=== PATIENT | female | born 1955 | race Caucasian/White ===

== ENCOUNTER 2020-07-01 11:22 | Outpatient (REF) | payer MEDICARE, SELFPAY ==
[2020-07-01 14:15] LABS: MANUAL DIFF FLAG NO
[2020-07-01 14:22] LABS: Basophils Percent Auto 0.4 % (0-2); Eosinophils Absolute Auto 0.1 X10*3/uL (0.0-0.4); Eosinophils Percent Auto 1.5 % (0-4); Hematocrit 35.3 % (37-47); Hemoglobin 11.3 g/dl (12.0-16.0); Lymphocytes Absolute Auto 1.4 X10*3/uL (1.2-4.9); Lymphocytes Percent Auto 30.7 % (20-40); Mean Corpuscular Hemoglobin 32.1 pg (27.0-33.0); Mean Corpuscular Volume 100.3 fL (80-98); Mean Platelet Volume 11.6 fL (9.4-12.3); Monocytes Absolute Auto 0.3 X10*3/uL (0.1-1.2); Monocytes Percent Auto 6.2 % (2-11); Neutrophils Absolute Auto 2.9 X10*3/uL (2.0-8.3); Neutrophils Percent Auto 61.2 % (45-73); Platelet Count 134 X10*3/uL (160-400); Red Blood Count 3.52 X10*6/uL (4.20-5.50); White Blood Count 4.7 X10*3/uL (4.8-10.8)
[2020-07-01 14:41] LABS: Alanine Aminotransferase 36 U/L (0-31); Albumin Level 4.5 g/dL (3.5-5.0); Alkaline Phosphatase 74 U/L (39-117); Anion Gap 14 (12-20); Aspartate Amino Transferase 38 U/L (5-31); Bilirubin Total 0.3 mg/dL (0.0-1.0); Blood Urea Nitrogen 64 mg/dL (9-16); Calcium 8.9 mg/dL (8.4-10.2); Carbon Dioxide 24 mmol/L (22-29); Chloride 107 mmol/L (96-108); Cholesterol 270 mg/dL; Estimated Glomerular Filt Rate 23; Glucose Fasting 86 mg/dL (60-99); HDL Cholesterol 86 mg/dL; LDL Cholesterol Calculated 167 mg/dl; Potassium 4.5 mmol/l (3.3-5.1); Sodium 140 mmol/L (135-145); Total Protein 6.7 g/dL (6.5-8.0); Triglycerides 85 mg/dL
== END 2020-07-01 11:23 | disposition home or self-care (01) ==
LOC: HO.10HDL 11:22
PROVIDERS: Visit Provider Internal Medicine Medical Oncology
DX: D69.6 Thrombocytopenia, unspecified (principal); E78.00 Pure hypercholesterolemia, unspecified; R63.6 Underweight
CPT/HCPCS: 36415; 80053; 80061; 85025

== ENCOUNTER 2020-07-08 11:24 | Outpatient (REF) | payer MEDICARE, SELFPAY ==
[2020-07-08 14:42] LABS: Erythrocyte Sedimentation Rate 11 MM/HR (0-20)
[2020-07-08 14:48] LABS: Free T4 (Free Thyroxine) 0.91 ng/dL (0.71-1.85); Thyroid Stimulating Hormone 2.02 uIU/mL (0.32-4.0)
== END 2020-07-08 11:25 | disposition home or self-care (01) ==
LOC: HO.10HDL 11:24
PROVIDERS: Visit Provider Internal Medicine Medical Oncology
DX: D69.6 Thrombocytopenia, unspecified (principal); R63.6 Underweight; E06.9 Thyroiditis, unspecified
CPT/HCPCS: 36415; 84439; 84443; 85652

== ENCOUNTER 2020-07-22 10:47 | Outpatient (REF) | payer MEDICARE, SELFPAY ==
[2020-07-22 14:35] LABS: Anion Gap 14 (12-20); Blood Urea Nitrogen 71 mg/dL (9-16); Calcium 8.8 mg/dL (8.4-10.2); Carbon Dioxide 25 mmol/L (22-29); Chloride 107 mmol/L (96-108); Estimated Glomerular Filt Rate 26; Phosphorus 5.4 mg/dL (2.7-4.5); Potassium 4.8 mmol/l (3.3-5.1); Sodium 141 mmol/L (135-145)
[2020-07-22 14:56] LABS: Renal w Reflex Lab Use Only Order verified
== END 2020-07-22 10:48 | disposition home or self-care (01) ==
LOC: HO.10HDL 10:47
PROVIDERS: Visit Provider Internal Medicine Nephrology
DX: R94.4 Abnormal results of kidney function studies (principal); N26.1 Atrophy of kidney (terminal); N18.9 Chronic kidney disease, unspecified
CPT/HCPCS: 36415; 80051; 82310; 82565; 84100; 84520

== ENCOUNTER 2020-08-04 13:44 | Outpatient (REF) | payer MEDICARE, SELFPAY ==
--- NOTE | ~2020-08-04 | MM_ITS ---
EXAMINATION: MM SCREENING DIGITAL BREAST TOMOSYNTHESIS, BILATERAL CLINICAL INFORMATION: Screening. Asymptomatic. The lifetime risk of breast cancer based on the Tyrer-Cuzick Model is 4%. COMPARISON: Mammography: 04/05/2019, 03/17/2018, 03/09/2017 TECHNIQUE: Digital breast tomosynthesis is performed in both the craniocaudal and mediolateral oblique views along with computer-aided detection (CAD). Synthesized 2D images are generated from the tomosynthesis. FINDINGS: The breasts are heterogeneously dense, which may obscure small masses (ACR BI-RADS breast composition Category c). Parenchymal pattern is similar to prior exams. There is no interval mass or architectural abnormality or abnormal calcifications. Some vascular calcifications are seen posterior 11:30 o'clock position left breast. There is mild retroareolar duct ectasia. The axilla and skin contours are unremarkable. MM/MM tomosynthesis screening BI IMPRESSION: No mammographic evidence of malignancy. ASSESSMENT: BI-RADS 2: Benign RECOMMENDATION: Routine annual mammography screening. This patient's information was entered into a reminder system with a target due date for their next mammogram.
--- NOTE | ~2020-08-04 | MM_ITS ---
EXAMINATION: BONE DENSITOMETRY CLINICAL INDICATION: Osteoporosis. COMPARISON: Previous BD dated 05/22/2019 and baseline BD dated 04/01/2016. TECHNIQUE: Using a [employer] DXA System (software version: 13.1) manufactured by [employer], dual-energy x-ray absorptiometry was performed of the lumbar spine and left hip. The images are of good technical quality. Summary results are attached. FINDINGS: AP SPINE L1-L2 (excluding L3 and L4): The data of L1-L4 has been changed to exclude the L3 and L4 vertebral bodies, because degenerative changes at these levels may cause overestimation of lumbar spine density. Current: BMD 1.223 g/cm2, Z-score 2.9, T-score 0.5, normal, 0.3% increase from previous, 1.7% decrease from baseline (<5% change is not significant). Prior: BMD 1.219 g/cm2. Baseline: BMD 1.244 g/cm2. LEFT FEMUR, NECK: Current: BMD 0.839 g/cm2, Z-score 0.6, T-score -1.4, osteopenia. Prior: BMD 0.872 g/cm2. Baseline: BMD 0.989 g/cm2. LEFT FEMUR, TOTAL: Current: BMD 0.985 g/cm2, Z-score 1.7, T-score -0.2, normal, 2.1% decrease from previous, 6.9% decrease from baseline (<5% change is not significant). Prior: BMD 1.006 g/cm2. Baseline: BMD 1.058 g/cm2. IDENTIFIED RISK FACTORS: Menopause, glucocorticoids (chronic), low calcium intake, renal, low body weight. HISTORY OF FRACTURE: None listed. MEDICATIONS: Vitamin D. MM/XR DEXA axial skeleton IMPRESSION: 1. DIAGNOSIS: Osteopenia based on the lowest T-score value of -1.4 in the femoral neck applying World Health Organization criteria. 2. 10-YEAR FRACTURE RISK PREDICTION, FRAX: Major osteoporotic fracture (clinical spine, forearm, hip or shoulder) 11.3%. Hip fracture 1.7%. 3. Treatment Recommendations: NOF guidelines recommend consideration for treatment in postmenopausal women and men age 50 and older presenting with the following: -A hip or vertebral (clinical or morphometric) fracture. -T-score less than or equal to -2.5 at the femoral neck or spine after appropriate evaluation to exclude secondary causes. -Low bone mass at the hip or spine and a 10-year fracture probability by FRAX of greater than or equal to 3% for hip fracture or greater than or equal to 20% for major osteoporotic fracture based on the [place] adapted WHO algorithm. 4. Other Recommendations: All treatment decisions require clinical judgment and consideration of individual patient factors, including patient preferences, comorbidities, previous drug use, risk factors not captured in the FRAX model (e.g. frailty, falls, vitamin D deficiency, increased bone turnover, interval significant decline in bone density) and possible under or overestimation of fracture risk by FRAX. Additional medical evaluation for secondary cause of low bone mineral density may be appropriate. FUTURE SCAN RECOMMENDATION: People with diagnosed cases of osteoporosis or at high risk for fracture should have regular bone mineral density tests. For patients eligible for Medicare, routine testing is allowed once every 2 years. The testing frequency can be increased to one year for patients who have rapidly progressing disease, those who are receiving or discontinuing medical therapy to restore bone mass, or have additional risk factors.
== END 2020-08-04 13:45 | disposition home or self-care (01) ==
LOC: HO.MAMMO 13:44
PROVIDERS: PCP Internal Medicine Medical Oncology; Visit Provider Internal Medicine Medical Oncology
DX: Z12.31 Encounter for screening mammogram for malignant neoplasm of breast (principal); Z13.820 Encounter for screening for osteoporosis; M85.88 Other specified disorders of bone density and structure, other site
CPT/HCPCS: 77063; 77067; 77080

== ENCOUNTER 2020-08-08 09:59 | Day surgery (SDC) | payer MEDICARE, SELFPAY ==
[2020-08-05 14:47] VITALS: BMI 16.5
--- NOTE | 2020-08-07 09:35 | P.CONAN_ITS ---
Documented by User: Alexia Sol 08/07/20 10:59 HPI - Anesthesia Eval Consult details Narrative: 65yo F for Colonoscopy [facility] Past Medical History Medical History (Updated 08/07/20 @ 10:59 by Alexia Sol) Anemia Asthma Chronic kidney disease DDD (degenerative disc disease) Degenerative arthritis of cervical spine Environmental allergies Hypothyroidism Low back pain Neck pain Osteoarthritis Rotator cuff arthropathy of right shoulder Single kidney Thrombocytopenia Surgical History Surgical History (Updated 08/05/20 @ 14:45 by Erin Gallagher) History of tonsillectomy and adenoidectomy Hx of bilateral cataract extraction Hx of colonoscopy Hx of nasal septoplasty Social History Social History (Updated 08/05/20 @ 14:46 by Erin Gallagher) Alcohol intake: current Alcohol intake frequency: holidays/special occasions only Smoking Status: Never smoker Use of substances other than those prescribed or required for medical reasons: No Advance Directives: No Advance Directives Information Provided: No Advance Directives on File: No Meds Allergies Allergy/AdvReac Type Severity Reaction Status Date / Time No Known Allergies Allergy Verified 08/05/20 14:46 Home Medications Medication Instructions Recorded Confirmed Last Taken Type Fish Oil-Vit D3 08/07/20 08/07/20 Unknown History budesonide [Pulmicort Flexhaler] 2 puff PO BID 08/07/20 08/07/20 Unknown History Exam Exam Date and Time: August 07, 2020 0935 Height,Weight and Vital Signs: Height 5 ft 4 in Weight 43.545 kg Pertinent Lab Results Pertinent Lab Results: Laboratory Tests 07/01/20 07/22/20 11:30 10:58 WBC 4.7 L Hgb 11.3 L Hct 35.3 L Plt Count 134 L Sodium 141 Potassium 4.8 Chloride 107 Carbon Dioxide 25 BUN 71 H Creatinine 1.93 H Assessment and Plan Assessment Anesthesia Assessment: Chart Reviewed Documented by User: Elda Singleton 08/08/20 11:38 [facility] Past Medical History Medical History (Updated 08/07/20 @ 10:59 by Alexia Sol) Anemia Asthma Chronic kidney disease DDD (degenerative disc disease) Degenerative arthritis of cervical spine Environmental allergies Hypothyroidism Low back pain Neck pain Osteoarthritis Rotator cuff arthropathy of right shoulder Single kidney Thrombocytopenia Family History Family history of problems with anesthesia: No Surgical History Surgical History (Updated 08/05/20 @ 14:45 by Erin Gallagher) History of tonsillectomy and adenoidectomy Hx of bilateral cataract extraction Hx of colonoscopy Hx of nasal septoplasty History of Problems with Anesthesia: No Social History Social History (Updated 08/05/20 @ 14:46 by Erin Gallagher) Alcohol intake: current Alcohol intake frequency: holidays/special occasions only Smoking Status: Never smoker Use of substances other than those prescribed or required for medical reasons: No Advance Directives: No Advance Directives Information Provided: No Advance Directives on File: No Meds Allergies Allergy/AdvReac Type Severity Reaction Status Date / Time No Known Allergies Allergy Verified 08/05/20 14:46 Home Medications Medication Instructions Recorded Confirmed Last Taken Type Fish Oil-Vit D3 08/07/20 08/07/20 Unknown History budesonide [Pulmicort Flexhaler] 2 puff PO BID 08/07/20 08/07/20 Unknown History Exam Height,Weight and Vital Signs: Vital Signs Temp Pulse Resp BP Pulse Ox 08/08/20 10:46 98.4 F 49 L 18 163/46 H 100 Airway Mallampati Class: III (Small mouth) TM Dist: >3cm Neck ROM: Full Heart: RRR Lungs: CTAB Assessment and Plan Assessment Anesthesia Assessment: Anesthesia Plan Discussed and Chart Reviewed Final Anesthetic Review NPO: Yes ASA Class: III Final Preanesthetic Review: No Changes in Pt Med Stat, Meds/Allgs Chart Reviewed, Consent Obtained/Reviewed and Anes Risks/Benef Reviewed Patient Risk: Intermediate Procedure Risk: Low Assessment/Block/Sedation in SS: Assess/Block/Sedation-SS Anesthetic Plan Anesthetic Plan: MAC: Disposition: Standard PACU
[2020-08-08 10:46] VITALS: BP 163/46; PULSE 49; RESP 18; TEMP 36.9; O2SAT 100
[2020-08-08] MEDS: 0.9 % Sodium Chloride 1,000 ML 50 ML IVCONT (10:53)
--- NOTE | 2020-08-08 11:05 | MHC.SHP ---
Pre-Procedural Eval Section A The patient is an INPATIENT: No Changes since office visit: No Cold of Flu in the past 2 weeks, No New Medical Problems, No Changes in Medication and No Patient answered all questions The History & Physical has been completed within 30 days and I have reviewed it.: Yes Section B Chief Complaint: screening Allergies: Allergies Allergy/AdvReac Type Severity Reaction Status Date / Time No Known Allergies Allergy Verified 08/05/20 14:46 Plan I have reviewed the history and physical and performed a pertinent physical examination on my patient. No changes have occurred unless specified.
[2020-08-08 11:32] VITALS: BP 108/34; PULSE 55; RESP 16; TEMP 36.1; O2SAT 99
--- NOTE | 2020-08-08 11:41 | PM.OP ---
Brief Operative Note Date of Service: 08/08/20 Pre-op diagnosis: screening Post-op diagnosis: same Surgeon: Fady Del Cid Estimated blood loss (mL): 0 Pathology: none sent Condition: stable Disposition: PACU
[2020-08-08 11:47] VITALS: BP 132/51; PULSE 53; RESP 16; TEMP 36.1; O2SAT 100
--- NOTE | 2020-08-08 12:06 | OP_ITS ---
SURGEON: Fady Del Cid MD INDICATIONS: Colon cancer screening and personal history of colon polyps. PREOPERATIVE DIAGNOSIS: POSTOPERATIVE DIAGNOSIS: PROCEDURE PERFORMED: Colonoscopy to the terminal ileum. ESTIMATED BLOOD LOSS: COMPLICATIONS: ANESTHESIA: ASSISTANTS: SPECIMENS: MEDICATIONS: Monitored anesthesia care. DESCRIPTION OF PROCEDURE: History and physical performed. The risks and benefits of the procedure were explained to the patient. Informed consent was obtained. The patient was placed in the left lateral decubitus position. A digital rectal exam was performed and was found to be normal. The Olympus pediatric video colonoscope was introduced into the rectum and advanced to the cecum without difficulty. The cecum was identified by transillumination, palpation, and identification of ileocecal valve. Examination was performed and the scope was removed. She tolerated the procedure well and was taken to recovery area in stable condition. FINDINGS: The terminal ileum was normal. The visualized colonic mucosa was normal. The quality of prep was good. No polyps were identified. Retroflexed examination showed small internal hemorrhoids. IMPRESSION: Normal colonoscopy. RECOMMENDATION: 5-year followup colonoscopy because of personal history of colon polyps should be considered. MD QUINTON Shields/FANNIE / [id number]
== END 2020-08-08 12:05 | disposition home or self-care (01) ==
PROVIDERS: PCP Internal Medicine Medical Oncology; Visit Provider Internal Medicine Gastroenterology
PROC: 0DJD8ZZ Inspection of Lower Intestinal Tract, Via Natural or Artificial Opening Endoscopic (ICD-10-PCS; CPT 45378; principal; 2020-08-08 11:20)
DX: Z12.11 Encounter for screening for malignant neoplasm of colon (principal); K64.8 Other hemorrhoids; Z86.010 Personal history of colon polyps
CPT/HCPCS: G0105

== ENCOUNTER 2020-09-24 11:46 | Outpatient (REF) | payer MEDICARE, SELFPAY ==
[2020-09-24 14:08] LABS: MANUAL DIFF FLAG NO
[2020-09-24 14:16] LABS: Basophils Percent Auto 0.5 % (0-2); Eosinophils Absolute Auto 0.1 X10*3/uL (0.0-0.4); Eosinophils Percent Auto 2.7 % (0-4); Hematocrit 31.2 % (37-47); Hemoglobin 9.6 g/dl (12.0-16.0); Lymphocytes Absolute Auto 1.1 X10*3/uL (1.2-4.9); Mean Corpuscular HGB Conc 30.8 g/dl (31.0-35.0); Mean Corpuscular Hemoglobin 32.1 pg (27.0-33.0); Mean Corpuscular Volume 104.3 fL (80-98); Mean Platelet Volume 11.9 fL (9.4-12.3); Monocytes Absolute Auto 0.4 X10*3/uL (0.1-1.2); Monocytes Percent Auto 8.9 % (2-11); Neutrophils Absolute Auto 2.5 X10*3/uL (2.0-8.3); Neutrophils Percent Auto 61.9 % (45-73); Red Blood Count 2.99 X10*6/uL (4.20-5.50); Red Cell Distribution Width 12.5 % (11.0-16.0)
[2020-09-24 14:19] LABS: Platelet Count 95 X10*3/uL (160-400)
[2020-09-24 14:45] LABS: Alanine Aminotransferase 55 U/L (0-31); Albumin Level 4.4 g/dL (3.5-5.0); Alkaline Phosphatase 101 U/L (39-117); Anion Gap 15 (12-20); Aspartate Amino Transferase 47 U/L (5-31); Bilirubin Total 0.3 mg/dL (0.0-1.0); Blood Urea Nitrogen 58 mg/dL (9-16); Calcium 8.9 mg/dL (8.4-10.2); Carbon Dioxide 25 mmol/L (22-29); Chloride 108 mmol/L (96-108); Cholesterol 172 mg/dL; Estimated Glomerular Filt Rate 27; Glucose Fasting 92 mg/dL (60-99); HDL Cholesterol 91 mg/dL; LDL Cholesterol Calculated 76 mg/dl; Lactate Dehydrogenase 301 U/L (122-220); Potassium 4.7 mmol/L (3.3-5.1); Sodium 143 mmol/L (135-145); Total Protein 6.5 g/dL (6.5-8.0); Triglycerides 29 mg/dL
== END 2020-09-24 11:47 | disposition home or self-care (01) ==
LOC: HO.10HDL 11:46
PROVIDERS: Visit Provider Internal Medicine Medical Oncology
DX: E06.9 Thyroiditis, unspecified (principal); R63.6 Underweight; D69.6 Thrombocytopenia, unspecified; E78.00 Pure hypercholesterolemia, unspecified
CPT/HCPCS: 36415; 80053; 80061; 82550; 83615; 85025

== ENCOUNTER 2020-10-09 09:26 | Outpatient (REF) | payer MEDICARE, SELFPAY ==
--- NOTE | ~2020-10-09 | US_ITS ---
EXAMINATION: US ABDOMEN COMPLETE CLINICAL INFORMATION: Enlarged spleen. COMPARISON: Renal ultrasound 11/05/2016. TECHNIQUE: Real-time imaging of the abdominal viscera. Technically limited study secondary to thin body habitus. FINDINGS: PANCREAS: Normal. ABDOMINAL AORTA: The proximal, mid, and distal segments are normal in caliber. INFERIOR VENA CAVA: Visualized portions are normal. LIVER: Normal. The liver is normal in size. The liver contour is normal. Parenchymal echogenicity is normal. No focal hepatic lesion. There is no intrahepatic biliary duct dilatation seen. GALLBLADDER: Normal. The gallbladder is physiologically distended without evidence of stones, sludge, polyps, wall thickening or pericholecystic fluid. COMMON BILE DUCT: Normal in caliber measuring 0.3 cm in diameter. RIGHT KIDNEY: There is a 9 x 10 x 7 mm cyst in the upper pole. No hydronephrosis or renal calculi. The kidney measures 9.0 cm in maximum dimension. LEFT KIDNEY: Normal. No hydronephrosis. No renal calculi or focal parenchymal lesions. The kidney measures 7.9 cm in maximum dimension. SPLEEN: Normal. The spleen measures 11.9 cm in maximum dimension. FREE FLUID: None. US/US abdomen complete IMPRESSION: Normal-size spleen. Small right renal cyst.
== END 2020-10-09 09:27 | disposition home or self-care (01) ==
LOC: HO.US 09:26
PROVIDERS: Visit Provider Internal Medicine Medical Oncology
DX: R16.1 Splenomegaly, not elsewhere classified (principal)
CPT/HCPCS: 76700

== ENCOUNTER 2020-10-14 10:21 | Outpatient (REF) | payer MEDICARE, SELFPAY ==
[2020-10-14 13:50] LABS: MANUAL DIFF FLAG NO
[2020-10-14 13:59] LABS: Basophils Percent Auto 0.4 % (0-2); Eosinophils Absolute Auto 0.1 X10*3/uL (0.0-0.4); Eosinophils Percent Auto 1.1 % (0-4); Hematocrit 33.2 % (37-47); Hemoglobin 10.5 g/dl (12.0-16.0); Imm Gran Abs Auto 0.01 X10*3/uL (0.00-0.03); Imm Gran Pct Auto 0.2 % (0.0-0.4); Lymphocytes Absolute Auto 1.1 X10*3/uL (1.2-4.9); Lymphocytes Percent Auto 24.5 % (20-40); Mean Corpuscular HGB Conc 31.6 g/dl (31.0-35.0); Mean Corpuscular Hemoglobin 32.5 pg (27.0-33.0); Mean Corpuscular Volume 102.8 fL (80-98); Mean Platelet Volume 12.4 fL (9.4-12.3); Monocytes Absolute Auto 0.3 X10*3/uL (0.1-1.2); Monocytes Percent Auto 6.9 % (2-11); Neutrophils Absolute Auto 3.1 X10*3/uL (2.0-8.3); Neutrophils Percent Auto 66.9 % (45-73); Platelet Count 104 X10*3/uL (160-400); Red Blood Count 3.23 X10*6/uL (4.20-5.50); Red Cell Distribution Width 11.9 % (11.0-16.0); White Blood Count 4.7 X10*3/uL (4.8-10.8)
[2020-10-14 14:22] LABS: Alanine Aminotransferase 48 U/L (0-31); Albumin Level 4.4 g/dL (3.5-5.0); Alkaline Phosphatase 100 U/L (39-117); Anion Gap 14 (12-20); Aspartate Amino Transferase 44 U/L (5-31); Bilirubin Total 0.5 mg/dL (0.0-1.0); Blood Urea Nitrogen 57 mg/dL (9-16); Carbon Dioxide 26 mmol/L (22-29); Chloride 107 mmol/L (96-108); Estimated Glomerular Filt Rate 24; Gamma Glutamyl Transpeptidase 83 U/L (7-33); Glucose Fasting 93 mg/dL (60-99); Potassium 4.9 mmol/L (3.3-5.1); Sodium 142 mmol/L (135-145); Total Protein 6.4 g/dL (6.5-8.0)
[2020-10-14 14:57] LABS: Folate 15.9 ng/mL (> or = 4.0); Vitamin B12 471 pg/mL (200-900)
== END 2020-10-14 10:22 | disposition home or self-care (01) ==
LOC: HO.10HDL 10:21
PROVIDERS: Visit Provider Internal Medicine Medical Oncology
DX: E06.9 Thyroiditis, unspecified (principal); R94.5 Abnormal results of liver function studies; R63.6 Underweight; D69.6 Thrombocytopenia, unspecified; E78.00 Pure hypercholesterolemia, unspecified
CPT/HCPCS: 36415; 80053; 82607; 82746; 82977; 85025

== ENCOUNTER 2021-01-06 10:57 | Outpatient (REF) | payer MEDICARE, SELFPAY ==
[2021-01-06 12:03] LABS: MANUAL DIFF FLAG NO
[2021-01-06 12:11] LABS: Basophils Percent Auto 0.5 % (0-2); Eosinophils Absolute Auto 0.1 X10*3/uL (0.0-0.4); Eosinophils Percent Auto 1.8 % (0-4); Hematocrit 32.9 % (37-47); Hemoglobin 10.4 g/dl (12.0-16.0); Imm Gran Abs Auto 0.01 X10*3/uL (0.00-0.03); Imm Gran Pct Auto 0.3 % (0.0-0.4); Lymphocytes Absolute Auto 0.9 X10*3/uL (1.2-4.9); Lymphocytes Percent Auto 23.7 % (20-40); Mean Corpuscular HGB Conc 31.6 g/dl (31.0-35.0); Mean Corpuscular Volume 101.2 fL (80-98); Mean Platelet Volume 11.4 fL (9.4-12.3); Monocytes Absolute Auto 0.3 X10*3/uL (0.1-1.2); Monocytes Percent Auto 6.6 % (2-11); Neutrophils Absolute Auto 2.6 X10*3/uL (2.0-8.3); Neutrophils Percent Auto 67.1 % (45-73); Red Blood Count 3.25 X10*6/uL (4.20-5.50); White Blood Count 3.8 X10*3/uL (4.8-10.8)
[2021-01-06 12:14] LABS: Platelet Count 96 X10*3/uL (160-400)
[2021-01-06 12:28] LABS: Alanine Aminotransferase 46 U/L (0-31); Albumin Level 4.1 g/dL (3.5-5.0); Alkaline Phosphatase 90 U/L (39-117); Anion Gap 12 (12-20); Aspartate Amino Transferase 47 U/L (5-31); Bilirubin Total 0.4 mg/dL (0.0-1.0); Blood Urea Nitrogen 52 mg/dL (9-16); Calcium 9.3 mg/dL (8.4-10.2); Carbon Dioxide 25 mmol/L (22-29); Chloride 112 mmol/L (96-108); Cholesterol 231 mg/dL; Estimated Glomerular Filt Rate 26; Gamma Glutamyl Transpeptidase 85 U/L (7-33); Glucose Fasting 91 mg/dL (60-99); Potassium 4.6 mmol/L (3.3-5.1); Sodium 144 mmol/L (135-145); Total Protein 6.3 g/dL (6.5-8.0); Triglycerides 46 mg/dL
[2021-01-06 12:43] LABS: HDL Cholesterol 101 mg/dL; LDL Cholesterol Calculated 121 mg/dl
== END 2021-01-06 10:58 | disposition home or self-care (01) ==
LOC: HO.LAB 10:57
PROVIDERS: PCP Internal Medicine Medical Oncology; Visit Provider Internal Medicine Medical Oncology
DX: E06.9 Thyroiditis, unspecified (principal); E78.00 Pure hypercholesterolemia, unspecified
CPT/HCPCS: 36415; 80053; 80061; 82977; 85025

== ENCOUNTER 2021-03-03 15:32 | Outpatient (REF) | payer MEDICARE, SELFPAY ==
[2021-03-03 17:18] LABS: Anion Gap 14 (12-20); Blood Urea Nitrogen 47 mg/dL (9-16); Calcium 8.9 mg/dL (8.4-10.2); Carbon Dioxide 20 mmol/L (22-29); Chloride 111 mmol/L (96-108); Estimated Glomerular Filt Rate 26; Phosphorus 4.6 mg/dL (2.7-4.5); Potassium 5.1 mmol/L (3.3-5.1); Sodium 140 mmol/L (135-145)
[2021-03-03 18:18] LABS: Renal w Reflex Lab Use Only Order verified
== END 2021-03-03 15:33 | disposition home or self-care (01) ==
LOC: HO.LAB 15:32
PROVIDERS: PCP Internal Medicine Medical Oncology; Visit Provider Internal Medicine Nephrology
DX: R94.4 Abnormal results of kidney function studies (principal); N18.30 Chronic kidney disease, stage 3 unspecified; N26.1 Atrophy of kidney (terminal)
CPT/HCPCS: 36415; 80051; 82310; 82565; 84100; 84520

== ENCOUNTER 2021-04-07 11:50 | Outpatient (REF) | payer MEDICARE, SELFPAY ==
[2021-04-07 13:56] LABS: MANUAL DIFF FLAG NO
[2021-04-07 13:59] LABS: Basophils Percent Auto 0.2 % (0-2); Eosinophils Absolute Auto 0.1 X10*3/uL (0.0-0.4); Eosinophils Percent Auto 1.9 % (0-4); Hematocrit 34.1 % (37-47); Hemoglobin 10.9 g/dl (12.0-16.0); Imm Gran Abs Auto 0.01 X10*3/uL (0.00-0.03); Imm Gran Pct Auto 0.2 % (0.0-0.4); Lymphocytes Absolute Auto 1.2 X10*3/uL (1.2-4.9); Lymphocytes Percent Auto 28.1 % (20-40); Mean Corpuscular Hemoglobin 31.8 pg (27.0-33.0); Mean Corpuscular Volume 99.4 fL (80-98); Mean Platelet Volume 11.2 fL (9.4-12.3); Monocytes Absolute Auto 0.4 X10*3/uL (0.1-1.2); Monocytes Percent Auto 8.4 % (2-11); Neutrophils Absolute Auto 2.6 X10*3/uL (2.0-8.3); Neutrophils Percent Auto 61.2 % (45-73); Platelet Count 136 X10*3/uL (160-400); Red Blood Count 3.43 X10*6/uL (4.20-5.50); White Blood Count 4.3 X10*3/uL (4.8-10.8)
[2021-04-07 14:35] LABS: Alanine Aminotransferase 29 U/L (0-31); Albumin Level 4.2 g/dL (3.5-5.0); Alkaline Phosphatase 90 U/L (39-117); Anion Gap 11 (12-20); Aspartate Amino Transferase 34 U/L (5-31); Bilirubin Total 0.2 mg/dL (0.0-1.0); Blood Urea Nitrogen 42 mg/dL (9-16); Calcium 9.1 mg/dL (8.4-10.2); Carbon Dioxide 26 mmol/L (22-29); Chloride 110 mmol/L (96-108); Cholesterol 273 mg/dL; Estimated Glomerular Filt Rate 26; Glucose Fasting 91 mg/dL (60-99); HDL Cholesterol 84 mg/dL; LDL Cholesterol Calculated 172 mg/dl; Potassium 4.7 mmol/L (3.3-5.1); Sodium 142 mmol/L (135-145); Total Protein 6.4 g/dL (6.5-8.0); Triglycerides 89 mg/dL
== END 2021-04-07 11:51 | disposition home or self-care (01) ==
LOC: HO.10HDL 11:50
PROVIDERS: Visit Provider Internal Medicine Medical Oncology
DX: E78.00 Pure hypercholesterolemia, unspecified (principal); E06.9 Thyroiditis, unspecified; D69.6 Thrombocytopenia, unspecified
CPT/HCPCS: 36415; 80053; 80061; 85025

== ENCOUNTER 2021-08-07 09:50 | Outpatient (REF) | payer MEDICARE, SELFPAY ==
[2021-08-07 10:29] LABS: MANUAL DIFF FLAG NO
[2021-08-07 11:18] LABS: Basophils Percent Auto 0.5 % (0-2); Eosinophils Absolute Auto 0.1 X10*3/uL (0.0-0.4); Eosinophils Percent Auto 2.6 % (0-4); Hematocrit 34.2 % (37.0-47.0); Hemoglobin 10.8 g/dl (12.0-16.0); Imm Gran Abs Auto 0.01 X10*3/uL (0.00-0.03); Imm Gran Pct Auto 0.3 % (0.0-0.4); Lymphocytes Absolute Auto 1.1 X10*3/uL (1.2-4.9); Lymphocytes Percent Auto 28.6 % (20-40); Mean Corpuscular HGB Conc 31.6 g/dl (31.0-35.0); Mean Corpuscular Hemoglobin 31.2 pg (27.0-33.0); Mean Corpuscular Volume 98.8 fL (80.0-98.0); Mean Platelet Volume 11.6 fL (9.4-12.3); Monocytes Absolute Auto 0.3 X10*3/uL (0.1-1.2); Monocytes Percent Auto 8.2 % (2-11); Neutrophils Absolute Auto 2.3 x10*3/uL (2.0-8.3); Neutrophils Percent Auto 59.8 % (45-73); Platelet Count 121 X10*3/uL (160-400); Red Blood Count 3.46 X10*6/uL (4.20-5.50); Red Cell Distribution Width 11.9 % (11.0-16.0); White Blood Count 3.8 X10*3/uL (4.8-10.8)
[2021-08-07 11:36] LABS: Alanine Aminotransferase 29 U/L (0-31); Albumin Level 4.1 g/dL (3.5-5.0); Alkaline Phosphatase 102 U/L (39-117); Anion Gap 11 (12-20); Aspartate Amino Transferase 34 U/L (5-31); Bilirubin Total 0.3 mg/dL (0.0-1.0); Blood Urea Nitrogen 60 mg/dL (9-16); Calcium 9.5 mg/dL (8.4-10.2); Carbon Dioxide 28 mmol/L (22-29); Chloride 109 mmol/L (96-108); Cholesterol 297 mg/dL; Estimated Glomerular Filt Rate 22; Glucose Fasting 92 mg/dL (60-99); HDL Cholesterol 86 mg/dL; LDL Cholesterol Calculated 194 mg/dl; Potassium 4.8 mmol/L (3.3-5.1); Sodium 143 mmol/L (135-145); Total Protein 6.4 g/dL (6.5-8.0); Triglycerides 86 mg/dL
== END 2021-08-07 09:51 | disposition home or self-care (01) ==
LOC: HO.10HDL 09:50
PROVIDERS: Visit Provider Internal Medicine Medical Oncology
DX: D61.818 Other pancytopenia (principal); D69.6 Thrombocytopenia, unspecified
CPT/HCPCS: 36415; 80053; 80061; 85025

== ENCOUNTER 2021-08-18 11:03 | Outpatient (REF) | payer MEDICARE, SELFPAY ==
--- NOTE | ~2021-08-18 | MM_ITS ---
EXAMINATION: MM SCREENING DIGITAL BREAST TOMOSYNTHESIS, BILATERAL CLINICAL INFORMATION: Screening. Asymptomatic. The lifetime risk of breast cancer based on the Tyrer-Cuzick Model is 4%. COMPARISON: Mammography: 08/04/2020, 04/05/2019, 03/17/2018 TECHNIQUE: Digital breast tomosynthesis is performed in both the craniocaudal and mediolateral oblique views along with computer-aided detection (CAD). Synthesized 2D images are generated from the tomosynthesis. FINDINGS: The breasts are heterogeneously dense, which may obscure small masses (ACR BI-RADS breast composition Category c). There are no significant masses, abnormal calcifications, or other abnormalities. Parenchymal pattern is similar to prior studies. There is no developing density or architectural abnormality. There is dermal lesion again seen overlying the right axillary tail on MLO view similar to prior studies. The axilla are otherwise unremarkable. No significant changes. MM/MM tomosynthesis screening BI IMPRESSION: No mammographic evidence of malignancy. ASSESSMENT: BI-RADS 2: Benign RECOMMENDATION: Routine annual mammography screening. This patient's information was entered into a reminder system with a target due date for their next mammogram.
== END 2021-08-18 11:04 | disposition home or self-care (01) ==
LOC: HO.MAMMO 11:03
PROVIDERS: PCP Internal Medicine Medical Oncology; Visit Provider Internal Medicine Medical Oncology
DX: Z12.31 Encounter for screening mammogram for malignant neoplasm of breast (principal)
CPT/HCPCS: 77063; 77067

== ENCOUNTER 2021-09-08 10:59 | Outpatient (REF) | payer MEDICARE, SELFPAY ==
[2021-09-08 12:59] LABS: Anion Gap 14 (12-20); Blood Urea Nitrogen 62 mg/dL (9-16); Calcium 9.6 mg/dL (8.4-10.2); Carbon Dioxide 25 mmol/L (22-29); Chloride 107 mmol/L (96-108); Estimated Glomerular Filt Rate 21; Potassium 4.7 mmol/L (3.3-5.1); Sodium 141 mmol/L (135-145)
== END 2021-09-08 11:00 | disposition home or self-care (01) ==
LOC: HO.LAB 10:59
PROVIDERS: PCP Internal Medicine Medical Oncology; Visit Provider Internal Medicine Nephrology
DX: N26.1 Atrophy of kidney (terminal) (principal); N18.32 Chronic kidney disease, stage 3b
CPT/HCPCS: 36415; 80051; 82310; 82565; 84520

== ENCOUNTER 2021-11-07 08:56 | Outpatient (REF) | payer MEDICARE, SELFPAY ==
[2021-11-07 09:12] LABS: MANUAL DIFF FLAG NO
[2021-11-07 09:25] LABS: Basophils Percent Auto 0.4 % (0-2); Eosinophils Absolute Auto 0.1 X10*3/uL (0.0-0.4); Eosinophils Percent Auto 2.9 % (0-4); Hematocrit 31.6 % (37.0-47.0); Imm Gran Abs Auto 0.01 X10*3/uL (0.00-0.03); Imm Gran Pct Auto 0.2 % (0.0-0.4); Lymphocytes Absolute Auto 0.9 X10*3/uL (1.2-4.9); Lymphocytes Percent Auto 20.1 % (20-40); Mean Corpuscular HGB Conc 31.6 g/dl (31.0-35.0); Mean Corpuscular Hemoglobin 31.8 pg (27.0-33.0); Mean Corpuscular Volume 100.6 fL (80.0-98.0); Mean Platelet Volume 10.9 fL (9.4-12.3); Monocytes Absolute Auto 0.4 X10*3/uL (0.1-1.2); Monocytes Percent Auto 7.7 % (2-11); Neutrophils Absolute Auto 3.1 x10*3/uL (2.0-8.3); Neutrophils Percent Auto 68.7 % (45-73); Red Blood Count 3.14 X10*6/uL (4.20-5.50); Red Cell Distribution Width 12.2 % (11.0-16.0); White Blood Count 4.5 X10*3/uL (4.8-10.8)
[2021-11-07 09:26] LABS: Platelet Count 98 X10*3/uL (160-400)
[2021-11-07 09:54] LABS: Alanine Aminotransferase 31 U/L (0-31); Alkaline Phosphatase 78 U/L (39-117); Anion Gap 11 (12-20); Aspartate Amino Transferase 35 U/L (5-31); Bilirubin Total 0.3 mg/dL (0.0-1.0); Blood Urea Nitrogen 55 mg/dL (9-16); Calcium 9.1 mg/dL (8.4-10.2); Carbon Dioxide 26 mmol/L (22-29); Chloride 115 mmol/L (96-108); Cholesterol 185 mg/dL; Estimated Glomerular Filt Rate 20; Glucose Fasting 95 mg/dL (60-99); HDL Cholesterol 92 mg/dL; LDL Cholesterol Calculated 90 mg/dl; Potassium 4.8 mmol/L (3.3-5.1); Sodium 147 mmol/L (135-145); Total Protein 6.2 g/dL (6.5-8.0); Triglycerides 15 mg/dL
== END 2021-11-07 08:57 | disposition home or self-care (01) ==
LOC: HO.LAB 08:56
PROVIDERS: PCP Internal Medicine Medical Oncology; Visit Provider Internal Medicine Medical Oncology
DX: D61.818 Other pancytopenia (principal); R63.6 Underweight; E78.00 Pure hypercholesterolemia, unspecified
CPT/HCPCS: 36415; 80053; 80061; 85025

== ENCOUNTER 2022-01-05 15:27 | Outpatient (REF) | payer MEDICARE, SELFPAY ==
--- NOTE | ~2022-01-05 | XR_ITS ---
EXAMINATION: XR FOOT, LEFT CLINICAL INFORMATION: Foot pain COMPARISON: None TECHNIQUE: AP, lateral, and oblique views of the left foot. FINDINGS: Nondisplaced fracture involving the fifth proximal phalangeal proximal metadiaphysis. No acute visible dislocation. Tiny plantar calcaneal heel spur. Joint spaces and alignment are maintained. Soft tissues are unremarkable. XR/XR foot LT 2V IMPRESSION: Nondisplaced fracture involving the fifth proximal phalangeal proximal metadiaphysis.
== END 2022-01-05 15:28 | disposition home or self-care (01) ==
LOC: HO.XRAY 15:27
PROVIDERS: PCP Internal Medicine Medical Oncology; Visit Provider Internal Medicine Medical Oncology
DX: M79.672 Pain in left foot (principal); M77.42 Metatarsalgia, left foot
CPT/HCPCS: 73620

== ENCOUNTER 2022-03-24 08:02 | Outpatient (REF) | payer MEDICARE, SELFPAY ==
[2022-03-24 10:21] LABS: MANUAL DIFF FLAG NO
[2022-03-24 10:32] LABS: Basophils Percent Auto 0.4 % (0-2); Eosinophils Absolute Auto 0.1 X10*3/uL (0.0-0.4); Eosinophils Percent Auto 1.9 % (0-4); Hemoglobin 10.3 g/dl (12.0-16.0); Imm Gran Abs Auto 0.01 X10*3/uL (0.00-0.03); Imm Gran Pct Auto 0.2 % (0.0-0.4); Lymphocytes Absolute Auto 0.8 X10*3/uL (1.2-4.9); Lymphocytes Percent Auto 15.5 % (20-40); Mean Corpuscular HGB Conc 31.2 g/dl (31.0-35.0); Mean Corpuscular Hemoglobin 31.1 pg (27.0-33.0); Mean Corpuscular Volume 99.7 fL (80.0-98.0); Mean Platelet Volume 11.6 fL (9.4-12.3); Monocytes Absolute Auto 0.4 X10*3/uL (0.1-1.2); Monocytes Percent Auto 8.3 % (2-11); Neutrophils Absolute Auto 3.9 x10*3/uL (2.0-8.3); Neutrophils Percent Auto 73.7 % (45-73); Platelet Count 111 X10*3/uL (160-400); Red Blood Count 3.31 X10*6/uL (4.20-5.50); Red Cell Distribution Width 12.3 % (11.0-16.0); White Blood Count 5.3 X10*3/uL (4.8-10.8)
[2022-03-24 11:07] LABS: Alanine Aminotransferase 34 U/L (0-31); Albumin Level 4.2 g/dL (3.5-5.0); Alkaline Phosphatase 83 U/L (39-117); Anion Gap 16 (12-20); Aspartate Amino Transferase 33 U/L (5-31); Bilirubin Total 0.4 mg/dL (0.0-1.0); Blood Urea Nitrogen 43 mg/dL (9-16); Calcium 9.1 mg/dL (8.4-10.2); Carbon Dioxide 23 mmol/L (22-29); Chloride 110 mmol/L (96-108); Cholesterol 207 mg/dL; Estimated Glomerular Filt Rate 24; Glucose Fasting 89 mg/dL (60-99); HDL Cholesterol 97 mg/dL; LDL Cholesterol Calculated 96 mg/dl; Potassium 4.7 mmol/L (3.3-5.1); Sodium 144 mmol/L (135-145); Total Protein 6.4 g/dL (6.5-8.0); Triglycerides 73 mg/dL
[2022-03-24 11:11] LABS: Erythrocyte Sedimentation Rate 14 MM/HR (0-20)
== END 2022-03-24 08:03 | disposition home or self-care (01) ==
LOC: HO.10HDL 08:02
PROVIDERS: Visit Provider Internal Medicine Medical Oncology
DX: D61.818 Other pancytopenia (principal); E03.9 Hypothyroidism, unspecified
CPT/HCPCS: 36415; 80053; 80061; 85025; 85652

== ENCOUNTER 2022-04-20 09:23 | Outpatient (REF) | payer MEDICARE, SELFPAY ==
[2022-04-20 10:47] LABS: Hematocrit 33.9 % (37.0-47.0); Hemoglobin 10.8 g/dl (12.0-16.0); Mean Corpuscular HGB Conc 31.9 g/dl (31.0-35.0); Mean Corpuscular Hemoglobin 31.8 pg (27.0-33.0); Mean Corpuscular Volume 99.7 fL (80.0-98.0); Mean Platelet Volume 11.1 fL (9.4-12.3); Platelet Count 131 X10*3/uL (160-400); Red Cell Distribution Width 12.3 % (11.0-16.0); White Blood Count 4.6 X10*3/uL (4.8-10.8)
[2022-04-20 10:51] LABS: Anion Gap 15 (12-20); Blood Urea Nitrogen 63 mg/dL (9-16); Calcium 9.2 mg/dL (8.4-10.2); Carbon Dioxide 23 mmol/L (22-29); Chloride 110 mmol/L (96-108); Estimated Glomerular Filt Rate 19; Phosphorus 4.9 mg/dL (2.7-4.5); Sodium 143 mmol/L (135-145); Uric Acid 8.7 mg/dL (2.4-5.7)
[2022-04-22 14:27] LABS: Calcium (PTHI) 9.2 mg/dL (8.6-10.4); PTHI 80 pg/mL (16-77)
== END 2022-04-20 09:24 | disposition home or self-care (01) ==
LOC: HO.10HDL 09:23
PROVIDERS: Visit Provider Internal Medicine Nephrology
DX: N18.32 Chronic kidney disease, stage 3b (principal); N26.1 Atrophy of kidney (terminal)
CPT/HCPCS: 36415; 80051; 82310; 82565; 83970; 84100; 84520; 84550; 85027

== ENCOUNTER 2022-07-19 12:49 | Outpatient (REF) | payer MEDICARE, SELFPAY ==
[2022-07-19 12:58] LABS: MANUAL DIFF FLAG NO
[2022-07-19 13:48] LABS: Basophils Percent Auto 0.5 % (0-2); Eosinophils Absolute Auto 0.2 X10*3/uL (0.0-0.4); Eosinophils Percent Auto 3.5 % (0-4); Hematocrit 35.1 % (37.0-47.0); Hemoglobin 10.8 g/dl (12.0-16.0); Imm Gran Abs Auto 0.01 X10*3/uL (0.00-0.03); Imm Gran Pct Auto 0.2 % (0.0-0.4); Lymphocytes Absolute Auto 1.3 X10*3/uL (1.2-4.9); Lymphocytes Percent Auto 23.1 % (20-40); Mean Corpuscular HGB Conc 30.8 g/dl (31.0-35.0); Mean Corpuscular Hemoglobin 30.9 pg (27.0-33.0); Mean Corpuscular Volume 100.3 fL (80.0-98.0); Mean Platelet Volume 11.3 fL (9.4-12.3); Monocytes Absolute Auto 0.5 X10*3/uL (0.1-1.2); Monocytes Percent Auto 8.5 % (2-11); Neutrophils Absolute Auto 3.5 x10*3/uL (2.0-8.3); Neutrophils Percent Auto 64.2 % (45-73); Platelet Count 124 X10*3/uL (160-400); Red Cell Distribution Width 12.7 % (11.0-16.0); White Blood Count 5.5 X10*3/uL (4.8-10.8)
[2022-07-19 14:13] LABS: Alanine Aminotransferase 45 U/L (0-31); Albumin Level 4.3 g/dL (3.5-5.0); Alkaline Phosphatase 109 U/L (39-117); Anion Gap 14 (12-20); Aspartate Amino Transferase 40 U/L (5-31); Bilirubin Total 0.3 mg/dL (0.0-1.0); Blood Urea Nitrogen 72 mg/dL (9-16); Calcium 9.2 mg/dL (8.4-10.2); Carbon Dioxide 24 mmol/L (22-29); Chloride 111 mmol/L (96-108); Cholesterol 242 mg/dL; Estimated Glomerular Filt Rate 21; Glucose Fasting 101 mg/dL (60-99); HDL Cholesterol 95 mg/dL; LDL Cholesterol Calculated 138 mg/dl; Potassium 5.7 mmol/L (3.3-5.1); Sodium 143 mmol/L (135-145); Total Protein 6.5 g/dL (6.5-8.0); Triglycerides 47 mg/dL
[2022-07-19 14:29] LABS: Vitamin D 25-OH Total 30.5 ng/mL (>30)
== END 2022-07-19 12:50 | disposition home or self-care (01) ==
LOC: HO.LAB 12:49
PROVIDERS: PCP Internal Medicine Medical Oncology; Visit Provider Internal Medicine Medical Oncology
DX: D61.818 Other pancytopenia (principal); R63.6 Underweight; D70.9 Neutropenia, unspecified; E78.00 Pure hypercholesterolemia, unspecified; M81.0 Age-related osteoporosis without current pathological fracture; D69.6 Thrombocytopenia, unspecified
CPT/HCPCS: 36415; 80053; 80061; 82306; 85025

== ENCOUNTER 2022-07-22 11:05 | Outpatient (REF) | payer MEDICARE, SELFPAY ==
[2022-07-22 14:08] LABS: Anion Gap 15 (12-20); Carbon Dioxide 21 mmol/L (22-29); Chloride 112 mmol/L (96-108); Potassium 4.9 mmol/L (3.3-5.1); Sodium 143 mmol/L (135-145)
== END 2022-07-22 11:06 | disposition home or self-care (01) ==
LOC: HO.10HDL 11:05
PROVIDERS: Visit Provider Internal Medicine Medical Oncology
DX: D61.818 Other pancytopenia (principal); N18.30 Chronic kidney disease, stage 3 unspecified
CPT/HCPCS: 36415; 80051

== ENCOUNTER 2022-08-25 07:24 | Outpatient (REF) | payer MEDICARE, SELFPAY ==
--- NOTE | ~2022-08-25 | MM_ITS ---
EXAMINATION: BONE DENSITOMETRY CLINICAL INDICATION: Screening. COMPARISON: Previous BD dated 08/04/2020 and baseline BD dated 04/01/2016. TECHNIQUE: Using a [employer] DXA System (software version: 13.1) manufactured by [employer], dual-energy x-ray absorptiometry was performed of the lumbar spine and left hip. The images are of good technical quality. Summary results are attached. FINDINGS: AP SPINE L1-L2 (excluding L3 and L4): The data of L1-L4 has been changed to exclude the L3 and L4 vertebral bodies, because degenerative changes at these levels may cause overestimation of lumbar spine density. Current: BMD 1.206 g/cm2, Z-score 2.6, T-score 0.3, normal, 1.4% decrease from previous, 3.1% decrease from baseline (<5% change is not significant). Prior: BMD 1.223 g/cm2. Baseline: BMD 1.244 g/cm2. LEFT FEMUR, NECK: Current: BMD 0.848 g/cm2, Z-score 0.7, T-score -1.4, osteopenia. Prior: BMD 0.839 g/cm2. Baseline: BMD 0.989 g/cm2. LEFT FEMUR, TOTAL: Current: BMD 0.970 g/cm2, Z-score 1.6, T-score -0.3, normal, 1.5% decrease from previous, 8.3% decrease from baseline (<5% change is not significant). Prior: BMD 0.985 g/cm2. Baseline: BMD 1.058 g/cm2. IDENTIFIED RISK FACTORS: Menopause, low body weight, low calcium intake, renal, glucocorticoids (chronic). HISTORY OF FRACTURE: Toe. MEDICATIONS: None listed. MM/XR DEXA axial skeleton IMPRESSION: 1. DIAGNOSIS: Osteopenia based on the lowest T-score value of -1.4 in the femoral neck applying World Health Organization criteria. 2. 10-YEAR FRACTURE RISK PREDICTION, FRAX: Major osteoporotic fracture (clinical spine, forearm, hip or shoulder) 12.0%. Hip fracture 2.0%. 3. Treatment Recommendations: NOF guidelines recommend consideration for treatment in postmenopausal women and men age 50 and older presenting with the following: -A hip or vertebral (clinical or morphometric) fracture. -T-score less than or equal to -2.5 at the femoral neck or spine after appropriate evaluation to exclude secondary causes. -Low bone mass at the hip or spine and a 10-year fracture probability by FRAX of greater than or equal to 3% for hip fracture or greater than or equal to 20% for major osteoporotic fracture based on the [place] adapted WHO algorithm. 4. Other Recommendations: All treatment decisions require clinical judgment and consideration of individual patient factors, including patient preferences, comorbidities, previous drug use, risk factors not captured in the FRAX model (e.g. frailty, falls, vitamin D deficiency, increased bone turnover, interval significant decline in bone density) and possible under or overestimation of fracture risk by FRAX. Additional medical evaluation for secondary cause of low bone mineral density may be appropriate. FUTURE SCAN RECOMMENDATION: People with diagnosed cases of osteoporosis or at high risk for fracture should have regular bone mineral density tests. For patients eligible for Medicare, routine testing is allowed once every 2 years. The testing frequency can be increased to one year for patients who have rapidly progressing disease, those who are receiving or discontinuing medical therapy to restore bone mass, or have additional risk factors.
--- NOTE | ~2022-08-25 | MM_ITS ---
EXAMINATION: MM SCREENING DIGITAL BREAST TOMOSYNTHESIS, BILATERAL CLINICAL INFORMATION: Screening. Asymptomatic. The lifetime risk of breast cancer based on the Tyrer-Cuzick Model is 4%. COMPARISON: Mammography: 08/18/2021, 08/04/2020, 04/05/2019 TECHNIQUE: Digital breast tomosynthesis is performed in both the craniocaudal and mediolateral oblique views along with computer-aided detection (CAD). Synthesized 2D images are generated from the tomosynthesis. FINDINGS: The breasts are heterogeneously dense, which may obscure small masses (ACR BI-RADS breast composition Category c). There are no significant masses, abnormal calcifications, or other abnormalities. No architectural abnormality or developing density or significant change from prior studies. Dermal lesion again overlying right axilla. MM/MM tomosynthesis screening BI IMPRESSION: No mammographic evidence of malignancy. ASSESSMENT: BI-RADS 1: Negative RECOMMENDATION: Routine annual mammography screening. This patient's information was entered into a reminder system with a target due date for their next mammogram.
== END 2022-08-25 07:25 | disposition home or self-care (01) ==
LOC: HO.MAMMO 07:24
PROVIDERS: PCP Internal Medicine Medical Oncology; Visit Provider Internal Medicine Medical Oncology
DX: Z12.31 Encounter for screening mammogram for malignant neoplasm of breast (principal); Z13.820 Encounter for screening for osteoporosis; Z78.0 Asymptomatic menopausal state; M81.0 Age-related osteoporosis without current pathological fracture
CPT/HCPCS: 77063; 77067; 77080

== ENCOUNTER 2022-10-04 10:08 | Outpatient (REF) | payer MEDICARE, SELFPAY ==
[2022-10-04 13:42] LABS: MANUAL DIFF FLAG NO
[2022-10-04 13:48] LABS: Basophils Percent Auto 0.6 % (0-2); Eosinophils Absolute Auto 0.2 X10*3/uL (0.0-0.4); Eosinophils Percent Auto 3.1 % (0-4); Hematocrit 33.5 % (37.0-47.0); Hemoglobin 10.7 g/dl (12.0-16.0); Imm Gran Abs Auto 0.01 X10*3/uL (0.00-0.03); Imm Gran Pct Auto 0.2 % (0.0-0.4); Lymphocytes Absolute Auto 1.3 X10*3/uL (1.2-4.9); Lymphocytes Percent Auto 26.7 % (20-40); Mean Corpuscular HGB Conc 31.9 g/dl (31.0-35.0); Mean Corpuscular Hemoglobin 31.5 pg (27.0-33.0); Mean Corpuscular Volume 98.5 fL (80.0-98.0); Mean Platelet Volume 11.5 fL (9.4-12.3); Monocytes Absolute Auto 0.4 X10*3/uL (0.1-1.2); Monocytes Percent Auto 7.5 % (2-11); Neutrophils Percent Auto 61.9 % (45-73); Platelet Count 132 X10*3/uL (160-400); Red Cell Distribution Width 12.7 % (11.0-16.0); White Blood Count 4.8 X10*3/uL (4.8-10.8)
[2022-10-04 14:04] LABS: Alanine Aminotransferase 41 U/L (0-31); Alkaline Phosphatase 93 U/L (39-117); Anion Gap 15 (12-20); Aspartate Amino Transferase 42 U/L (5-31); Bilirubin Total 0.4 mg/dL (0.0-1.0); Blood Urea Nitrogen 56 mg/dL (9-16); Calcium 9.1 mg/dL (8.4-10.2); Carbon Dioxide 23 mmol/L (22-29); Chloride 110 mmol/L (96-108); Cholesterol 204 mg/dL; Estimated Glomerular Filt Rate 17; Glucose Random 87 mg/dL (60-115); HDL Cholesterol 87 mg/dL; LDL Cholesterol Calculated 110 mg/dl; Potassium 4.7 mmol/L (3.3-5.1); Sodium 143 mmol/L (135-145); Total Protein 5.9 g/dL (6.5-8.0); Triglycerides 39 mg/dL
== END 2022-10-04 10:09 | disposition home or self-care (01) ==
LOC: HO.10HDL 10:08
PROVIDERS: Visit Provider Internal Medicine Medical Oncology
DX: D61.818 Other pancytopenia (principal); N18.30 Chronic kidney disease, stage 3 unspecified; D70.9 Neutropenia, unspecified; E78.00 Pure hypercholesterolemia, unspecified
CPT/HCPCS: 36415; 80053; 80061; 85025

== ENCOUNTER 2023-01-10 08:11 | Outpatient (REF) | payer MEDICARE, SELFPAY ==
[2023-01-10 08:35] LABS: MANUAL DIFF FLAG NO
[2023-01-10 09:08] LABS: Basophils Percent Auto 0.5 % (0-2); Eosinophils Absolute Auto 0.1 X10*3/uL (0.0-0.4); Eosinophils Percent Auto 2.8 % (0-4); Hematocrit 31.7 % (37.0-47.0); Hemoglobin 9.9 g/dl (12.0-16.0); Imm Gran Abs Auto 0.01 X10*3/uL (0.00-0.03); Imm Gran Pct Auto 0.2 % (0.0-0.4); Lymphocytes Absolute Auto 1.1 X10*3/uL (1.2-4.9); Lymphocytes Percent Auto 24.3 % (20-40); Mean Corpuscular HGB Conc 31.2 g/dl (31.0-35.0); Mean Corpuscular Hemoglobin 31.3 pg (27.0-33.0); Mean Corpuscular Volume 100.3 fL (80.0-98.0); Mean Platelet Volume 11.3 fL (9.4-12.3); Monocytes Absolute Auto 0.4 X10*3/uL (0.1-1.2); Monocytes Percent Auto 9.3 % (2-11); Neutrophils Absolute Auto 2.7 x10*3/uL (2.0-8.3); Neutrophils Percent Auto 62.9 % (45-73); Platelet Count 106 X10*3/uL (160-400); Red Blood Count 3.16 X10*6/uL (4.20-5.50); Red Cell Distribution Width 11.9 % (11.0-16.0); White Blood Count 4.3 X10*3/uL (4.8-10.8)
[2023-01-10 09:45] LABS: Alanine Aminotransferase 35 U/L (0-31); Albumin Level 4.1 g/dL (3.5-5.0); Alkaline Phosphatase 76 U/L (39-117); Anion Gap 13 (12-20); Aspartate Amino Transferase 35 U/L (5-31); Bilirubin Total 0.3 mg/dL (0.0-1.0); Blood Urea Nitrogen 53 mg/dL (9-16); Calcium 9.7 mg/dL (8.4-10.2); Carbon Dioxide 23 mmol/L (22-29); Chloride 114 mmol/L (96-108); Cholesterol 193 mg/dL; Estimated Glomerular Filt Rate 18; Glucose Random 98 mg/dL (60-115); HDL Cholesterol 87 mg/dL; LDL Cholesterol Calculated 101 mg/dl; Potassium 4.7 mmol/L (3.3-5.1); Sodium 145 mmol/L (135-145); Total Protein 6.3 g/dL (6.5-8.0); Triglycerides 29 mg/dL
== END 2023-01-10 08:12 | disposition home or self-care (01) ==
LOC: HO.LAB 08:11
PROVIDERS: PCP Internal Medicine Medical Oncology; Visit Provider Internal Medicine Medical Oncology
DX: R63.6 Underweight (principal); D61.818 Other pancytopenia; D69.6 Thrombocytopenia, unspecified; E06.9 Thyroiditis, unspecified; E78.00 Pure hypercholesterolemia, unspecified
CPT/HCPCS: 36415; 80053; 80061; 85025

== ENCOUNTER 2023-03-03 08:40 | Outpatient (REF) | payer MEDICARE, SELFPAY ==
[2023-03-03 12:23] LABS: Anion Gap 13 (12-20); Blood Urea Nitrogen 64 mg/dL (9-16); Carbon Dioxide 24 mmol/L (22-29); Chloride 110 mmol/L (96-108); Estimated Glomerular Filt Rate 18; Potassium 5.1 mmol/L (3.3-5.1); Sodium 142 mmol/L (135-145)
== END 2023-03-03 08:41 | disposition home or self-care (01) ==
LOC: HO.10HDL 08:40
PROVIDERS: Visit Provider Internal Medicine Nephrology
DX: N18.32 Chronic kidney disease, stage 3b (principal); N26.1 Atrophy of kidney (terminal)
CPT/HCPCS: 36415; 80051; 82310; 82565; 84520

== ENCOUNTER 2023-03-30 07:54 | Outpatient (REF) | payer MEDICARE, SELFPAY ==
[2023-03-30 10:21] LABS: MANUAL DIFF FLAG NO
[2023-03-30 10:25] LABS: Basophils Percent Auto 0.2 % (0-2); Eosinophils Absolute Auto 0.1 X10*3/uL (0.0-0.4); Eosinophils Percent Auto 2.3 % (0-4); Hematocrit 32.6 % (37.0-47.0); Hemoglobin 10.4 g/dl (12.0-16.0); Imm Gran Abs Auto 0.01 X10*3/uL (0.00-0.03); Imm Gran Pct Auto 0.2 % (0.0-0.4); Lymphocytes Absolute Auto 0.6 X10*3/uL (1.2-4.9); Lymphocytes Percent Auto 12.3 % (20-40); Mean Corpuscular HGB Conc 31.9 g/dl (31.0-35.0); Mean Corpuscular Hemoglobin 31.6 pg (27.0-33.0); Mean Corpuscular Volume 99.1 fL (80.0-98.0); Mean Platelet Volume 11.3 fL (9.4-12.3); Monocytes Absolute Auto 0.5 X10*3/uL (0.1-1.2); Monocytes Percent Auto 8.8 % (2-11); Neutrophils Absolute Auto 3.9 x10*3/uL (2.0-8.3); Neutrophils Percent Auto 76.2 % (45-73); Platelet Count 108 X10*3/uL (160-400); Red Blood Count 3.29 X10*6/uL (4.20-5.50); Red Cell Distribution Width 12.1 % (11.0-16.0); White Blood Count 5.1 X10*3/uL (4.8-10.8)
[2023-03-30 10:43] LABS: Cholesterol 203 mg/dL (<200); HDL Cholesterol 85 mg/dL (>40); LDL Cholesterol Calculated 101 mg/dL (<100); Triglycerides 85 mg/dL (<150)
== END 2023-03-30 07:55 | disposition home or self-care (01) ==
LOC: HO.10HDL 07:54
PROVIDERS: Visit Provider Internal Medicine Medical Oncology
DX: E78.00 Pure hypercholesterolemia, unspecified (principal)
CPT/HCPCS: 36415; 80061; 85025

== ENCOUNTER 2023-07-26 09:19 | Outpatient (REF) | payer MEDICARE, SELFPAY ==
[2023-07-26 09:34] LABS: MANUAL DIFF FLAG NO
[2023-07-26 10:12] LABS: Basophils Percent Auto 0.4 % (0-2); Eosinophils Absolute Auto 0.1 X10*3/uL (0.0-0.4); Eosinophils Percent Auto 2.1 % (0-4); Hematocrit 33.5 % (37.0-47.0); Hemoglobin 10.5 g/dl (12.0-16.0); Imm Gran Abs Auto 0.01 X10*3/uL (0.00-0.03); Imm Gran Pct Auto 0.2 % (0.0-0.4); Lymphocytes Absolute Auto 1.1 X10*3/uL (1.2-4.9); Lymphocytes Percent Auto 22.5 % (20-40); Mean Corpuscular HGB Conc 31.3 g/dl (31.0-35.0); Mean Corpuscular Hemoglobin 31.6 pg (27.0-33.0); Mean Corpuscular Volume 100.9 fL (80.0-98.0); Mean Platelet Volume 11.1 fL (9.4-12.3); Monocytes Absolute Auto 0.4 X10*3/uL (0.1-1.2); Monocytes Percent Auto 8.4 % (2-11); Neutrophils Absolute Auto 3.2 x10*3/uL (2.0-8.3); Neutrophils Percent Auto 66.4 % (45-73); Platelet Count 113 X10*3/uL (160-400); Red Blood Count 3.32 X10*6/uL (4.20-5.50); Red Cell Distribution Width 12.2 % (11.0-16.0); White Blood Count 4.8 X10*3/uL (4.8-10.8)
[2023-07-26 10:54] LABS: Alanine Aminotransferase 55 U/L (0-31); Albumin Level 4.3 g/dL (3.5-5.0); Alkaline Phosphatase 82 U/L (39-117); Anion Gap 15 (12-20); Aspartate Amino Transferase 57 U/L (5-31); Bilirubin Total 0.3 mg/dL (0.0-1.0); Blood Urea Nitrogen 70 mg/dL (9-16); Calcium 9.3 mg/dL (8.4-10.2); Carbon Dioxide 26 mmol/L (22-29); Chloride 107 mmol/L (96-108); Cholesterol 231 mg/dL (<200); Estimated Glomerular Filt Rate 16; Glucose Fasting 91 mg/dL (60-99); HDL Cholesterol 93 mg/dL (>40); LDL Cholesterol Calculated 122 mg/dL (<100); Potassium 5.3 mmol/L (3.3-5.1); Sodium 143 mmol/L (135-145); Triglycerides 84 mg/dL (<150)
[2023-07-26 11:12] LABS: Vitamin D 25-OH Total 44.9 ng/mL (>30)
== END 2023-07-26 09:20 | disposition home or self-care (01) ==
LOC: HO.LAB 09:19
PROVIDERS: PCP Internal Medicine Medical Oncology; Visit Provider Internal Medicine Medical Oncology
DX: Z00.00 Encounter for general adult medical examination without abnormal findings (principal); D61.818 Other pancytopenia; D69.6 Thrombocytopenia, unspecified; D70.9 Neutropenia, unspecified; E78.00 Pure hypercholesterolemia, unspecified; M81.0 Age-related osteoporosis without current pathological fracture
CPT/HCPCS: 36415; 80053; 80061; 82306; 85025

== ENCOUNTER 2023-09-07 16:08 | Outpatient (REF) | payer MEDICARE, SELFPAY ==
--- NOTE | ~2023-09-07 | XR_ITS ---
EXAMINATION: XR FOOT, LEFT CLINICAL INFORMATION: Pain COMPARISON: Previous x-ray December 2021 TECHNIQUE: AP, lateral, and oblique views of the left foot. FINDINGS: The bones and soft tissues are normal. No fracture. Alignment is anatomic. Joint spaces are maintained. XR/XR foot LT min 3V IMPRESSION: Normal left foot.
== END 2023-09-07 16:09 | disposition home or self-care (01) ==
LOC: HO.XRAY 16:08
PROVIDERS: PCP Internal Medicine Medical Oncology; Visit Provider Internal Medicine Medical Oncology
DX: M79.672 Pain in left foot (principal)
CPT/HCPCS: 73630

== ENCOUNTER 2023-09-09 11:54 | Outpatient (REF) | payer MEDICARE, SELFPAY ==
[2023-09-09 12:22] LABS: MANUAL DIFF FLAG NO
[2023-09-09 13:34] LABS: Basophils Percent Auto 0.1 % (0-2); Eosinophils Absolute Auto 0.1 X10*3/uL (0.0-0.4); Eosinophils Percent Auto 1.2 % (0-4); Hematocrit 35.5 % (37.0-47.0); Hemoglobin 11.3 g/dl (12.0-16.0); Imm Gran Abs Auto 0.03 X10*3/uL (0.00-0.03); Imm Gran Pct Auto 0.4 % (0.0-0.4); Lymphocytes Percent Auto 13.7 % (20-40); Mean Corpuscular HGB Conc 31.8 g/dl (31.0-35.0); Mean Corpuscular Hemoglobin 31.5 pg (27.0-33.0); Mean Corpuscular Volume 98.9 fL (80.0-98.0); Mean Platelet Volume 11.3 fL (9.4-12.3); Monocytes Absolute Auto 0.4 X10*3/uL (0.1-1.2); Monocytes Percent Auto 5.8 % (2-11); Neutrophils Absolute Auto 5.7 x10*3/uL (2.0-8.3); Neutrophils Percent Auto 78.8 % (45-73); Platelet Count 161 X10*3/uL (160-400); Red Blood Count 3.59 X10*6/uL (4.20-5.50); Red Cell Distribution Width 12.2 % (11.0-16.0); White Blood Count 7.3 X10*3/uL (4.8-10.8)
[2023-09-09 14:08] LABS: Anion Gap 15 (12-20); Blood Urea Nitrogen 76 mg/dL (9-16); Calcium 9.7 mg/dL (8.4-10.2); Carbon Dioxide 24 mmol/L (22-29); Chloride 111 mmol/L (96-108); Estimated Glomerular Filt Rate 14; Iron 75 mcg/dL (30-160); Percent Iron Saturation 22 % (15-50); Phosphorus 4.3 mg/dL (2.7-4.5); Potassium 4.8 mmol/L (3.3-5.1); Sodium 145 mmol/L (135-145); Total Iron Binding Capacity 337 mcg/dL (228-428); Unsaturated Iron Binding 262 ug/dL
[2023-09-09 14:11] LABS: Parathyroid Hormone Intact 102.8 pg/mL (8.7-77.1)
[2023-09-09 14:12] LABS: Erythrocyte Sedimentation Rate 40 MM/HR (0-20)
[2023-09-09 14:26] LABS: Ferritin 66 ng/mL (10-250); Vitamin D 25-OH Total 43.8 ng/mL (>30)
== END 2023-09-09 11:55 | disposition home or self-care (01) ==
LOC: HO.LAB 11:54
PROVIDERS: Absent Provider Internal Medicine Nephrology; PCP Internal Medicine Medical Oncology; Visit Provider Podiatrist
DX: N18.4 Chronic kidney disease, stage 4 (severe) (principal); M10.172 Lead-induced gout, left ankle and foot
CPT/HCPCS: 36415; 80051; 82306; 82310; 82565; 82728; 83540; 83970; 84100; 84520; 84550; 85025; 85652

== ENCOUNTER 2023-09-16 09:27 | Outpatient (AMB) | payer MEDICARE, SELFPAY ==
--- NOTE | 2023-09-16 09:32 | HO.NEPHOV_ITS ---
HPI HPI Comments History of Present Illness Details I had the privilege of seeing Jacy in follow-up of her hypertension and chronic kidney disease. She has been having acute gout on her left foot. It was diagnosed in an urgent care center in [place] and was subsequently seen by legal director as well as her PCP. She was given couple of days of colchicine and also had taken 5 days of prednisone. She continues to have symptoms. Her serum uric acid is high. She denies any uremic symptoms. She has not taken any nonsteroidal anti-inflammatories. Her blood pressure control is suboptimal. She maintains good hydration. She denies chest pain, shortness of breath, paroxysmal nocturnal dyspnea, orthopnea or urinary symptoms. [facility] Medical History (Updated 09/16/23 @ 13:21 by Marquise Ashford MD) Degenerative arthritis of cervical spine Osteoarthritis Hypothyroidism Anemia Thrombocytopenia Chronic kidney disease DDD (degenerative disc disease) Rotator cuff arthropathy of right shoulder Neck pain Low back pain Single kidney Environmental allergies Asthma Surgical History Hx of nasal septoplasty History of tonsillectomy and adenoidectomy Hx of colonoscopy Hx of bilateral cataract extraction Social History Alcohol intake: current Alcohol intake frequency: holidays/special occasions only Vital Signs 09/16/23 09:34 Height 5 ft 4 in Weight 104 lb 2 oz BMI 17.9 BP 130/68 Blood Pressure Location Lt brachial Position Sitting Pulse 74 Pulse Source Pulse Oximeter Pulse Oximetry (%) 98 Oxygen Delivery Method Room Air Physical Exam Vital Signs: Last Vital Signs Pulse 74 09/16/23 09:34 BP 130/68 09/16/23 09:34 Pulse Ox 98 09/16/23 09:34 Oxygen Delivery Method Room Air 09/16/23 09:34 BMI result Body Mass Index 17.9 Const General: comfortable and no acute distress Orientation/consciousness: patient oriented x3 HEENT Head: Yes normocephalic Mouth: Normal oral and palatal mucosa present Eyes EOM: EOMs intact bilaterally Neck Neck: Yes supple Resp Auscultation: clear to auscultation bilaterally Cardio Jugular venous distension: no JVD Rate: regular rate GI Palpation (GI): Soft to palpation Auscultation: normal bowel sounds General: Yes no CVA tenderness Back/Spine/Pelvis Back: no CVA tenderness Skin General skin exam: no rashes or lesions noted Neuro General: patient oriented x3 and moves all extremities Extrem Other: Dorsum of left foot swollen and erythematous with tenderness at MTP joints Assessment & Plan Assessment & Plan (1) CKD (chronic kidney disease) stage 4, GFR 15-29 ml/min: Code(s): N18.4 - Chronic kidney disease, stage 4 (severe) (2) Gout: Code(s): M10.9 - Gout, unspecified Qualifiers: Gout site: foot Gout etiology: due to renal impairment Chronicity: acute Laterality: left Qualified Code(s): M10.372 - Gout due to renal impairment, left ankle and foot (3) Hypertension: Code(s): I10 - Essential (primary) hypertension Qualifiers: Hypertension type: secondary to other renal disorders Qualified Code(s): I15.1 - Hypertension secondary to other renal disorders Plan Jacy has left atrophic kidney. She has progressive renal dysfunction or many years. Her serum creatinine is fairly stable. She does not have any uremic symptoms. Her blood pressure is not at goal. I increased her amlodipine to 7.5 mg daily. I started her on prednisone 20 mg for 5 days followed by 10 mg for 5 days. Once her acute exacerbation of gout his settled I have ordered her to take allopurinol 100 mg daily. She maintains good hydration. She avoids nonsteroidal anti-inflammatories. I plan to do a 24 hour urine collection for creatinine clearance. I plan to discuss with her regarding options of renal replacement therapy as well as transplantation if her serum creatinine continues to rise. All her questions during this visit were answered. Follow-up appointment given. Orders: Orders Electrolytes Today M10.9 - Gout, unspecified, N18.4 - Chronic kidney disease, stage 4 (severe) Creatinine Today M10.9 - Gout, unspecified, N18.4 - Chronic kidney disease, stage 4 (severe) Blood Urea Nitrogen Today M10.9 - Gout, unspecified, N18.4 - Chronic kidney disease, stage 4 (severe) Medications: New amlodipine 7.5 mg (1.5 x 5 mg) PO DAILY 30 days 45 tabs 3RF allopurinol 100 mg PO DAILY 90 tabs 3RF prednisone 20 mg daily for 5 days followed by 10 mg daily for 5 days 10 mg PO DIRECTED 15 tabs 0RF Coding Level of Care Code Est Pt Level 4 (26420) Diagnoses CKD (chronic kidney disease) stage 4, GFR 15-29 ml/min N18.4 Acute gout due to renal impairment involving left foot M10.372 Gout site: foot Gout etiology: due to renal impairment Chronicity: acute Laterality: left Hypertension secondary to other renal disorders I15.1 Hypertension type: secondary to other renal disorders Results Reviewed Nephrology Results: Hgb 11.3 g/dl (12.0-16.0) L 09/09/23 WBC 7.3 X10*3/uL (4.8-10.8) 09/09/23 Plt Count 161 X10*3/uL (160-400) 09/09/23 Sodium 145 mmol/L (135-145) 09/09/23 Potassium 4.8 mmol/L (3.3-5.1) 09/09/23 Chloride 111 mmol/L (96-108) H 09/09/23 Carbon Dioxide 24 mmol/L (22-29) 09/09/23 BUN 76 mg/dL (9-16) H 09/09/23 Creatinine 3.26 mg/dL (0.5-1.4) H 09/09/23 Calcium 9.7 mg/dL (8.4-10.2) 09/09/23 Phosphorus 4.3 mg/dL (2.7-4.5) 09/09/23 PTH Intact 102.8 pg/mL (8.7-77.1) H 09/09/23
[2023-09-16 09:34] VITALS: BP 130/68; PULSE 74; O2SAT 98; BMI 17.9
== END 2023-09-16 10:03 | disposition home or self-care (01) ==
PROVIDERS: PCP Internal Medicine Medical Oncology; Visit Provider Internal Medicine Nephrology
DX: N18.4 Chronic kidney disease, stage 4 (severe) (principal); M10.372 Gout due to renal impairment, left ankle and foot; I15.1 Hypertension secondary to other renal disorders
CPT/HCPCS: 99214

== ENCOUNTER → 2023-09-16 09:27 | Outpatient (BNVA) | payer MEDICARE, SELFPAY | PROVIDERS: PCP Internal Medicine Medical Oncology; Visit Provider Internal Medicine Nephrology | DX: N18.4 Chronic kidney disease, stage 4 (severe) (principal); I15.1 Hypertension secondary to other renal disorders; M10.372 Gout due to renal impairment, left ankle and foot | CPT/HCPCS: 99212 ==

== ENCOUNTER 2023-09-19 08:28 | Outpatient (REF) | payer MEDICARE, SELFPAY | END 2023-09-19 08:29 | disposition home or self-care (01) | LOC: HO.MAMMO 08:28 | PROVIDERS: PCP Internal Medicine Medical Oncology; Visit Provider Internal Medicine Medical Oncology | DX: Z12.31 Encounter for screening mammogram for malignant neoplasm of breast (principal) | CPT/HCPCS: 77063; 77067 ==

== ENCOUNTER → 2023-09-19 08:30 | Outpatient (BNV) | payer MEDICARE, SELFPAY | PROVIDERS: PCP Internal Medicine Medical Oncology; Visit Provider Radiology Diagnostic Radiology | DX: Z12.31 Encounter for screening mammogram for malignant neoplasm of breast (principal) | CPT/HCPCS: 77063; 77067 ==

== ENCOUNTER 2023-11-10 09:09 | Outpatient (REF) | payer MEDICARE, SELFPAY ==
[2023-11-10 10:52] LABS: MANUAL DIFF FLAG NO
[2023-11-10 11:13] LABS: Basophils Percent Auto 0.7 % (0-2); Eosinophils Absolute Auto 0.1 X10*3/uL (0.0-0.4); Eosinophils Percent Auto 1.5 % (0-4); Hematocrit 28.5 % (37.0-47.0); Hemoglobin 9.3 g/dl (12.0-16.0); Imm Gran Abs Auto 0.01 X10*3/uL (0.00-0.03); Imm Gran Pct Auto 0.2 % (0.0-0.4); Lymphocytes Absolute Auto 0.7 X10*3/uL (1.2-4.9); Lymphocytes Percent Auto 16.4 % (20-40); Mean Corpuscular HGB Conc 32.6 g/dl (31.0-35.0); Mean Corpuscular Hemoglobin 32.2 pg (27.0-33.0); Mean Corpuscular Volume 98.6 fL (80.0-98.0); Mean Platelet Volume 10.4 fL (9.4-12.3); Monocytes Absolute Auto 0.4 X10*3/uL (0.1-1.2); Monocytes Percent Auto 9.1 % (2-11); Neutrophils Absolute Auto 3.3 x10*3/uL (2.0-8.3); Neutrophils Percent Auto 72.1 % (45-73); Platelet Count 138 X10*3/uL (160-400); Red Blood Count 2.89 X10*6/uL (4.20-5.50); Red Cell Distribution Width 12.9 % (11.0-16.0); White Blood Count 4.5 X10*3/uL (4.8-10.8)
[2023-11-10 11:27] LABS: Anion Gap 13 (12-20); Blood Urea Nitrogen 53 mg/dL (9-16); Carbon Dioxide 24 mmol/L (22-29); Chloride 104 mmol/L (96-108); Estimated Glomerular Filt Rate 17; Iron 60 mcg/dL (30-160); Percent Iron Saturation 18 % (15-50); Phosphorus 4.6 mg/dL (2.7-4.5); Potassium 5.3 mmol/L (3.3-5.1); Sodium 136 mmol/L (135-145); Total Iron Binding Capacity 335 mcg/dL (228-428); Unsaturated Iron Binding 275 ug/dL; Vitamin D 25-OH Total 45.8 ng/mL (>30)
== END 2023-11-10 09:10 | disposition home or self-care (01) ==
LOC: HO.10HDL 09:09
PROVIDERS: Visit Provider Internal Medicine Nephrology
DX: N18.4 Chronic kidney disease, stage 4 (severe) (principal)
CPT/HCPCS: 36415; 80051; 82306; 82565; 83540; 84100; 84520; 85025

== ENCOUNTER 2023-11-16 12:12 | Outpatient (AMB) | payer MEDICARE, SELFPAY ==
--- NOTE | 2023-11-16 12:13 | HO.NEPHOV ---
Vital Signs 11/16/23 12:14 Height 5 ft 4 in Weight 105 lb 2 oz BMI 18.0 BP 144/50 H Blood Pressure Location Rt brachial Position Sitting Pulse 93 Pulse Source Pulse Oximeter Pulse Oximetry (%) 98 Oxygen Delivery Method Room Air Intake Visit Reasons: 2mon follow up/ Confirmed Infusion Nurse Required: No Accompanied by: Self / Same As Patient Allergies No Known Allergies Allergy (Verified 11/16/23 12:16) HPI Comments Details: I had the privilege of seeing Jacy in follow-up of her hypertension and chronic kidney disease. She has been having flare up of gout on her left foot. She continues to have symptoms. Her serum uric acid is high and is on Allopurinol . She denies any uremic symptoms. She has not taken any nonsteroidal anti-inflammatories. Her blood pressure control is suboptimal. She maintains good hydration. She denies chest pain, shortness of breath, paroxysmal nocturnal dyspnea, orthopnea or urinary symptoms. [facility] Medical History (Updated 11/16/23 @ 12:30 by Marquise Ashford MD) Degenerative arthritis of cervical spine Osteoarthritis Hypothyroidism Anemia Thrombocytopenia Chronic kidney disease DDD (degenerative disc disease) Rotator cuff arthropathy of right shoulder Neck pain Low back pain Single kidney Environmental allergies Asthma Surgical History Hx of nasal septoplasty History of tonsillectomy and adenoidectomy Hx of colonoscopy Hx of bilateral cataract extraction Social History Alcohol intake: current Alcohol intake frequency: holidays/special occasions only Physical Exam Vital Signs: Last Vital Signs Pulse 93 11/16/23 12:14 BP 144/50 H 11/16/23 12:14 Pulse Ox 98 11/16/23 12:14 Oxygen Delivery Method Room Air 11/16/23 12:14 BMI result Body Mass Index 18.0 Const General: comfortable and no acute distress Orientation/consciousness: patient oriented x3 HEENT Head: Yes normocephalic Mouth: Normal oral and palatal mucosa present Eyes EOM: EOMs intact bilaterally Neck Neck: Yes supple Resp Auscultation: clear to auscultation bilaterally Cardio Jugular venous distension: no JVD Rate: regular rate GI Palpation (GI): Soft to palpation Auscultation: normal bowel sounds General: Yes no CVA tenderness Back/Spine/Pelvis Back: no CVA tenderness Skin General skin exam: no rashes or lesions noted Neuro General: patient oriented x3 and moves all extremities Extrem General: Yes no pedal edema Results Reviewed Nephrology Results: Hgb 9.3 g/dl (12.0-16.0) L 11/10/23 WBC 4.5 X10*3/uL (4.8-10.8) L 11/10/23 Plt Count 138 X10*3/uL (160-400) L 11/10/23 Sodium 136 mmol/L (135-145) 11/10/23 Potassium 5.3 mmol/L (3.3-5.1) H 11/10/23 Chloride 104 mmol/L (96-108) 11/10/23 Carbon Dioxide 24 mmol/L (22-29) 11/10/23 BUN 53 mg/dL (9-16) H 11/10/23 Creatinine 2.77 mg/dL (0.5-1.4) H 11/10/23 Calcium 9.7 mg/dL (8.4-10.2) 09/09/23 Phosphorus 4.6 mg/dL (2.7-4.5) H 11/10/23 PTH Intact 102.8 pg/mL (8.7-77.1) H 09/09/23 Assessment & Plan Assessment & Plan (1) CKD (chronic kidney disease) stage 4, GFR 15-29 ml/min: Code(s): N18.4 - Chronic kidney disease, stage 4 (severe) Category: Medical (2) Gout: Code(s): M10.9 - Gout, unspecified Category: Medical Qualifiers: Gout site: foot Gout etiology: due to renal impairment Chronicity: acute Laterality: left Qualified Code(s): M10.372 - Gout due to renal impairment, left ankle and foot (3) Hypertension: Code(s): I10 - Essential (primary) hypertension Category: Medical Qualifiers: Hypertension type: secondary to other renal disorders Qualified Code(s): I15.1 - Hypertension secondary to other renal disorders (4) Secondary hyperparathyroidism (of renal origin): Code(s): N25.81 - Secondary hyperparathyroidism of renal origin Category: Medical Plan Jacy has left atrophic kidney. She has progressive renal dysfunction or many years. Her serum creatinine is fairly stable. She does not have any uremic symptoms. Her blood pressure is not at goal. I increased her amlodipine to 10 mg daily. I have increased her allopurinol to 200 mg daily. She maintains good hydration. She avoids nonsteroidal anti-inflammatories. I plan to do a 24 hour urine collection for creatinine clearance with time. I plan to discuss with her regarding options of renal replacement therapy as well as transplantation if her serum creatinine continues to rise. All her questions during this visit were answered. Follow-up appointment given. Orders: Orders Creatinine Today I15.1 - Hypertension secondary to other renal disorders, M10.372 - Gout due to renal impairment, left ankle and foot, N18.4 - Chronic kidney disease, stage 4 (severe), N25.81 - Secondary hyperparathyroidism of renal origin Blood Urea Nitrogen Today I15.1 - Hypertension secondary to other renal disorders, M10.372 - Gout due to renal impairment, left ankle and foot, N18.4 - Chronic kidney disease, stage 4 (severe), N25.81 - Secondary hyperparathyroidism of renal origin Electrolytes Today I15.1 - Hypertension secondary to other renal disorders, M10.372 - Gout due to renal impairment, left ankle and foot, N18.4 - Chronic kidney disease, stage 4 (severe), N25.81 - Secondary hyperparathyroidism of renal origin Uric Acid Today I15.1 - Hypertension secondary to other renal disorders, M10.372 - Gout due to renal impairment, left ankle and foot, N18.4 - Chronic kidney disease, stage 4 (severe), N25.81 - Secondary hyperparathyroidism of renal origin Coding Level of Care Code Est Pt Level 4 (51612) Diagnoses CKD (chronic kidney disease) stage 4, GFR 15-29 ml/min N18.4 Acute gout due to renal impairment involving left foot M10.372 Gout site: foot Gout etiology: due to renal impairment Chronicity: acute Laterality: left Hypertension secondary to other renal disorders I15.1 Hypertension type: secondary to other renal disorders Secondary hyperparathyroidism (of renal origin) N25.81
[2023-11-16 12:14] VITALS: BP 144/50; PULSE 93; O2SAT 98; BMI 18.0
== END 2023-11-16 12:34 | disposition home or self-care (01) ==
PROVIDERS: PCP Internal Medicine Medical Oncology; Visit Provider Internal Medicine Nephrology
DX: N18.4 Chronic kidney disease, stage 4 (severe) (principal); M10.372 Gout due to renal impairment, left ankle and foot; I15.1 Hypertension secondary to other renal disorders; N25.81 Secondary hyperparathyroidism of renal origin
CPT/HCPCS: 99214

== ENCOUNTER → 2023-11-16 12:12 | Outpatient (BNVA) | payer MEDICARE, SELFPAY | PROVIDERS: PCP Internal Medicine Medical Oncology; Visit Provider Internal Medicine Nephrology | DX: I15.1 Hypertension secondary to other renal disorders (principal); N18.4 Chronic kidney disease, stage 4 (severe); N25.81 Secondary hyperparathyroidism of renal origin; M10.372 Gout due to renal impairment, left ankle and foot | CPT/HCPCS: 99212 ==

== ENCOUNTER 2024-01-31 10:42 | Outpatient (REF) | payer MEDICARE, SELFPAY ==
[2024-01-31 11:07] LABS: MANUAL DIFF FLAG NO
[2024-01-31 11:08] LABS: Basophils Percent Auto 0.4 % (0-2); Eosinophils Absolute Auto 0.1 X10*3/uL (0.0-0.4); Eosinophils Percent Auto 1.1 % (0-4); Hematocrit 30.6 % (37.0-47.0); Hemoglobin 9.6 g/dl (12.0-16.0); Imm Gran Abs Auto 0.02 X10*3/uL (0.00-0.03); Imm Gran Pct Auto 0.4 % (0.0-0.4); Lymphocytes Absolute Auto 0.9 X10*3/uL (1.2-4.9); Lymphocytes Percent Auto 20.1 % (20-40); Mean Corpuscular HGB Conc 31.4 g/dl (31.0-35.0); Mean Corpuscular Hemoglobin 31.8 pg (27.0-33.0); Mean Corpuscular Volume 101.3 fL (80.0-98.0); Monocytes Absolute Auto 0.4 X10*3/uL (0.1-1.2); Monocytes Percent Auto 8.6 % (2-11); Neutrophils Absolute Auto 3.2 x10*3/uL (2.0-8.3); Neutrophils Percent Auto 69.4 % (45-73); Platelet Count 114 X10*3/uL (160-400); Red Blood Count 3.02 X10*6/uL (4.20-5.50); Red Cell Distribution Width 13.2 % (11.0-16.0); White Blood Count 4.7 X10*3/uL (4.8-10.8)
[2024-01-31 12:03] LABS: Alanine Aminotransferase 28 U/L (0-31); Albumin Level 4.4 g/dL (3.5-5.0); Alkaline Phosphatase 85 U/L (39-117); Anion Gap 16 (12-20); Aspartate Amino Transferase 33 U/L (5-31); Bilirubin Total 0.2 mg/dL (0.0-1.0); Blood Urea Nitrogen 66 mg/dL (9-16); Calcium 9.3 mg/dL (8.4-10.2); Carbon Dioxide 23 mmol/L (22-29); Chloride 108 mmol/L (96-108); Estimated Glomerular Filt Rate 14; Glucose Random 88 mg/dL (60-115); Potassium 4.8 mmol/L (3.3-5.1); Sodium 142 mmol/L (135-145); Total Protein 6.9 g/dL (6.5-8.0)
== END 2024-01-31 10:43 | disposition home or self-care (01) ==
LOC: HO.10HDL 10:42
PROVIDERS: Visit Provider Internal Medicine Medical Oncology
DX: E78.5 Hyperlipidemia, unspecified (principal); R63.6 Underweight
CPT/HCPCS: 36415; 80053; 85025

== ENCOUNTER 2024-02-22 10:03 | Outpatient (REF) | payer MEDICARE, SELFPAY ==
[2024-02-22 11:27] LABS: Anion Gap 13 (12-20); Blood Urea Nitrogen 74 mg/dL (9-16); Carbon Dioxide 23 mmol/L (22-29); Chloride 110 mmol/L (96-108); Estimated Glomerular Filt Rate 13; Potassium 4.8 mmol/L (3.3-5.1); Sodium 141 mmol/L (135-145); Uric Acid 3.9 mg/dL (2.4-5.7)
== END 2024-02-22 10:04 | disposition home or self-care (01) ==
LOC: HO.10HDL 10:03
PROVIDERS: Visit Provider Internal Medicine Nephrology
DX: N18.4 Chronic kidney disease, stage 4 (severe) (principal); M10.372 Gout due to renal impairment, left ankle and foot; N25.81 Secondary hyperparathyroidism of renal origin; I15.1 Hypertension secondary to other renal disorders
CPT/HCPCS: 36415; 80051; 82565; 84520; 84550

== ENCOUNTER 2024-02-29 15:25 | Outpatient (AMB) | payer MEDICARE, SELFPAY ==
[2024-02-29 16:06] VITALS: BP 130/60; PULSE 51; O2SAT 100; BMI 18.4
--- NOTE | 2024-02-29 16:06 | HO.NEPHOV_ITS ---
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 She has not had any flare up of gout on her left foot. She is tolerating Allopurinol . She denies any uremic symptoms. She has not taken any nonsteroidal anti-inflammatories. Her blood pressure control is optimal. Her Amlodipine has been cut back due to edema. She maintains good hydration. She denies chest pain, shortness of breath, paroxysmal nocturnal dyspnea, orthopnea or urinary symptoms. She is contemplating moving to [place] next year. [facility] Medical History (Updated 11/16/23 @ 12:30 by Marquise Ashford MD) Degenerative arthritis of cervical spine Osteoarthritis Hypothyroidism Anemia Thrombocytopenia Chronic kidney disease DDD (degenerative disc disease) Rotator cuff arthropathy of right shoulder Neck pain Low back pain Single kidney Environmental allergies Asthma Surgical History Hx of nasal septoplasty History of tonsillectomy and adenoidectomy Hx of colonoscopy Hx of bilateral cataract extraction Social History Alcohol intake: current Alcohol intake frequency: holidays/special occasions only Review of Systems Const All systems reviewed & are unremarkable except as noted in HPI and below Physical Exam Vital Signs: Last Vital Signs Pulse 51 02/29/24 16:06 BP 194/50 H 02/29/24 16:06 Pulse Ox 100 02/29/24 16:06 Oxygen Delivery Method Room Air 02/29/24 16:06 BMI result Body Mass Index 18.4 Const General: comfortable and no acute distress Orientation/consciousness: patient oriented x3 HEENT Head: Yes normocephalic Mouth: Normal oral and palatal mucosa present Eyes EOM: EOMs intact bilaterally Neck Neck: Yes supple Resp Auscultation: clear to auscultation bilaterally Cardio Jugular venous distension: no JVD Rate: regular rate GI Palpation (GI): Soft to palpation Auscultation: normal bowel sounds General: Yes no CVA tenderness Back/Spine/Pelvis Back: no CVA tenderness Skin General skin exam: no rashes or lesions noted Neuro General: patient oriented x3 and moves all extremities Extrem General: Yes no pedal edema Results Reviewed Nephrology Results: Hgb 9.6 g/dl (12.0-16.0) L 01/31/24 WBC 4.7 X10*3/uL (4.8-10.8) L 01/31/24 Plt Count 114 X10*3/uL (160-400) L 01/31/24 Sodium 141 mmol/L (135-145) 02/22/24 Potassium 4.8 mmol/L (3.3-5.1) 02/22/24 Chloride 110 mmol/L (96-108) H 02/22/24 Carbon Dioxide 23 mmol/L (22-29) 02/22/24 BUN 74 mg/dL (9-16) H 02/22/24 Creatinine 3.59 mg/dL (0.5-1.4) H 02/22/24 Calcium 9.3 mg/dL (8.4-10.2) 01/31/24 Phosphorus 4.6 mg/dL (2.7-4.5) H 11/10/23 PTH Intact 102.8 pg/mL (8.7-77.1) H 09/09/23 Assessment & Plan Assessment & Plan (1) CKD (chronic kidney disease) stage 4, GFR 15-29 ml/min: Code(s): N18.4 - Chronic kidney disease, stage 4 (severe) Category: Medical (2) Gout: Code(s): M10.9 - Gout, unspecified Category: Medical Qualifiers: Chronicity: acute Gout etiology: due to renal impairment Gout site: foot Laterality: left Qualified Code(s): M10.372 - Gout due to renal impairment, left ankle and foot (3) Hypertension: Code(s): I10 - Essential (primary) hypertension Category: Medical Qualifiers: Hypertension type: secondary to other renal disorders Qualified Code(s): I15.1 - Hypertension secondary to other renal disorders (4) Secondary hyperparathyroidism (of renal origin): Code(s): N25.81 - Secondary hyperparathyroidism of renal origin Category: Medical Plan Jacy has left atrophic kidney. She has progressive renal dysfunction or many years. Her serum creatinine is fairly stable. She does not have any uremic symptoms. Her blood pressure is at goal. She can continue current dose of amlodipine & allopurinol daily. She maintains good hydration. She avoids nonsteroidal anti-inflammatories. I ordered creatinine clearance. I discussed with her regarding options of renal replacement therapy as well as transplantation if her serum creatinine continues to rise. All her questions during this visit were answered. Follow-up appointment given Orders: Orders Creatinine Clearance Urine 24U Today I15.1 - Hypertension secondary to other renal disorders, M10.372 - Gout due to renal impairment, left ankle and foot, N18.4 - Chronic kidney disease, stage 4 (severe), N25.81 - Secondary hyperparathyroidism of renal origin Creatinine Today I15.1 - Hypertension secondary to other renal disorders, M10.372 - Gout due to renal impairment, left ankle and foot, N18.4 - Chronic kidney disease, stage 4 (severe), N25.81 - Secondary hyperparathyroidism of renal origin Blood Urea Nitrogen Today I15.1 - Hypertension secondary to other renal disorders, M10.372 - Gout due to renal impairment, left ankle and foot, N18.4 - Chronic kidney disease, stage 4 (severe), N25.81 - Secondary hyperparathyroidism of renal origin Electrolytes Today I15.1 - Hypertension secondary to other renal disorders, M10.372 - Gout due to renal impairment, left ankle and foot, N18.4 - Chronic kidney disease, stage 4 (severe), N25.81 - Secondary hyperparathyroidism of renal origin Coding Level of Care Code Est Pt Level 4 (80837) Diagnoses CKD (chronic kidney disease) stage 4, GFR 15-29 ml/min N18.4 Acute gout due to renal impairment involving left foot M10.372 Chronicity: acute Gout etiology: due to renal impairment Gout site: foot Laterality: left Hypertension secondary to other renal disorders I15.1 Hypertension type: secondary to other renal disorders Secondary hyperparathyroidism (of renal origin) N25.81
== END 2024-02-29 16:49 | disposition home or self-care (01) ==
PROVIDERS: PCP Internal Medicine Medical Oncology; Visit Provider Internal Medicine Nephrology
DX: N18.4 Chronic kidney disease, stage 4 (severe) (principal); M10.372 Gout due to renal impairment, left ankle and foot; I15.1 Hypertension secondary to other renal disorders; N25.81 Secondary hyperparathyroidism of renal origin
CPT/HCPCS: 99214

== ENCOUNTER → 2024-02-29 15:25 | Outpatient (BNVA) | payer MEDICARE, SELFPAY | PROVIDERS: PCP Internal Medicine Medical Oncology; Visit Provider Internal Medicine Nephrology | DX: N18.4 Chronic kidney disease, stage 4 (severe) (principal); M10.372 Gout due to renal impairment, left ankle and foot; I15.1 Hypertension secondary to other renal disorders; N25.81 Secondary hyperparathyroidism of renal origin | CPT/HCPCS: 99212 ==

== ENCOUNTER 2024-03-02 12:45 | Outpatient (REF) | payer MEDICARE, SELFPAY ==
[2024-03-02 14:37] LABS: Anion Gap 15 (12-20); Blood Urea Nitrogen 63 mg/dL (9-16); Carbon Dioxide 21 mmol/L (22-29); Chloride 110 mmol/L (96-108); Estimated Glomerular Filt Rate 15; Potassium 5.5 mmol/L (3.3-5.1); Sodium 140 mmol/L (135-145)
[2024-03-02 14:55] LABS: Creatinine, mg/dL 40.82
[2024-03-02 16:30] LABS: Creatinine, 24Hr Urine 0.8 G/Day (1.0-2.0); Total Volume 24 Hour Urine 1975 mL
[2024-03-02 16:31] LABS: Creatinine (CrCl) 3.04 mg/dL (0.5-1.4); Creatinine Clearance 18.4 mL/min (85-125)
== END 2024-03-02 12:46 | disposition home or self-care (01) ==
LOC: HO.LAB 12:45
PROVIDERS: PCP Internal Medicine Medical Oncology; Visit Provider Internal Medicine Nephrology
DX: N18.4 Chronic kidney disease, stage 4 (severe) (principal); M10.372 Gout due to renal impairment, left ankle and foot; I15.1 Hypertension secondary to other renal disorders; N25.81 Secondary hyperparathyroidism of renal origin
CPT/HCPCS: 36415; 80051; 82565; 82575; 84520

== ENCOUNTER 2024-04-13 07:23 | Outpatient (REF) | payer MEDICARE, SELFPAY ==
[2024-04-13 11:08] LABS: MANUAL DIFF FLAG NO
[2024-04-13 11:14] LABS: Basophils Percent Auto 0.5 % (0-2); Eosinophils Absolute Auto 0.2 X10*3/uL (0.0-0.4); Eosinophils Percent Auto 3.5 % (0-4); Hemoglobin 9.6 g/dl (12.0-16.0); Imm Gran Abs Auto 0.01 X10*3/uL (0.00-0.03); Imm Gran Pct Auto 0.2 % (0.0-0.4); Lymphocytes Percent Auto 24.5 % (20-40); Mean Corpuscular Hemoglobin 32.1 pg (27.0-33.0); Mean Corpuscular Volume 100.3 fL (80.0-98.0); Mean Platelet Volume 11.1 fL (9.4-12.3); Monocytes Absolute Auto 0.4 X10*3/uL (0.1-1.2); Neutrophils Absolute Auto 2.6 x10*3/uL (2.0-8.3); Neutrophils Percent Auto 62.3 % (45-73); Platelet Count 139 X10*3/uL (160-400); Red Blood Count 2.99 X10*6/uL (4.20-5.50); Red Cell Distribution Width 13.6 % (11.0-16.0); White Blood Count 4.2 X10*3/uL (4.8-10.8)
[2024-04-13 12:01] LABS: Alanine Aminotransferase 37 U/L (0-31); Albumin Level 4.3 g/dL (3.5-5.0); Alkaline Phosphatase 111 U/L (39-117); Anion Gap 13 (12-20); Aspartate Amino Transferase 44 U/L (5-31); Bilirubin Total 0.3 mg/dL (0.0-1.0); Blood Urea Nitrogen 84 mg/dL (9-16); Calcium 9.8 mg/dL (8.4-10.2); Carbon Dioxide 26 mmol/L (22-29); Chloride 109 mmol/L (96-108); Cholesterol 212 mg/dL (<200); Estimated Glomerular Filt Rate 15; Glucose Fasting 98 mg/dL (60-99); HDL Cholesterol 95 mg/dL (>40); LDL Cholesterol Calculated 98 mg/dL (<100); Potassium 4.8 mmol/L (3.3-5.1); Sodium 143 mmol/L (135-145); Total Protein 6.9 g/dL (6.5-8.0); Triglycerides 95 mg/dL (<150)
== END 2024-04-13 07:24 | disposition home or self-care (01) ==
LOC: HO.10HDL 07:23
PROVIDERS: Visit Provider Internal Medicine Medical Oncology
DX: E78.5 Hyperlipidemia, unspecified (principal); R63.6 Underweight
CPT/HCPCS: 36415; 80053; 80061; 85025

== ENCOUNTER 2024-05-28 08:37 | Outpatient (REF) | payer MEDICARE, SELFPAY ==
[2024-05-28 10:01] LABS: Anion Gap 11 (12-20); Blood Urea Nitrogen 80 mg/dL (9-16); Carbon Dioxide 29 mmol/L (22-29); Chloride 107 mmol/L (96-108); Estimated Glomerular Filt Rate 13; Potassium 5.1 mmol/L (3.3-5.1); Sodium 142 mmol/L (135-145)
== END 2024-05-28 08:38 | disposition home or self-care (01) ==
LOC: HO.LAB 08:37
PROVIDERS: PCP Internal Medicine Medical Oncology; Visit Provider Internal Medicine Nephrology
DX: N18.4 Chronic kidney disease, stage 4 (severe) (principal); M10.9 Gout, unspecified
CPT/HCPCS: 36415; 80051; 82565; 84520

== ENCOUNTER 2024-06-01 10:07 | Outpatient (AMB) | payer MEDICARE, SELFPAY ==
--- NOTE | 2024-06-01 10:26 | HO.NEPHOV_ITS ---
Vital Signs 06/01/24 10:28 Height 5 ft 4 in Weight 109 lb 4 oz BMI 18.8 BP 140/50 H Blood Pressure Location Rt brachial Position Sitting Pulse 75 Pulse Source Pulse Oximeter Pulse Oximetry (%) 100 Oxygen Delivery Method Room Air Intake Visit Reasons: 3 mon follow up-[facility] Objects Conservator Required: No Accompanied by: Self / Same As Patient Allergies No Known Allergies Allergy (Verified 06/01/24 10:29) HPI Comments Details: Jacy was seen in follow-up of her hypertension and advanced chronic kidney disease. She has not had any flare up of gout on her left foot. She is tolerating Allopurinol . She denies any uremic symptoms. She has not taken any nonsteroidal anti-inflammatories. Her blood pressure control is optimal. Her Amlodipine has been cut back due to edema. She maintains good hydration. She denies chest pain, shortness of breath, paroxysmal nocturnal dyspnea, orthopnea or urinary symptoms. Her last 24 hour urine collection showed a GFR close to 18 mls/minute [facility] Medical History (Updated 06/02/24 @ 15:41 by Marquise Ashford MD) Degenerative arthritis of cervical spine Osteoarthritis Hypothyroidism Anemia Thrombocytopenia Chronic kidney disease DDD (degenerative disc disease) Rotator cuff arthropathy of right shoulder Neck pain Low back pain Single kidney Environmental allergies Asthma Surgical History Hx of nasal septoplasty History of tonsillectomy and adenoidectomy Hx of colonoscopy Hx of bilateral cataract extraction Social History Alcohol intake: current Alcohol intake frequency: holidays/special occasions only Review of Systems Const All systems reviewed & are unremarkable except as noted in HPI and below Physical Exam Vital Signs: Last Vital Signs Pulse 75 06/01/24 10:28 BP 172/50 H 06/01/24 10:28 Pulse Ox 100 06/01/24 10:28 Oxygen Delivery Method Room Air 06/01/24 10:28 BMI result Body Mass Index 18.8 Const General: comfortable and no acute distress Orientation/consciousness: patient oriented x3 HEENT Head: Yes normocephalic Mouth: Normal oral and palatal mucosa present Eyes EOM: EOMs intact bilaterally Neck Neck: Yes supple Resp Auscultation: clear to auscultation bilaterally Cardio Jugular venous distension: no JVD Rate: regular rate GI Palpation (GI): Soft to palpation Auscultation: normal bowel sounds General: Yes no CVA tenderness Back/Spine/Pelvis Back: no CVA tenderness Skin General skin exam: no rashes or lesions noted Neuro General: patient oriented x3 and moves all extremities Extrem General: Yes no pedal edema Results Reviewed Nephrology Results: Hgb 9.6 g/dl (12.0-16.0) L 04/13/24 WBC 4.2 X10*3/uL (4.8-10.8) L 04/13/24 Plt Count 139 X10*3/uL (160-400) L 04/13/24 Sodium 142 mmol/L (135-145) 05/28/24 Potassium 5.1 mmol/L (3.3-5.1) 05/28/24 Chloride 107 mmol/L (96-108) 05/28/24 Carbon Dioxide 29 mmol/L (22-29) 05/28/24 BUN 80 mg/dL (9-16) H 05/28/24 Creatinine 3.57 mg/dL (0.5-1.4) H 05/28/24 Calcium 9.8 mg/dL (8.4-10.2) 04/13/24 Phosphorus 4.6 mg/dL (2.7-4.5) H 11/10/23 Assessment & Plan Assessment & Plan (1) CKD (chronic kidney disease) stage 4, GFR 15-29 ml/min: Code(s): N18.4 - Chronic kidney disease, stage 4 (severe) Category: Medical (2) Gout: Code(s): M10.9 - Gout, unspecified Category: Medical Qualifiers: Gout site: foot Gout etiology: due to renal impairment Chronicity: acute Laterality: left Qualified Code(s): M10.372 - Gout due to renal impairment, left ankle and foot (3) Hypertension: Code(s): I10 - Essential (primary) hypertension Category: Medical Qualifiers: Hypertension type: secondary to other renal disorders Qualified Code(s): I15.1 - Hypertension secondary to other renal disorders (4) Secondary hyperparathyroidism (of renal origin): Code(s): N25.81 - Secondary hyperparathyroidism of renal origin Category: Medical (5) Anemia in chronic kidney disease: Code(s): N18.9 - Chronic kidney disease, unspecified; D63.1 - Anemia in chronic kidney disease Category: Medical Qualifiers: Chronic kidney disease stage: stage 4 (GFR 15-29) Qualified Code(s): N18.4 - Chronic kidney disease, stage 4 (severe); D63.1 - Anemia in chronic kidney disease Plan Jacy has left atrophic kidney. She has progressive renal dysfunction or many years. Her serum creatinine is fairly stable. Her last cr cl is close to 18 mls/mt. She does not have any uremic symptoms. Her blood pressure is not at goal. I started her on Carvedilol. She can continue current dose of amlodipine & allopurinol daily. She maintains good hydration. She avoids nonsteroidal anti-inflammatories. I ordered creatinine clearance. I discussed with her regarding options of renal replacement therapy as well as transplantation( referred to [facility] [place]). All her questions during this visit were answered. Follow-up appointment given Orders: Orders Creatinine 3 Months N18.4 - Chronic kidney disease, stage 4 (severe) Blood Urea Nitrogen 3 Months N18.4 - Chronic kidney disease, stage 4 (severe) Vitamin D 25-OH Total 3 Months N18.4 - Chronic kidney disease, stage 4 (severe) Parathyroid Hormone Intact 3 Months N18.4 - Chronic kidney disease, stage 4 (severe) Ferritin 3 Months N18.4 - Chronic kidney disease, stage 4 (severe) Electrolytes 3 Months N18.4 - Chronic kidney disease, stage 4 (severe) Calcium 3 Months N18.4 - Chronic kidney disease, stage 4 (severe) Complete Blood Count Auto Diff 3 Months N18.4 - Chronic kidney disease, stage 4 (severe) IRON PROFILE 3 Months N18.4 - Chronic kidney disease, stage 4 (severe) Referrals Transplant Surgery Referral N18.4 - Chronic kidney disease, stage 4 (severe) Medications: New carvedilol must administer with a meal/food 6.25 mg PO BID 60 tabs 4RF Coding Level of Care Code Est Pt Level 4 (80779) Diagnoses CKD (chronic kidney disease) stage 4, GFR 15-29 ml/min N18.4 Acute gout due to renal impairment involving left foot M10.372 Gout site: foot Gout etiology: due to renal impairment Chronicity: acute Laterality: left Hypertension secondary to other renal disorders I15.1 Hypertension type: secondary to other renal disorders Secondary hyperparathyroidism (of renal origin) N25.81 Anemia in stage 4 chronic kidney disease N18.4; D63.1 Chronic kidney disease stage: stage 4 (GFR 15-29)
[2024-06-01 10:28] VITALS: BP 140/50; PULSE 75; O2SAT 100; BMI 18.8
--- OUTSIDE RECORDS SUMMARY | 2024-06-06 07:16 | XMS_ITS ---
Author Organization Meño Edwards III, MD Address [address] [place] [address] Care Team Providers Care Knife Changer Name Role Phone Meño Edwards Primary Care Provider Allergies Allergen (clinical drug [...] Date Provider Diagnosis Meño Edwards III, MD [address] [place] [address] [place] [address] 02/10/2024 Meño Edwards Hyperlipidemia, unspecified E78.5 ; Pedal edema R60.0 [...] Up: SCHEDULED, Danielle son: OV Provider Name:Meño Edwards, 08/23/2024 09:30:00 AM, [address] [place] [address] [address], [place], [address], Provider Name:Meño Edwards, 04/22/2025 09:30:00 AM, [address] [place] [address] [address], [place], [address], Progress Notes * Jacy DOMINIQUE SDOB: [birth year] (69 yo F)Acc No.[id number]:02/10/2024 Patient:?Jacy Dominique S Provider:?Meño Edwards MD :1955???Age:69 Y???Sex:Female D ate:02/10/2024 Address:[address] [place], [place] [id number] Subjective: * Chief Complaints: * ???Pedal edemaChronic renal failureUnderweightOsteoporosis * HPI: ???:? This telehealth visit took place over 15 [...] but is able to ambulate without difficulty. ?Telehealth?Location of provider rendering services:?{...} [address] [place] [address] [address] [place] [address] ?Location of patient:?address listed in demographics for today's visit ?Patient identification confirmed using:?Name, ?Telehealth method:?Telephone only. Patient not visible to care provider. ?Consent:?Patient verbally consented to treatment, Patient verbally consented to billing insurance company, Patient informed of any privacy concerns related to method of visit ?Total time spent with patient (mins)?15 * ROS:?General/Constitutional:?pain?only normal aches and pains.?Chills?denies.?Fatigue?admits.?Fever?denies.?ENT:?Decreased hearing?denies.?Respiratory:?Cough?denies.?Cardiovascular:?Chest pain with exertion?denies.?Dyspnea on exertion?denies.?Shortness of breath?denies.?Gastrointestinal:?Constipation?occasional.?Decreased appetite?denies.?Diarrhea?denies.?Heartburn?denies.?Nausea?denies.?Rectal bleeding?denies.?Vomiting?denies.?Hematology:?bruising?denies.?petechiae?denies.?Swollen glands?none have been noted.?Genitourinary:?Frequent urination?at night.?Musculoskeletal:?Muscle aches?denies.?Painful joints?denies.?Sciatica?denies.?Weakness?denies.?Skin:?Itching?denies.?Rash?denies.?Skin lesion(s)?Pedal edema is significantly diminished.?Neurologic:?Difficulty speaking?denies.?Dizziness?denies.?Headache?denies.?Low back pain?denies.?Psychiatric:?Depressed mood?denies.? * Medical History:? * Surgical History:?wisdom leif th extraction tonsillectomy septum repair [id number] right cataract surgery 2012colonoscopy, adenomatous polyp 2004colonoscopy, wnl 2009biopsy on left index finger 09/2018Basal Cell removed, Left arm 01/10/2023 * Hospitalization/Major Diagno stic Procedure:?Denies Past Hospitalization * Family History:?Father: dece ased 95 yrs, hyperlipidemia, hypertension, diagnosed with Hyperlipidemia, HTN, Cancer.?Mother: 75 yrs, liver cancer, adult onset diabetes mellitus, diagnosed with Cancer, DM.?Spouse: alive.?1 brother(s) . .? She has no children. A brother at one year old. She is not aware of any family history of mental illness or addiction or substance use disorder. * Social History:?Tobacco Use:?Tobacco Use/Smoking?Patient is a?nonsmoker ?Additional Findings: Tobacco Non-User?Aggressive non-smoker ???She is single and comes fom [facility]. She has no children. * Medications:?TakingPulmicort Flexhaler 180 MCG/ACT Aerosol Powder Breath Activated [...] reviewed and reconciled with the patient * Allergies:?Seasonaleno[Aller gies Verified] Objective: * Vitals:?Ht: 65, Wt:104, BMI: 17.3, Ht-cm: 165.1, Wt-k.17. Assessment: * Assessment: 1.?Pedal edema - R60.0, She will finish and then stop the diuretic. She will continue to use compression hose. Follow-up visit was arranged.?2.?Hyperlipidemia, unspecified - E78.5, her lipids have been stable. No blood work is available today. A fasting lipid profile has been ordered. No change was made in her regimen.?3.?Mild intermittent asthma without complication - J45.20, She has had no difficulty with asthma lately. She has an inhaler which she has not been using.?4.?Underweight - R63.6, Her weight has been stable lately with a body mass index of 17. 5.?Acute idiopathic gout involving toe of left foot - M10.072, The gout has now resolved and she is on allopurinol.?6.?Osteoporosis - M81.0, She has been compliant with his therapy. It was reviewed with her today.?7.?Chronic kidney disease, stage 3a - N18.31, Her BUN is 70.The creatinine is 2.96. She is up-to-date with nephrology and continues on therapy without fail.? Plan: * Treatment: 2.?Others? Continue Pulmicort Flexhaler Aerosol Powder Breath Activated, 180 MCG/ACT, 2 puffs, Inhalation, Twice a day, Notes: October-March;?Continue ProAir HFA Aerosol Solution, 108 (90 Base) MCG/ACT, 2 puffs as needed, Inhalation, every 4 hrs, Notes: PRN;?Continue Vitamin E;?Continue Calcium + D;?Continue Allopurinol Tablet, 100 MG, TAKE 1 TABLET BY MOUTH DAILY, Oral;?Continue amLODIPine Besylate Tablet, 5 MG, 1 1/2 tablet, Orally, Once a day.?? * Procedure Codes:?76410 PHONE E/M BY PHYS 11-20 MIN * Preventive Medicine:? ??Counseling:?Care goal follow-up plan:?Counseling for abnormal BMI given?Yes ?Below Normal BMI Follow-up?Dietary education for weight gain * Follow Up:? SCHEDULED ([place] son: OV) * Images: * Sign off status: Completed true * Provider:?Meño Edwards MD Date:?01/25 Generated for Timothy kennedy/Ngoc/Yogesh on:?06/06/2024 07:16 AM EST History and Physical Notes * HPI (History of Present Illness) Category Sub-Category Detail Notes Telehealth Location of [facility] rendering services:: {...} [address] [place] [address] Location of patient:: address listed in demographics [...]
--- OUTSIDE RECORDS SUMMARY | 2024-06-06 07:16 | XMS_ITS ---
Author Organization Meño Edwards III, MD Address [address] [place] [address] Care Team Providers Care Top Former Name Role Phone Meño Edwards Primary Care [...] Problem Status W/U Status Risk Notes Problem [id number] Macular degeneration of both eyes, unspecified type (H35.30) Active confirmed Problem [id number] CKD (chronic kidney disease) stage 3, GFR 30-59 ml/min (N18.3) Active confirmed Her GFR is 24 and her creatinine is 3.22. She has an appointment upcoming with nephrology. She was encouraged to stay hydrated and to be compliant with her medications. Vital Signs Temperature 97.0 degrees Fahrenheit 04/19/20 Blood pressure systolic 138 mm Hg 04/19/20 Blood pressure diastolic 40 mm Hg 024 Heart Rate 65 /min 04/19/2024 Height 65 in 04/19/2024 Weight 109 lbs 04/19/2024 BMI 18.14 kg/m2 04/19/2024 Encounters Encounter Location Date Provider Diagnosis Meño Edwards III, MD [address] [place] [address] [place] [address] 04/19/2024 Meño Edwards Hyperlipidemia, unsp ecified E78.5 [...] She is under the care of an family service counselor. 04/19/2024 Hypercholesterolemia (ICD-10 - E78.00) Comprehensive blood [...] the patient's number of problems Provider Name:Meño Edwards, 08/23/2024 09:30:00 AM, [address] [place] [address] [address], [place], [address], Provider Name:Meño Edwards, 04/22/2025 09:30:00 AM, [address] [place] [address] [address], [place], [id number], Progress Notes * Jacy DOMINIQUE SDOB: [birth year] (69 yo F)Acc No.[id number]:04/19/2024 Progress Notes Patient:?Jacy DOMINIQUE S Provider:?Meño Edwards MD :1955???Age:69 Y???Sex:Female D ate:04/19/2024 Address:[address] [place] [id number] Subjective: * Chief Complaints: * ???Annual Examreview labs at * HPI: ???Depression Screening:?PHQ-9?Little interest or pleasure in doing things?Not at all ?Feeling down, depressed, or hopeless?Not at all ?Trouble falling or staying asleep, or sleeping too much?Nearly every day ?Feeling tired or having little energy?Nearly every day ?Poor appetite or overeating?Nearly every day ?Feeling bad about yourself or that you are a failure, or have let yourself or your family down?Not at all ?Trouble concentrating on things, such as reading the newspaper or watching television?Not at all ?Moving or speaking so slowly that other people could have noticed; or the opposite, being so fidgety or restless that you have been moving around a lot more than usual?Not at all ?Thoughts that you would be better off or of hurting yourself in some way?Not at all ?Total Score?9 ?Interpretation?Mild Depression ???COVID-19 Screening:?Questions?Have you experienced fever, chills, cough, sore throat, shortness of breath, difficulty breathing, muscle aches, loss of taste or smell??No ?Have you been exposed to the virus within the last 10 days??No ?Have you travelled internationally in the last 10 days??No ?Have you been exposed to COVID-19 in the past??No ???SDOH Questions:?SDOH Questions?In the past year have you been worried about losing your housing??No ?In the past year have you or any family members you live with been unable to get any of the following when it was really needed? Check all that apply:?None ???Fall Risk Screening:?Fall History?Have you had any falls with injury in the past year??No ?Have you had two or more falls in the past year??No ?Fall Risk Assessment:?No falls in the past year ???:?The patient, a 69-year-old female, reported a persistent [...] as this sounds mostly I nocturnal esophageal reflux.? Her renal functions were discussed.? She is up-to-date with nephrology.? She is otherwise asymptomatic.Her frozen food selector saw her recently and told her she has early macular degeneration.? Vitamins were recommended.? Follow-up was arranged. * ROS:?General/Constitutional:?pain?only normal aches and pains.?Chills?denies.?Fatigue?admits.?Fever?denies.?Allergy/Immunology:?Admits?Congestion.?ENT:?Decreased hearing?denies.?Denies?Sore throat.?Respiratory:?Cough?denies.?Cardiovascular:?Chest pain with exertion?denies.?Dyspnea on exertion?denies.?Shortness of breath?denies.?Gastrointestinal:?Constipation?occasional.?Decreased appetite?denies.?Diarrhea?denies.?Heartburn?occasional.?Nausea?denies.?Rectal bleeding?denies.?Vomiting?denies.?Hematology:?bruising?denies.?petechiae?denies.?Swollen glands?none have been noted.?Genitourinary:?Frequent urination?a small amount.?Musculoskeletal:?Muscle aches?denies.?Painful joints?denies.?Sciatica?denies.?Weakness?denies.?Skin:?Itching?denies.?Rash?denies.?Skin lesion(s)?denies.?Neurologic:?Difficulty speaking?denies.?Dizziness?denies.?Headache?denies.?Low back pain?denies.?Psychiatric:?Depressed mood?denies.? * Medical History:? * Surgical History:?wisdom leif th extraction tonsillectomy septum repair [id number] right cataract surgery 2012colonoscopy, adenomatous polyp 2004colonoscopy, wnl 2009biopsy on left index finger 09/2018Basal Cell removed, Left arm 01/10/2023No history * Hospitalization/Major Diagno stic Procedure:?No history * Family History:?Father: dece ased 95 yrs, hyperlipidemia, hypertension, diagnosed with HTN, Hyperlipidemia, Cancer.?Mother: 75 yrs, liver cancer, adult onset diabetes mellitus, diagnosed with Cancer, DM.?Spouse: alive.?1 brother(s) . .? She has no children. A brother at one year old. She is not aware of any family history of mental illness or addiction or substance use disorder. * Social History:?Tobacco Use:?Tobacco Use/Smoking?Patient is a?nonsmoker ?Additional Findings: Tobacco Non-User?Aggressive non-smoker ???She is single and comes fom [facility]. She has no children. * Medications:?TakingSodium Po lystyrene Sulfonate - Powder as directed Orally 30 [...] Allergies:?Seasonaleno[Aller gies Verified] Objective: * Vitals:?Ht: 65, Wt:109, BMI: 18.14, BP:138/40, HR:65, Temp:97.0, Ht-cm: 165.1, Wt-k.44. * ???Past Orders: Lab:Comprehensive Met. Panel * Collection Date 01/31/2024 01/10/2023 10/04/2022 Collection Time 10:50 AM 08:32 AM 10:14 AM Order Date 01/31/2024 01/10/2023 10/04/2022 Sodium 142 (Ref Range: 135-145 mmol/L) 145 (Ref Range: 135-145 mmol/L) 143 (Ref Range: 135-145 mmol/L) Bilirubin Total 0.2 (Ref Range: 0.0-1.0 mg/dL) 0.3 (Ref Range: 0.0-1.0 mg/dL) 0.4 (Ref Range: 0.0-1.0 mg/dL) Aspartate Amino Transferase 33?H (Ref Range: 5-31 U/L) 35?H (Ref Range: 5-31 U/L) 42?H (Ref Range: 5-31 U/L) Alanine Aminotransferase 28 (Ref Range: 0-31 U/L) 35?H (Ref Range: 0-31 U/L) 41?H (Ref Range: 0-31 U/L) Total Protein 6.9 (Ref Range: 6.5-8.0 g/dL) 6.3?L (Ref Range: 6.5-8.0 g/dL) 5.9?L (Ref Range: 6.5-8.0 g/dL) Albumin Level 4.4 (Ref Range: 3.5-5.0 g/dL) 4.1 (Ref Range: 3.5-5.0 g/dL) 4.0 (Ref Range: 3.5-5.0 g/dL) Alkaline Phosphatase 85 (Ref Range: 39-117 U/L) 76 (Ref Range: 39-117 U/L) 93 (Ref Range: 39-117 U/L) Potassium 4.8 (Ref Range: 3.3-5.1 mmol/L) 4.7 (Ref Range: 3.3-5.1 mmol/L) 4.7 (Ref Range: 3.3-5.1 mmol/L) Chloride 108 (Ref Range: 96-108 mmol/L) 114?H (Ref Range: 96-108 mmol/L) 110?H (Ref Range: 96-108 mmol/L) Carbon Dioxide 23 (Ref Range: 22-29 mmol/L) 23 (Ref Range: 22-29 mmol/L) 23 (Ref Range: 22-29 mmol/L) Anion Gap 16 (Ref Range: 12-20) 13 (Ref Range: 12-20) 15 (Ref Range: 12-20) Blood Urea Nitrogen 66?H (Ref Range: 9-16 mg/dL) 53?H (Ref Range: 9-16 mg/dL) 56?H (Ref Range: 9-16 mg/dL) Creatinine 3.22?H (Ref Range: 0.5-1.4 mg/dL) 2.59?H (Ref Range: 0.5-1.4 mg/dL) 2.71?H (Ref Range: 0.5-1.4 mg/dL) Estimated Glomerular Filt Rate 14 18 17 Glucose Random 88 (Ref Range: 60-115 mg/dL) 98 (Ref Range: 60-115 mg/dL) 87 (Ref Range: 60-115 mg/dL) Calcium 9.3 (Ref Range: 8.4-10.2 mg/dL) 9.7 (Ref Range: 8.4-10.2 mg/dL) 9.1 (Ref Range: 8.4-10.2 mg/dL) * Lab:Complete Blood Count Aut o Diff * Collection Date 04/13/2024 01/31/202409/09/2023 Collection Time 07:26 AM 10:50 AM 12:19 PM Order Date 04/13/2024 01/31/2024 09/09/2023 White Blood Count 4.2?L (Ref Range: 4.8-10.8 X10*3/uL) 4.7?L (Ref Range: 4.8-10.8 X10*3/uL) 7.3 (Ref Range: 4.8-10.8 X10*3/uL) Red Blood Count 2.99?L (Ref Range: 4.20-5.50 X10*6/uL) 3.02?L (Ref Range: 4.20-5.50 X10*6/uL) 3.59?L (Ref Range: 4.20-5.50 X10*6/uL) Hemoglobin 9.6?L (Ref Range: 12.0-16.0 g/dl) 9.6?L (Ref Range: 12.0-16.0 g/dl) 11.3?L (Ref Range: 12.0-16.0 g/dl) Hematocrit 30.0?L (Ref Range: 37.0-47.0 %) 30.6?L (Ref Range: 37.0-47.0 %) 35.5?L (Ref Range: 37.0-47.0 %) Mean Corpuscular Volume 100.3?H (Ref Range: 80.0-98.0 fL) 101.3?H (Ref Range: 80.0-98.0 fL) 98.9?H (Ref Range: 80.0-98.0 fL) Mean Corpuscular Hemoglobin 32.1 (Ref Range: 27.0-33.0 pg) 31.8 (Ref Range: 27.0-33.0 pg) 31.5 (Ref Range: 27.0-33.0 pg) Mean Corpuscular HGB Conc 32.0 (Ref Range: 31.0-35.0 g/dl) 31.4 (Ref Range: 31.0-35.0 g/dl) 31.8 (Ref Range: 31.0-35.0 g/dl) Red Cell Distribution Width 13.6 (Ref Range: 11.0-16.0 %) 13.2 (Ref Range: 11.0-16.0 %) 12.2 (Ref Range: 11.0-16.0 %) Platelet Count 139?L (Ref Range: 160-400 X10*3/uL) 114?L (Ref Range: 160-400 X10*3/uL) 161 (Ref Range: 160-400 X10*3/uL) Mean Platelet Volume 11.1 (Ref Range: 9.4-12.3 fL) 11.0 (Ref Range: 9.4-12.3 fL) 11.3 (Ref Range: 9.4-12.3 fL) Neutrophils Percent Auto 62.3 (Ref Range: 45-73 %) 69.4 (Ref Range: 45-73 %) 78.8?H (Ref Range: 45-73 %) Imm Gran Pct Auto 0.2 (Ref Range: 0.0-0.4 %) 0.4 (Ref Range: 0.0-0.4 %) 0.4 (Ref Range: 0.0-0.4 %) Lymphocytes Percent Auto 24.5 (Ref Range: 20-40 %) 20.1 (Ref Range: 20-40 %) 13.7?L (Ref Range: 20-40 %) Monocytes Percent Auto [...] (Ref Range: 0.00-0.03 X10*3/uL) Lymphocytes Absolute Auto 1.0?L (Ref Range: 1.2-4.9 X10*3/uL) 0.9?L (Ref Range: 1.2-4.9 X10*3/uL) 1.0?L (Ref Range: 1.2-4.9 X10*3/uL) Monocytes Absolute Auto [...] Date 03/02/2024 09/09/2023 09/08/2021 Blood Urea Nitrogen 63?H (Ref Range: 9-16 mg/dL) 76?H (Ref Range: 9-16 mg/dL) 62?H (Ref Range: 9-16 mg/dL) * Lab:Electrolytes * Collection Date 03/02/2024 09/09/2023 07/22/2022 Collection Time 12:58 PM 12:19 PM 11:05 AM Order Date 03/02/2024 09/09/2023 07/22/2022 Sodium 140 (Ref Range: 135-145 mmol/L) 145 (Ref Range: 135-145 mmol/L) 143 (Ref Range: 135-145 mmol/L) Potassium 5.5?H (Ref Range: 3.3-5.1 mmol/L) 4.8 (Ref Range: 3.3-5.1 mmol/L) 4.9 (Ref Range: 3.3-5.1 mmol/L) Chloride 110?H (Ref Range: 96-108 mmol/L) 111?H (Ref Range: 96-108 mmol/L) 112?H (Ref Range: 96-108 mmol/L) Carbon Dioxide 21?L (Ref Range: 22-29 mmol/L) 24 (Ref Range: 22-29 mmol/L) 21?L (Ref Range: 22-29 mmol/L) Anion Gap 15 (Ref Range: 12-20) 15 (Ref Range: 12-20) 15 (Ref Range: 12-20) ???Lab:Creatinine Clearance Urine (Order Date - 03/02/2024) (Collection Date & Time - 03/02/2024 08:00 AM)?ValueReference Range?Creatinine (CrCl) 3.04H0.5-1.4 - mg/dL?Creatinine Jelgxqykj46.4F49-126 - mL/min ?Creatinine, 24Hr Urine0.8L1.0-2.0 - G/Day?Total Volume 24 Hour Nyqzd0263- mL?Creatinine, mg/dL40.82- * Lab:Creatinine * Collection Date 03/02/2024 09/09/2023 09/08/2021 Collection Time 12:58 PM 12:19 PM 11:19 AM Order Date 03/02/2024 09/09/2023 09/08/2021 Creatinine 3.04?H (Ref Range: 0.5-1.4 mg/dL) 3.26?H (Ref Range: 0.5-1.4 mg/dL) 2.29?H (Ref Range: 0.5-1.4 mg/dL) Estimated Glomerular Filt Rate 15 * Examination: ???General Examination: ?GENERAL APPEARANCE:?pleasant, well nourished, well developed, in no acute distress, calm and relaxed, underweight, woman.?HEAD:?atraumatic, normocephalic.?EYES:?eomi, perrla, anicteric, conjugate.?EARS:?normal.?NOSE:?septum intact.?ORAL CAVITY:?normal, unremarkable.?NECK/THYROID:?no jugular venous distention, no carotid bruit, thyroid normal.?LYMPH NODES:?no enlarged lymph nodes,spleen normal.?SKIN:?no suspicious lesions, anicteric.?HEART:?no clicks, gallops, murmurs, or rubs, regular rhythm, S1, S2 normal, no s3, or vascular bruits.?LUNGS:?clear to auscultation .?BREASTS:?Not examined.?ABDOMEN:?bowel sounds normal, no ascites, no organomegaly, no mass.?RECTAL EXAM:?not examined.?MUSCULOSKELETAL:?extremities unremarkable, no clubbing, cyanosis or edema.?PERIPHERAL PULSES:?normal.?NEUROLOGIC:?alert and oriented, cranial nerves 2-12 grossly intact, deep tendon reflexes 2+ symmetrical, motor strength normal upper and lower extremities, sensory exam intact.?PSYCH:?alert, oriented.? Assessment: * Assessment: 1.?CKD (chronic kidney disea se) stage 3, GFR 30-59 ml/min - N18.3 (Primary)???Notes :Her GFR is 24 and her creatinine is 3.22. She has an appointment upcoming with nephrology. She was encouraged to stay hydrated and to be compliant with her medications.???2.?Hyperlipidemia, unspecified - E78.5???Notes :her lipids have been stable. No blood work is available today. A fasting lipid profile has been ordered. No change was made in her regimen.???3.?Pancytopenia - D61.818???Notes :All 3 cell lines have been diminished.? This is likely due to her chronic renal failure.? The mean cell volume remains slightly elevated.? It is being observed carefully.???4.?H/O hyperthyroidism - Z86.39???Notes :She reports a good appetite.? She is consuming adequate calories.? She remains underweight.? Her thyroid function tests will be checked once again.? She has a history of thyroiditis.? She is under the care of an family service counselor.???5.?Hypercholesterolemia - E78.00???Notes :Comprehensive blood work with a fasting lipid profile is being done periodically.? No change in her medication was made today.? Her lipids have been controlled.???6.?Neutropenia - D70.9???Notes :Her white blood cell count is 4000.? The neutrophil population is normal and the lymphocyte count is 1000 which is slightly low.???7.?Underweight - R63.6???Notes :Her weight has been stable lately with a body mass index of 17.???8.?Mild intermittent asthma without complication - J45.20???Notes :She has had no difficulty with asthma lately. She has an inhaler which she has not been using.???9.?Acute idiopathic gout involving toe of left foot - M10.072???Notes :The gout has now resolved and she is on allopurinol.??? Plan: * Treatment: 2.?Pancytopenia?LAB: PROFILE, FASTING (COMPREHENSIVE METABOLIC) ?LAB: TSH (THYROID STIMULATING HORMONE) ?LAB: CBC w DIFF ?LAB: Lipid Panel ?LAB: Free T4 (Free Thyroxine) 3.?H/O hyperthyroidism?LAB: PROFILE, FASTING (COMPREHENSIVE METABOLIC) ?LAB: TSH (THYROID STIMULATING HORMONE) ?LAB: CBC w DIFF ?LAB: Lipid Panel ?LAB: Free T4 (Free Thyroxine) 4.?Hypercholesterolemia?LAB: PROFILE, FASTING (COMPREHENSIVE METABOLIC) ?LAB: TSH (THYROID STIMULATING HORMONE) ?LAB: CBC w DIFF ?LAB: Lipid Panel ?LAB: Free T4 (Free Thyroxine) 5.?Neutropenia?LAB: PROFILE, FASTING (COMPREHENSIVE METABOLIC) ?LAB: TSH (THYROID STIMULATING HORMONE) ?LAB: CBC w DIFF ?LAB: Lipid Panel ?LAB: Free T4 (Free Thyroxine) 6.?Others? Continue Pulmicort Flexhaler Aerosol Powder Breath Activated, 180 MCG/ACT, 2 puffs, Inhalation, Twice a day, Notes to Pharmacist: October-March;?Continue ProAir HFA Aerosol Solution, 108 (90 Base) MCG/ACT, 2 puffs as needed, Inhalation, every 4 hrs, Notes to Pharmacist: PRN;?Continue Vitamin E;?Continue Calcium + D;?Continue Allopurinol Tablet, 100 MG, TAKE 1 TABLET BY MOUTH DAILY, Oral;?Continue amLODIPine Besylate Tablet, 5 MG, 1 1/2 tablet, Orally, Once a day.?? * Labs:? * ?Lab: URINE DIP STICK (C ollection Date & Time - 04/19/2024 09:15 AM)?Normal ? Value Reference Range ?SG 1.000 1.005 - 1.025 * ?pH 5.0 5.0 - 9.0 * ?DIMITRIS neg Negative - * ?NIT neg Negative - * ?PRO 300 Negative - Trac e * ?GLU neg Negative - * ?KET neg Negative - * ?UBG 0.2 0.1 - 1.8 * ?SKYLA neg 0.2 - 1.3 * ?BLD trace Negative - * ?Menstrating no * Procedure Codes:?09970 URINE -NO MICRO * Preventive Medicine:? ??Counseling:?Care goal follow-up plan:?Counseling for abnormal BMI given?Yes ?Below Normal BMI Follow-up?Dietary education for weight gain * Follow Up:?In about four mon ths (Reason: To monitor the patient's number of problems) * Images: * Sign off status: Completed true * Provider:?Meño Edwards MD Date:?03/28 Generated for Timothy kennedy/Ngoc/eTransmitting on:?06/06/2024 07:16 AM EST History and Physical [...] Fall Risk Assessment:: No falls in the year COVID-19 Screening Questions Have you expe rienced fever, chills, cough, sore throat, shortness of breath, difficulty breathing, muscle aches, loss of taste or smell?: No Have you been exposed to the virus withi n the last 10 days?: No Have [...]
--- OUTSIDE RECORDS SUMMARY | 2024-06-06 07:17 | XMS_ITS ---
Author Organization [facility] Address [address] [place] [address] Care Team Providers Care Traffic Division Commanding Officer Name Role Phone Grace BAKER, Meño Primary Care Provider Unavailab [place] Unavailable [phone] Vin Quevedo Unavailable [phone] REASON FOR VISIT Seen Sooner Encounters Encounter Location Date Provider Diagnosis [facility] [address] [address] 10/06/2023 Vin Quevedo Plan Of Treatment No Information Progress Notes * Jacy DOMINIQUE SDOB: [birth year] (69 yo F)Acc No.[id number]:10/06/2023 Progress Note Patient:?Jacy DOMINIQUE Provider:?Vin Quevedo DPM :1955???Age:68 Y???Sex:Female D ate:10/06/2023 Address[address] [id number] Pcp:Meño Edwards MD Subjective: * Chief Complaints: * ???1. Seen Sooner. * Medical History:? Objective: * Vitals:? Assessment: Plan: * Treatment: * Images: * The named appointment provid er may or may not be the originator of this progress note, and it is not deemed complete until electronically signed by the appointment provider. Sign off status: Pending * Provider:?Vin Quevedo DPM Date:?2023 Generated for Timotyh kennedy/Ngoc/Yogesh on:?06/06/2024 07:17 AM EST
--- OUTSIDE RECORDS SUMMARY | 2024-06-06 07:17 | XMS_ITS ---
Author Organization [facility] Address [address] [place] [address] Care Team Providers Care Em Physician Name Role Phone Meño Edwards MD Primary Care Provider London Quijano Unavailable [phone] Allergies Allergen (clinical drug ingredient) Drug/Non Drug Allergy documented on EMR Reaction Allergy Type Onset Date Status Grass Mix Pollens Allergen Ext Unknown Drug Allergy Active Mold Unknown Allergy Active REASON FOR VISIT Last PCP Visit: 09/06/23, Foot pain Medications Medication SIG (Take, Route, Frequency, Duration) Notes Start Date End Date Status Atorvastatin Calcium 10 MG 1 tablet Orally Once a day for 30 day(s) Active Pulmicort Flexhaler 180 MCG/ACT 1 puff Inhalation Once a day Active amLODIPine Besylate 1 MG/ML 5 mL Orally Once a day for 30 day(s) Not-Taking Albuterol PRN Active amLODIPine Besylate 5 MG 1 tablet Orally Once a day for 30 day(s) once a day Active Colcrys 0.6 MG 1 tablet Orally once a day for 10 days 09/09/2023 Active Social History Tobacco Use: Social History Observation Description Date Details (start date - stop date) Never Smoker NA - NA Tobacco Use/Smoking Question Answer Notes Are you a: nonsmoker Additional Findings: Tobacco Non-User Current no n-smoker Alcohol Screen Question Answer Notes Did you have a drink containing alcohol in the p ast year? Yes Points 0 Interpretation Negative Tobacco use other than smoking: Question Answer Notes Are you an other tobacco user? 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 Vital Signs Height 5 ft 4 in in 09/09/2023 Weight 103 lbs 09/09/2023 BMI 17.68 kg/m2 09/09/2023 Encounters Encounter Location Date Provider Diagnosis [facility] [place] [address] [address] 09/09/2023 London Daquan Pain in left foot M79.672 ; Toxic effect of lead and its compounds, accidental (unintentional), initial encounter T56.0X1A and Lead-induced gout, left ankle and foot M10.172 Assessments Encounter Date Diagnosis (ICD Code) Assessment Notes Treatment Notes Treatment Clinical Notes Section Notes 09/09/2023 Pain in left foot (ICD-10 - M79.672) 09/09/2023 Toxic effect of lead and its compounds, accidental (unintentional) , initial encounter (ICD-10 - T56.0X1A) 09/09/2023 Lead-induced gout, left ankle and foot (ICD-10 - M10.172) Plan Of Treatment Medication Medication Name Sig Start Date Stop Date Notes Colcrys 0.6 MG 1 tablet Orally once a day for 10 days 08/25 Pending Test Test Name Order Date *Uric Acid, Serum 09/09/2023 *Sedimentation Rate-Westergren Next Appt Details Follow Up: prn, Reason: Progress Notes * Jacy DOMINIQUE SDOB: [birth year] (68 yo F)Acc No.[id number]:09/09/2023 Progress Note Patient:?Jacy Dominique Provider:?London Butt DPM :1955???Age:68 Y???Sex:Female D ate:09/09/2023 Address: [address] [facility], [facility] Pcp:Meño Edwards MD Subjective: * Chief Complaints: * ??? Last PCP Visit: 09/06/23F oot pain * HPI: ???Foot Pain:?Nature:?swelling, tenderness, sharp, aching, throbbing.?Location?Great toe joint, Left .?Duration:?several days--11.?Onset/Cause:?yard work.?Course:?improved.?Aggrevated:?any pressure, standing, walking.?Treatments:?rest, elevation, tyl and 5 day course of prednisone from urgent care and then f/uwith PCP.?Quality/Severity?10, scale 1-10 at worst and currently, 7, scale 1-10.? * ROS:?General/Constitutional:?Nausea?denies, denies.?Vomiting?denies, denies.?Hunger Thirst?denies, denies.?Loss appetite?denies, denies.?Chills?denies, denies.?Fatigue?denies, denies.?Fever?denies, denies.?Night Sweats denies, denies.?Unexplained weight loss?admits, denies.?Unexplained weight gain?denies.?Ophthalmologic:?Blurred vision?denies.?Red eye?denies.?HEENTM:?Dentures?denies, denies.?Dizziness?denies, denies.?Glasses/contacts?admits, denies.?Retinopathy?denies, denies.?Blurred/double vision?denies, denies.?TMJ?admits, denies.?Discharge/drainage?denies, denies.?Implants?denies, denies.?Sore throat?denies.?Dental implants?denies.?Hard of hearing ?denies, denies.?Difficulty chewing/swallowing/speaking?denies, denies.?Nose bleeds?denies, denies.?Sore mouth?denies, denies.?Swollen glands?denies.?Respiratory:?On Oxygen?denies, denies.?Pneumonia/pleurisy?denies, denies.?Bronchitis?admits, denies.?Emphysema?denies, denies.?Coughing?denies, denies.?Cough blood?denies, denies.?Shortness of breath?denies, denies.?Wheezing?admits, denies.?Cardiovascular:?Pacemaker?denies, denies.?MVP?denies, denies.?WPW?denies, denies.?CHF?denies, denies.?Heart attack?denies, denies.?Septal defect?denies, denies.?Rapid beat?denies, denies.?Chest pain ?denies, denies.?Atrial Fib.?denies, denies.?Murmur/Palpitations?denies, denies.?Gastrointestinal:?Hemorrhoids?denies, denies.?Stomach/Abdominal pain?denies, denies.?Dark blood stool?denies, denies.?Irritable bowel ?denies, denies.?Constipation?denies, denies.?Diarrhea?denies, denies.?Vomiting?denies.?Hematology:?Swelling?admits, denies.?Clots?denies.?Varicose Veins?denies.?Bruising?denies, denies.?Bleeding problem?denies, denies.?Genitourinary:?Blood urine?denies, denies.?Frequent/Painfu/urination/bladder control?admits, denies.?Kidney stones?denies, denies.?Infection (UTI)?denies, denies.?Nephropathy?denies, denies.?sex trans dis (STD)?denies.?Prostate?denies.?Musculoskeletal:?Hammertoes?denies, denies.?Bunions?denies, denies.?Scoliosis/kyphosis?denies.?Back Pain?admits.?Muscle Cramps/ Resting?admits.?Muscle cramps / walking?denies, denies.?Generalized aches and pains?denies, denies.?Weakness?denies, denies.?Integ.:?Ruby?denies, denies.?Scars?denies, denies.?Corns/calluses?admits, denies.?Ingrown nails?admits, denies.?Painful nails?denies, denies.?Open Sores?denies.?Rashes?denies, denies.?Neurologic:?Difficulty sleeping?admits, denies.?Bipolar?denies.?Brain disorder?denies, denies.?Numbness?denies.?Balance trouble?denies, denies.?Confusion?denies, denies.?Fainting/blackouts?denies, denies.?Headache?denies.?Tingling?denies.?Tremors?denies, denies.? * Medical History:? * Surgical History:?tonsillect zak and adenoidectomy wisdom teeth extraction 1972cataract surgery 10/28/2015deviated septum repair 1976 * Hospitalization/Major Diagno stic Procedure:?Denies Past Hospitalization * Family History:?Mother: dece ased, cancer, diagnosed with Diabetic - NIDDM.?Father: alive, high blood pressure.?Siblings: defects, kidney/liver disease.?Maternal Grand Mother: diagnosed with Family history of arthritis.? * Social History:?Tobacco Use:?Tobacco Use/Smoking?Are you a:?nonsmoker ?Additional Findings: Tobacco Non-User?Current non-smoker ?Tobacco use other than smoking?Are you an other tobacco user??No ???Drugs/Alcohol:?Drugs?Have you used drugs other than those for medical reasons in the past 12 months??No ?Alcohol Screen?Did you have a drink containing alcohol in the past year??Yes ?Points?0 ?Interpretation?Negative ???Miscellaneous:?Caffeine: yes, 2 cups. ?Exercise: exercises learned in PT , mid day walks. ?Marital status: . 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 * Medications:?TakingamLODIPin e Besylate 5 MG Tablet 1 tablet Orally Once a day, Notes: once a dayAlbuterol , Notes: PRNAtorvastatin Calcium 10 MG Tablet 1 tablet Orally Once a dayPulmicort Flexhaler 180 MCG/ACT Aerosol Powder Breath Activated 1 puff Inhalation Once a dayTaking amLODIPine Besylate 5 MG Tablet 1 tablet Orally Once a day, Notes: once a dayTaking Albuterol , Notes: PRNTaking Atorvastatin Calcium 10 MG Tablet 1 tablet Orally Once a dayTaking Pulmicort Flexhaler 180 MCG/ACT Aerosol Powder Breath Activated 1 puff Inhalation Once a dayNot-Taking/PRNamLODIPine Besylate 1 MG/ML Solution 5 mL Orally Once a dayMedication List reviewed and reconciled with the patientNot-Taking/PRN amLODIPine Besylate 1 MG/ML Solution 5 mL Orally Once a dayMedication List reviewed and reconciled with the patient * Allergies:?Grass Mix Pollens Allergen ExtMoldyes[Allergies Verified] Objective: * Vitals:?Ht: 5 ft 4 in, Wt:10 3, BMI:17.68, Shoe size:7. * Examination: ???General Examination: ?GENERAL APPEARANCE:?pleasant, alert, well nourished, well developed, well hydrated, with good attention to hygene/body habitus, and in no acute distress.?ORIENTED:?person,place, and time.?Neurological: ?SENSORY:? Neurological exam demonstrates pop left first mtpj and attempted rom left first .?TINEL'S COMPRESSION:?Negative tarsal tunnel, anette pedis, and medial calcaneal nerves B/L.?BABINSKI REFLEX:?absent.?Neuroma Pain: ?PALPATION:?No interspace pain noted on palpation.?Vascular: ?DP PULSES:?2/4, B/L.?PT PULSES:? 1/4, B/L.?CAPILLARY FILL TIME:?3 secs. per digit, B/L.?SKIN TEMPERTURE GRADIENT OF THE LOWER EXTERMITIES:?warm to cool, proximal to distal, B/L.?HAIR GROWTH/TEXTURE/ELASTICITY/TURGOR:?normal, B/L.?PIGMENTATION:?normal, B/L.?EDEMA:? 3/4, Left forefoot.?TELANGECTASIA:?absent.?VARICOSITIES:?absent.?Dermatologic: ?SKIN FINDINGS:?Skin exam reveals normal texture, elasticity, and tugor. There are no masses. The interspaces are clear, B/L .?Orthopedic: ?MUSCLE STRENGTH:?5/5 all groups in a symmetrical fashion , B/L.?GAIT ABNORMALITY:?pronated, abducted, B/L.?X-Rays - IMAGING REPORT: ?Clinical Indication(s):? Evaluate for Fracture.?Views:? 3 views of Foot, LEFT from urgent care and from PCP.?Fracture:? Negative fractures identified.? 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 Plan: * Treatment: * Procedure Codes:?K0567 1 pc drainable ost pouch * Preventive Medicine:? ??Counseling:?Discussion:?-14: Office or other outpatient visit for the evaluation and management of an established patient, which required a medically appropriate history and/or examination and MODERATE level of DECISION MAKING for: 1 OR MORE CHRONIC PROBLEM(S) THATS WORSENING, 2 STABLE CHRONIC PROBLEMS, A NEWLY DIAGNOSED PROBLEM WITH UNCERTAIN PROGNOSIS, AN ACUTE COMPLICATED INJURY WITH MULTIPLE TREATMENT OPTIONS, OR AN ACUTE PROBLEM WITH ACCOMPANYING SYSTEMIC SYMPTOMS, THAT POSE(S) A MODERATE RISK OF MORBIDITY. THIS CONDITION MAY ALSO INCLUDE RX DRUG MANAGEMENT, OR A DECISON FOR MINOR SURGERY. The visit on the day of the encounter encompassed interpreting the data and educating the patient as to the nature of their condition, treatment options available according to their individual PMH, meds, allergies, and overall health/living conditions, as well as any potential risks or complications that may occur from a failure to adhere to, and participate in, the recommended course of therapy. The discussion included a complete verbal, and/or written explanation of the examination results, any x-rays taken, the proposed diagnosis, and outline of the treatment plan. A schedule for future care needs was also explained. The patient verbalized an understanding of the instructions at this time and agreed to be an active participant in their treatment. If the patient should think of any questions or concerns after the visit, I have encouraged the patient to call the office.?Consult:?The Pt. was counseled on the diagnosis, treatment options, and the need for a, Nephrology--we called her specialist and they were unavailable today to comment on rx colchicine; pt to call PCp to discuss use of low dose colchicine for approval prior to starting.?Gout:?I explained to the patient the possible etiologies for Gout, including genetic, excess dietary protein, excess dietary sugar, alcohol, diuretic medications, dehydration, and/or previous surgery. An information sheet re: the foods to enjoy as well as avoid was dispensed and detailed at the time of visit. We discussed the risks/benefits of all the different treatment options for Gout including: No treatment at all, Rest, Ice, NSAIDs(only if well tolerated after meals), Oral steroids, Colchicine, New/supportive Shoegear, Foot/Ankle AFO Bracing, Arch support/shoe inserts, Custom orthoses, Topical analgesics including Aspercream/Voltaren gel/Custom compounded combination therapy, and Dietary modification. Advantages and disadvantages of each option were discussed and the patients questions re: shoegear, custom vs prefabricated inserts, activity level, PO vs Topical medications (and their respective potential complications/drug interactions/side effects including the possible interaction with statin medications ), diet, and consistency in home treatment regimens for optimal success were answered to their verbally confirmed satisfaction, Diet modification, Handout given and reviewed, A serum Uric acid level was ordered, ESR lab ordered.?Steriod Injection:?I explained that a steroid and local anesthetic injections are administered to relieve pain and inflammation and thereby meant to improve function. I explained the possible complications including but not limited to signs/symptoms of steroid flare, infection, bruising, atrophy, discoloration of skin, change/deviation in toe position, and that additional injections may be necessary, cortisone post-injection informative educational handout was dispensed to and reviewed with the patient, Pt defers injection today.? * Follow Up:?prn * Images: * Sign off status: Completed true * Provider:?London Butt DPM Date:? 024 Generated for Timothy kennedy/Ngoc/Angelaitting on:?06/06/2024 07:17 AM EST History and Physical Notes * HPI (History of Present Illness) Category Sub-Category Detail Notes Category Not es Foot Pain Aggrevated: any pressure, standing, walk ing Onset/Cause: yard work Course: improved Duration: several days--11 Nature: swelling, tenderness , sharp, aching, throbbing Treatments: rest, elevation, tyl and 5 day course of prednisone from urgent care and then f/uwith PCP Quality/Severity 10, scale 1-10 at wo rst and currently, 7, scale 1-10 Location Great toe joint, Lef t Examination Category Sub-Category Detail Notes Category Not es Neuroma Pain PALPATION: No interspace pain noted on palpation Neurological SENSORY: Neurological exa m demonstrates pop left first mtpj and attempted rom left first BABINSKI REFLEX: absent TINEL'S COMPRESSION: Negative tarsal candelaria le, anette pedis, and medial calcaneal nerves B/L Dermatologic SKIN FINDINGS: Skin exam reveal s normal texture, elasticity, and tugor. There are no masses. The interspaces are clear, B/L Orthopedic GAIT ABNORMALITY: pronated, abducted, B/L MUSCLE STRENGTH: 5/5 all groups in a symmetrical fashion , B/L General Examination GENERAL APPEARANCE: pleasant , alert, well nourished, well developed, well hydrated, with good attention to hygene/body habitus, and in no acute distress ORIENTED: person,place, and ti me Vascular DP PULSES(B): 2/4, B/L PT PULSES(B): 1/4, B/L CAPILLARY FILL TIME: 3 secs. per digit, B/L TEMPERTURE GRADIENT(C): warm to cool, pr oximal to distal, B/L TROPHIC CONDITION-TEXTURE/ELASTICITY/TURGOR/HAIR GROWTH(B): normal, B/L EDEMA(C): 3/4, Left forefoot TELANGECTASIA: absent VARICOSITIES: absent PIGMENTATION: normal, B/L X-Rays - IMAGING REPORT Fracture: Negative fracture s identified Views: 3 views of Foot, LEF T from urgent care and from PCP Clinical Indication(s): Evaluate for Fra cture
--- OUTSIDE RECORDS SUMMARY | 2024-06-06 07:17 | XMS_ITS ---
Author Organization Meño Edwards III, MD Address [address] [place] [address] Care Team Providers Care Preassembler And Inspector Name Role Phone Meño Edwards Primary Care Provider [phone] Allergies Allergen (clinical drug ingredient) Drug/Non Drug [...] Date Provider Diagnosis Meño Edwards III, MD [address] [place] [address] [place] [address] 02/03/2024 Meño Edwards Hyperlipidemia, unspecified E78.5 ; [...] 6 Weeks, Reason: Office visit Provider Name:Meño Edwards, 08/23/2024 09:30:00 AM, [address] [place] [address] [place] [place], [place], [phone], Provider Name:Meño Edwards, 04/22/2025 09:30:00 AM, [address] [place] [address] [place], [address], Progress Notes * Jacy DOMINIQUE SDOB: [birth year] (69 yo F)Acc No.[id number]:02/03/2024 Patient:?Jacy Dominique Provider:?Meño Edwards MD :1955???Age:69 Y???Sex:Female D ate:02/03/2024 Address: [id number] Subjective: * Chief Complaints: * ???Pedal edemaChronic renal failureUnderweightAsthmaOsteoporosis * HPI: ???:? This telehealth visit took place over 15 minutes with the patient at home and me in my office. She gave consent for billing. She says she is feeling better. Her legs have improved somewhat. She is wearing stockings every day. The soles of her feet have a burning feeling. She has no fever. Current therapy was continued. ?Telehealth?Location of provider rendering services:?{...} [address] [place] [address] Drive [address] [facility] [address] ?Location of patient:?address listed in demographics for [...] breath?denies.?Gastrointestinal:?Constipation?occasional.?Decreased appetite?denies.?Diarrhea?denies.?Heartburn?denies.?Nausea?denies.?Rectal bleeding?denies.?Vomiting?denies.?Hematology:?bruising?denies.?petechiae?denies.?Swollen glands?none have been noted.?Genitourinary:?Frequent urination?denies.?Musculoskeletal:?Muscle aches?denies.?Painful joints?Feet.?Sciatica?denies.?Weakness?denies.?Skin:?Itching?denies.?Rash?denies.?Skin lesion(s)?Swollen feet.?Neurologic:?Difficulty speaking?denies.?Dizziness?denies.?Headache?denies.?Low back pain?denies.?Psychiatric:?Depressed mood?denies.? * Medical History:? * Surgical History:?wisdom leif th extraction tonsillectomy septum repair [id number] right cataract surgery 2012colonoscopy, adenomatous polyp 2004colonoscopy, [...] non-smoker ???She is single and comes fom [facility]. She has no children. * Medications:?TakingPulmicort Flexhaler [...] 2 puffs Inhalation Twice a day, Notes: October-king ProAir HFA 108 (90 Base) MCG/ACT Aerosol [...] 17.3, Ht-cm: 165.1, Wt-k.17. Assessment: * Assessment: 1.?Hyperlipidemia, unspecifi ed - E78.5, No change in her regimen was made today. She will have periodic evaluation of a fasting lipid profile.?2.?Underweight - R63.6, Her weight has been stable lately with a body mass index of 17.?3.?Mild intermittent asthma without complication - J45.20, She has had no difficulty with asthma lately. She has an inhaler which she has not been using.?4.?Chronic kidney disease, stage 3a - N18.31, Her BUN is 70.The creatinine is 2.96. She is up-to-date with nephrology and continues on therapy without fail.?5.?Peripheral edema - R60.0, She will continue to hold her amlodipine and use the compression hose and leg elevation. Comprehensive blood work was ordered prior to her decision about diuretics.? Plan: * Treatment: 2.?Others? Continue Pulmicort Flexhaler [...] tablet, Orally, Once a day.?? * Procedure Codes:?27235 PHONE E/M BY APOLONIA 11-20 MIN * Preventive Medicine:? ??Counseling:?Care goal follow-up plan:?Counseling for abnormal BMI given?Yes ?Below Normal BMI Follow-up?Dietary education for weight gain, Dietary management education, guidance, and counseling * Follow Up:?6 Weeks (Reason: Office visit) * Images: * Sign off status: Completed true * Provider:?Meño Edwards MD Date:?02/2024 Generated for Timothy kennedy/Ngoc/Angelaitting on:?06/06/2024 07:16 AM EST History and Physical Notes * HPI (History of Present Illness) Category Sub-Category Detail Notes Telehealth Location of [facility] rendering services:: {...} [address] [facility] [address] Location of patient:: address listed in demographics [...]
--- OUTSIDE RECORDS SUMMARY | 2024-06-06 07:17 | XMS_ITS | Patient Health Record ---
Author Organization Meño Edwards III, MD Address [address] [place] [address] Care Team Providers Care Dam Worker Name Role Phone Meño Edwards Primary Care Provider Allergies Allergen (clinical drug ingredient) Drug/Non Drug Allergy documented on EMR Reaction Allergy Type Onset Date Status Seasonale Unknown Drug Allergy Active Results Component Value Reference Range Notes XR foot LT min 3V Reviewed date:09/09/2023 07:59:44 PM Interpretation: Performing Lab: Notes/Report: [address] [address] XRay Report Signed Patient: Jacy Goldberg MR#: [id number] [birth year] : 1955 Acct:[id number] Age/Sex: 68 / F ADM Date: 09/07/23 Loc: HO.XRAY Attending Dr: Meño Edwards MD Ordering Physician: Meño Edwards MD Date of Service: 09/07/23 Procedure(s): XR foot LT min 3V Accession Number(s): [id number] cc: Meño Edwards MD EXAMINATION: XR FOOT, LEFT CLINICAL INFORMATION: Pain COMPARISON: Previous x-ray December 2021 TECHNIQUE: AP, lateral, and oblique views of the left foot. FINDINGS: The bones and soft tissues are normal. No fracture. Alignment is anatomic. Joint spaces are maintained. XR/XR foot LT min 3V IMPRESSION: Normal left foot. Dictated By: Tressa Lucero MD Signed By: <Electronically signed by Tressa Lucero MD in OV> 09/07/23 5965 DD/ 162 TD/TT: Workers Compensation Manager: EMILY [address] [address] XRay Report Signed Patient: Shubham Goldberg MR#: [id number] [birth year] : 1955 Acct:[id number] Age/Sex: 68 / F ADM Date: 09/07/23 Loc: HO.XRAY Attending Dr: Meño Edwards MD Ordering Physician: Meño Edwards MD Date of Service: 09/07/23 Procedure(s): XR geovanny t LT min 3V Accession Number(s): [id number] cc: Meño Edwards MD EXAMINATION: XR FOOT, LEFT CLINICAL INFORMATION: Pain COMPARISON: Previous x-ray December 2021 TECHNIQUE: AP, lateral, and oblique views of the left foot. FINDINGS: The bones and soft tissues are normal. No fracture. Alignment is anatomic. Joint spac es are maintained. XR/XR foot LT min 3V IMPRESSION: Normal left foot. Dictated By: Tressa Lucero MD Signed By: <Electronically signed by Tressa Lucero MD in OV> 09/07/23 174 DD/ 25 TD/TT: Workers Compensation Manager: EMILY URINE DIP STICK Reviewed date:04/22/2024 06:31:04 AM Interpretation:Normal Performing Lab: Notes/Report: Normal SG 1.000 1.005 - 1.025 pH 5.0 5.0 - 9.0 DIMITRIS neg Negative - NIT neg Negative - PRO 300 Negative - Trace GLU neg Negative - KET neg Negative - UBG 0.2 0.1 - 1.8 SKYLA neg 0.2 - 1.3 BLD trace Negative - Menstrating no Complete Blood Count Auto Di ff Reviewed date:08/01/2023 05:06:06 AM Interpretation: Performing Lab:[facility], [address] [place] [phone] Notes/Report: White Blood Count 4.8 4.8-10.8 X10*3/uL Red Blood Count 3.32 4.20-5.50 X10*6/uL Hemoglobin 10.5 12.0-16.0 g/dl Hematocrit 33.5 37.0-47.0 % Mean Corpuscular Volume 100.9 80.0-98.0 fL Mean Corpuscular Hemoglobin 31.6 27.0-33.0 pg Mean Corpuscular HGB Conc 31.3 31.0-35.0 g/dl Red Cell Distribution Width 12.2 11.0-16.0 % Platelet Count 113 160-400 X10*3/uL Mean Platelet Volume 11.1 9.4-12.3 fL Neutrophils Percent Auto 66.4 45-73 % Imm Gran Pct Auto 0.2 0.0-0.4 % Lymphocytes Percent Auto 22.5 20-40 % Monocytes Percent Auto 8.4 2-11 % Eosinophils Percent Auto 2.1 0-4 % Basophils Percent Auto 0.4 0-2 % NRBC Pct Auto 0.0 0.0-0.2 /100WBC Neutrophils Absolute Auto 3.2 2.0-8.3 x10*3/uL Imm Gran Abs Auto 0.01 0.00-0.03 X10*3/uL Lymphocytes Absolute Auto 1.1 1.2-4.9 X10*3/uL Monocytes Absolute Auto 0.4 0.1-1.2 X10*3/uL Eosinophils Absolute Auto 0.1 0.0-0.4 X10*3/uL Basophils Absolute Auto 0.0 0.0-0.2 X10*3/uL NRBC Abs Auto 0.000 0.0-0.012 X10*3/uL Comprehensive [place]. Panel Fa st Reviewed date:08/01/2023 05:06:06 AM Interpretation: Performing Lab:[facility], [address] [place] [phone] Notes/Report: Sodium 143 135-145 mmol/L Potassium 5.3 3.3-5.1 mmol/L Chloride 107 96-108 mmol/L Carbon Dioxide 26 22-29 mmol/L Anion Gap 15 12-20 Blood Urea Nitrogen 70 9-16 mg/dL Creatinine 2.96 0.5-1.4 mg/dL Estimated Glomerular Filt Rate 16 NOTE: For -Spanish individuals, multiply the result by 1.210. Chronic Kidney Disease: Estimated GFR < 60 mL/min/1.73m2 Severe Kidney Disease: Estimated GFR < 15 mL/min/1.73m2 Glucose Fasting 91 60-99 mg/dL Calcium 9.3 8.4-10.2 mg/dL Bilirubin Total 0.3 0.0-1.0 mg/dL Aspartate Amino Transferase 57 5-31 U/L Alanine Aminotransferase 55 0-31 U/L Total Protein 7.0 6.5-8.0 g/dL Albumin Level 4.3 3.5-5.0 g/dL Alkaline Phosphatase 82 39-117 U/L Lipid Panel Reviewed date:08/01/2023 05:06:06 AM Interpretation: Performing Lab:[address] [phone] Notes/Report: Triglycerides 84 <150 mg/dL Desirable Triglyceride: less than 150 mg/dL Borderline High Triglyceride 150-199 mg/dL High Triglyceride: 200-499 mg/dL Very High Triglyceride: greater than or equal to 5OO mg/dL Cholesterol 231 <200 mg/dL Desirable Cholesterol: less than 200 mg/dL Borderline High Cholesterol: 200-239 mg/dL High Cholesterol: greater than 239 mg/dL LDL Cholesterol Calculated 122 <100 mg/dL Desirable LDL: less than 100 mg/dL Near Optimal/Above Optimal LDL: 110-129 mg/dL Borderline High LDL: 130-159 mg/dL High LDL: 160-189 mg/dL Very High LDL: greater than or equal to 190 mg/dL HDL Cholesterol 93 >40 mg/dL Desirable HDL: greater than 40 mg/dL Note: This HDL assay may give artificially low results in patients with liver disease. Vitamin D 25-OH Total Reviewed date:08/01/2023 05:06:06 AM Interpretation: Performing Lab:[address] [phone] Notes/Report: Vitamin D 25-OH Total 44.9 >30 ng/mL Health Based Reference Values* < 20 ng/mL Deficient 20-30 ng/mL Insufficient > 30 ng/mL Sufficient *Mariama HARE. N Engl J Med. 2007;357:266-280 Care must be taken in interpreting Vitamin D results from different laboratories and methodologies. Published data demonstrated that results from patients undergoing hemodialysis may show a negative bias when tested with various automated 25-OH vitamin D assays when compared to LC-MS/MS. When testing samples from patients whose predominant form of Vitamin D is Vitamin D2, such as patients receiving Vitamin D2 supplementation, results that are subtherapeutic should be confirmed with another method such as LC-MS/MS. Complete Blood Count Auto Di ff Reviewed date:09/09/2023 07:59:44 PM Interpretation: Performing Lab:[facility], [address] [place] [phone] Notes/Report: White Blood Count 7.3 4.8-10.8 X10*3/uL Red Blood Count 3.59 4.20-5.50 X10*6/uL Hemoglobin 11.3 12.0-16.0 g/dl Hematocrit 35.5 37.0-47.0 % Mean Corpuscular Volume 98.9 80.0-98.0 fL Mean Corpuscular Hemoglobin 31.5 27.0-33.0 pg Mean Corpuscular HGB Conc 31.8 31.0-35.0 g/dl Red Cell Distribution Width 12.2 11.0-16.0 % Platelet Count 161 160-400 X10*3/uL Mean Platelet Volume 11.3 9.4-12.3 fL Neutrophils Percent Auto 78.8 45-73 % Imm Gran Pct Auto 0.4 0.0-0.4 % Lymphocytes Percent Auto 13.7 20-40 % Monocytes Percent Auto 5.8 2-11 % Eosinophils Percent Auto 1.2 0-4 % Basophils Percent Auto 0.1 0-2 % NRBC Pct Auto 0.0 0.0-0.2 /100WBC Neutrophils Absolute Auto 5.7 2.0-8.3 x10*3/uL Imm Gran Abs Auto 0.03 0.00-0.03 X10*3/uL Lymphocytes Absolute Auto 1.0 1.2-4.9 X10*3/uL Monocytes Absolute Auto 0.4 0.1-1.2 X10*3/uL Eosinophils Absolute Auto 0.1 0.0-0.4 X10*3/uL Basophils Absolute Auto 0.0 0.0-0.2 X10*3/uL NRBC Abs Auto 0.000 0.0-0.012 X10*3/uL Electrolytes Reviewed date:09/09/2023 07:59:44 PM Interpretation: Performing Lab:[facility], [address] [place] [phone] Notes/Report: Sodium 145 135-145 mmol/L Potassium 4.8 3.3-5.1 mmol/L Chloride 111 96-108 mmol/L Carbon Dioxide 24 22-29 mmol/L Anion Gap 15 12-20 Blood Urea Nitrogen Reviewed date:09/09/2023 07:59:44 PM Interpretation: Performing Lab:[facility], [address] [place] [phone] Notes/Report: Blood Urea Nitrogen 76 9-16 mg/dL Creatinine Reviewed date:09/09/2023 07:59:44 PM Interpretation: Performing Lab:[facility], [address] [place] [phone] Notes/Report: Creatinine 3.26 0.5-1.4 mg/dL Estimated Glomerular Filt Rate 14 NOTE: For -Spanish individuals, multiply the result by 1.210. Chronic Kidney Disease: Estimated GFR < 60 mL/min/1.73m2 Severe Kidney Disease: Estimated GFR < 15 mL/min/1.73m2 Calcium Reviewed date:09/09/2023 07:59:44 PM Interpretation: Performing Lab:[facility], [address] [place] [phone] Notes/Report: Calcium 9.7 8.4-10.2 mg/dL Phosphorus Reviewed date:09/09/2023 07:59:44 PM Interpretation: Performing Lab:[facility], [address] [place] [phone] Notes/Report: Phosphorus 4.3 2.7-4.5 mg/dL IRON PROFILE Reviewed date:09/09/2023 07:59:44 PM Interpretation: Performing Lab:[facility], [address] [place] [phone] Notes/Report: Iron 75 30-160 mcg/dL Total Iron Binding Capacity 337 228-428 mcg/dL Percent Iron Saturation 22 15-50 % Unsaturated Iron Binding 262 Ferritin Reviewed date:09/09/2023 07:59:44 PM Interpretation: Performing Lab:[facility], [address] [place] [phone] Notes/Report: Ferritin 66 10-250 ng/mL Vitamin D 25-OH Total Reviewed date:09/09/2023 07:59:44 PM Interpretation: Performing Lab:[facility], [address] [place] [phone] Notes/Report: Vitamin D 25-OH Total 43.8 >30 ng/mL Health Based Reference Values* < 20 ng/mL Deficient 20-30 ng/mL Insufficient > 30 ng/mL Sufficient *Mariama HARE. N Engl J Med. 2007;357:266-280 Care must be taken in interpreting Vitamin D results from different laboratories and methodologies. Published data demonstrated that results from patients undergoing hemodialysis may show a negative bias when tested with various automated 25-OH vitamin D assays when compared to LC-MS/MS. When testing samples from patients whose predominant form of Vitamin D is Vitamin D2, such as patients receiving Vitamin D2 supplementation, results that are subtherapeutic should be confirmed with another method such as LC-MS/MS. Parathyroid Hormone Intact Reviewed date:09/09/2023 07:59:44 PM Interpretation: Performing Lab:[facility], [address] [place] [phone] Notes/Report: Parathyroid Hormone Intact 102.8 8.7-77.1 pg/mL MM tomosynthesis screening B I Reviewed date:10/01/2023 07:36:00 PM Interpretation: Performing Lab: Notes/Report: [facility]'[address] [place] [address] Mammography Report Signed Patient: Jacy Goldberg MR#: [id number] 21 : 1955 Acct:[id number] Age/Sex: 68 / F ADM Date: 09/19/23 Loc: HO.MAMMO Attending Dr: Meño Edwards MD Ordering Physician: Meño Edwards MD Results: 1Negativ e Date of Service: 09/19/23 Follow Up: 1 Year From Orig [facility] Mammogram Procedure(s): MM tomosynthesis screening BI Accession Number(s): [id number] cc: Meño Edwards MD EXAMINATION: MM SCREENING DIGITAL BREAST TOMOSYNTHESIS, BILATERAL CLINICAL INFORMATION: Screening. Asymptomatic. COMPARISON: Mammography: This study is compared with prior exams dating back to 2018. TECHNIQUE: Digital breast tomosynthesis is performed in both the craniocaudal and mediolateral oblique views along with computer-aided detection (CAD). Synthesized 2D images are generated from the tomosynthesis. FINDINGS: The breasts are heterogeneously dense, which may obscure small masses (ACR BI-RADS breast composition Category c). There are no significant masses, abnormal calcifications, or other abnormalities. MM/MM tomosynthesis screening BI IMPRESSION: No mammographic evidence of malignancy. ASSESSMENT: BI-RADS BI-RADS 1 - Negative RECOMMENDATION: Routine annual mammography screening. 1 year F/U This examination should not preclude the clinical evaluation of a suspicious palpable abnormality. This patient's information was entered into a reminder system with a target due date for their next mammogram. Dictated By: Yari Byrne MD Signed By: <Electronically signed by Yari Byrne MD in OV> 09/26/23 1638 DD/ 0850 TD/TT: Workers Compensation Manager: [place] [facility] [address] [place] [address] Mammography Report Signed Patient: Shubham Goldberg MR#: [id number] 21 : 1955 Acct:[id number] Age/Sex: 68 / F ADM Date: 09/19/23 Loc: HO.MAMMO Attending Dr: Meño Edwards MD Ordering Physician: Meño Edwards MD Results: 1Negativ e Date of Service: 09/19/23 Follow Up: 1 Year From Orig ina Mammogram Procedure(s): MM tomosynthesis screening BI Accession Number(s): [id number] cc: Meño Edwards MD EXAMINATION: MM SCREENING DIGITAL BREAST TOMOSYNTHESIS, BILATERAL CLINICAL INFORMATION: Screening. Asymptomatic. COMPARISON: Mammography: [facility] is compared with prior exams dating back to 2018. TECHNIQUE: Digital breast tomosynthesis is performed in both the craniocaudal and mediolateral oblique views along with computer-aided detection (CAD). Synthesized 2D image s are generated from the tomosynthesis. FINDINGS: The breasts are heterogeneously dense, which may obscure small masses (ACR BI-RADS breast composition Category c). There are no significant masses, abnormal calcifications, or other abnormalities. MM/MM tomosynthesis screening BI IMPRESSION: No mammographic evidence of malignancy. ASSESSMENT: BI-RADS BI-RADS 1 - Negative RECOMMENDATION: Routine annual mammography screening. 1 year F/U This examination julia uld not preclude the clinical evaluation of a suspicious palpable abnormality. This patient's information was entered into a reminder system with a target due date for their next mammogram. Dictated By: Yari Byrne MD Signed By: <Electronically signed by Yari Byrne MD in OV> 09/26/23 1638 DD/ 0850 TD/TT: Workers Compensation Manager: Complete Blood Count Auto Di ff Reviewed date:02/26/2024 07:28:35 AM Interpretation: Performing Lab:[facility], [address] [place] [phone] Notes/Report: White Blood Count 4.7 4.8-10.8 X10*3/uL Red Blood Count 3.02 4.20-5.50 X10*6/uL Hemoglobin 9.6 12.0-16.0 g/dl Hematocrit 30.6 37.0-47.0 % Mean Corpuscular Volume 101.3 80.0-98.0 fL Mean Corpuscular Hemoglobin 31.8 27.0-33.0 pg Mean Corpuscular HGB Conc 31.4 31.0-35.0 g/dl Red Cell Distribution Width 13.2 11.0-16.0 % Platelet Count 114 160-400 X10*3/uL Mean Platelet Volume 11.0 9.4-12.3 fL Neutrophils Percent Auto 69.4 45-73 % Imm Gran Pct Auto 0.4 0.0-0.4 % Lymphocytes Percent Auto 20.1 20-40 % Monocytes Percent Auto 8.6 2-11 % Eosinophils Percent Auto 1.1 0-4 % Basophils Percent Auto 0.4 0-2 % NRBC Pct Auto 0.0 0.0-0.2 /100WBC Neutrophils Absolute Auto 3.2 2.0-8.3 x10*3/uL Imm Gran Abs Auto 0.02 0.00-0.03 X10*3/uL Lymphocytes Absolute Auto 0.9 1.2-4.9 X10*3/uL Monocytes Absolute Auto 0.4 0.1-1.2 X10*3/uL Eosinophils Absolute Auto 0.1 0.0-0.4 X10*3/uL Basophils Absolute Auto 0.0 0.0-0.2 X10*3/uL NRBC Abs Auto 0.000 0.0-0.012 X10*3/uL Comprehensive Met. Panel Reviewed date:02/26/2024 07:28:35 AM Interpretation: Performing Lab:[facility], [address] [place] [phone] Notes/Report: Sodium 142 135-145 mmol/L Potassium 4.8 3.3-5.1 mmol/L Chloride 108 96-108 mmol/L Carbon Dioxide 23 22-29 mmol/L Anion Gap 16 12-20 Blood Urea Nitrogen 66 9-16 mg/dL Creatinine 3.22 0.5-1.4 mg/dL Estimated Glomerular Filt Rate 14 NOTE: For -Spanish individuals, multiply the result by 1.210. Chronic Kidney Disease: Estimated GFR < 60 mL/min/1.73m2 Severe Kidney Disease: Estimated GFR < 15 mL/min/1.73m2 Glucose Random 88 60-115 mg/dL Calcium 9.3 8.4-10.2 mg/dL Bilirubin Total 0.2 0.0-1.0 mg/dL Aspartate Amino Transferase 33 5-31 U/L Alanine Aminotransferase 28 0-31 U/L Total Protein 6.9 6.5-8.0 g/dL Albumin Level 4.4 3.5-5.0 g/dL Alkaline Phosphatase 85 39-117 U/L Electrolytes Reviewed date:03/26/2024 06:07:59 AM Interpretation: Performing Lab:[facility], [address] [place] [phone] Notes/Report: Sodium 140 135-145 mmol/L Potassium 5.5 3.3-5.1 mmol/L Chloride 110 96-108 mmol/L Carbon Dioxide 21 22-29 mmol/L Anion Gap 15 12-20 Blood Urea Nitrogen Reviewed date:03/26/2024 06:07:59 AM Interpretation: Performing Lab:[facility], [address] [place] [phone] Notes/Report: Blood Urea Nitrogen 63 9-16 mg/dL Creatinine Reviewed date:03/26/2024 06:07:59 AM Interpretation: Performing Lab:[facility], [address] [place] [phone] Notes/Report: Creatinine 3.04 0.5-1.4 mg/dL Estimated Glomerular Filt Rate 15 NOTE: For -Spanish individuals, multiply the result by 1.210. Chronic Kidney Disease: Estimated GFR < 60 mL/min/1.73m2 Severe Kidney Disease: Estimated GFR < 15 mL/min/1.73m2 Creatinine Clearance Urine Reviewed date:03/26/2024 06:07:59 AM Interpretation: Performing Lab:[facility], [address] [place] [phone] Notes/Report: [id number] Creatinine (CrCl) 3.04 0.5-1.4 mg/dL Creatinine Clearance 18.4 85-125 mL/min Creatinine, 24Hr Urine 0.8 1.0-2.0 G/Day Creatinine, mg/dL 40.82 Total Volume 24 Hour Urine 1974 Complete Blood Count Auto Di ff Reviewed date:04/15/2024 07:27:15 AM Interpretation: Performing Lab:[facility], [address] [place] [phone] Notes/Report: White Blood Count 4.2 4.8-10.8 X10*3/uL Red Blood Count 2.99 4.20-5.50 X10*6/uL Hemoglobin 9.6 12.0-16.0 g/dl Hematocrit 30.0 37.0-47.0 % Mean Corpuscular Volume 100.3 80.0-98.0 fL Mean Corpuscular Hemoglobin 32.1 27.0-33.0 pg Mean Corpuscular HGB Conc 32.0 31.0-35.0 g/dl Red Cell Distribution Width 13.6 11.0-16.0 % Platelet Count 139 160-400 X10*3/uL Mean Platelet Volume 11.1 9.4-12.3 fL Neutrophils Percent Auto 62.3 45-73 % Imm Gran Pct Auto 0.2 0.0-0.4 % Lymphocytes Percent Auto 24.5 20-40 % Monocytes Percent Auto 9.0 2-11 % Eosinophils Percent Auto 3.5 0-4 % Basophils Percent Auto 0.5 0-2 % NRBC Pct Auto 0.0 0.0-0.2 /100WBC Neutrophils Absolute Auto 2.6 2.0-8.3 x10*3/uL Imm Gran Abs Auto 0.01 0.00-0.03 X10*3/uL Lymphocytes Absolute Auto 1.0 1.2-4.9 X10*3/uL Monocytes Absolute Auto 0.4 0.1-1.2 X10*3/uL Eosinophils Absolute Auto 0.2 0.0-0.4 X10*3/uL Basophils Absolute Auto 0.0 0.0-0.2 X10*3/uL NRBC Abs Auto 0.000 0.0-0.012 X10*3/uL Comprehensive [place]. Panel Fa st Reviewed date:04/15/2024 07:27:15 AM Interpretation: Performing Lab:[facility], [address] [place] [phone] Notes/Report: Sodium 143 135-145 mmol/L Potassium 4.8 3.3-5.1 mmol/L Chloride 109 96-108 mmol/L Carbon Dioxide 26 22-29 mmol/L Anion Gap 13 12-20 Blood Urea Nitrogen 84 9-16 mg/dL Creatinine 3.13 0.5-1.4 mg/dL Estimated Glomerular Filt Rate 15 NOTE: For -Spanish individuals, multiply the result by 1.210. Chronic Kidney Disease: Estimated GFR < 60 mL/min/1.73m2 Severe Kidney Disease: Estimated GFR < 15 mL/min/1.73m2 Glucose Fasting 98 60-99 mg/dL Calcium 9.8 8.4-10.2 mg/dL Bilirubin Total 0.3 0.0-1.0 mg/dL Aspartate Amino Transferase 44 5-31 U/L Alanine Aminotransferase 37 0-31 U/L Total Protein 6.9 6.5-8.0 g/dL Albumin Level 4.3 3.5-5.0 g/dL Alkaline Phosphatase 111 39-117 U/L Lipid Panel Reviewed date:04/15/2024 07:27:15 AM Interpretation: Performing Lab:[facility], [address] [place] [phone] Notes/Report: Triglycerides 95 <150 mg/dL Desirable Triglyceride: less than 150 mg/dL Borderline High Triglyceride 150-199 mg/dL High Triglyceride: 200-499 mg/dL Very High Triglyceride: greater than or equal to 5OO mg/dL Cholesterol 212 <200 mg/dL Desirable Cholesterol: less than 200 mg/dL Borderline High Cholesterol: 200-239 mg/dL High Cholesterol: greater than 239 mg/dL LDL Cholesterol Calculated 98 <100 mg/dL Desirable LDL: less than 100 mg/dL Near Optimal/Above Optimal LDL: 110-129 mg/dL Borderline High LDL: 130-159 mg/dL High LDL: 160-189 mg/dL Very High LDL: greater than or equal to 190 mg/dL HDL Cholesterol 95 >40 mg/dL Desirable HDL: greater than 40 mg/dL Note: This HDL assay may give artificially low results in patients with liver disease. Electrolytes Reviewed date:06/04/2024 05:33:48 AM Interpretation: Performing Lab:[facility], [address] [place] [phone] Notes/Report: Sodium 142 135-145 mmol/L Potassium 5.1 3.3-5.1 mmol/L Chloride 107 96-108 mmol/L Carbon Dioxide 29 22-29 mmol/L Anion Gap 11 12-20 Blood Urea Nitrogen Reviewed date:06/04/2024 05:33:48 AM Interpretation: Performing Lab:[facility], [address] [place] [phone] Notes/Report: Blood Urea Nitrogen 80 9-16 mg/dL Creatinine Reviewed date:06/04/2024 05:33:48 AM Interpretation: Performing Lab:[facility], [address] [place] [phone] Notes/Report: Creatinine 3.57 0.5-1.4 mg/dL Estimated Glomerular Filt Rate 13 Chronic Kidney Disease: Estimated GFR < 60 mL/min/1.73m2 Severe Kidney Disease: Estimated GFR < 15 mL/min/1.73m2 Reason For Referral Reason left foot pain eval and treat Diagnosis 1 Left foot pain (M79. 672) Referral Organization Meño Edwards III, MD Referring Provider First Name Meño Referring Provider Last Name Grace Referring Provider Speciality Internal M edicine Referred Provider [facility] Kurt Phillip Referred Provider Specialty Podiatry General Notes Michelle Estrella CMA 08/25 04:03:34 PM EDT > I called to make patient appt and was told that patient has to call herself for appt . Pt given contact information and she will call for appt and call our office back with information , StG,Michelle FRANKY 09/08/2023 10:16:57 AM EDT > Pt called she is going to Dr Butt tomorrow 09/09/2023 x ray report faxed to the office Referral Priority Routine Referral Appointment Date 09/09/2023 Medications Medication SIG (Take, Route, Frequency, Duration) Notes Start Date End Date Status Triamcinolone Acetonide 0.1 % External Active Vitamin E Active Calcium + D Active Pulmicort Flexhaler 180 MCG/ACT 2 puffs Inhalation Twice a day October-March Active ProAir HFA 108 (90 Base) MCG/ACT 2 puffs as needed Inhalation every 4 hrs PRN Active Allopurinol 100 MG TAKE 1 TABLET BY MOUTH DAILY Oral Active Sodium Polystyrene Sulfonate - as directed Orally 30 grams per week 03/08/2024 Active amLODIPine Besylate 5 MG 1 1/2 tablet Or ally Once a day 08/04/2023 Active Atorvastatin Calcium 10 MG 1 tablet Orally Once a day 08/04/2023 Active Immunizations Vaccine Route Administration Date Status Comme nts Td (adult) IM Intramuscular 07/10/2012 Administered Influenza Unknown 03/26/2015 Administered COVID PFIZER Unknown 10/01/2021 Administered MMR Unknown 03/27/2015 Administered COVID PFIZER Unknown 05/06/2021 Administered PPV 23 Unknown 03/30/2021 Administered Influenza no Preserv 3 and > Unknown 03/27/2015 Administered SHINGRIX Unknown 02/05/2022 Administered COVID PFIZER Unknown 09/26/2020 Administered COVID PFIZER Unknown 10/19/2020 Administered MMR Unknown 04/30/2015 Administered SHINGRIX Unknown 11/18/2021 Administered Influenza no Preserv 3 and > Unknown 02/18/2016 Administered Influenza no Preserv 3 and > Unknown 03/30/2021 Administered FLuzone HD PF Unknown 04/07/2022 Administered Tetanus and Diphtheria Toxoids Adsorbed IM Intramuscular 07/22/2022 Administered Social History Tobacco Use: Social History Observation Description Date Details (start date - stop date) Never Smoker NA - NA Sex Assigned At : Social History Observation Description Sex Assigned At Female Tobacco Use/Smoking Question Answer Notes Patient is a nonsmoker Additional Findings: Tobacco Non-User Aggressive non-smoker Alcohol Screen Question Answer Notes Did you have a drink containing alcohol in the p ast year? No Points 0 Interpretation Negative Problems Problem Type SNOMED Code ICD Code Onset Dates Problem Status W/U Status Risk Notes Problem 631699111 Underweight (R63.6) Active confirmed Her weight has been stable lately with a body mass index of 17. Problem 815837686 Pancytopenia (D61.818) Active confirmed All 3 cell line s have been diminished. This is likely due to her chronic renal failure. The mean cell volume remains slightly elevated. It is being observed carefully. Problem 582411236 Skin cancer (C44.90) Active confirmed he recently had a basal cell carcinoma removed from the right side of her face and her left arm. There was no sign of residual disease today. Problem 286216920 Thrombocytopeni a (D69.6) Active confirmed She has had no bleeding and is avoiding aspirin. Problem Hyperlipidemia (30098975) Hyperlipidemia, unspecified (E78.5) Active confirmed her lipids have been stable. No blood work is available today. A fasting lipid profile has been ordered. No change was made in her regimen. Problem Uncomplicated asthma (disorder) (147101499) Unspecified asthma, uncomplicated (J45.909) Active confirmed She has had no episodes of asthma recently. Problem 976838621 Neutropenia (D70.9) Active confirmed Her white blood cell count is 4000. The neutrophil population is normal and the lymphocyte count is 1000 which is slightly low. Problem 217446459 Mild intermittent asthma without complication (J45.20) Active confirmed She has had no difficulty with asthma lately. She has an inhaler which she has not been using. Problem 32571221 Cataracts, bilateral (H26.9) Active confirmed She will continue to see the glue clamp operator to resolved these problems. Problem Osteoporosis (57809052) Osteoporosis (M81.0) Active confirmed She has been compliant with his therapy. It was reviewed with her today. Problem 504440389 Osteoarthritis (M19.90) Active confirmed She will continue on current therapy at this time. She will avoid NSAIDs. Problem 909639083 H/O hyperthyroidism (Z86.39) Active confirmed She reports a good appetite. She is consuming adequate calories. She remains underweight. Her thyroid function tests will be checked once again. She has a history of thyroiditis. She is under the care of an proofer prepress. Problem 13380539 Thyroiditis (E06.9) Active confirmed This is not an active problem. She remains under the care of her proofer prepress. She is asymptomatic at this time. Problem Hypercholesterole brian (71515023) Hypercholestero lemia (E78.00) Active confirmed Comprehensive blood work with a fasting lipid profile is being done periodically. No change in her medication was made today. Her lipids have been controlled. Problem 971257357 CKD (chronic kidney disease) stage 3, GFR 30-59 ml/min (N18.3) Active confirmed Her GFR is 24 and her creatinine is 3.22. She has an appointment upcoming with nephrology. She was encouraged to stay hydrated and to be compliant with her medications. Problem 076984227 Macular degeneration of both eyes, unspecified type (H35.30) Active confirmed Problem 704763646 Chronic gout without tophus, unspecified cause, unspecified site (M1A.9XX0) Active confirmed She will continue the colchicine 1 tablet daily until the pain has resolved. Problem Chronic kidney disease stage 3 (disorder) (730055353) Chronic kidney disease, stage 3 unspecified (N18.30) Active confirmed Problem Chronic kidney disease stage 3A (disorder) (669405966) Chronic kidney disease, stage 3a (N18.31) Active confirmed Her BUN is 70.The creatinine is 2.96. She is up-to-date with nephrology and continues on therapy without fail. Problem 17054475 Acute idiopathic gout of left foot (M10.072) Active confirmed She was given a course of colchicine. This was adjusted for renal failure to 1 tablet daily Problem 59898775 Acute idiopathic gout involving toe of left foot (M10.072) Active confirmed The gout has no w resolved and she is on allopurinol. Problem 028915829 Peripheral edema (R60.0) Active confirmed She will continue to hold her amlodipine and use the compression hose and leg elevation. Comprehensive blood work was ordered prior to her decision about diuretics. Vital Signs Heart Rate 65 /min 04/19/2024 Temperature 97.0 degrees Fahrenheit 04/19/2024 Blood pressure diastolic 40 mm Hg 04/19/2024 Height 65 in 04/19/2024 Blood pressure systolic 138 mm Hg 04/19/2024 Weight 109 lbs 04/19/2024 BMI 18.14 kg/m2 04/19/2024 Encounters Encounter Location Date Provider Diagnosis Meño Edwards III, MD [address] [place] [address] [place] [address] 08/04/2023 Meño Edwards Underweight R63.6 ; Pancytopenia D61.818 ; Mild intermittent asthma without complication J45.20 ; Thyroiditis E06.9 ; Chronic kidney disease, stage 3a N18.31 and Osteoporosis M81.0 Meño Edwards III, MD [address] [place] [address] [place] [address] 08/10/2023 Meño Edwards Impacted cerumen, unspecified ear H61.20 Meño Edwards III, MD [address] [place] [address] [place] [address] 09/06/2023 Meño Edwards Acute idiopathic gou t involving toe of left foot M10.072 ; Underweight R63.6 ; Osteoporosis M81.0 ; Osteoarthritis M19.90 and Chronic kidney disease, stage 3a N18.31 Meño Edwards III, MD [address] [place] [address] [place] [address] 09/07/2023 Meño Edwards Left foot pain M79.6 72 ; Underweight R63.6 ; Mild intermittent asthma without complication J45.20 and Chronic kidney disease, stage 3a N18.31 Meño Edwards III, MD [address] [place] [address] [place] [address] 09/13/2023 Meño Edwards Acute idiopathic gou t of left foot M10.072 ; Underweight R63.6 ; Mild intermittent asthma without complication J45.20 and Chronic kidney disease, stage 3a N18.31 Meño Edwards III, MD [address] [place] [address] [place] [address] 09/15/2023 Meño Edwards Chronic gout without tophus, unspecified cause, unspecified site M1A.9XX0 ; Underweight R63.6 ; Osteoporosis M81.0 ; Mild intermittent asthma without complication J45.20 and Chronic kidney disease, stage 3a N18.31 Meño Edwards III, MD [address] [place] [address] [place] [address] 10/20/2023 Meño Edwards Hyperlipidemia, unsp ecified E78.5 ; Underweight R63.6 ; Pancytopenia D61.818 ; Mild intermittent asthma without complication J45.20 ; Thyroiditis E06.9 ; Hypercholesterolemia E78.00 ; Osteoporosis M81.0 ; Chronic kidney disease, stage 3a N18.31 and Acute idiopathic gout involving toe of left foot M10.072 Meño Edwards III, MD [address] [place] [address] [place] [address] 12/15/2023 Meño Edwards Hyperlipidemia, unsp ecified E78.5 ; Underweight R63.6 ; Mild intermittent asthma without complication J45.20 ; CKD (chronic kidney disease) stage 3, GFR 30-59 ml/min N18.3 ; Pancytopenia D61.818 ; Unspecified asthma, uncomplicated J45.909 and Skin cancer C44.90 Meño Edwards III, MD [address] [place] [address] [place] [address] 01/23/2024 Meño Edwards Hyperlipidemia, unsp ecified E78.5 ; Pruritic rash L28.2 ; Underweight R63.6 ; Mild intermittent asthma without complication J45.20 ; Pancytopenia D61.818 ; Thyroiditis E06.9 and Hypercholesterolemia E78.00 Meño Edwards III, MD [address] [place] [address] [place] [address] 01/31/2024 Meño Edwards Hyperlipidemia, unsp ecified E78.5 ; Underweight R63.6 ; Pancytopenia D61.818 ; Mild intermittent asthma without complication J45.20 ; Acute idiopathic gout involving toe of left foot M10.072 ; Chronic kidney disease, stage 3a N18.31 ; Osteoporosis M81.0 ; Hypercholesterolemia E78.00 and Peripheral edema R60.0 Meño Edwards III, MD [address] [place] [address] [place] [address] 02/03/2024 Meño Edwards Hyperlipidemia, unsp ecified E78.5 ; Underweight R63.6 ; Mild intermittent asthma without complication J45.20 ; Chronic kidney disease, stage 3a N18.31 and Peripheral edema R60.0 Meño Edwards III, MD [address] [place] [address] [place] [address] 02/10/2024 Meño Edwards Hyperlipidemia, unsp ecified E78.5 ; Pedal edema R60.0 ; Mild intermittent asthma without complication J45.20 ; Underweight R63.6 ; Acute idiopathic gout involving toe of left foot M10.072 ; Osteoporosis M81.0 and Chronic kidney disease, stage 3a N18.31 Meño Edwards III, MD [address] [place] [address] [place] [address] 04/19/2024 Meño Edwards Hyperlipidemia, unsp ecified E78.5 ; CKD (chronic kidney disease) stage 3, GFR 30-59 ml/min N18.3 ; Pancytopenia D61.818 ; H/O hyperthyroidism Z86.39 ; Hypercholesterolemia E78.00 ; Neutropenia D70.9 ; Underweight R63.6 ; Mild intermittent asthma without complication J45.20 and Acute idiopathic gout involving toe of left foot M10.072 Meño Edwards III, MD [address] [place] [address] [place] [address] 09/09/2023 Meño Edwards III, MD [address] [place] [address] [place] [address] 09/19/2023 Meño Edwards III, MD [address] [place] [address] [place] [address] 12/22/2023 Meño Edwards Assessments Encounter Date Diagnosis (ICD Code) Assessment Notes T reatment Notes Treatment Clinical Notes 08/04/2023 Underweight (ICD-10 - R63.6) Her weight has been stable at 106 pounds with a body mass index is 17.5. We discussed nutrition and diet today. 08/04/2023 Pancytopenia (ICD-10 - D61.818) Her blood work is stable at this time. She has had no bleeding or infections. The values will be observed. 09/06/2023 Underweight (ICD-10 - R63.6) Her weight has been stable at 106 pounds with a body mass index is 17.5. We discussed nutrition and diet today. 09/06/2023 Acute idiopathic gou t involving toe of left foot (ICD-10 - M10.072) She will be seen in the office tomorrow. It is unusual that gout would not respond to prednisone in a week. Appropriate evaluation will be done after she is seen. 09/07/2023 Underweight (ICD-10 - R63.6) Her weight has been stable at 106 pounds with a body mass index is 17.5. We discussed nutrition and diet today. 09/07/2023 Left foot pain (ICD- 10 - M79.672) Clinically the appearance is that of Dr. she had no response to prednisone and has been a week now. She will see a slab grinder. 09/13/2023 Underweight (ICD-10 - R63.6) Her weight has been stable at 106 pounds with a body mass index is 17.5. We discussed nutrition and diet today. 09/13/2023 Acute idiopathic gou t of left foot (ICD-10 - M10.072) She was given a course of colchicine. This was adjusted for renal failure to 1 tablet daily 09/15/2023 Underweight (ICD-10 - R63.6) Her weight has been stable at 106 pounds with a body mass index is 17.5. We discussed nutrition and diet today. 09/15/2023 Chronic gout without tophus, unspecified cause, unspecified site (ICD-10 - M1A.9XX0) She will continue the colchicine 1 tablet daily until the pain has resolved. 10/20/2023 Underweight (ICD-10 - R63.6) 10/20/2023 Hyperlipidemia, unspecified (ICD-10 - E78.5) Total cholesterol is elevated at 231 but the HDL is 93. He was encouraged to consume a high-protein high-calorie low animal fat diet. She will continue to see nephrology 12/15/2023 Underweight (ICD-10 - R63.6) Her weight has been stable at 106 pounds with a body mass index is 17.5. We discussed nutrition and diet today. 12/15/2023 Hyperlipidemia, unspecified (ICD-10 - E78.5) her lipids have been stable. No blood work is available today. A fasting lipid profile has been ordered. No change was made in her regimen. 01/23/2024 Hyperlipidemia, unspecified (ICD-10 - E78.5) her lipids have been stable. No blood work is available today. A fasting lipid profile has been ordered. No change was made in her regimen. 01/23/2024 Pruritic rash (ICD-1 0 - L28.2) The cause is unclear. Current therapy was continued. If it does not resolve she will see dermatology. 01/31/2024 Underweight (ICD-10 - R63.6) Her weight has been stable lately with a body mass index of 17. 01/31/2024 Hyperlipidemia, unspecified (ICD-10 - E78.5) her lipids have been stable. No blood work is available today. A fasting lipid profile has been ordered. No change was made in her regimen. 02/03/2024 Underweight (ICD-10 - R63.6) Her weight has been stable lately with a body mass index of 17. 02/03/2024 Hyperlipidemia, unspecified (ICD-10 - E78.5) No change in her regimen was made today. She will have periodic evaluation of a fasting lipid profile. 02/10/2024 Hyperlipidemia, unspecified (ICD-10 - E78.5) her lipids have been stable. No blood work is available today. A fasting lipid profile has been ordered. No change was made in her regimen. 02/10/2024 Pedal edema (ICD-10 - R60.0) She will finish and then stop the diuretic. She will continue to use compression hose. Follow-up visit was arranged. 04/19/2024 Hyperlipidemia, unspecified (ICD-10 - E78.5) her [...] and to be compliant with her medications. 08/04/2023 Mild intermittent as thma without complication (ICD-10 - J45.20) She has had no difficulty with asthma lately. She has an inhaler which she has not been using. 08/10/2023 Impacted cerumen, unspecified ear (ICD-10 - H61.20) 09/06/2023 Osteoporosis (ICD-10 - M81.0) She has been compliant with his therapy. It was reviewed with her today. 09/07/2023 Mild intermittent as thma without complication (ICD-10 - J45.20) She has had no difficulty with asthma lately. She has an inhaler which she has not been using. 09/13/2023 Mild intermittent as thma without complication (ICD-10 - J45.20) She has had no difficulty with asthma lately. She has an inhaler which she has not been using. 09/15/2023 Osteoporosis (ICD-10 - M81.0) She has been compliant with his therapy. It was reviewed with her today. 10/20/2023 Pancytopenia (ICD-10 - D61.818) She continues to have the mild anemia of renal failure but her white blood cell count and platelet count are now normal. 12/15/2023 Mild intermittent as thma without complication (ICD-10 - J45.20) She has had no difficulty with asthma lately. She has an inhaler which she has not been using. 01/23/2024 Underweight (ICD-10 - R63.6) Her weight has been stable at 106 pounds with a body mass index is 17.5. We discussed nutrition and diet today. 01/31/2024 Pancytopenia (ICD-10 - D61.818) She continues to have the mild anemia of renal failure but her white blood cell count and platelet count are now normal. 02/03/2024 Mild intermittent as thma without complication (ICD-10 - J45.20) She has had no difficulty with asthma lately. She has an inhaler which she has not been using. 02/10/2024 Mild intermittent as thma without complication (ICD-10 - J45.20) She has had no difficulty with asthma lately. She has an inhaler which she has not been using. 04/19/2024 Pancytopenia (ICD-10 - D61.818) All 3 cell lines have been diminished. This is likely due to her chronic renal failure. The mean cell volume remains slightly elevated. It is being observed carefully. 08/04/2023 Thyroiditis (ICD-10 - E06.9) This is not an active problem. She remains under the care of her proofer prepress. She is asymptomatic at this time. 09/06/2023 Osteoarthritis (ICD- 10 - M19.90) She will continue on current therapy at this time. She will avoid NSAIDs. 09/07/2023 Chronic kidney disea se, stage 3a (ICD-10 - N18.31) Her BUN is 53, which is an improvement. The creatinine is 2.59 which is an improvement from 2.7. She is up-to-date with nephrology and continues on therapy without fail. 09/13/2023 Chronic kidney disea se, stage 3a (ICD-10 - N18.31) Her BUN is 53, which is an improvement. The creatinine is 2.59 which is an improvement from 2.7. She is up-to-date with nephrology and continues on therapy without fail. 09/15/2023 Mild intermittent as thma without complication (ICD-10 - J45.20) She has had no difficulty with asthma lately. She has an inhaler which she has not been using. 10/20/2023 Mild intermittent as thma without complication (ICD-10 - J45.20) She has had no difficulty with asthma lately. She has an inhaler which she has not been using. 12/15/2023 CKD (chronic kidney disease) stage 3, GFR 30-59 ml/min (ICD-10 - N18.3) Her BUN is higher at 72 and her creatinine is 2.35. She has an appointment upcoming with nephrology. She was encouraged to stay hydrated and to be compliant with her medications. 01/23/2024 Mild intermittent as thma without complication (ICD-10 - J45.20) She has had no difficulty with asthma lately. She has an inhaler which she has not been using. 01/31/2024 Mild intermittent as thma without complication (ICD-10 - J45.20) She has had no difficulty with asthma lately. She has an inhaler which she has not been using. 02/03/2024 Chronic kidney disea se, stage 3a (ICD-10 - N18.31) Her BUN is 70.The creatinine is 2.96. She is up-to-date with nephrology and continues on therapy without fail. 02/10/2024 Underweight (ICD-10 - R63.6) Her weight has been stable lately with a body mass index of 17. 04/19/2024 H/O hyperthyroidism (ICD-10 - Z86.39) She reports a good appetite. She is consuming adequate calories. She remains underweight. Her thyroid function tests will be checked once again. She has a history of thyroiditis. She is under the care of an proofer prepress. 08/04/2023 Chronic kidney disea se, stage 3a (ICD-10 - N18.31) Her BUN is 53, which is an improvement. The creatinine is 2.59 which is an improvement from 2.7. She is up-to-date with nephrology and continues on therapy without fail. 09/06/2023 Chronic kidney disea se, stage 3a (ICD-10 - N18.31) Her BUN is 53, which is an improvement. The creatinine is 2.59 which is an improvement from 2.7. She is up-to-date with nephrology and continues on therapy without fail. 09/15/2023 Chronic kidney disea se, stage 3a (ICD-10 - N18.31) Her BUN is 53, which is an improvement. The creatinine is 2.59 which is an improvement from 2.7. She is up-to-date with nephrology and continues on therapy without fail. 10/20/2023 Thyroiditis (ICD-10 - E06.9) This is not an active problem. She remains under the care of her proofer prepress. She is asymptomatic at this time. 12/15/2023 Pancytopenia (ICD-10 - D61.818) She continues to have the mild anemia of renal failure but her white blood cell count and platelet count are now normal. 01/23/2024 Pancytopenia (ICD-10 - D61.818) She continues to have the mild anemia of renal failure but her white blood cell count and platelet count are now normal. 01/31/2024 Acute idiopathic gou t involving toe of left foot (ICD-10 - M10.072) The gout has now resolved and she is on allopurinol. 02/03/2024 Peripheral edema (IC D-10 - R60.0) She will continue to hold her amlodipine and use the compression hose and leg elevation. Comprehensive blood work was ordered prior to her decision about diuretics. 02/10/2024 Acute idiopathic gou t involving toe of left foot (ICD-10 - M10.072) The gout has now resolved and she is on allopurinol. 04/19/2024 Hypercholesterolemia (ICD-10 - E78.00) Comprehensive blood work with a fasting lipid profile is being done periodically. No change in her medication was made today. Her lipids have been controlled. 08/04/2023 Osteoporosis (ICD-10 - M81.0) She has been compliant with his therapy. It was reviewed with her today. 10/20/2023 Hypercholesterolemia (ICD-10 - E78.00) Her lipids will be followed carefully. They're barely out of range. 12/15/2023 Unspecified asthma, uncomplicated (ICD-10 - J45.909) She has had no episodes of asthma recently. 01/23/2024 Thyroiditis (ICD-10 - E06.9) This is not an active problem. She remains under the care of her proofer prepress. She is asymptomatic at this time. 01/31/2024 Chronic kidney disea se, stage 3a (ICD-10 - N18.31) Her BUN is 70.The creatinine is 2.96. She is up-to-date with nephrology and continues on therapy without fail. 02/10/2024 Osteoporosis (ICD-10 - M81.0) She has been compliant with his therapy. It was reviewed with her today. 04/19/2024 Neutropenia (ICD-10 - D70.9) Her white blood cell count is 4000. The neutrophil population is normal and the lymphocyte count is 1000 which is slightly low. 10/20/2023 Osteoporosis (ICD-10 - M81.0) She has been compliant with his therapy. It was reviewed with her today. 12/15/2023 Skin cancer (ICD-10 - C44.90) he recently had a basal cell carcinoma removed from the right side of her face and her left arm. There was no sign of residual disease today. 01/23/2024 Hypercholesterolemia (ICD-10 - E78.00) Her lipids will be followed carefully. They're barely out of range. 01/31/2024 Osteoporosis (ICD-10 - M81.0) She has been compliant with his therapy. It was reviewed with her today. 02/10/2024 Chronic kidney disea se, stage 3a (ICD-10 - N18.31) Her BUN is 70.The creatinine is 2.96. She is up-to-date with nephrology and continues on therapy without fail. 04/19/2024 Underweight (ICD-10 - R63.6) Her weight has been stable lately with a body mass index of 17. 10/20/2023 Chronic kidney disea se, stage 3a (ICD-10 - N18.31) Her BUN is 70.The creatinine is 2.96. She is up-to-date with nephrology and continues on therapy without fail. 01/31/2024 Hypercholesterolemia (ICD-10 - E78.00) Her lipids will be followed carefully. They're barely out of range. 04/19/2024 Mild intermittent as thma without complication (ICD-10 - J45.20) She has had no difficulty with asthma lately. She has an inhaler which she has not been using. 10/20/2023 Acute idiopathic gou t involving toe of left foot (ICD-10 - M10.072) The gout has now resolved and she is on allopurinol. 01/31/2024 Peripheral edema (IC D-10 - R60.0) She will continue to hold her amlodipine and use the compression hose and leg elevation. Comprehensive blood work was ordered prior to her decision about diuretics. 04/19/2024 Acute idiopathic gou t involving toe of left foot (ICD-10 - M10.072) The gout has now resolved and she is on allopurinol. Plan Of Treatment Pending Test Test Name Order Date PROFILE, FASTING (COMPREHENSIVE METABOLI C) 04/19/2024 PROFILE, FASTING (COMPREHENSIVE METABOLI C) 01/12/2021 PROFILE, FASTING (COMPREHENSIVE METABOLI C) 10/20/2023 PROFILE, FASTING (COMPREHENSIVE METABOLI C) 08/14/2021 PROFILE, FASTING (COMPREHENSIVE METABOLI C) 10/07/2022 PROFILE, FASTING (COMPREHENSIVE METABOLI C) 04/07/2023 PROFILE, FASTING (COMPREHENSIVE METABOLI C) 10/20/2020 PROFILE, FASTING (COMPREHENSIVE METABOLI C) 04/01/2022 PROFILE, FASTING (COMPREHENSIVE METABOLI C) 12/13/2017 PROFILE, FASTING (COMPREHENSIVE METABOLI C) 04/13/2021 PROFILE, FASTING (COMPREHENSIVE METABOLI C) 11/11/2021 PROFILE, FASTING (COMPREHENSIVE METABOLI C) 01/14/2023 PROFILE, RANDOM (COMPREHENSIVE METABOLIC ) 01/31/2024 LIPID PANEL 01/14/2023 LIPID PANEL 01/12/2021 LIPID PANEL 10/07/2022 LIPID PANEL 10/20/2020 LIPID PANEL 04/01/2022 LIPID PANEL 12/13/2017 LIPID PANEL 11/11/2021 GGT 10/20/2020 FREE T4 (FT4) 10/11/2017 TSH (THYROID STIMULATING HORMONE) 2023 TSH (THYROID STIMULATING HORMONE) 2017 CBC w DIFF 11/11/2021 CBC w DIFF 01/14/2023 CBC w DIFF 08/14/2021 CBC w DIFF 04/19/2024 CBC w DIFF 01/12/2021 CBC w DIFF 04/07/2023 CBC w DIFF 10/07/2022 CBC w DIFF 04/13/2021 CBC w DIFF 04/01/2022 CBC w DIFF 12/13/2017 CBC w DIFF 10/20/2020 SED RATE (ESR) 11/11/2021 BONE DENSITY DEXA 05/19/2020 BONE DENSITY DEXA 06/05/2020 BONE DENSITY DEXA 12/07/2021 US CAROTID BILATERAL DOPPLER 07/19/2018 VITAMIN D 25-OH TOTAL 04/01/2022 CBC WITH AUTO DIFF 10/20/2023 CBC WITH AUTO DIFF 01/31/2024 Lipid Panel 04/13/2021 Lipid Panel 10/20/2023 Lipid Panel 08/14/2021 Lipid Panel 04/19/2024 Lipid Panel 04/07/2023 Vitamin D 25-OH Total 04/07/2023 Free T4 (Free Thyroxine) 04/19/2024 Next Appt Details Provider Name:Meño Edwards, 08/23/2024 09:30:00 AM, [address] [place] [address] [address], [place], [address], Provider Name:Meño Edwards, 04/22/2025 09:30:00 AM, [address] [place] [address] [address] [place], [place], [address], Insurance Providers Payer Name Payer Address Payer Phone Subscriber Number Group Number Insured Name Patient Relationship to Insured Coverage Start Date Coverage End Date MEDICARE NGS [address] [place] [phone] [id number] Jacy Goldberg Self - patient is the insured [facility] [address] [place], [place] [id number] Jacy Goldberg Self - patient is the insured Medical (General) History Medical History History ICD Code degenerative arthritis of the cervical s pine spine asthma osteoarthritis hemorhoids thrombocytopenia cataracts last bilateral mammogram 12/18/2012 @ [facility] R&I anemia hyperthyroid abnormal renal function Surgical History Surgery Date(Month/Year) wisdom teeth extraction tonsillectomy septum repair [id number] right cataract surgery 2011 colonoscopy, adenomatous polyp 2004 colonoscopy, wnl 2008 biopsy on left index finger 09/2018 Basal Cell removed, Left arm 01/10/2023 No history Hospitalization History Reason Date(Month/Year) No history
--- OUTSIDE RECORDS SUMMARY | 2024-06-06 07:17 | XMS_ITS ---
Author Organization [facility] Address [address] [facility] [place] [address] Care Team Providers Care Teller Head Name Role Phone Meño Edwards MD Primary Care Provider Unavailab London Braswell Unavailable [phone] Vin Quevedo Unavailable [phone] REASON FOR VISIT Swollen ft/ pain Encounters Encounter [facility] Date [facility] [address] [address] 09/08/2023 Vin Quevedo Plan Of Treatment No Information Progress Notes * Jacy DOMINIQUE SDOB: [birth year] (68 yo F)Acc No.[id number]:09/08/2023 Patient:?Jacy Dominique :1955???Age:68 Y???Sex:Female Address:[address] [place], [address] * true * Date:? Generated for Deepikai brent/Ngoc/eTransmitting on:?06/06/2024 07:17 AM EST
--- OUTSIDE RECORDS SUMMARY | 2024-06-06 07:18 | XMS_ITS | Data Portability ---
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 Plan of Treatment Reminders Order Date Submit Date Provider Last Modified By Organization Details Last Modified Time Details Appointments None recorded. Lab rapid SARS CoV 2 Ag, QL IA, respiratory specimen 2019 020 In-Office Order, Internal Use Only DO Not Attach Compendium DO Not Attach Compendium, Do Not Delete/merge, [id number] 15:44:46 rapid SARS CoV 2 Ag, QL IA, respiratory specimen 2019 020 [email or web address] In-Office Order, Internal Use Only DO Not Attach Compendium DO Not Attach Compendium, Do Not Delete/merge, [id number] 11:45:25 SARS coronavirus RNA, qual, PCR, unspecified specimen 2020 021 [email or web address] 5 In-Office Order, Internal Use Only DO Not Attach Compendium DO Not Attach Compendium, Do Not Delete/merge, [id number] 08:40:48 rapid SARS CoV 2 Ag, QL IA, respiratory specimen 2023 024 In-Office Order, Internal Use Only DO Not Attach Compendium DO Not Attach Compendium, Do Not Delete/merge, [id number] 08:11:31 rapid flu (A+B) 2023 024 In-Office Order, Internal Use Only DO Not Attach Compendium DO Not Attach Compendium, Do Not Delete/merge, [id number] 08:11:32 Referral None recorded. Procedures pulse oximetry (PROC) 2019 020 In-Office Order, Internal Use Only DO Not Attach Compendium DO Not Attach Compendium, Do Not Delete/merge, [id number] 0 16:31:34 pulse oximetry (PROC) 2019 020 [email or web address] 5 In-Office Order, Internal Use Only DO Not Attach Compendium DO Not Attach Compendium, Do Not Delete/merge, [id number] 0 11:45:25 pulse oximetry (PROC) 2020 021 [email or web address] 5 In-Office Order, Internal Use Only DO Not Attach Compendium DO Not Attach Compendium, Do Not Delete/merge, [id number] 1 08:40:48 cerumen removal (PROC) 2023 024 [email or web address] In-Office Order, Internal Use Only DO Not Attach Compendium DO Not Attach Compendium, Do Not Delete/merge, [id number] 07:23:24 Surgeries None recorded. Imaging None recorded. Medication Orders azelastine 137 mcg (0.1 %) nasal spray 2023 024 BISMARK Not available 4 08:11:36 prednisone 10 mg tablet 2023 024 BISMARK Not available 4 08:11:36 Augmentin 875 mg-125 mg tablet 2023 024 BISMARK Not available 4 08:11:35 Debrox 6.5 % ear drops 2023 024 BISMARK Not available 4 08:11:34 Patient TargetsNo targets recorded. Patient Instructions Encounter Date Encounter Id Patient Instructions Last Modified By Organization Details Last Modified Time 09/22/2020 [id number] learning about healthy weight [email or web address] Not available 09/22/2020 08:40:48 body mass index: care instructions [email or web address] Not available 09/22/2020 08:40:48 eating healthy foods: care instructions [email or web address] Not available 09/22/2020 08:40:48 9 things to do i f you've been exposed to covid-19 [email or web address] Not available 09/22/2020 08:40:48 12/23/2023 [id number] Acute Sinusitis: Care Instructions Not available 12/23/2023 08:11:27 earwax blockage: care instructions Not available 12/23/2023 08:11:27 After performing a Medical Screening Examination, I estimate there is LOW risk for ACUTE CORONARY SYNDROME, RESPIRATORY FAILURE, SEPSIS OR MENINGITIS, thus I consider the discharge disposition reasonable. The patient and I have discussed the diagnosis and risks, and we agree with discharging home with close follow-up. We also discussed returning to the Office immediately if new or worsening symptoms occur. We have discussed the symptoms which are most concerning (e.g., changing or worsening pain, trouble swallowing or breathing, neck stiffness, fever) that necessitate immediate return. After performing a Medical Screening Examination, I estimate there is LOW risk for ACUTE GLAUCOMA, TEMPORAL ARTERITIS, MENINGITIS, INTRACRANIAL HEMORRHAGE, or ISCHEMIC STROKE thus I consider the discharge disposition reasonable. The patient and I have discussed the diagnosis and risks, and we agree with discharging home with close follow-up with the understanding that symptoms and presentations can change. We also discussed returning to the Office immediately if new or worsening symptoms occur. We have discussed the symptoms which are most concerning (e.g., changing or worsening symptoms, new numbness or weakness, vomiting, fever) that necessitate immediate return. After performing a Medical Screening Examination, I estimate there is LOW risk for ACUTE GLAUCOMA, TEMPORAL ARTERITIS, DEEP SPACE INFECTION (e.g., MACEY'S ANGINA OR RETROPHARYNGEAL ABSCESS), MENINGITIS, INTRACRANIAL HEMORRHAGE, AIRWAY COMPROMISE, MASTO? IDITIS, or ISCHEMIC STROKE thus I consider the discharge disposition reasonable. The patient and I have discussed the diagnosis and risks, and we agree with discharging home with close follow-up with the understanding that symptoms and presentations can change. We also discussed returning to the Office immediately or going directly to the ED if new or acutely ? worsening symptoms occur. We have discussed the symptoms which are most concerning (e.g., changing or worsening symptoms, new numbness or weakness, vomiting, fever) that necessitate immediate presentation to the ED. Not available 12/23/2023 08:11:53 Reason for Referral None Reported. Results Created Date Observation Date Name Description Value Unit Range Abnormal Flag Note LastModifiedBy Organization Detail LastModifiedTime 09/22/2020 pulse oxime try (PROC ) pulse oximetry 99% room air Not Available In-Office Order Internal Use Only DO Not Attach Compendium DO Not Attach Compendium, Do Not Delete/merge, [id number] 09/22/2020 08:20:07 05/27/2020 pulse oxime try (PROC ) pulse oximetry 99% room air Not Available In-Office Order Internal Use Only DO Not Attach Compendium DO Not Attach Compendium, Do Not Delete/merge, [id number] 05/27/2020 15:12:33 05/27/2020 rapid SARS CoV 2 Ag, QL IA, respi rator y speci men RAPID Nasal Covid negati ve Not Available In-Office Order Internal Use Only DO Not Attach Compendium DO Not Attach Compendium, Do Not Delete/merge, [id number] 05/27/2020 15:12:31 06/13/20 20 06/13/2020 rapid SARS CoV 2 Ag, QL IA, respi rator y speci men RAPID Nasal Covid negati ve Not Available In-Office Order Internal Use Only DO Not Attach Compendium DO Not Attach Compendium, Do Not Delete/merge, [id number] 06/13/2020 10:52:21 06/13/20 20 06/13/2020 pulse oxime try (PROC ) pulse oximetry 98% room air Not Available In-Office Order Internal Use Only DO Not Attach Compendium DO Not Attach Compendium, Do Not Delete/merge, [id number] 06/13/2020 10:52:23 09/23/19 21 09/22/2020 SARS coron aviru s RNA, qual, PCR, unspe cifie d speci men RAPID Bowles PCR COVID/Nasal negati ve Not Available In-Office Order Internal Use Only DO Not Attach Compendium DO Not Attach Compendium, Do Not Delete/merge, [id number] 09/22/2020 08:20:30 12/23/19 24 12/23/2023 rapid flu (A+B) Flu A negati ve Not Available In-Office Order Internal Use Only DO Not Attach Compendium DO Not Attach Compendium, Do Not Delete/merge, [id number] 12/23/2023 07:26:42 12/23/1912/23/2023 rapid flu (A+B) Flu B negati ve Not Available In-Office Order Internal Use Only DO Not Attach Compendium DO Not Attach Compendium, Do Not Delete/merge, [id number] 12/23/2023 07:26:42 12/23/19 24 12/23/2023 rapid SARS CoV 2 Ag, QL IA, respi rator y speci men RAPID Nasal Covid negati ve Not Available In-Office Order Internal Use Only DO Not Attach Compendium DO Not Attach Compendium, Do Not Delete/merge, [id number] 12/23/2023 07:26:23 Result Notes None recorded. Problems No Known Problems Procedures Surgical History Date Name Laterality Status Provider Name and Address Organization Details Recorded Time 02/28/20 19 Date of [facility]amm[facility] [place] [facility] 12/23/2023 07:23:34 03/09/20 18 Date of Last Pap Smear [facility] [place] [facility] 12/23/2023 07:23:34 Cataract Surgery [facility] [place] [facility] 12/23/2023 07:23:46 Colonoscopy [facility] [place] [facility] 12/23/2023 07:23:46 LEEP [facility] [place] [facility] 12/23/2023 07:23:46 Septoplasty completed [facility] [place] [facility] 12/23/2023 07:23:46 Tonsillectomy completed [facility] [place] [facility] 12/23/2023 07:23:46 Adenoid Surgery completed [facility] - [facility] 12/23/2023 07:23:46 Imaging Results None recorded. Procedure Notes None recorded. Medical Equipment None Reported. Allergies No known drug allergies Medications Name Sig Start Date Stop Date Status Note LastModified by Organization Details LastModified Time methocarbamol 500 mg tablet TAKE 2 TABLETS BY MOUTH FOUR TIMES DAILY FOR 3 DAYS active Not Available Not Available No t Available prednisone 10 mg tablet TAKE 2 TABLETS BY MOUTH EVERY DAY WITH MEALS FOR 5 DAYS active Not Available Not Available No t Available atorvastatin 10 mg tablet TAKE 1 TABLET BY MOUTH EVERY DAY active Not Available Not Available No t Available prednisone 20 mg tablet TAKE 1 TABLET BY MOUTH ONCE DAILY active Not Available Not Available No t Available prednisone 5 mg tablet TAKE 1 TABLET BY MOUTH ONCE DAILY active Not Available Not Available No t Available Debrox 6.5 % ear drops INSTILL 5 DROPS INTO AFFECTED EAR(S) BY OTIC ROUTE 2 TIMES PER DAY 2023 active Not Available Not Available Not Avai lable amlodipine 2.5 mg tablet active Not Available Not Available No t Available amlodipine 5 mg tablet TAKE 1 AND 1/2 TABLETS BY MOUTH EVERY DAY active Not Available Not Available No t Available allopurinol 100 mg tablet TAKE 2 TABLETS BY MOUTH DAILY active Not Available Not Available No t Available triamcinolone acetonide 0.1 % topical cream APPLY TWICE DAILY TO ITCHY RASH OF LEGS UP TO 2 WEEKS ON THEN 1 WEEK OFF. REPEAT NEEDED. AVOID FACE OR BODY FOLDS. active Not Available Not Available No t Available diclofenac sodium 75 mg tablet,delayed release TAKE 1 TABLET BY MOUTH TWICE DAILY active Not Available Not Available No t Available azelastine 137 mcg (0.1 %) nasal spray USE 2 SPRAYS IN EACH NOSTRIL TWICE DAILY NEEDED active Not Available Not Available No t Available albuterol sulfate HFA 90 mcg/actuation aerosol inhaler INHALE 2 PUFFS BY MOUTH EVERY 4 HOURS NEEDED active Not Available Not Available No t Available colchicine 0.6 mg tablet TAKE 1 TABLET BY MOUTH ONCE DAILY FOR 10 DAYS active Not Available Not Available No t Available amoxicillin 875 mg-potassium clavulanate 125 mg tablet TAKE 1 TABLET BY MOUTH EVERY 12 HOURS WITH MEALS FOR 7 DAYS active Not Available Not Available No t Available Pulmicort Flexhaler 180 mcg/actuation breath activated INHALE 2 PUFFS BY MOUTH TWICE DAILY active Not Available Not Available No t Available Vitals Date Recorded Body height Body mass index (BMI) Body weight Heart rate Body temperature Oxygen saturation Oxygen saturation in Arterial blood by Pulse oximetry Systolic blood pressure Diastolic blood pressure Provider Name and Address Organization Details Last Updated DateTime 0 162.56 cm 15.8 kg/m2 77206.5 g 62 /min 97.2 [degF] 99 % 99 % 152 mm[Hg] 49 mm[Hg] Lorrie Lara [facility] 0 16:30:34 Date Recorded Body height Body mass index (BMI) Body weight Heart rate Body temperature Oxygen saturation Oxygen saturation in Arterial blood by Pulse oximetry Provider Name and Address Organization Details Last Updated DateTime 0 162.56 cm 16 kg/m2 34362.0 9 g 64 /min 97.9 [degF] 98 % 98 % Nani HutchisonYunior [place] - [facility] 0 10:51:05 Date Recorded Body height Body mass index (BMI) Body weight Heart rate Oxygen saturation Oxygen saturation in Arterial blood by Pulse oximetry Body temperature Provider Name and Address Organization Details Last Updated DateTime 1 162.56 cm 17.2 kg/m2 40555.2 4 g 71 /min 99 % 99 % 97.9 [degF] Nani NolbertotommieMil [place] - [facility] 1 08:18:56 Date Recorded Body height Body mass index (BMI) Body weight Heart rate Body temperature Oxygen saturation Oxygen saturation in Arterial blood by Pulse oximetry Systolic blood pressure Diastolic blood pressure Provider Name and Address Organization Details Last Updated DateTime 4 162.56 cm 17.7 kg/m2 02797.7 3 g 85 /min 97.5 [degF] 99 % 99 % 117 mm[Hg] 76 mm[Hg] Gregorio Manngladys [place] - [facility] 4 07:23:08 Social History Question Answer Notes LastModified by Organizat ion Details LastModified Time Tobacco Smoking Status Never Smoker Gregorio [facility] [place] - [facility] 12/23/2023 07:23:42 Do You Have An Advance Directive? No Information not available 12/23/2023 What Is Your Level Of Alcohol Consumption? Occasional Information not available 12/23/2023 What Is Your Level Of Caffeine Consumption? None Information not available 12/23/2023 How Much Tobacco Do You Chew? None Information not available 12/23/2023 In The 14 Days Before Symptom Onset, Have You Had Close Contact With A [facility] COVID-19 While That Case Was Ill? No Information not available 05/27/2020 If Patient Spent Time In [facility] - Does The Patient Live In [facility]? No Information not available 05/27/2020 In The 14 Days Before Symptom Onset, Have You Had Close Contact With A Person Who Is Under Investigation For COVID-19 While That Person Was Ill? No Information not available 05/27/2020 In The 14 Days Before Symptom Onset, Did The Patient Spend Time In [facility]? No Information not available 05/27/2020 Have You Been To An Area Known To Be High Risk For COVID-19? No Information not available 05/27/2020 What Type Of Diet Are You Following? REGULAR Information not available 12/23/2023 Which Illicit Or Recreational Drugs Have You Used? None Information not available 12/23/2023 Education Post Graduate Information not available 12/23/2023 What Is Your Occupation? Retired Information not available 12/23/2023 Marital Status Informatio n not available 12/23/2023 What Was The Date Of Your Most Recent Tobacco Screening? 09/22/2020 [email or web address] Information not available 09/22/2020 How Much Tobacco Do You Smoke? No Information not available 12/23/2023 General Stress Level Medium Information not available 12/23/2023 Sex: Unknown Functional Status Question Answer Note LastModified by Organization D etails LastModified Time What is your exercise level? Moderate Information not available 12/23/2023 Mental Status None recorded. Family History Relationship Description Onset Age of this Age Resolved Age Notes LastModified by Organization Details LastModified Time Mother Diabetes mellitus pt. added direct ly (06/09) [email or web address] Not available 06/09/2020 06:33:50 Father Heart disease pt. added direct ly (06/09) [email or web address] Not available 06/09/2020 06:33:57 Medical History Condition Response Coronary Artery Disease N Gout N Kidney Stones N Hyperthyroidism N Erectile Dysfunction N Colonoscopy N COPD N Depression N Hypothyroidism N Developmental or Behavioral Disorders N Has Pacemaker N Diabetes - Non-insulin N Eczema, Hives or other skin conditions N Anxiety Disorder N Muscle, Joint, or Bone Problems N Vision or Eye Problems N Arthritis N Congenital Anomalies N Cancer N Stroke N Bladder or Kidney Problems N High Cholesterol Y Liver Disease N Dialysis N Fibromyalgia N Kidney Disease Y Ear or Hearing Problems N Leg/Foot Ulcer N Hypogonadism N ADD or ADHD N Thyroid Problems N Skin Problems N Anemia N Constipation N Blood Clots or DVT N Diabetes N Bleeding Disorder N Seizures/Epilepsy N Tuberculosis N Diabetes - Insulin N Diverticulitis N Heart Attack N Asthma Y Allergies N GERD/Reflux N Heart Disease N Pulmonary Embolism N Hypertension N Osteoporosis N Gynecological History Statement/Question Response Abnormal Pap N Number of pregnancies 0 Painful intercourse Y Breast lump or nipple discharge N Date of Last Mammogram 02/27/2019 Extreme menstrual pain N Wake in the night to go to the bathroom Y Age at Menarche 13 Do you use condoms? N Vaginal itching burning or discharge N Heavy periods N If Post Menopausal, Age at Menopause 48 Sexually Active? Y Hot flashes N Bleeding between periods N Other control method used None Date of Last Pap Smear 03/09/2018 Interested in being screened for STD's N Obstetrics History GPAL:G 0 P 0 0 0 0 Immunizations Vaccine Type Date Status Note Provider Nam e and Address Organization Details Recorded Time influenza, unspecified formulation 03/26/2020 completed Gregorio win [facility] 12/23/2023 07:23:50 Past Encounters Encounter ID Performer Location Encounter Start Date Encounter Closed Date Diagnosis/Indication Diagnosis SNOMED-CT Code Diagnosis ICD10 Code [id number] Omaira Valenzuela PA-C [facility] [address] 05/27/2020 13:31:56 06/06/2020 14:49:42 Exposure to SARS-CoV-2 069746917 Z20.724 [id number] Omaira Valenzuela PA-C [facility] [address] 06/13/2020 10:15:38 06/13/2020 18:06:15 Suspected COVID-19 384271187 Z03.540 [id number] Omaira Valenzuela PA-C [facility] [address] 09/22/2020 08:09:28 09/22/2020 10:47:30 Exposure to SARS-CoV-2 508452045 Z20.739 [id number] Apryl Rea PA-C [facility] [place] [address] [address] 12/23/2023 06:58:27 12/23/2023 13:22:50 Acute bacterial sinusitis 02118745 J01.90 Impacted c erumen of bilateral ears [id number] 790142 H61.23 Health Concerns Section Related Observation LastModified by Organization Detai ls LastModified Time None Recorded Concern Status LastModified by Organization Details LastModified Time None Recorded Advance Directives Directive N: Payers Encounter Date Sequence Insurance Name Policy Number Policy Almanza Covered Member ID Almanza Member ID Guarantor Name 05/27/2020 1 [place] Jacy Mixonrick [id number] Jacy Mc Butrick 05/27/2020 2 [place] [id number] Jacy Mc Butrick [id number] Jacy Mc Butrick 06/13/2020 1 [place] Jacy Mc Butrick [id number] Jacy Mc Butrick 06/13/2020 2 [place] [id number] Jacy Mc Butrick [id number] Jacy Mc Butrick 09/22/2020 1 [place] Jacy Mc Butrick [id number] Jacy Mc Butrick 09/22/2020 2 [place] [id number] Jacy Mc Butrick [id number] Jacy Mc Butrick 12/23/2023 1 [place] Jacy Mc Butrick [id number] Jacy Mc Butrick 12/23/2023 2 [place] [id number] Jacy S Butrick [id number] Jacy S Butrick Notes Date Note Type Note Provider Name and Address Organization Details Recorded Time 05/27/2020 text/html Needs covid test to move father into senior living Omaira Valenzuela PA-C [address] [facility], [place], [address], [place] - [facility] 05/28/2020 08:19:04 06/13/2020 text/html COVID-19 Symptom s October 2019Reported [email or web address].[email or web address] Signs and Symptomscough resolved; fever resolved; shortness of breath resolved; chills resolved; repeated shaking with chills resolved; muscle pain resolved; headache resolved; sore throat resolved; loss of taste or smell resolved; vomiting or diarrhea resolved; fatigue resolved; anorexia resolved Associated Symptoms:no sputum production; no wheezing; no runny nose; no vomiting; no diarrhea; no body aches; no nausea; no change in mental status; no hypotension; no tachycardia Patient presents today for COVID testing. Patient is asymptomatic. Omaira Valenzuela PA-C [address] [place], [address], [facility] 06/13/2020 11:45:32 09/22/2020 text/html Patient presents today for COVID testing. Patient is asymptomatic. Omaira Valenzuela PA-C [address] [place], [address], [facility] 09/22/2020 08:40:54 12/23/2023 text/html 68yo female presents with headache, sinus pressure/congestion , dizziness, and fatigue x1 week. Apryl Rea PA-C [address] [place], [address], [facility] 12/23/2023 08:21:05 OBGyn Episode No OBEpisode recorded.
--- OUTSIDE RECORDS SUMMARY | 2024-06-06 07:18 | XMS_ITS | Continuity of Care Document ---
Author Organization [facility] [address] [place] [address] Phone [phone] Social History Type Date Description Comments Sex Unknown Medical Devices Description No Information Available Encounters Description No Information Available Assessments Description No Information Available Plan of Treatment No Information Available Functional Status Description No Information Available Mental Status Description No Information Available Referrals Description No Information Available
--- OUTSIDE RECORDS SUMMARY | 2024-06-06 07:18 | XMS_ITS | Patient Health Record ---
Author Organization [facility] Address [address] [place] [address] Care Team Providers Care Publishing Editor Name Role Phone Meño Edwards MD Primary Care Provider UnavailFady Monk Jr Unavailable [phone] ALLERGIES Allergen (clinical drug ingredient) Drug/Non Drug Allergy documented on EMR Reaction Allergy Type Onset Date Status dust,pollen,mold,pet dander (uncoded) Unknown Allergy Active REASON FOR REFERRAL No Information MEDICATIONS Medication SIG (Take, Route, Frequency, Duration) Notes Start Date End Date Status MiraLax (colon prep) 8.3 ounce ((238) grams mixed with Gatorade or Crystal Light orally begin at 5:00 p.m. the day before the procedure for 1 day 07/28/2020 Active Pulmicort seasonal Active Proventil HFA PRN Active Fish Oil + D3 Active Tylenol PRN Active IMMUNIZATIONS Vaccine Route Administration Date Status Comme nts Influenza Unknown 02/13/2020 Administered SOCIAL HISTORY Sex Assigned At : Social History Observation Description Sex Assigned At Unknown Alcohol Screen Question Answer Notes Did you have a drink contain ing alcohol in the past year? Yes How often did you have a dri nk containing alcohol in the past year? Monthly or less (1 point) How often did you have 6 or more drinks on one occasion in the past year? Never (0 point) Points 1 Interpretation Negative PROBLEMS Problem Type ICD Code Onset Dates Problem Status W/U Status Risk SNOMED Code Notes Problem Colon cancer screening (V76.51) Active confirmed 594334735 Problem Personal history of colonic polyps (Z86.010) Active confirmed 759599361 Problem Colon cancer screening (Z12.11) Active confirmed 396941899 Problem Long-term current use of high risk medication other than anticoagulant (Z79.899) Active confirmed 980278810 PLAN OF TREATMENT Future Test Test Name Order Date COLONOSCOPY 04/01/2014 COLONOSCOPY 07/28/2020 Insurance Providers Payer Name Payer Address Payer Phone Subscriber Number Group Number Insured Name Patient Relationship to Insured Coverage Start Date Coverage End Date MEDICARE OF [place] [address] [place] [address] [id number] MENA DOMINIQUE Self - patient is the insured MEDEX ATTN CLAIMS [address] [place] [address] [phone] [id number] MENA DOMINIQUE Self - patient is the insured MEDICAL (GENERAL) HISTORY Medical History History ICD Code disc disease asthma abnormal liver function tests right rotator cuff problems personal history of colon po lyps. Last colonoscopy 07/19/14, normal, five-year followup do 07/16 thyroiditis Chronic Renal Disease - left Surgical History Surgery Date(Month/Year) tonsillectomy septum repair wisdom teeth extraction cyst removal-face cataract-lens implants- bi lateral
--- OUTSIDE RECORDS SUMMARY | 2024-06-06 07:18 | XMS_ITS | Patient Health Record ---
Author Organization [facility] Address [address] [facility] [address] [facility] [place] [address] Care Team Providers Care Vulcanizer Rubber Plate Name Role Phone Meño Edwards MD Primary Care Provider UnavailLondon Olivier Unavailable [phone] Vin Quevedo Unavailable [phone] Allergies Allergen (clinical drug ingredient) Drug/Non Drug Allergy documented on EMR Reaction Allergy Type Onset Date Status Grass Mix Pollens Allergen Ext Unknown Drug Allergy Active Mold Unknown Allergy Active Reason For Referral No Information Medications Medication SIG (Take, Route, Frequency, Duration) [...] Problem Status W/U Status Risk Notes Problem Gouty arthropathy (695848136) Lead-induced gout, 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 Problem 5540675973 Toxic effect of lead and its compounds, accidental (unintentional) , initial encounter (T56.0X1A) Active confirmed Problem 094472642 Lead-induced gout, 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 Vital Signs Height 5 ft 4 in in 09/09/2023 Weight 103 lbs 09/09/2023 BMI 17.68 kg/m2 09/09/2023 Encounters Encounter Location Date Provider Diagnosis [facility] [address] 09/09/2023 London Butt Pain in left foot M79.672 ; Toxic effect of lead and its compounds, accidental (unintentional), initial encounter T56.0X1A and Lead-induced gout, left ankle and foot M10.[address] [address] 09/08/2023 Vin Quevedo Assessments Encounter Date Diagnosis (ICD Code) Assessment Notes Treatment Notes Treatment Clinical Notes Section Notes 09/09/2023 Pain in left foot (ICD-10 - M79.672) 09/09/2023 Toxic effect of lead and its compounds, accidental (unintentional) , initial encounter (ICD-10 - T56.0X1A) 09/09/2023 Lead-induced gout, left ankle and foot (ICD-10 - M10.172) Plan Of Treatment Pending Test Test Name Order Date *Uric Acid, Serum 09/09/2023 *Sedimentation Rate-Westergren X ray : Foot, left 3V 01/27/2022 Insurance Providers Payer Name Payer Address Payer Phone Subscriber Number Group Number Insured Name Patient Relationship to Insured Coverage Start Date Coverage End Date Medicare National Govt SvPSC Info Group [facility] [address] [facility] [place] [address] [id number] Jacy Goldberg Self - patient is the insured Medex Blue Shield [address] [place] [address] [id number] Jacy Goldberg Self - patient is the insured Medical (General) History Medical History History ICD Code asthma Back pain CAD (Cholesterol) Cataracts Measles Mumps Kidney disease chronic sinusitis Warts Surgical History Surgery Date(Month/Year) tonsillectomy and adenoidectomy wisdom teeth extraction 1971 cataract surgery 10/28/2015 deviated septum repair 1976
== END 2024-06-01 10:54 | disposition home or self-care (01) ==
PROVIDERS: PCP Internal Medicine Medical Oncology; Visit Provider Internal Medicine Nephrology
DX: N18.4 Chronic kidney disease, stage 4 (severe) (principal); M10.372 Gout due to renal impairment, left ankle and foot; I15.1 Hypertension secondary to other renal disorders; N25.81 Secondary hyperparathyroidism of renal origin; D63.1 Anemia in chronic kidney disease
CPT/HCPCS: 99214

== ENCOUNTER → 2024-06-01 10:07 | Outpatient (BNVA) | payer MEDICARE, SELFPAY | PROVIDERS: PCP Internal Medicine Medical Oncology; Visit Provider Internal Medicine Nephrology | DX: I15.1 Hypertension secondary to other renal disorders (principal); N18.4 Chronic kidney disease, stage 4 (severe); M10.372 Gout due to renal impairment, left ankle and foot; N25.81 Secondary hyperparathyroidism of renal origin; D63.1 Anemia in chronic kidney disease | CPT/HCPCS: 99212 ==

== ENCOUNTER 2024-08-21 08:53 | Outpatient (REF) | payer MEDICARE, SELFPAY ==
[2024-08-21 09:03] LABS: MANUAL DIFF FLAG NO
[2024-08-21 09:35] LABS: Basophils Percent Auto 0.4 % (0-2); Eosinophils Absolute Auto 0.1 X10*3/uL (0.0-0.4); Eosinophils Percent Auto 2.9 % (0-4); Hemoglobin 8.6 g/dl (12.0-16.0); Imm Gran Abs Auto 0.02 X10*3/uL (0.00-0.03); Imm Gran Pct Auto 0.4 % (0.0-0.4); Lymphocytes Absolute Auto 0.8 X10*3/uL (1.2-4.9); Lymphocytes Percent Auto 17.7 % (20-40); Mean Corpuscular HGB Conc 30.7 g/dl (31.0-35.0); Mean Corpuscular Hemoglobin 30.8 pg (27.0-33.0); Mean Corpuscular Volume 100.4 fL (80.0-98.0); Monocytes Absolute Auto 0.4 X10*3/uL (0.1-1.2); Neutrophils Absolute Auto 3.1 x10*3/uL (2.0-8.3); Neutrophils Percent Auto 69.6 % (45-73); Platelet Count 112 X10*3/uL (160-400); Red Blood Count 2.79 X10*6/uL (4.20-5.50); Red Cell Distribution Width 13.9 % (11.0-16.0); White Blood Count 4.5 X10*3/uL (4.8-10.8)
--- OUTSIDE RECORDS SUMMARY | 2024-08-21 09:36 | XMS_ITS | Patient Health Record ---
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 Problem 8543806275 Toxic effect of lead and its compounds, accidental (unintentional) , initial encounter (T56.0X1A) Active confirmed Problem 982621614 Lead-induced gout, 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 Vital Signs Height 5 ft 4 in in 09/09/2023 Weight 103 lbs 09/09/2023 BMI 17.68 kg/m2 09/09/2023 Encounters Encounter Location Date Provider Diagnosis [facility] [address] 09/09/2023 London Butt Pain in left foot M79.672 ; Toxic effect of lead and its compounds, accidental (unintentional), initial encounter T56.0X1A and Lead-induced gout, left ankle and foot M10.[address] [address] 09/08/2023 Vin Quevedo Assessments Encounter Date Diagnosis [...] Date Coverage End Date Medicare National Govt Sv[address] [facility] [address] [place] [address] [id number] Jacy Goldberg Self - patient is the insured Med[employer] Blue Shield [address] [place] [address] [id number] Jacy Goldberg Self - patient is the insured Medical (General) History Medical History History ICD Code asthma Back pain CAD (Cholesterol) Cataracts Measles Mumps Kidney disease chronic sinusitis Warts Surgical History Surgery Date(Month/Year) tonsillectomy and adenoidectomy wisdom teeth extraction 1971 cataract surgery 10/28/2015 deviated septum repair 1976
--- OUTSIDE RECORDS SUMMARY | 2024-08-21 09:36 | XMS_ITS ---
Author Organization [facility] Address [address] [place] [address] Care Team Providers Care Accounts Payable Bookkeeper Name Role Phone Meño Edwards MD Primary Care Provider Unavailab [place] Unavailable [phone] Vin Quevedo Unavailable [phone] REASON FOR VISIT Swollen ft/ pain Encounters Encounter Location Date [facility] [address] [address] 09/08/2023 Vin Quevedo Plan Of Treatment No Information Progress Notes * Jacy DOMINIQUE SDOB: [birth year] (68 yo F)Acc No.[id number]:09/08/2023 Patient:?Jacy Dominique :1955???Age:68 Y???Sex:Female Address:[address] [place], [address] * true * Date:? Generated for Deepikai brent/Ngoc/eTransmitting on:?08/21/2024 03:53 AM EST
--- OUTSIDE RECORDS SUMMARY | 2024-08-21 09:36 | XMS_ITS | Clinical Summary ---
Author Organization [facility] Address [address] [place] [address] Phone Care Team Providers Care Merchandise Processor Name Role Phone Meño Edwards MD Primary Care Provider [phone] Allergies Active Allergy Reactions Criticality Noted Date Comments Mite (D. 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 Stage 3b chronic kidney disease 03/09/2021 Renal function tests outside reference range Resolved Problems Problem Noted Date Diagnosed Date Resolved Date Cataract 09/15/2021 09/15/2021 Hypercholesterolemia 09/15/2021 022 Inflammatory spondylopathy of cervical region 09/16/19 22 09/15/2021 Mild intermittent asthma 09/15/2021 Neutropenia 09/15/2021 09/15/2021 Osteoarthritis 09/15/2021 09/15/2021 Pancytopenia 09/15/2021 09/15/2021 Thrombocytopenia 09/15/2021 09/15/2021 Thyroiditis 09/15/2021 09/15/2021 Underweight 09/15/2021 09/15/2021 Immunizations Name Administration Dates Next Due TD Preservative Free 07/10/2012 Family History Medical History Relation Comments Heart disease Father Hypertension Father Diabetes Mother Relation Status Comments Father Alive Mother Social History Tobacco Use Types Packs/Day Years Used Date Smoking Tobacco: Never Smokeless Tobacco: Never Tobacco Cessation:Counseling Given: Not Answered Alcohol Use Standard Drinks/Week Comments Yes 0 (1 standard drink = 0.6 oz pur e alcohol) Wine occasionally; beer rarely Comments Unknown Sex and Gender Information Value Date Recorded Sex Assigned at Not on file Legal Sex Female 4:49 PM EST Gender Identity Not on file Sexual Orientation Not on file Last Filed Vital Signs Vital Sign Reading Time Taken Comments Blood Pressure 120/70 03/21/2023 1:56 PM EDT Pulse 72 03/21/2023 1:56 PM EDT Temperature - - Respiratory Rate - - Oxygen Saturation 99% 03/21/2023 1:56 PM EDT Inhaled Oxygen Concentration - - Weight 47.1 kg (103 lb 12.8 oz) 03/21/2023 1:56 PM EDT Height 163.8 cm (5' 4.5 ) 07/29/2020 12 :00 PM EST Body Mass Index 17.54 07/29/2020 12:00 PM EST Plan of Treatment Health Maintenance Due Date Last Done Comments Breast Cancer Screening 1955 Pneumococcal Vaccine: 65+ Ye ars (1 of 2 - PCV) 1959 Colorectal Cancer Screening: Annual FOBT 2002 Colorectal Cancer Screening: Colonoscopy 2002 Colorectal Cancer Screening: Sigmoidoscopy 2002 Influenza Vaccine (#1) 2024 Hepatitis B Vaccine Aged Out No longe r eligible based on patient's age to complete this topic Insurance [facility] MEDICARE [facility] MEDICARE Care Teams Merchandise Processor Relationship Specialty Start Date End Date Meño Edwards MD [address] [place], [place] [id number] [place], [place] PCP - General 07/07/20
--- OUTSIDE RECORDS SUMMARY | 2024-08-21 09:36 | XMS_ITS ---
Author Organization Meño Edwards III, MD Address [address] [place] [address] Care Team Providers Care Learning And Development Coordinator Name Role Phone Meño Edwards Primary Care Provider REASON FOR VISIT Message Social History Sex Assigned At : Social History Observation Description Sex Assigned At Female Encounters Encounter Location Date Provider Diagnosis Meño Edwards III, MD [address] [place] [address] [place] [address] 06/14/2024 Meño Edwards Plan Of Treatment Next Appt Details Provider Name:Meño Edwards, 08/23/2024 09:30:00 AM, [address] [place] [address] [place], [address], Provider Name:Meño Edwards, 04/22/2025 09:30:00 AM, [address] [place] [address] [place], [address], Progress Notes * Jacy DOMINIQUE SDOB: [birth year] (69 yo F)Acc No.[id number]:06/14/2024 Patient:?Jacy DOMINIQUE :1955???Age:69 Y???Sex:Female Address:[place] [address] * true * Date:? Generated for Printi ng/Faxing/eTransmitting on:?08/21/2024 09:35 AM EST
--- OUTSIDE RECORDS SUMMARY | 2024-08-21 09:36 | XMS_ITS ---
Author Organization Meño Edwards III, MD Address [address] [place] [address] Care Team Providers Care Inspector And Unloader Name Role Phone Meño Edwards Primary Care Provider [phone] Allergies Allergen (clinical drug ingredient) Drug/Non Drug [...] Problem Status W/U Status Risk Notes Problem 496832575 Macular degeneration of both eyes, unspecified type (H35.30) Active confirmed Problem 045767442 CKD (chronic kidney disease) stage 3, GFR [...] Date Provider Diagnosis Meño Edwards III, MD [address] [place] [address] [place] [address] 04/19/2024 Meño Edwards Hyperlipidemia, unsp ecified E78.5 [...] She is under the care of an chicken handler. 04/19/2024 Hypercholesterolemia (ICD-10 - E78.00) Comprehensive blood [...] problems Provider Name:Meño Edwards, 08/23/2024 09:30:00 AM, [address] [place] [address] [address] [place], [address], Provider Name:Meño Edwards, 04/22/2025 09:30:00 AM, [address] [place] [address] [address], [place], [address], Progress Notes * Jacy DOMINIQUE SDOB: [birth year] (69 yo F)Acc No.[id number]:04/19/2024 Progress Notes Patient:?Jacy DOMINIQUE S Provider:?Meño Edwards MD :1955???Age:69 Y???Sex:Female D ate:04/19/2024 Address:[address] [place] [id number] Subjective: * Chief Complaints: * ???Annual Examreview [...] up-to-date with nephrology.? She is otherwise asymptomatic.Her head esthetician saw her recently and told her she has early macular degeneration.? Vitamins were recommended.? Follow-up was arranged. * ROS:?General/Constitutional:?pain?only normal aches and pains.?Chills?denies.?Fatigue?admits.?Fever?denies.?Allergy/Immunology:?Admits?Congestion.?ENT:?Decreased hearing?denies.?Denies?Sore throat.?Respiratory:?Cough?denies.?Cardiovascular:?Chest pain with exertion?denies.?Dyspnea on exertion?denies.?Shortness of breath?denies.?Gastrointestinal:?Constipation?occasional.?Decreased appetite?denies.?Diarrhea?denies.?Heartburn?occasional.?Nausea?denies.?Rectal bleeding?denies.?Vomiting?denies.?Hematology:?bruising?denies.?petechiae?denies.?Swollen glands?none have been noted.?Genitourinary:?Frequent urination?a small amount.?Musculoskeletal:?Muscle aches?denies.?Painful joints?denies.?Sciatica?denies.?Weakness?denies.?Skin:?Itching?denies.?Rash?denies.?Skin lesion(s)?denies.?Neurologic:?Difficulty speaking?denies.?Dizziness?denies.?Headache?denies.?Low back pain?denies.?Psychiatric:?Depressed mood?denies.? * Medical History:? * Surgical History:?wisdom leif th extraction tonsillectomy septum repair [id number] right cataract surgery 2012colonoscopy, adenomatous polyp 2004colonoscopy, [...] non-smoker ???She is single and comes fom [facility]. She has no children. * [...] 08:00 AM)?ValueReference Range?Creatinine (CrCl) 3.04H0.5-1.4 - mg/dL?Creatinine Hdgvleujy09.8A19-429 - mL/min ?Creatinine, 24Hr Urine0.8L1.0-2.0 - G/Day?Total Volume 24 Hour Wzpde9254- mL?Creatinine, mg/dL40.82- * Lab:Creatinine * Collection Date [...] She is under the care of an chicken handler.???5.?Hypercholesterolemia - E78.00???Notes :Comprehensive blood work with a [...] Negative - * ?Menstrating no * Procedure Codes:?40790 URINE -NO MICRO * Preventive Medicine:? ??Counseling:?Care goal follow-up plan:?Counseling for abnormal BMI given?Yes ?Below Normal BMI Follow-up?Dietary education for weight gain * Follow Up:?In about four mon ths (Reason: To monitor the patient's number of problems) * Images: * Sign off status: Completed true * Provider:?Meño Edwards MD Date:?03/28 Generated for Timothy kennedy/Ngoc/eTransmitting on:?08/21/2024 09:36 AM EST History and Physical Notes * [...] the year COVID-19 Screening Questions Have you had any [...]
--- OUTSIDE RECORDS SUMMARY | 2024-08-21 09:36 | XMS_ITS ---
Author Organization [facility] Address [address] 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 Vital Signs Height 5 ft 4 in in 09/09/2023 Weight 103 lbs 09/09/2023 BMI 17.68 kg/m2 09/09/2023 Encounters Encounter Location Date Provider Diagnosis [facility] [address] [address] 09/09/2023 London Daquan Pain in left foot [...] Jacy DOMINIQUE SDOB: [birth year] (68 yo F)Acc No.[id number]:09/09/2023 Progress Note Patient:?Jacy Dominique Provider:?London Butt DPM :1955???Age:68 Y???Sex:Female D ate:09/09/2023 Address: [address] [facility], [facility] Pcp:Meño Edwards MD Subjective: * Chief Complaints: [...] DPM Date:? 024 Generated for Timothy kennedy/Ngoc/Angelaitting on:?08/21/2024 03:53 AM EST History and Physical Notes * [...] ORIENTED: person,place, and ti me Vascular DP PULSES (B): 2/4, B/L PT PULSES (B): 1/4, B/L CAPILLARY FILL TIME: 3 secs. per digit, B/L TEMPERTURE GRADIENT (C): warm to cool, p roximal to distal, B/L TROPHIC CONDITION-TEXTURE/ELASTICITY/TURGOR/HAIR GROWTH (B): normal, B/L EDEMA (C): 3/4, Left forefoot TELANGECTASIA: absent VARICOSITIES: absent PIGMENTATION: normal, B/L X-Rays - IMAGING REPORT Fracture: Negative fracture s identified Views: 3 views of Foot, LEF T from urgent care and from PCP Clinical Indication(s): Evaluate for Fra cture
--- OUTSIDE RECORDS SUMMARY | 2024-08-21 09:36 | XMS_ITS | Clinical Summary ---
Author Organization [facility] Address [address] [place] [address] Care Team Providers Care Educational Fundraising Director Name Role Phone Unavailable Primary Care Provider Unavailabl e Social History Tobacco Use Types Packs/Day Years Used Date Smoking Tobacco: Never Assessed Comments Unknown Sex and Gender Information Value Date Recorded Sex Assigned at Not on file Legal Sex Female 11:31 AM EST Gender Identity Not on file Sexual Orientation Not on file Plan of Treatment Not on file
--- OUTSIDE RECORDS SUMMARY | 2024-08-21 09:36 | XMS_ITS | Continuity of Care Document ---
Author Organization [facility] Address [address] [place] [address] Phone [phone] Social History Type Date Description Comments Sex Unknown Medical Devices Description No Information Available Encounters Description No Information Available Assessments Description No Information Available Plan of Treatment No Information Available Functional Status Description No Information Available Mental Status Description No Information Available Referrals Description No Information Available
--- OUTSIDE RECORDS SUMMARY | 2024-08-21 09:36 | XMS_ITS ---
Author Organization [facility] Address [address] [facility] [place] [address] Care Team Providers Care Transcriber Name Role Phone Grace BAKER, Meño Primary Care Provider Unavailab [place] Unavailable [phone] Vin Quevedo Unavailable [phone] REASON FOR VISIT Seen Sooner Encounters Encounter Location Date Provider Diagnosis [facility] [address] [address] 10/06/2023 Vin Quevedo Plan Of Treatment No Information Progress Notes * Jacy DOMINIQUE SDOB: [birth year] (69 yo F)Acc No.[id number]:10/06/2023 Progress Note Patient:?BEVERLEYPillo PEREIRAe Alexandro Provider:?Vin Quevedo DPM :1955???Age:68 Y???Sex:Female D ate:10/06/2023 Address:[address] [id number] Pcp:Meño Edwards MD Subjective: * Chief Complaints: [...] * Provider:?Vin Quevedo DPM Date:?2023 Generated for Timothy kennedy/Ngoc/Yogesh on:?08/21/2024 03:53 AM EST
--- OUTSIDE RECORDS SUMMARY | 2024-08-21 09:36 | XMS_ITS | Patient Health Record ---
Author Organization [facility] Address [address] [place] [address] Care Team Providers Care Content Strategist Name Role Phone Meño Edwards MD Primary Care Provider UnavailFady Monk Jr Unavailable ALLERGIES Allergen (clinical drug ingredient) Drug/Non Drug [...] Problem Colon cancer screening (V76.51) Active confirmed 229141940 Problem Colon cancer screening (Z12.11) Active confirmed 119044810 Problem Personal history of colonic polyps (Z86.010) Active confirmed 093163758 Problem Long-term current use of high risk medication other than anticoagulant (Z79.899) Active confirmed 803039850 PLAN OF TREATMENT Future Test Test Name Order Date COLONOSCOPY 04/01/2014 COLONOSCOPY 07/28/2020 Insurance Providers Payer Name Payer Address Payer Phone Subscriber Number Group Number Insured Name Patient Relationship to Insured Coverage Start Date Coverage End Date MEDICARE OF [place] [address] [facility] [place] [address] [id number] MENA DOMINIQUE Self - patient is the insured [employer] CLAIMS [address] [place] [phone] [id number] MENA DOMINIQUE Self - patient is the [...]
--- OUTSIDE RECORDS SUMMARY | 2024-08-21 09:36 | XMS_ITS | Data Portability ---
Author Organization [facility] Esthela ROYAL_Sarah_ Address [address] [place] [address] Care Team Providers Care Md Pediatric Allergist Name Role Phone KAR COVARRUBIAS Primary Care Provider [phone] Assessment No assessment recorded. Plan of Treatment Reminders Order Date Submit Date Provider Last Modified By Organization Details Last Modified Time Details Appointments None recorded. Lab rapid SARS CoV 2 Ag, QL IA, respiratory specimen 2023 024 In-Office Order, Internal Use Only DO Not Attach Compendium DO Not Attach Compendium, Do Not Delete/merge, [id number] 08:11:31 rapid flu (A+B) 2023 024 In-Office Order, Internal Use Only DO Not Attach Compendium DO Not Attach Compendium, Do Not Delete/merge, [id number] 4 08:11:32 SARS coronavirus RNA, qual, PCR, unspecified specimen 2020 021 [email or web address] In-Office Order, Internal Use Only DO Not Attach Compendium DO Not Attach Compendium, Do Not Delete/merge, [id number] 1 08:40:48 rapid SARS CoV 2 Ag, QL IA, respiratory specimen 2019 020 [email or web address] 5 In-Office Order, Internal Use Only DO Not Attach Compendium DO Not Attach Compendium, Do Not Delete/merge, [id number] 0 11:45:25 rapid SARS CoV 2 Ag, QL IA, respiratory specimen 2019 020 In-Office Order, Internal Use Only DO Not Attach Compendium DO Not Attach Compendium, Do Not Delete/merge, [id number] 0 15:44:46 Referral None recorded. Procedures cerumen removal (PROC) 2023 BISMARK In-Office Order, Internal Use Only DO Not Attach Compendium DO Not Attach Compendium, Do Not Delete/merge, [id number] 4 07:23:24 pulse oximetry (PROC) 2020 021 [email or web address] 5 In-Office Order, Internal Use Only DO Not Attach Compendium DO Not Attach Compendium, Do Not Delete/merge, [id number] 1 08:40:48 pulse oximetry (PROC) 2019 020 [email or web address] 5 In-Office Order, Internal Use Only DO Not Attach Compendium DO Not Attach Compendium, Do Not Delete/merge, [id number] 0 11:45:25 pulse oximetry (PROC) 2019 020 In-Office Order, Internal Use Only DO Not Attach Compendium DO Not Attach Compendium, Do Not Delete/merge, [id number] 0 16:31:34 Surgeries None recorded. Imaging None recorded. Medication [...] By Organization Details Last Modified Time 09/22/2020 [id number] learning about healthy weight [email or web address] Not available 09/22/2020 08:40:48 body mass index: care instructions Not available 09/22/2020 08:40:48 eating healthy foods: care instructions [email or web address] Not available 09/22/2020 08:40:48 9 things to do i f you've been exposed to covid-19 Not available 09/22/2020 08:40:48 12/23/2023 [id number] Acute Sinusitis: Care Instructions Not available 12/23/2023 [...] ABSCESS), MENINGITIS, INTRACRANIAL HEMORRHAGE, AIRWAY COMPROMISE, MASTO? I DITIS, or ISCHEMIC STROKE thus I consider the discharge disposition reasonable. The patient and I have discussed the diagnosis and risks, and we agree with discharging home with close follow-up with the understanding that symptoms and presentations can change. We also discussed returning to the Office immediately or going directly to the ED if new or acutely ? w orsening symptoms occur. We have discussed the symptoms which are most concerning (e.g., changing or worsening symptoms, new numbness or weakness, vomiting, fever) that necessitate immediate presentation to the ED. Not available 12/23/2023 08:11:53 Reason for Referral None Reported. Results Created Date Observation Date Name Description Value Unit Range Abnormal Flag Note LastModifiedBy Organization Detail LastModifiedTime 09/23/19 21 09/22/2020 pulse oxime try (PROC ) pulse oximetry 99% room air Not Available In-Office Order Internal Use Only DO Not Attach Compendium DO Not Attach Compendium, Do Not Delete/merge, [id number] 09/22/2020 08:20:07 05/27/20 20 05/27/2020 pulse oxime try (PROC ) pulse oximetry 99% room air Not Available In-Office Order Internal Use Only DO Not Attach Compendium DO Not Attach Compendium, Do Not Delete/merge, [id number] 05/27/2020 15:12:33 05/27/20 20 05/27/2020 rapid SARS CoV 2 Ag, QL IA, respi rator y speci men RAPID Nasal Covid negati ve Not Available In-Office Order Internal Use Only DO Not Attach Compendium DO Not Attach Compendium, Do Not Delete/merge, [id number] 05/27/2020 15:12:31 06/13/20 20 06/13/2020 rapid SARS CoV 2 Ag, QL IA, respi rator y speci men RAPID Nasal Covid negati ve Not Available In-Office Order Internal Use Only DO Not Attach Compendium DO Not Attach Compendium, Do Not Delete/merge, [id number] 06/13/2020 10:52:21 06/13/20 20 06/13/2020 pulse oxime try (PROC ) pulse oximetry 98% room air Not Available In-Office Order Internal Use Only DO Not Attach Compendium DO Not Attach Compendium, Do Not Delete/merge, [id number] 06/13/2020 10:52:23 09/23/19 21 09/22/2020 SARS coron aviru s RNA, qual, PCR, unspe cifie d speci men RAPID Bowles PCR COVID/Nasal negati ve Not Available In-Office Order Internal Use Only DO Not Attach Compendium DO Not Attach Compendium, Do Not Delete/merge, [id number] 09/22/2020 08:20:30 12/23/19 24 12/23/2023 rapid flu (A+B) Flu A negati ve Not Available In-Office Order Internal Use Only DO Not Attach Compendium DO Not Attach Compendium, Do Not Delete/merge, [id number] 12/23/2023 07:26:42 12/23/19 24 12/23/2023 rapid flu (A+B) Flu B negati ve Not Available In-Office Order Internal Use Only DO Not Attach Compendium DO Not Attach Compendium, Do Not Delete/merge, [id number] 12/23/2023 07:26:42 12/23/19 24 12/23/2023 rapid SARS CoV 2 Ag, QL IA, respi rator y speci men RAPID Nasal Covid negati ve Not Available In-Office Order Internal Use Only DO Not Attach Compendium DO Not Attach Compendium, Do Not Delete/merge, [id number] 12/23/2023 07:26:23 Result Notes None recorded. Problems No Known Problems Procedures Surgical History Date Name Laterality Status Provider Name and Address Organization Details Recorded Time 02/28/20 19 Date of Last Mammogram completed Gregorio Wooden [place] - [facility] 12/23/2023 07:23:34 03/09/20 18 Date of Last Pap Smear completed Gregorio Wooden [place] - [facility] 12/23/2023 07:23:34 Cataract Surgery completed Gregorio Wooden [place] - [facility] 12/23/2023 07:23:46 Colonoscopy completed Gregorio Wooden [place] - [facility] 12/23/2023 07:23:46 LEEP completed Gregorio Wooden [place] - [facility] 12/23/2023 07:23:46 Septoplasty completed Gregorio Wooden [place] - [facility] 12/23/2023 07:23:46 Tonsillectomy completed Gregorio Wooden [place] - [facility] 12/23/2023 07:23:46 Adenoid Surgery completed Gregorio Wooden [place] - [facility] 12/23/2023 07:23:46 Imaging Results [...] Updated DateTime 0 162.56 cm 15.8 kg/m2 47875.5 g 62 /min 97.2 [degF] 99 % 99 % 152 mm[Hg] 49 mm[Hg] Lorrie Lara [place] - [facility] 0 16:30:34 Date Recorded Body height Body mass index (BMI) Body weight Heart rate Body temperature Oxygen saturation Oxygen saturation in Arterial blood by Pulse oximetry Provider Name and Address Organization Details Last Updated DateTime 0 162.56 cm 16 kg/m2 47357.0 9 g 64 /min 97.9 [degF] 98 % 98 % Nani HutchisonYunior [facility] 0 10:51:05 Date Recorded Body height Body mass index (BMI) Body weight Heart rate Oxygen saturation Oxygen saturation in Arterial blood by Pulse oximetry Body temperature Provider Name and Address Organization Details Last Updated DateTime 1 162.56 cm 17.2 kg/m2 81969.2 4 g 71 /min 99 % 99 % 97.9 [degF] Nani NolbertotommieMil [facility] 1 08:18:56 Date Recorded Body height Body mass index (BMI) Body weight Heart rate Body temperature Oxygen saturation Oxygen saturation in Arterial blood by Pulse oximetry Systolic blood pressure Diastolic blood pressure Provider Name and Address Organization Details Last Updated DateTime 4 162.56 cm 17.7 kg/m2 83319.7 3 g 85 /min 97.5 [degF] 99 % 99 % 117 mm[Hg] 76 mm[Hg] Gregorio Stuart [place] - [facility] 4 07:23:08 Social History Question Answer Notes LastModified by Organizat ion Details LastModified Time Tobacco Smoking Status Never Smoker Gregorio Stuart [place], [place] - [facility] 12/23/2023 07:23:42 Do You Have An Advance Directive? No Information not available 12/23/2023 What Is Your Level Of Alcohol Consumption? Occasional Information not available 12/23/2023 What Is Your Level Of Caffeine Consumption? None Information not available 12/23/2023 How Much Tobacco Do You Chew? None Information not available 12/23/2023 In The 14 Days Before Symptom Onset, Have You Had Close Contact With A Laboratory-confir med COVID-19 While That Case Was Ill? No Information not available 05/27/2020 If Patient Spent Time In [facility] - Does The Patient Live In [facility]? No Information not available 05/27/2020 In The 14 Days Before Symptom Onset, Have You Had Close Contact With A Person Who Is Under Investigation For COVID-19 While That Person Was Ill? No Information not available 05/27/2020 In The 14 Days Before Symptom Onset, Did The Patient Spend Time In [facility]? No Information not available 05/27/2020 Have You [...] Hyperthyroidism N Erectile Dysfunction N Colonoscopy N Hypothyroidism N COPD N Depression N Developmental or Behavioral Disorders N Has [...] Recorded Time influenza, unspecified formulation 03/26/2020 completed KEN Garcia [facility] 12/23/2023 07:23:50 Past Encounters Encounter ID Performer Location Encounter Start Date Encounter Closed Date Diagnosis/Indication Diagnosis SNOMED-CT Code Diagnosis ICD10 Code Diagnosis Note [id number] Omaira Valenzuela PA-C [address] [address] 05/27/2020 13:31:56 06/06/2020 14:49:42 Exposure to SARS-CoV-2 509557981 Z20.828 NEG RAPID [id number] Omaira Valenzuela PA-C [address] [address] 06/13/2020 10:15:38 06/13/2020 18:06:15 Suspected COVID-19 066382268 Z03.818 neg rapid covid [id number] Omaira Valenzuela PA-C [address] [address] 09/22/2020 08:09:28 09/22/2020 10:47:30 Exposure to SARS-CoV-2 302124651 Z20.828 You were swabbed for Covid-19 today You are asymptomat ic. Your rapid swab was negative. It is possible to have a false negative swab if you are swabbed within 72 hours of exposure. If you have had exposure in the last 72 hours we do recommend that you continue to self isolate, social distance, and wear mask and gloves for any face to face contact. Return for repeat testing if you develop symptoms after exposure. Go to ED for developmen t of acute symptoms including any respirator y distress, chest pain, or altered mental status. It is very important that if you need to seen additional treatment that you call ahead so that the facility can prepare for your arrival [id number] Apryl Rea PA-C [facility] [place] [address] [facility] [address] [place] [address] 12/23/2023 06:58:27 12/23/2023 13:22:50 Acute bacterial sinusitis 98054612 J01.90 - Rapid flu and COVIDWill initiate empiric antibiotic therapy as detailed below as this has been ongoing over a week now. Supportive and symptomati c management discussed. Impacted c erumen of bilateral ears 0526891015 106601 H61.23 She did undergo successful bilateral lavage, TMs were cleared of infection status post lavage Health Concerns Section Related Observation LastModified by Organization Detai ls LastModified Time None Recorded Concern Status LastModified by Organization Details LastModified Time None Recorded Advance Directives Directive N: Payers Encounter Date Sequence Insurance Name Policy Number Policy Almanza Covered Member ID Almanza Member ID Guarantor Name 05/27/2020 1 [place] Jacy Mixonhelga [id number] Jacy Mixonhelga 05/27/2020 2 [facility] [id number] Jacy Mixonhelga [id number] Jacy Mixonhelga 06/13/2020 1 [place] Jacy Mixonhelga [id number] Jacy Mixonhelga 06/13/2020 2 [facility] [id number] Jacy Mixonhelga [id number] Jacy Mc Yusuf 09/22/2020 1 [place] Jacy Goldberg [id number] Jacy Goldberg 09/22/2020 2 [facility] [id number] Jacy Goldberg [id number] Jacy Goldberg 12/23/2023 1 [place] Jacy Goldberg [id number] Jacy Goldberg 12/23/2023 2 [facility] [id number] Jacy Goldberg [id number] Jacy Goldberg Notes Date Note Type Note Provider Name and Address Organization Details Recorded Time 05/27/2020 text/html Needs covid test to move father into group home Omaira Valenzuela PA-C [address] [place], [address], [facility] 05/28/2020 08:19:04 06/13/2020 text/html [...] today for COVID testing. Patient is asymptomatic. [facility] [place] [place], [address], [facility] 06/13/2020 11:45:32 09/22/2020 text/html Patient presents today for COVID testing. Patient is asymptomatic. [facility] [place], [address], [facility] 09/22/2020 08:40:54 12/23/2023 text/html 68yo female presents with headache, sinus pressure/congestion , dizziness, and fatigue x1 week. Apryl Rea PA-C [address] [place], [address], [facility] 12/23/2023 08:21:05 OBGyn Episode No OBEpisode recorded.
--- OUTSIDE RECORDS SUMMARY | 2024-08-21 09:36 | XMS_ITS | Continuity of Care Document ---
Author Organization [facility] Address [address] [place] [address]- [facility] Name Relationship Address Phone RIDGE DOMINIQUE Personal Relationship Unknown Irina vailable RIDGE DOMINIQEU Personal Relationship Unknown Unavailable RIDGE DOMINIQUE spouse Unknown Unavailable Care Team Providers Care Rescue Instructor Name Role Phone Meño Edwards MD Primary Care Physician [phone] [id number] Date(s): 07/17/24 - 08/16/24 [facility] [address] [place] [address]- Attending Physician: Chad Flores Admitting Physician: Chad Flores Referring Physician: Chad Flores Encounter Type: Triage Patient Care team information Care Team Personnel Name: Meño Edwards MD Position: [facility] Physician - Oncology Member Role: PCP Address: [address] [place] [address] [address] Meño Edwards III, [place] [address] Telecom: Care Team Related Persons Name: RIDGE DOMINIQUE Insurance Providers Guarantor name: MENA DOMINIQUE Health Plan Information #: 1 Payer: [employer] Member Number: NA Policy Number: NA Group Number: NA
--- OUTSIDE RECORDS SUMMARY | 2024-08-21 09:37 | XMS_ITS ---
Author Organization Meño Edwards III, MD Address [address] [place] [address] Care Team Providers Care Passenger Representative Name Role Phone Meño Edwards Primary Care [...] Date Provider Diagnosis Meño Edwards III, MD [address] [place] [address] [place] [address] 02/10/2024 Meño Edwards Hyperlipidemia, unspecified E78.5 ; [...] OV Provider Name:Meño Edwards, 08/23/2024 09:30:00 AM, [address] [place] [address] [address], [place], [address], Provider Name:Meño Edwards, 04/22/2025 09:30:00 AM, [address] [place] [address] [address], [place], [address], Progress Notes * Jacy DOMINIQUE SDOB: [birth year] (69 yo F)Acc No.[id number]:02/10/2024 Patient:?Jacy Dominique S Provider:?Meño Edwards MD :1955???Age:69 Y???Sex:Female D ate:02/10/2024 Address:[address] [place], [place] [address] Subjective: * Chief Complaints: * ???Pedal edemaChronic [...] without difficulty. ?Telehealth?Location of provider rendering services:?{...} [address] [place] [address] Drive [address] [place] [address] ?Location of patient:?address listed in demographics for [...] History:?wisdom leif th extraction tonsillectomy septum repair [id number] right cataract surgery 2012colonoscopy, adenomatous polyp 2004colonoscopy, [...] non-smoker ???She is single and comes fom [facility]. She has no children. * Medications:?TakingPulmicort Flexhaler [...] tablet, Orally, Once a day.?? * Procedure Codes:?85398 PHONE E/M BY PHYS 11-20 MIN * Preventive Medicine:? ??Counseling:?Care goal follow-up plan:?Counseling for abnormal BMI given?Yes ?Below Normal BMI Follow-up?Dietary education for weight gain * Follow Up:? SCHEDULED (Rodney son: OV) * Images: * Sign off status: Completed true * Provider:?Meño Edwards MD Date:?01/25 Generated for Timothy kennedy/Ngoc/Yogesh on:?08/21/2024 09:36 AM EST History and Physical Notes * HPI (History of Present Illness) Category Sub-Category Detail Notes Telehealth Location of [facility] rendering services:: {...} [address] [place] [address] Drive [address] [place] [id number] Location of patient:: address listed in demographics [...]
[2024-08-21 10:22] LABS: Alanine Aminotransferase 49 U/L (0-31); Albumin Level 4.1 g/dL (3.5-5.0); Alkaline Phosphatase 127 U/L (39-117); Anion Gap 12 (12-20); Aspartate Amino Transferase 51 U/L (5-31); Bilirubin Total 0.2 mg/dL (0.0-1.0); Blood Urea Nitrogen 107 mg/dL (9-16); Calcium 9.3 mg/dL (8.4-10.2); Carbon Dioxide 22 mmol/L (22-29); Chloride 114 mmol/L (96-108); Cholesterol 218 mg/dL (<200); Estimated Glomerular Filt Rate 11; Glucose Fasting 93 mg/dL (60-99); HDL Cholesterol 76 mg/dL (>40); LDL Cholesterol Calculated 117 mg/dL (<100); Potassium 5.4 mmol/L (3.3-5.1); Sodium 143 mmol/L (135-145); Total Protein 6.9 g/dL (6.5-8.0); Triglycerides 125 mg/dL (<150)
[2024-08-21 10:31] LABS: Free T4 (Free Thyroxine) 0.93 ng/dL (0.71-1.85); Thyroid Stimulating Hormone 4.83 uIU/mL (0.32-4.0)
== END 2024-08-21 08:54 | disposition home or self-care (01) ==
LOC: HO.LAB 08:53
PROVIDERS: PCP Internal Medicine Medical Oncology; Visit Provider Internal Medicine Medical Oncology
DX: E78.5 Hyperlipidemia, unspecified (principal); D61.818 Other pancytopenia; Z86.39 Personal history of other endocrine, nutritional and metabolic disease; E78.00 Pure hypercholesterolemia, unspecified; D70.9 Neutropenia, unspecified
CPT/HCPCS: 36415; 80053; 80061; 84439; 84443; 85025

== ENCOUNTER 2024-08-28 07:24 | Outpatient (REF) | payer MEDICARE, SELFPAY ==
--- OUTSIDE RECORDS SUMMARY | 2024-08-28 07:28 | XMS_ITS ---
Author Organization Meño Edwards III, MD Address [address] [place] [address] Care Team Providers Care Communications Engineer Name Role Phone Meño Edwards Primary Care Provider [phone] REASON FOR VISIT Message Social History Sex Assigned At : Social History Observation Description Sex Assigned At Female Encounters Encounter Location Date Provider Diagnosis Meño Edwards III, MD [address] [place] [address] [place] [address] 06/14/2024 Meño Edwards Plan Of Treatment Next Appt Details Provider Name:Meño Edwards, 11/21/2024 09:30:00 AM, [address] [place] [address] [place], [address], Provider Name:Meño Edwards, 04/22/2025 09:30:00 AM, [address] [place] [address] [place], [address], Progress Notes * Jacy DOMINIQUE SDOB: [birth year] (69 yo F)Acc No.[id number]:06/14/2024 Patient:?Jacy DOMINIQUE :1955???Age:69 Y???Sex:Female Address:[place] [address] * true * Date:? Generated for Printi ng/Faxing/eTransmitting on:?08/28/2024 07:28 AM EST
--- OUTSIDE RECORDS SUMMARY | 2024-08-28 07:28 | XMS_ITS ---
Author Organization [facility] Address [address] [facility] [place] [address] Care Team Providers Care Plater Supervisor Name Role Phone Meño Edwards MD Primary Care Provider Unavailab London Braswell Unavailable [phone] Vin Quevedo Unavailable [phone] REASON FOR VISIT Swollen ft/ pain Encounters Encounter [facility] Date [facility] [address] [address] 09/08/2023 Vin Quevedo Plan Of Treatment No Information Progress Notes * Jacy DOMINIQUE SDOB: [birth year] (68 yo F)Acc No.[id number]:09/08/2023 Patient:?Jacy Dominique :1955???Age:68 Y???Sex:Female Address:[address] [place], [address] * true * Date:? Generated for Deepikai brent/Ngoc/eTransmitting on:?08/28/2024 07:28 AM EST
--- OUTSIDE RECORDS SUMMARY | 2024-08-28 07:28 | XMS_ITS | Patient Health Record ---
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, accidental (unintentional) , initial encounter (T56.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) Active confirmed Problem 567152835 Lead-induced gout, 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 Vital Signs Height 5 ft 4 in in 09/09/2023 Weight 103 lbs 09/09/2023 BMI 17.68 kg/m2 09/09/2023 Encounters Encounter Location Date Provider Diagnosis [facility] [address] 09/09/2023 London Butt Pain in left foot M79.672 ; Toxic effect of lead and its compounds, accidental (unintentional), initial encounter T56.0X1A and Lead-induced gout, left ankle and foot M10.[address] [address] 09/08/2023 Vin Quevedo Assessments Encounter Date Diagnosis [...] Date Coverage End Date Medicare National Govt [facility] [address] [place] [place] [address] [id number] Jacy Goldberg Self - patient is the insured [employer] [address] [place] [address] [phone] [id number] Jacy Goldberg Self - patient is the insured Medical (General) History Medical History History ICD Code asthma Back pain CAD (Cholesterol) Cataracts Measles Mumps Kidney disease chronic sinusitis Warts Surgical History Surgery Date(Month/Year) tonsillectomy and adenoidectomy wisdom teeth extraction 1971 cataract surgery 10/28/2015 deviated septum repair 1976
--- OUTSIDE RECORDS SUMMARY | 2024-08-28 07:28 | XMS_ITS | Clinical Summary ---
Author Organization [facility] Address [address] [place] [address] Care Team Providers Care Preschool Principal Name Role Phone Unavailable Primary Care Provider [...]
--- OUTSIDE RECORDS SUMMARY | 2024-08-28 07:28 | XMS_ITS ---
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 Problem Gouty arthropathy (920496322) Lead-induced gout, 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 024 Generated for Timothy kennedy/Ngoc/Angelaitting on:?08/28/2024 07:28 AM EST History and Physical Notes * [...]
--- OUTSIDE RECORDS SUMMARY | 2024-08-28 07:29 | XMS_ITS ---
Author Organization Meño Edwards III, MD Address [address] [place] [address] Care Team Providers Care Ammonia Distiller Name Role Phone Meño Edwards Primary Care [...] Date Provider Diagnosis Meño Edwards III, MD [address] [place] [address] [address] [place], [place] [address] 08/23/2024 Meño Edwards Underweight R63.6 ; CKD [...] list for a kidney transplant by her finance accounting internship. 08/23/2024 Mild intermittent asthma without complication (ICD-10 - J45.20) She has had no difficulty with asthma lately. She has an inhaler which she has not been using. 08/23/2024 Thrombocytopenia (ICD-10 - D69.6) She has had no bleeding and is avoiding aspirin. 08/23/2024 Thyroiditis (ICD-10 - E06.9) This is not an active problem. She remains under the care of her strategies analyst. She is asymptomatic at this time. [...] Reason: OV, Routine follow-up Provider Name:Meño Edwards, 11/21/2024 09:30:00 AM, [address] [place] [address] [address], [place], [address], Provider Name:Meño Edwards, 04/22/2025 09:30:00 AM, [address] [place] [address] [address], [place], [address], Progress Notes * Jacy DOMINIQUE SDOB: [birth year] (69 yo F)Acc No.[id number]:08/23/2024 Progress Notes Patient:?Jacy DOMINIQUE S Provider:?Meño Edwards MD :1955???Age:69 Y???Sex:Female D ate:08/23/2024 Address:[address] [place] [address] Subjective: * Chief Complaints: * ???UnderweightPancytopeniaAs thmaCKDGoutMacular degenerationOn kidney transplant list * HPI: ???COVID-19 Screening:? moving to [place] dont know when. ?Questions?Have you had any new onset fever, chills, cough, congestion, sore throat, shortness of breath, muscle aches??No ???:? The patient, a 69-year-old female, presented with [...] her new glasses. She has seen an story reader twice this year for this issue. The patient also has a history of kidney issues and has been referred for a transplant. She is currently on a waiting list for the transplant. She also reported occasional swelling in her legs. * ROS:?General/Constitutional:?Admits?pain,?only normal aches and pains.?Chills?denies.?Fatigue?admits.?Fever?denies.?ENT:?Decreased hearing?denies.?Respiratory:?Cough?denies.?Cardiovascular:?Chest pain with exertion?denies.?Dyspnea on exertion?denies.?Admits?Shortness of breath,?denies.?Gastrointestinal:?Constipation?denies.?Decreased appetite?denies.?Diarrhea?denies.?Heartburn?1 recent episode.?Nausea?denies.?Rectal bleeding?denies.?Vomiting?denies.?Hematology:?bruising?denies.?petechiae?denies.?Swollen glands?none have been noted.?Genitourinary:?Frequent urination?denies.?Musculoskeletal:?Muscle aches?denies.?Painful joints?denies.?Sciatica?denies.?Weakness?denies.?Skin:?Itching?denies.?Rash?denies.?Skin lesion(s)?denies.?Neurologic:?Difficulty speaking?denies.?Dizziness?denies.?Headache?denies.?Low back pain?denies.?Psychiatric:?Depressed mood?denies.? * Medical History:? * Surgical History:?wisdom leif th extraction tonsillectomy septum repair [id number] right cataract surgery 2012colonoscopy, adenomatous polyp 2004colonoscopy, wnl 2009biopsy on left index finger 09/2018Basal Cell removed, Left arm 01/10/2023No history * Hospitalization/Major Diagno stic Procedure:?No history * Family History:?Father: dece ased 95 yrs, hyperlipidemia, hypertension, diagnosed with Hyperlipidemia, Cancer, HTN.?Mother: 75 yrs, liver cancer, adult onset diabetes mellitus, diagnosed with DM, Cancer.?Spouse: alive.?1 brother(s) . .? She has no children. A brother at one year old. She is not aware of any family history of mental illness or addiction or substance use disorder. * Social History:?Tobacco Use:?Tobacco Use/Smoking?Patient is a?nonsmoker ?Additional Findings: Tobacco Non-User?Aggressive non-smoker ???She is single and comes fom [facility]. She has no children. * Medications:?TakingPulmicort Flexhaler [...] Twice a day , Notes to Pharmacist: October-king ProAir HFA 108 (90 Base) MCG/ACT [...] Allergies:?Seasonaleno[Aller gies Verified] Objective: * Vitals:?Ht: 65, Wt:113, BMI: 18.8, BP:140/56, HR:62, Temp:98.0, Ht-cm: 165.1, Wt- k.26. * ???Past Orders: Lab:Electrolytes * Collection Date 05/28/2024 03/02/2024 09/09/2023 Collection Time 08:53 AM 12:58 PM 12:19 PM Order Date 05/28/2024 03/02/2024 09/09/2023 Sodium 142 (Ref Range: 135-145 mmol/L) 140 (Ref Range: 135-145 mmol/L) 145 (Ref Range: 135-145 mmol/L) Potassium 5.1 (Ref Range: 3.3-5.1 mmol/L) 5.5?H (Ref Range: 3.3-5.1 mmol/L) 4.8 (Ref Range: 3.3-5.1 mmol/L) Chloride 107 (Ref Range: 96-108 mmol/L) 110?H (Ref Range: 96-108 mmol/L) 111?H (Ref Range: 96-108 mmol/L) Carbon Dioxide 29 (Ref Range: 22-29 mmol/L) 21?L (Ref Range: 22-29 mmol/L) 24 (Ref Range: 22-29 mmol/L) Anion Gap 11?L (Ref Range: 12-20) 15 (Ref Range: 12-20) 15 (Ref Range: 12-20) * Lab:Blood Urea Nitrogen * Collection Date 05/28/2024 03/02/2024 09/09/2023 Collection Time 08:53 AM 12:58 PM 12:19 PM Order Date 05/28/2024 03/02/2024 09/09/2023 Blood Urea Nitrogen 80?H (Ref Range: 9-16 mg/dL) 63?H (Ref Range: 9-16 mg/dL) 76?H (Ref Range: 9-16 mg/dL) * Lab:Creatinine * Collection Date 05/28/2024 03/02/2024 09/09/2023 Collection Time 08:53 AM 12:58 PM 12:19 PM Order Date 05/28/2024 03/02/2024 09/09/2023 Creatinine 3.57?H (Ref Range: 0.5-1.4 mg/dL) 3.04?H (Ref Range: 0.5-1.4 mg/dL) 3.26?H (Ref Range: 0.5-1.4 mg/dL) Estimated Glomerular Filt Rate 13 15 14 * Lab:Comprehensive [place]. Pane l Fast * Collection Date 08/21/2024 04/13/2024 07/26/2023 Collection Time 09:02 AM 07:26 AM 09:30 AM Order Date 08/21/2024 04/13/2024 07/26/2023 Sodium 143 (Ref Range: 135-145 mmol/L) 143 (Ref Range: 135-145 mmol/L) 143 (Ref Range: 135-145 mmol/L) Bilirubin Total 0.2 (Ref Range: 0.0-1.0 mg/dL) 0.3 (Ref Range: 0.0-1.0 mg/dL) 0.3 (Ref Range: 0.0-1.0 mg/dL) Aspartate Amino Transferase 51?H (Ref Range: 5-31 U/L) 44?H (Ref Range: 5-31 U/L) 57?H (Ref Range: 5-31 U/L) Alanine Aminotransferase 49?H (Ref Range: 0-31 U/L) 37?H (Ref Range: 0-31 U/L) 55?H (Ref Range: 0-31 U/L) Total Protein 6.9 (Ref Range: 6.5-8.0 g/dL) 6.9 (Ref Range: 6.5-8.0 g/dL) 7.0 (Ref Range: 6.5-8.0 g/dL) Albumin Level 4.1 (Ref Range: 3.5-5.0 g/dL) 4.3 (Ref Range: 3.5-5.0 g/dL) 4.3 (Ref Range: 3.5-5.0 g/dL) Alkaline Phosphatase 127?H (Ref Range: 39-117 U/L) 111 (Ref Range: 39-117 U/L) 82 (Ref Range: 39-117 U/L) Potassium 5.4?H (Ref Range: 3.3-5.1 mmol/L) 4.8 (Ref Range: 3.3-5.1 mmol/L) 5.3?H (Ref Range: 3.3-5.1 mmol/L) Chloride 114?H (Ref Range: 96-108 mmol/L) 109?H (Ref Range: 96-108 mmol/L) 107 (Ref Range: 96-108 mmol/L) Carbon Dioxide 22 (Ref Range: 22-29 mmol/L) 26 (Ref Range: 22-29 mmol/L) 26 (Ref Range: 22-29 mmol/L) Anion Gap 12 (Ref Range: 12-20) 13 (Ref Range: 12-20) 15 (Ref Range: 12-20) Blood Urea Nitrogen 107?H (Ref Range: 9-16 mg/dL) 84?H (Ref Range: 9-16 mg/dL) 70?H (Ref Range: 9-16 mg/dL) Creatinine 3.94?H (Ref Range: 0.5-1.4 mg/dL) 3.13?H (Ref Range: 0.5-1.4 mg/dL) 2.96?H (Ref Range: 0.5-1.4 mg/dL) Estimated Glomerular Filt [...] mg/dL) 84 (Ref Range: <150 mg/dL) Cholesterol 218?H (Ref Range: <200 mg/dL) 212?H (Ref Range: <200 mg/dL) 231?H (Ref Range: <200 mg/dL) LDL Cholesterol Calculated 117?H (Ref Range: <100 mg/dL) 98 (Ref Range: <100 mg/dL) 122?H (Ref Range: <100 mg/dL) HDL Cholesterol 76 [...] Date 08/21/2024 04/13/2024 01/31/2024 White Blood Count 4.5?L (Ref Range: 4.8-10.8 X10*3/uL) 4.2?L (Ref Range: 4.8-10.8 X10*3/uL) 4.7?L (Ref Range: 4.8-10.8 X10*3/uL) Red Blood Count 2.79?L (Ref Range: 4.20-5.50 X10*6/uL) 2.99?L (Ref Range: 4.20-5.50 X10*6/uL) 3.02?L (Ref Range: 4.20-5.50 X10*6/uL) Hemoglobin 8.6?L (Ref Range: 12.0-16.0 g/dl) 9.6?L (Ref Range: 12.0-16.0 g/dl) 9.6?L (Ref Range: 12.0-16.0 g/dl) Hematocrit 28.0?L (Ref Range: 37.0-47.0 %) 30.0?L (Ref Range: 37.0-47.0 %) 30.6?L (Ref Range: 37.0-47.0 %) Mean Corpuscular Volume 100.4?H (Ref Range: 80.0-98.0 fL) 100.3?H (Ref Range: 80.0-98.0 fL) 101.3?H (Ref Range: 80.0-98.0 fL) Mean Corpuscular Hemoglobin 30.8 (Ref Range: 27.0-33.0 pg) 32.1 (Ref Range: 27.0-33.0 pg) 31.8 (Ref Range: 27.0-33.0 pg) Mean Corpuscular HGB Conc 30.7?L (Ref Range: 31.0-35.0 g/dl) 32.0 (Ref Range: 31.0-35.0 g/dl) 31.4 (Ref Range: 31.0-35.0 g/dl) Red Cell Distribution Width 13.9 (Ref Range: 11.0-16.0 %) 13.6 (Ref Range: 11.0-16.0 %) 13.2 (Ref Range: 11.0-16.0 %) Platelet Count 112?L (Ref Range: 160-400 X10*3/uL) 139?L (Ref Range: 160-400 X10*3/uL) 114?L (Ref Range: 160-400 X10*3/uL) Mean Platelet Volume 11.0 (Ref Range: 9.4-12.3 fL) 11.1 (Ref Range: 9.4-12.3 fL) 11.0 (Ref Range: 9.4-12.3 fL) Neutrophils Percent Auto 69.6 (Ref Range: 45-73 %) 62.3 (Ref Range: 45-73 %) 69.4 (Ref Range: 45-73 %) Imm Gran Pct Auto 0.4 (Ref Range: 0.0-0.4 %) 0.2 (Ref Range: 0.0-0.4 %) 0.4 (Ref Range: 0.0-0.4 %) Lymphocytes Percent Auto 17.7?L (Ref Range: 20-40 %) 24.5 (Ref Range: [...] (Ref Range: 0.00-0.03 X10*3/uL) Lymphocytes Absolute Auto 0.8?L (Ref Range: 1.2-4.9 X10*3/uL) 1.0?L (Ref Range: 1.2-4.9 X10*3/uL) 0.9?L (Ref Range: 1.2-4.9 X10*3/uL) Monocytes Absolute Auto [...] Order Date 08/21/2024 07/08/2020 Thyroid Stimulating Hormone 4.83?H (Ref Range: 0.32-4.0 uIU/mL) 2.02 (Ref Range: 0.32-4.0 uIU/mL) * Examination: ???General Examination: ?GENERAL APPEARANCE:?pleasant, well [...] GFR 30-59 ml/min - N18.3 (Primary)???Notes :Her renal function continues to decline.? She is followed closely by nephrology.? Her recent BUN is 107, Creatinine 3.94, GFR 11..? She has been placed on a list for a kidney transplant by her finance accounting internship.???2.?Underweight - R63.6???Notes :Her weight has been stable lately with a body mass index of 18.???3.?Mild intermittent asthma without complication - J45.20???Notes :She has had no difficulty with asthma lately. She has an inhaler which she has not been using.???4.?Thrombocytopenia - D69.6???Notes :She has had no bleeding and is avoiding aspirin.???5.?Thyroiditis - E06.9???Notes :This is not an active problem. She remains under the care of her strategies analyst. She is asymptomatic at this time.???6.?Osteoporosis - M81.0???Notes :She has been compliant with his therapy. It was reviewed with her today.??? Plan: * Treatment: * Labs:? * ?Lab: PROFILE, FASTING ( COMPREHENSIVE METABOLIC) ?Lab: CBC WITH AUTO DIFF ?Lab: Lipid Panel * Procedure Codes:? * Preventive Medicine:? ??Counseling:?Care goal follow-up plan:?Counseling for abnormal BMI given?Yes ?Below Normal BMI Follow-up?Dietary education for weight gain, Dietary management education, guidance, and counseling * Follow Up:?3 Months, In thre e months (Reason: OV, Routine follow-up) * Images: * Sign off status: Completed true * Provider:?Meño Edwards MD Date:?07/29 Generated for Timothy kennedy/Ngoc/eTalexsmitting on:?08/28/2024 07:29 AM EST History and Physical Notes * [...]
--- OUTSIDE RECORDS SUMMARY | 2024-08-28 07:29 | XMS_ITS ---
Author Organization Meño Edwards III, MD Address [address] [place] [address] Care Team Providers Care Head Of Science Name Role Phone Meño Edwards Primary Care Provider [phone] Allergies Allergen (clinical drug ingredient) Drug/Non Drug [...] Problem Status W/U Status Risk Notes Problem 546931991 Macular degeneration of both eyes, unspecified type (H35.30) Active confirmed Problem 801031331 CKD (chronic kidney disease) stage 3, GFR 30-59 ml/min (N18.3) Active confirmed Her renal function continues to decline. She is followed closely by nephrology. Her recent BUN is 107, Creatinine 3.94, GFR 11.. She has been placed on a list for a kidney transplant by her dragline operator helper. Vital Signs Temperature 97.0 degrees Fahrenheit 04/19/20 Blood pressure systolic 138 mm Hg 04/19/20 Blood pressure diastolic 40 mm Hg 024 Heart Rate 65 /min 04/19/2024 Height 65 in 04/19/2024 Weight 109 lbs 04/19/2024 BMI 18.14 kg/m2 04/19/2024 Encounters Encounter Location Date Provider Diagnosis Meño Edwards III, MD [address] [place] [address] [place] [address] 04/19/2024 Meño Edwards Hyperlipidemia, unsp ecified E78.5 [...] She is under the care of an edi manager. 04/19/2024 Hypercholesterolemia (ICD-10 - E78.00) Comprehensive blood [...] patient's number of problems Provider Name:Meño Edwards, 11/21/2024 09:30:00 AM, [address] [place] [address] [address], [place], [address], Provider Name:Meño Edwards, 04/22/2025 09:30:00 AM, [address] [place] [address] [address], [place], [address], Progress Notes * Jacy DOMINIQUE SDOB: [birth year] (69 yo F)Acc No.[id number]:04/19/2024 Progress Notes Patient:?Jacy DOMINIQUE S Provider:?Meño Edwards MD :1955???Age:69 Y???Sex:Female D ate:04/19/2024 Address:[address] [place] [address] [place], [id number] Subjective: * Chief Complaints: * ???Annual Examreview [...] up-to-date with nephrology.? She is otherwise asymptomatic.Her acrylic fabricator saw her recently and told her she has early macular degeneration.? Vitamins were recommended.? Follow-up was arranged. * ROS:?General/Constitutional:?pain?only normal aches and pains.?Chills?denies.?Fatigue?admits.?Fever?denies.?Allergy/Immunology:?Admits?Congestion.?ENT:?Decreased hearing?denies.?Denies?Sore throat.?Respiratory:?Cough?denies.?Cardiovascular:?Chest pain with exertion?denies.?Dyspnea on exertion?denies.?Shortness of breath?denies.?Gastrointestinal:?Constipation?occasional.?Decreased appetite?denies.?Diarrhea?denies.?Heartburn?occasional.?Nausea?denies.?Rectal bleeding?denies.?Vomiting?denies.?Hematology:?bruising?denies.?petechiae?denies.?Swollen glands?none have been noted.?Genitourinary:?Frequent urination?a small amount.?Musculoskeletal:?Muscle aches?denies.?Painful joints?denies.?Sciatica?denies.?Weakness?denies.?Skin:?Itching?denies.?Rash?denies.?Skin lesion(s)?denies.?Neurologic:?Difficulty speaking?denies.?Dizziness?denies.?Headache?denies.?Low back pain?denies.?Psychiatric:?Depressed mood?denies.? * Medical History:? * Surgical History:?wisdom leif th extraction tonsillectomy septum repair [id number] right cataract surgery 2012colonoscopy, adenomatous polyp 2004colonoscopy, [...] non-smoker ???She is single and comes fom [facility]. She has no children. * Medications:?TakingSodium Po [...] 08:00 AM)?ValueReference Range?Creatinine (CrCl) 3.04H0.5-1.4 - mg/dL?Creatinine Qvzcrdqnq56.2E54-978 - mL/min ?Creatinine, 24Hr Urine0.8L1.0-2.0 - G/Day?Total Volume 24 Hour Wgwwr7401- mL?Creatinine, mg/dL40.82- * Lab:Creatinine * Collection Date 03/02/2024 09/09/2023 09/08/2021 Collection Time 12:58 PM 12:19 PM 11:19 AM Order Date 03/02/2024 09/09/2023 09/08/2021 Creatinine 3.04?H (Ref Range: 0.5-1.4 mg/dL) 3.26?H (Ref Range: 0.5-1.4 mg/dL) 2.29?H (Ref Range: 0.5-1.4 mg/dL) Estimated Glomerular Filt Rate * Examination: ???General Examination: ?GENERAL APPEARANCE:?pleasant, well [...] She is under the care of an edi manager.???5.?Hypercholesterolemia - E78.00???Notes :Comprehensive blood work with a [...] Negative - * ?Menstrating no * Procedure Codes:?01033 URINE -NO MICRO * Preventive Medicine:? ??Counseling:?Care goal follow-up plan:?Counseling for abnormal BMI given?Yes ?Below Normal BMI Follow-up?Dietary education for weight gain * Follow Up:?In about four mon ths (Reason: To monitor the patient's number of problems) * Images: * Sign off status: Completed true * Provider:?Meño Edwards MD Date:?03/28 Generated for Timothy kennedy/Ngoc/eTransmitting on:?08/28/2024 07:29 AM EST History and Physical [...]
--- OUTSIDE RECORDS SUMMARY | 2024-08-28 07:29 | XMS_ITS | Clinical Summary ---
Author Organization [facility] Address [address] [place] [address] Phone Care Team Providers Care Master Craftsman Name Role Phone Meño Edwards MD Primary Care Provider [phone] Allergies Active Allergy Reactions Criticality Noted Date [...] patient's age to complete this topic Insurance [facility] MEDICARE [facility] MEDICARE Care Teams Master Craftsman Relationship Specialty Start Date End Date Meño Edwards MD [address] [place], [place] [id number] [place], [place] PCP - General 07/07/20
--- OUTSIDE RECORDS SUMMARY | 2024-08-28 07:29 | XMS_ITS ---
Author Organization [facility] Address [address] [place] [address] Care Team Providers Care Plant Operations Engineer Name Role Phone Grace BAKER, Meño Primary Care Provider Unavailab London Bras[place] Unavailable [phone] Vin Quevedo Unavailable [phone] REASON FOR VISIT Seen Sooner Encounters Encounter Location Date Provider Diagnosis [facility] [address] [address] 10/06/2023 Vin Quevedo Plan Of Treatment No Information Progress Notes * Jacy DOMINIQUE SDOB: [birth year] (69 yo F)Acc No.[id number]:10/06/2023 Progress Note Patient:?BEVERLEYPillo PEREIRAe Alexandro Provider:?Vin Quevedo DPM :1955???Age:68 Y???Sex:Female D ate:10/06/2023 Address:[address] [phone] Pcp:Meño Edwards MD Subjective: * Chief Complaints: [...] Quevedo DPM Date:?2023 Generated for Timothy kennedy/Ngoc/Yogesh on:?08/28/2024 07:28 AM EST
--- OUTSIDE RECORDS SUMMARY | 2024-08-28 07:29 | XMS_ITS | Patient Health Record ---
Author Organization [facility] Address [address] [place] [address] Care Team Providers Care Real Estate Financial Analyst Name Role Phone Meño Edwards MD Primary Care Provider UnavailFady Monk Jr Unavailable [phone] ALLERGIES Allergen (clinical drug ingredient) Drug/Non Drug [...] Problem Colon cancer screening (V76.51) Active confirmed [id number] Problem Colon cancer screening (Z12.11) Active confirmed 626734525 Problem Personal history of colonic polyps (Z86.010) Active confirmed 814705501 Problem Long-term current use of high risk medication other than anticoagulant (Z79.899) Active confirmed 603316289 PLAN OF TREATMENT Future Test Test Name Order Date COLONOSCOPY 04/01/2014 COLONOSCOPY 07/28/2020 Insurance Providers Payer Name Payer Address Payer Phone Subscriber Number Group Number Insured Name Patient Relationship to Insured Coverage Start Date Coverage End Date MEDICARE OF [place] [address] [facility] [address] [id number] MENA DOMINIQUE Self - patient is the insured [employer] ATT[employer] CLAIMS [address] [place] [address] [phone] [id number] MENA DOMINIQUE Self - patient is the [...]
[2024-08-28 07:35] LABS: MANUAL DIFF FLAG NO
[2024-08-28 08:27] LABS: Basophils Percent Auto 0.5 % (0-2); Eosinophils Absolute Auto 0.2 X10*3/uL (0.0-0.4); Eosinophils Percent Auto 3.7 % (0-4); Hematocrit 28.7 % (37.0-47.0); Imm Gran Abs Auto 0.01 X10*3/uL (0.00-0.03); Imm Gran Pct Auto 0.2 % (0.0-0.4); Lymphocytes Absolute Auto 0.7 X10*3/uL (1.2-4.9); Lymphocytes Percent Auto 16.7 % (20-40); Mean Corpuscular HGB Conc 31.4 g/dl (31.0-35.0); Mean Corpuscular Hemoglobin 31.5 pg (27.0-33.0); Mean Corpuscular Volume 100.3 fL (80.0-98.0); Mean Platelet Volume 11.5 fL (9.4-12.3); Monocytes Absolute Auto 0.4 X10*3/uL (0.1-1.2); Neutrophils Percent Auto 69.9 % (45-73); Platelet Count 123 X10*3/uL (160-400); Red Blood Count 2.86 X10*6/uL (4.20-5.50); Red Cell Distribution Width 13.8 % (11.0-16.0); White Blood Count 4.3 X10*3/uL (4.8-10.8)
[2024-08-28 09:00] LABS: Anion Gap 14 (12-20); Blood Urea Nitrogen 99 mg/dL (9-16); Carbon Dioxide 20 mmol/L (22-29); Chloride 112 mmol/L (96-108); Estimated Glomerular Filt Rate 13; Iron 85 mcg/dL (30-160); Percent Iron Saturation 25 % (15-50); Potassium 5.4 mmol/L (3.3-5.1); Sodium 141 mmol/L (135-145); Total Iron Binding Capacity 344 mcg/dL (228-428); Unsaturated Iron Binding 259 ug/dL
[2024-08-28 09:19] LABS: Ferritin 50 ng/mL (10-250); Vitamin D 25-OH Total 37.3 ng/mL (>30)
[2024-08-28 10:25] LABS: Parathyroid Hormone Intact 289.2 pg/mL (8.7-77.1)
== END 2024-08-28 07:25 | disposition home or self-care (01) ==
LOC: HO.LAB 07:24
PROVIDERS: PCP Internal Medicine Medical Oncology; Visit Provider Internal Medicine Nephrology
DX: N18.4 Chronic kidney disease, stage 4 (severe) (principal)
CPT/HCPCS: 36415; 80051; 82306; 82310; 82565; 82728; 83540; 83970; 84520; 85025

== ENCOUNTER 2024-08-31 10:59 | Outpatient (AMB) | payer MEDICARE, SELFPAY ==
--- NOTE | 2024-08-31 11:30 | HO.NEPHOV_ITS ---
Vital Signs 08/31/24 11:32 Height 5 ft 4 in Weight 112 lb 2 oz BMI 19.2 BP 150/62 H Blood Pressure Location Rt brachial Position Sitting Pulse 57 Pulse Source Pulse Oximeter Pulse Oximetry (%) 98 Oxygen Delivery Method Room Air Intake Visit Reasons: CKD-LVM Scientific Affairs Manager Required: No Accompanied by: Self / Same As Patient Allergies No Known Allergies Allergy (Verified 08/31/24 11:32) HPI Comments Details: Jacy was seen in follow-up of her hypertension and advanced chronic kidney disease. She has not had any flare up of gout on her left foot. She is tolerating Allopurinol . She denies any uremic symptoms. She has not taken any nonsteroidal anti-inflammatories. Her blood pressure control is optimal. Her Amlodipine has been cut back due to edema. She maintains good hydration. She denies chest pain, shortness of breath, paroxysmal nocturnal dyspnea, ortho pnea or urinary symptoms. Her last 24 hour urine collection showed a GFR close to 18 mls/minute [facility] Medical History (Updated 06/02/24 @ 15:41 by Marquise Ashford MD) Degenerative arthritis of cervical spine Osteoarthritis Hypothyroidism Anemia Thrombocytopenia Chronic kidney disease DDD (degenerative disc disease) Rotator cuff arthropathy of right shoulder Neck pain Low back pain Single kidney Environmental allergies Asthma Surgical History Hx of nasal septoplasty History of tonsillectomy and adenoidectomy Hx of colonoscopy Hx of bilateral cataract extraction Social History Alcohol intake: current Alcohol intake frequency: holidays/special occasions only Review of Systems Const All systems reviewed & are unremarkable except as noted in HPI and below Physical Exam Vital Signs: Last Vital Signs Pulse 57 08/31/24 11:32 BP 150/62 H 08/31/24 11:32 Pulse Ox 98 08/31/24 11:32 Oxygen Delivery Method Room Air 08/31/24 11:32 BMI result Body Mass Index 19.2 Const General: comfortable and no acute distress Orientation/consciousness: patient oriented x3 HEENT Head: Yes normocephalic Mouth: Normal oral and palatal mucosa present Eyes EOM: EOMs intact bilaterally Neck Neck: Yes supple Resp Auscultation: clear to auscultation bilaterally Cardio Jugular venous distension: no JVD Rate: regular rate GI Palpation (GI): Soft to palpation Auscultation: normal bowel sounds Skin General skin exam: no rashes or lesions noted Neuro General: patient oriented x3 and moves all extremities Extrem General: Yes no pedal edema Office Meds epoetin darryl-epbx 10,000 unit/mL injection solution Performing Provider: Marquise Ashford MD Performing Location: [facility] [place] [place] [facility] Administered by: Marquise Ashford MD on 08/31/24 11:55 Dose Route Admin Location Dispensed Lot Number Expiration Date [facility] Heating Element Repairer 20,000 unit subcut LUE 2 mL [id number] 10/25/25 6994-9465-17 [employer] Results Reviewed Nephrology Results: Hgb 9.0 g/dl (12.0-16.0) L 08/28/24 WBC 4.3 X10*3/uL (4.8-10.8) L 08/28/24 Plt Count 123 X10*3/uL (160-400) L 08/28/24 Sodium 141 mmol/L (135-145) 08/28/24 Potassium 5.4 mmol/L (3.3-5.1) H 08/28/24 Chloride 112 mmol/L (96-108) H 08/28/24 Carbon Dioxide 20 mmol/L (22-29) L 08/28/24 BUN 99 mg/dL (9-16) H 08/28/24 Creatinine 3.45 mg/dL (0.5-1.4) H 08/28/24 Calcium 9.0 mg/dL (8.4-10.2) 08/28/24 PTH Intact 289.2 pg/mL (8.7-77.1) H 08/28/24 Assessment & Plan Assessment & Plan (1) Secondary hyperparathyroidism (of renal origin): Code(s): N25.81 - Secondary hyperparathyroidism of renal origin Category: Medical (2) Anemia in chronic kidney disease: Code(s): N18.9 - Chronic kidney disease, unspecified; D63.1 - Anemia in chronic kidney disease Category: Medical Qualifiers: Chronic kidney disease stage: stage 4 (GFR 15-29) Qualified Code(s): N18.4 - Chronic kidney disease, stage 4 (severe); D63.1 - Anemia in chronic kidney disease (3) Hypertension: Code(s): I10 - Essential (primary) hypertension Category: Medical Qualifiers: Hypertension type: secondary to other renal disorders Qualified Code(s): I15.1 - Hypertension secondary to other renal disorders (4) CKD (chronic kidney disease) stage 4, GFR 15-29 ml/min: Code(s): N18.4 - Chronic kidney disease, stage 4 (severe) Category: Medical (5) Gout: Code(s): M10.9 - Gout, unspecified Category: Medical Qualifiers: Gout site: foot Gout etiology: due to renal impairment Chronicity: acute Laterality: left Qualified Code(s): M10.372 - Gout due to renal impairment, left ankle and foot Plan Jacy has left atrophic kidney. She has progressive renal dysfunction or many years. Her serum creatinine is fairly stable. Her last cr cl is close to 18 mls/mt. She does not have any uremic symptoms. Her blood pressure is at goal at home . She can continue current dose of amlodipine & allopurinol daily. She maintains good hydration. She avoids nonsteroidal anti-inflammatories. I discussed with her regarding options of renal replacement therapy as well as transplantation( referred to [facility]). All her questions during this visit were answered. Follow-up appointment given Orders: Orders AMB Epoetin Injection Practice Supplied Today D63.1 - Anemia in chronic kidney disease, N18.4 - Chronic kidney disease, stage 4 (severe) Creatinine Today D63.1 - Anemia in chronic kidney disease, I15.1 - Hypertension secondary to other renal disorders, N18.4 - Chronic kidney disease, stage 4 (severe), N25.81 - Secondary hyperparathyroidism of renal origin Electrolytes Today D63.1 - Anemia in chronic kidney disease, I15.1 - Hypertension secondary to other renal disorders, N18.4 - Chronic kidney disease, stage 4 (severe), N25.81 - Secondary hyperparathyroidism of renal origin Complete Blood Count Auto Diff 1 Month D63.1 - Anemia in chronic kidney disease, I15.1 - Hypertension secondary to other renal disorders, N18.4 - Chronic kidney disease, stage 4 (severe), N25.81 - Secondary hyperparathyroidism of renal origin Blood Urea Nitrogen Today D63.1 - Anemia in chronic kidney disease, I15.1 - Hypertension secondary to other renal disorders, N18.4 - Chronic kidney disease, stage 4 (severe), N25.81 - Secondary hyperparathyroidism of renal origin Phosphorus Today D63.1 - Anemia in chronic kidney disease, I15.1 - Hypertension secondary to other renal disorders, N18.4 - Chronic kidney disease, stage 4 (severe), N25.81 - Secondary hyperparathyroidism of renal origin Coding Level of Care Code Est Pt Level 4 (28955) Diagnoses Secondary hyperparathyroidism (of renal origin) N25.81 Anemia in stage 4 chronic kidney disease N18.4; D63.1 Chronic kidney disease stage: stage 4 (GFR 15-29) Hypertension secondary to other renal disorders I15.1 Hypertension type: secondary to other renal disorders CKD (chronic kidney disease) stage 4, GFR 15-29 ml/min N18.4 Acute gout due to renal impairment involving left foot M10.372 Gout site: foot Gout etiology: due to renal impairment Chronicity: acute Laterality: left
[2024-08-31 11:32] VITALS: BP 150/62; PULSE 57; O2SAT 98; BMI 19.2
--- OUTSIDE RECORDS SUMMARY | 2024-08-31 12:38 | XMS_ITS | Continuity of Care Document ---
Author Organization [facility] Address [address] [place] [address] Phone [phone] Social History Type Date Description Comments Sex Unknown Medical Devices Description No Information Available Encounters Description No Information Available Assessments Description No Information Available Plan of Treatment No Information Available Functional Status Description No Information Available Mental Status Description No Information Available Referrals Description No Information Available
--- OUTSIDE RECORDS SUMMARY | 2024-08-31 12:38 | XMS_ITS ---
Author Organization Meño Edwards III, MD Address [address] [place] [address] Care Team Providers Care Senior Electronics Engineer Name Role Phone Meño Edwards Primary [...] Provider Diagnosis Meño Edwards III, MD [address] [place] [address] [place] [address] 08/31/2024 Meño Edwards Plan Of Treatment Medication Medication Name Sig Start Date Stop Date Notes amLODIPine Besylate 5 MG 1 tablet Orally Once a day for 30 days Next Appt Details Provider Name:Meño Edwards, 11/21/2024 09:30:00 AM, [address] [place] [address] [place], [address], Provider Name:Meño Edwards, 04/22/2025 09:30:00 AM, [address] [place] [address] [place], [address], Progress Notes * Jacy DOMINIQUE SDOB: [birth year] (69 yo F)Acc No.[id number]:08/31/2024 Patient:?Jacy DOMINIQUE :1955???Age:69 Y???Sex:Female Address: [address], [place] [address] * Refills? Refill amLODIPine Besylate Tablet, 5 MG, Orally, 30 Tablet, 1 tablet, Once a day, 30 days, Refills=11 * true * Date:? Generated for Timothy kennedy/Ngoc/Yogesh on:?08/31/2024 12:38 PM EST
--- OUTSIDE RECORDS SUMMARY | 2024-08-31 12:39 | XMS_ITS ---
Author Organization Meño Edwards III, MD Address [address] [address] Care Team Providers Care Wood Heel Flap Trimmer Name Role Phone Meño Edwards Primary Care Provider [phone] REASON FOR VISIT Message Social History Sex Assigned At : Social History Observation Description Sex Assigned At Female Encounters Encounter Location Date Provider Diagnosis Meño Edwards III, MD [address] [place] [address] [place] [address] 06/14/2024 Meño Edwards Plan Of Treatment Next Appt Details Provider Name:Meño Edwards, 11/21/2024 09:30:00 AM, [address] [place] [address] [place], [address], Provider Name:Meño Edwards, 04/22/2025 09:30:00 AM, [address] [place] [address] [place], [address], Progress Notes * Jacy DOMINIQUE SDOB: [birth year] (69 yo F)Acc No.[id number]:06/14/2024 Patient:?Jacy DOMINIQUE :1955???Age:69 Y???Sex:Female Address:[address] [place] [address] * true * Date:? Generated for Printi ng/Faxing/eTransmitting on:?08/31/2024 12:39 PM EST
--- OUTSIDE RECORDS SUMMARY | 2024-08-31 12:39 | XMS_ITS ---
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 Problem Gouty arthropathy (379749706) Lead-induced gout, 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 024 Generated for Timothy kennedy/Ngoc/Angelaitting on:?08/31/2024 12:39 PM EST History and Physical Notes * [...]
--- OUTSIDE RECORDS SUMMARY | 2024-08-31 12:39 | XMS_ITS | Data Portability ---
Author Organization [facility] Esthela ROYAL_Sarah_ Address [address] [place] [address] Care Team Providers Care Registered Nurse Hh Case Manager Name Role Phone KAR COVARRUBIAS Primary Care Provider [phone] Assessment No assessment recorded. Plan of Treatment Reminders Order Date Submit Date Provider Last Modified By Organization Details Last Modified Time Details Appointments None recorded. Lab rapid SARS CoV 2 Ag, QL IA, respiratory specimen 2023 024 In-Office Order, Internal Use Only DO Not Attach Compendium DO Not Attach Compendium, Do Not Delete/merge, [id number] 08:11:31 rapid flu (A+B) 2023 024 In-Office Order, Internal Use Only DO Not Attach Compendium DO Not Attach Compendium, Do Not Delete/merge, [id number] 4 08:11:32 SARS coronavirus RNA, qual, PCR, unspecified specimen 2020 021 [email or web address] In-Office Order, Internal Use Only DO Not Attach Compendium DO Not Attach Compendium, Do Not Delete/merge, [id number] 1 08:40:48 rapid SARS CoV 2 Ag, QL IA, respiratory specimen 2019 020 [email or web address] 5 In-Office Order, Internal Use Only DO Not Attach Compendium DO Not Attach Compendium, Do Not Delete/merge, [id number] 0 11:45:25 rapid SARS CoV 2 Ag, QL IA, respiratory specimen 2019 020 In-Office Order, Internal Use Only DO Not Attach Compendium DO Not Attach Compendium, Do Not Delete/merge, [id number] 0 15:44:46 Referral None recorded. Procedures cerumen removal (PROC) 2023 BISMARK In-Office Order, Internal Use Only DO Not Attach Compendium DO Not Attach Compendium, Do Not Delete/merge, [id number] 07:23:24 pulse oximetry (PROC) 2020 021 [email or web address] 5 In-Office Order, Internal Use Only DO Not Attach Compendium DO Not Attach Compendium, Do Not Delete/merge, [id number] 1 08:40:48 pulse oximetry (PROC) 2019 020 [email or web address] 5 In-Office Order, Internal Use Only DO Not Attach Compendium DO Not Attach Compendium, Do Not Delete/merge, [id number] 0 11:45:25 pulse oximetry (PROC) 2019 020 In-Office Order, Internal Use Only DO Not Attach Compendium DO Not Attach Compendium, Do Not Delete/merge, [id number] 0 16:31:34 Surgeries None recorded. Imaging None [...] By Organization Details Last Modified Time 09/22/2020 [id number] learning about healthy weight [email or web address] Not available 09/22/2020 08:40:48 body mass index: care instructions [email or web address] Not available 09/22/2020 08:40:48 eating healthy foods: care instructions [email or web address] Not available 09/22/2020 08:40:48 9 things to do i f you've been exposed to covid-19 [email or web address] Not available 09/22/2020 08:40:48 12/23/2023 [id number] Acute Sinusitis: Care Instructions Not available 12/23/2023 [...] DO Not Attach Compendium, Do Not Delete/merge, [id number] 09/22/2020 08:20:07 05/27/20 20 05/27/2020 pulse oxime try (PROC ) pulse oximetry 99% room air Not Available In-Office Order Internal Use Only DO Not Attach Compendium DO Not Attach Compendium, Do Not Delete/merge, [id number] 05/27/2020 15:12:33 05/27/20 20 05/27/2020 rapid SARS CoV 2 Ag, QL IA, respi rator y speci men RAPID Nasal Covid negati ve Not Available In-Office Order Internal Use Only DO Not Attach Compendium DO Not Attach Compendium, Do Not Delete/merge, [id number] 05/27/2020 15:12:31 06/13/20 20 06/13/2020 rapid SARS CoV 2 Ag, QL IA, respi rator y speci men RAPID Nasal Covid negati ve Not Available In-Office Order Internal Use Only DO Not Attach Compendium DO Not Attach Compendium, Do Not Delete/merge, [id number] 06/13/2020 10:52:21 06/13/20 20 06/13/2020 pulse oxime try (PROC ) pulse oximetry 98% room air Not Available In-Office Order Internal Use Only DO Not Attach Compendium DO Not Attach Compendium, Do Not Delete/merge, [id number] 06/13/2020 10:52:23 09/23/19 21 09/22/2020 SARS coron aviru s RNA, qual, PCR, unspe cifie d speci men RAPID Bowles PCR COVID/Nasal negati ve Not Available In-Office Order Internal Use Only DO Not Attach Compendium DO Not Attach Compendium, Do Not Delete/merge, [id number] 09/22/2020 08:20:30 12/23/19 24 12/23/2023 rapid flu (A+B) Flu A negati ve Not Available In-Office Order Internal Use Only DO Not Attach Compendium DO Not Attach Compendium, Do Not Delete/merge, [id number] 12/23/2023 07:26:42 12/23/19 24 12/23/2023 rapid flu (A+B) Flu B negati ve Not Available In-Office Order Internal Use Only DO Not Attach Compendium DO Not Attach Compendium, Do Not Delete/merge, [id number] 12/23/2023 07:26:42 12/23/19 24 12/23/2023 rapid SARS CoV 2 Ag, QL IA, respi rator y speci men RAPID Nasal Covid negati ve Not Available In-Office Order Internal Use Only DO Not Attach Compendium DO Not Attach Compendium, Do Not Delete/merge, [id number] 12/23/2023 07:26:23 Result Notes None recorded. Problems [...] Updated DateTime 0 162.56 cm 15.8 kg/m2 10378.5 g 62 /min 97.2 [degF] 99 % 99 % 152 mm[Hg] 49 mm[Hg] Lorrie Lara [place] - [facility] 0 16:30:34 Date Recorded Body height Body mass index (BMI) Body weight Heart rate Body temperature Oxygen saturation Oxygen saturation in Arterial blood by Pulse oximetry Provider Name and Address Organization Details Last Updated DateTime 0 162.56 cm 16 kg/m2 63125.0 9 g 64 /min 97.9 [degF] 98 % 98 % Nani Hutchison[facility] 0 10:51:05 Date Recorded Body height Body mass index (BMI) Body weight Heart rate Oxygen saturation Oxygen saturation in Arterial blood by Pulse oximetry Body temperature Provider Name and Address Organization Details Last Updated DateTime 1 162.56 cm 17.2 kg/m2 69725.2 4 g 71 /min 99 % 99 % 97.9 [degF] Nani NolbertotommieMil [facility] 1 08:18:56 Date Recorded Body height Body mass index (BMI) Body weight Heart rate Body temperature Oxygen saturation Oxygen saturation in Arterial blood by Pulse oximetry Systolic blood pressure Diastolic blood pressure Provider Name and Address Organization Details Last Updated DateTime 4 162.56 cm 17.7 kg/m2 86447.7 3 g 85 /min 97.5 [degF] 99 % 99 % 117 mm[Hg] 76 mm[Hg] Gregorio Stuart [place] - [facility] 4 07:23:08 Social History Question Answer Notes LastModified by Organizat ion Details LastModified Time Tobacco Smoking Status Never Smoker Gregorio Stuart [place] - [facility] 12/23/2023 07:23:42 Do You Have An [...] available 05/27/2020 If Patient Spent Time In [facility] - Does The Patient Live In [facility]? No Information not available 05/27/2020 In The 14 Days Before Symptom Onset, Have You Had Close Contact With A Person Who Is Under Investigation For COVID-19 While That Person Was Ill? No Information not available 05/27/2020 In The 14 Days Before Symptom Onset, Did The Patient Spend Time In [facility]? No Information not available 05/27/2020 Have You [...] influenza, unspecified formulation 03/26/2020 completed KEN Garcia [facility] 12/23/2023 07:23:50 Past Encounters Encounter ID Performer Location Encounter Start Date Encounter Closed Date Diagnosis/Indication Diagnosis SNOMED-CT Code Diagnosis ICD10 Code Diagnosis Note [id number] Omaira Valenzuela PA-C [address] [address] 05/27/2020 13:31:56 06/06/2020 14:49:42 Exposure to SARS-CoV-2 202109416 Z20.828 NEG RAPID [id number] Omaira Valenzuela PA-C [address] [address] 06/13/2020 10:15:38 06/13/2020 18:06:15 Suspected COVID-19 924749317 Z03.818 neg rapid covid [id number] Omaira Valenzuela PA-C [address] [address] 09/22/2020 08:09:28 09/22/2020 10:47:30 Exposure to SARS-CoV-2 663521970 Z20.828 You were swabbed for Covid-19 today [...] the facility can prepare for your arrival [id number] Apryl Rea PA-C [facility] [place] [address] [facility] [address] [place] [address] 12/23/2023 06:58:27 12/23/2023 13:22:50 Acute bacterial sinusitis 99091586 J01.90 - Rapid flu and COVIDWill initiate empiric antibiotic therapy as detailed below as this has been ongoing over a week now. Supportive and symptomati c management discussed. Impacted c erumen of bilateral ears 8008683891 027440 H61.23 She did undergo successful bilateral lavage, [...] Name 05/27/2020 1 [place] Jacy Mixonhelga [id number] Jacy Mixonhelga 05/27/2020 2 [facility] [id number] Jacy Mixonhelga [id number] Jacy Mixonhelga 06/13/2020 1 [place] Jacy Mixonhelga [id number] Jacy iMxonhelga 06/13/2020 2 [facility] [id number] Jacy Mixonhelga [id number] Jacy Mc Yusuf 09/22/2020 1 [place] Jacy Goldberg [id number] Jacy Goldberg 09/22/2020 2 [facility] [id number] Jacy Goldberg [id number] Jacy Goldberg 12/23/2023 1 [place] Jacy Goldberg [id number] Jacy Goldberg 12/23/2023 2 [facility] [id number] Jacy Goldberg [id number] Jacy Goldberg Notes Date Note Type Note Provider Name and Address Organization Details Recorded Time 05/27/2020 text/html Needs covid test to move father into long term Omaiar Valenzuela PA-C [address] [place], [address], [facility] 05/28/2020 08:19:04 06/13/2020 text/html [...] for COVID testing. Patient is asymptomatic. [facility], [address], [facility] 06/13/2020 11:45:32 09/22/2020 text/html Patient presents today for COVID testing. Patient is asymptomatic. [facility] [place], [address], [facility] 09/22/2020 08:40:54 12/23/2023 text/html 68yo female presents with headache, sinus pressure/congestion , dizziness, and fatigue x1 week. Apryl Rea PA-C [address] [place], [address], [facility] 12/23/2023 08:21:05 OBGyn Episode No OBEpisode recorded.
--- OUTSIDE RECORDS SUMMARY | 2024-08-31 12:39 | XMS_ITS | Patient Health Record ---
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 Problem 6243351624 Toxic effect of lead and its compounds, accidental (unintentional) , initial encounter (T56.0X1A) Active confirmed Problem 610455379 Lead-induced gout, 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 Vital Signs Height 5 ft 4 in in 09/09/2023 Weight 103 lbs 09/09/2023 BMI 17.68 kg/m2 09/09/2023 Encounters Encounter Location Date Provider Diagnosis [facility] [address] 09/09/2023 London Butt Pain in left foot M79.672 ; Toxic effect of lead and its compounds, accidental (unintentional), initial encounter T56.0X1A and Lead-induced gout, left ankle and foot M10.[address] [address] 09/08/2023 Vin Quevedo Assessments Encounter Date Diagnosis [...] Date Coverage End Date Medicare National Govt [employer] [facility] [address] [facility] [address] [id number] Jacy Goldberg Self - patient is the insured [employer] [address] [place] [address] [id number] Jacy Goldberg Self - patient is the insured Medical (General) History Medical History History ICD Code asthma Back pain CAD (Cholesterol) Cataracts Measles Mumps Kidney disease chronic sinusitis Warts Surgical History Surgery Date(Month/Year) tonsillectomy and adenoidectomy wisdom teeth extraction 1971 cataract surgery 10/28/2015 deviated septum repair 1976
--- OUTSIDE RECORDS SUMMARY | 2024-08-31 12:39 | XMS_ITS | Clinical Summary ---
Author Organization [facility] Address [address] [place] [address] Care Team Providers Care Tassel Clipper Name Role Phone Unavailable Primary Care Provider [...]
--- OUTSIDE RECORDS SUMMARY | 2024-08-31 12:39 | XMS_ITS ---
Author Organization [facility] Address [address] [facility] [place] [address] Care Team Providers Care Warehouse Forklift Operator Name Role Phone Meño Edwards MD Primary Care Provider Unavailab London Braswell Unavailable [phone] Vin Quevedo Unavailable [phone] REASON FOR VISIT Swollen ft/ pain Encounters Encounter Location Date [facility] [address] [address] 09/08/2023 Vin Quevedo Plan Of Treatment No Information Progress Notes * Jacy DOMINIQUE SDOB: [birth year] (68 yo F)Acc No.[id number]:09/08/2023 Patient:?Jacy Dominique :1955???Age:68 Y???Sex:Female Address:[address] [place], [address] * true * Date:? Generated for Deepikai brent/Ngoc/eTransmitting on:?08/31/2024 12:39 PM EST
--- OUTSIDE RECORDS SUMMARY | 2024-08-31 12:40 | XMS_ITS ---
Author Organization Meño Edwards III, MD Address [address] [place] [address] Care Team Providers Care Vessel Liner Name Role Phone Meño Edwards Primary Care Provider [phone] Allergies Allergen (clinical drug ingredient) Drug/Non Drug [...] Date Provider Diagnosis Meño Edwards III, MD [address] [place] [address] [address], [place] [address] 08/23/2024 Meño Edwards Underweight R63.6 ; CKD [...] list for a kidney transplant by her sterile processing manager. 08/23/2024 Mild intermittent asthma without complication (ICD-10 - J45.20) She has had no difficulty with asthma lately. She has an inhaler which she has not been using. 08/23/2024 Thrombocytopenia (ICD-10 - D69.6) She has had no bleeding and is avoiding aspirin. 08/23/2024 Thyroiditis (ICD-10 - E06.9) This is not an active problem. She remains under the care of her spreader box operator. She is asymptomatic at this time. 08/23/2024 [...] follow-up Provider Name:Meño Edwards, 11/21/2024 09:30:00 AM, [address] [place] [address] [address], [place], [address], Provider Name:Meño Edwards, 04/22/2025 09:30:00 AM, [address] [place] [address] [address], [place], [address], Progress Notes * Jacy DOMINIQUE SDOB: [birth year] (69 yo F)Acc No.[id number]:08/23/2024 Progress Notes Patient:?Jacy DOMINIQUE S Provider:?Meño Edwards MD :1955???Age:69 Y???Sex:Female D ate:08/23/2024 Address:[address] [place] [address] Subjective: * Chief Complaints: * ???UnderweightPancytopeniaAs thmaCKDGoutMacular degenerationOn kidney transplant list * HPI: ???COVID-19 Screening:? moving to [place] dont know when. ?Questions?Have you had any [...] her new glasses. She has seen an sorting livestock worker twice this year for this issue. The [...] History:?wisdom leif th extraction tonsillectomy septum repair [id number] right cataract surgery 2012colonoscopy, adenomatous polyp 2004colonoscopy, [...] Filt Rate 13 15 14 * Lab:[facility] P[facility] * Collection Date 08/21/2024 [...] list for a kidney transplant by her sterile processing manager.???2.?Underweight - R63.6???Notes :Her weight has been stable [...] She remains under the care of her spreader box operator. She is asymptomatic at this time.???6.?Osteoporosis - [...] Edwards MD Date:?07/29 Generated for Timothy kennedy/Ngoc/eTalexsmitting on:?08/31/2024 12:40 PM EST History and Physical Notes * [...]
--- OUTSIDE RECORDS SUMMARY | 2024-08-31 12:40 | XMS_ITS | Patient Health Record ---
Author Organization [facility] Address [address] [place] [address] Care Team Providers Care Airplane Patroller Name Role Phone Meño Edwards MD Primary Care Provider UnavailFady Monk Jr Unavailable Allergies Allergen (clinical drug ingredient) Drug/Non Drug Allergy documented on EMR Reaction Allergy Type Onset Date Status dust,pollen,mold,pet dander (uncoded) Unknown Allergy Active Reason For Referral No [...] Oil + D3 Active Tylenol PRN Active Immunizations Vaccine Route Administration Date Status Comme nts Influenza Unknown 02/13/2020 Administered Social History Alcohol Screen Question Answer Notes Did you have a drink contain ing alcohol in the past year? Yes How often did you have a dri nk containing alcohol in the past year? Monthly or less (1 point) How often did you have 6 or more drinks on one occasion in the past year? Never (0 point) Points 1 Interpretation Negative Problems Problem Type SNOMED Code ICD Code Onset Dates Problem Status W/U Status Risk Notes Problem 106887437 Colon cancer screening (V76.51) Active confirmed Problem 076080984 Colon cancer screening (Z12.11) Active confirmed Problem 648543340 Personal history of colonic polyps (Z86.010) Active confirmed Problem 569093558 Long-term curren t use of high risk medication other than anticoagulant (Z79.899) Active confirmed Plan Of Treatment Future Test Test Name Order Date COLONOSCOPY 04/01/2014 COLONOSCOPY 07/28/2020 Insurance Providers Payer Name Payer Address Payer Phone Subscriber Number Group Number Insured Name Patient Relationship to Insured Coverage Start Date Coverage End Date MEDICARE OF [place] [address] [place] [address] [id number] MENA DOMINIQUE Self - patient is the insured MEDEX ATT[employer] CLAIMS [address] [place] [address] [phone] [id number] MENA DOMINIQUE Self - patient is the insured Medical (General) History Medical History History ICD Code disc disease asthma abnormal liver function tests right rotator cuff problems personal history of colon po lyps. Last colonoscopy 07/19/14, normal, five-year followup do 07/16 thyroiditis Chronic Renal Disease - left Surgical History Surgery Date(Month/Year) tonsillectomy septum repair wisdom teeth extraction cyst removal-face cataract-lens implants- bi lateral
--- OUTSIDE RECORDS SUMMARY | 2024-08-31 12:40 | XMS_ITS ---
Author Organization [facility] Address [address] [facility] [place] [address] Care Team Providers Care Building Rental Manager Name Role Phone Grace BAKER, Meño Primary Care Provider Unavailab London Braswell Unavailable [phone] Vin Quevedo Unavailable [phone] REASON FOR VISIT Seen Sooner Encounters Encounter Location Date Provider Diagnosis [facility] [address] [address] 10/06/2023 Vin Quevedo Plan Of Treatment No Information Progress Notes * Jacy DOMINIQUE SDOB: [birth year] (69 yo F)Acc No.[id number]:10/06/2023 Progress Note Patient:?BEVERLEYPillo PEREIRAe Alexandro Provider:?Vin Quevedo DPM :1955???Age:68 Y???Sex:Female D ate:10/06/2023 Address:[address] [place] [id number] Pcp:Meño Edwards MD Subjective: * Chief Complaints: [...] Quevedo DPM Date:?2023 Generated for Timothy kennedy/Ngoc/Yogesh on:?08/31/2024 12:39 PM EST
--- OUTSIDE RECORDS SUMMARY | 2024-08-31 12:40 | XMS_ITS | Clinical Summary ---
Author Organization [facility] Address [address] [place] [address] Phone Care Team Providers Care Roller Skater Name Role Phone Meño Edwards MD Primary Care Provider [phone] Allergies Active Allergy Reactions Criticality Noted Date [...] patient's age to complete this topic Insurance [facility] MEDICARE [facility] MEDICARE Care Teams Roller Skater Relationship Specialty Start Date End Date Meño Edwards MD [address] [place], [place] [phone] [place] PCP - General 07/07/20
== END 2024-08-31 12:02 | disposition home or self-care (01) ==
PROVIDERS: PCP Internal Medicine Medical Oncology; Visit Provider Internal Medicine Nephrology
DX: N25.81 Secondary hyperparathyroidism of renal origin (principal); N18.4 Chronic kidney disease, stage 4 (severe); D63.1 Anemia in chronic kidney disease; I15.1 Hypertension secondary to other renal disorders; M10.372 Gout due to renal impairment, left ankle and foot
CPT/HCPCS: 99214

== ENCOUNTER → 2024-08-31 10:59 | Outpatient (BNVA) | payer MEDICARE, SELFPAY | PROVIDERS: PCP Internal Medicine Medical Oncology; Visit Provider Internal Medicine Nephrology | DX: I15.1 Hypertension secondary to other renal disorders (principal); N25.81 Secondary hyperparathyroidism of renal origin; D63.1 Anemia in chronic kidney disease; N18.4 Chronic kidney disease, stage 4 (severe); M10.372 Gout due to renal impairment, left ankle and foot | CPT/HCPCS: 36415; 80051; 82565; 84100; 84520; 85025; 96372; 99212; Q5106 ==

== ENCOUNTER 2024-08-31 12:14 | Outpatient (REF) | payer MEDICARE, SELFPAY ==
[2024-08-31 12:59] LABS: MANUAL DIFF FLAG NO
[2024-08-31 13:02] LABS: Basophils Percent Auto 0.2 % (0-2); Eosinophils Absolute Auto 0.2 X10*3/uL (0.0-0.4); Eosinophils Percent Auto 3.2 % (0-4); Hematocrit 29.3 % (37.0-47.0); Hemoglobin 9.1 g/dl (12.0-16.0); Imm Gran Abs Auto 0.01 X10*3/uL (0.00-0.03); Imm Gran Pct Auto 0.2 % (0.0-0.4); Lymphocytes Absolute Auto 0.7 X10*3/uL (1.2-4.9); Lymphocytes Percent Auto 15.6 % (20-40); Mean Corpuscular HGB Conc 31.1 g/dl (31.0-35.0); Mean Corpuscular Hemoglobin 31.2 pg (27.0-33.0); Mean Corpuscular Volume 100.3 fL (80.0-98.0); Mean Platelet Volume 11.5 fL (9.4-12.3); Monocytes Absolute Auto 0.4 X10*3/uL (0.1-1.2); Monocytes Percent Auto 7.8 % (2-11); Neutrophils Absolute Auto 3.4 x10*3/uL (2.0-8.3); Platelet Count 123 X10*3/uL (160-400); Red Blood Count 2.92 X10*6/uL (4.20-5.50); Red Cell Distribution Width 13.8 % (11.0-16.0); White Blood Count 4.6 X10*3/uL (4.8-10.8)
[2024-08-31 13:08] LABS: Anion Gap 13 (12-20); Blood Urea Nitrogen 98 mg/dL (9-16); Carbon Dioxide 22 mmol/L (22-29); Chloride 112 mmol/L (96-108); Estimated Glomerular Filt Rate 13; Phosphorus 4.6 mg/dL (2.7-4.5); Potassium 5.9 mmol/L (3.3-5.1); Sodium 141 mmol/L (135-145)
--- OUTSIDE RECORDS SUMMARY | 2024-08-31 13:57 | XMS_ITS | Clinical Summary ---
Author Organization [facility] Address [address] [place] [address] Care Team Providers Care Chief Cruiser Name Role Phone Unavailable Primary Care Provider [...]
--- OUTSIDE RECORDS SUMMARY | 2024-08-31 13:57 | XMS_ITS | Clinical Summary ---
Author Organization [facility] Address [address] [place] [address] Phone Care Team Providers Care It Applications Developer Name Role Phone Meño Edwards MD Primary Care Provider [phone] Allergies Active Allergy Reactions Criticality Noted Date [...] patient's age to complete this topic Insurance [facility] MEDICARE [facility] MEDICARE Care Teams It Applications Developer Relationship Specialty Start Date End Date Meño Edwards MD [address] [place], [place] [id number] [place], [place] PCP - General 07/07/20
--- OUTSIDE RECORDS SUMMARY | 2024-08-31 13:57 | XMS_ITS | Continuity of Care Document ---
Author Organization [facility] Address [address] [place] [address] Phone [phone] Social History Type Date Description Comments Sex Unknown Medical Devices Description No Information Available Encounters Description No Information Available Assessments Description No Information Available Plan of Treatment No Information Available Functional Status Description No Information Available Mental Status Description No Information Available Referrals Description No Information Available
--- OUTSIDE RECORDS SUMMARY | 2024-08-31 13:58 | XMS_ITS | Patient Health Record ---
Author Organization Meño Edwards III, MD Address [address] [place] [address] Care Team Providers Care Stepdown Nurse Name Role Phone Meño Edwards Primary Care Provider Allergies Allergen (clinical drug ingredient) Drug/Non Drug Allergy documented on EMR Reaction Allergy Type Onset Date Status Seasonale Unknown Drug Allergy Active Results Component Value Reference Range Notes XR foot LT min 3V Reviewed date:09/09/2023 07:59:44 PM Interpretation: Performing Lab: Notes/Report: [address] [address] XRay Report Signed Patient: Jacy Goldberg MR#: [id number] [birth year] : 1955 Acct:[id number] Age/Sex: 68 / F ADM Date: 09/07/23 Loc: HO.XRAY Attending Dr: Meño Edwards MD Ordering Physician: Meño Edwards MD Date of Service: 09/07/23 Procedure(s): XR foot LT min 3V Accession Number(s): [id number] cc: Meño Edwards MD EXAMINATION: XR FOOT, [...] by Tressa Lucero MD in OV> 09/07/23 0254 DD/ 162 TD/TT: Cnc Manager: EMILY [address] [address] XRay Report Signed Patient: Shubham Goldberg MR#: [id number] [birth year] : 1955 Acct:[id number] Age/Sex: 68 / F ADM Date: 09/07/23 Loc: HO.XRAY Attending Dr: Meño Edwards MD Ordering Physician: Meño Edwards MD Date of Service: 09/07/23 Procedure(s): XR geovanny t LT min 3V Accession Number(s): [id number] cc: Meño Edwards MD EXAMINATION: XR FOOT, [...] in OV> 09/07/23 174 DD/ 25 TD/TT: Cnc Manager: EMILY URINE DIP STICK Reviewed date:04/22/2024 [...] ff Reviewed date:09/09/2023 07:59:44 PM Interpretation: Performing Lab:[facility], [address] [place] [address] Notes/Report: White Blood Count 7.3 4.8-10.8 X10*3/uL [...] Electrolytes Reviewed date:09/09/2023 07:59:44 PM Interpretation: Performing Lab:[address] [address] Notes/Report: Sodium 145 135-145 mmol/L Potassium 4.8 3.3-5.1 mmol/L Chloride 111 96-108 mmol/L Carbon Dioxide 24 22-29 mmol/L Anion Gap 15 12-20 Blood Urea Nitrogen Reviewed date:09/09/2023 07:59:44 PM Interpretation: Performing Lab:[address] [address] Notes/Report: Blood Urea Nitrogen 76 9-16 mg/dL Creatinine Reviewed date:09/09/2023 07:59:44 PM Interpretation: Performing Lab:[address], [place] [address] Notes/Report: Creatinine 3.26 0.5-1.4 mg/dL Estimated Glomerular Filt Rate 14 NOTE: For -[place] Citizen individuals, multiply the result by 1.210. Chronic Kidney Disease: Estimated GFR < 60 mL/min/1.73m2 Severe Kidney Disease: Estimated GFR < 15 mL/min/1.73m2 Calcium Reviewed date:09/09/2023 07:59:44 PM Interpretation: Performing Lab:[facility], [address] [place] [phone] Notes/Report: Calcium 9.7 8.4-10.2 mg/dL Phosphorus Reviewed date:09/09/2023 07:59:44 PM Interpretation: Performing Lab:[facility], [address] [place] [phone] Notes/Report: Phosphorus 4.3 2.7-4.5 mg/dL IRON PROFILE Reviewed date:09/09/2023 07:59:44 PM Interpretation: Performing Lab:[facility], [address] [place] [phone] Notes/Report: Iron 75 30-160 mcg/dL Total Iron Binding Capacity 337 228-428 mcg/dL Percent Iron Saturation 22 15-50 % Unsaturated Iron Binding 262 Ferritin Reviewed date:09/09/2023 07:59:44 PM Interpretation: Performing Lab:[facility], [address] [place] [phone] Notes/Report: Ferritin 66 10-250 ng/mL Vitamin D 25-OH Total Reviewed date:09/09/2023 07:59:44 PM Interpretation: Performing Lab:[facility], [address] [place] [phone] Notes/Report: Vitamin D 25-OH Total 43.8 >30 [...] Intact Reviewed date:09/09/2023 07:59:44 PM Interpretation: Performing Lab:[facility], [address] [facility], [place] [address] Notes/Report: Parathyroid Hormone Intact 102.8 8.7-77.1 pg/mL MM tomosynthesis screening B I Reviewed date:10/01/2023 07:36:00 PM Interpretation: Performing Lab: Notes/Report: [address] [place] [address] Mammography Report Signed Patient: Jacy Goldberg MR#: [id number] [birth year] : 1955 Acct:[id number] Age/Sex: 68 / F ADM Date: 09/19/23 Loc: HO.MAMMO Attending Dr: Meño Edwards MD Ordering Physician: Meño Edwards MD Results: 1Negativ e Date of Service: 09/19/23 Follow Up: 1 Year From [facility] Mammogram Procedure(s): MM tomosynthesis screening BI Accession Number(s): [id number] cc: Meño Edwards MD EXAMINATION: MM SCREENING [...] by Yari Byrne MD in OV> 09/26/23 163 DD/ 0850 TD/TT: Cnc Manager: [facility] [address] [place] [address] Mammography Report Signed Patient: Shubham Goldberg MR#: [id number] [birth year] : 1955 Acct:[id number] Age/Sex: 68 / F ADM Date: 09/19/23 Loc: MAMMJelly Attending Dr: Meño Edwards MD Ordering Physician: Meño Edwards MD Results: 1Negativ e Date of Service: 09/19/23 Follow Up: 1 Year From Orig inal Mammogram Procedure(s): MM tomosynthesis screening BI Accession Number(s): [id number] cc: Meño Edwards MD EXAMINATION: MM SCREENING DIGITAL BREAST TOMOSYNTHESIS, BILATERAL CLINICAL INFORMATION: Screening. Asymptomatic. COMPARISON: Mammography: This st udy is compared with prior exams dating back [...] in OV> 09/26/23 1638 DD/ 0850 TD/TT: Cnc Manager: MAMMOGRAM DIGITAL BILATERAL SCREEN Reviewed date:07/25/2024 11:01:55 AM Interpretation:undefined Performing Lab: Notes/Report: undefined Complete Blood Count Auto Di ff Reviewed date:02/26/2024 07:28:35 AM Interpretation: Performing Lab:[facility], [address] [place] [phone] Notes/Report: White Blood Count 4.7 4.8-10.8 X10*3/uL [...] Panel Reviewed date:02/26/2024 07:28:35 AM Interpretation: Performing Lab:[facility], [address] [place] [phone] Notes/Report: Sodium 142 135-145 mmol/L Potassium 4.8 3.3-5.1 mmol/L Chloride 108 96-108 mmol/L Carbon Dioxide 23 22-29 mmol/L Anion Gap 16 12-20 Blood Urea Nitrogen 66 9-16 mg/dL Creatinine 3.22 0.5-1.4 mg/dL Estimated Glomerular Filt Rate 14 NOTE: For -[place] Citizen individuals, multiply the result by 1.210. Chronic [...] Electrolytes Reviewed date:03/26/2024 06:07:59 AM Interpretation: Performing Lab:[address] [address] Notes/Report: Sodium 140 135-145 mmol/L Potassium 5.5 3.3-5.1 mmol/L Chloride 110 96-108 mmol/L Carbon Dioxide 21 22-29 mmol/L Anion Gap 15 12-20 Blood Urea Nitrogen Reviewed date:03/26/2024 06:07:59 AM Interpretation: Performing Lab:[facility], [address] [place] [address] Notes/Report: Blood Urea Nitrogen 63 9-16 mg/dL Creatinine Reviewed date:03/26/2024 06:07:59 AM Interpretation: Performing Lab:[facility], [address] [place] [phone] Notes/Report: Creatinine 3.04 0.5-1.4 mg/dL Estimated Glomerular Filt Rate 15 NOTE: For -[place] Citizen individuals, multiply the result by 1.210. Chronic Kidney Disease: Estimated GFR < 60 mL/min/1.73m2 Severe Kidney Disease: Estimated GFR < 15 mL/min/1.73m2 Creatinine Clearance Urine Reviewed date:03/26/2024 06:07:59 AM Interpretation: Performing Lab:[facility], [address] [place] [phone] Notes/Report: [id number] 0800 0800 Creatinine (CrCl) 3.04 0.5-1.4 mg/dL Creatinine Clearance 18.4 85-125 mL/min Creatinine, 24Hr Urine 0.8 1.0-2.0 G/Day Creatinine, mg/dL 40.82 Total Volume 24 Hour Urine 1974 Complete Blood Count Auto Di ff Reviewed date:04/15/2024 07:27:15 AM Interpretation: Performing Lab:[facility], [address] [place] [address] Notes/Report: White Blood Count 4.2 4.8-10.8 X10*3/uL [...] NRBC Abs Auto 0.000 0.0-0.012 X10*3/uL Comprehensive [place]. Panel Fa st Reviewed date:04/15/2024 07:27:15 AM Interpretation: Performing Lab:[facility], [address] [place] [phone] Notes/Report: Sodium 143 135-145 mmol/L Potassium 4.8 3.3-5.1 mmol/L Chloride 109 96-108 mmol/L Carbon Dioxide 26 22-29 mmol/L Anion Gap 13 12-20 Blood Urea Nitrogen 84 9-16 mg/dL Creatinine 3.13 0.5-1.4 mg/dL Estimated Glomerular Filt Rate 15 NOTE: For -[place] Citizen individuals, multiply the result by 1.210. Chronic [...] Panel Reviewed date:04/15/2024 07:27:15 AM Interpretation: Performing Lab:[facility], [address] [place] [phone] Notes/Report: Triglycerides 95 <150 mg/dL Desirable Triglyceride: [...] Electrolytes Reviewed date:06/04/2024 05:33:48 AM Interpretation: Performing Lab:[facility], [address] [place] [address] Notes/Report: Sodium 142 135-145 mmol/L Potassium 5.1 3.3-5.1 mmol/L Chloride 107 96-108 mmol/L Carbon Dioxide 29 22-29 mmol/L Anion Gap 11 12-20 Blood Urea Nitrogen Reviewed date:06/04/2024 05:33:48 AM Interpretation: Performing Lab:[facility], [address] [place] [phone] Notes/Report: Blood Urea Nitrogen 80 9-16 mg/dL Creatinine Reviewed date:06/04/2024 05:33:48 AM Interpretation: Performing Lab:[facility], [address] [place] [phone] Notes/Report: Creatinine 3.57 0.5-1.4 mg/dL Estimated Glomerular Filt Rate 13 Chronic Kidney Disease: Estimated GFR < 60 mL/min/1.73m2 Severe Kidney Disease: Estimated GFR < 15 mL/min/1.73m2 Complete Blood Count Auto Di ff Reviewed date:08/25/2024 06:24:46 PM Interpretation: Performing Lab:[facility], [address] [place] [phone] Notes/Report: White Blood Count 4.5 4.8-10.8 X10*3/uL Red Blood Count 2.79 4.20-5.50 X10*6/uL Hemoglobin 8.6 12.0-16.0 g/dl Hematocrit 28.0 37.0-47.0 % Mean Corpuscular Volume 100.4 80.0-98.0 fL Mean Corpuscular Hemoglobin 30.8 27.0-33.0 pg Mean Corpuscular HGB Conc 30.7 31.0-35.0 g/dl Red Cell Distribution Width 13.9 11.0-16.0 % Platelet Count 112 160-400 X10*3/uL Mean Platelet Volume 11.0 9.4-12.3 fL Neutrophils Percent Auto 69.6 45-73 % Imm Gran Pct Auto 0.4 0.0-0.4 % Lymphocytes Percent Auto 17.7 20-40 % Monocytes Percent Auto 9.0 2-11 % Eosinophils Percent Auto 2.9 0-4 % Basophils Percent Auto 0.4 0-2 % NRBC Pct Auto 0.0 0.0-0.2 /100WBC Neutrophils Absolute Auto 3.1 2.0-8.3 x10*3/uL Imm Gran Abs Auto 0.02 0.00-0.03 X10*3/uL Lymphocytes Absolute Auto 0.8 1.2-4.9 X10*3/uL Monocytes Absolute Auto 0.4 0.1-1.2 X10*3/uL Eosinophils Absolute Auto 0.1 0.0-0.4 X10*3/uL Basophils Absolute Auto 0.0 0.0-0.2 X10*3/uL NRBC Abs Auto 0.000 0.0-0.012 X10*3/uL Comprehensive [place]. Panel Fa st Reviewed date:08/25/2024 06:24:46 PM Interpretation: Performing Lab:[address] [address] Notes/Report: Sodium 143 135-145 mmol/L Potassium 5.4 3.3-5.1 mmol/L Chloride 114 96-108 mmol/L Carbon Dioxide 22 22-29 mmol/L Anion Gap 12 12-20 Blood Urea Nitrogen 107 9-16 mg/dL Creatinine 3.94 0.5-1.4 mg/dL Estimated Glomerular Filt Rate 11 Chronic Kidney Disease: Estimated GFR < 60 mL/min/1.73m2 Severe Kidney Disease: Estimated GFR < 15 mL/min/1.73m2 Glucose Fasting 93 60-99 mg/dL Calcium 9.3 8.4-10.2 mg/dL Bilirubin Total 0.2 0.0-1.0 mg/dL Aspartate Amino Transferase 51 5-31 U/L Alanine Aminotransferase 49 0-31 U/L Total Protein 6.9 6.5-8.0 g/dL Albumin Level 4.1 3.5-5.0 g/dL Alkaline Phosphatase 127 39-117 U/L Lipid Panel Reviewed date:08/25/2024 06:24:46 PM Interpretation: Performing Lab:[address] [address] Notes/Report: Triglycerides 125 <150 mg/dL Desirable Triglyceride: less than 150 mg/dL Borderline High Triglyceride 150-199 mg/dL High Triglyceride: 200-499 mg/dL Very High Triglyceride: greater than or equal to 5OO mg/dL Cholesterol 218 <200 mg/dL Desirable Cholesterol: less than 200 mg/dL Borderline High Cholesterol: 200-239 mg/dL High Cholesterol: greater than 239 mg/dL LDL Cholesterol Calculated 117 <100 mg/dL Desirable LDL: less than 100 mg/dL Near Optimal/Above Optimal LDL: 110-129 mg/dL Borderline High LDL: 130-159 mg/dL High LDL: 160-189 mg/dL Very High LDL: greater than or equal to 190 mg/dL HDL Cholesterol 76 >40 mg/dL Desirable HDL: greater than 40 mg/dL Note: This HDL assay may give artificially low results in patients with liver disease. Free T4 (Free Thyroxine) Reviewed date:08/25/2024 06:24:46 PM Interpretation: Performing Lab:[address] [address] Notes/Report: Free T4 (Free Thyroxine) 0.93 0.71-1.85 ng/dL Thyroid Stimulating Hormone Reviewed date:08/25/2024 06:24:47 PM Interpretation: Performing Lab:[address] [address] Notes/Report: Thyroid Stimulating Hormone 4.83 0.32-4.0 uIU/mL Note: A sustained TSH level above 2.5 uIU/mL may warrant further investigation. TSH 3rd Generation ([facility]) Complete Blood Count Auto Di ff (Not yet reviewed by provider) Interpretation: Performing Lab:[facility], [address] [place] [phone] Notes/Report: White Blood Count 4.3 4.8-10.8 X10*3/uL Red Blood Count 2.86 4.20-5.50 X10*6/uL Hemoglobin 9.0 12.0-16.0 g/dl Hematocrit 28.7 37.0-47.0 % Mean Corpuscular Volume 100.3 80.0-98.0 fL Mean Corpuscular Hemoglobin 31.5 27.0-33.0 pg Mean Corpuscular HGB Conc 31.4 31.0-35.0 g/dl Red Cell Distribution Width 13.8 11.0-16.0 % Platelet Count 123 160-400 X10*3/uL Mean Platelet Volume 11.5 9.4-12.3 fL Neutrophils Percent Auto 69.9 45-73 % Imm Gran Pct Auto 0.2 0.0-0.4 % Lymphocytes Percent Auto 16.7 20-40 % Monocytes Percent Auto 9.0 2-11 % Eosinophils Percent Auto 3.7 0-4 % Basophils Percent Auto 0.5 0-2 % NRBC Pct Auto 0.0 0.0-0.2 /100WBC Neutrophils Absolute Auto 3.0 2.0-8.3 x10*3/uL Imm Gran Abs Auto 0.01 0.00-0.03 X10*3/uL Lymphocytes Absolute Auto 0.7 1.2-4.9 X10*3/uL Monocytes Absolute Auto 0.4 0.1-1.2 X10*3/uL Eosinophils Absolute Auto 0.2 0.0-0.4 X10*3/uL Basophils Absolute Auto 0.0 0.0-0.2 X10*3/uL NRBC Abs Auto 0.000 0.0-0.012 X10*3/uL Electrolytes (Not yet review ed by provider) Interpretation: Performing Lab:[address] [address] Notes/Report: Sodium 141 135-145 mmol/L Potassium 5.4 3.3-5.1 mmol/L Chloride 112 96-108 mmol/L Carbon Dioxide 20 22-29 mmol/L Anion Gap 14 12-20 Blood Urea Nitrogen (Not yet reviewed by provider) Interpretation: Performing Lab:[address] [address] Notes/Report: Blood Urea Nitrogen 99 9-16 mg/dL Creatinine (Not yet reviewed by provider) Interpretation: Performing Lab:[address] [address] Notes/Report: Creatinine 3.45 0.5-1.4 mg/dL Estimated Glomerular Filt Rate 13 Chronic Kidney Disease: Estimated GFR < 60 mL/min/1.73m2 Severe Kidney Disease: Estimated GFR < 15 mL/min/1.73m2 Calcium (Not yet reviewed by provider) Interpretation: Performing Lab:[facility], [address] [place] [phone] Notes/Report: Calcium 9.0 8.4-10.2 mg/dL IRON PROFILE (Not yet revie wed by provider) Interpretation: Performing Lab:[facility], [address] [place] [address] Notes/Report: Iron 85 30-160 mcg/dL Total Iron Binding Capacity 344 228-428 mcg/dL Percent Iron Saturation 25 15-50 % Unsaturated Iron Binding 259 Ferritin (Not yet reviewed b y provider) Interpretation: Performing Lab:[facility], [address] [place] [address] Notes/Report: Ferritin 50 10-250 ng/mL Vitamin D 25-OH Total (Not y et reviewed by provider) Interpretation: Performing Lab:[facility], [address] [place] [phone] Notes/Report: Vitamin D 25-OH Total 37.3 >30 ng/mL Health Based Reference Values* < [...] method such as LC-MS/MS. Parathyroid Hormone Intact ( Not yet reviewed by provider) Interpretation: Performing Lab:[facility], [address] [place] [address] Notes/Report: Parathyroid Hormone Intact 289.2 8.7-77.1 pg/mL Reason For Referral Reason left foot pain [...] call our office back with information , DeloresMichelle FRANKY 09/08/2023 10:16:57 AM EDT > Pt [...] DAILY Oral Active Calcium + D Active Atorvastatin Calcium 10 MG TAKE 1 TABLET BY MOUTH EVERY DAY Active amLODIPine Besylate 5 MG TAKE 1 TABLET B Y MOUTH EVERY DAY for 90 Active Pulmicort Flexhaler 180 MCG/ACT 2 puffs Inhalation Twice a day October-March Active ProAir HFA 108 (90 Base) MCG/ACT 2 puffs as needed Inhalation every 4 hrs PRN Active Vitamin E Active Immunizations Vaccine Route Administration Date Status [...] Problem Status W/U Status Risk Notes Problem 607299990 Underweight (R63.6) Active confirmed Her weight has been stable lately with a body mass index of 18. Problem 607448480 Pancytopenia (D61.818) Active confirmed All 3 cell line s have been diminished. This is likely due to her chronic renal failure. The mean cell volume remains slightly elevated. It is being observed carefully. Problem 094186965 Skin cancer (C44.90) Active confirmed he recently had a basal cell carcinoma removed from the right side of her face and her left arm. There was no sign of residual disease today. Problem 831931089 Thrombocytopeni a (D69.6) Active confirmed She has had no bleeding and is avoiding aspirin. Problem Hyperlipidemia (12793373) Hyperlipidemia, unspecified (E78.5) Active confirmed her lipids have been stable. No blood work is available today. A fasting lipid profile has been ordered. No change was made in her regimen. Problem Uncomplicated asthma (disorder) (582454485) Unspecified asthma, uncomplicated (J45.909) Active confirmed She has had no episodes of asthma recently. Problem 448701914 Neutropenia (D70.9) Active confirmed Her white blood cell count is 4000. The neutrophil population is normal and the lymphocyte count is 1000 which is slightly low. Problem 668704709 Mild intermittent asthma without complication (J45.20) Active confirmed She has had no difficulty with asthma lately. She has an inhaler which she has not been using. Problem 08332379 Cataracts, bilateral (H26.9) Active confirmed She will continue to see the put in beat adjuster to resolved these problems. Problem Osteoporosis (37657319) Osteoporosis (M81.0) Active confirmed She has been compliant with his therapy. It was reviewed with her today. Problem 638829309 Osteoarthritis (M19.90) Active confirmed She will continue on current therapy at this time. She will avoid NSAIDs. Problem 945081502 H/O hyperthyroidism (Z86.39) Active confirmed She reports a good appetite. She is consuming adequate calories. She remains underweight. Her thyroid function tests will be checked once again. She has a history of thyroiditis. She is under the care of an digital account director. Problem 79789966 Thyroiditis (E06.9) Active confirmed This is not an active problem. She remains under the care of her digital account director. She is asymptomatic at this time. Problem Hypercholesterole brian (55213598) Hypercholestero lemia (E78.00) Active confirmed Comprehensive blood work with a fasting lipid profile is being done periodically. No change in her medication was made today. Her lipids have been controlled. Problem 570546660 CKD (chronic kidney disease) stage 3, GFR 30-59 ml/min (N18.3) Active confirmed Her renal function continues to decline. She is followed closely by nephrology. Her recent BUN is 107, Creatinine 3.94, GFR 11.. She has been placed on a list for a kidney transplant by her automatic machines supervisor. Problem 395652914 Macular degeneration of both eyes, unspecified type (H35.30) Active confirmed Problem 547603593 Chronic gout without tophus, unspecified cause, unspecified site (M1A.9XX0) Active confirmed She will continue the colchicine 1 tablet daily until the pain has resolved. Problem Chronic kidney disease stage 3 (disorder) (795857989) Chronic kidney disease, stage 3 unspecified (N18.30) Active confirmed Problem Chronic kidney disease stage 3A (disorder) (020937711) Chronic kidney disease, stage 3a (N18.31) Active confirmed Her BUN is 70.The creatinine is 2.96. She is up-to-date with nephrology and continues on therapy without fail. Problem 64238210 Acute idiopathic gout of left foot (M10.072) Active confirmed She was given a course of colchicine. This was adjusted for renal failure to 1 tablet daily Problem 54737683 Acute idiopathic gout involving toe of left foot (M10.072) Active confirmed The gout has no w resolved and she is on allopurinol. Problem 039985707 Peripheral edema (R60.0) Active confirmed She will continue to hold her amlodipine and use the compression hose and leg elevation. Comprehensive blood work was ordered prior to her decision about diuretics. Vital Signs Heart Rate 62 /min 08/23/2024 Temperature 98.0 degrees Fahrenheit 08/23/2024 Blood pressure diastolic 56 mm Hg 08/23/2024 Height 65 in 08/23/2024 Blood pressure systolic 140 mm Hg 08/23/2024 Weight 113 lbs 08/23/2024 BMI 18.8 kg/m2 08/23/2024 Encounters Encounter Location Date Provider Diagnosis Meño Edwards III, MD [address] [place] [address] [place] [id number] 09/06/2023 Meño Edwards Acute idiopathic gou t involving toe of left foot M10.072 ; Underweight R63.6 ; Osteoporosis M81.0 ; Osteoarthritis M19.90 and Chronic kidney disease, stage 3a N18.31 Meño Edwards III, MD [address] [place] [address] [place] [id number] 09/07/2023 Meño Edwards Left foot pain M79.6 72 ; Underweight R63.6 ; Mild intermittent asthma without complication J45.20 and Chronic kidney disease, stage 3a N18.31 Meño Edwards III, MD [address] [place] [address] [place] [id number] 09/13/2023 Meño Edwards Acute idiopathic gou t of left foot M10.072 ; Underweight R63.6 ; Mild intermittent asthma without complication J45.20 and Chronic kidney disease, stage 3a N18.31 Meño Edwards III, MD [address] [place] [address] [place] [id number] 09/15/2023 Meño Edwards Chronic gout without tophus, unspecified cause, unspecified site M1A.9XX0 ; Underweight R63.6 ; Osteoporosis M81.0 ; Mild intermittent asthma without complication J45.20 and Chronic kidney disease, stage 3a N18.31 Meño Edwards III, MD [address] [place] [address] [place] [id number] 10/20/2023 Meño Edwards Hyperlipidemia, unsp ecified E78.5 ; Underweight R63.6 ; Pancytopenia D61.818 ; Mild intermittent asthma without complication J45.20 ; Thyroiditis E06.9 ; Hypercholesterolemia E78.00 ; Osteoporosis M81.0 ; Chronic kidney disease, stage 3a N18.31 and Acute idiopathic gout involving toe of left foot M10.072 Meño dEwards III, MD [address] [place] [address] [place] [id number] 12/15/2023 Meño Edwards Hyperlipidemia, unsp ecified E78.5 ; Underweight R63.6 ; Mild intermittent asthma without complication J45.20 ; CKD (chronic kidney disease) stage 3, GFR 30-59 ml/min N18.3 ; Pancytopenia D61.818 ; Unspecified asthma, uncomplicated J45.909 and Skin cancer C44.90 Meño Edwards III, MD [address] [place] [address] [place] [id number] 01/23/2024 Meño Edwards Hyperlipidemia, unsp ecified E78.5 ; Pruritic rash L28.2 ; Underweight R63.6 ; Mild intermittent asthma without complication J45.20 ; Pancytopenia D61.818 ; Thyroiditis E06.9 and Hypercholesterolemia E78.00 Meño Edwards III, MD [address] [place] [address] [place] [id number] 01/31/2024 Meño Edwards Hyperlipidemia, unsp ecified E78.5 ; Underweight R63.6 ; Pancytopenia D61.818 ; Mild intermittent asthma without complication J45.20 ; Acute idiopathic gout involving toe of left foot M10.072 ; Chronic kidney disease, stage 3a N18.31 ; Osteoporosis M81.0 ; Hypercholesterolemia E78.00 and Peripheral edema R60.0 Meño Edwards III, MD [address] [place] [address] [place] [id number] 02/03/2024 Meño Ewdards Hyperlipidemia, unsp ecified E78.5 ; Underweight R63.6 ; Mild intermittent asthma without complication J45.20 ; Chronic kidney disease, stage 3a N18.31 and Peripheral edema R60.0 Meño Edwards III, MD [address] [place] [address] [place] [id number] 02/10/2024 Meño Edwards Hyperlipidemia, unsp ecified E78.5 ; Pedal edema R60.0 ; Mild intermittent asthma without complication J45.20 ; Underweight R63.6 ; Acute idiopathic gout involving toe of left foot M10.072 ; Osteoporosis M81.0 and Chronic kidney disease, stage 3a N18.31 Meño Edwards III, MD [address] [place] [address] [place] [id number] 04/19/2024 Meño Edwards Hyperlipidemia, unsp ecified E78.5 ; CKD (chronic kidney disease) stage 3, GFR 30-59 ml/min N18.3 ; Pancytopenia D61.818 ; H/O hyperthyroidism Z86.39 ; Hypercholesterolemia E78.00 ; Neutropenia D70.9 ; Underweight R63.6 ; Mild intermittent asthma without complication J45.20 and Acute idiopathic gout involving toe of left foot M10.072 Meño Edwards III, MD [address] [place] [address] [place] [id number] 08/23/2024 Meño Edwards Underweight R63.6 ; CKD (chronic kidney disease) stage 3, GFR 30-59 ml/min N18.3 ; Mild intermittent asthma without complication J45.20 ; Thrombocytopenia D69.6 ; Thyroiditis E06.9 and Osteoporosis M81.0 Meño Edwards III, MD [address] [place] [address] [place] [id number] 09/09/2023 Meño Edwards III, MD [address] [place] [address] [place] [id number] 09/19/2023 Meño Edwards III, MD [address] [place] [address] [place] [id number] 12/22/2023 Meño Edwards III, MD [address] [place] [address] [place] [id number] 06/14/2024 Meño Edwards III, MD [address] [place] [address] [place] [id number] 08/31/2024 Meño Edwards Assessments Encounter Date Diagnosis (ICD Code) Assessment Notes T reatment Notes Treatment Clinical Notes 09/06/2023 Underweight (ICD-10 - R63.6) Her weight [...] a week now. She will see a oven tender bagels. 09/13/2023 Underweight (ICD-10 - R63.6) Her weight [...] and to be compliant with her medications. 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 09/06/2023 Osteoporosis (ICD-10 - M81.0) She has [...] slightly elevated. It is being observed carefully. 08/23/2024 Mild intermittent as thma without complication (ICD-10 - J45.20) She has had no difficulty with asthma lately. She has an inhaler which she has not been using. 09/06/2023 Osteoarthritis (ICD- 10 - M19.90) She [...] She is under the care of an digital account director. 08/23/2024 Thrombocytopenia (IC D-10 - D69.6) She has had no bleeding and is avoiding aspirin. 09/06/2023 Chronic kidney disea se, stage 3a [...] She remains under the care of her digital account director. She is asymptomatic at this time. 12/15/2023 [...] made today. Her lipids have been controlled. 08/23/2024 Thyroiditis (ICD-10 - E06.9) This is not an active problem. She remains under the care of her digital account director. She is asymptomatic at this time. 10/20/2023 Hypercholesterolemia (ICD-10 - E78.00) Her lipids will be followed carefully. They're barely out of range. 12/15/2023 Unspecified asthma, uncomplicated (ICD-10 - J45.909) She has had no episodes of asthma recently. 01/23/2024 Thyroiditis (ICD-10 - E06.9) This is not an active problem. She remains under the care of her digital account director. She is asymptomatic at this time. 01/31/2024 [...] count is 1000 which is slightly low. 08/23/2024 Osteoporosis (ICD-10 - M81.0) She has been compliant with his therapy. It was reviewed with her today. 10/20/2023 Osteoporosis (ICD-10 - M81.0) She has [...] Order Date PROFILE, FASTING (COMPREHENSIVE METABOLI C) 04/13/2021 PROFILE, FASTING (COMPREHENSIVE METABOLI C) 11/11/2021 PROFILE, FASTING (COMPREHENSIVE METABOLI C) 01/14/2023 PROFILE, FASTING (COMPREHENSIVE METABOLI C) 08/23/2024 PROFILE, FASTING (COMPREHENSIVE METABOLI C) 01/12/2021 PROFILE, FASTING (COMPREHENSIVE METABOLI C) 04/19/2024 PROFILE, FASTING (COMPREHENSIVE METABOLI C) 10/20/2023 PROFILE, FASTING (COMPREHENSIVE METABOLI C) 08/14/2021 PROFILE, FASTING (COMPREHENSIVE METABOLI C) 10/07/2022 PROFILE, FASTING (COMPREHENSIVE METABOLI C) 10/20/2020 PROFILE, FASTING (COMPREHENSIVE METABOLI C) 04/07/2023 PROFILE, FASTING (COMPREHENSIVE METABOLI C) 12/13/2017 PROFILE, FASTING (COMPREHENSIVE METABOLI C) 04/01/2022 PROFILE, RANDOM (COMPREHENSIVE METABOLIC ) 01/31/2024 LIPID PANEL 12/13/2017 LIPID PANEL 04/01/2022 LIPID PANEL 11/11/2021 LIPID PANEL 01/14/2023 LIPID PANEL 01/12/2021 LIPID PANEL 10/07/2022 LIPID PANEL 10/20/2020 GGT 10/20/2020 FREE T4 (FT4) 10/11/2017 TSH (THYROID STIMULATING HORMONE) 2023 TSH (THYROID STIMULATING HORMONE) 2017 CBC w DIFF 10/07/2022 CBC w DIFF 04/13/2021 CBC w DIFF 12/13/2017 CBC w DIFF 04/01/2022 CBC w DIFF 10/20/2020 CBC w DIFF 11/11/2021 CBC w DIFF 01/14/2023 CBC w DIFF 08/14/2021 CBC w DIFF 01/12/2021 CBC w DIFF 04/19/2024 CBC w DIFF 04/07/2023 SED RATE (ESR) 11/11/2021 BONE DENSITY DEXA 05/19/2020 BONE DENSITY DEXA 06/05/2020 BONE DENSITY DEXA 12/07/2021 US CAROTID BILATERAL DOPPLER 07/19/2018 VITAMIN D 25-OH TOTAL 04/01/2022 CBC WITH AUTO DIFF 01/31/2024 CBC WITH AUTO DIFF 08/23/2024 CBC WITH AUTO DIFF 10/20/2023 Complete Blood Count Auto Diff Electrolytes 08/28/2024 Blood Urea Nitrogen 08/28/2024 Creatinine 08/28/2024 Calcium 08/28/2024 IRON PROFILE 08/28/2024 Ferritin 08/28/2024 Lipid Panel 04/19/2024 Lipid Panel 04/07/2023 Lipid Panel 04/13/2021 Lipid Panel 08/23/2024 Lipid Panel 10/20/2023 Lipid Panel 08/14/2021 Vitamin D 25-OH Total 08/28/2024 Vitamin D 25-OH Total 04/07/2023 Free T4 (Free Thyroxine) 04/19/2024 Parathyroid Hormone Intact 08/28/2024 Next Appt Details Provider Name:Meño Edwards, 11/21/2024 09:30:00 AM, [address] [place] [address] [place], [phone], Provider Name:Meño Edwards, 04/22/2025 09:30:00 AM, [address] [place] [address] [place], [address], Insurance Providers Payer Name Payer Address Payer Phone Subscriber Number Group Number Insured Name Patient Relationship to Insured Coverage Start Date Coverage End Date MEDICARE NGS [address] [place] [phone] [phone] [id number] Jacy Goldberg Self - patient is the insured [facility] [address] [place], [place] [id number] [phone] [id number] Apurvahelga Jacy Self - patient is the insured Medical (General) History Medical History History ICD Code degenerative arthritis of the cervical s pine spine asthma osteoarthritis hemorhoids thrombocytopenia cataracts last bilateral mammogram 12/18/2012 @ [facility] R&I anemia hyperthyroid abnormal renal function Surgical History Surgery Date(Month/Year) wisdom teeth extraction tonsillectomy septum repair [id number] right cataract surgery 2011 colonoscopy, adenomatous polyp 2004 colonoscopy, wnl 2008 biopsy on left index finger 09/2018 Basal Cell removed, Left arm 01/10/2023 No history Hospitalization History Reason Date(Month/Year) No history
== END 2024-08-31 12:15 | disposition home or self-care (01) ==
LOC: HO.10HDL 12:14
PROVIDERS: Visit Provider Internal Medicine Nephrology
DX: Z13.89 Encounter for screening for other disorder (principal)
CPT/HCPCS: 36415; 80051; 82565; 84100; 84520; 85025

== ENCOUNTER 2024-09-24 08:07 | Outpatient (REF) | payer MEDICARE, SELFPAY ==
[2024-09-24 12:05] LABS: Parathyroid Hormone Intact 321.1 pg/mL (8.7-77.1)
== END 2024-09-24 08:08 | disposition home or self-care (01) ==
LOC: HO.10HDL 08:07
PROVIDERS: Visit Provider Internal Medicine Nephrology
DX: Z13.89 Encounter for screening for other disorder (principal)
CPT/HCPCS: 36415; 83970

== ENCOUNTER 2024-09-24 08:16 | Outpatient (REF) | payer MEDICARE, SELFPAY ==
--- NOTE | ~2024-09-24 | MM_ITS ---
EXAMINATION: MM SCREENING DIGITAL BREAST TOMOSYNTHESIS, BILATERAL CLINICAL INFORMATION: Screening. Asymptomatic. COMPARISON: Mammography: Comparison is made with available priors TECHNIQUE: Digital breast mammography with tomosynthesis is performed in both the craniocaudal and mediolateral oblique views along with computer-aided detection (CAD). FINDINGS: The breasts are heterogeneously dense, which may obscure small masses (ACR BI-RADS breast composition Category c). Right marker clip. There are no significant masses, abnormal calcifications, or other abnormalities. MM/MM tomosynthesis screening BI IMPRESSION: No mammographic evidence of malignancy. ASSESSMENT: BI-RADS BI-RADS 2 - Benign Findings RECOMMENDATION: Routine annual mammography screening. 1 year F/U This examination should not preclude the clinical evaluation of a suspicious palpable abnormality. This patient's information was entered into a reminder system with a target due date for their next mammogram. Electronically signed by: Trisha Triana DO 09/29/2024 05:33 PM EDT
== END 2024-09-24 08:17 | disposition home or self-care (01) ==
LOC: HO.MAMMO 08:16
PROVIDERS: PCP Internal Medicine Medical Oncology; Visit Provider Internal Medicine Medical Oncology
DX: Z12.31 Encounter for screening mammogram for malignant neoplasm of breast (principal)
CPT/HCPCS: 36415; 77063; 77067; 83970

== ENCOUNTER → 2024-09-24 08:45 | Outpatient (BNV) | payer MEDICARE, SELFPAY | PROVIDERS: PCP Internal Medicine Medical Oncology; Visit Provider Internal Medicine | DX: Z12.31 Encounter for screening mammogram for malignant neoplasm of breast (principal) | CPT/HCPCS: 77063; 77067 ==

== ENCOUNTER 2024-10-03 11:09 | Outpatient (AMB) | payer MEDICARE, SELFPAY ==
--- NOTE | 2024-10-03 11:28 | HO.NEPHOV_ITS ---
Vital Signs 10/03/24 11:29 Height 5 ft 4 in Weight 115 lb BMI 19.7 BP 130/70 Blood Pressure Location Lt brachial Position Sitting Pulse 55 Pulse Source Pulse Oximeter Pulse Oximetry (%) 98 Oxygen Delivery Method Room Air Intake Visit Reasons: 1mon follow-up w/labs-LVM University Tutor Required: No Accompanied by: Self / Same As Patient Allergies No Known Allergies Allergy (Verified 10/03/24 11:29) HPI Comments Details: Jacy was seen in follow-up of her hypertension and advanced chronic kidney disease. She has not had any flare up of gout on her left foot. She is tolerating Allopurinol . She denies any uremic symptoms. She has not taken any nonsteroidal anti-inflammatories. Her blood pressure control is optimal. Her Amlodipine has been cut back due to edema. She maintains good hydration. She denies chest pain, shortness of breath, paroxysmal nocturnal dyspnea, orthopnea or urinary symptoms. Her last 24 hour urine collection showed a GFR close to 18 mls/minute. He has hyperkalemia and is getting treatment for it. She has stress test and ECHO booked as part of transplant W/U. [place] [facility] [place] [facility] Medical History (Updated 06/02/24 @ 15:41 by Marquise Ashford MD) Degenerative arthritis of cervical spine Osteoarthritis Hypothyroidism Anemia Thrombocytopenia Chronic kidney disease DDD (degenerative disc disease) Rotator cuff arthropathy of right shoulder Neck pain Low back pain Single kidney Environmental allergies Asthma Surgical History Hx of nasal septoplasty History of tonsillectomy and adenoidectomy Hx of colonoscopy Hx of bilateral cataract extraction Social History Alcohol intake: current Alcohol intake frequency: holidays/special occasions only Review of Systems Const All systems reviewed & are unremarkable except as noted in HPI and below Physical Exam Vital Signs: Last Vital Signs Pulse 55 10/03/24 11:29 BP 164/54 H 10/03/24 11:29 Pulse Ox 98 10/03/24 11:29 Oxygen Delivery Method Room Air 10/03/24 11:29 BMI result Body Mass Index 19.7 Const General: comfortable and no acute distress Orientation/consciousness: patient oriented x3 HEENT Head: Yes normocephalic Mouth: Normal oral and palatal mucosa present Eyes EOM: EOMs intact bilaterally Neck Neck: Yes supple Resp Auscultation: clear to auscultation bilaterally Cardio Jugular venous distension: no JVD Rate: regular rate GI Palpation (GI): Soft to palpation Auscultation: normal bowel sounds General: Yes no CVA tenderness Back/Spine/Pelvis Back: no CVA tenderness Skin General skin exam: no rashes or lesions noted Neuro General: patient oriented x3 and moves all extremities Extrem General: Yes no pedal edema Office Meds epoetin darryl-epbx 10,000 unit/mL injection solution Performing Provider: Marquise Ashford MD Performing Location: [facility] [place] [facility] Administered by: Marquise Ashford MD on 10/03/24 11:42 Dose Route Admin Location Dispensed Lot Number Expiration Date [facility] Passenger Service Manager 20,000 unit subcut LUE 2 mL [id number] 10/25/25 7528-8076-29 [employer] Results Reviewed Nephrology Results: Hgb 9.1 g/dl (12.0-16.0) L 08/31/24 WBC 4.6 X10*3/uL (4.8-10.8) L 08/31/24 Plt Count 123 X10*3/uL (160-400) L 08/31/24 Sodium 141 mmol/L (135-145) 08/31/24 Potassium 5.9 mmol/L (3.3-5.1) H 08/31/24 Chloride 112 mmol/L (96-108) H 08/31/24 Carbon Dioxide 22 mmol/L (22-29) 08/31/24 BUN 98 mg/dL (9-16) H 08/31/24 Creatinine 3.45 mg/dL (0.5-1.4) H 08/31/24 Calcium 9.0 mg/dL (8.4-10.2) 08/28/24 Phosphorus 4.6 mg/dL (2.7-4.5) H 08/31/24 PTH Intact 321.1 pg/mL (8.7-77.1) H 09/24/24 Assessment & Plan Assessment & Plan (1) Anemia in chronic kidney disease: Code(s): N18.9 - Chronic kidney disease, unspecified; D63.1 - Anemia in chronic kidney disease Category: Medical Qualifiers: Chronic kidney disease stage: stage 4 (GFR 15-29) Qualified Code(s): N18.4 - Chronic kidney disease, stage 4 (severe); D63.1 - Anemia in chronic kidney disease (2) Secondary hyperparathyroidism (of renal origin): Code(s): N25.81 - Secondary hyperparathyroidism of renal origin Category: Medical (3) Hypertension: Code(s): I10 - Essential (primary) hypertension Category: Medical Qualifiers: Hypertension type: secondary to other renal disorders Qualified Code(s): I15.1 - Hypertension secondary to other renal disorders (4) CKD (chronic kidney disease) stage 4, GFR 15-29 ml/min: Code(s): N18.4 - Chronic kidney disease, stage 4 (severe) Category: Medical (5) Gout: Code(s): M10.9 - Gout, unspecified Category: Medical Qualifiers: Chronicity: acute Gout etiology: due to renal impairment Gout site: foot Laterality: left Qualified Code(s): M10.372 - Gout due to renal impairment, left ankle and foot Tiffany Louie has left atrophic kidney. She has progressive renal dysfunction or many years. Her serum creatinine had been fairly stable. Her last cr cl was close to 18 mls/mt. She does not have any uremic symptoms. Her blood pressure is at goal at home . She can continue current dose of amlodipine & allopurinol daily. She maintains good hydration. She avoids nonsteroidal anti-inflammatories. I discussed with her regarding options of renal replacement therapy. She was referred for transplantation( referred to [facility] T[facility]- W/U in progresss). I have given her [id number] U of Procrit in the office today. All her questions during this visit were answered. Follow-up appointment given Orders: Orders AMB Epoetin Injection Practice Supplied Today D63.1 - Anemia in chronic kidney disease, N18.4 - Chronic kidney disease, stage 4 (severe) Electrolytes Today D63.1 - Anemia in chronic kidney disease, I15.1 - Hypertension secondary to other renal disorders, M10.372 - Gout due to renal impairment, left ankle and foot, N18.4 - Chronic kidney disease, stage 4 (severe), N25.81 - Secondary hyperparathyroidism of renal origin Complete Blood Count Auto Diff Today D63.1 - Anemia in chronic kidney disease, I15.1 - Hypertension secondary to other renal disorders, M10.372 - Gout due to renal impairment, left ankle and foot, N18.4 - Chronic kidney disease, stage 4 (severe), N25.81 - Secondary hyperparathyroidism of renal origin Creatinine Today D63.1 - Anemia in chronic kidney disease, I15.1 - Hypertension secondary to other renal disorders, M10.372 - Gout due to renal impairment, left ankle and foot, N18.4 - Chronic kidney disease, stage 4 (severe), N25.81 - Secondary hyperparathyroidism of renal origin Blood Urea Nitrogen Today D63.1 - Anemia in chronic kidney disease, I15.1 - Hypertension secondary to other renal disorders, M10.372 - Gout due to renal impairment, left ankle and foot, N18.4 - Chronic kidney disease, stage 4 (severe), N25.81 - Secondary hyperparathyroidism of renal origin Calcium Today D63.1 - Anemia in chronic kidney disease, I15.1 - Hypertension secondary to other renal disorders, M10.372 - Gout due to renal impairment, left ankle and foot, N18.4 - Chronic kidney disease, stage 4 (severe), N25.81 - Secondary hyperparathyroidism of renal origin Medications: Changed From sodium polystyrene sulfonate 30 grams PO .twice a week 453.6 grams 3RF To sodium polystyrene sulfonate 30 grams orally once a week 453.6 grams 3RF Coding Level of Care Code Est Pt Level 4 (43910) Diagnoses Anemia in stage 4 chronic kidney disease N18.4; D63.1 Chronic kidney disease stage: stage 4 (GFR 15-29) Secondary hyperparathyroidism (of renal origin) N25.81 Hypertension secondary to other renal disorders I15.1 Hypertension type: secondary to other renal disorders CKD (chronic kidney disease) stage 4, GFR 15-29 ml/min N18.4 Acute gout due to renal impairment involving left foot M10.372 Chronicity: acute Gout etiology: due to renal impairment Gout site: foot Laterality: left
[2024-10-03 11:29] VITALS: BP 130/70; PULSE 55; O2SAT 98; BMI 19.7
--- OUTSIDE RECORDS SUMMARY | 2024-10-03 13:12 | XMS_ITS | Data Portability ---
Author Organization [facility] Esthela ROYAL_Sarah_ Address [address] [place] [address] Care Team Providers Care Transfer Table Operator Helper Name Role Phone KAR COVARRUBIAS Primary Care Provider Assessment No assessment recorded. Plan of Treatment Reminders Order Date Submit Date Provider Last Modified By Organization Details Last Modified Time Details Appointments None recorded. Lab rapid SARS CoV 2 Ag, QL IA, respiratory specimen 2023 024 In-Office Order, Internal Use Only DO Not Attach Compendium DO Not Attach Compendium, Do Not Delete/merge, [id number] 08:11:31 rapid flu (A+B) 2023 024 In-Office Order, Internal Use Only DO Not Attach Compendium DO Not Attach Compendium, Do Not Delete/merge, [id number] 4 08:11:32 SARS coronavirus RNA, qual, PCR, unspecified specimen 2020 021 [email or web address] In-Office Order, Internal Use Only DO Not Attach Compendium DO Not Attach Compendium, Do Not Delete/merge, [id number] 08:40:48 rapid SARS CoV 2 Ag, QL IA, respiratory specimen 2019 020 [email or web address] 5 In-Office Order, Internal Use Only DO Not Attach Compendium DO Not Attach Compendium, Do Not Delete/merge, [id number] 0 11:45:25 rapid SARS CoV 2 Ag, QL IA, respiratory specimen 2019 020 In-Office Order, Internal Use Only DO Not Attach Compendium DO Not Attach Compendium, Do Not Delete/merge, [id number] 0 15:44:46 Referral None recorded. Procedures cerumen removal (PROC) 2023 BISMARK In-Office Order, Internal Use Only DO Not Attach Compendium DO Not Attach Compendium, Do Not Delete/merge, [id number] 07:23:24 pulse oximetry (PROC) 2020 021 [email or web address] 5 In-Office Order, Internal Use Only DO Not Attach Compendium DO Not Attach Compendium, Do Not Delete/merge, [id number] 1 08:40:48 pulse oximetry (PROC) 2019 020 [email or web address] 5 In-Office Order, Internal Use Only DO Not Attach Compendium DO Not Attach Compendium, Do Not Delete/merge, [id number] 0 11:45:25 pulse oximetry (PROC) 2019 020 In-Office Order, Internal Use Only DO Not Attach Compendium DO Not Attach Compendium, Do Not Delete/merge, [id number] 0 16:31:34 Surgeries None recorded. Imaging None [...] By Organization Details Last Modified Time 09/22/2020 [id number] learning about healthy weight [email or web address] Not available 09/22/2020 08:40:48 body mass index: care instructions [email or web address] Not available 09/22/2020 08:40:48 eating healthy foods: care instructions [email or web address] Not available 09/22/2020 08:40:48 9 things to do i f you've been exposed to covid-19 [email or web address] Not available 09/22/2020 08:40:48 12/23/2023 [id number] Acute Sinusitis: Care Instructions Not available 12/23/2023 [...] DO Not Attach Compendium, Do Not Delete/merge, [id number] 09/22/2020 08:20:07 05/27/20 20 05/27/2020 pulse oxime try (PROC ) pulse oximetry 99% room air Not Available In-Office Order Internal Use Only DO Not Attach Compendium DO Not Attach Compendium, Do Not Delete/merge, [id number] 05/27/2020 15:12:33 05/27/20 20 05/27/2020 rapid SARS CoV 2 Ag, QL IA, respi rator y speci men RAPID Nasal Covid negati ve Not Available In-Office Order Internal Use Only DO Not Attach Compendium DO Not Attach Compendium, Do Not Delete/merge, [id number] 05/27/2020 15:12:31 06/13/20 20 06/13/2020 rapid SARS CoV 2 Ag, QL IA, respi rator y speci men RAPID Nasal Covid negati ve Not Available In-Office Order Internal Use Only DO Not Attach Compendium DO Not Attach Compendium, Do Not Delete/merge, [id number] 06/13/2020 10:52:21 06/13/20 20 06/13/2020 pulse oxime try (PROC ) pulse oximetry 98% room air Not Available In-Office Order Internal Use Only DO Not Attach Compendium DO Not Attach Compendium, Do Not Delete/merge, [id number] 06/13/2020 10:52:23 09/23/19 21 09/22/2020 SARS coron aviru s RNA, qual, PCR, unspe cifie d speci men RAPID Bowles PCR COVID/Nasal negati ve Not Available In-Office Order Internal Use Only DO Not Attach Compendium DO Not Attach Compendium, Do Not Delete/merge, [id number] 09/22/2020 08:20:30 12/23/19 24 12/23/2023 rapid flu (A+B) Flu A negati ve Not Available In-Office Order Internal Use Only DO Not Attach Compendium DO Not Attach Compendium, Do Not Delete/merge, [id number] 12/23/2023 07:26:42 12/23/19 24 12/23/2023 rapid flu (A+B) Flu B negati ve Not Available In-Office Order Internal Use Only DO Not Attach Compendium DO Not Attach Compendium, Do Not Delete/merge, [id number] 12/23/2023 07:26:42 12/23/19 24 12/23/2023 rapid SARS CoV 2 Ag, QL IA, respi rator y speci men RAPID Nasal Covid negati ve Not Available In-Office Order Internal Use Only DO Not Attach Compendium DO Not Attach Compendium, Do Not Delete/merge, [id number] 12/23/2023 07:26:23 Result Notes None recorded. Problems [...] Updated DateTime 0 162.56 cm 15.8 kg/m2 49810.5 g 62 /min 97.2 [degF] 99 % 99 % 152 mm[Hg] 49 mm[Hg] Lorrie Lara [place] - [facility] 0 16:30:34 Date Recorded Body height Body mass index (BMI) Body weight Heart rate Body temperature Oxygen saturation Oxygen saturation in Arterial blood by Pulse oximetry Provider Name and Address Organization Details Last Updated DateTime 0 162.56 cm 16 kg/m2 17093.0 9 g 64 /min 97.9 [degF] 98 % 98 % Nani HutchisonYunior [facility] 0 10:51:05 Date Recorded Body height Body mass index (BMI) Body weight Heart rate Oxygen saturation Oxygen saturation in Arterial blood by Pulse oximetry Body temperature Provider Name and Address Organization Details Last Updated DateTime 1 162.56 cm 17.2 kg/m2 17741.2 4 g 71 /min 99 % 99 % 97.9 [degF] Nani NolbertotommieMil [facility] 1 08:18:56 Date Recorded Body height Body mass index (BMI) Body weight Heart rate Body temperature Oxygen saturation Oxygen saturation in Arterial blood by Pulse oximetry Systolic blood pressure Diastolic blood pressure Provider Name and Address Organization Details Last Updated DateTime 4 162.56 cm 17.7 kg/m2 86982.7 3 g 85 /min 97.5 [degF] 99 % 99 % 117 mm[Hg] 76 mm[Hg] Gregorio Stuart [place] - [facility] 4 07:23:08 Social History Question Answer Notes LastModified by Organizat ion Details LastModified Time Tobacco Smoking Status Never Smoker Gregorio Stuart [place], [place] - [facility] 12/23/2023 07:23:42 Do You Have [...] If Patient Spent Time In [facility] - Does The Patient Live In [facility]? No Information not available 05/27/2020 In The 14 Days Before Symptom Onset, Have You Had Close Contact With A Person Who Is Under Investigation For COVID-19 While That Person Was Ill? No Information not available 05/27/2020 In The 14 Days Before Symptom Onset, Did The Patient Spend Time In [facility]? No Information not available 05/27/2020 Have [...] influenza, unspecified formulation 03/26/2020 completed KEN Garcia [facility] 12/23/2023 07:23:50 Past Encounters Encounter ID Performer Location Encounter Start Date Encounter Closed Date Diagnosis/Indication Diagnosis SNOMED-CT Code Diagnosis ICD10 Code Diagnosis Note [id number] Omaira Valenzuela PA-C [address] [address] 05/27/2020 13:31:56 06/06/2020 14:49:42 Exposure to SARS-CoV-2 200756602 Z20.828 NEG RAPID [id number] Omaira Valenzuela PA-C [address] [address] 06/13/2020 10:15:38 06/13/2020 18:06:15 Suspected COVID-19 578889043 Z03.818 neg rapid covid [id number] Omaira Valenzuela PA-C [address] [address] 09/22/2020 08:09:28 09/22/2020 10:47:30 Exposure to SARS-CoV-2 792208603 Z20.828 You were swabbed for Covid-19 today [...] the facility can prepare for your arrival [id number] Apryl Rea PA-C [facility] [place] [address] [facility] [address] [place] [address] 12/23/2023 06:58:27 12/23/2023 13:22:50 Acute bacterial sinusitis 72292857 J01.90 - Rapid flu and COVIDWill initiate empiric antibiotic therapy as detailed below as this has been ongoing over a week now. Supportive and symptomati c management discussed. Impacted c erumen of bilateral ears 6895920212 177124 H61.23 She did undergo successful bilateral lavage, [...] Name 05/27/2020 1 [place] Jacy Mixonhelga [id number] Jacy Mixonhelga 05/27/2020 [address] [facility] [id number] Jacy Mixonhelga [id number] Jacy Mixonhelga 06/13/2020 1 [place] Jacy Mixonhelga [id number] aJcy Mixonhelga 06/13/2020 [address] [facility] [id number] Jacy Mixonhelga [id number] Jacy Mc Yusuf 09/22/2020 1 [place] Jacy Goldberg [id number] Jacy Goldberg 09/22/2020 2 [facility] [id number] Jacy Goldberg [id number] Jacy Goldberg 12/23/2023 1 [place] Jacy Goldberg [id number] Jacy Goldberg 12/23/2023 2 [facility] [id number] Jacy Goldberg [id number] Jacy Goldberg Notes Date Note Type Note Provider Name and Address Organization Details Recorded Time 05/27/2020 text/html Needs covid test to move father into group home Omaira Valenzuela PA-C [address] [place], [address], [facility] [place] [facility] [...] for COVID testing. Patient is asymptomatic. [facility] [place], [address], [facility] [place] [facility] 06/13/2020 11:45:32 09/22/2020 text/html Patient presents today for COVID testing. Patient is asymptomatic. [facility] [place], [address], [facility] [place] [facility] 09/22/2020 08:40:54 12/23/2023 text/html 68yo female presents with headache, sinus pressure/congestion , dizziness, and fatigue x1 week. Apryl Rea PA-C [address] [place], [address], [facility] [place] [facility] 12/23/2023 08:21:05 OBGyn Episode No OBEpisode recorded.
--- OUTSIDE RECORDS SUMMARY | 2024-10-03 13:12 | XMS_ITS ---
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 Problem Gouty arthropathy (560251374) Lead-induced gout, 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 Vital Signs Height 5 ft 4 in in 09/09/2023 Weight 103 lbs 09/09/2023 BMI 17.68 kg/m2 09/09/2023 Encounters Encounter Location Date Provider Diagnosis [facility] [address] [address] 09/09/2023 London Daquan Pain in left foot [...] Jacy DOMINIQUE SDOB: [birth year] (68 yo F)Acc No.[id number]:09/09/2023 Progress Note Patient:?Jacy Dominique Provider:?London Butt DPM :1955???Age:68 Y???Sex:Female D ate:09/09/2023 Address: [address] [facility], [facility] Pcp:Meño Edwards MD Subjective: * Chief Complaints: [...] DPM Date:? 024 Generated for Timothy kennedy/Ngoc/Angelaitting on:?10/03/2024 01:12 PM EDT History and Physical Notes * [...]
--- OUTSIDE RECORDS SUMMARY | 2024-10-03 13:12 | XMS_ITS | Patient Health Record ---
Author Organization [facility] Address [address] [place] [address] Care Team Providers Care Tetryl Blender Operator Name Role Phone Meño Edwards MD [...] Problem Status W/U Status Risk Notes Problem 186765832 Colon cancer screening (V76.51) Active confirmed Problem 270842128 Colon cancer screening (Z12.11) Active confirmed Problem 283836970 Personal history of colonic polyps (Z86.010) Active confirmed Problem 660543453 Long-term curren t use of high risk medication other than anticoagulant (Z79.899) Active confirmed Plan Of Treatment Future Test Test Name Order Date COLONOSCOPY 04/01/2014 COLONOSCOPY 07/28/2020 Insurance Providers Payer Name Payer Address Payer Phone Subscriber Number Group Number Insured Name Patient Relationship to Insured Coverage Start Date Coverage End Date MEDICARE OF [place] [address] [place] [address] [phone] [id number] MENA DOMINIQUE Self - patient is the insured [employer] ATT[employer] CLAIMS [address] [place] [address] [id number] MENA DOMINIQUE Self - patient is the [...]
--- OUTSIDE RECORDS SUMMARY | 2024-10-03 13:12 | XMS_ITS | Continuity of Care Document ---
Author Organization [facility] Address [address] [facility] [address] [address] Phone [phone] Social History Type Date Description Comments Sex Unknown Medical Devices Description No Information Available Encounters Description No Information Available Assessments Description No Information Available Plan of Treatment No Information Available Functional Status Description No Information Available Mental Status Description No Information Available Referrals Description No Information Available
--- OUTSIDE RECORDS SUMMARY | 2024-10-03 13:12 | XMS_ITS ---
Author Organization [facility] Address [address] [facility] [place] [address] Care Team Providers Care Sales Promotion Coordinator Name Role Phone Meño Edwards MD Primary Care Provider Unavailab London Braswell Unavailable [phone] Vin Quevedo Unavailable [phone] REASON FOR VISIT Swollen ft/ pain Encounters Encounter Location Date [facility] [address] [address] 09/08/2023 Vin Quevedo Plan Of Treatment No Information Progress Notes * Jacy DOMINIQUE SDOB: [birth year] (68 yo F)Acc No.[id number]:09/08/2023 Patient:?Jacy Dominique :1955???Age:68 Y???Sex:Female Address:[address] [place], [address] * true * Date:? Generated for Printi brent/Ngoc/eTransmitting on:?10/03/2024 01:12 PM EDT
--- OUTSIDE RECORDS SUMMARY | 2024-10-03 13:12 | XMS_ITS | Patient Health Record ---
Author Organization 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, accidental (unintentional) , initial encounter (T56.0X1A) Active confirmed Problem 668261767 Lead-induced gout, 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 Plan Of Treatment Pending Test Test Name Order Date *Uric Acid, Serum 09/09/2023 *Sedimentation Rate-Westergren 4 X ray : Foot, left 3V 01/27/2022 Insurance Providers Payer Name Payer Address Payer Phone Subscriber Number Group Number Insured Name Patient Relationship to Insured Coverage Start Date Coverage End Date Medicare National Govt Svcs Inc [address] [place] [address] [id number] Jacy Goldberg Self - patient is the insured [employer] Blue [employer] [address] [place] [address] [id number] Jacy Goldberg Self - patient is the insured Medical (General) History Medical History History ICD Code asthma Back pain CAD (Cholesterol) Cataracts Measles Mumps Kidney disease chronic sinusitis Warts Surgical History Surgery Date(Month/Year) tonsillectomy and adenoidectomy wisdom teeth extraction 1971 cataract surgery 10/28/2015 deviated septum repair 1976
--- OUTSIDE RECORDS SUMMARY | 2024-10-03 13:12 | XMS_ITS | Clinical Summary ---
Author Organization [facility] Address [address] [place] [address] Care Team Providers Care Front Desk Clerk Name Role Phone Unavailable Primary Care Provider [...]
--- OUTSIDE RECORDS SUMMARY | 2024-10-03 13:12 | XMS_ITS ---
Author Organization Meño Edwards III, MD Address [address] [place] [address] Care Team Providers Care Transmission Inspector Name Role Phone Meño Edwards Primary Care Provider [phone] REASON FOR VISIT Message Social History Sex Assigned At : Social History Observation Description Sex Assigned At Female Encounters Encounter Location Date Provider Diagnosis Meño Edwards III, MD [address] [place] [address] [place] [address] 06/14/2024 Meño Edwards Plan Of Treatment Next Appt Details Provider Name:Meño Edwards, 11/21/2024 09:30:00 AM, [address] [place] [address] [place], [address], Provider Name:Meño Edwards, 04/22/2025 09:30:00 AM, [address] [place] [address] [place], [address], Progress Notes * Jacy DOMINIQUE SDOB: [birth year] (69 yo F)Acc No.[id number]:06/14/2024 Patient:?Jacy DOMINIQUE :1955???Age:69 Y???Sex:Female Address:[place] [address] * true * Date:? Generated for Printi ng/Faxing/eTransmitting on:?10/03/2024 01:12 PM EDT
--- OUTSIDE RECORDS SUMMARY | 2024-10-03 13:12 | XMS_ITS ---
Author Organization Meño Edwards III, MD Address [address] [place] [address] Care Team Providers Care Landscaper Helper Name Role Phone Meño Edwards Primary Care Provider [phone] REASON FOR VISIT Rx Refill Medications Medication SIG (Take, Route, Frequency, Duration) Notes Start Date End Date Status amLODIPine Besylate 5 MG 1 tablet Orally Once a day for 30 days Active Social History Sex Assigned At : Social History Observation Description Sex Assigned At Female Encounters Encounter Location Date Provider Diagnosis Meño Edwards III, MD [address] [place] [address] [place] [address] 08/31/2024 Meño Edwards Plan Of Treatment Medication Medication Name Sig Start Date Stop Date Notes amLODIPine Besylate 5 MG 1 tablet Orally Once a day for 30 days Next Appt Details Provider Name:Meño Edwards, 11/21/2024 09:30:00 AM, [address] [place] [address] [place], [address], Provider Name:Meño Edwards, 04/22/2025 09:30:00 AM, [address] [place] [address] [place], [address], Progress Notes * Jacy DOMINIQUE SDOB: [birth year] (69 yo F)Acc No.[id number]:08/31/2024 Patient:?Jacy DOMINIQUE :1955???Age:69 Y???Sex:Female [facility] [place] [address] * Refills? Refill amLODIPine Besylate Tablet, 5 MG, Orally, 30 Tablet, 1 tablet, Once a day, 30 days, Refills=11 * true * Date:? Generated for Timothy kennedy/Ngoc/Yogesh on:?10/03/2024 01:11 PM EDT
--- OUTSIDE RECORDS SUMMARY | 2024-10-03 13:13 | XMS_ITS ---
Author Organization [facility] Address [address] [facility] [place] [address] Care Team Providers Care Electronic Communications Technician Name Role Phone Grace BAKER, Meño Primary Care Provider Unavailab London Braswell Unavailable [phone] Vin Quevedo Unavailable [phone] REASON FOR VISIT Seen Sooner Encounters Encounter Location Date Provider Diagnosis [facility] [address] [address] 10/06/2023 Vin Quevedo Plan Of Treatment No Information Progress Notes * Jacy DOMINIQUE SDOB: [birth year] (69 yo F)Acc No.[id number]:10/06/2023 Progress Note Patient:?BEVERLEYPillo PEREIRAe Alexandro Provider:?Vin Quevedo DPM :1955???Age:68 Y???Sex:Female D ate:10/06/2023 Address:[address] [place] Pcp:Meño Edwards MD Subjective: * Chief Complaints: [...] Quevedo DPM Date:?2023 Generated for Timothy kennedy/Ngoc/Yogesh on:?10/03/2024 01:12 PM EDT
--- OUTSIDE RECORDS SUMMARY | 2024-10-03 13:13 | XMS_ITS | Clinical Summary ---
Author Organization [facility] Address [address] [place] [address] Phone Care Team Providers Care Bit Sander Name Role Phone Meño Edwards MD Primary Care Provider [phone] Allergies Active Allergy Reactions Criticality Noted Date [...] Colorectal Cancer Screening: Sigmoidoscopy 2002 Influenza Vaccine (Season Ended) 2025 Hepatitis B Vaccine Aged Out No longe r eligible based on patient's age to complete this topic Insurance [facility] MEDICARE [facility] MEDICARE Care Teams Bit Sander Relationship Specialty Start Date End Date Meño Edwards MD [address] [place], [place] [id number] [place], [place] PCP - General 07/07/20
--- OUTSIDE RECORDS SUMMARY | 2024-10-03 13:13 | XMS_ITS ---
Author Organization Meño Edwards III, MD Address [address] [facility] [place] [address] Care Team Providers Care Esthetics Instructor Name Role Phone Meño Edwards Primary Care Provider [phone] Allergies Allergen (clinical drug ingredient) Drug/Non Drug [...] Date Provider Diagnosis Meño Edwards III, MD [address] [place] [address] [address], [place] [address] 08/23/2024 Meño Edwards Underweight R63.6 ; CKD [...] list for a kidney transplant by her house cleaner. 08/23/2024 Mild intermittent asthma without complication (ICD-10 - J45.20) She has had no difficulty with asthma lately. She has an inhaler which she has not been using. 08/23/2024 Thrombocytopenia (ICD-10 - D69.6) She has had no bleeding and is avoiding aspirin. 08/23/2024 Thyroiditis (ICD-10 - E06.9) This is not an active problem. She remains under the care of her pv installer tech. She is asymptomatic at this time. 08/23/2024 [...] follow-up Provider Name:Meño Edwards, 11/21/2024 09:30:00 AM, [address] [place] [address] [address], [place], [address], Provider Name:Meño Edwards, 04/22/2025 09:30:00 AM, [address] [place] [address] [address], [place], [address], Progress Notes * Jacy DOMINIQUE SDOB: [birth year] (69 yo F)Acc No.[id number]:08/23/2024 Progress Notes Patient:?Jacy DOMINIQUE S Provider:?Meño Edwards MD :1955???Age:69 Y???Sex:Female D ate:08/23/2024 Address:[address] [place] [address] Subjective: * Chief Complaints: * ???UnderweightPancytopeniaAs thmaCKDGoutMacular degenerationOn kidney transplant list * HPI: ???COVID-19 Screening:? [place] when. ?Questions?Have you had any [...] her new glasses. She has seen an legal billing clerk twice this year for this issue. The [...] History:?wisdom leif th extraction tonsillectomy septum repair Q4C0Be9 right cataract surgery 2012colonoscopy, adenomatous polyp 2004colonoscopy, [...] non-smoker ???She is single and comes fom [facility]. She has no children. * Medications:?TakingPulmicort [...] Filt Rate 13 15 14 * Lab:[facility] [place]. Pane l Fast * Collection Date 08/21/2024 [...] list for a kidney transplant by her house cleaner.???2.?Underweight - R63.6???Notes :Her weight has been stable [...] She remains under the care of her pv installer tech. She is asymptomatic at this time.???6.?Osteoporosis - [...] Provider:?Meño Edwards MD Date:?07/29 Generated for Timothy kennedy/Ngoc/eTransmitting on:?10/03/2024 01:13 PM EDT History and Physical Notes * [...]
== END 2024-10-03 11:51 | disposition home or self-care (01) ==
LOC: HO.HKA 11:10
PROVIDERS: PCP Internal Medicine Medical Oncology; Visit Provider Internal Medicine Nephrology
DX: N18.4 Chronic kidney disease, stage 4 (severe) (principal); D63.1 Anemia in chronic kidney disease; N25.81 Secondary hyperparathyroidism of renal origin; I15.1 Hypertension secondary to other renal disorders; M10.372 Gout due to renal impairment, left ankle and foot
CPT/HCPCS: 99214

== ENCOUNTER → 2024-10-03 11:09 | Outpatient (BNVA) | payer MEDICARE, SELFPAY | PROVIDERS: PCP Internal Medicine Medical Oncology; Visit Provider Internal Medicine Nephrology | DX: I15.1 Hypertension secondary to other renal disorders (principal); N18.4 Chronic kidney disease, stage 4 (severe); D63.1 Anemia in chronic kidney disease; N25.81 Secondary hyperparathyroidism of renal origin; M10.372 Gout due to renal impairment, left ankle and foot | CPT/HCPCS: 36415; 80051; 82310; 82565; 84520; 85025; 96372; 99212; Q5106 ==

== ENCOUNTER 2024-10-03 12:21 | Outpatient (REF) | payer MEDICARE, SELFPAY ==
[2024-10-03 13:34] LABS: MANUAL DIFF FLAG NO
[2024-10-03 14:00] LABS: Anion Gap 14 (12-20); Blood Urea Nitrogen 80 mg/dL (9-16); Calcium 9.4 mg/dL (8.4-10.2); Carbon Dioxide 27 mmol/L (22-29); Chloride 106 mmol/L (96-108); Estimated Glomerular Filt Rate 14; Potassium 4.5 mmol/L (3.3-5.1); Sodium 142 mmol/L (135-145)
--- OUTSIDE RECORDS SUMMARY | 2024-10-03 14:19 | XMS_ITS | Continuity of Care Document ---
Author Organization [facility] Address [address] [facility] [address] [place] [address] Phone [phone] Social History Type Date Description Comments Sex Unknown Medical Devices Description No Information Available Encounters Description No Information Available Assessments Description No Information Available Plan of Treatment No Information Available Functional Status Description No Information Available Mental Status Description No Information Available Referrals Description No Information Available
--- OUTSIDE RECORDS SUMMARY | 2024-10-03 14:19 | XMS_ITS | Clinical Summary ---
Author Organization [facility] Address [address] [place] [address] Care Team Providers Care Pecan Huller Name Role Phone Unavailable Primary Care Provider [...]
--- OUTSIDE RECORDS SUMMARY | 2024-10-03 14:19 | XMS_ITS | Clinical Summary ---
Author Organization [facility] Address [address] [place] [address] Phone Care Team Providers Care Jr. Java Developer Name Role Phone Meño Edwards MD Primary Care Provider Allergies Active Allergy Reactions Criticality Noted Date [...] age to complete this topic Insurance [facility] MEDICARE [facility] MEDICARE Care Teams Jr. Java Developer Relationship Specialty Start Date End Date Meño Edwards MD [address] [place], [place] [id number] [place], [place] PCP - General 07/07/20
--- OUTSIDE RECORDS SUMMARY | 2024-10-03 14:20 | XMS_ITS | Patient Health Record ---
Author Organization Meño Edwards III, MD Address [address] [place] [address] Care Team Providers Care Emergency Man Name Role Phone Meño Edwards Primary Care [...] ff Reviewed date:02/26/2024 07:28:35 AM Interpretation: Performing Lab:[facility], [address] [place] [phone] Notes/Report: White Blood Count 4.7 4.8-10.8 X10*3/uL [...] Panel Reviewed date:02/26/2024 07:28:35 AM Interpretation: Performing Lab:[facility], [address] [place] [phone] Notes/Report: Sodium 142 135-145 mmol/L Potassium 4.8 3.3-5.1 mmol/L Chloride 108 96-108 mmol/L Carbon Dioxide 23 22-29 mmol/L Anion Gap 16 12-20 Blood Urea Nitrogen 66 9-16 mg/dL Creatinine 3.22 0.5-1.4 mg/dL Estimated Glomerular Filt Rate 14 NOTE: For -Japanese individuals, multiply the result by 1.210. Chronic [...] Electrolytes Reviewed date:03/26/2024 06:07:59 AM Interpretation: Performing Lab:[facility], [address] [place] [phone] Notes/Report: Sodium 140 135-145 mmol/L Potassium 5.5 3.3-5.1 mmol/L Chloride 110 96-108 mmol/L Carbon Dioxide 21 22-29 mmol/L Anion Gap 15 12-20 Blood Urea Nitrogen Reviewed date:03/26/2024 06:07:59 AM Interpretation: Performing Lab:[facility], [address] [place] [phone] Notes/Report: Blood Urea Nitrogen 63 9-16 mg/dL Creatinine Reviewed date:03/26/2024 06:07:59 AM Interpretation: Performing Lab:[address] [phone] Notes/Report: Creatinine 3.04 0.5-1.4 mg/dL Estimated Glomerular Filt Rate 15 NOTE: For -Japanese individuals, multiply the result by 1.210. Chronic Kidney Disease: Estimated GFR < 60 mL/min/1.73m2 Severe Kidney Disease: Estimated GFR < 15 mL/min/1.73m2 Creatinine Clearance Urine Reviewed date:03/26/2024 06:07:59 AM Interpretation: Performing Lab:[facility], [address] [place] [phone] Notes/Report: [id number] Creatinine (CrCl) 3.04 0.5-1.4 mg/dL Creatinine Clearance 18.4 85-125 mL/min Creatinine, 24Hr Urine 0.8 1.0-2.0 G/Day Creatinine, mg/dL 40.82 Total Volume 24 Hour Urine 1974 Complete Blood Count Auto Di ff Reviewed date:04/15/2024 07:27:15 AM Interpretation: Performing Lab:[address] [phone] Notes/Report: White Blood Count 4.2 4.8-10.8 X10*3/uL [...] NRBC Abs Auto 0.000 0.0-0.012 X10*3/uL Comprehensive [place]. Panel Fa st Reviewed date:04/15/2024 07:27:15 AM Interpretation: Performing Lab:[facility], [address] [place] [phone] Notes/Report: Sodium 143 135-145 mmol/L Potassium 4.8 3.3-5.1 mmol/L Chloride 109 96-108 mmol/L Carbon Dioxide 26 22-29 mmol/L Anion Gap 13 12-20 Blood Urea Nitrogen 84 9-16 mg/dL Creatinine 3.13 0.5-1.4 mg/dL Estimated Glomerular Filt Rate 15 NOTE: For -Japanese individuals, multiply the result by 1.210. Chronic [...] Panel Reviewed date:04/15/2024 07:27:15 AM Interpretation: Performing Lab:[address] [phone] Notes/Report: Triglycerides 95 <150 mg/dL Desirable Triglyceride: [...] Electrolytes Reviewed date:06/04/2024 05:33:48 AM Interpretation: Performing Lab:[facility], [address] [place] [phone] Notes/Report: Sodium 142 135-145 mmol/L Potassium 5.1 3.3-5.1 mmol/L Chloride 107 96-108 mmol/L Carbon Dioxide 29 22-29 mmol/L Anion Gap 11 12-20 Blood Urea Nitrogen Reviewed date:06/04/2024 05:33:48 AM Interpretation: Performing Lab:[address] [phone] Notes/Report: Blood Urea Nitrogen 80 9-16 mg/dL Creatinine Reviewed date:06/04/2024 05:33:48 AM Interpretation: Performing Lab:[facility], [address] [place] [phone] Notes/Report: Creatinine 3.57 0.5-1.4 mg/dL Estimated Glomerular Filt Rate 13 Chronic Kidney Disease: Estimated GFR < 60 mL/min/1.73m2 Severe Kidney Disease: Estimated GFR < 15 mL/min/1.73m2 Complete Blood Count Auto Di ff Reviewed date:08/25/2024 06:24:46 PM Interpretation: Performing Lab:[facility], [address] [place] [phone] Notes/Report: White Blood Count 4.5 4.8-10.8 X10*3/uL [...] NRBC Abs Auto 0.000 0.0-0.012 X10*3/uL Comprehensive [place]. Panel Fa st Reviewed date:08/25/2024 06:24:46 PM Interpretation: Performing Lab:[facility], [address] [place] [phone] Notes/Report: Sodium 143 135-145 mmol/L Potassium 5.4 [...] Panel Reviewed date:08/25/2024 06:24:46 PM Interpretation: Performing Lab:[facility], [address] [place] [phone] Notes/Report: Triglycerides 125 <150 mg/dL Desirable Triglyceride: [...] Thyroxine) Reviewed date:08/25/2024 06:24:46 PM Interpretation: Performing Lab:[facility], [address] [place] [phone] Notes/Report: Free T4 (Free Thyroxine) 0.93 0.71-1.85 ng/dL Thyroid Stimulating Hormone Reviewed date:08/25/2024 06:24:47 PM Interpretation: Performing Lab:[address] [phone] Notes/Report: Thyroid Stimulating Hormone 4.83 0.32-4.0 uIU/mL Note: A sustained TSH level above 2.5 uIU/mL may warrant further investigation. TSH 3rd Generation ([facility]) Complete Blood Count Auto Di ff Reviewed date:09/09/2024 10:16:33 AM Interpretation: Performing Lab:[address] [phone] Notes/Report: White Blood Count 4.3 4.8-10.8 X10*3/uL [...] Abs Auto 0.000 0.0-0.012 X10*3/uL Electrolytes Reviewed date:09/09/2024 10:16:33 AM Interpretation: Performing Lab:[facility], [address] [place] [phone] Notes/Report: Sodium 141 135-145 mmol/L Potassium 5.4 3.3-5.1 mmol/L Chloride 112 96-108 mmol/L Carbon Dioxide 20 22-29 mmol/L Anion Gap 14 12-20 Blood Urea Nitrogen Reviewed date:09/09/2024 10:16:33 AM Interpretation: Performing Lab:[facility], [address] [place] [phone] Notes/Report: Blood Urea Nitrogen 99 9-16 mg/dL Creatinine Reviewed date:09/09/2024 10:16:33 AM Interpretation: Performing Lab:[facility], [address] [place] [phone] Notes/Report: Creatinine 3.45 0.5-1.4 mg/dL Estimated Glomerular Filt Rate 13 Chronic Kidney Disease: Estimated GFR < 60 mL/min/1.73m2 Severe Kidney Disease: Estimated GFR < 15 mL/min/1.73m2 Calcium Reviewed date:09/09/2024 10:16:33 AM Interpretation: Performing Lab:[facility], [address] [place] [phone] Notes/Report: Calcium 9.0 8.4-10.2 mg/dL IRON PROFILE Reviewed date:09/09/2024 10:16:33 AM Interpretation: Performing Lab:[facility], [address] [place] [phone] Notes/Report: Iron 85 30-160 mcg/dL Total Iron Binding Capacity 344 228-428 mcg/dL Percent Iron Saturation 25 15-50 % Unsaturated Iron Binding 259 Ferritin Reviewed date:09/09/2024 10:16:33 AM Interpretation: Performing Lab:[facility], [address] [place] [phone] Notes/Report: Ferritin 50 10-250 ng/mL Vitamin D 25-OH Total Reviewed date:09/09/2024 10:16:33 AM Interpretation: Performing Lab:[facility], [address] [place] [phone] Notes/Report: Vitamin D 25-OH Total 37.3 >30 [...] such as LC-MS/MS. Parathyroid Hormone Intact Reviewed date:09/09/2024 10:16:33 AM Interpretation: Performing Lab:[facility], [address] [place] [phone] Notes/Report: Parathyroid Hormone Intact 289.2 8.7-77.1 pg/mL MM tomosynthesis screening B I (Not yet reviewed by provider) Interpretation: Performing Lab: Notes/Report: [facility]'s [address] [place] [address] Mammography Report Signed Patient: Jacy Goldberg MR#: [id number] : 1955 Acct:[id number] Age/Sex: 69 / F ADM Date: 09/24/24 Loc: [facility].MAMMO Attending Dr: Meño Edwards MD Ordering Physician: Meño Edwards MD Results: 2Benign Findings Date of Service: 09/24/24 Follow Up: 1 Year From Orig inal Mammogram Procedure(s): MM tomosynthesis screening BI Accession Number(s): [id number] cc: Meño Edwards MD EXAMINATION: MM SCREENING DIGITAL BREAST TOMOSYNTHESIS, BILATERAL CLINICAL INFORMATION: Screening. Asymptomatic. COMPARISON: Mammography: Comparison is made with available priors TECHNIQUE: Digital breast mammography with tomosynthesis is performed in both the craniocaudal and mediolateral oblique views along with computer-aided detection (CAD). FINDINGS: The breasts are heterogeneously dense, which may obscure small masses (ACR BI-RADS breast composition Category c). Right marker clip. There are no significant masses, abnormal calcifications, or other abnormalities. MM/MM tomosynthesis screening BI IMPRESSION: No mammographic evidence of malignancy. ASSESSMENT: BI-RADS BI-RADS 2 - Benign Findings RECOMMENDATION: Routine annual mammography screening. 1 year F/U This examination should not preclude the clinical evaluation of a suspicious palpable abnormality. This patient's information was entered into a reminder system with a target due date for their next mammogram. Electronically signed by: Trisha Triana DO 09/29/2024 05:33 PM EDT RP Dictated By: Trisha Triana DO Signed By: <Electronically signed by Trisha Triana DO in OV> 09/29/24 1733 DD/ 0830 TD/TT: 09/24/24 0852 Paraprofessional Education Assistant: [place] [facility]'s [address] [place] [address] Mammography Report Signed Patient: Shubham Goldberg MR#: [id number] : 1955 Acct:[id number] Age/Sex: 69 / F ADM Date: 09/24/24 Loc: HO.MAMMO Attending Dr: Meño Edwards MD Ordering Physician: Meño Edwards MD Results: 2Benign Findings Date of Service: 09/24/24 Follow Up: 1 Year From Orig inal Mammogram Procedure(s): MM tomosynthesis screening BI Accession Number(s): [id number] cc: Meño Edwards MD EXAMINATION: MM SCREENING DIGITAL BREAST TOMOSYNTHESIS, BILATERAL CLINICAL INFORMATION: Screening. Asymptomatic. COMPARISON: Mammography: Compari son is made with available priors TECHNIQUE: Digital breast mammography with tomosynthesis is performed in both the craniocaudal and mediolateral oblique views along with computer-aided detection (CAD). FINDINGS: The breasts are heterogeneously dense, which may obscure small masses (ACR BI-RADS breast composition Category c). Right marker clip. There are no significant masses, abnormal calcifications, or other abnormalities. MM/MM tomosynthesis screening BI IMPRESSION: No mammographic evidence of malignancy. ASSESSMENT: BI-RADS BI-RADS 2 - Benign Findings RECOMMENDATION: Routine annual mammography screening. 1 year F/U This examination julia uld not preclude the clinical evaluation of a suspicious palpable abnormality. This patient's information was entered into a reminder system with a target due date for their next mammogram. Electronically yue d by: Trisha Triana DO 09/29/2024 05:33 PM EDT Dictated By: Trisha Triana DO Signed By: <Electronically signed by Trisha Triana DO in OV> 09/29/24 1733 DD/ 9 TD/TT: 09/24/24 0852 Paraprofessional Education Assistant: Reason For Referral No Information Medications Medication [...] Problem Status W/U Status Risk Notes Problem 706045197 Underweight (R63.6) Active confirmed Her weight has been stable lately with a body mass index of 18. Problem 636808565 Pancytopenia (D61.818) Active confirmed All 3 cell line s have been diminished. This is likely due to her chronic renal failure. The mean cell volume remains slightly elevated. It is being observed carefully. Problem 763198821 Skin cancer (C44.90) Active confirmed he recently had a basal cell carcinoma removed from the right side of her face and her left arm. There was no sign of residual disease today. Problem 934431272 Thrombocytopeni a (D69.6) Active confirmed She has had no bleeding and is avoiding aspirin. Problem Hyperlipidemia (84522492) Hyperlipidemia, unspecified (E78.5) Active confirmed her lipids have been stable. No blood work is available today. A fasting lipid profile has been ordered. No change was made in her regimen. Problem Uncomplicated asthma (disorder) (448463424) Unspecified asthma, uncomplicated (J45.909) Active confirmed She has had no episodes of asthma recently. Problem 019360002 Neutropenia (D70.9) Active confirmed Her white blood cell count is 4000. The neutrophil population is normal and the lymphocyte count is 1000 which is slightly low. Problem 769873592 Mild intermittent asthma without complication (J45.20) Active confirmed She has had no difficulty with asthma lately. She has an inhaler which she has not been using. Problem 42059981 Cataracts, bilateral (H26.9) Active confirmed She will continue to see the liquor merchant to resolved these problems. Problem Osteoporosis (24244071) Osteoporosis (M81.0) Active confirmed She has been compliant with his therapy. It was reviewed with her today. Problem 268642474 Osteoarthritis (M19.90) Active confirmed She will continue on current therapy at this time. She will avoid NSAIDs. Problem 704751482 H/O hyperthyroidism (Z86.39) Active confirmed She reports a good appetite. She is consuming adequate calories. She remains underweight. Her thyroid function tests will be checked once again. She has a history of thyroiditis. She is under the care of an diet therapist. Problem 50673630 Thyroiditis (E06.9) Active confirmed This is not an active problem. She remains under the care of her diet therapist. She is asymptomatic at this time. Problem Hypercholesterole brian (84668535) Hypercholestero lemia (E78.00) Active confirmed Comprehensive blood work with a fasting lipid profile is being done periodically. No change in her medication was made today. Her lipids have been controlled. Problem 225650326 CKD (chronic kidney disease) stage 3, GFR 30-59 ml/min (N18.3) Active confirmed Her renal function continues to decline. She is followed closely by nephrology. Her recent BUN is 107, Creatinine 3.94, GFR 11.. She has been placed on a list for a kidney transplant by her party coordinator. Problem 496518607 Macular degeneration of both eyes, unspecified type (H35.30) Active confirmed Problem 944001039 Chronic gout without tophus, unspecified cause, unspecified site (M1A.9XX0) Active confirmed She will continue the colchicine 1 tablet daily until the pain has resolved. Problem Chronic kidney disease stage 3 (disorder) (204301020) Chronic kidney disease, stage 3 unspecified (N18.30) Active confirmed Problem Chronic kidney disease stage 3A (disorder) (199109578) Chronic kidney disease, stage 3a (N18.31) Active confirmed Her BUN is 70.The creatinine is 2.96. She is up-to-date with nephrology and continues on therapy without fail. Problem 10026276 Acute idiopathic gout of left foot (M10.072) Active confirmed She was given a course of colchicine. This was adjusted for renal failure to 1 tablet daily Problem 59786924 Acute idiopathic gout involving toe of left foot (M10.072) Active confirmed The gout has no w resolved and she is on allopurinol. Problem 586855404 Peripheral edema (R60.0) Active confirmed She will [...] Date Provider Diagnosis Meño Edwards III, MD [address] [place] [address] [place] [address] 10/20/2023 Meño Edwards Hyperlipidemia, unsp ecified E78.5 ; Underweight R63.6 ; Pancytopenia D61.818 ; Mild intermittent asthma without complication J45.20 ; Thyroiditis E06.9 ; Hypercholesterolemia E78.00 ; Osteoporosis M81.0 ; Chronic kidney disease, stage 3a N18.31 and Acute idiopathic gout involving toe of left foot M10.072 Meño Edwards III, MD [address] [place] [address] [place] [address] 12/15/2023 Meño Singh, unsp ecified E78.5 ; Underweight R63.6 ; Mild intermittent asthma without complication J45.20 ; CKD (chronic kidney disease) stage 3, GFR 30-59 ml/min N18.3 ; Pancytopenia D61.818 ; Unspecified asthma, uncomplicated J45.909 and Skin cancer C44.90 Meño Edwards III, MD [address] [place] [address] [place] [address] 01/23/2024 Meño Singh, unsp ecified E78.5 ; Pruritic rash L28.2 ; Underweight R63.6 ; Mild intermittent asthma without complication J45.20 ; Pancytopenia D61.818 ; Thyroiditis E06.9 and Hypercholesterolemia E78.00 Meño Edwards III, MD [address] [place] [address] [place] [address] 01/31/2024 Meño Edwards Hyperlipidemia, unsp ecified E78.5 ; Underweight R63.6 ; Pancytopenia D61.818 ; Mild intermittent asthma without complication J45.20 ; Acute idiopathic gout involving toe of left foot M10.072 ; Chronic kidney disease, stage 3a N18.31 ; Osteoporosis M81.0 ; Hypercholesterolemia E78.00 and Peripheral edema R60.0 Meño Edwards III, MD [address] [place] [address] [place] [phone] 02/03/2024 Meño Edwards Hyperlipidemia, unsp ecified E78.5 ; Underweight R63.6 ; Mild intermittent asthma without complication J45.20 ; Chronic kidney disease, stage 3a N18.31 and Peripheral edema R60.0 Meño Edwards III, MD [address] [place] [address] [place] [id number] 02/10/2024 Meño Edwards Hyperlipidemia, unsp ecified E78.5 ; Pedal edema R60.0 ; Mild intermittent asthma without complication J45.20 ; Underweight R63.6 ; Acute idiopathic gout involving toe of left foot M10.072 ; Osteoporosis M81.0 and Chronic kidney disease, stage 3a N18.31 Meño Edwards III, MD [address] [place] [address] [place] [address] 04/19/2024 Meño Edwards Hyperlipidemia, unsp ecified E78.5 ; CKD (chronic kidney disease) stage 3, GFR 30-59 ml/min N18.3 ; Pancytopenia D61.818 ; H/O hyperthyroidism Z86.39 ; Hypercholesterolemia E78.00 ; Neutropenia D70.9 ; Underweight R63.6 ; Mild intermittent asthma without complication J45.20 and Acute idiopathic gout involving toe of left foot M10.072 Meño Edwards III, MD [address] [place] [address] [place] [phone] 08/23/2024 Meño Edwards Underweight R63.6 ; CKD (chronic kidney disease) stage 3, GFR 30-59 ml/min N18.3 ; Mild intermittent asthma without complication J45.20 ; Thrombocytopenia D69.6 ; Thyroiditis E06.9 and Osteoporosis M81.0 Meño Edwards III, MD [address] [place] [address] [place] [address] 12/22/2023 Meño Edwards III, MD [address] [place] [address] [address] [place], [place] [address] 06/14/2024 Meño Edwards III, MD [address] [place] [address] [address] [place] [address] 08/31/2024 Meño Edwards Assessments Encounter Date Diagnosis (ICD Code) Assessment Notes T reatment Notes Treatment Clinical Notes 10/20/2023 Underweight (ICD-10 - R63.6) 10/20/2023 Hyperlipidemia, [...] list for a kidney transplant by her party coordinator. 10/20/2023 Pancytopenia (ICD-10 - D61.818) She continues [...] She is under the care of an diet therapist. 08/23/2024 Thrombocytopenia (IC D-10 - D69.6) She has had no bleeding and is avoiding aspirin. 10/20/2023 Thyroiditis (ICD-10 - E06.9) This is not an active problem. She remains under the care of her diet therapist. She is asymptomatic at this time. 12/15/2023 [...] She remains under the care of her diet therapist. She is asymptomatic at this time. 10/20/2023 Hypercholesterolemia (ICD-10 - E78.00) Her lipids will be followed carefully. They're barely out of range. 12/15/2023 Unspecified asthma, uncomplicated (ICD-10 - J45.909) She has had no episodes of asthma recently. 01/23/2024 Thyroiditis (ICD-10 - E06.9) This is not an active problem. She remains under the care of her diet therapist. She is asymptomatic at this time. 01/31/2024 [...] Order Date PROFILE, FASTING (COMPREHENSIVE METABOLI C) 08/14/2021 PROFILE, FASTING (COMPREHENSIVE METABOLI C) 10/07/2022 PROFILE, FASTING (COMPREHENSIVE METABOLI C) 10/20/2020 PROFILE, FASTING (COMPREHENSIVE METABOLI C) 04/07/2023 PROFILE, FASTING (COMPREHENSIVE METABOLI C) 12/13/2017 PROFILE, FASTING (COMPREHENSIVE METABOLI C) 04/01/2022 PROFILE, FASTING (COMPREHENSIVE METABOLI C) 04/13/2021 PROFILE, FASTING (COMPREHENSIVE METABOLI C) 11/11/2021 PROFILE, FASTING (COMPREHENSIVE METABOLI C) 01/14/2023 PROFILE, FASTING (COMPREHENSIVE METABOLI C) 08/23/2024 PROFILE, FASTING (COMPREHENSIVE METABOLI C) 01/12/2021 PROFILE, FASTING (COMPREHENSIVE METABOLI C) 04/19/2024 PROFILE, FASTING (COMPREHENSIVE METABOLI C) 10/20/2023 PROFILE, RANDOM (COMPREHENSIVE METABOLIC ) 01/31/2024 LIPID PANEL 01/12/2021 LIPID PANEL 10/07/2022 LIPID PANEL 10/20/2020 LIPID PANEL 12/13/2017 LIPID PANEL 04/01/2022 LIPID PANEL 11/11/2021 LIPID PANEL 01/14/2023 GGT 10/20/2020 FREE T4 (FT4) 10/11/2017 TSH (THYROID STIMULATING HORMONE) 2023 TSH (THYROID STIMULATING HORMONE) 2017 CBC w DIFF 01/14/2023 CBC w DIFF 08/14/2021 CBC w DIFF 01/12/2021 CBC w DIFF 04/19/2024 CBC w DIFF 04/07/2023 CBC w DIFF 10/07/2022 CBC w DIFF 04/13/2021 CBC w DIFF 12/13/2017 CBC w DIFF 04/01/2022 CBC w DIFF 10/20/2020 CBC w DIFF 11/11/2021 SED RATE (ESR) 11/11/2021 BONE DENSITY DEXA 05/19/2020 BONE DENSITY DEXA 06/05/2020 BONE DENSITY DEXA 12/07/2021 US CAROTID BILATERAL DOPPLER 07/19/2018 VITAMIN D 25-OH TOTAL 04/01/2022 CBC WITH AUTO DIFF 08/23/2024 CBC WITH AUTO DIFF 10/20/2023 CBC WITH AUTO DIFF 01/31/2024 Lipid Panel 08/23/2024 Lipid Panel 10/20/2023 Lipid Panel 08/14/2021 Lipid Panel 04/19/2024 Lipid Panel 04/07/2023 Lipid Panel 04/13/2021 Vitamin D 25-OH Total 04/07/2023 Free T4 (Free Thyroxine) 04/19/2024 MM tomosynthesis screening BI 09/24/2024 Next Appt Details Provider Name:Meño Edwards, 11/21/2024 09:30:00 AM, [address] [place] [address] [address], [place], [address], Provider Name:Meño Edwards, 04/22/2025 09:30:00 AM, [address] [place] [address] [address], [place], [phone], Insurance Providers Payer Name Payer Address Payer Phone Subscriber Number Group Number Insured Name Patient Relationship to Insured Coverage Start Date Coverage End Date MEDICARE NGS [address] [facility] [address] [id number] Jacy Goldberg Self - patient is the insured [facility] [address] [place], [place] [id number] Jacy Goldberg Self - patient is the insured Medical (General) History Medical History History ICD Code degenerative arthritis of the cervical s pine spine asthma osteoarthritis hemorhoids thrombocytopenia cataracts last bilateral mammogram 12/18/[address] [facility] R&I anemia hyperthyroid abnormal renal function Surgical History Surgery Date(Month/Year) wisdom teeth extraction tonsillectomy septum repair [id number] right cataract surgery 2011 colonoscopy, adenomatous polyp 2004 colonoscopy, wnl 2008 biopsy on left index finger 09/2018 Basal Cell removed, Left arm 01/10/2023 No history Hospitalization History Reason Date(Month/Year) No history
[2024-10-03 14:25] LABS: Basophils Percent Auto 0.4 % (0-2); Eosinophils Absolute Auto 0.2 X10*3/uL (0.0-0.4); Eosinophils Percent Auto 2.9 % (0-4); Hematocrit 28.8 % (37.0-47.0); Hemoglobin 8.9 g/dl (12.0-16.0); Imm Gran Abs Auto 0.01 X10*3/uL (0.00-0.03); Imm Gran Pct Auto 0.2 % (0.0-0.4); Lymphocytes Absolute Auto 0.8 X10*3/uL (1.2-4.9); Lymphocytes Percent Auto 16.2 % (20-40); Mean Corpuscular HGB Conc 30.9 g/dl (31.0-35.0); Mean Corpuscular Hemoglobin 30.9 pg (27.0-33.0); Mean Platelet Volume 12.4 fL (9.4-12.3); Monocytes Absolute Auto 0.5 X10*3/uL (0.1-1.2); Monocytes Percent Auto 8.8 % (2-11); Neutrophils Absolute Auto 3.7 x10*3/uL (2.0-8.3); Neutrophils Percent Auto 71.5 % (45-73); Platelet Count 123 X10*3/uL (160-400); Red Blood Count 2.88 X10*6/uL (4.20-5.50); Red Cell Distribution Width 13.4 % (11.0-16.0); White Blood Count 5.2 X10*3/uL (4.8-10.8)
== END 2024-10-03 12:22 | disposition home or self-care (01) ==
LOC: HO.10HDL 12:21
PROVIDERS: Visit Provider Internal Medicine Nephrology
DX: Z13.89 Encounter for screening for other disorder (principal)
CPT/HCPCS: 36415; 80051; 82310; 82565; 84520; 85025

== ENCOUNTER 2024-11-23 08:15 | Outpatient (REF) | payer MEDICARE, SELFPAY ==
--- OUTSIDE RECORDS SUMMARY | 2024-11-23 08:17 | XMS_ITS ---
Author Organization Meño Edwards III, MD Address [address] [facility] [address] Care Team Providers Care Welder And Fitter Name Role Phone Meño Edwards Primary Care [...] Date Provider Diagnosis Meño Edwards III, MD [address] [place] [address] [place] [address] 08/31/2024 Meño Edwards Plan Of Treatment Medication Medication Name Sig Start Date Stop Date Notes amLODIPine Besylate 5 MG 1 tablet Orally Once a day for 30 days Next Appt Details Provider Name:Meño Edwards, 04/22/2025 09:30:00 AM, [address] [place] [address] [place], [address], Progress Notes * Jacy DOMINIQUE SDOB: [birth year] (69 yo F)Acc No.[id number]:08/31/2024 Patient:?Jacy DOMINIQUE :1955???Age:69 Y???Sex:Female Address:[address] [place] [address] * Refills? Refill amLODIPine Besylate Tablet, 5 MG, Orally, 30 Tablet, 1 tablet, Once a day, 30 days, Refills=11 * true * Date:? Generated for Timothy kennedy/Ngoc/Yogesh on:?11/23/2024 08:16 AM EDT
[2024-11-23 12:07] LABS: Parathyroid Hormone Intact 251.2 pg/mL (8.7-77.1)
== END 2024-11-23 08:16 | disposition home or self-care (01) ==
LOC: HO.10HDL 08:15
PROVIDERS: Visit Provider Internal Medicine Nephrology
DX: N18.4 Chronic kidney disease, stage 4 (severe) (principal)
CPT/HCPCS: 36415; 83970

== ENCOUNTER 2024-11-28 10:41 | Outpatient (AMB) | payer MEDICARE, SELFPAY ==
[2024-11-28 10:44] VITALS: BP 128/50; PULSE 60; O2SAT 97; BMI 19.6
--- NOTE | 2024-11-28 10:44 | HO.NEPHOV_ITS ---
Vital Signs 11/28/24 10:44 Height 5 ft 4 in Weight 114 lb 2 oz BMI 19.6 BP 128/50 L Blood Pressure Location Rt brachial Position Sitting Pulse 60 Pulse Source Pulse Oximeter Pulse Oximetry (%) 97 Oxygen Delivery Method Room Air Intake Visit Reasons: FU Marker Hand Required: No Accompanied by: Self / Same As Patient Allergies No Known Allergies Allergy (Verified 11/28/24 10:44) HPI Comments Details: Jacy was seen in follow-up of her hypertension and advanced chronic kidney disease. She has not had any flare up of gout on her left foot. She is tolerating Allopurinol . She denies any uremic symptoms. She has not taken any nonsteroidal anti-inflammatories. Her blood pressure control is optimal. Her Amlodipine has been cut back due to edema. She maintains good hydration. She denies chest pain, shortness of breath, paroxysmal nocturnal dyspnea, orthopnea or urinary symptoms. Her last 24 hour urine collection showed a GFR close to 18 mls/minute. He has hyperkalemia and is getting treatment for it. She is listed for renal [place] [facility] [place] [facility] [place] [facility] Medical History (Updated 06/02/24 @ 15:41 by Marquise Ashford MD) Degenerative arthritis of cervical spine Osteoarthritis Hypothyroidism Anemia Thrombocytopenia Chronic kidney disease DDD (degenerative disc disease) Rotator cuff arthropathy of right shoulder Neck pain Low back pain Single kidney Environmental allergies Asthma Surgical History Hx of nasal septoplasty History of tonsillectomy and adenoidectomy Hx of colonoscopy Hx of bilateral cataract extraction Social History Alcohol intake: current Alcohol intake frequency: holidays/special occasions only Review of Systems Const All systems reviewed & are unremarkable except as noted in HPI and below Physical Exam Vital Signs: Last Vital Signs Pulse 60 11/28/24 10:44 BP 180/50 H 11/28/24 10:44 Pulse Ox 97 11/28/24 10:44 Oxygen Delivery Method Room Air 11/28/24 10:44 BMI result Body Mass Index 19.6 Const General: comfortable and no acute distress Orientation/consciousness: patient oriented x3 HEENT Head: Yes normocephalic Mouth: Normal oral and palatal mucosa present Eyes EOM: EOMs intact bilaterally Neck Neck: Yes supple Resp Auscultation: clear to auscultation bilaterally Cardio Jugular venous distension: no JVD Rate: regular rate GI Palpation (GI): Soft to palpation Auscultation: normal bowel sounds General: Yes no CVA tenderness Back/Spine/Pelvis Back: no CVA tenderness Skin General skin exam: no rashes or lesions noted Neuro General: patient oriented x3 and moves all extremities Extrem General: Yes no pedal edema Office Meds epoetin darryl-epbx 10,000 unit/mL injection solution Performing Provider: Marquise Ashford MD Performing Location[place] [facility] [place] [facility] Administered by: Marquise Ashford MD on 11/28/24 10:54 Dose Route Admin Location Dispensed Lot Number Expiration Date [facility] Credit Relationship Manager 10,000 unit subcut LUE 1 mL [id number] 04/27/264909-4[address]-82 [employer] 10,000 unit subcut LUE 1 mL [id number] 01/25/26 [employer] Results Reviewed Nephrology Results: Hgb 8.9 g/dl (12.0-16.0) L 10/03/24 WBC 5.2 X10*3/uL (4.8-10.8) 10/03/24 Plt Count 123 X10*3/uL (160-400) L 10/03/24 Sodium 142 mmol/L (135-145) 10/03/24 Potassium 4.5 mmol/L (3.3-5.1) 10/03/24 Chloride 106 mmol/L (96-108) 10/03/24 Carbon Dioxide 27 mmol/L (22-29) 10/03/24 BUN 80 mg/dL (9-16) H 10/03/24 Creatinine 3.17 mg/dL (0.5-1.4) H 10/03/24 Calcium 9.4 mg/dL (8.4-10.2) 10/03/24 Phosphorus 4.6 mg/dL (2.7-4.5) H 08/31/24 PTH Intact 251.2 pg/mL (8.7-77.1) H 11/23/24 Assessment & Plan Assessment & Plan (1) Anemia in chronic kidney disease: Code(s): N18.9 - Chronic kidney disease, unspecified; D63.1 - Anemia in chronic kidney disease Category: Medical Qualifiers: Chronic kidney disease stage: stage 4 (GFR 15-29) Qualified Code(s): N18.4 - Chronic kidney disease, stage 4 (severe); D63.1 - Anemia in chronic kidney disease (2) Secondary hyperparathyroidism (of renal origin): Code(s): N25.81 - Secondary hyperparathyroidism of renal origin Category: Medical (3) Hypertension: Code(s): I10 - Essential (primary) hypertension Category: Medical Qualifiers: Hypertension type: secondary to other renal disorders Qualified Code(s): I15.1 - Hypertension secondary to other renal disorders (4) Gout: Code(s): M10.9 - Gout, unspecified Category: Medical Qualifiers: Gout site: foot Gout etiology: due to renal impairment Chronicity: acute Laterality: left Qualified Code(s): M10.372 - Gout due to renal impairment, left ankle and foot (5) CKD (chronic kidney disease) stage 4, GFR 15-29 ml/min: Code(s): N18.4 - Chronic kidney disease, stage 4 (severe) Category: Medical Plan Jacy has left atrophic kidney. She has progressive renal dysfunction or many years. Her serum creatinine had been fairly stable. Her last cr cl was close to 18 mls/mt. She does not have any uremic symptoms. Her blood pressure is at goal at home . She can continue current dose of amlodipine & allopurinol daily. She maintains good hydration. She avoids nonsteroidal anti-inflammatories. I discussed with her regarding options of renal replacement therapy. She is listed for transplantation in [facility] . I have given her [address] [facility] of [facility] in the office today. All her questions during this visit were answered. Follow-up appointment given Orders: Orders Complete Blood Count Auto Diff 2 Months D63.1 - Anemia in chronic kidney disease, I15.1 - Hypertension secondary to other renal disorders, M10.372 - Gout due to renal impairment, left ankle and foot, N18.4 - Chronic kidney disease, stage 4 (severe), N25.81 - Secondary hyperparathyroidism of renal origin Blood Urea Nitrogen 2 Months D63.1 - Anemia in chronic kidney disease, I15.1 - Hypertension secondary to other renal disorders, M10.372 - Gout due to renal impairment, left ankle and foot, N18.4 - Chronic kidney disease, stage 4 (severe), N25.81 - Secondary hyperparathyroidism of renal origin Electrolytes 2 Months D63.1 - Anemia in chronic kidney disease, I15.1 - Hypertension secondary to other renal disorders, M10.372 - Gout due to renal impairment, left ankle and foot, N18.4 - Chronic kidney disease, stage 4 (severe), N25.81 - Secondary hyperparathyroidism of renal origin Ferritin 2 Months D63.1 - Anemia in chronic kidney disease, N18.4 - Chronic kidney disease, stage 4 (severe) IRON PROFILE 2 Months D63.1 - Anemia in chronic kidney disease, N18.4 - Chronic kidney disease, stage 4 (severe) Blood Urea Nitrogen Today D63.1 - Anemia in chronic kidney disease, I15.1 - Hypertension secondary to other renal disorders, N18.4 - Chronic kidney disease, stage 4 (severe) Ferritin Today D63.1 - Anemia in chronic kidney disease, I15.1 - Hypertension secondary to other renal disorders, N18.4 - Chronic kidney disease, stage 4 (severe) Creatinine 2 Months D63.1 - Anemia in chronic kidney disease, I15.1 - Hypertension secondary to other renal disorders, M10.372 - Gout due to renal impairment, left ankle and foot, N18.4 - Chronic kidney disease, stage 4 (severe), N25.81 - Secondary hyperparathyroidism of renal origin Calcium 2 Months D63.1 - Anemia in chronic kidney disease, I15.1 - Hypertension secondary to other renal disorders, M10.372 - Gout due to renal impairment, left ankle and foot, N18.4 - Chronic kidney disease, stage 4 (severe), N25.81 - Secondary hyperparathyroidism of renal origin Phosphorus 2 Months D63.1 - Anemia in chronic kidney disease, I15.1 - Hypertension secondary to other renal disorders, M10.372 - Gout due to renal impairment, left ankle and foot, N18.4 - Chronic kidney disease, stage 4 (severe), N25.81 - Secondary hyperparathyroidism of renal origin Parathyroid Hormone Intact 2 Months D63.1 - Anemia in chronic kidney disease, I15.1 - Hypertension secondary to other renal disorders, M10.372 - Gout due to renal impairment, left ankle and foot, N18.4 - Chronic kidney disease, stage 4 (severe), N25.81 - Secondary hyperparathyroidism of renal origin Electrolytes Today D63.1 - Anemia in chronic kidney disease, I15.1 - Hypertension secondary to other renal disorders, N18.4 - Chronic kidney disease, stage 4 (severe) Creatinine Today D63.1 - Anemia in chronic kidney disease, I15.1 - Hypertension secondary to other renal disorders, N18.4 - Chronic kidney disease, stage 4 (severe) Calcium Today D63.1 - Anemia in chronic kidney disease, I15.1 - Hypertension secondary to other renal disorders, N18.4 - Chronic kidney disease, stage 4 (severe) IRON PROFILE Today D63.1 - Anemia in chronic kidney disease, I15.1 - Hypertension secondary to other renal disorders, N18.4 - Chronic kidney disease, stage 4 (severe) Complete Blood Count Auto Diff Today D63.1 - Anemia in chronic kidney disease, I15.1 - Hypertension secondary to other renal disorders, N18.4 - Chronic kidney disease, stage 4 (severe) AMB Epoetin Injection Practice Supplied Today D63.1 - Anemia in chronic kidney disease, N18.4 - Chronic kidney disease, stage 4 (severe) Coding Level of Care Code Est Pt Level 4 (22213) Diagnoses Anemia in stage 4 chronic kidney disease N18.4; D63.1 Chronic kidney disease stage: stage 4 (GFR 15-29) Secondary hyperparathyroidism (of renal origin) N25.81 Hypertension secondary to other renal disorders I15.1 Hypertension type: secondary to other renal disorders Acute gout due to renal impairment involving left foot M10.372 Gout site: foot Gout etiology: due to renal impairment Chronicity: acute Laterality: left CKD (chronic kidney disease) stage 4, GFR 15-29 ml/min N18.4
--- OUTSIDE RECORDS SUMMARY | 2024-11-28 11:27 | XMS_ITS ---
Author Organization Meño Edwards III, MD Address [address] [place] [address] Care Team Providers Care Facilities Mechanical Design Engineer Name Role Phone Meño Edwards Primary Care Provider [phone] REASON FOR VISIT Rx Refill Medications Medication SIG (Take, Route, Frequency, Duration) Notes Start Date End Date Status amLODIPine Besylate 5 MG 1 tablet Orally Once a day for 30 days Active Social History Sex Assigned At : Social History Observation Description Sex Assigned At Female Encounters Encounter Location Date Provider Diagnosis Meño Edwards III, MD [address] [place] [address] [address] [facility] [facility] [address] 08/31/2024 Meño Edwards Plan Of Treatment Medication Medication Name Sig Start Date Stop Date Notes amLODIPine Besylate 5 MG 1 tablet Orally Once a day for 30 days Next Appt Details Provider Name:Meño Edwards, 04/22/2025 09:30:00 AM, [address] [place] [address] [place], [address], Progress Notes * Jacy DOMINIQUE SDOB: [birth year] (69 yo F)Acc No.[id number]:08/31/2024 Patient:?Jacy DOMINIQUE :1955???Age:69 Y???Sex:Female Address:[address] [place] [address] * Refills? Refill amLODIPine Besylate Tablet, 5 MG, Orally, 30 Tablet, 1 tablet, Once a day, 30 days, Refills=11 * true * Date:? Generated for Timothy kennedy/Ngoc/Yogesh on:?11/28/2024 11:27 AM EDT
== END 2024-11-28 11:11 | disposition home or self-care (01) ==
LOC: HO.HKA 10:41
PROVIDERS: PCP Internal Medicine Medical Oncology; Visit Provider Internal Medicine Nephrology
DX: N18.4 Chronic kidney disease, stage 4 (severe) (principal); D63.1 Anemia in chronic kidney disease; I15.0 Renovascular hypertension; N25.81 Secondary hyperparathyroidism of renal origin; M10.372 Gout due to renal impairment, left ankle and foot
CPT/HCPCS: 99214

== ENCOUNTER → 2024-11-28 10:41 | Outpatient (BNVA) | payer MEDICARE, SELFPAY | PROVIDERS: PCP Internal Medicine Medical Oncology; Visit Provider Internal Medicine Nephrology | DX: Z13.89 Encounter for screening for other disorder (principal) ==

== ENCOUNTER 2024-11-28 11:14 | Outpatient (REF) | payer MEDICARE, SELFPAY ==
[2024-11-28 12:26] LABS: MANUAL DIFF FLAG NO
[2024-11-28 12:35] LABS: Basophils Percent Auto 0.2 % (0-2); Eosinophils Absolute Auto 0.1 X10*3/uL (0.0-0.4); Eosinophils Percent Auto 1.6 % (0-4); Hematocrit 28.5 % (37.0-47.0); Hemoglobin 8.9 g/dl (12.0-16.0); Imm Gran Abs Auto 0.01 X10*3/uL (0.00-0.03); Imm Gran Pct Auto 0.2 % (0.0-0.4); Lymphocytes Absolute Auto 0.8 X10*3/uL (1.2-4.9); Lymphocytes Percent Auto 18.2 % (20-40); Mean Corpuscular HGB Conc 31.2 g/dl (31.0-35.0); Mean Corpuscular Volume 99.3 fL (80.0-98.0); Mean Platelet Volume 11.5 fL (9.4-12.3); Monocytes Absolute Auto 0.4 X10*3/uL (0.1-1.2); Monocytes Percent Auto 9.9 % (2-11); Neutrophils Percent Auto 69.9 % (45-73); Platelet Count 130 X10*3/uL (160-400); Red Blood Count 2.87 X10*6/uL (4.20-5.50); Red Cell Distribution Width 14.3 % (11.0-16.0); White Blood Count 4.3 X10*3/uL (4.8-10.8)
[2024-11-28 12:56] LABS: Anion Gap 13 (12-20); Blood Urea Nitrogen 82 mg/dL (9-16); Calcium 9.1 mg/dL (8.4-10.2); Carbon Dioxide 25 mmol/L (22-29); Chloride 110 mmol/L (96-108); Estimated Glomerular Filt Rate 12; Iron 54 mcg/dL (30-160); Percent Iron Saturation 18 % (15-50); Sodium 143 mmol/L (135-145); Total Iron Binding Capacity 307 mcg/dL (228-428); Unsaturated Iron Binding 253 ug/dL
[2024-11-28 13:04] LABS: Ferritin 65 ng/mL (10-250)
== END 2024-11-28 11:15 | disposition home or self-care (01) ==
LOC: HO.10HDL 11:14
PROVIDERS: Visit Provider Internal Medicine Nephrology
DX: I15.1 Hypertension secondary to other renal disorders (principal); D63.1 Anemia in chronic kidney disease; N18.4 Chronic kidney disease, stage 4 (severe); N25.81 Secondary hyperparathyroidism of renal origin; M10.372 Gout due to renal impairment, left ankle and foot
CPT/HCPCS: 36415; 80051; 82310; 82565; 82728; 83540; 84520; 85025; 96372; 99212; Q5106

== ENCOUNTER 2025-01-21 11:23 | Outpatient (REF) | payer MEDICARE, SELFPAY ==
--- OUTSIDE RECORDS SUMMARY | 2023-10-06 10:30 | XMS_ITS ---
Author Organization [facility] Address [address] [facility] [place] [address] Care Team Providers Care Central Office Supervisor Name Role Phone Grace BAKER, Meño Primary Care Provider Unavailab London Braswell Unavailable [phone] Vin Quevedo Unavailable [phone] REASON FOR VISIT Seen Sooner Encounters Encounter Location Date Provider Diagnosis [facility] [address] [place] [phone] 10/06/2023 Vin Quevedo Plan Of Treatment No Information Progress Notes * TRIP Jacy SDOB: [birth year] (69 yo F)Acc No.[id number]:10/06/2023 Progress Note Patient: Jacy GARCIA Provider: Migdalia Quevedo DPM :1955 A ge:68 Y S ex:Female Date:10/06/2023 Address:[address] [id number] Pcp:Meño Edwards MD Subjective: * Chief Complaints: [...] 10/06/2023 Generated for Printi ng/Fatongg/eTransmitting on: 0 01/21/2025 12:39 PM EDT
--- OUTSIDE RECORDS SUMMARY | 2025-01-11 07:51 | XMS_ITS ---
Author Organization Meño Edwards III, MD Address [address] [place] [address] Care Team Providers Care Cigarette Filter Inspector Name Role Phone Meño Edwards Primary Care Provider Medications Medication SIG (Take, Route, Frequency, Duration) Notes Start Date End Date Status Amoxicillin-Pot Clavulanate 875-125 MG 1 tablet Orally every 12 hrs for 7 days 01/11/2025 01/18/2025 Active Social History Sex Assigned At : Social History Observation Description Sex Assigned At Female Encounters Encounter Location Date Provider Diagnosis Meño Edwards III, MD [address] [place] [address] [place] [address] 01/11/2025 Meño Edwards Plan Of Treatment Medication Medication Name Sig Start Date Stop Date Notes Amoxicillin-Pot Clavulanate 875-125 MG 1 tablet Orally every 12 hrs for 7 days 01/11/2025 01/18/2025 Next Appt Details Provider Name:Meño Edwards, 04/22/2025 09:30:00 AM, [address] [place] [address] [place] [place], [address], Progress Notes * Jacy DOMINIQUE SDOB: [birth year] (69 yo F)Acc No.[id number]:01/11/2025 Patient: Jacy GARCIA :1955 A ge:69 Y S ex:Female Address:[address] [place] [address] * Refills Start Amoxicillin-Pot Clavulanate Tablet, 875-125 MG, Orally, 14 Tablet, 1 tablet, every 12 hrs, 7 days, Refills=0 * true * Date: Generated for Timothy kennedy/Ngoc/Yogesh on: 0 01/21/2025 12:39 PM EDT
--- OUTSIDE RECORDS SUMMARY | 2025-01-21 12:39 | XMS_ITS | Clinical Summary ---
Author Organization [facility] Address [address] [place] [address] Care Team Providers Care Residential Housekeeper Name Role Phone Unavailable Primary Care Provider [...]
--- OUTSIDE RECORDS SUMMARY | 2025-01-21 12:40 | XMS_ITS | Data Portability ---
Author Organization [facility] Esthela ROYAL_Sarah_ Address [address] [place] [address] Care Team Providers Care Brine Plant Operator Name Role Phone KAR COVARRUBIAS Primary Care Provider [phone] Assessment No assessment recorded. Plan of Treatment Reminders Order Date Submit Date Provider Last Modified By Organization Details Last Modified Time Details Appointments None recorded. Lab rapid SARS CoV 2 Ag, QL IA, respiratory specimen 2023 024 In-Office Order, Internal Use Only DO Not Attach Compendium DO Not Attach Compendium, Do Not Delete/merge, [id number] 08:11:31 rapid flu (A+B) 2023 024 In-Office Order, Internal Use Only DO Not Attach Compendium DO Not Attach Compendium, Do Not Delete/merge, [id number] 08:11:32 SARS coronavirus RNA, qual, PCR, unspecified specimen 2020 021 [email or web address] In-Office Order, Internal Use Only DO Not Attach Compendium DO Not Attach Compendium, Do Not Delete/merge, [id number] 08:40:48 rapid SARS CoV 2 Ag, QL IA, respiratory specimen 2019 020 [email or web address] 5 In-Office Order, Internal Use Only DO Not Attach Compendium DO Not Attach Compendium, Do Not Delete/merge, [id number] 0 11:45:25 rapid SARS CoV 2 Ag, QL IA, respiratory specimen 2019 020 In-Office Order, Internal Use Only DO Not Attach Compendium DO Not Attach Compendium, Do Not Delete/merge, [id number] 0 15:44:46 Referral None recorded. Procedures cerumen removal (PROC) 2023 024 BISMARK In-Office Order, Internal Use Only DO Not Attach Compendium DO Not Attach Compendium, Do Not Delete/merge, [id number] 07:23:24 pulse oximetry (PROC) 2020 021 [email or web address] 5 In-Office Order, Internal Use Only DO Not Attach Compendium DO Not Attach Compendium, Do Not Delete/merge, [id number] 1 08:40:48 pulse oximetry (PROC) 2019 020 [email or web address] 5 In-Office Order, Internal Use Only DO Not Attach Compendium DO Not Attach Compendium, Do Not Delete/merge, [id number] 0 11:45:25 pulse oximetry (PROC) 2019 020 In-Office Order, Internal Use Only DO Not Attach Compendium DO Not Attach Compendium, Do Not Delete/merge, [id number] 0 16:31:34 Surgeries None recorded. Imaging None [...] By Organization Details Last Modified Time 09/22/2020 [id number] learning about healthy weight Not available 09/22/2020 08:40:48 body mass index: care instructions [email or web address] Not available 09/22/2020 08:40:48 eating healthy foods: care instructions [email or web address] Not available 09/22/2020 08:40:48 9 things to do i f you've been exposed to covid-19 [email or web address] Not available 09/22/2020 08:40:48 12/23/2023 [id number] Acute Sinusitis: Care Instructions Not available 12/23/2023 [...] RETROPHARYNGEAL ABSCESS), MENINGITIS, INTRACRANIAL HEMORRHAGE, AIRWAY COMPROMISE, MASTO IDITIS, or ISCHEMIC STROKE thus I consider the discharge disposition reasonable. The patient and I have discussed the diagnosis and risks, and we agree with discharging home with close follow-up with the understanding that symptoms and presentations can change. We also discussed returning to the Office immediately or going directly to the ED if new or acutely worsening symptoms occur. We have discussed the symptoms which are most concerning (e.g., changing or worsening symptoms, new numbness or weakness, vomiting, fever) that necessitate immediate presentation to the ED. Not available 12/23/2023 08:11:53 Reason for Referral None Reported. Results Created Date Observation Date Name Description Value Unit Range Abnormal Flag Note LastModifiedBy Organization Detail LastModifiedTime 09/23/1909/22/2020 pulse oxime try (PROC ) pulse oximetry 99% room air Not Available In-Office Order Internal Use Only DO Not Attach Compendium DO Not Attach Compendium, Do Not Delete/merge, [id number] 09/22/2020 08:20:07 05/27/20 20 05/27/2020 pulse oxime try (PROC ) pulse oximetry 99% room air Not Available In-Office Order Internal Use Only DO Not Attach Compendium DO Not Attach Compendium, Do Not Delete/merge, [id number] 05/27/2020 15:12:33 05/27/20 20 05/27/2020 rapid SARS CoV 2 Ag, QL IA, respi rator y speci men RAPID Nasal Covid negati ve Not Available In-Office Order Internal Use Only DO Not Attach Compendium DO Not Attach Compendium, Do Not Delete/merge, [id number] 05/27/2020 15:12:31 06/13/20 20 06/13/2020 rapid SARS CoV 2 Ag, QL IA, respi rator y speci men RAPID Nasal Covid negati ve Not Available In-Office Order Internal Use Only DO Not Attach Compendium DO Not Attach Compendium, Do Not Delete/merge, [id number] 06/13/2020 10:52:21 06/13/20 20 06/13/2020 pulse oxime try (PROC ) pulse oximetry 98% room air Not Available In-Office Order Internal Use Only DO Not Attach Compendium DO Not Attach Compendium, Do Not Delete/merge, [id number] 06/13/2020 10:52:23 09/23/19 21 09/22/2020 SARS coron aviru s RNA, qual, PCR, unspe cifie d speci men RAPID Bowles PCR COVID/Nasal negati ve Not Available In-Office Order Internal Use Only DO Not Attach Compendium DO Not Attach Compendium, Do Not Delete/merge, [id number] 09/22/2020 08:20:30 12/23/19 24 12/23/2023 rapid flu (A+B) Flu A negati ve Not Available In-Office Order Internal Use Only DO Not Attach Compendium DO Not Attach Compendium, Do Not Delete/merge, [id number] 12/23/2023 07:26:42 12/23/19 24 12/23/2023 rapid flu (A+B) Flu B negati ve Not Available In-Office Order Internal Use Only DO Not Attach Compendium DO Not Attach Compendium, Do Not Delete/merge, [id number] 12/23/2023 07:26:42 12/23/1912/23/2023 rapid SARS CoV 2 Ag, QL IA, respi rator y speci men RAPID Nasal Covid negati ve Not Available In-Office Order Internal Use Only DO Not Attach Compendium DO Not Attach Compendium, Do Not Delete/merge, [id number] 12/23/2023 07:26:23 Result Notes None recorded. Problems No Known Problems Procedures Surgical History Date Name Laterality Status Provider Name and Address Organization Details Recorded Time 02/28/20 19 [facility] [place] [facility] 12/23/2023 07:23:34 03/09/20 18 Date of Last Pap Smear [facility] [place] [facility] 12/23/2023 07:23:34 Cataract Surgery completed [facility] 12/23/2023 07:23:46 [facility] [place] [facility] 12/23/2023 07:23:46 LEEP completed Gregorio Wooden [place] - [facility] 12/23/2023 07:23:46 Septoplasty [facility] [place] [facility] 12/23/2023 07:23:46 Tonsillectomy [facility] [place] [facility] 12/23/2023 07:23:46 Adenoid Surgery completed [facility] 12/23/2023 07:23:46 Imaging Results [...] Updated DateTime 1 162.56 cm 17.2 kg/m2 51766.2 4 g 71 /min 99 % 99 % 97.9 [degF] [facility] 1 08:18:56 Date Recorded Body height Body mass index (BMI) Body weight Heart rate Body temperature Oxygen saturation Oxygen saturation in Arterial blood by Pulse oximetry Systolic And Diastolic Provider Name and Address Organization Details Last Updated DateTime 4 162.56 cm 17.7 kg/m2 31986.7 3 g 85 /min 97.5 [degF] 99 % 99 % 117/76 mm[Hg] Gregorio Stuart [place] [facility] 4 07:23:08 Date Recorded Body height Body mass index (BMI) Body weight Heart rate Body temperature Oxygen saturation Oxygen saturation in Arterial blood by Pulse oximetry Systolic And Diastolic Provider Name and Address Organization Details Last Updated DateTime 0 162.56 cm 15.8 kg/m2 62853.5 g 62 /min 97.2 [degF] 99 % 99 % 152/49 mm[Hg] Lorrie Lara [place] [facility] 0 16:30:34 Date Recorded Body height Body mass index (BMI) Body weight Heart rate Body temperature Oxygen saturation Oxygen saturation in Arterial blood by Pulse oximetry Provider Name and Address Organization Details Last Updated DateTime 0 162.56 cm 16 kg/m2 55517.0 9 g 64 /min 97.9 [degF] 98 % 98 % Nani baum [place] [facility] 0 10:51:05 Social History Question Answer Notes LastModified by Organizat ion Details LastModified Time Tobacco Smoking Status Never Smoker Gregorio Mann[place]adys [place], [place] - [facility] 12/23/2023 07:23:42 Do You Have An Advance Directive? No Information n ot available 12/23/2023 What Is Your Level Of Caffeine Consumption? None Information not available 12/23/2023 How Much Tobacco Do You Chew? None Information not available 12/23/2023 In The 14 Days Before Symptom Onset, Have You Had Close Contact With A Laboratory-confirm ed COVID-19 While That Case Was Ill? No Information n ot available 05/27/2020 If Patient Spent Time In [facility] - Does The Patient Live In [facility]? No Information not available 05/27/2020 In The 14 Days Before Symptom Onset, Have You Had Close Contact With A Person Who Is Under Investigation For COVID-19 While That Person Was Ill? No Information not available 05/27/2020 In The 14 Days Before Symptom Onset, Did The Patient Spend Time In [facility]? No Information not available 05/27/2020 Have You Been To An Area Known To Be High Risk For COVID-19? No Information not available 05/27/2020 What Type Of Diet Are You Following? REGULAR Information n ot available 12/23/2023 Which Illicit Or Recreational Drugs Have You Used? None Information not available 12/23/2023 Education Post Graduate Information not available 12/23/2023 Marital Status Informatio n not available 12/23/2023 What Was The Date Of Your Most Recent Tobacco Screening? 09/22/2020 [email or web address] Information not available 09/22/2020 How Much Tobacco Do You Smoke? No Information not available 12/23/2023 General Stress Level Medium Information not available 12/23/2023 Sex: Unknown Functional Status Question Answer Note LastModified by Organizat ion Details LastModified Time What is your level of alcohol consumption? Occasional Information not available 12/23/2023 What is your occupation? Retired Information not available 12/23/2023 What is your exercise level? Moderate Information [...] influenza, unspecified formulation 03/26/2020 completed [facility] 12/23/2023 07:23:50 Past Encounters Encounter ID Performer Location Encounter Start Date Encounter Closed Date Diagnosis/Indication Diagnosis SNOMED-CT Code Diagnosis ICD10 Code Diagnosis Note [id number] Omaira Valenzuela PA-C [address] [address] 05/27/2020 13:31:56 06/06/2020 14:49:42 Exposure to SARS-CoV-2 890566360 Z20.828 NEG RAPID [id number] Omaira Valenzuela PA-C [address] [address] 06/13/2020 10:15:38 06/13/2020 18:06:15 Suspected COVID-19 572824997 Z03.818 neg rapid covid [id number] Omaira Valenzuela PA-C [address] [address] 09/22/2020 08:09:28 09/22/2020 10:47:30 Exposure to SARS-CoV-2 680714759 Z20.828 You were swabbed for Covid-19 today [...] the facility can prepare for your arrival [id number] Apryl Rea PA-C [facility] [address] [place] [address] 12/23/2023 06:58:27 12/23/2023 13:22:50 Acute bacterial sinusitis 26315353 J01.90 - Rapid flu and COVIDWill initiate empiric antibiotic therapy as detailed below as this has been ongoing over a week now. Supportive and symptomati c management discussed. Impacted c erumen of bilateral ears 6620900467 458955 H61.23 She did undergo successful bilateral lavage, TMs were cleared of infection status post lavage Health Concerns Section Related Observation LastModified by Organization Detai ls LastModified Time None Recorded Concern Status LastModified by Organization Details LastModified Time None Recorded Advance Directives Directive N: Payers Insurance Date Sequence Insurance Name Policy Number Policy Almanza Covered Member ID Almanza Member ID Guarantor Name 01/01/2025 1 [place] Jacy Goldberg [id number] Jacy Goldberg 05/27/2020 1 *SELF PAY* Jung Goldberg 12/27/2023 2 [facility] [id number] Jayc Goldberg [id number] Jacy Goldberg OBGyn Episode No OBEpisode recorded.
--- OUTSIDE RECORDS SUMMARY | 2025-01-21 12:40 | XMS_ITS | Patient Health Record ---
Author Organization [facility] Address [address] [place] [address] Care Team Providers Care Die Maker Apprentice Name Role Phone Meño Edwards MD Primary Care Provider UnavailFady Monk Jr Unavailable [phone] Allergies Allergen (clinical drug ingredient) Drug/Non Drug [...] Problem Status W/U Status Risk Notes Problem 666123391 Colon cancer screening (V76.51) Active confirmed Problem 322788593 Colon cancer screening (Z12.11) Active confirmed Problem 306798445 Personal history of colonic polyps (Z86.010) Active confirmed Problem 826009549 Long-term curren t use of high risk medication other than anticoagulant (Z79.899) Active confirmed Plan Of Treatment Future Test Test Name Order Date COLONOSCOPY 04/01/2014 COLONOSCOPY 07/28/2020 Insurance Providers Payer Name Payer Address Payer Phone Subscriber Number Group Number Insured Name Patient Relationship to Insured Coverage Start Date Coverage End Date MEDICARE OF [place] [address] [place] [address] [id number] MENA DOMINIQUE Self - patient is the insured [employer] ATT[employer] CLAIMS [address] [place] [address] [id number] MENA DOMINQIUE Self - patient is the insured Medical [...]
--- OUTSIDE RECORDS SUMMARY | 2025-01-21 12:40 | XMS_ITS | Continuity of Care Document ---
Author Organization [facility] Address [address] [place] [address] Phone [phone] Social History Type Date Description Comments Sex Female Sex Unknown Medical Devices Description No Information Available Encounters Description No Information Available Assessments Description No Information Available Plan of Treatment No Information Available Functional Status Description No Information Available Mental Status Description No Information Available Referrals Description No Information Available
--- OUTSIDE RECORDS SUMMARY | 2025-01-21 12:40 | XMS_ITS | Clinical Summary ---
Author Organization [facility] Address [address] [place] [address] Phone Care Team Providers Care Railway Equipment Operator Name Role Phone Meño Edwards MD Primary Care Provider [phone] Allergies Active Allergy Reactions Criticality Noted Date [...] Thyroiditis 09/15/2021 09/15/2021 Underweight 09/15/2021 09/15/2021 Immunizations Immunization Administration Dates Next Due TD Preservative Free [...] Comments Breast Cancer Screening 1955 Pneumococcal Vaccine: 50+ Ye ars (1 of 2 - PCV) 01/31/1972 Colorectal Cancer Screening: Annual FOBT 2002 Colorectal Cancer Screening: Colonoscopy 2002 Colorectal Cancer Screening: Sigmoidoscopy 2002 Influenza Vaccine (#1) 2025 Hepatitis B Vaccine Aged Out No longe r eligible based on patient's age to complete this topic Insurance [facility] Medicare [facility] Medicare Care Teams Railway Equipment Operator Relationship Specialty Start Date End Date Meño Edwards MD [address] [place] [address] [address] [place], [place] PCP - General 07/07/20
[2025-01-21 13:12] LABS: MANUAL DIFF FLAG NO
[2025-01-21 13:26] LABS: Hematocrit 28.7 % (37.0-47.0); Hemoglobin 8.9 g/dl (12.0-16.0); Imm Gran Abs Auto 0.01 X10*3/uL (0.00-0.03); Imm Gran Pct Auto 0.2 % (0.0-0.4); Lymphocytes Absolute Auto 0.9 X10*3/uL (1.2-4.9); Mean Corpuscular HGB Conc 31.0 g/dl (31.0-35.0); Mean Corpuscular Hemoglobin 30.1 pg (27.0-33.0); Mean Corpuscular Volume 97.0 fL (80.0-98.0); NRBC Abs Auto 0.000 X10*3/uL (0.0-0.012); NRBC Pct Auto 0.0 /100WBC (0.0-0.2); Platelet Count 124 X10*3/uL (160-400); Red Blood Count 2.96 X10*6/uL (4.20-5.50); White Blood Count 5.1 X10*3/uL (4.8-10.8)
[2025-01-21 13:53] LABS: Anion Gap 11 (12-20); Blood Urea Nitrogen 77 mg/dL (9-16); Calcium 9.2 mg/dL (8.4-10.2); Carbon Dioxide 27 mmol/L (22-29); Chloride 107 mmol/L (96-108); Estimated Glomerular Filt Rate 10; Iron 74 mcg/dL (30-160); Percent Iron Saturation 25 % (15-50); Potassium 5.0 mmol/L (3.3-5.1); Sodium 140 mmol/L (135-145); Total Iron Binding Capacity 295 mcg/dL (228-428); Unsaturated Iron Binding 221 ug/dL
[2025-01-21 14:21] LABS: Ferritin 51 ng/mL (10-250)
[2025-01-21 14:35] LABS: Parathyroid Hormone Intact 188.2 pg/mL (8.7-77.1)
== END 2025-01-21 11:24 | disposition home or self-care (01) ==
LOC: HO.10HDL 11:23
PROVIDERS: Visit Provider Internal Medicine Nephrology
DX: N25.81 Secondary hyperparathyroidism of renal origin (principal); I15.1 Hypertension secondary to other renal disorders; N18.4 Chronic kidney disease, stage 4 (severe); D63.1 Anemia in chronic kidney disease; M10.372 Gout due to renal impairment, left ankle and foot
CPT/HCPCS: 36415; 80051; 82310; 82565; 82728; 83540; 83970; 84100; 84520; 85025

== ENCOUNTER 2025-01-25 11:25 | Outpatient (AMB) | payer MEDICARE, SELFPAY ==
--- OUTSIDE RECORDS SUMMARY | 2024-11-21 05:30 | XMS_ITS ---
Author Organization Meño Edwards III, MD Address [address] [place] [address] Care Team Providers Care Sealer Aircraft Name Role Phone Meño Edwards Primary Care [...] Provider Diagnosis Meño Edwards III, MD [address] [place] [address] [place] [address] 11/21/2024 Meño Edwards Underweight R63.6 ; Pancytopenia [...] She remains under the care of her admin secretary. She is asymptomatic at this time. 11/21/2024 [...] under the care of Dr. Ashford, her a&p mechanic. She is now on a kidney transplant [...] Exam Provider Name:Meño Edwards, 04/22/2025 09:30:00 AM, [address] [place] [address] , [facility] [address], [place], [address], Progress Notes * Jacy DOMINIQUE SDOB: [birth year] (69 yo F)Acc No.[id number]:11/21/2024 Progress Notes Patient: Jacy GARCIA Provider: Wan [...] today. She is going to see her a&p mechanic next week and will have blood work [...] w isdom teeth extraction tonsillectomy septum repair [id number] right cataract surgery 2012colonoscopy, adenomatous polyp 2004colonoscopy, [...] non-smoker S [facility] She has no children. * Medications: [...] She remains under the care of her admin secretary. She is asymptomatic at this time. 7 [...] under the care of Dr. Ashford, her a&p mechanic. She is now on a kidney transplant [...] 11/21/2024 Generated for Timothy kennedy/Ngoc/Angelaitting on: 0 01/25/2025 11:28 AM EDT History and Physical Notes * HPI [...]
--- OUTSIDE RECORDS SUMMARY | 2025-01-25 11:28 | XMS_ITS | Patient Health Record ---
Author Organization [facility] Address [address] [place] [address] Care Team Providers Care Revenue Tax Specialist Name Role Phone Meño Edwards MD Primary Care Provider London Quijano Unavailable [phone] Allergies Allergen (clinical drug ingredient) Drug/Non Drug Allergy documented on EMR Reaction Allergy Type Onset Date Status Grass Mix Pollens Allergen Ext Unknown Drug Allergy Active Mold Unknown Allergy Active Reason For Referral No Information Medications Medication SIG (Take, Route, Frequency, Duration) Notes Start Date End Date Status Atorvastatin Calcium 10 MG 1 tablet Orally Once a day; Duration: 30 day(s) Active Pulmicort Flexhaler 180 MCG/ACT 1 puff Inhalation Once a day Active amLODIPine Besylate 1 MG/ML 5 mL Orally Once a day; Duration: 30 day(s) Not-Taking Albuterol PRN Active amLODIPine Besylate 5 MG 1 tablet Orally Once a day; Duration: 30 day(s) once a day Active Colcrys 0.6 MG 1 tablet Orally once a day; Duration: 10 days 09/09/2023 Active Social History Tobacco [...] Problem Status W/U Status Risk Notes Problem Information temporarily unavailable Lead-induced gout, 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 Problem Information temporarily unavailable Toxic effect of lead and its compounds, accidental (unintentional) , initial encounter (T56.0X1A) Active confirmed Problem Information temporarily unavailable Lead-induced gout, 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 Plan Of Treatment Pending Test Test Name Order Date *Uric Acid, Serum 09/09/2023 *Sedimentation Rate-Westergren X ray : Foot, left 3V 01/27/2022 Insurance Providers Payer Name Payer Address Payer Phone Subscriber Number Group Number Insured Name Patient Relationship to Insured Coverage Start Date Coverage End Date Medicare National Govt [employer] [facility] [address] [place] [address] [id number] Jacy Goldberg Self - patient is the insured [employer] [address] [place] [address] [phone] [id number] Jacy Goldberg Self - patient is the insured Medical (General) History Medical History History ICD Code asthma Back pain CAD (Cholesterol) Cataracts Measles Mumps Kidney disease chronic sinusitis Warts Surgical History Surgery Date(Month/Year) tonsillectomy and adenoidectomy wisdom teeth extraction 1971 cataract surgery 10/28/2015 deviated septum repair 1976
--- OUTSIDE RECORDS SUMMARY | 2025-01-25 11:28 | XMS_ITS | Continuity of Care Document ---
Author Organization [facility] Address [address] [place] [address] Phone [phone] Social History Type Date Description Comments Sex Female Sex Unknown Medical Devices Description No Information Available Encounters Description No Information Available Assessments Description No Information Available Plan of Treatment No Information Available Functional Status Description No Information Available Mental Status Description No Information Available Referrals Description No Information Available
--- OUTSIDE RECORDS SUMMARY | 2025-01-25 11:29 | XMS_ITS | Patient Health Record ---
Author Organization [facility] Address [address] [place] [address] Care Team Providers Care Brand Designer Name Role Phone Meño Edwards MD Primary [...] Problem Status W/U Status Risk Notes Problem [id number] Colon cancer screening (V76.51) Active confirmed Problem 790070625 Colon cancer screening (Z12.11) Active confirmed Problem 518304950 Personal history of colonic polyps (Z86.010) Active confirmed Problem [id number] Long-term curren t use of high risk medication other than anticoagulant (Z79.899) Active confirmed Plan Of Treatment Future Test Test Name Order Date COLONOSCOPY 04/01/2014 COLONOSCOPY 07/28/2020 Insurance Providers Payer Name Payer Address Payer Phone Subscriber Number Group Number Insured Name Patient Relationship to Insured Coverage Start Date Coverage End Date MEDICARE OF [place] [address] [place] [address] [id number] MENA DOMINIQUE Self - patient is the insured [employer] CLAIMS [address] [place] [address] [id number] MENA DOMINIQUE Self - patient is the [...]
--- OUTSIDE RECORDS SUMMARY | 2025-01-25 11:29 | XMS_ITS | Clinical Summary ---
Author Organization [facility] Address [address] [place] [address] Care Team Providers Care Field Pipelines Supervisor Name Role Phone Unavailable Primary Care Provider [...]
--- OUTSIDE RECORDS SUMMARY | 2025-01-25 11:29 | XMS_ITS | Clinical Summary ---
Author Organization [facility] Address [address] [place] [address] Phone Care Team Providers Care Exhibit Builder Name Role Phone Meño Edwards MD Primary Care Provider [phone] Allergies Active Allergy Reactions Criticality Noted Date [...] patient's age to complete this topic Insurance [facility] Medicare [facility] Medicare Care Teams Exhibit Builder Relationship Specialty Start Date End Date Meño Edwards MD [address] [place] [address] [address] [place], [place] PCP - General 07/07/20
--- NOTE | 2025-01-25 11:43 | HO.NEPHOV ---
Vital Signs 01/25/25 11:44 Height 5 ft 4 in Weight 110 lb 6 oz BMI 18.9 BP 182/60 H Blood Pressure Location Rt brachial Position Sitting Pulse 55 Pulse Source Pulse Oximeter Pulse Oximetry (%) 96 Oxygen Delivery Method Room Air Intake Visit Reasons: 2 MO FU/ Conf Compensation And Benefits Manager Required: No Accompanied by: Self / Same As Patient Allergies No Known Allergies Allergy (Verified 01/25/25 11:44) HPI Comments Details: Jacy was seen in follow-up of her hypertension and advanced chronic kidney disease. She has not had any flare up of gout on her left foot. She is tolerating Allopurinol . She denies any uremic symptoms. She has not taken any nonsteroidal anti-inflammatories. Her blood pressure control is optimal. Her Amlodipine has been cut back due to edema. She maintains good hydration. She denies chest pain, shortness of breath, paroxysmal nocturnal dyspnea, orthopnea or urinary symptoms. Her last 24 hour urine collection showed a GFR close to 18 mls/minute. Her serum creatinine has gone up marginally. She had hyperkalemia and got treatment for it. She is listed for renal transplant in [facility]. [facility] Medical History (Updated 06/02/24 @ 15:41 by Marquise Ashford MD) Degenerative arthritis of cervical spine Osteoarthritis Hypothyroidism Anemia Thrombocytopenia Chronic kidney disease DDD (degenerative disc disease) Rotator cuff arthropathy of right shoulder Neck pain Low back pain Single kidney Environmental allergies Asthma Surgical History Hx of nasal septoplasty History of tonsillectomy and adenoidectomy Hx of colonoscopy Hx of bilateral cataract extraction Social History Alcohol intake: current Alcohol intake frequency: holidays/special occasions only Review of Systems Const All systems reviewed & are unremarkable except as noted in HPI and below Physical Exam Vital Signs: Last Vital Signs Pulse 55 01/25/25 11:44 BP 182/60 H 01/25/25 11:44 Pulse Ox 96 01/25/25 11:44 Oxygen Delivery Method Room Air 01/25/25 11:44 BMI result Body Mass Index 18.9 Const General: comfortable and no acute distress Orientation/consciousness: patient oriented x3 HEENT Head: Yes normocephalic Mouth: Normal oral and palatal mucosa present Eyes EOM: EOMs intact bilaterally Neck Neck: Yes supple Resp Auscultation: clear to auscultation bilaterally Cardio Jugular venous distension: no JVD Rate: regular rate GI Palpation (GI): Soft to palpation Auscultation: normal bowel sounds General: Yes no CVA tenderness Back/Spine/Pelvis Back: no CVA tenderness Skin General skin exam: no rashes or lesions noted Neuro General: patient oriented x3 and moves all extremities Extrem General: Yes no pedal edema Office Meds epoetin darryl-epbx 10,000 unit/mL injection solution Performing Provider: Marquise Ashford MD [facility] Administered by: Marquise Ashford MD on 01/25/25 11:53 Dose Route Admin Location Dispensed Lot Number Expiration Date [facility] Nitroglycerin Distributor 20,000 unit subcut LUE 2 mL [id number] 07/28/26 4581-0865-37 [employer] Total Dispensed Waste 2 mL 0 % Results Reviewed Nephrology Results: Hgb, (12.0-16.0) 8.9 g/dl L 01/21/25 WBC, (4.8-10.8) 5.1 X10*3/uL 01/21/25 Plt Count, (160-400) 124 X10*3/uL L 01/21/25 Sodium, (135-145) 140 mmol/L 01/21/25 Potassium, (3.3-5.1) 5.0 mmol/L 01/21/25 Chloride, (96-108) 107 mmol/L 01/21/25 Carbon Dioxide, (22-29) 27 mmol/L 01/21/25 BUN, (9-16) 77 mg/dL H 01/21/25 Creatinine, (0.5-1.4) 4.18 mg/dL H* 01/21/25 Calcium, (8.4-10.2) 9.2 mg/dL 01/21/25 Phosphorus, (2.7-4.5) 4.7 mg/dL H 01/21/25 PTH Intact, (8.7-77.1) 188.2 pg/mL H 01/21/25 Assessment & Plan Assessment & Plan (1) Hypertension: Code(s): I10 - Essential (primary) hypertension Category: Medical Qualifiers: Hypertension type: secondary to other renal disorders Qualified Code(s): I15.1 - Hypertension secondary to other renal disorders (2) Secondary hyperparathyroidism (of renal origin): Code(s): N25.81 - Secondary hyperparathyroidism of renal origin Category: Medical (3) CKD (chronic kidney disease) stage 4, GFR 15-29 ml/min: Code(s): N18.4 - Chronic kidney disease, stage 4 (severe) Category: Medical (4) Anemia in chronic kidney disease: Code(s): N18.9 - Chronic kidney disease, unspecified; D63.1 - Anemia in chronic kidney disease Category: Medical Qualifiers: Chronic kidney disease stage: stage 4 (GFR 15-29) Qualified Code(s): N18.4 - Chronic kidney disease, stage 4 (severe); D63.1 - Anemia in chronic kidney disease (5) Gout: Code(s): M10.9 - Gout, unspecified Category: Medical Qualifiers: Chronicity: acute Gout etiology: due to renal impairment Gout site: foot Laterality: left Qualified Code(s): M10.372 - Gout due to renal impairment, left ankle and foot Tiffany Louie has left atrophic kidney. She has progressive renal dysfunction or many years. Her serum creatinine is marginally worse. Her last cr cl was close to 18 mls/mt but probably worse now. She does not have any uremic symptoms. Her blood pressure is at goal at home . She can continue current dose of amlodipine & allopurinol daily. She maintains good hydration. She avoids nonsteroidal anti-inflammatories. I discussed with her regarding options of renal replacement therapy. She is listed for transplantation in [facility] . I have given her [address] U of Procrit in the office today. All her questions during this visit were answered. Follow-up appointment given Orders: Orders AMB Epoetin Injection Practice Supplied Today D63.1 - Anemia in chronic kidney disease, N18.4 - Chronic kidney disease, stage 4 (severe) Complete Blood Count Auto Diff 1 Month D63.1 - Anemia in chronic kidney disease, I15.1 - Hypertension secondary to other renal disorders, M10.372 - Gout due to renal impairment, left ankle and foot, N18.4 - Chronic kidney disease, stage 4 (severe), N25.81 - Secondary hyperparathyroidism of renal origin Calcium 1 Month D63.1 - Anemia in chronic kidney disease, I15.1 - Hypertension secondary to other renal disorders, M10.372 - Gout due to renal impairment, left ankle and foot, N18.4 - Chronic kidney disease, stage 4 (severe), N25.81 - Secondary hyperparathyroidism of renal origin Electrolytes 1 Month D63.1 - Anemia in chronic kidney disease, I15.1 - Hypertension secondary to other renal disorders, M10.372 - Gout due to renal impairment, left ankle and foot, N18.4 - Chronic kidney disease, stage 4 (severe), N25.81 - Secondary hyperparathyroidism of renal origin Blood Urea Nitrogen 1 Month D63.1 - Anemia in chronic kidney disease, I15.1 - Hypertension secondary to other renal disorders, M10.372 - Gout due to renal impairment, left ankle and foot, N18.4 - Chronic kidney disease, stage 4 (severe), N25.81 - Secondary hyperparathyroidism of renal origin Creatinine 1 Month D63.1 - Anemia in chronic kidney disease, I15.1 - Hypertension secondary to other renal disorders, M10.372 - Gout due to renal impairment, left ankle and foot, N18.4 - Chronic kidney disease, stage 4 (severe), N25.81 - Secondary hyperparathyroidism of renal origin Coding Level of Care Code Est Pt Level 4 (31744) Diagnoses Hypertension secondary to other renal disorders I15.1 Hypertension type: secondary to other renal disorders Secondary hyperparathyroidism (of renal origin) N25.81 CKD (chronic kidney disease) stage 4, GFR 15-29 ml/min N18.4 Anemia in stage 4 chronic kidney disease N18.4; D63.1 Chronic kidney disease stage: stage 4 (GFR 15-29) Acute gout due to renal impairment involving left foot M10.372 Chronicity: acute Gout etiology: due to renal impairment Gout site: foot Laterality: left
[2025-01-25 11:44] VITALS: BP 182/60; PULSE 55; O2SAT 96; BMI 18.9
== END 2025-01-25 12:03 | disposition home or self-care (01) ==
PROVIDERS: PCP Internal Medicine Medical Oncology; Visit Provider Internal Medicine Nephrology
DX: I15.1 Hypertension secondary to other renal disorders (principal); N25.81 Secondary hyperparathyroidism of renal origin; N18.4 Chronic kidney disease, stage 4 (severe); D63.1 Anemia in chronic kidney disease; M10.372 Gout due to renal impairment, left ankle and foot
CPT/HCPCS: 99214

== ENCOUNTER → 2025-01-25 11:25 | Outpatient (BNVA) | payer MEDICARE, SELFPAY | PROVIDERS: PCP Internal Medicine Medical Oncology; Visit Provider Internal Medicine Nephrology | DX: I15.1 Hypertension secondary to other renal disorders (principal); N18.4 Chronic kidney disease, stage 4 (severe); N25.81 Secondary hyperparathyroidism of renal origin; D63.1 Anemia in chronic kidney disease; M10.372 Gout due to renal impairment, left ankle and foot; Q60.0 Renal agenesis, unilateral | CPT/HCPCS: 96372; 99212; Q5106 ==

== ENCOUNTER 2025-02-26 13:05 | Outpatient (REF) | payer MEDICARE, SELFPAY ==
--- OUTSIDE RECORDS SUMMARY | 2025-02-20 23:59 | XMS_ITS | Continuity of Care Document ---
Author Organization [facility] Address [address] [place] [address]- Care Team Providers Care Beam Dyer Recessed Vat Name Role Phone Meño Edwards MD Primary Care [facility]ician [id number] [address] [place] [address]- Encounter Type: Triage Allergies, Adverse Reactions, Alerts No Known Allergies Immunizations Given and Recorded Vaccine Date Status Refusal Reason Measles/Mumps/Rubella Virus Vaccine 1 12/12/24 Giv en Measles/Mumps/Rubella Virus Vaccine 2 10/31/24 Giv en hepatitis B adult vaccine 10/31/24 Given hepatitis B adult vaccine 09/21/24 Given 1Result Comment: [12/12/2024] sterile diluent lot [id number] exp 09/12/26 2Result Comment: [10/31/2024] Sterile diluent lot [id number] exp 09/12/26 Medications Albuterol (Eqv-ProAir HFA) 90 mcg/inh inhalation aerosol INHALE 2 PUFFS BY MOUTH EVERY 4 HOURS NEEDED Start Date: 09/12/24 Status: Ordered Medication Dispense Status: Completed Total Allowed Fills: 1 Fills Dispensed: 0 allopurinol 100 mg oral tablet TAKE 2 TABLETS BY MOUTH DAILY Start Date: 09/12/24 Status: Ordered Medication Dispense Status: Completed Total Allowed Fills: 1 Fills Dispensed: 0 amLODIPine 5 mg oral tablet TAKE 1 TABLET BY MOUTH EVERY DAY Start Date: 09/12/24 Status: Ordered Medication Dispense Status: Completed Total Allowed Fills: 1 Fills Dispensed: 0 atorvastatin 10 mg oral tablet TAKE 1 TABLET BY MOUTH EVERY DAY Start Date: 09/12/24 Status: Ordered Medication Dispense Status: Completed Total Allowed Fills: 1 Fills Dispensed: 0 Calcium with Magnesium, Vitamins D and K oral tablet 1 tablet, By Mouth, 2 times a day, # 360 tablet, 0 Refills, Maintenance, 09/12/24 11:18:00 AM EDT, Tablet, Partial fill upon patient request if the prescription is for a schedule II opioid drug. Start Date: 09/12/24 Status: Ordered Medication Dispense Status: Completed Quantity: 360.0 Unit: tablet Total Allowed Fills: 1 Fills Dispensed: 0 carvedilol 6.25 mg oral tablet TAKE 1 TABLET BY MOUTH TWICE DAILY Start Date: 09/12/24 Status: Ordered Medication Dispense Status: Completed Total Allowed Fills: 1 Fills Dispensed: 0 Kalexate oral and rectal powder MIX AND DRINK 30GRAMS BY MOUTH ONCE A WEEK Start Date: 09/12/24 Status: Ordered Medication Dispense Status: Completed Total Allowed Fills: 1 Fills Dispensed: 0 omeprazole 20 mg oral delayed release tablet 1 tablet = 20 mg, By Mouth, Daily, # 30 tablet, 0 Refills, Maintenance, 09/12/24 11:18:00 AM EDT, CRTablet, Partial fill upon patient request if the prescription is for a schedule II opioid drug. Start Date: 09/12/24 Status: Ordered Medication Dispense Status: Completed Quantity: 30.0 Unit: tablet Total Allowed Fills: 1 Fills Dispensed: 0 Pulmicort Flexhaler 180 mcg INHALE 2 PUFFS BY MOUTH TWICE DAILY Start Date: 09/12/24 Status: Ordered Medication Dispense Status: Completed Total Allowed Fills: 1 Fills Dispensed: 0 triamcinolone 0.1% topical cream 1 application, Topically, 2 times a day, # 80 Gm, 0 Refills, Maintenance, 09/12/24 11:15:00 AM EDT, Cream, Partial fill upon patient request if the prescription is for a schedule II opioid drug. Start Date: 09/12/24 Status: Ordered Medication Dispense Status: Completed Quantity: 80.0 Unit: g Total Allowed Fills: 1 Fills Dispensed: 0 Patient Care team information Care Team Personnel Name: Meño Edwards MD Position: S Physician - Oncology Member Role: PCP Address: [address] [place] [address] [address] [place] [address]- Telecom: Care Team Related Persons Name: RIDGE DOMINIQUE Insurance Providers Guarantor name: MENA BEVERLEYKELLI [facility] Plan Information #: 1 Payer: [employer] Payer Identifier: NA Member Number: [id number] Group Number: NA Subscriber Identifier: NA Relationship to Subscriber: self Coverage Type: MISCELLANEOUS/OTHER Coverage Verification Date: Telecom: NA Address:
--- OUTSIDE RECORDS SUMMARY | 2025-02-20 23:59 | XMS_ITS | Continuity of Care Document ---
Author Organization [facility] Address [address] [place] [address]- Care Team Providers Care Brick Baker Name Role Phone Meño Edwards MD Primary Care Physician [phone] [id number] - 02/20/25 [facility] [address] [place] [address]- Encounter Type: Triage Allergies, Adverse Reactions, Alerts No Known Allergies Immunizations Given and Recorded Vaccine Date Status Refusal Reason Measles/Mumps/Rubella Virus Vaccine 1 12/12/24 Giv en Measles/Mumps/Rubella Virus Vaccine 2 10/31/24 Giv en hepatitis B adult vaccine 10/31/24 Given hepatitis B adult vaccine 09/21/24 Given 1Result Comment: [12/12/2024] sterile diluent lot [id number] exp 09/12/26 2Result Comment: [10/31/2024] Sterile diluent lot [id number] exp 09/12/26 Medications Albuterol (Eqv-ProAir HFA) 90 [...] Physician - Oncology Member Role: PCP Address: [address] [place] [address] [address] [place] [address]- Telecom: Care Team Related Persons Name: RIDGE DOMINIQUE Insurance Providers Guarantor name: MEAN BEVERLEYKELLI [facility] Plan Information #: 1 Payer: [employer] Payer Identifier: NA Member Number: [id number] Group Number: NA Subscriber Identifier: NA Relationship to Subscriber: self Coverage Type: MISCELLANEOUS/OTHER Coverage Verification Date: Telecom: NA Address:
[2025-02-26 13:16] LABS: MANUAL DIFF FLAG NO
[2025-02-26 13:47] LABS: Hematocrit 29.4 % (37.0-47.0); Hemoglobin 9.4 g/dl (12.0-16.0); Imm Gran Abs Auto 0.03 X10*3/uL (0.00-0.03); Imm Gran Pct Auto 0.6 % (0.0-0.4); Lymphocytes Absolute Auto 0.9 X10*3/uL (1.2-4.9); Mean Corpuscular HGB Conc 32.0 g/dl (31.0-35.0); Mean Corpuscular Hemoglobin 30.8 pg (27.0-33.0); Mean Corpuscular Volume 96.4 fL (80.0-98.0); NRBC Abs Auto 0.000 X10*3/uL (0.0-0.012); NRBC Pct Auto 0.0 /100WBC (0.0-0.2); Platelet Count 132 X10*3/uL (160-400); Red Blood Count 3.05 X10*6/uL (4.20-5.50); White Blood Count 5.4 X10*3/uL (4.8-10.8)
--- OUTSIDE RECORDS SUMMARY | 2025-02-26 14:27 | XMS_ITS | Continuity of Care Document ---
Author Organization [facility] Address [address] [place] [address] Phone [phone] Social History Type Date Description Comments Sex Female Sex Unknown Medical Devices Description No Information Available Encounters Description No Information Available Assessments Description No Information Available Plan of Treatment No Information Available Functional Status Description No Information Available Mental Status Description No Information Available Referrals Description No Information Available
--- OUTSIDE RECORDS SUMMARY | 2025-02-26 14:27 | XMS_ITS | Clinical Summary ---
Author Organization [facility] Address [address] [place] [address] Care Team Providers Care General Lot Attendant Name Role Phone Unavailable Primary Care Provider [...]
--- OUTSIDE RECORDS SUMMARY | 2025-02-26 14:27 | XMS_ITS | Clinical Summary ---
Author Organization [facility] Address [address] [place] [address] Phone Care Team Providers Care Quality Assurance Inspector Name Role Phone Meño Edwards MD Primary [...] patient's age to complete this topic Insurance [facility] Medicare [facility] Medicare Care Teams Quality Assurance Inspector Relationship Specialty Start Date End Date Meño Edwards MD [address] [place] [address] [address] [place], [place] PCP - General 07/07/20
[2025-02-26 14:45] LABS: Anion Gap 14 (12-20); Blood Urea Nitrogen 70 mg/dL (9-16); Calcium 9.1 mg/dL (8.4-10.2); Carbon Dioxide 26 mmol/L (22-29); Chloride 103 mmol/L (96-108); Estimated Glomerular Filt Rate 12; Potassium 5.4 mmol/L (3.3-5.1); Sodium 138 mmol/L (135-145)
== END 2025-02-26 13:06 | disposition home or self-care (01) ==
LOC: HO.LAB 13:05
PROVIDERS: PCP Internal Medicine Medical Oncology; Visit Provider Internal Medicine Nephrology
DX: I15.1 Hypertension secondary to other renal disorders (principal); N25.81 Secondary hyperparathyroidism of renal origin; N18.4 Chronic kidney disease, stage 4 (severe); D63.1 Anemia in chronic kidney disease; M10.372 Gout due to renal impairment, left ankle and foot; I51.1 Rupture of chordae tendineae, not elsewhere classified
CPT/HCPCS: 36415; 80051; 82310; 82565; 84520; 85025

== ENCOUNTER 2025-03-01 11:02 | Outpatient (AMB) | payer MEDICARE, SELFPAY ==
--- OUTSIDE RECORDS SUMMARY | 2023-10-06 10:30 | XMS_ITS ---
Author Organization [facility] Address [address] [facility] [place] [address] Care Team Providers Care Mud Analysis Supervisor Name Role Phone Grace BAKER, Meño Primary Care Provider Unavailab London Braswell Unavailable [phone] Vin Quevedo Unavailable [phone] REASON FOR VISIT Seen Sooner Encounters Encounter Location Date Provider Diagnosis [facility] [address] [place] [phone] 10/06/2023 Vin Quevedo Plan Of Treatment No Information Progress Notes * Jacy DOMINIQUE SDOB: [birth year] (70 yo F)Acc No.[id number]:10/06/2023 Progress Note Patient: Jacy GARCIA Provider: Migdalia Quevedo DPM :1955 A ge:68 Y S ex:Female Date:10/06/2023 Address:[address] [id number] Pcp:Meño Edwards MD Subjective: * Chief Complaints: * 1 . Seen Sooner. * Medical History: Objective: * Vitals: Assessment: Plan: * Treatment: * Images: * The named appointment provid er may or may not be the originator of this progress note, and it is not deemed complete until electronically signed by the appointment provider. Sign off status: Pending * Provider: Migdalia Quevedo DPM Date: 10/06/2023 Generated for Printi ng/Fatongg/eTransmitting on: 0 03/01/2025 12:06 PM EDT
--- OUTSIDE RECORDS SUMMARY | 2024-08-23 05:30 | XMS_ITS ---
Author Organization Meño Edwards III, MD Address [address] [place] [address] Care Team Providers Care Food Safety Field Specialist Name Role Phone Meño Edwards Primary Care [...] 25 Blood pressure systolic 140 mm Hg 08/23/19 25 Blood pressure diastolic 56 mm Hg 025 Heart Rate 62 /min 08/23/2024 Height 65 in 08/23/2024 Weight 113 lbs 08/23/2024 BMI 18.8 kg/m2 08/23/2024 Encounters Encounter Location Date Provider Diagnosis Meño Edwards III, MD [address] [place] [address] [address], [place] [address] 08/23/2024 Meño Edwards Underweight R63.6 ; CKD [...] list for a kidney transplant by her computer information science professor. 08/23/2024 Mild intermittent asthma without complication (ICD-10 - J45.20) She has had no difficulty with asthma lately. She has an inhaler which she has not been using. 08/23/2024 Thrombocytopenia (ICD-10 - D69.6) She has had no bleeding and is avoiding aspirin. 08/23/2024 Thyroiditis (ICD-10 - E06.9) This is not an active problem. She remains under the care of her extractions technician. She is asymptomatic at this time. 08/23/2024 [...] months, Reason: OV, Routine follow-up Provider Name:Meño Edwards, 04/22/2025 09:30:00 AM, [address] [place] [address] DR, [place] [address], [place], [address], Progress Notes * Jacy DOMINIQUE SDOB: [birth year] (69 yo F)Acc No.[id number]:08/23/2024 Progress Notes Patient: Jacy GARCIA Provider: Wan Edwards MD :1955 A ge:69 Y S ex:Female Date:08/23/2024 Address:[address] [place] [place] [phone] Subjective: * Chief Complaints: * U nderweightPancytopeniaAsthmaCKDGoutMacular degenerationOn kidney transplant list * HPI: C OVID-19 Screening: moving to [place] dont know when. Questions H ave you [...] her new glasses. She has seen an pain management nurse twice this year for this issue. The [...] w isdom teeth extraction tonsillectomy septum repair [id number] right cataract surgery 2012colonoscopy, adenomatous polyp 2004colonoscopy, [...] T obacco Use: T obacco Use/Smoking P jacquelin is a n onsmoker A dditional Findings: Tobacco Non-User A ggressive non-smoker S he is single and comes fom [facility]. She has no children. * Medications: T [...] Filt Rate 13 15 14 * Lab:Comprehensive [place]. Pane l Fast * Collection Date 08/21/2024 [...] list for a kidney transplant by her computer information science professor. 2 . U nderweight - R63.6 N [...] She remains under the care of her extractions technician. She is asymptomatic at this time. 6 [...] MD Date: 0 08/23/2024 Generated for Timothy kennedy/Ngoc/Angelaitting on: 0 03/01/2025 12:06 PM EDT History and Physical Notes * [...]
--- OUTSIDE RECORDS SUMMARY | 2024-08-31 08:11 | XMS_ITS ---
Author Organization Meño Edwards III, MD Address [address] [place] [address] Care Team Providers Care Volcanologist Name Role Phone Meño Edwards Primary Care Provider REASON FOR VISIT Rx Refill Medications Medication SIG (Take, Route, Frequency, Duration) Notes Start Date End Date Status amLODIPine Besylate 5 MG 1 tablet Orally Once a day for 30 days Active Social History Sex Assigned At : Social History Observation Description Sex Assigned At Female Encounters Encounter Location Date Provider Diagnosis Meño Edwards III, MD [address] [place] [address] [place] [address] 08/31/2024 Meño Edwards Plan Of Treatment Medication Medication Name Sig Start Date Stop Date Notes amLODIPine Besylate 5 MG 1 tablet Orally Once a day for 30 days Next Appt Details Provider Name:Meño Edwards, 04/22/2025 09:30:00 AM, [address] [place] [address] [place], [address], Progress Notes * Jacy DOMINIQUE SDOB: [birth year] (69 yo F)Acc No.[id number]:08/31/2024 Patient: Jacy GARCIA :1955 A ge:69 Y S ex:Female Address:[address] [place] [address] * Refills Refill amLODIPine Besylate Tablet, 5 MG, Orally, 30 Tablet, 1 tablet, Once a day, 30 days, Refills=11 * true * Date: Generated for Timothy kennedy/Ngoc/Angelaitting on: 0 03/01/2025 12:05 PM EDT
--- OUTSIDE RECORDS SUMMARY | 2024-11-21 05:30 | XMS_ITS ---
Author Organization Meño Edwards III, MD Address [address] [place] [address] Care Team Providers Care Senior Db2 Systems Programmer Name Role Phone Meño Edwards Primary Care Provider [phone] Allergies Allergen (clinical drug ingredient) Drug/Non Drug [...] Provider Diagnosis Meño Edwards III, MD [address] [place] [address] [place] [address] 11/21/2024 Meño Edwards Underweight R63.6 ; Pancytopenia [...] She remains under the care of her defence force senior officer. She is asymptomatic at this time. 11/21/2024 [...] under the care of Dr. Ashford, her organ pipe maker metal. She is now on a kidney transplant [...] Scheduled, Danielle son: Annual Exam Provider Name:Meño Edwards, 04/22/2025 09:30:00 AM, [address] [place] [address] , [facility] [address], [place], [address], Progress Notes * Jacy DOMINIQUE SDOB: [birth year] (69 yo F)Acc No.[id number]:11/21/2024 Progress Notes Patient: Jacy GARCIA Provider: Wan Edwards MD :1955 A ge:69 Y S ex:Female Date:11/21/2024 Address:[address] [id number] Subjective: * Chief Complaints: * C hronic [...] today. She is going to see her organ pipe maker metal next week and will have blood work [...] w isdom teeth extraction tonsillectomy septum repair [id number] right cataract surgery 2012colonoscopy, adenomatous polyp 2004colonoscopy, [...] non-smoker S [facility] She has no children. * Medications: [...] She remains under the care of her defence force senior officer. She is asymptomatic at this time. 7 [...] under the care of Dr. Ashford, her organ pipe maker metal. She is now on a kidney transplant [...] Edwards MD Date: 0 11/21/2024 Generated for Timothy kennedy/Ngoc/Angelaitting on: 0 03/01/2025 12:05 PM EDT History and Physical Notes * [...]
--- OUTSIDE RECORDS SUMMARY | 2025-01-11 05:59 | XMS_ITS ---
Author Organization Meño Edwards III, MD Address [address] [place] [address] [place] [address] Care Team Providers Care Rivet Tester Name Role Phone Meño Edwards Primary Care Provider REASON FOR VISIT Rx Request Social History Sex Assigned At : Social History Observation Description Sex Assigned At Female Encounters Encounter Location Date Provider Diagnosis Meño Edwards III, MD [address] [place] [address] [place] [address] 01/11/2025 Meño Edwards Plan Of Treatment Next Appt Details Provider Name:Meño Edwards, 04/22/2025 09:30:00 AM, [address] [place] [address] [place], [address], Progress Notes * Jacy DOMINIQUE SDOB: [birth year] (69 yo F)Acc No.[id number]:01/11/2025 Patient: Jacy GARCIA :1955 A ge:69 Y S ex:Female Address:[address] [place] [address] * true * Date: Generated for Printi ng/Faxing/eTransmitting on: 0 03/01/2025 12:05 PM EDT
--- OUTSIDE RECORDS SUMMARY | 2025-01-11 07:51 | XMS_ITS ---
Author Organization Meño Edwards III, MD Address [address] [facility] [place] [address] Care Team Providers Care Box Turner Name Role Phone Meño Edwards Primary Care Provider [phone] Medications Medication SIG (Take, Route, Frequency, Duration) Notes Start Date End Date Status Amoxicillin-Pot Clavulanate 875-125 MG 1 tablet Orally every 12 hrs for 7 days 01/11/2025 01/18/2025 Active Social History Sex Assigned At : Social History Observation Description Sex Assigned At Female Encounters Encounter Location Date Provider Diagnosis Meño Edwards III, MD [address] [place] [address] [place] [address] 01/11/2025 Meño Edwards Plan Of Treatment Medication Medication Name Sig Start Date Stop Date Notes Amoxicillin-Pot Clavulanate 875-125 MG 1 tablet Orally every 12 hrs for 7 days 01/11/2025 01/18/2025 Next Appt Details Provider Name:Meño Edwards, 04/22/2025 09:30:00 AM, [address] [place] [address] [place], [address], Progress Notes * Jacy DOMINIQUE SDOB: [birth year] (69 yo F)Acc No.[id number]:01/11/2025 Patient: Jacy GARCIA :1955 A ge:69 Y S ex:Female Address:[address] [place] [address] * Refills Start Amoxicillin-Pot Clavulanate Tablet, 875-125 MG, Orally, 14 Tablet, 1 tablet, every 12 hrs, 7 days, Refills=0 * true * Date: Generated for Timothy kennedy/Ngoc/Yogesh on: 0 03/01/2025 12:05 PM EDT
--- NOTE | 2025-03-01 11:07 | HO.NEPHOV ---
Vital Signs 03/01/25 11:08 Height 5 ft 4 in Weight 110 lb 6 oz BMI 18.9 BP 130/60 Blood Pressure Location Rt brachial Position Sitting Pulse 44 L Pulse Source Pulse Oximeter Pulse Oximetry (%) 100 Oxygen Delivery Method Room Air Intake Visit Reasons: 1 MO FU-[facility] Terminal Makeup Operator Required: No Accompanied by: Self / Same As Patient Allergies No Known Allergies Allergy (Verified 03/01/25 11:08) HPI Comments Details: Jacy was seen in follow-up of her hypertension and advanced chronic kidney disease. She has not had any flare up of gout on her left foot. She is tolerating Allopurinol . She denies any uremic symptoms. She has not taken any nonsteroidal anti-inflammatories. Her blood pressure control is optimal. Her Amlodipine has been cut back due to edema. She maintains good hydration. She denies chest pain, shortness of breath, paroxysmal nocturnal dyspnea, orthopnea or urinary symptoms. Her last 24 hour urine collection showed a GFR close to 18 mls/minute. Her serum creatinine is stable. She had hyperkalemia and getting treatment for it. She has been having hairloss and has been having dizziness when she gets URI. She has been having intermittent incontinence issues. She is listed for renal transplant in [facility] Medical History (Updated 03/01/25 @ 11:23 by Marquise Ashford MD) Degenerative arthritis of cervical spine Osteoarthritis Hypothyroidism Anemia Thrombocytopenia Chronic kidney disease DDD (degenerative disc disease) Rotator cuff arthropathy of right shoulder Neck pain Low back pain Single kidney Environmental allergies Asthma Surgical History Hx of nasal septoplasty History of tonsillectomy and adenoidectomy Hx of colonoscopy Hx of bilateral cataract extraction Social History Alcohol intake: current Alcohol intake frequency: holidays/special occasions only Review of Systems Const All systems reviewed & are unremarkable except as noted in HPI and below Physical Exam Vital Signs: Last Vital Signs Pulse 44 L 03/01/25 11:08 BP 170/50 H 03/01/25 11:08 Pulse Ox 100 03/01/25 11:08 Oxygen Delivery Method Room Air 03/01/25 11:08 BMI result Body Mass Index 18.9 Const General: comfortable and no acute distress Orientation/consciousness: patient oriented x3 HEENT Head: Yes normocephalic Mouth: Normal oral and palatal mucosa present Eyes EOM: EOMs intact bilaterally Neck Neck: Yes supple Resp Auscultation: clear to auscultation bilaterally Cardio Jugular venous distension: no JVD Rate: regular rate GI Palpation (GI): Soft to palpation Auscultation: normal bowel sounds General: Yes no CVA tenderness Back/Spine/Pelvis Back: no CVA tenderness Skin General skin exam: no rashes or lesions noted Neuro General: patient oriented x3 and moves all extremities Extrem General: Yes no pedal edema Office Meds epoetin darryl-epbx 10,000 unit/mL injection solution Performing Provider: Marquise Ashford MD Performing Location: [facility] Administered by: Marquise Ashford MD on 03/01/25 11:27 Dose Route Admin Location Dispensed Lot Number Expiration Date [facility] [employer] 20,000 unit subcut LUE 2 mL [id number] 07/28/26 6471-5561-84 [employer] Total Dispensed Waste 2 mL 0 % Results Reviewed Nephrology Results: Hgb, (12.0-16.0) 9.4 g/dl L 02/26/25 WBC, (4.8-10.8) 5.4 X10*3/uL 02/26/25 Plt Count, (160-400) 132 X10*3/uL L 02/26/25 Sodium, (135-145) 138 mmol/L 02/26/25 Potassium, (3.3-5.1) 5.4 mmol/L H 02/26/25 Chloride, (96-108) 103 mmol/L 02/26/25 Carbon Dioxide, (22-29) 26 mmol/L 02/26/25 BUN, (9-16) 70 mg/dL H 02/26/25 Creatinine, (0.5-1.4) 3.67 mg/dL H 02/26/25 Calcium, (8.4-10.2) 9.1 mg/dL 02/26/25 Phosphorus, (2.7-4.5) 4.7 mg/dL H 01/21/25 PTH Intact, (8.7-77.1) 188.2 pg/mL H 01/21/25 Assessment & Plan Assessment & Plan (1) Incontinence: Code(s): R32 - Unspecified urinary incontinence Category: Medical Qualifiers: Incontinence type: urinary Urinary Incontinence type: other incontinence Qualified Code(s): N39.498 - Other specified urinary incontinence (2) Secondary hyperparathyroidism (of renal origin): Code(s): N25.81 - Secondary hyperparathyroidism of renal origin Category: Medical (3) CKD (chronic kidney disease) stage 4, GFR 15-29 ml/min: Code(s): N18.4 - Chronic kidney disease, stage 4 (severe) Category: Medical (4) Hypertension: Code(s): I10 - Essential (primary) hypertension Category: Medical Qualifiers: Hypertension type: secondary to other renal disorders Qualified Code(s): I15.1 - Hypertension secondary to other renal disorders (5) Anemia in chronic kidney disease: Code(s): N18.9 - Chronic kidney disease, unspecified; D63.1 - Anemia in chronic kidney disease Category: Medical Qualifiers: Chronic kidney disease stage: stage 4 (GFR 15-29) Qualified Code(s): N18.4 - Chronic kidney disease, stage 4 (severe); D63.1 - Anemia in chronic kidney disease (6) Dizziness: Code(s): R42 - Dizziness and giddiness Category: Medical Plan Jacy has left atrophic kidney. She has progressive renal dysfunction or many years. Her serum creatinine is stable. Her last cr cl was close to 18 mls/mt . She does not have any uremic symptoms. Her blood pressure is at goal at home . She can continue current dose of amlodipine & allopurinol daily. She maintains good hydration. She avoids nonsteroidal anti-inflammatories. I discussed with her regarding options of renal replacement therapy. She is listed for transplantation in [facility] . I started her on Meclizine. I have given her [address] U of Procrit in the office today. All her questions during this visit were answered. Follow-up appointment given Orders: Orders Complete Blood Count Auto Diff 1 Month D63.1 - Anemia in chronic kidney disease, I15.1 - Hypertension secondary to other renal disorders, N18.4 - Chronic kidney disease, stage 4 (severe), N25.81 - Secondary hyperparathyroidism of renal origin, N39.498 - Other specified urinary incontinence Electrolytes 1 Month D63.1 - Anemia in chronic kidney disease, I15.1 - Hypertension secondary to other renal disorders, N18.4 - Chronic kidney disease, stage 4 (severe), N25.81 - Secondary hyperparathyroidism of renal origin, N39.498 - Other specified urinary incontinence Calcium 1 Month D63.1 - Anemia in chronic kidney disease, I15.1 - Hypertension secondary to other renal disorders, N18.4 - Chronic kidney disease, stage 4 (severe), N25.81 - Secondary hyperparathyroidism of renal origin, N39.498 - Other specified urinary incontinence AMB Epoetin Injection Practice Supplied Today D63.1 - Anemia in chronic kidney disease, N18.4 - Chronic kidney disease, stage 4 (severe) Creatinine 1 Month D63.1 - Anemia in chronic kidney disease, I15.1 - Hypertension secondary to other renal disorders, N18.4 - Chronic kidney disease, stage 4 (severe), N25.81 - Secondary hyperparathyroidism of renal origin, N39.498 - Other specified urinary incontinence Blood Urea Nitrogen 1 Month D63.1 - Anemia in chronic kidney disease, I15.1 - Hypertension secondary to other renal disorders, N18.4 - Chronic kidney disease, stage 4 (severe), N25.81 - Secondary hyperparathyroidism of renal origin, N39.498 - Other specified urinary incontinence Referrals Urology Referral R32 - Unspecified urinary incontinence Medications: New meclizine 12.5 mg PO TID PRN 90 tabs 0RF dizziness 30 days Refilled sodium polystyrene sulfonate 30 grams orally once a week 453.6 grams 3RF Coding Level of Care Code Est Pt Level 4 (52726) Diagnoses Other urinary incontinence N39.498 Incontinence type: urinary Urinary Incontinence type: other incontinence Secondary hyperparathyroidism (of renal origin) N25.81 CKD (chronic kidney disease) stage 4, GFR 15-29 ml/min N18.4 Hypertension secondary to other renal disorders I15.1 Hypertension type: secondary to other renal disorders Anemia in stage 4 chronic kidney disease N18.4; D63.1 Chronic kidney disease stage: stage 4 (GFR 15-29) Dizziness R42
[2025-03-01 11:08] VITALS: BP 130/60; PULSE 44; O2SAT 100; BMI 18.9
--- OUTSIDE RECORDS SUMMARY | 2025-03-01 12:05 | XMS_ITS | Clinical Summary ---
Author Organization [facility] Address [address] [place] [address] Care Team Providers Care Runner Out Name Role Phone Unavailable Primary Care Provider [...]
--- OUTSIDE RECORDS SUMMARY | 2025-03-01 12:05 | XMS_ITS | Continuity of Care Document ---
Author Organization [facility] Address [address] [place] [address] Phone [phone] Social History Type Date Description Comments Sex Female Sex Unknown Medical Devices Description No Information Available Encounters Description No Information Available Assessments Description No Information Available Plan of Treatment No Information Available Functional Status Description No Information Available Mental Status Description No Information Available Referrals Description No Information Available
--- OUTSIDE RECORDS SUMMARY | 2025-03-01 12:05 | XMS_ITS | Patient Health Record ---
[facility] Address [address] [place] [address] Care Team Providers Care Piano Regulator Name Role Phone Meño Edwards MD Primary Care Provider London Quijano Unavailable [phone] Allergies Allergen (clinical drug ingredient) Drug/Non Drug [...] Date Coverage End Date Medicare National Govt [employer] [facility] [address] [place] [address] [id number] Jacy Goldberg Self - patient is the insured [employer] [address] [place] [address] [id number] Jacy Goldberg Self - patient is the insured Medical (General) History Medical History History ICD Code asthma Back pain CAD (Cholesterol) Cataracts Measles Mumps Kidney disease chronic sinusitis Warts Surgical History Surgery Date(Month/Year) tonsillectomy and adenoidectomy wisdom teeth extraction 1971 cataract surgery 10/28/2015 deviated septum repair 1976
--- OUTSIDE RECORDS SUMMARY | 2025-03-01 12:06 | XMS_ITS | Patient Health Record ---
Author Organization [facility] Address [address] [place] [address] Care Team Providers Care Chemical Engineering Intern Name Role Phone Meño Edwards MD Primary Care Provider UnavailFayd Monk Jr Unavailable [phone] Allergies Allergen (clinical drug ingredient) Drug/Non Drug [...] Problem Status W/U Status Risk Notes Problem 896350583 Colon cancer screening (V76.51) Active confirmed Problem 603965339 Colon cancer screening (Z12.11) Active confirmed Problem 423438623 Personal history of colonic polyps (Z86.010) Active confirmed Problem 261681960 Long-term curren t use of high risk medication other than anticoagulant (Z79.899) Active confirmed Plan Of Treatment Future Test Test Name Order Date COLONOSCOPY 04/01/2014 COLONOSCOPY 07/28/2020 Insurance Providers Payer Name Payer Address Payer Phone Subscriber Number Group Number Insured Name Patient Relationship to Insured Coverage Start Date Coverage End Date MEDICARE OF [place] [address] [place] [address] [id number] MENA DOMINIQUE Self - patient is the insured MED[employer] ATTN CLAIMS [address] [place] [address] [id number] MENA DOMINIQUE Self - patient is the [...]
--- OUTSIDE RECORDS SUMMARY | 2025-03-01 12:06 | XMS_ITS | Clinical Summary ---
Author Organization [facility] Address [address] [place] [address] Phone Care Team Providers Care Broadband Installer Name Role Phone Meño Edwards MD Primary Care Provider [phone] Allergies Active Allergy Reactions Criticality Noted Date [...] patient's age to complete this topic Insurance [facility] Medicare [facility] Medicare Care Teams Broadband Installer Relationship Specialty Start Date End Date Meño Edwards MD [address] [place] [address] [id number] [place], [place] PCP - General 07/07/20
--- OUTSIDE RECORDS SUMMARY | 2025-03-01 12:07 | XMS_ITS | Patient Health Record ---
Author Organization Meño Edwards III, MD Address [address] [place] [address] Care Team Providers Care Saxophone Player Name Role Phone Meño Edwards Primary Care [...] 1.3 BLD trace Negative - Menstrating no Electrolytes Reviewed date:03/26/2024 06:07:59 AM Interpretation: Performing Lab:[facility], [address] [place] [phone] Notes/Report: Sodium 140 135-145 mmol/L Potassium 5.5 3.3-5.1 mmol/L Chloride 110 96-108 mmol/L Carbon Dioxide 21 22-29 mmol/L Anion Gap 15 12-20 Blood Urea Nitrogen Reviewed date:03/26/2024 06:07:59 AM Interpretation: Performing Lab:[facility], [address] [place] [phone] Notes/Report: Blood Urea Nitrogen 63 9-16 mg/dL Creatinine Reviewed date:03/26/2024 06:07:59 AM Interpretation: Performing Lab:[facility], [address] [place] [phone] Notes/Report: Creatinine 3.04 0.5-1.4 mg/dL Estimated Glomerular Filt Rate 15 NOTE: For -[place] individuals, multiply the result by 1.210. Chronic Kidney Disease: Estimated GFR < 60 mL/min/1.73m2 Severe Kidney Disease: Estimated GFR < 15 mL/min/1.73m2 Creatinine Clearance Urine Reviewed date:03/26/2024 06:07:59 AM Interpretation: Performing Lab:[facility], [address] [place] [phone] Notes/Report: [id number] 0800 0800 Creatinine (CrCl) 3.04 0.5-1.4 mg/dL Creatinine Clearance 18.4 85-125 mL/min Creatinine, 24Hr Urine 0.8 1.0-2.0 G/Day Creatinine, mg/dL 40.82 Total Volume 24 Hour Urine 1974 Complete Blood Count Auto Di ff Reviewed date:04/15/2024 07:27:15 AM Interpretation: Performing Lab:[facility], [address] [place] [phone] Notes/Report: White Blood Count 4.2 4.8-10.8 X10*3/uL [...] NRBC Abs Auto 0.000 0.0-0.012 X10*3/uL Comprehensive [facility]. Panel Fa st Reviewed date:04/15/2024 07:27:15 AM Interpretation: Performing Lab:[address] [phone] Notes/Report: Sodium 143 135-145 mmol/L Potassium 4.8 3.3-5.1 mmol/L Chloride 109 96-108 mmol/L Carbon Dioxide 26 22-29 mmol/L Anion Gap 13 12-20 Blood Urea Nitrogen 84 9-16 mg/dL Creatinine 3.13 0.5-1.4 mg/dL Estimated Glomerular Filt Rate 15 NOTE: For -[place] individuals, multiply the result by 1.210. Chronic [...] Panel Reviewed date:04/15/2024 07:27:15 AM Interpretation: Performing Lab:[address] [address] Notes/Report: Triglycerides 95 <150 mg/dL Desirable Triglyceride: [...] Electrolytes Reviewed date:06/04/2024 05:33:48 AM Interpretation: Performing Lab:[facility], [address] [place] [phone] Notes/Report: Sodium 142 135-145 mmol/L Potassium 5.1 3.3-5.1 mmol/L Chloride 107 96-108 mmol/L Carbon Dioxide 29 22-29 mmol/L Anion Gap 11 12-20 Blood Urea Nitrogen Reviewed date:06/04/2024 05:33:48 AM Interpretation: Performing Lab:[facility], [address] [place] [phone] Notes/Report: Blood Urea Nitrogen 80 9-16 mg/dL Creatinine Reviewed date:06/04/2024 05:33:48 AM Interpretation: Performing Lab:[facility], [address] [place] [phone] Notes/Report: Creatinine 3.57 0.5-1.4 mg/dL Estimated Glomerular Filt Rate 13 Chronic Kidney Disease: Estimated GFR < 60 mL/min/1.73m2 Severe Kidney Disease: Estimated GFR < 15 mL/min/1.73m2 Complete Blood Count Auto Di ff Reviewed date:08/25/2024 06:24:46 PM Interpretation: Performing Lab:[facility], [address] [place] [phone] Notes/Report: White Blood Count 4.5 4.8-10.8 X10*3/uL [...] NRBC Abs Auto 0.000 0.0-0.012 X10*3/uL Comprehensive [facility]. Panel Fa st Reviewed date:08/25/2024 06:24:46 PM Interpretation: Performing Lab:[facility], [address] [place] [phone] Notes/Report: Sodium 143 135-145 mmol/L Potassium 5.4 [...] Panel Reviewed date:08/25/2024 06:24:46 PM Interpretation: Performing Lab:[address] [address] Notes/Report: Triglycerides 125 <150 mg/dL Desirable Triglyceride: [...] Thyroxine) Reviewed date:08/25/2024 06:24:46 PM Interpretation: Performing Lab:[address] [address] Notes/Report: Free T4 (Free Thyroxine) 0.93 0.71-1.85 ng/dL Thyroid Stimulating Hormone Reviewed date:08/25/2024 06:24:47 PM Interpretation: Performing Lab:[address] [address] Notes/Report: Thyroid Stimulating Hormone 4.83 0.32-4.0 uIU/mL Note: A sustained TSH level above 2.5 uIU/mL may warrant further investigation. TSH 3rd Generation ([facility]) Complete Blood Count Auto Di ff Reviewed date:09/09/2024 10:16:33 AM Interpretation: Performing Lab:[facility], [address] [place] [phone] Notes/Report: White Blood Count 4.3 4.8-10.8 X10*3/uL [...] Electrolytes Reviewed date:09/09/2024 10:16:33 AM Interpretation: Performing Lab:[facility], [address] [place] [phone] Notes/Report: Sodium 141 135-145 mmol/L Potassium 5.4 3.3-5.1 mmol/L Chloride 112 96-108 mmol/L Carbon Dioxide 20 22-29 mmol/L Anion Gap 14 12-20 Blood Urea Nitrogen Reviewed date:09/09/2024 10:16:33 AM Interpretation: Performing Lab:[facility], [address] [place] [phone] Notes/Report: Blood Urea Nitrogen 99 9-16 mg/dL Creatinine Reviewed date:09/09/2024 10:16:33 AM Interpretation: Performing Lab:[facility], [address] [place] [address] Notes/Report: Creatinine 3.45 0.5-1.4 mg/dL Estimated Glomerular Filt Rate 13 Chronic Kidney Disease: Estimated GFR < 60 mL/min/1.73m2 Severe Kidney Disease: Estimated GFR < 15 mL/min/1.73m2 Calcium Reviewed date:09/09/2024 10:16:33 AM Interpretation: Performing Lab:[facility], [address] [place] [phone] Notes/Report: Calcium 9.0 8.4-10.2 mg/dL IRON PROFILE Reviewed date:09/09/2024 10:16:33 AM Interpretation: Performing Lab:[facility], [address] [place] [phone] Notes/Report: Iron 85 30-160 mcg/dL Total Iron Binding Capacity 344 228-428 mcg/dL Percent Iron Saturation 25 15-50 % Unsaturated Iron Binding 259 Ferritin Reviewed date:09/09/2024 10:16:33 AM Interpretation: Performing Lab:[facility], [address] [place] [phone] Notes/Report: Ferritin 50 10-250 ng/mL Vitamin D 25-OH Total Reviewed date:09/09/2024 10:16:33 AM Interpretation: Performing Lab:[facility], [address] [place] [phone] Notes/Report: Vitamin D 25-OH Total 37.3 >30 [...] Intact Reviewed date:09/09/2024 10:16:33 AM Interpretation: Performing Lab:[facility], [address] [place] [address] Notes/Report: Parathyroid Hormone Intact 289.2 8.7-77.1 pg/mL MM tomosynthesis screening B I Reviewed date:10/05/2024 08:33:40 PM Interpretation: Performing Lab: Notes/Report: [address] [place] [address] Mammography Report Signed Patient: Jacy Goldberg MR#: [id number] : 1955 Acct:[id number] Age/Sex: 69 / F ADM Date: 09/24/24 Loc: HO.MAMMO Attending Dr: Meño Edwards MD Ordering Physician: Meño Edwards MD Results: 2Benign Findings Date of Service: 09/24/24 Follow Up: 1 Year From Orig ina Mammogram Procedure(s): MM tomosynthesis screening BI Accession Number(s): [id number] cc: Meño Edwards MD EXAMINATION: MM SCREENING [...] 09/29/24 1733 DD/ 9 TD/TT: 09/24/24 0852 Title Manager: [place] [facility] [address] [place] [address] Mammography Report Signed Patient: Shubham Goldberg MR#: [id number] : 1955 Acct:[id number] Age/Sex: 69 / F ADM Date: 09/24/24 Loc: HO.MAMMO Attending Dr: Meño Edwards MD Ordering Physician: Meño Edwards MD Results: 2Benign Findings Date of Service: 09/24/24 Follow Up: 1 Year From Orig ina Mammogram Procedure(s): MM tomosynthesis screening BI Accession Number(s): [id number] cc: Meño Edwards MD EXAMINATION: MM SCREENING [...] Triana DO in OV> 09/29/24 1733 DD/ TD/TT: 09/24/24 0852 Title Manager: Complete Blood Count Auto Di ff Reviewed date:02/27/2025 04:48:33 AM Interpretation: Performing Lab:[address] [address] Notes/Report: White Blood Count 5.4 4.8-10.8 X10*3/uL Red Blood Count 3.05 4.20-5.50 X10*6/uL Hemoglobin 9.4 12.0-16.0 g/dl Hematocrit 29.4 37.0-47.0 % Mean Corpuscular Volume 96.4 80.0-98.0 fL Mean Corpuscular Hemoglobin 30.8 27.0-33.0 pg Mean Corpuscular HGB Conc 32.0 31.0-35.0 g/dl Red Cell Distribution Width 13.7 11.0-16.0 % Platelet Count 132 160-400 X10*3/uL Mean Platelet Volume 11.5 9.4-12.3 fL Neutrophils Percent Auto 73.6 45-73 % Imm Gran Pct Auto 0.6 0.0-0.4 % Lymphocytes Percent Auto 16.4 20-40 % Monocytes Percent Auto 6.8 2-11 % Eosinophils Percent Auto 2.2 0-4 % Basophils Percent Auto 0.4 0-2 % NRBC Pct Auto 0.0 0.0-0.2 /100WBC Neutrophils Absolute Auto 4.0 2.0-8.3 x10*3/uL Imm Gran Abs Auto 0.03 0.00-0.03 X10*3/uL Lymphocytes Absolute Auto 0.9 1.2-4.9 X10*3/uL Monocytes Absolute Auto 0.4 0.1-1.2 X10*3/uL Eosinophils Absolute Auto 0.1 0.0-0.4 X10*3/uL Basophils Absolute Auto 0.0 0.0-0.2 X10*3/uL NRBC Abs Auto 0.000 0.0-0.012 X10*3/uL Electrolytes Reviewed date:02/27/2025 04:48:33 AM Interpretation: Performing Lab:[facility], [address] [place] [phone] Notes/Report: Sodium 138 135-145 mmol/L Potassium 5.4 3.3-5.1 mmol/L Chloride 103 96-108 mmol/L Carbon Dioxide 26 22-29 mmol/L Anion Gap 14 12-20 Blood Urea Nitrogen Reviewed date:02/27/2025 04:48:33 AM Interpretation: Performing Lab:[address] [phone] Notes/Report: Blood Urea Nitrogen 70 9-16 mg/dL Creatinine Reviewed date:02/27/2025 04:48:33 AM Interpretation: Performing Lab:[address] [address] Notes/Report: Creatinine 3.67 0.5-1.4 mg/dL Estimated Glomerular Filt Rate 12 Chronic Kidney Disease: Estimated GFR < 60 mL/min/1.73m2 Severe Kidney Disease: Estimated GFR < 15 mL/min/1.73m2 Calcium Reviewed date:02/27/2025 04:48:33 AM Interpretation: Performing Lab:[facility], [address] [place] [address] Notes/Report: Calcium 9.1 8.4-10.2 mg/dL Reason For Referral No Information Medications Medication SIG (Take, Route, Frequency, Duration) Notes Start Date End Date Status Atorvastatin Calcium 10 MG TAKE 1 TABLET BY MOUTH EVERY DAY Active amLODIPine Besylate 5 MG TAKE 1 TABLET B Y MOUTH EVERY DAY Active ProAir HFA 108 (90 Base) MCG/ACT 2 puffs as needed Inhalation every 4 hrs PRN Active Pulmicort Flexhaler 180 MCG/ACT 2 puffs Inhalation Twice a day October-March Active Calcium + D Active Vitamin E Active Triamcinolone Acetonide 0.1 % External Active Allopurinol 100 MG TAKE 1 TABLET BY MOUTH DAILY Oral Active Sodium Polystyrene Sulfonate - as directed Orally 30 grams per week 03/08/2024 Active Immunizations Vaccine Route Administration Date Status [...] Problem Status W/U Status Risk Notes Problem 528912369 Underweight (R63.6) Active confirmed Her weight has been stable lately with a body mass index of 18. Problem 982839114 Pancytopenia (D61.818) Active confirmed All 3 cell line s have been diminished. This is likely due to her chronic renal failure. The mean cell volume remains slightly elevated. It is being observed carefully. Problem 337770244 Skin cancer (C44.90) Active confirmed he recently had a basal cell carcinoma removed from the right side of her face and her left arm. There was no sign of residual disease today. Problem Hyperlipidemia (34903234) Hyperlipidemia, unspecified (E78.5) Active confirmed her lipids have been stable. No blood work is available today. A fasting lipid profile has been ordered. No change was made in her regimen. Problem Uncomplicated asthma (disorder) (779229176) Unspecified asthma, uncomplicated (J45.909) Active confirmed She has had no episodes of asthma recently. Problem 973981389 Mild intermittent asthma without complication (J45.20) Active confirmed She has had no difficulty with asthma lately. She has an inhaler which she has not been using. Problem 66604446 Cataracts, bilateral (H26.9) Active confirmed She will continue to see the mower mechanic to resolved these problems. Problem Osteoporosis (78506295) Osteoporosis (M81.0) Active confirmed She has been compliant with his therapy. It was reviewed with her today. Problem 499741070 Osteoarthritis (M19.90) Active confirmed She will continue on current therapy at this time. She will avoid NSAIDs. Problem 51149502 Thyroiditis (E06.9) Active confirmed This is not an active problem. She remains under the care of her dashboard developer. She is asymptomatic at this time. Problem Hypercholesterole brian (21704619) Hypercholestero lemia (E78.00) Active confirmed Comprehensive blood work with a fasting lipid profile is being done periodically. No change in her medication was made today. Her lipids have been controlled. Problem 677413121 Macular degeneration of both eyes, unspecified type (H35.30) Active confirmed Her vision has not changed since her last visit. She really remains under the care of the ophthalmologists . Problem Chronic kidney disease stage 3A (disorder) (556220645) Chronic kidney disease, stage 3a (N18.31) Active confirmed Her BUN is 70.The creatinine is 2.96. She is up-to-date with nephrology and continues on therapy without fail. Problem 47243349 Acute idiopathic gout involving toe of left foot (M10.072) Active confirmed The gout has no w resolved and she is on allopurinol. Vital Signs Heart Rate 59 /min 11/21/2024 Temperature 97.7 degrees Fahrenheit 11/21/2024 Blood pressure diastolic 60 mm Hg 11/21/2024 Height 65 in 11/21/2024 Blood pressure systolic 125 mm Hg 11/21/2024 Weight 114 lbs 11/21/2024 BMI 18.97 kg/m2 11/21/2024 Encounters Encounter Location Date Provider Diagnosis Meño Edwards III, MD [address] [place] [address] [place], [place] [address] 04/19/2024 Meño Edwards Hyperlipidemia, unsp ecified E78.5 ; CKD (chronic kidney disease) stage 3, GFR 30-59 ml/min N18.3 ; Pancytopenia D61.818 ; H/O hyperthyroidism Z86.39 ; Hypercholesterolemia E78.00 ; Neutropenia D70.9 ; Underweight R63.6 ; Mild intermittent asthma without complication J45.20 and Acute idiopathic gout involving toe of left foot M10.072 Meño Edwards III, MD [address] [place] [address] [place] [address] 08/23/2024 Meño Edwards Underweight R63.6 ; CKD (chronic kidney disease) stage 3, GFR 30-59 ml/min N18.3 ; Mild intermittent asthma without complication J45.20 ; Thrombocytopenia D69.6 ; Thyroiditis E06.9 and Osteoporosis M81.0 Meño Edwards III, MD [address] [place] [address] [place] [address] 11/21/2024 Meño Edwards Underweight R63.6 ; Pancytopenia D61.818 ; Mild intermittent asthma without complication J45.20 ; Osteoarthritis M19.90 ; Osteoporosis M81.0 ; Thyroiditis E06.9 ; Hyperlipidemia, unspecified E78.5 ; Unspecified asthma, uncomplicated J45.909 ; Macular degeneration of both eyes, unspecified type H35.30 ; Skin cancer C44.90 and CKD (chronic kidney disease) stage 3, GFR 30-59 ml/min N18.3 Meño Edwards III, MD [address] [place] [address] [place] [address] 06/14/2024 Meño Edwards III, MD [address] [place] [address] [place] [address] 08/31/2024 Meño Edwards III, MD [address] [place] [address] [place] [address] 01/11/2025 Meño Edwards III, MD [address] [place] [address] [place] [address] 01/11/2025 Meño Edwards Assessments Encounter Date Diagnosis (ICD [...] list for a kidney transplant by her press machine operator. 11/21/2024 Underweight (ICD-10 - R63.6) Her weight has been stable lately with a body mass index of 18. 11/21/2024 Pancytopenia (ICD-10 - D61.818) All 3 cell lines have been diminished. This is likely due to her chronic renal failure. The mean cell volume remains slightly elevated. It is being observed carefully. 04/19/2024 Pancytopenia (ICD-10 - D61.818) All 3 cell lines have been diminished. This is likely due to her chronic renal failure. The mean cell volume remains slightly elevated. It is being observed carefully. 08/23/2024 Mild intermittent as thma without complication (ICD-10 - J45.20) She has had no difficulty with asthma lately. She has an inhaler which she has not been using. 11/21/2024 Mild intermittent as thma without complication (ICD-10 - J45.20) She has had no difficulty with asthma lately. She has an inhaler which she has not been using. 04/19/2024 H/O hyperthyroidism (ICD-10 - Z86.39) She reports a good appetite. She is consuming adequate calories. She remains underweight. Her thyroid function tests will be checked once again. She has a history of thyroiditis. She is under the care of an dashboard developer. 08/23/2024 Thrombocytopenia (IC D-10 - D69.6) She has had no bleeding and is avoiding aspirin. 11/21/2024 Osteoarthritis (ICD- 10 - M19.90) She will continue on current therapy at this time. She will avoid NSAIDs. 04/19/2024 Hypercholesterolemia (ICD-10 - E78.00) Comprehensive blood work with a fasting lipid profile is being done periodically. No change in her medication was made today. Her lipids have been controlled. 08/23/2024 Thyroiditis (ICD-10 - E06.9) This is not an active problem. She remains under the care of her dashboard developer. She is asymptomatic at this time. 11/21/2024 Osteoporosis (ICD-10 - M81.0) She has [...] She remains under the care of her dashboard developer. She is asymptomatic at this time. 04/19/2024 Underweight (ICD-10 - R63.6) Her weight has been stable lately with a body mass index of 17. 11/21/2024 Hyperlipidemia, unspecified (ICD-10 - E78.5) her lipids have been stable. No blood work is available today. A fasting lipid profile has been ordered. No change was made in her regimen. 04/19/2024 Mild intermittent as thma without complication (ICD-10 - J45.20) She has had no difficulty with asthma lately. She has an inhaler which she has not been using. 11/21/2024 Unspecified asthma, uncomplicated (ICD-10 - J45.909) She has had no episodes of asthma recently. 04/19/2024 Acute idiopathic gou t involving toe of left foot (ICD-10 - M10.072) The gout has now resolved and she is on allopurinol. 11/21/2024 Macular degeneration of both eyes, unspecified [...] under the care of Dr. [place], her press machine operator. She is now on a kidney transplant list and is being prepared for transplantation. Plan Of Treatment Pending Test Test Name [...] C) 04/01/2022 PROFILE, FASTING (COMPREHENSIVE METABOLI C) 11/21/2024 PROFILE, FASTING (COMPREHENSIVE METABOLI C) 04/13/2021 PROFILE, FASTING (COMPREHENSIVE METABOLI C) 11/11/2021 PROFILE, FASTING (COMPREHENSIVE METABOLI C) 01/14/2023 PROFILE, FASTING (COMPREHENSIVE METABOLI C) 08/23/2024 PROFILE, RANDOM (COMPREHENSIVE METABOLIC ) 01/31/2024 LIPID [...] CBC w DIFF 10/07/2022 CBC w DIFF 11/21/2024 CBC w DIFF 04/13/2021 CBC w DIFF 12/13/2017 CBC w DIFF 04/01/2022 CBC w DIFF 10/20/2020 SED RATE (ESR) 11/11/2021 BONE DENSITY DEXA 12/07/2021 BONE DENSITY DEXA 05/19/2020 BONE DENSITY DEXA 06/05/2020 US CAROTID BILATERAL DOPPLER 07/19/2018 VITAMIN D 25-OH TOTAL 04/01/2022 CBC WITH AUTO DIFF 08/23/2024 CBC WITH AUTO DIFF 10/20/2023 CBC WITH AUTO DIFF 01/31/2024 Uric Acid 11/21/2024 Lipid Panel 11/21/2024 Lipid Panel 08/23/2024 Lipid Panel 10/20/2023 Lipid Panel 08/14/2021 Lipid Panel 04/19/2024 Lipid Panel 04/07/2023 Lipid Panel 04/13/2021 Vitamin D 25-OH Total 11/21/2024 Vitamin D 25-OH Total 04/07/2023 Free T4 (Free Thyroxine) 04/19/2024 Next Appt Details Provider Name:Meño Jacksonne, 04/22/2025 09:30:00 AM, [address] [place] [address] [address], [place], [address], Insurance Providers Payer Name Payer Address Payer Phone Subscriber Number Group Number Insured Name Patient Relationship to Insured Coverage Start Date Coverage End Date MEDICARE NGS [address] [place] [address] [id number] Jacy Goldberg Self - patient is the insured [facility] [address] [place], [place] [id number] Jacy Goldberg Self - patient is the insured Medical (General) History Medical History History ICD Code degenerative arthritis of the cervical s pine spine asthma osteoarthritis hemorhoids thrombocytopenia cataracts last bilateral mammogram 12/18/2012 @ [facility] R&I anemia hyperthyroid abnormal renal function Surgical History Surgery Date(Month/Year) No history Basal Cell removed, Left arm 01/10/2023 biopsy on left index finger 09/2018 colonoscopy, wnl 2009 colonoscopy, adenomatous polyp 2004 right cataract surgery 2011 [id number] septum repair tonsillectomy wisdom teeth extraction Hospitalization History Reason Date(Month/Year) No history
== END 2025-03-01 11:35 | disposition home or self-care (01) ==
LOC: HO.HKA 11:03
PROVIDERS: PCP Internal Medicine Medical Oncology; Visit Provider Internal Medicine Nephrology
DX: N39.498 Other specified urinary incontinence (principal); N25.81 Secondary hyperparathyroidism of renal origin; N18.4 Chronic kidney disease, stage 4 (severe); I15.1 Hypertension secondary to other renal disorders; D63.1 Anemia in chronic kidney disease; R42 Dizziness and giddiness
CPT/HCPCS: 99214

== ENCOUNTER → 2025-03-01 11:02 | Outpatient (BNVA) | payer MEDICARE, SELFPAY | PROVIDERS: PCP Internal Medicine Medical Oncology; Visit Provider Internal Medicine Nephrology | DX: N18.4 Chronic kidney disease, stage 4 (severe) (principal); D63.1 Anemia in chronic kidney disease; I15.1 Hypertension secondary to other renal disorders; N25.81 Secondary hyperparathyroidism of renal origin; N39.498 Other specified urinary incontinence | CPT/HCPCS: 96372; 99212; Q5106 ==

== ENCOUNTER 2025-03-26 16:02 | Outpatient (REF) | payer MEDICARE, SELFPAY ==
--- OUTSIDE RECORDS SUMMARY | 2023-10-06 10:30 | XMS_ITS ---
Author Organization [facility] Address [address] [facility] [place] [address] Care Team Providers Care Labor Relations Teacher Name Role Phone Grace BAKER, Meño Primary Care Provider Unavailab London Braswell Unavailable [phone] Vin Quevedo Unavailable [phone] REASON FOR VISIT Seen Sooner Encounters Encounter Location Date Provider Diagnosis [facility] [address] [place] [phone] 10/06/2023 Vin Quevedo Plan Of Treatment No Information Progress Notes * Jacy DOMINIQUE SDOB: [birth year] (70 yo F)Acc No.[id number]:10/06/2023 Progress Note Patient: Jacy GARCIA Provider: Migdalia Quevedo DPM :1955 A ge:68 Y S ex:Female Date:10/06/2023 Address:[address] [id number] Pcp:Meño Edwards MD Subjective: * Chief Complaints: [...] 10/06/2023 Generated for Printi ng/Fatongg/eTransmitting on: 0 03/26/2025 05:05 PM EDT
--- OUTSIDE RECORDS SUMMARY | 2024-08-23 05:30 | XMS_ITS ---
Author Organization Meño Edwards III, MD Address [address] [place] [address] Care Team Providers Care Wilton Weaver Name Role Phone Dr. Meño Edwards III [...] Provider Diagnosis Meño Edwards III, MD [address] [place] [address] [address], [place] [address] 08/23/2024 Meño Edwards Underweight R63.6 ; CKD [...] list for a kidney transplant by her service center assistant. 08/23/2024 Mild intermittent asthma without complication (ICD-10 - J45.20) She has had no difficulty with asthma lately. She has an inhaler which she has not been using. 08/23/2024 Thrombocytopenia (ICD-10 - D69.6) She has had no bleeding and is avoiding aspirin. 08/23/2024 Thyroiditis (ICD-10 - E06.9) This is not an active problem. She remains under the care of her future farmers of [employer] advisor. She is asymptomatic at this time. 08/23/2024 [...] Name:Meño Edwards , 04/22/2025 09:30:00 AM, [address] [place] [address] , [address], [place], [address], Progress Notes * Jacy DOMINIQUE SDOB: [birth year] (69 yo F)Acc No.[id number]:08/23/2024 Progress Notes Patient: Jacy GARCIA Provider: Wan Edwards MD :1955 A ge:69 Y S ex:Female Date:08/23/2024 Address:[address] [place] [phone] Subjective: * Chief Complaints: * U nderweightPancytopeniaAsthmaCKDGoutMacular degenerationOn kidney transplant list * HPI: C OVID-19 Screening: moving to [place] dont know when. Questions H ave you [...] her new glasses. She has seen an paper reeler twice this year for this issue. The [...] w isdom teeth extraction tonsillectomy septum repair [id number] right cataract surgery 2012colonoscopy, adenomatous polyp 2004colonoscopy, [...] Filt Rate 13 15 14 * Lab:Comprehensive [place]. Pane l Fast * Collection Date 08/21/2024 [...] list for a kidney transplant by her service center assistant. 2 . U nderweight - R63.6 N [...] She remains under the care of her future [employer] advisor. She is asymptomatic at this time. 6 [...] true * Provider: Wan Edwards MD Date: 08/23/2024 Generated for Deepikai brent/Ngoc/Angelaitting on: 0 03/26/2025 05:05 PM EDT History and Physical Notes * [...]
--- OUTSIDE RECORDS SUMMARY | 2024-08-31 08:11 | XMS_ITS ---
Author Organization Meño Edwards III, MD Address [address] [place] [address] [place] [address] Care Team Providers Care Rosin Barrel Filler Name Role Phone Dr. Meño Edwards III [...] Date Provider Diagnosis Meño Edwards III, MD [address] [place] [address] [place] [address] 08/31/2024 Meño Edwards Plan Of Treatment Medication Medication Name Sig Start Date Stop Date Notes amLODIPine Besylate 5 MG 1 tablet Orally Once a day for 30 days Next Appt Details Provider Name:Meño Edwards , 04/22/2025 09:30:00 AM, [address] [place] [address] [place], [address], Progress Notes * Jacy DOMINIQUE SDOB: [birth year] (69 yo F)Acc No.[id number]:08/31/2024 Patient: Jacy GARCIA :1955 A ge:69 Y S ex:Female Address:[address] [place] [address] * Refills Refill amLODIPine Besylate Tablet, 5 MG, Orally, 30 Tablet, 1 tablet, Once a day, 30 days, Refills=11 * true * Date: Generated for Timothy kennedy/Ngoc/Angelaitting on: 0 03/26/2025 05:04 PM EDT
--- OUTSIDE RECORDS SUMMARY | 2024-11-21 05:30 | XMS_ITS ---
Author Organization Meño Edwards III, MD Address [address] [place] [address] Care Team Providers Care Branch Employment Coordinator Name Role Phone Dr. Meño Edwards III Primary Care Provider [phone] Allergies Allergen (clinical drug ingredient) Drug/Non Drug [...] Date Provider Diagnosis Meño Edwards III, MD [address] [place] [address] [address], [place] [address] 11/21/2024 Meño Edwards Underweight R63.6 ; Pancytopenia [...] She remains under the care of her electrician refinery. She is asymptomatic at this time. 11/21/2024 [...] under the care of Dr. Ashford, her corporate quality engineer. She is now on a kidney [...] Provider Name:Meño Edwards , 04/22/2025 09:30:00 AM, [address] [place] [address] [address], [place], [place], [address], Progress Notes * Jacy DOMINIQUE SDOB: [birth year] (69 yo F)Acc No.[id number]:11/21/2024 Progress Notes Patient: Aidee ADAMJacy COTTRELL Provider: [...] today. She is going to see her corporate quality engineer next week and will have blood [...] w isdom teeth extraction tonsillectomy septum repair [id number] right cataract surgery 2012colonoscopy, adenomatous polyp 2004colonoscopy, [...] is single and comes fom [facility]. She has no children. * Medications: T [...] She remains under the care of her electrician refinery. She is asymptomatic at this time. 7 [...] under the care of Dr. Ashford, her corporate quality engineer. She is now on a kidney [...] true * Provider: Wan Edwards MD Date: 11/21/2024 Generated for Timothy kennedy/Ngoc/Angelaitting on: 03/26/2025 05:04 PM EDT History and Physical Notes * [...]
--- OUTSIDE RECORDS SUMMARY | 2025-01-11 05:59 | XMS_ITS ---
Author Organization Meño Edwards III, MD Address [address] [place] [address] [place] [address] Care Team Providers Care Tar Leveler Name Role Phone Dr. Meño Edwards III Primary Care Provider REASON FOR VISIT Rx Request Social History Sex Assigned At : Social History Observation Description Sex Assigned At Female Encounters Encounter Location Date Provider Diagnosis Meño Edwards III, MD [address] [place] [address] [place] [address] 01/11/2025 Meño Edwards Plan Of Treatment Next Appt Details Provider Name:Meño Edwards , 04/22/2025 09:30:00 AM, [address] [place] [address] [place], [address], Progress Notes * Jacy DOMINIQUE SDOB: [birth year] (69 yo F)Acc No.[id number]:01/11/2025 Patient: Jacy GARCIA :1955 A ge:69 Y S ex:Female Address:[place] [address] * true * Date: Generated for Printi ng/Faxing/eTransmitting on: 0 03/26/2025 05:04 PM EDT
--- OUTSIDE RECORDS SUMMARY | 2025-01-11 07:51 | XMS_ITS ---
Author Organization Meño Edwards III, MD Address [address] [place] [address] [place] [address] Care Team Providers Care Physical Sciences Professor Name Role Phone Dr. Meño Edwards III Primary Care Provider [phone] Medications Medication SIG (Take, Route, Frequency, Duration) Notes Start Date End Date Status Amoxicillin-Pot Clavulanate 875-125 MG 1 tablet Orally every 12 hrs for 7 days 01/11/2025 01/18/2025 Active Social History Sex Assigned At : Social History Observation Description Sex Assigned At Female Encounters Encounter Location Date Provider Diagnosis Meño Edwards III, MD [address] [place] [address] [place] [address] 01/11/2025 Meño Edwards Plan Of Treatment Medication Medication Name Sig Start Date Stop Date Notes Amoxicillin-Pot Clavulanate 875-125 MG 1 tablet Orally every 12 hrs for 7 days 01/11/2025 01/18/2025 Next Appt Details Provider Name:Meño Edwards , 04/22/2025 09:30:00 AM, [address] [place] [address] [place], [address], Progress Notes * Jacy DOMINIQUE SDOB: [birth year] (69 yo F)Acc No.[id number]:01/11/2025 Patient: Aidee Jacy COFFMAN :1955 A ge:69 Y S ex:Female Address:[address] [place] [address] * Refills Start Amoxicillin-Pot Clavulanate Tablet, 875-125 MG, Orally, 14 Tablet, 1 tablet, every 12 hrs, 7 days, Refills=0 * true * Date: Generated for Timothy kennedy/Ngoc/Yogesh on: 0 03/26/2025 05:04 PM EDT
[2025-03-26 16:15] LABS: MANUAL DIFF FLAG NO
--- OUTSIDE RECORDS SUMMARY | 2025-03-26 17:04 | XMS_ITS | Patient Health Record ---
Author Organization [facility] Address [address] [place] [address] Care Team Providers Care Sinker Winder Name Role Phone Meño Edwards MD Primary Care Provider London Quijano Unavailable [phone] Allergies Allergen (clinical drug ingredient) Drug/Non Drug [...] Date Coverage End Date Medicare National Govt [facility] [facility] [address] [place] [address] [id number] Jacy Goldberg Self - patient is the insured [employer] [address] [place] [address] [id number] Jacy Goldberg Self - patient is the insured Medical (General) History Medical History History ICD Code asthma Back pain CAD (Cholesterol) Cataracts Measles Mumps Kidney disease chronic sinusitis Warts Surgical History Surgery Date(Month/Year) tonsillectomy and adenoidectomy wisdom teeth extraction 1971 cataract surgery 10/28/2015 deviated septum repair 1976
--- OUTSIDE RECORDS SUMMARY | 2025-03-26 17:04 | XMS_ITS | Clinical Summary ---
Author Organization [facility] includes [facility] Address [address] [place] [address] Care Team Providers Care Boilermaker'S Assistant Name Role Phone Unavailable Primary Care Provider [...]
--- OUTSIDE RECORDS SUMMARY | 2025-03-26 17:05 | XMS_ITS | Patient Health Record ---
Author Organization [facility] Address [address] [place] [address] Care Team Providers Care Data Reporting Analyst Name Role Phone Meño Edwards MD Primary Care Provider UnavailFady Monk Jr Unavailable [phone] Allergies Allergen (clinical drug ingredient) Drug/Non Drug [...] Problem Status W/U Status Risk Notes Problem 819220248 Colon cancer screening (V76.51) Active confirmed Problem 838945748 Colon cancer screening (Z12.11) Active confirmed Problem 798170538 Personal history of colonic polyps (Z86.010) Active confirmed Problem 761153603 Long-term curren t use of high risk medication other than anticoagulant (Z79.899) Active confirmed Plan Of Treatment Future Test Test Name Order Date COLONOSCOPY 04/01/2014 COLONOSCOPY 07/28/2020 Insurance Providers Payer Name Payer Address Payer Phone Subscriber Number Group Number Insured Name Patient Relationship to Insured Coverage Start Date Coverage End Date MEDICARE OF [place] [address] [place] [address] [id number] MENA DOMINIQUE Self - patient is the insured [employer] CLAIMS [address] [place] [address] [id number] MENA DOMINIQUE Self - patient is the [...]
--- OUTSIDE RECORDS SUMMARY | 2025-03-26 17:05 | XMS_ITS | Clinical Summary ---
Author Organization [facility] Address [address] [place] [address] Phone Care Team Providers Care Senior Accounting Analyst Name Role Phone Meño Edwards MD Primary Care Provider [phone] Allergies Active Allergy Reactions Criticality Noted Date [...] patient's age to complete this topic Insurance [facility] Medicare [facility] Medicare Care Teams Senior Accounting Analyst Relationship Specialty Start Date End Date Meño Edwards MD [address] [place] [address] [address] [place], [place] PCP - General 07/07/20
--- OUTSIDE RECORDS SUMMARY | 2025-03-26 17:05 | XMS_ITS | Patient Health Record ---
Author Organization Meño Edwards III, MD Address [address] [address] Care Team Providers Care Mill Attendant Name Role Phone Dr. Meño Edwards III Primary Care Provider [phone] Allergies Allergen (clinical drug ingredient) Drug/Non Drug [...] ff Reviewed date:04/15/2024 07:27:15 AM Interpretation: Performing Lab:[facility], [address] [place] [phone] Notes/Report: White Blood Count 4.2 4.8-10.8 X10*3/uL [...] NRBC Abs Auto 0.000 0.0-0.012 X10*3/uL Comprehensive Roma. Panel Fa st Reviewed date:04/15/2024 07:27:15 AM Interpretation: Performing Lab:[facility], [address] [place] [phone] Notes/Report: Sodium 143 135-145 mmol/L Potassium 4.8 3.3-5.1 mmol/L Chloride 109 96-108 mmol/L Carbon Dioxide 26 22-29 mmol/L Anion Gap 13 12-20 Blood Urea Nitrogen 84 9-16 mg/dL Creatinine 3.13 0.5-1.4 mg/dL Estimated Glomerular Filt Rate 15 NOTE: For -[place] individuals, multiply the result by 1.210. Chronic [...] Panel Reviewed date:04/15/2024 07:27:15 AM Interpretation: Performing Lab:[facility], [address] [place] [phone] Notes/Report: Triglycerides 95 <150 mg/dL Desirable Triglyceride: [...] Electrolytes Reviewed date:06/04/2024 05:33:48 AM Interpretation: Performing Lab:[facility], [address] [place] [phone] Notes/Report: Sodium 142 135-145 mmol/L Potassium 5.1 3.3-5.1 mmol/L Chloride 107 96-108 mmol/L Carbon Dioxide 29 22-29 mmol/L Anion Gap 11 12-20 Blood Urea Nitrogen Reviewed date:06/04/2024 05:33:48 AM Interpretation: Performing Lab:[facility], [address] [place] [phone] Notes/Report: Blood Urea Nitrogen 80 9-16 mg/dL Creatinine Reviewed date:06/04/2024 05:33:48 AM Interpretation: Performing Lab:[facility], [address] [place] [phone] Notes/Report: Creatinine 3.57 0.5-1.4 mg/dL Estimated Glomerular Filt Rate 13 Chronic Kidney Disease: Estimated GFR < 60 mL/min/1.73m2 Severe Kidney Disease: Estimated GFR < 15 mL/min/1.73m2 Complete Blood Count Auto Di ff Reviewed date:08/25/2024 06:24:46 PM Interpretation: Performing Lab:[facility], [address] [place] [phone] Notes/Report: White Blood Count 4.5 4.8-10.8 X10*3/uL [...] NRBC Abs Auto 0.000 0.0-0.012 X10*3/uL Comprehensive Roma. Panel Fa st Reviewed date:08/25/2024 06:24:46 PM Interpretation: Performing Lab:[facility], [address] [place] [phone] Notes/Report: Sodium 143 135-145 mmol/L Potassium 5.4 [...] Panel Reviewed date:08/25/2024 06:24:46 PM Interpretation: Performing Lab:[address] [phone] Notes/Report: Triglycerides 125 <150 mg/dL Desirable Triglyceride: [...] Thyroxine) Reviewed date:08/25/2024 06:24:46 PM Interpretation: Performing Lab:[address] [phone] Notes/Report: Free T4 (Free Thyroxine) 0.93 0.71-1.85 ng/dL Thyroid Stimulating Hormone Reviewed date:08/25/2024 06:24:47 PM Interpretation: Performing Lab:[facility], [address] [place] [phone] Notes/Report: Thyroid Stimulating Hormone 4.83 0.32-4.0 uIU/mL Note: A sustained TSH level above 2.5 uIU/mL may warrant further investigation. TSH 3rd Generation ([facility]) Complete Blood Count Auto Di ff Reviewed date:09/09/2024 10:16:33 AM Interpretation: Performing Lab:[facility], [address] [place] [phone] Notes/Report: White Blood Count 4.3 4.8-10.8 X10*3/uL [...] Electrolytes Reviewed date:09/09/2024 10:16:33 AM Interpretation: Performing Lab:[facility], [address] [place] [phone] Notes/Report: Sodium 141 135-145 mmol/L Potassium 5.4 3.3-5.1 mmol/L Chloride 112 96-108 mmol/L Carbon Dioxide 20 22-29 mmol/L Anion Gap 14 12-20 Blood Urea Nitrogen Reviewed date:09/09/2024 10:16:33 AM Interpretation: Performing Lab:[facility], [address] [place] [phone] Notes/Report: Blood Urea Nitrogen 99 9-16 mg/dL Creatinine Reviewed date:09/09/2024 10:16:33 AM Interpretation: Performing Lab:[facility], [address] [place] [phone] Notes/Report: Creatinine 3.45 0.5-1.4 mg/dL Estimated Glomerular Filt Rate 13 Chronic Kidney Disease: Estimated GFR < 60 mL/min/1.73m2 Severe Kidney Disease: Estimated GFR < 15 mL/min/1.73m2 Calcium Reviewed date:09/09/2024 10:16:33 AM Interpretation: Performing Lab:[facility], [address] [place] [phone] Notes/Report: Calcium 9.0 8.4-10.2 mg/dL IRON PROFILE Reviewed date:09/09/2024 10:16:33 AM Interpretation: Performing Lab:[facility], [address] [place] [phone] Notes/Report: Iron 85 30-160 mcg/dL Total Iron Binding Capacity 344 228-428 mcg/dL Percent Iron Saturation 25 15-50 % Unsaturated Iron Binding 259 Ferritin Reviewed date:09/09/2024 10:16:33 AM Interpretation: Performing Lab:[facility], [address] [place] [phone] Notes/Report: Ferritin 50 10-250 ng/mL Vitamin D 25-OH Total Reviewed date:09/09/2024 10:16:33 AM Interpretation: Performing Lab:[facility], [address] [place] [phone] Notes/Report: Vitamin D 25-OH Total 37.3 >30 [...] Intact Reviewed date:09/09/2024 10:16:33 AM Interpretation: Performing Lab:[facility], [address] [place] [phone] Notes/Report: Parathyroid Hormone Intact 289.2 8.7-77.1 pg/mL MM tomosynthesis screening B I Reviewed date:10/05/2024 08:33:40 PM Interpretation: Performing Lab: Notes/Report: [address] [place] [id number] Mammography Report Signed Patient: Jacy Goldberg MR#: [id number] : 1955 Acct:[id number] Age/Sex: 69 / F ADM Date: 09/24/24 Loc: HO.MAMMO Attending Dr: Meño Edwards MD Ordering Physician: Meño Edwards MD Results: 2Benign Findings Date of Service: 09/24/24 Follow Up: 1 Year From [facility] Procedure(s): MM tomosynthesis screening BI Accession Number(s): [id number] cc: Meño Edwards MD EXAMINATION: MM SCREENING [...] for their next mammogram. Electronically signed by: Tirsha Triana DO 09/29/2024 05:33 PM EDT RP Dictated By: Trisha Triana DO Signed By: <Electronically signed by Trisha Triana DO in OV> 09/29/24 1733 DD/ 9 TD/TT: 09/24/24 0852 Travel Accommodations Rater: [facility] [place] [address] Mammography Report Signed Patient: Shubham Goldberg MR#: [id number] : 1955 Acct:[id number] Age/Sex: 69 / F ADM Date: 09/24/24 Loc: HO.MAMMO Attending Dr: Meño Edwards MD Ordering Physician: Meño Edwards MD Results: 2Benign Findings Date of Service: 09/24/24 Follow Up: 1 Year From [facility] Procedure(s): MM tomosynthesis screening BI Accession Number(s): [id number] cc: Meño Edwards MD EXAMINATION: MM SCREENING [...] OV> 09/29/24 1733 DD/ TD/TT: 09/24/24 0852 Travel Accommodations Rater: Complete Blood Count Auto Di ff Reviewed date:02/27/2025 04:48:33 AM Interpretation: Performing Lab:[facility], [address] [place] [phone] Notes/Report: White Blood Count 5.4 4.8-10.8 X10*3/uL [...] Electrolytes Reviewed date:02/27/2025 04:48:33 AM Interpretation: Performing Lab:[facility], [address] [place] [phone] Notes/Report: Sodium 138 135-145 mmol/L Potassium 5.4 3.3-5.1 mmol/L Chloride 103 96-108 mmol/L Carbon Dioxide 26 22-29 mmol/L Anion Gap 14 12-20 Blood Urea Nitrogen Reviewed date:02/27/2025 04:48:33 AM Interpretation: Performing Lab:[facility], [address] [place] [phone] Notes/Report: Blood Urea Nitrogen 70 9-16 mg/dL Creatinine Reviewed date:02/27/2025 04:48:33 AM Interpretation: Performing Lab:[facility], [address] [place] [phone] Notes/Report: Creatinine 3.67 0.5-1.4 mg/dL Estimated Glomerular Filt Rate 12 Chronic Kidney Disease: Estimated GFR < 60 mL/min/1.73m2 Severe Kidney Disease: Estimated GFR < 15 mL/min/1.73m2 Calcium Reviewed date:02/27/2025 04:48:33 AM Interpretation: Performing Lab:[facility], [address] [place] [phone] Notes/Report: Calcium 9.1 8.4-10.2 mg/dL Reason For [...] Problem Status W/U Status Risk Notes Problem 739398967 Underweight (R63.6) Active confirmed Her weight has been stable lately with a body mass index of 18. Problem 551845881 Pancytopenia (D61.818) Active confirmed All 3 cell line s have been diminished. This is likely due to her chronic renal failure. The mean cell volume remains slightly elevated. It is being observed carefully. Problem 785769488 Skin cancer (C44.90) Active confirmed he recently had a basal cell carcinoma removed from the right side of her face and her left arm. There was no sign of residual disease today. Problem Hyperlipidemia (50787476) Hyperlipidemia, unspecified (E78.5) Active confirmed her lipids have been stable. No blood work is available today. A fasting lipid profile has been ordered. No change was made in her regimen. Problem Uncomplicated asthma (disorder) (682218164) Unspecified asthma, uncomplicated (J45.909) Active confirmed She has had no episodes of asthma recently. Problem 047487541 Mild intermittent asthma without complication (J45.20) Active confirmed She has had no difficulty with asthma lately. She has an inhaler which she has not been using. Problem 87138616 Cataracts, bilateral (H26.9) Active confirmed She will continue to see the photographic equipment mechanic to resolved these problems. Problem Osteoporosis (71698838) Osteoporosis (M81.0) Active confirmed She has been compliant with his therapy. It was reviewed with her today. Problem 889292754 Osteoarthritis (M19.90) Active confirmed She will continue on current therapy at this time. She will avoid NSAIDs. Problem 20866801 Thyroiditis (E06.9) Active confirmed This is not an active problem. She remains under the care of her fern picker. She is asymptomatic at this time. Problem Hypercholesterole brian (69466191) Hypercholestero lemia (E78.00) Active confirmed Comprehensive blood work with a fasting lipid profile is being done periodically. No change in her medication was made today. Her lipids have been controlled. Problem 689081950 Macular degeneration of both eyes, unspecified type (H35.30) Active confirmed Her vision has not changed since her last visit. She really remains under the care of the ophthalmologists . Problem Chronic kidney disease stage 3A (disorder) (117354337) Chronic kidney disease, stage 3a (N18.31) Active confirmed Her BUN is 70.The creatinine is 2.96. She is up-to-date with nephrology and continues on therapy without fail. Problem 39545665 Acute idiopathic gout involving toe of left [...] Date Provider Diagnosis Meño Edwards III, MD [address] [place] [address] [place] [address] 04/19/2024 Meño Edwards Hyperlipidemia, unsp ecified E78.5 ; CKD (chronic kidney disease) stage 3, GFR 30-59 ml/min N18.3 ; Pancytopenia D61.818 ; H/O hyperthyroidism Z86.39 ; Hypercholesterolemia E78.00 ; Neutropenia D70.9 ; Underweight R63.6 ; Mild intermittent asthma without complication J45.20 and Acute idiopathic gout involving toe of left foot M10.072 Meño Edwards III, MD [address] [place] [address] [place] [address] 08/23/2024 Meño Edwards Underweight R63.6 ; CKD (chronic kidney disease) stage 3, GFR 30-59 ml/min N18.3 ; Mild intermittent asthma without complication J45.20 ; Thrombocytopenia D69.6 ; Thyroiditis E06.9 and Osteoporosis M81.0 Meño Edwards III, MD [address] [place] [address] [place] [address] 11/21/2024 Meño Edwards Underweight R63.6 ; Pancytopenia D61.818 ; Mild intermittent asthma without complication J45.20 ; Osteoarthritis M19.90 ; Osteoporosis M81.0 ; Thyroiditis E06.9 ; Hyperlipidemia, unspecified E78.5 ; Unspecified asthma, uncomplicated J45.909 ; Macular degeneration of both eyes, unspecified type H35.30 ; Skin cancer C44.90 and CKD (chronic kidney disease) stage 3, GFR 30-59 ml/min N18.3 Meño Edwards III, MD [address] [place] [address] [place] [address] 06/14/2024 Meño Edwards III, MD [address] [place] [address] [place] [address] 08/31/2024 Meño Edwards III, MD [address] [place] [address] [place] [address] 01/11/2025 Meño Edwards III, MD [address] [place] [address] [place] [address] 01/11/2025 Meño Edwards Assessments Encounter Date Diagnosis [...] list for a kidney transplant by her wellness coach. 11/21/2024 Underweight (ICD-10 - R63.6) Her weight [...] She is under the care of an fern picker. 08/23/2024 Thrombocytopenia (IC D-10 - D69.6) She [...] She remains under the care of her fern picker. She is asymptomatic at this time. 11/21/2024 [...] She remains under the care of her fern picker. She is asymptomatic at this time. 04/19/2024 [...] under the care of Dr. Ashford, her wellness coach. She is now on a kidney transplant list and is being prepared for transplantation. Plan Of Treatment Pending Test Test Name Order Date PROFILE, FASTING (COMPREHENSIVE METABOLI C) 10/20/2023 PROFILE, FASTING (COMPREHENSIVE METABOLI C) 08/14/2021 PROFILE, FASTING (COMPREHENSIVE METABOLI C) 10/07/2022 PROFILE, FASTING (COMPREHENSIVE METABOLI C) 04/07/2023 PROFILE, FASTING (COMPREHENSIVE METABOLI C) 10/20/2020 PROFILE, FASTING (COMPREHENSIVE METABOLI C) 04/01/2022 PROFILE, FASTING (COMPREHENSIVE METABOLI C) 12/13/2017 PROFILE, FASTING (COMPREHENSIVE METABOLI C) 11/21/2024 PROFILE, FASTING (COMPREHENSIVE METABOLI C) 04/13/2021 PROFILE, FASTING (COMPREHENSIVE METABOLI C) 11/11/2021 PROFILE, FASTING (COMPREHENSIVE METABOLI C) 01/14/2023 PROFILE, FASTING (COMPREHENSIVE METABOLI C) 08/23/2024 PROFILE, FASTING (COMPREHENSIVE METABOLI C) 04/19/2024 PROFILE, FASTING (COMPREHENSIVE METABOLI C) 01/12/2021 PROFILE, RANDOM (COMPREHENSIVE METABOLIC ) 01/31/2024 LIPID PANEL 01/12/2021 LIPID PANEL 10/07/2022 LIPID PANEL 10/20/2020 LIPID PANEL 04/01/2022 LIPID PANEL 12/13/2017 LIPID PANEL 11/11/2021 LIPID PANEL 01/14/2023 GGT [...] Thyroxine) 04/19/2024 Next Appt Details Provider Name:Meño Jacksonne , 04/22/2025 09:30:00 AM, [address] [place] [address] [address] [place], [place], [address], Insurance Providers Payer Name Payer Address Payer Phone Subscriber Number Group Number Insured Name Patient Relationship to Insured Coverage Start Date Coverage End Date MEDICARE NGS [address] [place] [address] [id number] Jacy Goldberg Self - patient is the insured [facility] [address] [place], [place] [phone] [id number] Jacy Goldberg Self - patient is the insured Medical (General) History Medical History History ICD Code degenerative arthritis of the cervical s pine spine asthma osteoarthritis hemorhoids thrombocytopenia cataracts last bilateral mammogram 12/18/2012 @ [facility] R&I anemia hyperthyroid abnormal renal function Surgical History Surgery Date(Month/Year) No history Basal Cell removed, Left arm 01/10/2023 biopsy on left index finger 09/2018 colonoscopy, wnl 2008 colonoscopy, adenomatous polyp 2003 right cataract surgery 2011 [id number] septum repair tonsillectomy wisdom teeth extraction Hospitalization History Reason Date(Month/Year) No history
[2025-03-26 17:15] LABS: Hematocrit 27.6 % (37.0-47.0); Hemoglobin 8.5 g/dl (12.0-16.0); Imm Gran Abs Auto 0.01 X10*3/uL (0.00-0.03); Imm Gran Pct Auto 0.3 % (0.0-0.4); Lymphocytes Absolute Auto 1.0 X10*3/uL (1.2-4.9); Mean Corpuscular HGB Conc 30.8 g/dl (31.0-35.0); Mean Corpuscular Hemoglobin 30.4 pg (27.0-33.0); Mean Corpuscular Volume 98.6 fL (80.0-98.0); NRBC Abs Auto 0.000 X10*3/uL (0.0-0.012); NRBC Pct Auto 0.0 /100WBC (0.0-0.2); Platelet Count 137 X10*3/uL (160-400); Red Blood Count 2.80 X10*6/uL (4.20-5.50); White Blood Count 3.2 X10*3/uL (4.8-10.8)
[2025-03-26 17:47] LABS: Anion Gap 14 (12-20); Blood Urea Nitrogen 75 mg/dL (9-16); Calcium 8.6 mg/dL (8.4-10.2); Carbon Dioxide 24 mmol/L (22-29); Chloride 112 mmol/L (96-108); Potassium 4.8 mmol/L (3.3-5.1); Sodium 145 mmol/L (135-145)
[2025-03-26 18:34] LABS: Estimated Glomerular Filt Rate 10
== END 2025-03-26 16:03 | disposition home or self-care (01) ==
LOC: HO.LAB 16:02
PROVIDERS: PCP Internal Medicine Medical Oncology; Visit Provider Internal Medicine Nephrology
DX: I15.1 Hypertension secondary to other renal disorders (principal); N25.81 Secondary hyperparathyroidism of renal origin; N18.4 Chronic kidney disease, stage 4 (severe); N39.498 Other specified urinary incontinence; D63.1 Anemia in chronic kidney disease
CPT/HCPCS: 36415; 80051; 82310; 82565; 84520; 85025

== ENCOUNTER 2025-03-29 11:55 | Outpatient (AMB) | payer MEDICARE, SELFPAY ==
--- OUTSIDE RECORDS SUMMARY | 2023-10-06 10:30 | XMS_ITS ---
Author Organization [facility] Address [address] [facility] [place] [address] Care Team Providers Care Resource Manager Forester Name Role Phone Grace BAKER, Meño Primary Care Provider Unavailab London Braswell Unavailable [phone] Vin Quevedo Unavailable [phone] REASON FOR VISIT Seen Sooner Encounters Encounter Location Date Provider Diagnosis [facility] [address] [place] [phone] 10/06/2023 Vin Quevedo Plan Of Treatment No Information Progress Notes * TRIP Jacy SDOB: [birth year] (70 yo F)Acc No.[id number]:10/06/2023 Progress Note Patient: Jacy GARCIA Provider: Migdalia Quevedo DPM :1955 A ge:68 Y S ex:Female Date:10/06/2023 Address:[address] [id number] Pcp:Meño Edwards MD Subjective: * Chief Complaints: [...] Pending * Provider: Migdalia Quevedo DPM Date: 0 10/06/2023 Generated for Printi ng/Fatongg/eTransmitting on: 1 12:55 PM EDT
--- OUTSIDE RECORDS SUMMARY | 2024-08-23 05:30 | XMS_ITS ---
Author Organization Meño Edwards III, MD Address [address] [place] [address] Care Team Providers Care Industrial Truck Driver Name Role Phone Dr. Meño Edwards III [...] Date Provider Diagnosis Meño Edwards III, MD [address] [place] [address] [address], [place] [address] 08/23/2024 Meño Edwards Underweight R63.6 ; CKD [...] list for a kidney transplant by her origination specialist. 08/23/2024 Mild intermittent asthma without complication (ICD-10 - J45.20) She has had no difficulty with asthma lately. She has an inhaler which she has not been using. 08/23/2024 Thrombocytopenia (ICD-10 - D69.6) She has had no bleeding and is avoiding aspirin. 08/23/2024 Thyroiditis (ICD-10 - E06.9) This is not an active problem. She remains under the care of her sustainable systems analyst. She is asymptomatic at this time. 08/23/2024 [...] OV, Routine follow-up Provider Name:Meño Edwards , 04/22/2025 09:30:00 AM, [address] [place] [address] , [address], [place], [address], Progress Notes * Jacy DOMINIQUE SDOB: [birth year] (69 yo F)Acc No.[id number]:08/23/2024 Progress Notes Patient: Jacy GARCIA Provider: Wan Edwards MD :1955 A ge:69 Y S ex:Female Date:08/23/2024 Address:[address] [place] [id number] Subjective: * Chief Complaints: * U nderweightPancytopeniaAsthmaCKDGoutMacular degenerationOn kidney transplant list * HPI: C OVID-19 Screening: moving to [place] dont know when. Questions H ave you [...] her new glasses. She has seen an rehabilitation teacher twice this year for this issue. The [...] w isdom teeth extraction tonsillectomy septum repair [id number] right cataract surgery 2012colonoscopy, adenomatous polyp 2004colonoscopy, [...] S he is single and comes fom [facility]. She has no children. * Medications: T [...] Glomerular Filt Rate 13 15 14 * Lab:[facility] [place]. Pane l Fast * Collection Date 08/21/2024 04/13/2024 [...] list for a kidney transplant by her origination specialist. 2 . U nderweight - R63.6 [...] She remains under the care of her sustainable systems analyst. She is asymptomatic at this time. 6 [...] Edwards MD Date: 0 08/23/2024 Generated for Timothy kennedy/Ngoc/Yogesh on: 1 12:55 PM EDT History and Physical Notes * [...]
--- OUTSIDE RECORDS SUMMARY | 2024-08-31 08:11 | XMS_ITS ---
Author Organization Meño Edwards III, MD Address [address] [place] [address] [place] [address] Care Team Providers Care Spud Grader Name Role Phone Dr. Meño Edwards III Primary Care Provider [phone] REASON FOR VISIT Rx Refill Medications Medication SIG (Take, Route, Frequency, Duration) Notes Start Date End Date Status amLODIPine Besylate 5 MG 1 tablet Orally Once a day for 30 days Active Social History Sex Assigned At : Social History Observation Description Sex Assigned At Female Encounters Encounter Location Date Provider Diagnosis Meño Edwards III, MD [address] [place] [address] [place] [address] 08/31/2024 Meño Edwards Plan Of Treatment Medication Medication Name Sig Start Date Stop Date Notes amLODIPine Besylate 5 MG 1 tablet Orally Once a day for 30 days Next Appt Details Provider Name:Meño Edwards , 04/22/2025 09:30:00 AM, [address] [place] [address] [place], [address], Progress Notes * Jacy DOMINIQUE SDOB: [birth year] (69 yo F)Acc No.[id number]:08/31/2024 Patient: Jacy GARCIA :1955 A ge:69 Y S ex:Female Address:[address] [place] [address] * Refills Refill amLODIPine Besylate Tablet, 5 MG, Orally, 30 Tablet, 1 tablet, Once a day, 30 days, Refills=11 * true * Date: Generated for Timothy kennedy/Ngoc/Yogesh on: 12:54 PM EDT
--- OUTSIDE RECORDS SUMMARY | 2024-11-21 05:30 | XMS_ITS ---
Author Organization Meño Edwards III, MD Address [address] [place] [address] Care Team Providers Care Meat Trimmer Name Role Phone Dr. Meño Edwards III Primary Care Provider [phone] Allergies Allergen (clinical drug ingredient) Drug/Non Drug [...] Provider Diagnosis Meño Edwards III, MD [address] [place] [address] [address], [place] [address] 11/21/2024 Meño Edwards Underweight R63.6 ; Pancytopenia [...] She remains under the care of her operations leader. She is asymptomatic at this time. 11/21/2024 [...] under the care of Dr. Ashford, her cop breaker. She is now on a kidney transplant [...] Provider Name:Meño Edwards , 04/22/2025 09:30:00 AM, [address] [place] [address] [address], [place], [place], [address], Progress Notes * Jacy DOMINIQUE SDOB: [birth year] (69 yo F)Acc No.[id number]:11/21/2024 Progress Notes Patient: Aidee ADAMJacy COTTRELL Provider: [...] today. She is going to see her cop breaker next week and will have blood work [...] w isdom teeth extraction tonsillectomy septum repair [id number] right cataract surgery 2012colonoscopy, adenomatous polyp 2004colonoscopy, [...] She remains under the care of her operations leader. She is asymptomatic at this time. 7 [...] under the care of Dr. Ashford, her cop breaker. She is now on a kidney transplant [...] 0 11/21/2024 Generated for Timothy kennedy/Ngoc/eTalexsmitting on: 12:54 PM EDT History and Physical Notes * [...]
--- OUTSIDE RECORDS SUMMARY | 2025-01-11 05:59 | XMS_ITS ---
Author Organization Meño Edwards III, MD Address [address] [place] [address] [place] [address] Care Team Providers Care Animal Care Giver Name Role Phone Dr. Meño Edwards III Primary Care Provider REASON FOR VISIT Rx Request Social History Sex Assigned At : Social History Observation Description Sex Assigned At Female Encounters Encounter Location Date Provider Diagnosis Meño Edwards III, MD [address] [place] [address] [place] [address] 01/11/2025 Meño Edwards Plan Of Treatment Next Appt Details Provider Name:Meño Edwards , 04/22/2025 09:30:00 AM, [address] [place] [address] [place], [address], Progress Notes * Jacy DOMINIQUE SDOB: [birth year] (69 yo F)Acc No.[id number]:01/11/2025 Patient: Jacy GARCIA :1955 A ge:69 Y S ex:Female Address:[place] [address] * true * Date: Generated for Printi ng/Faxing/eTransmitting on: 12:54 PM EDT
--- OUTSIDE RECORDS SUMMARY | 2025-01-11 07:51 | XMS_ITS ---
Author Organization Meño Edwards III, MD Address [address] [place] [address] [place] [address] Care Team Providers Care Recycle Worker Name Role Phone Dr. Meño Edwards [...] Date Provider Diagnosis Meño Edwards III, MD [address] [place] [address] [place] [address] 01/11/2025 Meño Edwards Plan Of Treatment Medication Medication Name Sig Start Date Stop Date Notes Amoxicillin-Pot Clavulanate 875-125 MG 1 tablet Orally every 12 hrs for 7 days 01/11/2025 01/18/2025 Next Appt Details Provider Name:Meño Edwards , 04/22/2025 09:30:00 AM, [address] [place] [address] [place], [address], Progress Notes * Jacy DOMINIQUE SDOB: [birth year] (69 yo F)Acc No.[id number]:01/11/2025 Patient: Aidee Jacy COFFMAN :1955 A ge:69 Y S ex:Female Address:[address] [place] [address] * Refills Start Amoxicillin-Pot Clavulanate Tablet, 875-125 MG, Orally, 14 Tablet, 1 tablet, every 12 hrs, 7 days, Refills=0 * true * Date: Generated for Timothy kennedy/Ngoc/Yogesh on: 1 12:54 PM EDT
--- NOTE | 2025-03-29 12:02 | HO.NEPHOV_ITS ---
Vital Signs 03/29/25 12:03 Height 5 ft 4 in Weight 108 lb BMI 18.5 BP 140/50 H Blood Pressure Location Rt brachial Position Sitting Pulse 56 Pulse Source Pulse Oximeter Pulse Oximetry (%) 98 Oxygen Delivery Method Room Air Intake Visit Reasons: 1mon f/u w/labs-LVM Women Specialist Required: No Accompanied by: Self / Same As Patient Allergies No Known Allergies Allergy (Verified 03/29/25 12:03) HPI Comments Details: Jacy was seen in follow-up of her hypertension and advanced chronic kidney disease. She has not had any flare up of gout on her left foot. She is tolerating Allopurinol . She denies any uremic symptoms. She has not taken any nonsteroidal anti-inflammatories. Her blood pressure control is optimal. Her Amlodipine has been cut back due to edema. She maintains good hydration. She denies chest pain, shortness of breath, paroxysmal nocturnal dyspnea, orthopnea or urinary symptoms. Her last 24 hour urine collection showed a GFR close to 18 mls/minute. Her serum creatinine marginally worse . She had hyperkalemia and getting treatment for it. She has been having hairloss and has been having dizziness when she gets URI. She has been having intermittent incontinence issues. She is listed for renal transplant in [facility] Medical History (Updated 03/01/25 @ 11:23 by Marquise Ashford MD) Degenerative arthritis of cervical spine Osteoarthritis Hypothyroidism Anemia Thrombocytopenia Chronic kidney disease DDD (degenerative disc disease) Rotator cuff arthropathy of right shoulder Neck pain Low back pain Single kidney Environmental allergies Asthma Surgical History Hx of nasal septoplasty History of tonsillectomy and adenoidectomy Hx of colonoscopy Hx of bilateral cataract extraction Social History Alcohol intake: current Alcohol intake frequency: holidays/special occasions only Review of Systems Const All systems reviewed & are unremarkable except as noted in HPI and below Physical Exam Vital Signs: Last Vital Signs Pulse 56 03/29/25 12:03 BP 140/50 H 03/29/25 12:03 Pulse Ox 98 03/29/25 12:03 Oxygen Delivery Method Room Air 03/29/25 12:03 BMI result Body Mass Index 18.5 Const General: comfortable and no acute distress Orientation/consciousness: patient oriented x3 HEENT Head: Yes normocephalic Mouth: Normal oral and palatal mucosa present Eyes EOM: EOMs intact bilaterally Neck Neck: Yes supple Resp Auscultation: clear to auscultation bilaterally Cardio Jugular venous distension: no JVD Rate: regular rate GI Palpation (GI): Soft to palpation Auscultation: normal bowel sounds General: Yes no CVA tenderness Back/Spine/Pelvis Back: no CVA tenderness Skin General skin exam: no rashes or lesions noted Neuro General: patient oriented x3 and moves all extremities Extrem General: Yes no pedal edema Office Meds epoetin darryl-epbx 10,000 unit/mL injection solution Performing Provider: Marquise Ashford MD Performing Location: [facility] Administered by: Marquise Ashford MD on 03/29/25 12:10 Dose Route Admin Location Dispensed Lot Number Expiration Date [facility] Consulting Practice Manager 40,000 unit subcut LUE 4 mL [id number] 07/28/26 5243-2633-58 [employer] Total Dispensed Waste 4 mL 0 % Results Reviewed Nephrology Results: Hgb, (12.0-16.0) 8.5 g/dl L 03/26/25 WBC, (4.8-10.8) 3.2 X10*3/uL L 03/26/25 Plt Count, (160-400) 137 X10*3/uL L 03/26/25 Sodium, (135-145) 145 mmol/L 03/26/25 Potassium, (3.3-5.1) 4.8 mmol/L 03/26/25 Chloride, (96-108) 112 mmol/L H 03/26/25 Carbon Dioxide, (22-29) 24 mmol/L 03/26/25 BUN, (9-16) 75 mg/dL H 03/26/25 Creatinine, (0.5-1.4) 4.52 mg/dL H* 03/26/25 Calcium, (8.4-10.2) 8.6 mg/dL 03/26/25 Phosphorus, (2.7-4.5) 4.7 mg/dL H 01/21/25 PTH Intact, (8.7-77.1) 188.2 pg/mL H 01/21/25 Assessment & Plan Assessment & Plan (1) Anemia in chronic kidney disease: Code(s): N18.9 - Chronic kidney disease, unspecified; D63.1 - Anemia in chronic kidney disease Category: Medical Qualifiers: Chronic kidney disease stage: stage 4 (GFR 15-29) Qualified Code(s): N18.4 - Chronic kidney disease, stage 4 (severe); D63.1 - Anemia in chronic kidney disease (2) CKD (chronic kidney disease) stage 4, GFR 15-29 ml/min: Code(s): N18.4 - Chronic kidney disease, stage 4 (severe) Category: Medical (3) Hypertension: Code(s): I10 - Essential (primary) hypertension Category: Medical Qualifiers: Hypertension type: secondary to other renal disorders Qualified Code(s): I15.1 - Hypertension secondary to other renal disorders (4) Secondary hyperparathyroidism (of renal origin): Code(s): N25.81 - Secondary hyperparathyroidism of renal origin Category: Medical Plan Jacy has left atrophic kidney. She has progressive renal dysfunction or many years. Her serum creatinine is stable. Her last cr cl was close to 18 mls/mt . She does not have any uremic symptoms. Her blood pressure is at goal at home . She can continue current dose of amlodipine & allopurinol daily. She maintains good hydration. She avoids nonsteroidal anti-inflammatories. I discussed with her regarding options of renal replacement therapy. She is listed for t ransplantation in [facility] . I have given her [id number] U of Procrit in the office today. All her questions during this visit were answered. Follow-up appointment given Orders: Orders AMB Epoetin Injection Practice Supplied Today D63.1 - Anemia in chronic kidney disease, N18.4 - Chronic kidney disease, stage 4 (severe) Complete Blood Count Auto Diff 4 Weeks D63.1 - Anemia in chronic kidney disease, I15.1 - Hypertension secondary to other renal disorders, N18.4 - Chr onic kidney disease, stage 4 (severe), N25.81 - Secondary hyperparathyroidism of renal origin Calcium 4 Weeks D63.1 - Anemia in chronic kidney disease, I15.1 - Hypertension secondary to other renal disorders, N18.4 - Chronic kidney disease, stage 4 (severe), N25.81 - Secondary hyperparathyroidism of renal origin Creatinine 4 Weeks D63.1 - Anemia in chronic kidney disease, I15.1 - Hypertension secondary to other renal disorders, N18.4 - Chronic kidney disease, stage 4 (severe), N25.81 - Secondary hyperparathyroidism of renal origin Blood Urea Nitrogen 4 Weeks D63.1 - Anemia in chronic kidney disease, I15.1 - Hypertension secondary to other renal disorders, N18.4 - Chronic kidney disease, stage 4 (severe), N25.81 - Secondary hyperparathyroidism of renal origin Electrolytes 4 Weeks D63.1 - Anemia in chronic kidney disease, I15.1 - Hypertension secondary to other renal disorders, N18.4 - Chronic kidney disease, stage 4 (severe), N25.81 - Secondary hyperparathyroidism of renal origin Coding Level of Care Code Est Pt Level 4 (26439) Diagnoses Anemia in stage 4 chronic kidney disease N18.4; D63.1 Chronic kidney disease stage: stage 4 (GFR 15-29) CKD (chronic kidney disease) stage 4, GFR 15-29 ml/min N18.4 Hypertension secondary to other renal disorders I15.1 Hypertension type: secondary to other renal disorders Secondary hyperparathyroidism (of renal origin) N25.81
[2025-03-29 12:03] VITALS: BP 140/50; PULSE 56; O2SAT 98; BMI 18.5
--- OUTSIDE RECORDS SUMMARY | 2025-03-29 12:54 | XMS_ITS | Continuity of Care Document ---
Author Organization [facility] Address [address] [place] [address] Phone [phone] Social History Type Date Description Comments Sex Female Sex Unknown Medical Devices Description No Information Available Encounters Description No Information Available Assessments Description No Information Available Plan of Treatment No Information Available Functional Status Description No Information Available Mental Status Description No Information Available Referrals Description No Information Available
--- OUTSIDE RECORDS SUMMARY | 2025-03-29 12:54 | XMS_ITS | Patient Health Record ---
Author Organization [facility] Address [address] [place] [address] Care Team Providers Care Monument Mason Name Role Phone Meño Edwards MD Primary Care Provider London Quijano Unavailable [phone] Allergies Allergen (clinical drug ingredient) Drug/Non Drug [...] Date Coverage End Date Medicare National Govt [employer] [facility] [address] [place] [address] [id number] Jacy Goldberg Self - patient is the insured [employer] [address] [place] [address] [phone] [id number] Jacy Goldberg Self - patient is the insured Medical (General) History Medical History History ICD Code asthma Back pain CAD (Cholesterol) Cataracts Measles Mumps Kidney disease chronic sinusitis Warts Surgical History Surgery Date(Month/Year) tonsillectomy and adenoidectomy wisdom teeth extraction 1971 cataract surgery 10/28/2015 deviated septum repair 1976
--- OUTSIDE RECORDS SUMMARY | 2025-03-29 12:55 | XMS_ITS | Clinical Summary ---
Author Organization [facility] Address [address] [place] [address] Phone Care Team Providers Care Acetone Button Paster Name Role Phone Meño Edwards MD Primary Care Provider [phone] Allergies Active Allergy Reactions Criticality Noted Date [...] patient's age to complete this topic Insurance [facility] Medicare [facility] Medicare Care Teams Acetone Button Paster Relationship Specialty Start Date End Date Meño Edwards MD [address] [place] [address] [address] [place], [place] PCP - General 07/07/20
--- OUTSIDE RECORDS SUMMARY | 2025-03-29 12:55 | XMS_ITS | Patient Health Record ---
Author Organization [facility] Address [address] [place] [address] Care Team Providers Care Beef Splitter Name Role Phone Meño Edwards MD Primary Care Provider UnavailFady Monk Jr Unavailable [phone] Allergies Allergen (clinical drug ingredient) Drug/Non Drug [...] Problem Status W/U Status Risk Notes Problem 717398159 Colon cancer screening (V76.51) Active confirmed Problem 896434247 Colon cancer screening (Z12.11) Active confirmed Problem 245994129 Personal history of colonic polyps (Z86.010) Active confirmed Problem 546759815 Long-term curren t use of high risk medication other than anticoagulant (Z79.899) Active confirmed Plan Of Treatment Future Test Test Name Order Date COLONOSCOPY 04/01/2014 COLONOSCOPY 07/28/2020 Insurance Providers Payer Name Payer Address Payer Phone Subscriber Number Group Number Insured Name Patient Relationship to Insured Coverage Start Date Coverage End Date MEDICARE OF [place] [address] LACHEL[place] COTTON [address] [id number] MENA DOMINIQUE Self - patient is the insured [employer] CLAIMS [address] [place] [address] [id number] MENA DOMINIQUE Self - patient is the [...]
--- OUTSIDE RECORDS SUMMARY | 2025-03-29 12:55 | XMS_ITS | Clinical Summary ---
Author Organization [facility] Address [address] [place] [address] Care Team Providers Care Academic Coach Name Role Phone Unavailable Primary Care Provider [...]
--- OUTSIDE RECORDS SUMMARY | 2025-03-29 12:55 | XMS_ITS | Patient Health Record ---
Author Organization Meño Edwards III, MD Address [address] [place] [address] Care Team Providers Care Technical Staff Engineer Name Role Phone Dr. Meño Edwards III Primary Care Provider [phone] Allergies Allergen (clinical drug ingredient) Drug/Non Drug [...] ff Reviewed date:04/15/2024 07:27:15 AM Interpretation: Performing Lab:[facility], [address] [place] [phone] Notes/Report: White Blood Count 4.2 4.8-10.8 X10*3/uL [...] NRBC Abs Auto 0.000 0.0-0.012 X10*3/uL Comprehensive Eagar. Panel Fa st Reviewed date:04/15/2024 07:27:15 AM Interpretation: Performing Lab:[facility], [address] [place] [phone] Notes/Report: Sodium 143 135-145 mmol/L Potassium 4.8 3.3-5.1 mmol/L Chloride 109 96-108 mmol/L Carbon Dioxide 26 22-29 mmol/L Anion Gap 13 12-20 Blood Urea Nitrogen 84 9-16 mg/dL Creatinine 3.13 0.5-1.4 mg/dL Estimated Glomerular Filt Rate 15 NOTE: For -Y[place] individuals, multiply the result by 1.210. Chronic [...] Panel Reviewed date:04/15/2024 07:27:15 AM Interpretation: Performing Lab:[facility], [address] [place] [phone] Notes/Report: Triglycerides 95 <150 mg/dL Desirable Triglyceride: [...] Electrolytes Reviewed date:06/04/2024 05:33:48 AM Interpretation: Performing Lab:[facility], [address] [place] [phone] Notes/Report: Sodium 142 135-145 mmol/L Potassium 5.1 3.3-5.1 mmol/L Chloride 107 96-108 mmol/L Carbon Dioxide 29 22-29 mmol/L Anion Gap 11 12-20 Blood Urea Nitrogen Reviewed date:06/04/2024 05:33:48 AM Interpretation: Performing Lab:[facility], [address] [place] [phone] Notes/Report: Blood Urea Nitrogen 80 9-16 mg/dL Creatinine Reviewed date:06/04/2024 05:33:48 AM Interpretation: Performing Lab:[facility], [address] [place] [phone] Notes/Report: Creatinine 3.57 0.5-1.4 mg/dL Estimated Glomerular Filt Rate 13 Chronic Kidney Disease: Estimated GFR < 60 mL/min/1.73m2 Severe Kidney Disease: Estimated GFR < 15 mL/min/1.73m2 Complete Blood Count Auto Di ff Reviewed date:08/25/2024 06:24:46 PM Interpretation: Performing Lab:[facility], [address] [place] [phone] Notes/Report: White Blood Count 4.5 4.8-10.8 X10*3/uL [...] NRBC Abs Auto 0.000 0.0-0.012 X10*3/uL Comprehensive Eagar. Panel Fa st Reviewed date:08/25/2024 06:24:46 PM Interpretation: Performing Lab:[facility], [address] [place] [phone] Notes/Report: Sodium 143 135-145 mmol/L Potassium 5.4 [...] Panel Reviewed date:08/25/2024 06:24:46 PM Interpretation: Performing Lab:[address] [phone] Notes/Report: Triglycerides 125 <150 mg/dL Desirable Triglyceride: [...] Thyroxine) Reviewed date:08/25/2024 06:24:46 PM Interpretation: Performing Lab:[address] [address] Notes/Report: Free T4 (Free Thyroxine) 0.93 0.71-1.85 ng/dL Thyroid Stimulating Hormone Reviewed date:08/25/2024 06:24:47 PM Interpretation: Performing Lab:[facility], [address] [place] [phone] Notes/Report: Thyroid Stimulating Hormone 4.83 0.32-4.0 uIU/mL Note: A sustained TSH level above 2.5 uIU/mL may warrant further investigation. TSH 3rd Generation ([facility]) Complete Blood Count Auto Di ff Reviewed date:09/09/2024 10:16:33 AM Interpretation: Performing Lab:[facility], [address] [place] [phone] Notes/Report: White Blood Count 4.3 4.8-10.8 X10*3/uL [...] Electrolytes Reviewed date:09/09/2024 10:16:33 AM Interpretation: Performing Lab:[facility], [address] [place] [phone] Notes/Report: Sodium 141 135-145 mmol/L Potassium 5.4 3.3-5.1 mmol/L Chloride 112 96-108 mmol/L Carbon Dioxide 20 22-29 mmol/L Anion Gap 14 12-20 Blood Urea Nitrogen Reviewed date:09/09/2024 10:16:33 AM Interpretation: Performing Lab:[facility], [address] [place] [phone] Notes/Report: Blood Urea Nitrogen 99 9-16 mg/dL Creatinine Reviewed date:09/09/2024 10:16:33 AM Interpretation: Performing Lab:[facility], [address] [place] [phone] Notes/Report: Creatinine 3.45 0.5-1.4 mg/dL Estimated Glomerular Filt Rate 13 Chronic Kidney Disease: Estimated GFR < 60 mL/min/1.73m2 Severe Kidney Disease: Estimated GFR < 15 mL/min/1.73m2 Calcium Reviewed date:09/09/2024 10:16:33 AM Interpretation: Performing Lab:[facility], [address] [place] [phone] Notes/Report: Calcium 9.0 8.4-10.2 mg/dL IRON PROFILE Reviewed date:09/09/2024 10:16:33 AM Interpretation: Performing Lab:[facility], [address] [place] [phone] Notes/Report: Iron 85 30-160 mcg/dL Total Iron Binding Capacity 344 228-428 mcg/dL Percent Iron Saturation 25 15-50 % Unsaturated Iron Binding 259 Ferritin Reviewed date:09/09/2024 10:16:33 AM Interpretation: Performing Lab:[facility], [address] [place] [phone] Notes/Report: Ferritin 50 10-250 ng/mL Vitamin D 25-OH Total Reviewed date:09/09/2024 10:16:33 AM Interpretation: Performing Lab:[facility], [address] [place] [phone] Notes/Report: Vitamin D 25-OH Total 37.3 >30 [...] Intact Reviewed date:09/09/2024 10:16:33 AM Interpretation: Performing Lab:[facility], [address] [place] [phone] Notes/Report: Parathyroid Hormone Intact 289.2 8.7-77.1 pg/mL MM tomosynthesis screening B I Reviewed date:10/05/2024 08:33:40 PM Interpretation: Performing Lab: Notes/Report: [address] [place] [id number] Mammography Report Signed Patient: Jacy Goldberg MR#: [id number] : 1955 Acct:[id number] Age/Sex: 69 / F ADM Date: 09/24/24 Loc: HO.MAMMO Attending Dr: Meño Edwards MD Ordering Physician: Meño Edwards MD Results: 2Benign Findings Date of Service: 09/24/24 Follow Up: 1 Year From [facility] Mammogram Procedure(s): MM tomosynthesis screening BI Accession Number(s): [id number] cc: Meño Edwards MD EXAMINATION: MM SCREENING [...] 09/29/24 1733 DD/ 9 TD/TT: 09/24/24 0852 [employer]: [facility]'[address] [place] [address] Mammography Report Signed Patient: Shubham Goldberg MR#: [id number] : 1955 Acct:[id number] Age/Sex: 69 / F ADM Date: 09/24/24 Loc: HO.MAMMO Attending Dr: Meño Edwards MD Ordering Physician: Meño Edwards MD Results: 2Benign Findings Date of Service: 09/24/24 Follow Up: 1 Year From [facility] Mammogram Procedure(s): MM tomosynthesis screening BI Accession Number(s): [id number] cc: Meño Edwards MD EXAMINATION: MM SCREENING [...] OV> 09/29/24 1733 DD/ TD/TT: 09/24/24 0852 [employer]: Complete Blood Count Auto Di ff Reviewed date:02/27/2025 04:48:33 AM Interpretation: Performing Lab:[facility], [address] [place] [phone] Notes/Report: White Blood Count 5.4 4.8-10.8 X10*3/uL [...] Electrolytes Reviewed date:02/27/2025 04:48:33 AM Interpretation: Performing Lab:[facility], [address] [place] [phone] Notes/Report: Sodium 138 135-145 mmol/L Potassium 5.4 3.3-5.1 mmol/L Chloride 103 96-108 mmol/L Carbon Dioxide 26 22-29 mmol/L Anion Gap 14 12-20 Blood Urea Nitrogen Reviewed date:02/27/2025 04:48:33 AM Interpretation: Performing Lab:[facility], [address] [place] [phone] Notes/Report: Blood Urea Nitrogen 70 9-16 mg/dL Creatinine Reviewed date:02/27/2025 04:48:33 AM Interpretation: Performing Lab:[facility], [address] [place] [phone] Notes/Report: Creatinine 3.67 0.5-1.4 mg/dL Estimated Glomerular Filt Rate 12 Chronic Kidney Disease: Estimated GFR < 60 mL/min/1.73m2 Severe Kidney Disease: Estimated GFR < 15 mL/min/1.73m2 Calcium Reviewed date:02/27/2025 04:48:33 AM Interpretation: Performing Lab:[facility], [address] [place] [phone] Notes/Report: Calcium 9.1 8.4-10.2 mg/dL Complete Blood Count Auto Di ff (Not yet reviewed by provider) Interpretation: Performing Lab:[address] [address] Notes/Report: White Blood Count 3.2 4.8-10.8 X10*3/uL Red Blood Count 2.80 4.20-5.50 X10*6/uL Hemoglobin 8.5 12.0-16.0 g/dl Hematocrit 27.6 37.0-47.0 % Mean Corpuscular Volume 98.6 80.0-98.0 fL Mean Corpuscular Hemoglobin 30.4 27.0-33.0 pg Mean Corpuscular HGB Conc 30.8 31.0-35.0 g/dl Red Cell Distribution Width 13.6 11.0-16.0 % Platelet Count 137 160-400 X10*3/uL Mean Platelet Volume 11.8 9.4-12.3 fL Neutrophils Percent Auto 53.0 45-73 % Imm Gran Pct Auto 0.3 0.0-0.4 % Lymphocytes Percent Auto 30.5 20-40 % Monocytes Percent Auto 11.5 2-11 % Eosinophils Percent Auto 4.4 0-4 % Basophils Percent Auto 0.3 0-2 % NRBC Pct Auto 0.0 0.0-0.2 /100WBC Neutrophils Absolute Auto 1.7 2.0-8.3 x10*3/uL Imm Gran Abs Auto 0.01 0.00-0.03 X10*3/uL Lymphocytes Absolute Auto 1.0 1.2-4.9 X10*3/uL Monocytes Absolute Auto 0.4 0.1-1.2 X10*3/uL Eosinophils Absolute Auto 0.1 0.0-0.4 X10*3/uL Basophils Absolute Auto 0.0 0.0-0.2 X10*3/uL NRBC Abs Auto 0.000 0.0-0.012 X10*3/uL Electrolytes (Not yet review ed by provider) Interpretation: Performing Lab:[address] [address] Notes/Report: Sodium 145 135-145 mmol/L Potassium 4.8 3.3-5.1 mmol/L Chloride 112 96-108 mmol/L Carbon Dioxide 24 22-29 mmol/L Anion Gap 14 12-20 Blood Urea Nitrogen (Not ye t reviewed by provider) Interpretation: Performing Lab:[address] [address] Notes/Report: Blood Urea Nitrogen 75 9-16 mg/dL Creatinine (Not yet reviewed by provider) Interpretation: Performing Lab:[address] [address] Notes/Report: Creatinine 4.52 0.5-1.4 mg/dL Critical value for test(s): CREA Results called to and read back by: DR. ZURITA Person calling: [email or web address] Date: 03-26-25 Time: 1833 Estimated Glomerular Filt Rate 10 Chronic Kidney Disease: Estimated GFR < 60 mL/min/1.73m2 Severe Kidney Disease: Estimated GFR < 15 mL/min/1.73m2 Calcium (Not yet reviewed by provider) Interpretation: Performing Lab:[facility], [address] [place] [phone] Notes/Report: Calcium 8.6 8.4-10.2 mg/dL Reason For Referral No Information [...] Problem Status W/U Status Risk Notes Problem 309004032 Underweight (R63.6) Active confirmed Her weight has been stable lately with a body mass index of 18. Problem 689699965 Pancytopenia (D61.818) Active confirmed All 3 cell line s have been diminished. This is likely due to her chronic renal failure. The mean cell volume remains slightly elevated. It is being observed carefully. Problem 608981063 Skin cancer (C44.90) Active confirmed he recently had a basal cell carcinoma removed from the right side of her face and her left arm. There was no sign of residual disease today. Problem Hyperlipidemia (60776221) Hyperlipidemia, unspecified (E78.5) Active confirmed her lipids have been stable. No blood work is available today. A fasting lipid profile has been ordered. No change was made in her regimen. Problem Uncomplicated asthma (disorder) (913912659) Unspecified asthma, uncomplicated (J45.909) Active confirmed She has had no episodes of asthma recently. Problem 060567366 Mild intermittent asthma without complication (J45.20) Active confirmed She has had no difficulty with asthma lately. She has an inhaler which she has not been using. Problem 47782695 Cataracts, bilateral (H26.9) Active confirmed She will continue to see the debone processing supervisor to resolved these problems. Problem Osteoporosis (56404364) Osteoporosis (M81.0) Active confirmed She has been compliant with his therapy. It was reviewed with her today. Problem 587142856 Osteoarthritis (M19.90) Active confirmed She will continue on current therapy at this time. She will avoid NSAIDs. Problem 42215272 Thyroiditis (E06.9) Active confirmed This is not an active problem. She remains under the care of her coordinator cardiopulmonary services. She is asymptomatic at this time. Problem Hypercholesterole brian (91257593) Hypercholestero lemia (E78.00) Active confirmed Comprehensive blood work with a fasting lipid profile is being done periodically. No change in her medication was made today. Her lipids have been controlled. Problem 343675339 Macular degeneration of both eyes, unspecified type (H35.30) Active confirmed Her vision has not changed since her last visit. She really remains under the care of the ophthalmologists . Problem Chronic kidney disease stage 3A (disorder) (093396118) Chronic kidney disease, stage 3a (N18.31) Active confirmed Her BUN is 70.The creatinine is 2.96. She is up-to-date with nephrology and continues on therapy without fail. Problem 90685425 Acute idiopathic gout involving toe of left [...] Provider Diagnosis Meño Edwards III, MD [address] [place] [address] [place] [address] 04/19/2024 Meño Edwards Hyperlipidemia, unsp ecified E78.5 ; CKD (chronic kidney disease) stage 3, GFR 30-59 ml/min N18.3 ; Pancytopenia D61.818 ; H/O hyperthyroidism Z86.39 ; Hypercholesterolemia E78.00 ; Neutropenia D70.9 ; Underweight R63.6 ; Mild intermittent asthma without complication J45.20 and Acute idiopathic gout involving toe of left foot M10.072 Meño Edwards III, MD [address] [place] [address] [place] [address] 08/23/2024 Meño Edwards Underweight R63.6 ; CKD (chronic kidney disease) stage 3, GFR 30-59 ml/min N18.3 ; Mild intermittent asthma without complication J45.20 ; Thrombocytopenia D69.6 ; Thyroiditis E06.9 and Osteoporosis M81.0 Meño Edwards III, MD [address] [place] [address] [place] [address] 11/21/2024 Meño Edwards Underweight R63.6 ; Pancytopenia D61.818 ; Mild intermittent asthma without complication J45.20 ; Osteoarthritis M19.90 ; Osteoporosis M81.0 ; Thyroiditis E06.9 ; Hyperlipidemia, unspecified E78.5 ; Unspecified asthma, uncomplicated J45.909 ; Macular degeneration of both eyes, unspecified type H35.30 ; Skin cancer C44.90 and CKD (chronic kidney disease) stage 3, GFR 30-59 ml/min N18.3 Meño Edwards III, MD [address] [place] [address] [place] [address] 06/14/2024 Meño Edwards III, MD [address] [place] [address] [place] [address] 08/31/2024 Meño Edwards III, MD [address] [place] [address] [place] [address] 01/11/2025 Meño Edwards III, MD [address] [place] [address] [place] [address] 01/11/2025 Meño Edwards Assessments Encounter Date Diagnosis [...] list for a kidney transplant by her supervisor pipeline maintenance. 11/21/2024 Underweight (ICD-10 - R63.6) Her weight [...] She is under the care of an coordinator cardiopulmonary services. 08/23/2024 Thrombocytopenia (IC D-10 - D69.6) She [...] She remains under the care of her coordinator cardiopulmonary services. She is asymptomatic at this time. 11/21/2024 [...] She remains under the care of her coordinator cardiopulmonary services. She is asymptomatic at this time. 04/19/2024 [...] under the care of Dr. Ashford, her supervisor pipeline maintenance. She is now on a kidney transplant list and is being prepared for transplantation. Plan Of Treatment Pending Test Test Name Order Date PROFILE, FASTING (COMPREHENSIVE METABOLI C) 08/14/2021 PROFILE, FASTING (COMPREHENSIVE METABOLI C) 10/07/2022 PROFILE, FASTING (COMPREHENSIVE METABOLI C) 04/07/2023 PROFILE, FASTING (COMPREHENSIVE METABOLI C) 10/20/2020 PROFILE, FASTING (COMPREHENSIVE METABOLI C) 12/13/2017 PROFILE, [...] DIFF 10/20/2023 CBC WITH AUTO DIFF 01/31/2024 Complete Blood Count Auto Diff Electrolytes 03/26/2025 Blood Urea Nitrogen 03/26/2025 Creatinine 03/26/2025 Uric Acid 11/21/2024 Calcium 03/26/2025 Lipid Panel 08/23/2024 Lipid Panel 10/20/2023 Lipid Panel 08/14/2021 Lipid Panel 04/19/2024 Lipid Panel 04/07/2023 Lipid Panel 04/13/2021 Lipid Panel 11/21/2024 Vitamin D 25-OH Total 11/21/2024 Vitamin D 25-OH Total 04/07/2023 Free T4 (Free Thyroxine) 04/19/2024 Next Appt Details Provider Name:Meño Edwards , 04/22/2025 09:30:00 AM, [address] [place] [address] [address], [place], [address], Insurance Providers Payer Name Payer Address Payer Phone Subscriber Number Group Number Insured Name Patient Relationship to Insured Coverage Start Date Coverage End Date MEDICARE [place] [address] [place] [phone] [id number] Jacy Goldberg Self - patient is the insured [facility] [address] [place], [place] [phone] [id number] Jacy Goldberg Self - patient is the insured Medical (General) History Medical History History ICD Code degenerative arthritis of the cervical s pine spine asthma osteoarthritis hemorhoids thrombocytopenia cataracts last bilateral mammogram 12/18/2012 @ [facility] R&I anemia hyperthyroid abnormal renal function Surgical History Surgery Date(Month/Year) No history Basal Cell removed, Left arm 01/10/2023 biopsy on left index finger 09/2018 colonoscopy, wnl 2008 colonoscopy, adenomatous polyp 2003 right cataract surgery 2011 [id number] septum repair tonsillectomy wisdom teeth extraction Hospitalization History Reason Date(Month/Year) No history
== END 2025-03-29 12:18 | disposition home or self-care (01) ==
PROVIDERS: PCP Internal Medicine Medical Oncology; Visit Provider Internal Medicine Nephrology
DX: N18.4 Chronic kidney disease, stage 4 (severe) (principal); D63.1 Anemia in chronic kidney disease; I15.1 Hypertension secondary to other renal disorders; N25.81 Secondary hyperparathyroidism of renal origin
CPT/HCPCS: 99214

== ENCOUNTER → 2025-03-29 11:55 | Outpatient (BNVA) | payer MEDICARE, SELFPAY | PROVIDERS: PCP Internal Medicine Medical Oncology; Visit Provider Internal Medicine Nephrology | DX: N18.4 Chronic kidney disease, stage 4 (severe) (principal); D63.1 Anemia in chronic kidney disease; I15.1 Hypertension secondary to other renal disorders; N25.81 Secondary hyperparathyroidism of renal origin | CPT/HCPCS: 96372; 99212; Q5106 ==

== ENCOUNTER 2025-04-17 11:42 | Outpatient (REF) | payer MEDICARE, SELFPAY ==
--- OUTSIDE RECORDS SUMMARY | 2024-01-31 05:00 | XMS_ITS ---
Author Organization Meño Edwards III, MD Address [address] [place] [address] Care Team Providers Care Sas Analyst Name Role Phone Dr. Meño Edwards III Primary Care Provider Allergies Allergen (clinical drug ingredient) Drug/Non Drug Allergy documented on EMR Reaction Allergy Type Onset Date Status Seasonale Unknown Drug Allergy Active REASON FOR VISIT Bilateral pedal edema, Chronic renal disease, Asthma, Thyroiditis, Osteoporosis, Underweight Medications Medication SIG (Take, Route, Frequency, Duration) Notes Start Date End Date Status Pulmicort Flexhaler 180 MCG/ACT 2 puffs Inhalation Twice a day October-March Active Triamcinolone Acetonide 0.1 % External Active Atorvastatin Calcium 10 MG 1 tablet Orally Once a day 08/04/2023 Active amLODIPine Besylate 5 MG 1 1/2 tablet Or ally Once a day 08/04/2023 Active Allopurinol 100 MG TAKE 1 TABLET BY MOUTH DAILY Oral Active Calcium + D Active Vitamin E Active ProAir HFA 108 (90 Base) MCG/ACT 2 puffs as needed Inhalation every 4 hrs PRN Active Social History Tobacco Use: Social History Observation Description Date Details (start date - stop date) Never Smoker NA - NA Sex Assigned At : Social History Observation Description Sex Assigned At Female Tobacco Use/Smoking Question Answer Notes Patient is a nonsmoker Additional Findings: Tobacco Non-User Aggressive non-smoker Vital Signs Height 65 in 01/31/2024 Weight 104 lbs 01/31/2024 BMI 17.3 kg/m2 01/31/2024 Encounters Encounter Location Date Provider Diagnosis Meño Edwards III, MD [address] [place] [address] [address], [place] [address] 01/31/2024 Meño Edwards Hyperlipidemia, unsp ecified E78.5 ; Underweight R63.6 ; Pancytopenia D61.818 ; Mild intermittent asthma without complication J45.20 ; Acute idiopathic gout involving toe of left foot M10.072 ; Chronic kidney disease, stage 3a N18.31 ; Osteoporosis M81.0 ; Hypercholesterolemia E78.00 and Peripheral edema R60.0 Assessments Encounter Date Diagnosis (ICD Code) Assessment Notes T reatment Notes Treatment Clinical Notes 01/31/2024 Hyperlipidemia, unspecified (ICD-10 - E78.5) her lipids have been stable. No blood work is available today. A fasting lipid profile has been ordered. No change was made in her regimen. 01/31/2024 Underweight (ICD-10 - R63.6) Her weight has been stable lately with a body mass index of 17. 01/31/2024 Pancytopenia (ICD-10 - D61.818) She continues to have the mild anemia of renal failure but her white blood cell count and platelet count are now normal. 01/31/2024 Mild intermittent as thma without complication (ICD-10 - J45.20) She has had no difficulty with asthma lately. She has an inhaler which she has not been using. 01/31/2024 Acute idiopathic gou t involving toe of left foot (ICD-10 - M10.072) The gout has now resolved and she is on allopurinol. 01/31/2024 Chronic kidney disea se, stage 3a (ICD-10 - N18.31) Her BUN is 70.The creatinine is 2.96. She is up-to-date with nephrology and continues on therapy without fail. 01/31/2024 Osteoporosis (ICD-10 - M81.0) She has been compliant with his therapy. It was reviewed with her today. 01/31/2024 Hypercholesterolemia (ICD-10 - E78.00) Her lipids will be followed carefully. They're barely out of range. 01/31/2024 Peripheral edema (IC D-10 - R60.0) She will continue to hold her amlodipine and use the compression hose and leg elevation. Comprehensive blood work was ordered prior to her decision about diuretics. Plan Of Treatment Medication Medication Name Sig Start Date Stop Date Notes Pulmicort Flexhaler 180 MCG/ACT 2 puffs Inhalation Twice a day October-March Triamcinolone Acetonide 0.1 % External Atorvastatin Calcium 10 MG 1 tablet Oral ly Once a day 08/04/2023 amLODIPine Besylate 5 MG 1 1/2 tablet Or ally Once a day 08/04/2023 Allopurinol 100 MG TAKE 1 TABLET BY AYESHA TH DAILY Oral Calcium + D Vitamin E ProAir HFA 108 (90 Base) MCG/ACT 2 puffs as needed Inhalation every 4 hrs PRN Pending Test Test Name Order Date PROFILE, RANDOM (COMPREHENSIVE METABOLIC ) 01/31/2024 CBC WITH AUTO DIFF 01/31/2024 Next Appt Details Follow Up: 2 - 3 Days, Reaso n: Telehealth Provider Name:Meño Edwarsd , 04/22/2025 09:30:00 AM, [address] [place] [address], [address], [place], [address], Progress Notes * BEVERLEYKELLIJacy SDOB: [birth year] (69 yo F)Acc No.[id number]:01/31/2024 Patient: Jacy Lombardi Provider: Wan Edwards MD :1955 A ge:69 Y S ex:Female Date:01/31/2024 Address:[address] [place] [id number] Subjective: * Chief Complaints: * B ilateral pedal edemaChronic renal diseaseAsthmaThyroiditisOsteoporosisUnderweight * HPI: * : This telehealth visit took place over 15 min. with the patient at home and me in my office. She gave consent for billing. This was a followup for the last visit when she presented with pitting edema of both feet. She has known chronic renal disease. She has had a conservative trial of stockings and leg elevation. Conference blood work ordered today with a followup visit at the end of the week. The diuretic medically necessary. Her amlodipine has been to hold for 2 weeks. Telehealth L ocation of provider rendering services: { ...} [address] [place] [address] [address] [facility] [address] L ocation of patient: sintia scott listed in demographics for today's visit P atient identification confirmed using: VILMA Easley ame T elehealth method: T elephone only. Patient not visible to care provider. C onsent: P atient verbally consented to treatment, Patient verbally consented to billing insurance company, Patient informed of any privacy concerns related to method of visit T otal time spent with patient (mins) 1 5 * ROS: G eneral/Constitutional: pain o nly normal aches and pains. C hills d enies.?Fatigue a dmits. F ever d enies. E NT: Decreased hearing d enies. R espiratory: Cough d enies. C ardiovascular: Chest pain with exertion d enies. D yspnea on exertion?denies. S hortness of breath d enies. G astrointestinal: Constipation o ccasional. D ecreased appetite d enies. D iarrhea d enies. H eartburn d enies. N ausea d enies. R ectal bleeding d enies. V omiting d enies. H ematology: bruising d enies. p etechiae d enies. S wollen glands n one have been noted. G enitourinary: Frequent urination a small amount. M usculoskeletal: Muscle aches d enies. P ainful joints d enies. S ciatica d enies. W eakness d enies. S kin: Itching d enies. R janine d enies. S kin lesion(s)?denies. N eurologic: Difficulty speaking d enies. D izziness d enies.?Headache d enies. L ow back pain d enies. P sychiatric: Depressed mood d enies. * Medical History: * Surgical History: w isdom teeth extraction tonsillectomy septum repair [id number] right cataract surgery 2011colonoscopy, adenomatous polyp 2004colonoscopy, wnl 2009biopsy on left index finger 09/2018Basal Cell removed, Left arm 01/10/2023 * Hospitalization/Major Diagno stic Procedure: * Family History: F ather: 95 yrs, hyperlipidemia, hypertension, diagnosed with Hyperlipidemia, HTN, Cancer. M other: 75 yrs, liver cancer, adult onset diabetes mellitus, diagnosed with Cancer, DM. S pouse: alive. 1 brother(s) . . She has no children. A brother at [age] year old. She is not aware of any family history of mental illness or addiction or substance use disorder. * Social History: T obacco Use: T obacco Use/Smoking P atient is a n onsmoker A dditional Findings: Tobacco Non-User A ggressive non-smoker S he is single and comes fom [facility]. She has no children. * Medications: T akingPulmicort Flexhaler 180 MCG/ACT Aerosol Powder Breath Activated 2 puffs Inhalation Twice a day, Notes: October-MarchProAir HFA 108 (90 Base) MCG/ACT Aerosol Solution 2 puffs as needed Inhalation every 4 hrs, Notes: PRNVitamin E Calcium + D Allopurinol 100 MG Tablet TAKE 1 TABLET BY MOUTH DAILY Oral amLODIPine Besylate 5 MG Tablet 1 1/2 tablet Orally Once a dayAtorvastatin Calcium 10 MG Tablet 1 tablet Orally Once a dayTriamcinolone Acetonide 0.1 % Cream External Medication List reviewed and reconciled with the patientTaking Pulmicort Flexhaler 180 MCG/ACT Aerosol Powder Breath Activated 2 puffs Inhalation Twice a day, Notes: October-MarchTaking ProAir HFA 108 (90 Base) MCG/ACT Aerosol Solution 2 puffs as needed Inhalation every 4 hrs, Notes: PRNTaking Vitamin E Taking Calcium + D Taking Allopurinol 100 MG Tablet TAKE 1 TABLET BY MOUTH DAILY Oral Taking amLODIPine Besylate 5 MG Tablet 1 1/2 tablet Orally Once a dayTaking Atorvastatin Calcium 10 MG Tablet 1 tablet Orally Once a dayTaking Triamcinolone Acetonide 0.1 % Cream External Medication List reviewed and reconciled with the patient * Allergies: S divya[Allergies Verified] Objective: * Vitals: H t: 65, Wt:104, BMI:17.3, Ht-cm: 165.1, Wt-k.17. Assessment: * Assessment: 1. H yperlipidemia, unspecified - E78.5 (Primary), her lipids have been stable. No blood work is available today. A fasting lipid profile has been ordered. No change was made in her regimen. 2 . U nderweight - R63.6, Her weight has been stable lately with a body mass index of 17. 3 . P ancytopenia - D61.818, She continues to have the mild anemia of renal failure but her white blood cell count and platelet count are now normal. 4 . M ild intermittent asthma without complication - J45.20, She has had no difficulty with asthma lately. She has an inhaler which she has not been using. 5 . A cute idiopathic gout involving toe of left foot - M10.072, The gout has now resolved and she is on allopurinol. 6 . C hronic kidney disease, stage 3a - N18.31, Her BUN is 70.The creatinine is 2.96. She is up-to-date with nephrology and continues on therapy without fail. 7 . O steoporosis - M81.0, She has been compliant with his therapy. It was reviewed with her today. 8 . H ypercholesterolemia - E78.00, Her lipids will be followed carefully. They're barely out of range. 9 . P eripheral edema - R60.0, She will continue to hold her amlodipine and use the compression hose and leg elevation. Comprehensive blood work was ordered prior to her decision about diuretics. Plan: * Treatment: 2. U nderweight L AB: PROFILE, RANDOM (COMPREHENSIVE METABOLIC) L AB: CBC WITH AUTO DIFF 3. O thers Continue Pulmicort Flexhaler Aerosol Powder Breath Activated, 180 MCG/ACT, 2 puffs, Inhalation, Twice a day, Notes: October-March; C ontinue ProAir HFA Aerosol Solution, 108 (90 Base) MCG/ACT, 2 puffs as needed, Inhalation, every 4 hrs, Notes: PRN; C ontinue Vitamin E; C ontinue Calcium + D; C ontinue Allopurinol Tablet, 100 MG, TAKE 1 TABLET BY MOUTH DAILY, Oral; C ontinue amLODIPine Besylate Tablet, 5 MG, 1 1/2 tablet, Orally, Once a day. * Procedure Codes: 9 [id number] PHONE E/M BY PHYS 11-20 MIN * Preventive Medicine: Counseling: C are goal follow-up plan: Below Normal BMI Follow-up D ietary education for weight gain, Dietary management education, guidance, and counseling * Follow Up: 2 - 3 Days (Reason: Telehealth) * Images: * Sign off status: Completed true * Provider: Wan Edwards MD Date: 0 01/31/2024 Generated for Timothy kennedy/Ngoc/Yogesh on: 1 04:20 PM EDT History and Physical Notes * HPI (History of Present Illness) Category Sub-Category Detail Notes [facility] {...} [address] [place] [address] [address] [place] [id number] Location of patient:: address listed in demographics for today's visit Patient identification confirmed using:: Name, Telehealth method:: Telephone only. Carrie ent not visible to care provider. Consent:: Patient verbally c onsented to treatment, Patient verbally consented to billing insurance company, Patient informed of any privacy concerns related to method of visit Total time spent with patient (mins): 15
--- OUTSIDE RECORDS SUMMARY | 2024-02-03 05:45 | XMS_ITS ---
Author Organization Meño Edwards III, MD Address [address] [facility] [facility] [address] [place], [place] [address] Care Team Providers Care Family Educator Name Role Phone Dr. Meño Edwards III Primary Care Provider [phone] Allergies Allergen (clinical drug ingredient) Drug/Non Drug [...] Date Provider Diagnosis Meño Edwards III, MD [address] [place] [address] [place] [address] 02/03/2024 Meño Edwards Hyperlipidemia, unspecified E78.5 ; [...] Reason: Office visit Provider Name:Meño Edwards , 04/22/2025 09:30:00 AM, [address] [place] [address] [address], [place], [address], Progress Notes * Jacy DOMINIQUE SDOB: [birth year] (69 yo F)Acc No.[id number]:02/03/2024 Patient: Jacy Lombardi Provider: Wan Edwards MD :1955 A ge:69 Y S ex:Female Date:02/03/2024 Address: [id number] Subjective: * Chief Complaints: * P edal [...] of provider rendering services: { ...} [address] [facility] [address] [place] [address] L ocation of patient: sintia scott listed [...] w isdom teeth extraction tonsillectomy septum repair [id number] right cataract surgery 2012colonoscopy, adenomatous polyp 2004colonoscopy, [...] S he is single and comes fom [facility]. She has no children. * Medications: T akingPulmicort Flexhaler 180 MCG/ACT Aerosol Powder Breath Activated 2 puffs Inhalation Twice a day, Notes: October-MarchPro HFA 108 (90 Base) MCG/ACT Aerosol Solution [...] Once a day. * Procedure Codes: 9 6764 PHONE E/M BY PHYS 11-20 MIN * [...] MD Date: 0 02/03/2024 Generated for Timothy kennedy/Ngoc/Angelaitting on: 1 04:21 PM EDT History and Physical Notes * HPI (History of Present Illness) Category Sub-Category Detail Notes Telehealth Location of [facility] rendering services:: {...} [address] [place] [address] [place] [address] Location of patient:: address listed in demographics [...]
--- OUTSIDE RECORDS SUMMARY | 2024-02-10 06:45 | XMS_ITS ---
Author Organization Meño Edwards III, MD Address [address] [place] [address] Care Team Providers Care Genetic Engineer Name Role Phone Dr. Meño Edwards III Primary Care Provider [phone] Allergies Allergen (clinical drug ingredient) Drug/Non Drug [...] Date Provider Diagnosis Meño Edwards III, MD [address] [place] [address] [place] [address] 02/10/2024 Meño Ernstrne Hyperlipidemia, unspecified E78.5 ; [...] Up: SCHEDULED, Danielle son: OV Provider Name:Meño Edwards , 04/22/2025 09:30:00 AM, [address] [place] [address] DR, [address], [place], [address], Progress Notes * Jacy DOMINIQUE SDOB: [birth year] (69 yo F)Acc No.[id number]:02/10/2024 Patient: Jacy Lombardi Provider: Wan Edwards MD :1955 A ge:69 Y S ex:Female Date:02/10/2024 Address: [address] [id number] Subjective: * Chief Complaints: * P edal [...] ocation of provider rendering services: { ...} [address] [place] [address] Drive [address] [facility] [address] [address] ocation of patient: a ddress listed [...] w isdom teeth extraction tonsillectomy septum repair [id number] right cataract surgery 2012colonoscopy, adenomatous polyp 2004colonoscopy, [...] S he is single and comes fom [facility]. She has no children. * Medications: [...] 2 puffs Inhalation Twice a day, Notes: October- ProAir HFA 108 (90 Base) MCG/ACT Aerosol [...] MD Date: 0 02/10/2024 Generated for Timothy kennedy/Ngoc/Yogesh on: 04:23 PM EDT History and Physical Notes * HPI (History of Present Illness) Category Sub-Category Detail Notes Telehealth Location of [facility] rendering services:: {...} [address] [place] [address] Drive [address] [place] [id number] Location of patient:: address listed in demographics [...]
--- OUTSIDE RECORDS SUMMARY | 2024-04-19 05:00 | XMS_ITS ---
Author Organization Meño Edwards III, MD Address [address] [place] [address] Care Team Providers Care Head Setter Name Role Phone Dr. Meño Edwards III [...] Problem Status W/U Status Risk Notes Problem [id number] Macular degeneration of both eyes, unspecified type [...] Date Provider Diagnosis Meño Edwards III, MD [address] [place] [address] [place] [address] 04/19/2024 Meño Edwards Hyperlipidemia, unsp ecified E78.5 [...] She is under the care of an tester equipment. 04/19/2024 Hypercholesterolemia (ICD-10 - E78.00) Comprehensive blood [...] the patient's number of problems Provider Name:Meño Edwards , 04/22/2025 09:30:00 AM, [address] [place] [address] [place], [address], Progress Notes * Jacy DOMINIQUE SDOB: [birth year] (69 yo F)Acc No.[id number]:04/19/2024 Progress Notes Patient: Jacy GARCIA Provider: Wan Edwards MD :1955 A ge:69 Y S ex:Female Date:04/19/2024 [facility] [id number] Subjective: * Chief Complaints: * A nnual [...] up-to-date with nephrology. She is otherwise asymptomatic.Her biometric fingerprinting technician saw her recently and told her she [...] w isdom teeth extraction tonsillectomy septum repair [id number] right cataract surgery 2011colonoscopy, adenomatous polyp 2004colonoscopy, [...] S he is single and comes fom [facility]. She has no children. * Medications: T akingSodium Polystyrene Sulfonate - Powder as directed Orally 30 grams per week Pulmicort Flexhaler 180 MCG/ACT Aerosol Powder Breath Activated 2 puffs Inhalation Twice a day , Notes to Pharmacist: October-MarchPro HFA 108 (90 Base) MCG/ACT Aerosol [...] 08:00 AM)?ValueReference Range?Creatinine (CrCl) 3.04H0.5-1.4 - mg/dL?Creatinine Wmsypjmvy38.2O16-439 - mL/min ?Creatinine, 24Hr Urine0.8L1.0-2.0 - G/Day?Total Volume 24 Hour Svgxz5711- mL?Creatinine, mg/dL40.82- * Lab:Creatinine * Collection Date 03/02/2024 09/09/2023 09/08/2021 Collection Time 12:58 PM 12:19 PM 11:19 AM Order Date 03/02/2024 09/09/2023 09/08/2021 Creatinine 3.04 H (Ref Range: 0.5-1.4 mg/dL) 3.26 H (Ref Range: 0.5-1.4 mg/dL) 2.29 H (Ref Range: 0.5-1.4 mg/dL) Estimated Glomerular Filt Rate 15 14 21 * Examination: G eneral Examination: GENERAL APPEARANCE: p rafaela, well nourished, well developed, in no acute [...] She is under the care of an tester equipment. 5 . H ypercholesterolemia - E78.00 N [...] Provider: Wan Edwards MD Date: Generated for Deepikai brent/Ngoc/eTransmitting on: 04:22 PM EDT History and Physical Notes * [...]
--- OUTSIDE RECORDS SUMMARY | 2024-06-14 10:47 | XMS_ITS ---
Author Organization Meño Edwards III, MD Address [address] [place] [address] [place] [address] Care Team Providers Care Payment Collector Name Role Phone Dr. Meño Edwards III Primary Care Provider REASON FOR VISIT Message Social History Sex Assigned At : Social History Observation Description Sex Assigned At Female Encounters Encounter Location Date Provider Diagnosis Meño Edwards III, MD [address] [place] [address] [address] [facility] [place] [address] 06/14/2024 Meño Edwards Plan Of Treatment Next Appt Details Provider Name:Meño Edwards , 04/22/2025 09:30:00 AM, [address] [place] [address] [place], [address], Progress Notes * Jacy DOMINIQUE SDOB: [birth year] (69 yo F)Acc No.[id number]:06/14/2024 Patient: Jacy GARCIA :1955 A ge:69 Y S ex:Female Address:[place] [address] * true * Date: Generated for Printi ng/Faxing/eTransmitting on: 04:23 PM EDT
--- OUTSIDE RECORDS SUMMARY | 2024-08-23 05:30 | XMS_ITS ---
Author Organization Meño Edwards III, MD Address [address] [place] [address] Care Team Providers Care Platen Press Operator Apprentice Name Role Phone Dr. Meño Edwards III Primary Care Provider [phone] Allergies Allergen (clinical drug ingredient) Drug/Non Drug [...] Provider Diagnosis Meño Edwards III, MD [address] [place] [address] DR MOELLERJANNETTELIBORIO, [place] [address] 08/23/2024 Meño Edwards Underweight R63.6 ; CKD [...] list for a kidney transplant by her distillation operator helper. 08/23/2024 Mild intermittent asthma without complication (ICD-10 - J45.20) She has had no difficulty with asthma lately. She has an inhaler which she has not been using. 08/23/2024 Thrombocytopenia (ICD-10 - D69.6) She has had no bleeding and is avoiding aspirin. 08/23/2024 Thyroiditis (ICD-10 - E06.9) This is not an active problem. She remains under the care of her account advisor. She is asymptomatic at this time. [...] Provider Name:Meño Edwards , 04/22/2025 09:30:00 AM, [address] [place] [address] , [address], [place], [address], Progress Notes * Jacy DOMINIQUE SDOB: [birth year] (69 yo F)Acc No.[id number]:08/23/2024 Progress Notes Patient: Jcay GARCIA Provider: Wan Edwards MD :1955 A ge:69 Y S ex:Female Date:08/23/2024 Address:[address] [place] [phone] Subjective: * Chief Complaints: * U nderweightPancytopeniaAsthmaCKDGoutMacular degenerationOn kidney transplant list * HPI: C OVID-19 Screening: moving to [place] dont know when. Questions H ave you [...] her new glasses. She has seen an lead blender twice this year for this issue. The [...] w isdom teeth extraction tonsillectomy septum repair [id number] right cataract surgery 2012colonoscopy, adenomatous polyp 2004colonoscopy, [...] S he is single and comes fom [facility]. She has no children. * [...] Filt Rate 13 15 14 * Lab:Comprehensive [place]. Pane l Fast * Collection Date 08/21/2024 [...] list for a kidney transplant by her distillation operator helper. 2 . U nderweight - R63.6 N [...] She remains under the care of her account advisor. She is asymptomatic at this time. [...] 08/23/2024 Generated for Timothy kennedy/Ngoc/Yogesh on: 1 04:23 PM EDT History and Physical Notes [...]
--- OUTSIDE RECORDS SUMMARY | 2024-08-31 08:11 | XMS_ITS ---
Author Organization Meño Edwards III, MD Address [address] [place] [address] [place] [address] Care Team Providers Care Medical Customer Service Representative Name Role Phone Dr. Meño Edwards [...] Provider Diagnosis Meño Edwards III, MD [address] [place] [address] [place] [address] 08/31/2024 Meño Edwards Plan Of Treatment Medication Medication Name Sig Start Date Stop Date Notes amLODIPine Besylate 5 MG 1 tablet Orally Once a day for 30 days Next Appt Details Provider Name:Meño Edwards , 04/22/2025 09:30:00 AM, [address] [place] [address] [place], [address], Progress Notes * Jacy DOMINIQUE SDOB: [birth year] (69 yo F)Acc No.[id number]:08/31/2024 Patient: Jacy GARCIA :1955 A ge:69 Y S ex:Female Address:[address] [place] [address] * Refills Refill amLODIPine Besylate Tablet, 5 MG, Orally, 30 Tablet, 1 tablet, Once a day, 30 days, Refills=11 * true * Date: Generated for Timothy kennedy/Ngoc/Yogesh on: 04:19 PM EDT
--- OUTSIDE RECORDS SUMMARY | 2024-11-21 05:30 | XMS_ITS ---
Author Organization Meño Edwards III, MD Address [address] [address] Care Team Providers Care Multimedia Specialist Name Role Phone Dr. Meño Edwards III [...] Date Provider Diagnosis Meño Edwards III, MD [address] [place] [address] [address], [place] [address] 11/21/2024 Meño Edwards Underweight R63.6 ; Pancytopenia [...] She remains under the care of her online publisher. She is asymptomatic at this time. 11/21/2024 [...] under the care of Dr. Ashford, her cloud operations engineer. She is now on a kidney transplant [...] son: Annual Exam Provider Name:Meño Edwards , 04/22/2025 09:30:00 AM, [address] [place] [address] [address], [place], [place], [address], Progress Notes * Jacy DOMINIQUE SDOB: [birth year] (69 yo F)Acc No.[id number]:11/21/2024 Progress Notes Patient: Aidee ADAMJacy COTTRELL Provider: Wan Edwards MD :1955 A ge:69 [...] today. She is going to see her cloud operations engineer next week and will have blood work [...] w isdom teeth extraction tonsillectomy septum repair [id number] right cataract surgery 2012colonoscopy, adenomatous polyp 2004colonoscopy, [...] S he is single and comes fom [facility]. She has no children. * [...] reconciled with the patient * Allergies: S reeseeno[Allergies Verified] Objective: * Vitals: H t: 65, [...] She remains under the care of her online publisher. She is asymptomatic at this time. 7 [...] under the care of Dr. Ashford, her cloud operations engineer. She is now on a kidney transplant [...] MD Date: 0 11/21/2024 Generated for Timothy kennedy/Ngoc/eTalexsmitting on: 04:23 PM EDT History and Physical [...]
--- OUTSIDE RECORDS SUMMARY | 2025-01-11 05:59 | XMS_ITS ---
Author Organization Meño Edwards III, MD Address [address] [place] [address] [place] [address] Care Team Providers Care Top Dyeing Machine Loader Name Role Phone Dr. Meño Edwards III Primary Care Provider REASON FOR VISIT Rx Request Social History Sex Assigned At : Social History Observation Description Sex Assigned At Female Encounters Encounter Location Date Provider Diagnosis Meño Edwards III, MD [address] [place] [address] [place] [address] 01/11/2025 Meño Edwards Plan Of Treatment Next Appt Details Provider Name:Meño Edwards , 04/22/2025 09:30:00 AM, [address] [place] [address] [place], [address], Progress Notes * Jacy DOMINIQUE SDOB: [birth year] (69 yo F)Acc No.[id number]:01/11/2025 Patient: Jacy GARCIA :1955 A ge:69 Y S ex:Female Address:[place] [address] * true * Date: Generated for Printi ng/Faxing/eTransmitting on: 04:20 PM EDT
--- OUTSIDE RECORDS SUMMARY | 2025-01-11 07:51 | XMS_ITS ---
Author Organization Meño Edwards III, MD Address [address] [place] [address] [place] [address] Care Team Providers Care Corporate Claims Examiner Name Role Phone Dr. Meño Edwards III Primary Care Provider [phone] Medications Medication SIG (Take, Route, Frequency, Duration) Notes Start Date End Date Status Amoxicillin-Pot Clavulanate 875-125 MG 1 tablet Orally every 12 hrs for 7 days 01/11/2025 01/18/2025 Active Social History Sex Assigned At : Social History Observation Description Sex Assigned At Female Encounters Encounter Location Date Provider Diagnosis Meño Edwards III, MD [address] [place] [address] [place] [address] 01/11/2025 Meño Edwards Plan Of Treatment Medication Medication Name Sig Start Date Stop Date Notes Amoxicillin-Pot Clavulanate 875-125 MG 1 tablet Orally every 12 hrs for 7 days 01/11/2025 01/18/2025 Next Appt Details Provider Name:Meño Edwards , 04/22/2025 09:30:00 AM, [address] [place] [address] [place], [address], Progress Notes * Jacy DOMINIQUE SDOB: [birth year] (69 yo F)Acc No.[id number]:01/11/2025 Patient: Aidee Jacy COFFMAN :1955 A ge:69 Y S ex:Female Address:[address] [place] [address] * Refills Start Amoxicillin-Pot Clavulanate Tablet, 875-125 MG, Orally, 14 Tablet, 1 tablet, every 12 hrs, 7 days, Refills=0 * true * Date: Generated for Timothy kennedy/Ngoc/Yogesh on: 1 04:19 PM EDT
[2025-04-17 12:21] LABS: MANUAL DIFF FLAG NO
[2025-04-17 12:32] LABS: Hematocrit 31.1 % (37.0-47.0); Hemoglobin 9.5 g/dl (12.0-16.0); Imm Gran Abs Auto 0.01 X10*3/uL (0.00-0.03); Imm Gran Pct Auto 0.2 % (0.0-0.4); Lymphocytes Absolute Auto 0.9 X10*3/uL (1.2-4.9); Mean Corpuscular HGB Conc 30.5 g/dl (31.0-35.0); Mean Corpuscular Hemoglobin 30.4 pg (27.0-33.0); Mean Corpuscular Volume 99.4 fL (80.0-98.0); NRBC Abs Auto 0.000 X10*3/uL (0.0-0.012); NRBC Pct Auto 0.0 /100WBC (0.0-0.2); Platelet Count 136 X10*3/uL (160-400); Red Blood Count 3.13 X10*6/uL (4.20-5.50); White Blood Count 4.2 X10*3/uL (4.8-10.8)
[2025-04-17 12:58] LABS: Alanine Aminotransferase 38 U/L (0-31); Albumin Level 4.3 g/dL (3.5-5.0); Alkaline Phosphatase 144 U/L (39-117); Anion Gap 11 (12-20); Aspartate Amino Transferase 43 U/L (5-31); Blood Urea Nitrogen 67 mg/dL (9-16); Calcium 9.4 mg/dL (8.4-10.2); Carbon Dioxide 30 mmol/L (22-29); Chloride 109 mmol/L (96-108); Cholesterol 197 mg/dL (<200); Estimated Glomerular Filt Rate 12; HDL Cholesterol 73 mg/dL (>40); Potassium 4.4 mmol/L (3.3-5.1); Sodium 146 mmol/L (135-145); Total Protein 6.5 g/dL (6.5-8.0); Triglycerides 106 mg/dL (<150)
--- OUTSIDE RECORDS SUMMARY | 2025-04-17 16:19 | XMS_ITS | Continuity of Care Document ---
Author Organization [facility] Address [address] [place] [address] Phone [phone] Social History Type Date Description Comments Sex Female Sex Unknown Medical Devices Description No Information Available Encounters Description No Information Available Assessments Description No Information Available Plan of Treatment No Information Available Functional Status Description No Information Available Mental Status Description No Information Available Referrals Description No Information Available
--- OUTSIDE RECORDS SUMMARY | 2025-04-17 16:21 | XMS_ITS | Patient Health Record ---
Author Organization [facility] Address [address] [place] [address] Care Team Providers Care Policy Officer Name Role Phone Meño Edwards MD Primary Care Provider Unavailab Fady Denson Jr Unavailable [phone] Allergies Allergen (clinical drug ingredient) Drug/Non Drug Allergy documented on EMR Reaction Allergy Type Onset Date Status dust,pollen,mold,pet dander (uncoded) Unknown Allergy Active Reason For Referral No Information Medications Medication SIG (Take, Route, Frequency, Duration) Notes Start Date End Date Status MiraLax (colon prep) 8.3 ounce ((238) grams mixed with Gatorade or Crystal Light orally begin at 5:00 p.m. the day before the procedure; Duration: 1 day 07/28/2020 Active Pulmicort seasonal Active [...] Problem Status W/U Status Risk Notes Problem Colon cancer screening (725950632) Colon cancer screening (V76.51) Active confirmed Problem Colon cancer screening (211608149) Colon cancer screening (Z12.11) Active confirmed Problem History of polyp of colon (situation) (513862224) Personal history of colonic polyps (Z86.010) Active confirmed Problem Long-term current use of drug therapy (768558143) Long-term current use of high risk medication other than anticoagulant (Z79.899) Active confirmed Plan Of Treatment Future Test Test Name Order Date COLONOSCOPY 04/01/2014 COLONOSCOPY 07/28/2020 Insurance Providers Payer Name Payer Address Payer Phone Subscriber Number Group Number Insured Name Patient Relationship to Insured Coverage Start Date Coverage End Date MEDICARE OF [place] [address] [place] [address] [id number] MENA DOMINIQUE Self - patient is the insured [employer] ATT[employer] CLAIMS [address] [place] [address] [id number] MENA DOMINIQUE Self - patient is the [...]
--- OUTSIDE RECORDS SUMMARY | 2025-04-17 16:22 | XMS_ITS | Patient Health Record ---
Author Organization Meño Edwards III, MD Address [address] [place] [address] Care Team Providers Care Child Welfare Specialist Name Role Phone Dr. Meño Edwards [...] trace Negative - Menstrating no Electrolytes Reviewed date:06/04/2024 05:33:48 AM Interpretation: Performing Lab:[facility], [address] [place] [phone] Notes/Report: Sodium 142 135-145 mmol/L Potassium 5.1 3.3-5.1 mmol/L Chloride 107 96-108 mmol/L Carbon Dioxide 29 22-29 mmol/L Anion Gap 11 12-20 Blood Urea Nitrogen Reviewed date:06/04/2024 05:33:48 AM Interpretation: Performing Lab:[facility], [address] [place] [phone] Notes/Report: Blood Urea Nitrogen 80 9-16 mg/dL Creatinine Reviewed date:06/04/2024 05:33:48 AM Interpretation: Performing Lab:[facility], [address] [place] [phone] Notes/Report: Creatinine 3.57 0.5-1.4 mg/dL Estimated Glomerular Filt Rate 13 Chronic Kidney Disease: Estimated GFR < 60 mL/min/1.73m2 Severe Kidney Disease: Estimated GFR < 15 mL/min/1.73m2 Complete Blood Count Auto Di ff Reviewed date:08/25/2024 06:24:46 PM Interpretation: Performing Lab:[facility], [address] [place] [phone] Notes/Report: White Blood Count 4.5 4.8-10.8 X10*3/uL [...] NRBC Abs Auto 0.000 0.0-0.012 X10*3/uL Comprehensive [place]. Panel Fa st Reviewed date:08/25/2024 06:24:46 PM Interpretation: Performing Lab:[facility], [address] [place] [phone] Notes/Report: Sodium 143 135-145 mmol/L Potassium 5.4 [...] Panel Reviewed date:08/25/2024 06:24:46 PM Interpretation: Performing Lab:[facility], [address] [place] [phone] Notes/Report: Triglycerides 125 <150 mg/dL Desirable Triglyceride: [...] Thyroxine) Reviewed date:08/25/2024 06:24:46 PM Interpretation: Performing Lab:[facility], [address] [place] [phone] Notes/Report: Free T4 (Free Thyroxine) 0.93 0.71-1.85 ng/dL Thyroid Stimulating Hormone Reviewed date:08/25/2024 06:24:47 PM Interpretation: Performing Lab:[facility], [address] [place] [phone] Notes/Report: Thyroid Stimulating Hormone 4.83 0.32-4.0 uIU/mL Note: A sustained TSH level above 2.5 uIU/mL may warrant further investigation. TSH 3rd Generation ([facility]) Complete Blood Count Auto Di ff Reviewed date:09/09/2024 10:16:33 AM Interpretation: Performing Lab:[facility], [address] [place] [phone] Notes/Report: White Blood Count 4.3 4.8-10.8 X10*3/uL [...] Electrolytes Reviewed date:09/09/2024 10:16:33 AM Interpretation: Performing Lab:[facility], [address] [place] [phone] Notes/Report: Sodium 141 135-145 mmol/L Potassium 5.4 3.3-5.1 mmol/L Chloride 112 96-108 mmol/L Carbon Dioxide 20 22-29 mmol/L Anion Gap 14 12-20 Blood Urea Nitrogen Reviewed date:09/09/2024 10:16:33 AM Interpretation: Performing Lab:[facility], [address] [place] [phone] Notes/Report: Blood Urea Nitrogen 99 9-16 mg/dL Creatinine Reviewed date:09/09/2024 10:16:33 AM Interpretation: Performing Lab:[facility], [address] [place] [phone] Notes/Report: Creatinine 3.45 0.5-1.4 mg/dL Estimated Glomerular Filt Rate 13 Chronic Kidney Disease: Estimated GFR < 60 mL/min/1.73m2 Severe Kidney Disease: Estimated GFR < 15 mL/min/1.73m2 Calcium Reviewed date:09/09/2024 10:16:33 AM Interpretation: Performing Lab:[facility], [address] [place] [phone] Notes/Report: Calcium 9.0 8.4-10.2 mg/dL IRON PROFILE Reviewed date:09/09/2024 10:16:33 AM Interpretation: Performing Lab:[facility], [address] [place] [phone] Notes/Report: Iron 85 30-160 mcg/dL Total Iron Binding Capacity 344 228-428 mcg/dL Percent Iron Saturation 25 15-50 % Unsaturated Iron Binding 259 Ferritin Reviewed date:09/09/2024 10:16:33 AM Interpretation: Performing Lab:[facility], [address] [place] [phone] Notes/Report: Ferritin 50 10-250 ng/mL Vitamin D 25-OH Total Reviewed date:09/09/2024 10:16:33 AM Interpretation: Performing Lab:[facility], [address] [place] [phone] Notes/Report: Vitamin D 25-OH Total 37.3 >30 [...] Intact Reviewed date:09/09/2024 10:16:33 AM Interpretation: Performing Lab:[facility], [address] [place] [phone] Notes/Report: Parathyroid Hormone Intact 289.2 8.7-77.1 pg/mL MM tomosynthesis screening B I Reviewed date:10/05/2024 08:33:40 PM Interpretation: Performing Lab: Notes/Report: [facility] [address] [place] [address] Mammography Report Signed Patient: Jacy Goldberg MR#: [id number] : 1955 Acct:[id number] Age/Sex: 69 / F ADM Date: 09/24/24 Loc: SANDRA.MAMMO Attending Dr: Meño Edwards MD Ordering Physician: Meño Edwards MD Results: 2Benign Findings Date of Service: 09/24/24 Follow Up: 1 Year From Orig inal Mammogram Procedure(s): MM tomosynthesis screening BI Accession Number(s): [id number] cc: Meño Edwards MD EXAMINATION: MM SCREENING [...] 09/29/24 1733 DD/ 0830 TD/TT: 09/24/24 0852 Unit Reactor Operator: Tacho [facility]'s [address] [place] [address] Mammography Report Signed Patient: Shubham Goldberg MR#: [id number] : 1955 Acct:[id number] Age/Sex: 69 / F ADM Date: 09/24/24 Loc: HO.MAMMO Attending Dr: Meño Edwards MD Ordering Physician: Meño Edwards MD Results: 2Benign Findings Date of Service: 09/24/24 Follow Up: 1 Year From Orig ina Mammogram Procedure(s): MM tomosynthesis screening BI Accession Number(s): [id number] cc: Meño Edwards MD EXAMINATION: MM SCREENING [...] 09/29/24 1733 DD/ 0830 TD/TT: 09/24/24 0852 Unit Reactor Operator: Complete Blood Count Auto Di ff Reviewed date:02/27/2025 04:48:33 AM Interpretation: Performing Lab:[facility], [address] [place] [phone] Notes/Report: White Blood Count 5.4 4.8-10.8 X10*3/uL [...] Electrolytes Reviewed date:02/27/2025 04:48:33 AM Interpretation: Performing Lab:[facility], [address] [place] [phone] Notes/Report: Sodium 138 135-145 mmol/L Potassium 5.4 3.3-5.1 mmol/L Chloride 103 96-108 mmol/L Carbon Dioxide 26 22-29 mmol/L Anion Gap 14 12-20 Blood Urea Nitrogen Reviewed date:02/27/2025 04:48:33 AM Interpretation: Performing Lab:[facility], [address] [place] [phone] Notes/Report: Blood Urea Nitrogen 70 9-16 mg/dL Creatinine Reviewed date:02/27/2025 04:48:33 AM Interpretation: Performing Lab:[address] [phone] Notes/Report: Creatinine 3.67 0.5-1.4 mg/dL Estimated Glomerular Filt Rate 12 Chronic Kidney Disease: Estimated GFR < 60 mL/min/1.73m2 Severe Kidney Disease: Estimated GFR < 15 mL/min/1.73m2 Calcium Reviewed date:02/27/2025 04:48:33 AM Interpretation: Performing Lab:[facility], [address] [place] [phone] Notes/Report: Calcium 9.1 8.4-10.2 mg/dL Complete Blood Count Auto Di ff Reviewed date:03/31/2025 07:57:19 AM Interpretation: Performing Lab:[facility], [address] [place] [phone] Notes/Report: White Blood Count 3.2 4.8-10.8 X10*3/uL [...] Abs Auto 0.000 0.0-0.012 X10*3/uL Electrolytes Reviewed date:03/31/2025 07:57:19 AM Interpretation: Performing Lab:[facility], [address] [place] [phone] Notes/Report: Sodium 145 135-145 mmol/L Potassium 4.8 3.3-5.1 mmol/L Chloride 112 96-108 mmol/L Carbon Dioxide 24 22-29 mmol/L Anion Gap 14 12-20 Blood Urea Nitrogen Reviewed date:03/31/2025 07:57:19 AM Interpretation: Performing Lab:[facility], [address] [place] [phone] Notes/Report: Blood Urea Nitrogen 75 9-16 mg/dL Creatinine Reviewed date:03/31/2025 07:57:19 AM Interpretation: Performing Lab:[facility], [address] [place] [phone] Notes/Report: Creatinine 4.52 0.5-1.4 mg/dL Critical value for test(s): CREA Results called to and read back by: DR. ZURITA Person calling: [email or web address] Date: 03-26-25 Time: 1833 Estimated Glomerular Filt Rate 10 Chronic Kidney Disease: Estimated GFR < 60 mL/min/1.73m2 Severe Kidney Disease: Estimated GFR < 15 mL/min/1.73m2 Calcium Reviewed date:03/31/2025 07:57:19 AM Interpretation: Performing Lab:[facility], [address] [place] [phone] Notes/Report: Calcium 8.6 8.4-10.2 mg/dL Complete Blood Count Auto Di ff (Not yet reviewed by provider) Interpretation: Performing Lab:[facility], [address] [place] [phone] Notes/Report: White Blood Count 4.2 4.8-10.8 X10*3/uL Red Blood Count 3.13 4.20-5.50 X10*6/uL Hemoglobin 9.5 12.0-16.0 g/dl Hematocrit 31.1 37.0-47.0 % Mean Corpuscular Volume 99.4 80.0-98.0 fL Mean Corpuscular Hemoglobin 30.4 27.0-33.0 pg Mean Corpuscular HGB Conc 30.5 31.0-35.0 g/dl Red Cell Distribution Width 13.8 11.0-16.0 % Platelet Count 136 160-400 X10*3/uL Mean Platelet Volume 11.6 9.4-12.3 fL Neutrophils Percent Auto 66.3 45-73 % Imm Gran Pct Auto 0.2 0.0-0.4 % Lymphocytes Percent Auto 21.2 20-40 % Monocytes Percent Auto 7.5 2-11 % Eosinophils Percent Auto 4.3 0-4 % Basophils Percent Auto 0.5 0-2 % NRBC Pct Auto 0.0 0.0-0.2 /100WBC Neutrophils Absolute Auto 2.8 2.0-8.3 x10*3/uL Imm Gran Abs Auto 0.01 0.00-0.03 X10*3/uL Lymphocytes Absolute Auto 0.9 1.2-4.9 X10*3/uL Monocytes Absolute Auto 0.3 0.1-1.2 X10*3/uL Eosinophils Absolute Auto 0.2 0.0-0.4 X10*3/uL Basophils Absolute Auto 0.0 0.0-0.2 X10*3/uL NRBC Abs Auto 0.000 0.0-0.012 X10*3/uL Comprehensive [place]. Panel Fa (Not yet reviewed by provider) Interpretation: Performing Lab:[facility], [address] [place] [phone] Notes/Report: Sodium 146 135-145 mmol/L Potassium 4.4 3.3-5.1 mmol/L Chloride 109 96-108 mmol/L Carbon Dioxide 30 22-29 mmol/L Anion Gap 11 12-20 Blood Urea Nitrogen 67 9-16 mg/dL Creatinine 3.67 0.5-1.4 mg/dL Estimated Glomerular Filt Rate 12 Chronic Kidney Disease: Estimated GFR < 60 mL/min/1.73m2 Severe Kidney Disease: Estimated GFR < 15 mL/min/1.73m2 Glucose Fasting 91 60-99 mg/dL Calcium 9.4 8.4-10.2 mg/dL Bilirubin Total 0.3 0.0-1.0 mg/dL Aspartate Amino Transferase 43 5-31 U/L Alanine Aminotransferase 38 0-31 U/L Total Protein 6.5 6.5-8.0 g/dL Albumin Level 4.3 3.5-5.0 g/dL Alkaline Phosphatase 144 39-117 U/L Lipid Panel (Not yet reviewe d by provider) Interpretation: Performing Lab:[facility], [address] [place] [phone] Notes/Report: Triglycerides 106 <150 mg/dL Desirable Triglyceride: less than 150 mg/dL Borderline High Triglyceride 150-199 mg/dL High Triglyceride: 200-499 mg/dL Very High Triglyceride: greater than or equal to 5OO mg/dL Cholesterol 197 <200 mg/dL Desirable Cholesterol: less than 200 mg/dL Borderline High Cholesterol: 200-239 mg/dL High Cholesterol: greater than 239 mg/dL LDL Cholesterol Calculated 103 <100 mg/dL Desirable LDL: less than 100 mg/dL Near Optimal/Above Optimal LDL: 110-129 mg/dL Borderline High LDL: 130-159 mg/dL High LDL: 160-189 mg/dL Very High LDL: greater than or equal to 190 mg/dL HDL Cholesterol 73 >40 mg/dL Desirable HDL: greater than 40 mg/dL Note: This HDL assay may give artificially low results in patients with liver disease. Reason For Referral No Information Medications Medication [...] Problem Status W/U Status Risk Notes Problem 054469178 Underweight (R63.6) Active confirmed Her weight has been stable lately with a body mass index of 18. Problem 182010182 Pancytopenia (D61.818) Active confirmed All 3 cell line s have been diminished. This is likely due to her chronic renal failure. The mean cell volume remains slightly elevated. It is being observed carefully. Problem 051255239 Skin cancer (C44.90) Active confirmed he recently had a basal cell carcinoma removed from the right side of her face and her left arm. There was no sign of residual disease today. Problem Hyperlipidemia (03339152) Hyperlipidemia, unspecified (E78.5) Active confirmed her lipids have been stable. No blood work is available today. A fasting lipid profile has been ordered. No change was made in her regimen. Problem Uncomplicated asthma (disorder) (765655649) Unspecified asthma, uncomplicated (J45.909) Active confirmed She has had no episodes of asthma recently. Problem 714168291 Mild intermittent asthma without complication (J45.20) Active confirmed She has had no difficulty with asthma lately. She has an inhaler which she has not been using. Problem 52279995 Cataracts, bilateral (H26.9) Active confirmed She will continue to see the infrastructure solutions architect to resolved these problems. Problem Osteoporosis (25567195) Osteoporosis (M81.0) Active confirmed She has been compliant with his therapy. It was reviewed with her today. Problem 163419549 Osteoarthritis (M19.90) Active confirmed She will continue on current therapy at this time. She will avoid NSAIDs. Problem 42027559 Thyroiditis (E06.9) Active confirmed This is not an active problem. She remains under the care of her corsetier. She is asymptomatic at this time. Problem Hypercholesterole brian (74799001) Hypercholestero lemia (E78.00) Active confirmed Comprehensive blood work with a fasting lipid profile is being done periodically. No change in her medication was made today. Her lipids have been controlled. Problem 296321529 Macular degeneration of both eyes, unspecified type (H35.30) Active confirmed Her vision has not changed since her last visit. She really remains under the care of the ophthalmologists . Problem Chronic kidney disease stage 3A (disorder) (932215378) Chronic kidney disease, stage 3a (N18.31) Active confirmed Her BUN is 70.The creatinine is 2.96. She is up-to-date with nephrology and continues on therapy without fail. Problem 84386986 Acute idiopathic gout involving toe of left [...] Date Provider Diagnosis Meño Edwards III, MD [address] [place] [address] [place] [address] 04/19/2024 Meño Edwards Hyperlipidemia, unsp ecified E78.5 ; CKD (chronic kidney disease) stage 3, GFR 30-59 ml/min N18.3 ; Pancytopenia D61.818 ; H/O hyperthyroidism Z86.39 ; Hypercholesterolemia E78.00 ; Neutropenia D70.9 ; Underweight R63.6 ; Mild intermittent asthma without complication J45.20 and Acute idiopathic gout involving toe of left foot M10.072 Meño Edwards III, MD [address] [place] [address] [place] [phone] 08/23/2024 Meño Edwards Underweight R63.6 ; CKD (chronic kidney disease) stage 3, GFR 30-59 ml/min N18.3 ; Mild intermittent asthma without complication J45.20 ; Thrombocytopenia D69.6 ; Thyroiditis E06.9 and Osteoporosis M81.0 Meño Edwards III, MD [address] [place] [address] [place] [phone] 11/21/2024 Meño Edwards Underweight R63.6 ; Pancytopenia D61.818 ; Mild intermittent asthma without complication J45.20 ; Osteoarthritis M19.90 ; Osteoporosis M81.0 ; Thyroiditis E06.9 ; Hyperlipidemia, unspecified E78.5 ; Unspecified asthma, uncomplicated J45.909 ; Macular degeneration of both eyes, unspecified type H35.30 ; Skin cancer C44.90 and CKD (chronic kidney disease) stage 3, GFR 30-59 ml/min N18.3 Meño Edwards III, MD [address] [place] [address] [place] [address] 06/14/2024 Meño Edwards III, MD [address] [place] [address] [place] [phone] 08/31/2024 Meño Edwards III, MD [address] [place] [address] [place] [phone] 01/11/2025 Meño Edwards III, MD [address] [place] [address] [place] [phone] 01/11/2025 Meño Edwards Assessments Encounter Date Diagnosis [...] list for a kidney transplant by her engineering operations leader. 11/21/2024 Underweight (ICD-10 - R63.6) Her weight [...] She is under the care of an corsetier. 08/23/2024 Thrombocytopenia (IC D-10 - D69.6) She [...] She remains under the care of her corsetier. She is asymptomatic at this time. 11/21/2024 [...] She remains under the care of her corsetier. She is asymptomatic at this time. 04/19/2024 [...] under the care of Dr. Ashford, her engineering operations leader. She is now on a kidney transplant [...] DIFF 01/31/2024 Complete Blood Count Auto Diff Comprehensive [place]. Panel Fast Uric Acid 11/21/2024 Lipid Panel 08/23/2024 Lipid Panel 10/20/2023 Lipid Panel 08/14/2021 Lipid Panel 04/19/2024 Lipid Panel 04/17/2025 Lipid Panel 04/07/2023 Lipid Panel 04/13/2021 Lipid Panel 11/21/2024 Vitamin D 25-OH Total 11/21/2024 Vitamin D 25-OH Total 04/07/2023 Free T4 (Free Thyroxine) 04/19/2024 Next Appt Details Provider Name:Meño Edwards , 04/22/2025 09:30:00 AM, [address] [place] [address] ENZO Rodrick, [place], [address], Insurance Providers Payer Name Payer Address Payer Phone Subscriber Number Group Number Insured Name Patient Relationship to Insured Coverage Start Date Coverage End Date MEDICARE NGS [address] [place] [address] [id number] Jacy Goldberg Self - patient is the insured [facility] [address] [place], [place] [id number] Jacy Goldberg Self - patient is the insured Medical (General) History Medical History History ICD Code degenerative arthritis of the cervical s pine spine asthma osteoarthritis hemorhoids thrombocytopenia cataracts last bilateral mammogram 12/18/2012 @ [facility] R&I anemia hyperthyroid abnormal renal function Surgical History Surgery Date(Month/Year) No history Basal Cell removed, Left arm 01/10/2023 biopsy on left index finger 09/2018 colonoscopy, wnl 2008 colonoscopy, adenomatous polyp 2003 right cataract surgery 2011 [id number] septum repair tonsillectomy wisdom teeth extraction Hospitalization History Reason Date(Month/Year) No history
--- OUTSIDE RECORDS SUMMARY | 2025-04-17 16:23 | XMS_ITS | Patient Health Record ---
Author Organization [facility] Address [address] [place] [address] Care Team Providers Care Publication Editor Name Role Phone Meño Edwards MD Primary Care Provider London Méndez Unavailable [phone] Allergies Allergen (clinical drug ingredient) Drug/Non Drug [...] Date Coverage End Date Medicare National Govt [employer] [address] [place] [address] [id number] Jacy Goldberg Self - patient is the insured [employer] [address] [place] [address] [id number] Jacy Goldberg Self - patient is the insured Medical (General) History Medical History History ICD Code asthma Back pain CAD (Cholesterol) Cataracts Measles Mumps Kidney disease chronic sinusitis Warts Surgical History Surgery Date(Month/Year) tonsillectomy and adenoidectomy wisdom teeth extraction 1971 cataract surgery 10/28/2015 deviated septum repair 1976
--- OUTSIDE RECORDS SUMMARY | 2025-04-17 16:24 | XMS_ITS | Clinical Summary ---
Author Organization [facility] Address [address] [place] [address] Care Team Providers Care Bobbin Disker Name Role Phone Unavailable Primary Care Provider [...]
== END 2025-04-17 11:43 | disposition home or self-care (01) ==
LOC: HO.10HDL 11:42
PROVIDERS: Visit Provider Internal Medicine Medical Oncology
DX: D61.818 Other pancytopenia (principal); E78.5 Hyperlipidemia, unspecified; E78.00 Pure hypercholesterolemia, unspecified
CPT/HCPCS: 36415; 80053; 80061; 85025

== ENCOUNTER 2025-05-02 08:51 | Outpatient (AMB) | payer MEDICARE, SELFPAY ==
--- OUTSIDE RECORDS SUMMARY | 2024-02-03 04:45 | XMS_ITS ---
Author Organization Meño Edwards III, MD Address [address] [place], [place] [address] Care Team Providers Care Court Worker Name Role Phone Dr. Meño Edwards III Primary Care Provider [phone] Allergies Allergen (clinical drug ingredient) Drug/Non Drug [...] Date Provider Diagnosis Meño Edwards III, MD [address] [place] [address] [place] [address] 02/03/2024 Meño Edwards Hyperlipidemia, unspecified E78.5 ; [...] Provider Name:Meño Edwards , 07/10/2025 09:30:00 AM, [address] [place] [address] [address], [place], [address], Provider Name:Meño Edwards , 04/23/2026 09:30:00 AM, [address] [place] [address] [address], [address], [facility] [place] [place] [place], [address], Progress Notes * Jacy DOMINIQUE SDOB: [birth year] (69 yo F)Acc No.[id number]:02/03/2024 Patient: Jacy Lombardi Provider: Wan Edwards MD [...] of provider rendering services: { ...} [address] [facility] [address] L ocation of patient: sintia scott listed [...] w isdom teeth extraction tonsillectomy septum repair [id number] right cataract surgery 2012colonoscopy, adenomatous polyp 2004colonoscopy, [...] S he is single and comes fom [facility]. She has no children. * [...] 0 02/03/2024 Generated for Timothy kennedy/Ngoc/Yogesh on: 07/02/2024 09:31 AM EST History and Physical Notes * HPI (History of Present Illness) Category Sub-Category Detail Notes Telehealth Location of [facility] rendering services:: {...} [address] [place] [address] [place] [address] Location of patient:: address listed in demographics [...]
--- OUTSIDE RECORDS SUMMARY | 2024-02-10 05:45 | XMS_ITS ---
Author Organization Meño Edwards III, MD Address [address] [place] [place] [address] Care Team Providers Care Mounter Br[employer] Name Role Phone Dr. Meño Edwards III [...] Date Provider Diagnosis Meño Edwards III, MD [address] [place] [address] [place] [address] 02/10/2024 Meño Ernstrne Hyperlipidemia, unspecified E78.5 ; [...] Provider Name:Meño Ernstrne , 07/10/2025 09:30:00 AM, [address] [place] [address] [address], [place], [address], Provider Name:Meño Reilly Edwards , 04/23/2026 09:30:00 AM, [address] [place] [address] [address], [place], [address], Progress Notes * Jacy DOMINIQUE SDOB: [birth year] (69 yo F)Acc No.[id number]:02/10/2024 Patient: Jacy Lombardi Provider: Wan Ewdards MD :1955 A ge:69 Y S ex:Female Date:02/10/2024 Address:[address] [place] [phone] Subjective: * Chief Complaints: * P edal [...] of provider rendering services: { ...} [address] [facility] [address] L ocation of patient: a ddress listed [...] w isdom teeth extraction tonsillectomy septum repair [id number] right cataract surgery 2012colonoscopy, adenomatous polyp 2004colonoscopy, [...] S he is single and comes fom [facility]. She has no children. * [...] * Provider: Wan Edwards MD Date: 0 02/10/2024 Generated for Timothy kennedy/Ngoc/Angelaitting on: 07/02/2024 09:32 AM EST History and Physical Notes * HPI (History of Present Illness) Category Sub-Category Detail Notes Telehealth Location of [facility] rendering services:: {...} [address] [place] [address] Location of patient:: address listed in demographics [...]
--- OUTSIDE RECORDS SUMMARY | 2024-04-19 04:00 | XMS_ITS ---
Author Organization Meño Edwards III, MD Address [address] [place] [address] Care Team Providers Care Shoulder Boner Name Role Phone Dr. Meño Edwards III [...] Problem Status W/U Status Risk Notes Problem [id number] Macular degeneration of both eyes, unspecified type [...] Date Provider Diagnosis Meño Edwards III, MD [address] [place] [address] [place] [address] 04/19/2024 Meño Edwards Hyperlipidemia, unsp ecified E78.5 [...] She is under the care of an television maintenance worker. 04/19/2024 Hypercholesterolemia (ICD-10 - E78.00) Comprehensive blood [...] Migdalia Grace , 07/10/2025 09:30:00 AM, [address] [facility] [address], [place], [address], Provider Name:Meño Edwards , 04/23/2026 09:30:00 AM, [address] [place] [address] [address], [place], [address], Progress Notes * Pillo DOMINIQUEe SDOB: [birth year] (69 yo F)Acc No.[id number]:04/19/2024 Progress Notes Patient: Jacy GARCIA Provider: Wan Edwards MD :1955 A ge:69 Y S ex:Female Date:04/19/2024 Address:[address] [place] [address] [place], [id number] Subjective: * Chief Complaints: * A nnual [...] up-to-date with nephrology. She is otherwise asymptomatic.Her skidway worker saw her recently and told her she [...] w isdom teeth extraction tonsillectomy septum repair [id number] right cataract surgery 2012colonoscopy, adenomatous polyp 2004colonoscopy, [...] S he is single and comes fom [facility]. She has no children. * [...] 08:00 AM)?ValueReference Range?Creatinine (CrCl) 3.04H0.5-1.4 - mg/dL?Creatinine Tftqjuanq03.3E64-309 - mL/min ?Creatinine, 24Hr Urine0.8L1.0-2.0 - G/Day?Total Volume 24 Hour Vwmtb4374- mL?Creatinine, mg/dL40.82- * Lab:Creatinine * Collection Date [...] She is under the care of an television maintenance worker. 5 . H ypercholesterolemia - E78.00 N [...] MD Date: Generated for Timothy kennedy/Ngoc/eTransmitting on: 07/02/2024 09:33 AM EST History and Physical Notes * [...]
--- OUTSIDE RECORDS SUMMARY | 2024-06-14 09:47 | XMS_ITS ---
Author Organization Meño Edwards III, MD Address [address] [place] [address] Care Team Providers Care Manager Plant Name Role Phone Dr. Meño Edwards III Primary Care Provider REASON FOR VISIT Message Social History Sex Assigned At : Social History Observation Description Sex Assigned At Female Encounters Encounter Location Date Provider Diagnosis Meño Edwards III, MD [address] [place] [address] [place] [address] 06/14/2024 Meño Edwards Plan Of Treatment Next Appt Details Provider Name:Meño Edwards , 07/10/2025 09:30:00 AM, [address] [place] [address] [place], [address], Provider Name:Meño Edwards , 04/23/2026 09:30:00 AM, [address] [place] [address] [place], [address], Progress Notes * Jacy DOMINIQUE SDOB: [birth year] (69 yo F)Acc No.[id number]:06/14/2024 Patient: Aidee ADAMSIMBA Jacy Alexandro :1955 A ge:69 Y S ex:Female Address:[place] [address] * true * Date: Generated for Printi ng/Faxing/eTransmitting on: 07/02/2024 09:32 AM EST
--- OUTSIDE RECORDS SUMMARY | 2024-08-23 04:30 | XMS_ITS ---
Author Organization Meño Edwards III, MD Address [address] [address] Care Team Providers Care In Store Representative Name Role Phone Dr. Meño Edwards III [...] Date Provider Diagnosis Meño Edwards III, MD [address] [place] [address] [address], [place] [address] 08/23/2024 Meño Edwards Underweight R63.6 ; CKD [...] list for a kidney transplant by her counseling specialist. 08/23/2024 Mild intermittent asthma without complication (ICD-10 - J45.20) She has had no difficulty with asthma lately. She has an inhaler which she has not been using. 08/23/2024 Thrombocytopenia (ICD-10 - D69.6) She has had no bleeding and is avoiding aspirin. 08/23/2024 Thyroiditis (ICD-10 - E06.9) This is not an active problem. She remains under the care of her credit balance specialist. She is asymptomatic at this time. 08/23/2024 [...] Provider Name:Meño Edwards , 07/10/2025 09:30:00 AM, [address] [place] [address] [address], [place], [address], Provider Name:Meño Edwards , 04/23/2026 09:30:00 AM, [address] [place] [address] [address], [place], [address], Progress Notes * Jacy DOMINIQUE SDOB: [birth year] (69 yo F)Acc No.[id number]:08/23/2024 Progress Notes Patient: Jacy GARCIA Provider: Wan Edwards MD :1955 A ge:69 Y S ex:Female Date:08/23/2024 Address:[address] [place] [address] [place], [id number] Subjective: * Chief Complaints: * U nderweightPancytopeniaAsthmaCKDGoutMacular degenerationOn kidney transplant list * HPI: C OVID-19 Screening: moving to [place] dont know when. Questions H ave you [...] her new glasses. She has seen an bookkeeping machine operator twice this year for this issue. The [...] w isdom teeth extraction tonsillectomy septum repair [id number] right cataract surgery 2012colonoscopy, adenomatous polyp 2004colonoscopy, [...] S he is single and comes fom [facility]. She has no children. * Medications: T [...] reconciled with the patient * Allergies: S idvya[Allergies Verified] Objective: * Vitals: H t: 65, [...] list for a kidney transplant by her counseling specialist. 2 . U nderweight - R63.6 N [...] She remains under the care of her credit balance specialist. She is asymptomatic at this time. 6 [...] 0 08/23/2024 Generated for Deepikai brent/Ngoc/eTransmitting on: 07/02/2024 09:33 AM EST History and [...]
--- OUTSIDE RECORDS SUMMARY | 2024-08-31 07:11 | XMS_ITS ---
Author Organization Meño Edwards III, MD Address [address] [place] [address] Care Team Providers Care Sports Internship Name Role Phone Dr. Meño Edwards III [...] Provider Diagnosis Meño Edwards III, MD [address] [place] [address] [place] [address] 08/31/2024 Meño Edwards Plan Of Treatment Medication Medication Name Sig Start Date Stop Date Notes amLODIPine Besylate 5 MG 1 tablet Orally Once a day for 30 days Next Appt Details Provider Name:Meño Edwards , 07/10/2025 09:30:00 AM, [address] [place] [address] [place], [address], Provider Name:Meño Edwards , 04/23/2026 09:30:00 AM, [address] [place] [address] [place], [address], Progress Notes * Jacy DOMINIQUE SDOB: [birth year] (69 yo F)Acc No.[id number]:08/31/2024 Patient: Jacy GARCIA :1955 A ge:69 Y S ex:Female [facility] [place] [address] * Refills Refill amLODIPine Besylate Tablet, 5 MG, Orally, 30 Tablet, 1 tablet, Once a day, 30 days, Refills=11 * true * Date: Generated for Timothy kennedy/Ngoc/Yogesh on: 07/02/2024 09:32 AM EST
--- OUTSIDE RECORDS SUMMARY | 2024-11-21 04:30 | XMS_ITS ---
Author Organization Meño Edwards III, MD Address [address] [place] [address] Care Team Providers Care Maintenance Coordinator Name Role Phone Dr. Meño Edwards III Primary Care Provider [phone] Allergies Allergen (clinical drug ingredient) Drug/Non Drug [...] Date Provider Diagnosis Meño Edwards III, MD [address] [place] [address] [address], [place] [address] 11/21/2024 Meño Edwards Underweight R63.6 ; Pancytopenia [...] She remains under the care of her allied health professional. She is asymptomatic at this time. 11/21/2024 [...] under the care of Dr. Ashford, her business analytics director. She is now on a kidney transplant [...] Provider Name:Meño Edwards , 07/10/2025 09:30:00 AM, [address] [place] [address] [address] [place], [address], Provider Name:Meño dEwards , 04/23/2026 09:30:00 AM, [address] [place] [address] [place], [address], Progress Notes * Jacy DOMINIQUE SDOB: [birth year] (69 yo F)Acc No.[id number]:11/21/2024 Progress Notes Patient: Jacy GARCIA Provider: Wan Edwards MD :1955 A ge:69 Y S ex:Female Date:11/21/2024 Address: [address] [id number] Subjective: * Chief Complaints: * C hronic [...] today. She is going to see her business analytics director next week and will have blood work [...] w isdom teeth extraction tonsillectomy septum repair [id number] right cataract surgery 2012colonoscopy, adenomatous polyp 2004colonoscopy, [...] S he is single and comes fom [facility]. She has no children. * Medications: [...] She remains under the care of her allied health professional. She is asymptomatic at this time. 7 [...] under the care of Dr. Ashford, her business analytics director. She is now on a kidney transplant [...] 0 11/21/2024 Generated for Deepikai brent/Ngoc/Angelaitting on: 07/02/2024 09:32 AM EST History and [...]
--- OUTSIDE RECORDS SUMMARY | 2025-01-11 04:59 | XMS_ITS ---
Author Organization Meño Edwards III, MD Address [address] [place] [address] Care Team Providers Care Information Writer Name Role Phone Dr. Meño Edwards III Primary Care Provider [phone] REASON FOR VISIT Rx Request Social History Sex Assigned At : Social History Observation Description Sex Assigned At Female Encounters Encounter Location Date Provider Diagnosis Meño Edwards III, MD [address] [place] [address] [place] [address] 01/11/2025 Meño Edwards Plan Of Treatment Next Appt Details Provider Name:Meño Edwards , 07/10/2025 09:30:00 AM, [address] [place] [address] [place], [address], Provider Name:Meño Edwards , 04/23/2026 09:30:00 AM, [address] [place] [address] [place], [address], Progress Notes * Jacy DOMINIQUE SDOB: [birth year] (69 yo F)Acc No.[id number]:01/11/2025 Patient: Aidee ADAMSIMBA Jacy Alexandro :1955 A ge:69 Y S ex:Female Address:[place] [address] * true * Date: Generated for Printi ng/Faxing/eTransmitting on: 07/02/2024 09:31 AM EST
--- OUTSIDE RECORDS SUMMARY | 2025-01-11 06:51 | XMS_ITS ---
Author Organization Meño Edwards III, MD Address [address] [place] [address] Care Team Providers Care Operations Recruiter Name Role Phone Dr. Meño Edwards III Primary Care Provider [phone] Medications Medication SIG (Take, Route, Frequency, Duration) Notes Start Date End Date Status Amoxicillin-Pot Clavulanate 875-125 MG 1 tablet Orally every 12 hrs for 7 days 01/11/2025 01/18/2025 Active Social History Sex Assigned At : Social History Observation Description Sex Assigned At Female Encounters Encounter Location Date Provider Diagnosis Meño Edwards III, MD [address] [address] [place] [address] 01/11/2025 Meño Edwards Plan Of Treatment Medication Medication Name Sig Start Date Stop Date Notes Amoxicillin-Pot Clavulanate 875-125 MG 1 tablet Orally every 12 hrs for 7 days 01/11/2025 01/18/2025 Next Appt Details Provider Name:Meño Edwards , 07/10/2025 09:30:00 AM, [address] [place] [address] [place], [address], Provider Name:Meño Edwards , 04/23/2026 09:30:00 AM, [address] [place] [address] [place], [address], Progress Notes * Jacy DOMINIQUE SDOB: [birth year] (69 yo F)Acc No.[id number]:01/11/2025 Patient: Jacy GARCIA :1955 A ge:69 Y S ex:Female [facility] [place] [address] * Refills Start Amoxicillin-Pot Clavulanate Tablet, 875-125 MG, Orally, 14 Tablet, 1 tablet, every 12 hrs, 7 days, Refills=0 * true * Date: Generated for Timothy kennedy/Ngoc/Angelaitting on: 07/02/2024 09:31 AM EST
--- OUTSIDE RECORDS SUMMARY | 2025-04-22 04:30 | XMS_ITS ---
Author Organization Meño Edwards III, MD Address [address] [place] [address] Care Team Providers Care Building Repair Maintenance Supervisor Name Role Phone Dr. Meño Edwards III [...] Date Provider Diagnosis Meño Edwards III, MD [address] [place] [address] DR [address], [place] [id number] 04/22/2025 Meño Edwards Underweight R63.6 ; Pancytopenia [...] Provider Name:Meño Edwards , 07/10/2025 09:30:00 AM, [address] [place] [address] [address], [place], [address], Provider Name:Meño Edwards , 04/23/2026 09:30:00 AM, [address] [place] [address] [address], [place], [address], Progress Notes * Jacy DOMINIQUE SDOB: [birth year] (70 yo F)Acc No.[id number]:04/22/2025 Progress Notes Patient: Jacy GARCIA Provider: Wan Edwards MD :1955 A ge:70 Y S ex:Female Date:04/22/2025 Address:[address] [place], [place] [address]AMINA [id number] Subjective: * Chief Complaints: * A nnual [...] w isdom teeth extraction tonsillectomy septum repair [id number] right cataract surgery 2012colonoscopy, adenomatous polyp 2004colonoscopy, [...] 95 (Ref Range: >40 mg/dL) * Lab:[facility] * Collection Date 04/17/2025 [...] auscultation . BREASTS: N ot examined, Prefers ECCLESIASTICAL WORKER. ABDOMEN: b owel sounds normal, no ascites, no organomegaly, no mass, underweight. RECTAL EXAM: n ot examined, Prefers ECCLESIASTICAL WORKER. MUSCULOSKELETAL: e xtremities unremarkable, no clubbing, cyanosis [...] Wan Edwards MD Date: Generated for Timothy kennedy/Ngoc/Frankransmitting on: 07/02/2024 09:31 AM EST History and [...] PULSES: normal BREASTS: Not examined, Prefer s ECCLESIASTICAL WORKER MUSCULOSKELETAL: extremities unremark able, no clubbing, cyanosis or edema LYMPH NODES: no enlarged lymph no ivett,spleen normal RECTAL EXAM: not examined, Prefer s ECCLESIASTICAL WORKER PSYCH: alert, oriented: goo d eye contact: cooperative with exam: cognitive function intact: thought process logical, goal directed: speech clear ORAL CAVITY: normal, unremarkable
--- NOTE | 2025-05-02 09:03 | A.OFFVIS_ITS ---
Intake Visit Reasons: urinary incontinence Intake Note: New patient presents today for initial visit for urinary incontinence Urology Medication:Allopurinol Blood Thinner:None Antibiotic Allergies:None PVR:0ml Allergies No Known Allergies Allergy (Verified 05/02/25 09:03) HPI Comments Details: 05/02/2025--Jacy is a 70-year-old female Hong evaluation for urinary incontinence. History of Present Illness The patient is a 70-year-old female presenting with urinary incontinence. She describes the incontinence as a nuisance, with occasional leakage incidents, sometimes occurring without her awareness. An incident occurred where she woke up urinating while asleep, which she recalls happening before her fdc. The patient is on the list for a kidney transplant. She is not currently on dialysis, and Nephrology is monitoring her kidney function. Results - Urinalysis 3+ protein, trace blood. Plan 1. Urinary Incontinence - Referral to pelvic floor physical therapy for muscle strengthening exercises. - Advised to avoid caffeine and maintain a regular bathroom schedule to manage symptoms. - Order an ultrasound of the kidneys- Schedule a FU cystoscopy to evaluate bladder. [facility] Medical History Degenerative arthritis of cervical spine Osteoarthritis Hypothyroidism Anemia Thrombocytopenia Chronic kidney disease DDD (degenerative disc disease) Rotator cuff arthropathy of right shoulder Neck pain Low back pain Single kidney Environmental allergies Asthma Surgical History Hx of nasal septoplasty History of tonsillectomy and adenoidectomy Hx of colonoscopy Hx of bilateral cataract extraction Social History Alcohol intake: current Alcohol intake frequency: holidays/special occasions only Review of Systems Const All systems reviewed & are unremarkable except as noted in HPI and below Reports no additional complaints Eyes Reports no additional complaints ENT Reports no additional complaints Card Reports no additional complaints Resp Reports no additional complaints GI Reports no additional complaints Reports as per HPI Musc Reports no additional complaints Skin/Breast Reports system reviewed and no additional complaints, except as documented Neuro Reports no additional complaints Psych Reports no additional complaints Endo Reports no additional complaints Ashish/Lymph Reports no additional complaints Aller/Immun Reports no additional complaints Physical Exam Const General: cooperative, healthy appearing and no acute distress Orientation/consciousness: patient oriented x3 HEENT Head: Yes normal to inspection, Yes normocephalic and Yes atraumatic Eyes Conjunctivae: conjunctivae normal Neck Neck: Yes normal visual inspection and Yes trachea midline Chest Chest palpation & inspection: normal inspection of the chest Resp Effort & Inspection: normal respiratory effort GI Inspection: Yes normal to inspection Neuro General: patient oriented x3 Psych Appearance: grossly normal Office Procedures Post Void Residual Post Residual Void Post Void Residual (PVR): 0 [id number] Void Residual by ultrasound Results AMB Urinalysis, Automated UA Leukoctes 0 Fatoumata/uL Last Edit by Erin Allen on 05/02/25 16:08 UA Nitrite Negative Last Edit by Erin Allen on 05/02/25 16:08 UA Urobilinogen 0.2 mg/dL Last Edit by Erin Allen on 05/02/25 16:08 UA Protein 300 mg/dL Last Edit by Erin Allen on 05/02/25 16:08 UA pH 5.5 Last Edit by Erin Allen on 05/02/25 16:08 UA Blood 10 Dakota/uL Last Edit by Erin Allen on 05/02/25 16:08 UA Specific [place] 1.010 Last Edit by Erin Allen on 05/02/25 16:08 UA Ketone Negative Last Edit by Erin Allen on 05/02/25 16:08 UA Bilirubin 0 mg/dL Last Edit by Erin Allen on 05/02/25 16:08 UA Glucose 0 mg/dL Last Edit by Erin Allen on 05/02/25 16:08 Results Reviewed Results Reviewed: Laboratory Last Values Urine pH (Auto) 5.5 05/02/25 12:43 Specific [place] (Auto) 1.010 05/02/25 12:43 Urine Protein (Auto) 300 mg/dL 05/02/25 12:43 Glucose (UA)(Auto) 0 mg/dL 05/02/25 12:43 Urine Ketones (Auto) Negative 05/02/25 12:43 Urine Blood (Auto) 10 [place]/uL 05/02/25 12:43 Urine Nitrite (Auto) Negative 05/02/25 12:43 Urine Bilirubin (Auto) 0 mg/dL 05/02/25 12:43 Urine Urobilinogen (Auto) 0.2 mg/dL 05/02/25 12:43 Leukocyte Esterase (Auto) 0 Fatoumata/uL 05/02/25 12:43 Assessment & Plan Assessment & Plan (1) CKD (chronic kidney disease) stage 4, GFR 15-29 ml/min: Code(s): N18.4 - Chronic kidney disease, stage 4 (severe) Category: Medical (2) Urinary incontinence: Code(s): R32 - Unspecified urinary incontinence Category: Medical Plan Plan 1. Urinary Incontinence - Referral to pelvic floor physical therapy for muscle strengthening exercises. - Advised to avoid caffeine and maintain a regular bathroom schedule to manage symptoms. - Order an ultrasound of the kidneys- Schedule a FU cystoscopy to evaluate bladder. Orders: Orders AMB Urinalysis Automated Today Z13.9 - Encounter for screening, unspecified AMB Post Void Residual by ultrasound Today N39.498 - Other specified urinary incontinence Patient Instructions: The patient had an opportunity to ask questions regarding treatment plan. The patient expressed understanding and agreement with the above treatment plan. The patient is aware they should contact our office by phone for worsening of t heir current condition or the appearance of new symptoms. Compliance is encouraged with any medications and followup testing that is ordered. It is a privilege to be allowed the opportunity to participate in the urologic care of your patient. If you have any questions or concerns regarding treatment for the above conditions please do not hesitate to contact me. The office telephone contact is [phone]. This note is constructed in part using voice recognition software. While every effort has been made to ensure accuracy research and development director errors may have been included. Yours sincerely, Aaron Ross MD Scribe Plan - Not visible on output: Patient was informed and verbally consented to the use of an ambient scribe for clinic note documentation during this visit. Coding Level of Care Code New Pt Level 4 (82723) Diagnoses CKD (chronic kidney disease) stage 4, GFR 15-29 ml/min N18.4 Urinary incontinence R32 CPT Codes Post Residual Void - PVR CPT Code: 61613-Ftof Void Residual by ultrasound ([id number])
--- OUTSIDE RECORDS SUMMARY | 2025-05-02 09:31 | XMS_ITS | Clinical Summary ---
Author Organization [facility] Address [address] [place] [address] Care Team Providers Care Cushion Filler Name Role Phone Unavailable Primary Care Provider [...]
--- OUTSIDE RECORDS SUMMARY | 2025-05-02 09:32 | XMS_ITS | Continuity of Care Document ---
Author Organization [facility] Address [address] [place] [address] Phone [phone] Social History Type Date Description Comments Sex Female Sex Unknown Medical Devices Description No Information Available Encounters Description No Information Available Assessments Description No Information Available Plan of Treatment No Information Available Functional Status Description No Information Available Mental Status Description No Information Available Referrals Description No Information Available
--- OUTSIDE RECORDS SUMMARY | 2025-05-02 09:32 | XMS_ITS | Patient Health Record ---
Author [facility] Address [address] [address] Care Team Providers Care Office Services Coordinator Name Role Phone Meño Edwards MD Primary Care Provider London Méndez Unavailable [phone] Allergies Allergen (clinical drug ingredient) Drug/Non Drug [...] Date Coverage End Date Medicare National Govt [employer] [address] [place] [address] [id number] Jacy Goldberg Self - patient is the insured [employer] [address] [place] [address] [id number] Jacy Goldberg Self - patient is the insured Medical (General) History Medical History History ICD Code asthma Back pain CAD (Cholesterol) Cataracts Measles Mumps Kidney disease chronic sinusitis Warts Surgical History Surgery Date(Month/Year) tonsillectomy and adenoidectomy wisdom teeth extraction 1971 cataract surgery 10/28/2015 deviated septum repair 1976
--- OUTSIDE RECORDS SUMMARY | 2025-05-02 09:32 | XMS_ITS | Patient Health Record ---
Author Organization Meño Edwards III, MD Address [address] [place] [address] Care Team Providers Care Road Worker Name Role Phone Dr. Meño Edwards III Primary Care Provider [phone] Allergies Allergen (clinical drug ingredient) Drug/Non Drug Allergy documented on EMR Reaction Allergy Type Onset Date Status No Known Drug Allergy Unknown Drug Allergy Active No Known Food Allergy Unknown Drug Allergy Active Seasonale Unknown Drug Allergy Active Results Component Value Reference Range Notes Electrolytes Reviewed date:06/04/2024 05:33:48 AM Interpretation: Performing Lab:[address] [address] Notes/Report: Sodium 142 135-145 mmol/L Potassium 5.1 3.3-5.1 mmol/L Chloride 107 96-108 mmol/L Carbon Dioxide 29 22-29 mmol/L Anion Gap 11 12-20 Blood Urea Nitrogen Reviewed date:06/04/2024 05:33:48 AM Interpretation: Performing Lab:[facility], [address] [place] [phone] Notes/Report: Blood Urea Nitrogen 80 9-16 mg/dL Creatinine Reviewed date:06/04/2024 05:33:48 AM Interpretation: Performing Lab:[facility], [address] [place] [phone] Notes/Report: Creatinine 3.57 0.5-1.4 mg/dL Estimated Glomerular Filt Rate 13 Chronic Kidney Disease: Estimated GFR < 60 mL/min/1.73m2 Severe Kidney Disease: Estimated GFR < 15 mL/min/1.73m2 Complete Blood Count Auto Di ff Reviewed date:08/25/2024 06:24:46 PM Interpretation: Performing Lab:[facility], [address] [place] [phone] Notes/Report: White Blood Count 4.5 4.8-10.8 X10*3/uL [...] NRBC Abs Auto 0.000 0.0-0.012 X10*3/uL Comprehensive [place]. Panel Fa st Reviewed date:08/25/2024 06:24:46 PM Interpretation: Performing Lab:[facility], [address] [place] [address] Notes/Report: Sodium 143 135-145 mmol/L Potassium 5.4 [...] Panel Reviewed date:08/25/2024 06:24:46 PM Interpretation: Performing Lab:[address] [address] Notes/Report: Triglycerides 125 <150 mg/dL Desirable Triglyceride: [...] Thyroxine) Reviewed date:08/25/2024 06:24:46 PM Interpretation: Performing Lab:[address] [address] Notes/Report: Free T4 (Free Thyroxine) 0.93 0.71-1.85 ng/dL Thyroid Stimulating Hormone Reviewed date:08/25/2024 06:24:47 PM Interpretation: Performing Lab:[facility], [address] [place] [phone] Notes/Report: Thyroid Stimulating Hormone 4.83 0.32-4.0 uIU/mL Note: A sustained TSH level above 2.5 uIU/mL may warrant further investigation. TSH 3rd Generation ([facility]) Complete Blood Count Auto Di ff Reviewed date:09/09/2024 10:16:33 AM Interpretation: Performing Lab:[facility], [address] [place] [address] Notes/Report: White Blood Count 4.3 4.8-10.8 X10*3/uL [...] Electrolytes Reviewed date:09/09/2024 10:16:33 AM Interpretation: Performing Lab:[facility], [address] [place] [address] Notes/Report: Sodium 141 135-145 mmol/L Potassium 5.4 3.3-5.1 mmol/L Chloride 112 96-108 mmol/L Carbon Dioxide 20 22-29 mmol/L Anion Gap 14 12-20 Blood Urea Nitrogen Reviewed date:09/09/2024 10:16:33 AM Interpretation: Performing Lab:[facility], [address] [place] [phone] Notes/Report: Blood Urea Nitrogen 99 9-16 mg/dL Creatinine Reviewed date:09/09/2024 10:16:33 AM Interpretation: Performing Lab:[facility], [address] [place] [phone] Notes/Report: Creatinine 3.45 0.5-1.4 mg/dL Estimated Glomerular Filt Rate 13 Chronic Kidney Disease: Estimated GFR < 60 mL/min/1.73m2 Severe Kidney Disease: Estimated GFR < 15 mL/min/1.73m2 Calcium Reviewed date:09/09/2024 10:16:33 AM Interpretation: Performing Lab:[facility], [address] [place] [phone] Notes/Report: Calcium 9.0 8.4-10.2 mg/dL IRON PROFILE Reviewed date:09/09/2024 10:16:33 AM Interpretation: Performing Lab:[facility], [address] [place] [phone] Notes/Report: Iron 85 30-160 mcg/dL Total Iron Binding Capacity 344 228-428 mcg/dL Percent Iron Saturation 25 15-50 % Unsaturated Iron Binding 259 Ferritin Reviewed date:09/09/2024 10:16:33 AM Interpretation: Performing Lab:[facility], [address] [place] [phone] Notes/Report: Ferritin 50 10-250 ng/mL Vitamin D 25-OH Total Reviewed date:09/09/2024 10:16:33 AM Interpretation: Performing Lab:[facility], [address] [place] [phone] Notes/Report: Vitamin D 25-OH Total 37.3 >30 [...] Intact Reviewed date:09/09/2024 10:16:33 AM Interpretation: Performing Lab:[facility], [address] [place] [phone] Notes/Report: Parathyroid Hormone Intact 289.2 8.7-77.1 pg/mL MAMMOGRAM DIGITAL BILATERAL SCREEN Reviewed date:04/22/2025 09:38:00 AM Interpretation:undefined Performing Lab: Notes/Report: undefined MM tomosynthesis screening B I Reviewed date:10/05/2024 08:33:40 PM Interpretation: Performing Lab: Notes/Report: [address] [place] [address] Mammography Report Signed Patient: Jacy Goldberg MR#: [id number] : 1955 Acct:[id number] Age/Sex: 69 / F ADM Date: 09/24/24 Loc: HO.MAMMO Attending Dr: Meño Edwards MD Ordering Physician: Meño Edwards MD Results: 2Benign Findings Date of Service: 09/24/24 Follow Up: 1 Year From Orig inal Mammogram Procedure(s): MM tomosynthesis screening BI Accession Number(s): [id number] cc: Meño Edwards MD EXAMINATION: MM SCREENING [...] 09/29/24 1733 DD/ 0830 TD/TT: 09/24/24 0852 Forming Press Operator: [facility] [address] [place] [address] Mammography Report Signed Patient: Shubham Goldberg MR#: [id number] : 1955 Acct:[id number] Age/Sex: 69 / F ADM Date: 09/24/24 Loc: HO.MAMMO Attending Dr: Meño Edwards MD Ordering Physician: Meño Edwards MD Results: 2Benign Findings Date of Service: 09/24/24 Follow Up: 1 Year From [facility] Mammogram Procedure(s): MM tomosynthesis screening BI Accession Number(s): [id number] cc: Meño Edwards MD EXAMINATION: MM SCREENING [...] OV> 09/29/24 1733 DD/ TD/TT: 09/24/24 0852 Forming Press Operator: Complete Blood Count Auto Di ff Reviewed date:02/27/2025 04:48:33 AM Interpretation: Performing Lab:[facility], [address] [place] [phone] Notes/Report: White Blood Count 5.4 4.8-10.8 X10*3/uL [...] Electrolytes Reviewed date:02/27/2025 04:48:33 AM Interpretation: Performing Lab:[facility], [address] [place] [phone] Notes/Report: Sodium 138 135-145 mmol/L Potassium 5.4 3.3-5.1 mmol/L Chloride 103 96-108 mmol/L Carbon Dioxide 26 22-29 mmol/L Anion Gap 14 12-20 Blood Urea Nitrogen Reviewed date:02/27/2025 04:48:33 AM Interpretation: Performing Lab:[facility], [address] [place] [phone] Notes/Report: Blood Urea Nitrogen 70 9-16 mg/dL Creatinine Reviewed date:02/27/2025 04:48:33 AM Interpretation: Performing Lab:[facility], [address] [place] [phone] Notes/Report: Creatinine 3.67 0.5-1.4 mg/dL Estimated Glomerular Filt Rate 12 Chronic Kidney Disease: Estimated GFR < 60 mL/min/1.73m2 Severe Kidney Disease: Estimated GFR < 15 mL/min/1.73m2 Calcium Reviewed date:02/27/2025 04:48:33 AM Interpretation: Performing Lab:[facility], [address] [place] [phone] Notes/Report: Calcium 9.1 8.4-10.2 mg/dL Complete Blood Count Auto Di ff Reviewed date:03/31/2025 07:57:19 AM Interpretation: Performing Lab:[facility], [address] [place] [phone] Notes/Report: White Blood Count 3.2 4.8-10.8 X10*3/uL [...] Electrolytes Reviewed date:03/31/2025 07:57:19 AM Interpretation: Performing Lab:[facility], [address] [place] [phone] Notes/Report: Sodium 145 135-145 mmol/L Potassium 4.8 3.3-5.1 mmol/L Chloride 112 96-108 mmol/L Carbon Dioxide 24 22-29 mmol/L Anion Gap 14 12-20 Blood Urea Nitrogen Reviewed date:03/31/2025 07:57:19 AM Interpretation: Performing Lab:[address] [address] Notes/Report: Blood Urea Nitrogen 75 9-16 mg/dL Creatinine Reviewed date:03/31/2025 07:57:19 AM Interpretation: Performing Lab:[facility], [address] [place] [phone] Notes/Report: Creatinine 4.52 0.5-1.4 mg/dL Critical value for test(s): CREA Results called to and read back by: DR. ZURITA Person calling: [email or web address] Date: 03-26-25 Time: 1834 Estimated Glomerular Filt Rate 10 Chronic Kidney Disease: Estimated GFR < 60 mL/min/1.73m2 Severe Kidney Disease: Estimated GFR < 15 mL/min/1.73m2 Calcium Reviewed date:03/31/2025 07:57:19 AM Interpretation: Performing Lab:[address] [address] Notes/Report: Calcium 8.6 8.4-10.2 mg/dL Complete Blood Count Auto Di ff Reviewed date:04/21/2025 07:29:42 AM Interpretation: Performing Lab:[facility], [address] [place] [phone] Notes/Report: White Blood Count 4.2 4.8-10.8 X10*3/uL [...] NRBC Abs Auto 0.000 0.0-0.012 X10*3/uL Comprehensive [place]. Panel Fa st Reviewed date:04/21/2025 07:29:42 AM Interpretation: Performing Lab:[facility], [address] [place] [phone] Notes/Report: Sodium 146 135-145 mmol/L Potassium 4.4 [...] Alkaline Phosphatase 144 39-117 U/L Lipid Panel Reviewed date:04/21/2025 07:29:42 AM Interpretation: Performing Lab:[facility], [address] [place] [address] Notes/Report: Triglycerides 106 <150 mg/dL Desirable Triglyceride: [...] PUFFS BY MOUTH TWICE DAILY Inhalation Active amLODIPine Besylate 5 MG TAKE 1 TABLET B Y MOUTH EVERY DAY Active Vitamin D3-Vitamin C Active Allopurinol 100 MG TAKE 1 TABLET BY AYESHA TH DAILY Oral Active Atorvastatin Calcium 10 MG TAKE 1 TABLET BY MOUTH EVERY DAY Active ProAir HFA 108 (90 Base) MCG/ACT 2 puffs as needed Inhalation every 4 hrs PRN Active Carvedilol 6.25 MG 1 tablet with food O ral Twice a day Active Immunizations Vaccine Route Administration Date Status [...] Diphtheria Toxoids Adsorbed IM Intramuscular 07/22/2022 Administered COVID Pfizer Bivalent Unknown 10/27/2022 Administered COVID Pfizer Bivalent Unknown 03/23/2022 Administered Fluzone High-Dose (HD-IIV3) Unknown 03/15/2024 Administered MMR Unknown 10/31/2024 Administered Influenza-iiv4 p-free high dose Unknown 03/29/2023 Administered Comirnaty Pfizer COVID-19 12+ Unknown 03/15/2024 Administered Comirnaty Pfizer COVID-19 12+ Unknown 10/20/2023 Administered Comirnaty Pfizer COVID-19 12+ Unknown 03/29/2023 Administered Comirnaty Pfizer COVID-19 12+ Unknown 03/15/2025 Administered Fluzone High-Dose (HD-IIV3) Unknown 03/15/2025 Administered PCV20 Unknown 03/31/2023 Administered MMR Unknown 12/12/2024 Administered RSV vaccine, bivalent, protein subunit RSV prefusion F Unknown 03/31/2023 Administered Social History Tobacco Use: Social History [...] Problem Status W/U Status Risk Notes Problem 460339874 Underweight (R63.6) Active confirmed Her weight has been stable lately with a body mass index of 18. Problem 842596821 Pancytopenia (D61.818) Active confirmed All 3 cell line s have been diminished. This is likely due to her chronic renal failure. The mean cell volume remains slightly elevated. It is being observed carefully. Problem 362728169 Skin cancer (C44.90) Active confirmed he recently had a basal cell carcinoma removed from the right side of her face and her left arm. There was no sign of residual disease today. Problem Hyperlipidemia (72040583) Hyperlipidemia, unspecified (E78.5) Active confirmed her lipids have been stable. No blood work is available today. A fasting lipid profile has been ordered. No change was made in her regimen. Problem Uncomplicated asthma (disorder) (886400520) Unspecified asthma, uncomplicated (J45.909) Active confirmed She has had no episodes of asthma recently. Problem 847128055 Mild intermittent asthma without complication (J45.20) Active confirmed She has had no difficulty with asthma lately. She has an inhaler which she has not been using. Problem 95095483 Cataracts, bilateral (H26.9) Active confirmed She will continue to see the community cultural development officer to resolved these problems. Problem Osteoporosis (32818829) Osteoporosis (M81.0) Active confirmed She has been compliant with his therapy. It was reviewed with her today. Problem 110604353 Osteoarthritis (M19.90) Active confirmed She will continue on current therapy at this time. She will avoid NSAIDs. Problem 15587369 Thyroiditis (E06.9) Active confirmed This is not an active problem. She remains under the care of her ripening room operator. She is asymptomatic at this time. Problem Hypercholesterole brian (38927676) Hypercholestero lemia (E78.00) Active confirmed Comprehensive blood work with a fasting lipid profile is being done periodically. No change in her medication was made today. Her lipids have been controlled. Problem 415707658 Macular degeneration of both eyes, unspecified type (H35.30) Active confirmed Her vision has not changed since her last visit. She really remains under the care of the ophthalmologists . Problem Chronic kidney disease stage 3A (disorder) (769890508) Chronic kidney disease, stage 3a (N18.31) Active confirmed Her GFR is 10. She is on a list to receive a kidney transplant. She may need to begin dialysis if her renal function deteriorates further. She is up-to-date with nephrology. Problem 29713491 Acute idiopathic gout involving toe of left foot (M10.072) Active confirmed The gout has no w resolved and she is on allopurinol. Vital Signs Heart Rate 57 /min 04/22/2025 Temperature 98.4 degrees Fahrenheit 04/22/2025 Blood pressure diastolic 49 mm Hg 04/22/2025 Height 65 in 04/22/2025 Blood pressure systolic 130 mm Hg 04/22/2025 Weight 113 lbs 04/22/2025 BMI 18.8 kg/m2 04/22/2025 Encounters Encounter Location Date Provider Diagnosis Meño Edwards III, MD [address] [place] [address] [place] [address] 08/23/2024 Meño Edwards Underweight R63.6 ; CKD (chronic kidney disease) stage 3, GFR 30-59 ml/min N18.3 ; Mild intermittent asthma without complication J45.20 ; Thrombocytopenia D69.6 ; Thyroiditis E06.9 and Osteoporosis M81.0 Meño Edwards III, MD [address] [place] [address] [place] [address] 11/21/2024 Meño Edwards Underweight R63.6 ; Pancytopenia D61.818 ; Mild intermittent asthma without complication J45.20 ; Osteoarthritis M19.90 ; Osteoporosis M81.0 ; Thyroiditis E06.9 ; Hyperlipidemia, unspecified E78.5 ; Unspecified asthma, uncomplicated J45.909 ; Macular degeneration of both eyes, unspecified type H35.30 ; Skin cancer C44.90 and CKD (chronic kidney disease) stage 3, GFR 30-59 ml/min N18.3 Meño Edwards III, MD [address] [place] [address] [place] [address] 04/22/2025 Meño Edwards Underweight R63.6 ; Pancytopenia D61.818 ; Mild intermittent asthma without complication J45.20 ; Acute idiopathic gout involving toe of left foot M10.072 ; Hyperlipidemia, unspecified E78.5 ; Chronic kidney disease, stage 3a N18.31 ; Osteoporosis M81.0 and Hypercholesterolemia E78.00 Meño Edwards III, MD [address] [place] [address] [place] [address] 06/14/2024 Meño Edwards III, MD [address] [place] [address] [place] [address] 08/31/2024 Meño Edwards III, MD [address] [place] [address] [place] [address] 01/11/2025 Meño Edwards III, MD [address] [place] [address] [place] [address] 01/11/2025 Meño Edwards Assessments Encounter Date Diagnosis (ICD Code) Assessment Notes T reatment Notes Treatment Clinical Notes 08/23/2024 Underweight (ICD-10 [...] list for a kidney transplant by her senior security engineer. 11/21/2024 Underweight (ICD-10 - R63.6) Her weight has been stable lately with a body mass index of 18. 11/21/2024 Pancytopenia (ICD-10 - D61.818) All 3 cell lines have been diminished. This is likely due to her chronic renal failure. The mean cell volume remains slightly elevated. It is being observed carefully. 04/22/2025 Underweight (ICD-10 - R63.6) Her weight [...] which she has not been using. 04/22/2025 Mild intermittent as thma without complication (ICD-10 - J45.20) She has had no difficulty with asthma lately. She has an inhaler which she has not been using. 08/23/2024 Thrombocytopenia (IC D-10 - D69.6) She has had no bleeding and is avoiding aspirin. 11/21/2024 Osteoarthritis (ICD- 10 - M19.90) She will continue on current therapy at this time. She will avoid NSAIDs. 04/22/2025 Acute idiopathic gou t involving toe of left foot (ICD-10 - M10.072) The gout has now resolved and she is on allopurinol. 08/23/2024 Thyroiditis (ICD-10 - E06.9) This is not an active problem. She remains under the care of her ripening room operator. She is asymptomatic at this time. 11/21/2024 Osteoporosis (ICD-10 - M81.0) She has been compliant with his therapy. It was reviewed with her today. 04/22/2025 Hyperlipidemia, unspecified (ICD-10 - E78.5) her lipids have been stable. No blood work is available today. A fasting lipid profile has been ordered. No change was made in her regimen. 08/23/2024 Osteoporosis (ICD-10 - M81.0) She has been compliant with his therapy. It was reviewed with her today. 11/21/2024 Thyroiditis (ICD-10 - E06.9) This is not an active problem. She remains under the care of her ripening room operator. She is asymptomatic at this time. 04/22/2025 Chronic kidney disea se, stage 3a (ICD-10 - N18.31) Her GFR is 10. She is on a list to receive a kidney transplant. She may need to begin dialysis if her renal function deteriorates further. She is up-to-date with nephrology. 11/21/2024 Hyperlipidemia, unspecified (ICD-10 - E78.5) her lipids have been stable. No blood work is available today. A fasting lipid profile has been ordered. No change was made in her regimen. 04/22/2025 Osteoporosis (ICD-10 - M81.0) She has been compliant with his therapy. It was reviewed with her today. 11/21/2024 Unspecified asthma, uncomplicated (ICD-10 - J45.909) She has had no episodes of asthma recently. 04/22/2025 Hypercholesterolemia (ICD-10 - E78.00) Comprehensive blood work with a fasting lipid profile is being done periodically. No change in her medication was made today. Her lipids have been controlled. 11/21/2024 Macular degeneration of both eyes, unspecified [...] the care of Dr. [place], her senior security engineer. She is now on a kidney [...] Thyroxine) 04/19/2024 Next Appt Details Provider Name:Meño Negron Grace , 07/10/2025 09:30:00 AM, [address] [facility] [address], [place], [address], Provider Name:Meño Edwards , 04/23/2026 09:30:00 AM, [address] [place] [address] [address], [place], [address], Insurance Providers Payer Name Payer Address Payer Phone Subscriber Number Group Number Insured Name Patient Relationship to Insured Coverage Start Date Coverage End Date MEDICARE NGS [address] [place] [address] [id number] Jacy Goldberg Self - patient is the insured [facility] [address] [place], [place] [id number] [phone] [id number] Jacy Goldberg Self - patient is the insured Medical (General) History Medical History History ICD Code degenerative arthritis of the cervical s pine spine asthma osteoarthritis hemorhoids thrombocytopenia cataracts last bilateral mammogram 12/18/2012 @ [facility] R&I anemia hyperthyroid abnormal renal function Surgical History Surgery Date(Month/Year) Basal Cell right cheek 2023 Basal Cell removed, Left arm 01/10/2023 biopsy on left index finger 09/2018 colonoscopy, wnl 2008 colonoscopy, adenomatous polyp 2004 right cataract surgery 2011 [id number] septum repair tonsillectomy wisdom teeth extraction Hospitalization History Reason Date(Month/Year) No history
--- OUTSIDE RECORDS SUMMARY | 2025-05-02 09:33 | XMS_ITS | Patient Health Record ---
Author Organization [facility] Address [address] [place] [address] Care Team Providers Care Director Prison Name Role Phone Meño Edwards MD Primary Care Provider Unavailab Fady Denson Jr Unavailable Allergies Allergen (clinical drug ingredient) [...] Status Risk Notes Problem Colon cancer screening (003181199) Colon cancer screening (V76.51) Active confirmed Problem Colon cancer screening (490688634) Colon cancer screening (Z12.11) Active confirmed Problem History of polyp of colon (situation) (930141664) Personal history of colonic polyps (Z86.010) Active confirmed Problem Long-term current use of drug therapy (528261678) Long-term current use of high risk medication other than anticoagulant (Z79.899) Active confirmed Plan Of Treatment Future Test Test Name Order Date COLONOSCOPY 04/01/2014 COLONOSCOPY 07/28/2020 Insurance Providers Payer Name Payer Address Payer Phone Subscriber Number Group Number Insured Name Patient Relationship to Insured Coverage Start Date Coverage End Date MEDICARE OF [place] [address] [place] [address] [id number] MENA DOMINIQUE Self - patient is the insured [employer] CLAIMS [address] [place] [address] [id number] MENA DOMINIQUE Self - patient is the [...]
--- OUTSIDE RECORDS SUMMARY | 2025-05-02 09:33 | XMS_ITS | Clinical Summary ---
Author Organization [facility] Address [address] [place] [address] Phone Care Team Providers Care Assembler Piano Name Role Phone Meño Edwards MD Primary Care Provider [phone] Allergies Active Allergy Reactions Criticality Noted Date [...] patient's age to complete this topic Insurance [facility] Medicare [facility] Medicare Care Teams Assembler Piano Relationship Specialty Start Date End Date Meño Edwards MD [address] [place] [address] [phone] [place], [place] PCP - General 07/07/20
== END 2025-05-02 10:11 | disposition home or self-care (01) ==
LOC: HO.HUSH 08:51
PROVIDERS: PCP Internal Medicine Medical Oncology; Visit Provider Urology
DX: N18.4 Chronic kidney disease, stage 4 (severe) (principal); R32 Unspecified urinary incontinence; Z13.9 Encounter for screening, unspecified
CPT/HCPCS: 99204

== ENCOUNTER → 2025-05-02 08:51 | Outpatient (BNVA) | payer MEDICARE, SELFPAY | PROVIDERS: PCP Internal Medicine Medical Oncology; Visit Provider Urology | DX: N18.4 Chronic kidney disease, stage 4 (severe) (principal); R32 Unspecified urinary incontinence | CPT/HCPCS: 51798; 81003; 99202 ==

== ENCOUNTER 2025-06-04 09:07 | Outpatient (REF) | payer MEDICARE, SELFPAY ==
[2025-06-04 10:16] LABS: MANUAL DIFF FLAG NO
[2025-06-04 10:43] LABS: Anion Gap 14 (12-20); Blood Urea Nitrogen 98 mg/dL (9-16); Calcium 9.1 mg/dL (8.4-10.2); Carbon Dioxide 27 mmol/L (22-29); Chloride 107 mmol/L (96-108); Estimated Glomerular Filt Rate 11; Potassium 4.5 mmol/L (3.3-5.1); Sodium 143 mmol/L (135-145)
[2025-06-04 10:52] LABS: Hematocrit 26.4 % (37.0-47.0); Hemoglobin 8.0 g/dl (12.0-16.0); Imm Gran Abs Auto 0.01 X10*3/uL (0.00-0.03); Imm Gran Pct Auto 0.2 % (0.0-0.4); Lymphocytes Absolute Auto 0.9 X10*3/uL (1.2-4.9); Mean Corpuscular HGB Conc 30.3 g/dl (31.0-35.0); Mean Corpuscular Hemoglobin 30.9 pg (27.0-33.0); Mean Corpuscular Volume 101.9 fL (80.0-98.0); NRBC Abs Auto 0.000 X10*3/uL (0.0-0.012); NRBC Pct Auto 0.0 /100WBC (0.0-0.2); Platelet Count 115 X10*3/uL (160-400); Red Blood Count 2.59 X10*6/uL (4.20-5.50); White Blood Count 4.0 X10*3/uL (4.8-10.8)
== END 2025-06-04 09:08 | disposition home or self-care (01) ==
LOC: HO.10HDL 09:07
PROVIDERS: Visit Provider Internal Medicine Nephrology
DX: N18.4 Chronic kidney disease, stage 4 (severe) (principal); D63.1 Anemia in chronic kidney disease; I15.1 Hypertension secondary to other renal disorders; N25.81 Secondary hyperparathyroidism of renal origin
CPT/HCPCS: 36415; 80051; 82310; 82565; 84520; 85025

== ENCOUNTER 2025-06-07 14:54 | Outpatient (AMB) | payer MEDICARE, SELFPAY ==
--- OUTSIDE RECORDS SUMMARY | 2024-02-03 04:45 | XMS_ITS ---
Author Organization Meño Edwards III, MD Address [address] [address] [place], [place] [address] Care Team Providers Care Grants Assistant Name Role Phone Dr. Meño Edwards III Primary Care Provider Allergies Allergen (clinical drug ingredient) Drug/Non Drug Allergy documented on EMR Reaction Allergy Type Onset Date Status Seasonale Unknown Drug Allergy Active REASON FOR VISIT Pedal edema, Chronic renal failure, Underweight, Asthma, Osteoporosis Medications Medication SIG (Take, Route, Frequency, Duration) Notes Start Date End Date Status Atorvastatin Calcium 10 MG 1 tablet Orally Once a day 08/04/2023 Active Triamcinolone Acetonide 0.1 % External Active Pulmicort Flexhaler 180 MCG/ACT 2 puffs Inhalation Twice a day October-March Active ProAir HFA 108 (90 Base) MCG/ACT 2 puffs as needed Inhalation every 4 hrs PRN Active Vitamin E Active Calcium + D Active Allopurinol 100 MG TAKE 1 TABLET BY MOUTH DAILY Oral Active amLODIPine Besylate 5 MG 1 1/2 tablet Or ally Once a day 08/04/2023 Active Social History Tobacco Use: Social History Observation Description Date Details (start date - stop date) Never Smoker NA - NA Sex Assigned At : Social History Observation Description Sex Assigned At Female Tobacco Use/Smoking Question Answer Notes Patient is a nonsmoker Additional Findings: Tobacco Non-User Aggressive non-smoker Vital Signs Height 65 in 02/03/2024 Weight 104 lbs 02/03/2024 BMI 17.3 kg/m2 02/03/2024 Encounters Encounter Location Date Provider Diagnosis Meño Edwards III, MD [address] [place] [address] [place] [address] 02/03/2024 Meño Edwards Hyperlipidemia, unspecified E78.5 ; Underweight R63.6 ; Mild intermittent asthma without complication J45.20 ; Chronic kidney disease, stage 3a N18.31 and Peripheral edema R60.0 Assessments Encounter Date Diagnosis (ICD Code) Assessment Notes Treatment Notes Treatment Clinical Notes 02/03/2024 Hyperlipidemia, unspecified (ICD-10 - E78.5) No change in her regimen was made today. She will have periodic evaluation of a fasting lipid profile. 02/03/2024 Underweight (ICD-10 - R63.6) Her weight has been stable lately with a body mass index of 17. 02/03/2024 Mild intermittent asthma without complication (ICD-10 - J45.20) She has had no difficulty with asthma lately. She has an inhaler which she has not been using. 02/03/2024 Chronic kidney disease, stage 3a (ICD-10 - N18.31) Her BUN is 70.The creatinine is 2.96. She is up-to-date with nephrology and continues on therapy without fail. 02/03/2024 Peripheral edema (ICD-10 - R60.0) She will continue to hold her amlodipine and use the compression hose and leg elevation. Comprehensive blood work was ordered prior to her decision about diuretics. Plan Of Treatment Medication Medication Name Sig Start Date Stop Date Notes Atorvastatin Calcium 10 MG 1 tablet Oral ly Once a day 08/04/2023 Triamcinolone Acetonide 0.1 % External Pulmicort Flexhaler 180 MCG/ACT 2 puffs Inhalation Twice a day October-March ProAir HFA 108 (90 Base) MCG/ACT 2 puffs as needed Inhalation every 4 hrs PRN Vitamin E Calcium + D Allopurinol 100 MG TAKE 1 TABLET BY AYESHA TH DAILY Oral amLODIPine Besylate 5 MG 1 1/2 tablet Or ally Once a day 08/04/2023 Next Appt Details Follow Up: 6 Weeks, Reason: Office visit Provider Name:Meño Edwards , 07/10/2025 09:30:00 AM, [address] [place] [address] [address], [place], [address], Provider Name:Meño Edwards , 04/23/2026 09:30:00 AM, [address] [place] [address] DR, [address], [facility], [address], Progress Notes * Jacy DOMINIQUE SDOB: [birth year] (69 yo F)Acc No.[id number]:02/03/2024 Patient: Jacy Lombardi Provider: Wan Edwards MD :1955 A ge:69 Y S ex:Female Date:02/03/2024 Address: [id number] Subjective: * Chief Complaints: * P edal edemaChronic renal failureUnderweightAsthmaOsteoporosis * HPI: * : This telehealth visit took place over 15 minutes with the patient at home and me in my office. She gave consent for billing. She says she is feeling better. Her legs have improved somewhat. She is wearing stockings every day. The soles of her feet have a burning feeling. She has no fever. Current therapy was continued. Telehealth L ocation of provider rendering services: { ...} [address] [facility] [address] L ocation of patient: sintia scott listed [...] have been noted. G enitourinary: Frequent urination d enies. M usculoskeletal: Muscle aches d enies. P ainful joints F eet. S ciatica d enies. W eakness d enies. S kin: Itching d enies. R janine d enies. S kin lesion(s)?Swollen feet. N eurologic: Difficulty speaking d enies. D izziness d enies.?Headache d enies. L ow back pain d enies. P sychiatric: Depressed mood d enies. * Medical History: * Surgical History: w isdom teeth extraction tonsillectomy septum repair [id number] right cataract surgery 2012colonoscopy, adenomatous polyp 2004colonoscopy, wnl 2009biopsy on left index finger 09/2018Basal Cell removed, Left arm 01/10/2023 * Hospitalization/Major Diagno stic Procedure: D enies Past Hospitalization * Family History: F ather: 95 yrs, [...] S he is single and comes fom [facility]. She has no children. * Medications: T [...] and reconciled with the patient * Allergies: Alexandro stokes[Allergies Verified] Objective: * Vitals: H t: 65, Wt:104, BMI:17.3, Ht-cm: 165.1, Wt-k.17. Assessment: * Assessment: 1. H yperlipidemia, unspecified - E78.5, No change in her regimen was made today. She will have periodic evaluation of a fasting lipid profile. 2 . U nderweight - R63.6, Her weight has been stable lately with a body mass index of 17. 3 . M ild intermittent asthma without complication - J45.20, She has had no difficulty with asthma lately. She has an inhaler which she has not been using. 4 . C hronic kidney disease, stage 3a - N18.31, Her BUN is 70.The creatinine is 2.96. She is up-to-date with nephrology and continues on therapy without fail. 5 . P eripheral edema - R60.0, She will continue to hold her amlodipine and use the compression hose and leg elevation. Comprehensive blood work was ordered prior to her decision about diuretics. Plan: * Treatment: 2. O thers Continue Pulmicort Flexhaler Aerosol Powder [...] Procedure Codes: 9 9442 PHONE E/M BY APOLONIA 11-20 MIN * Preventive Medicine: Counseling: C are goal follow-up plan: Counseling for abnormal BMI given Y es Below Normal BMI Follow-up D ietary education for weight gain, Dietary management education, guidance, and counseling * Follow Up: 6 Weeks (Reason: Office visit) * Images: * Sign off status: Completed true * Provider: Wan Edwards MD Date: 0 02/03/2024 Generated for Timothy kennedy/Ngoc/Yogesh on: 08/08/2024 07:57 PM EST History and Physical Notes * HPI (History of Present Illness) Category Sub-Category Detail Notes Telehealth Location of [facility] rendering services:: {...} [address] [place] [address] [place] [address] Location of patient:: address listed in demographics [...]
--- OUTSIDE RECORDS SUMMARY | 2024-02-10 05:45 | XMS_ITS ---
Author Organization Meño Edwards III, MD Address [address] [place] [address] Care Team Providers Care Computer Game Programmer Name Role Phone Dr. Meño Edwards III Primary Care Provider Allergies Allergen (clinical drug ingredient) Drug/Non Drug Allergy documented on EMR Reaction Allergy Type Onset Date Status Seasonale Unknown Drug Allergy Active REASON FOR VISIT Pedal edema, Chronic renal failure, Underweight, Osteoporosis Medications Medication SIG (Take, Route, Frequency, Duration) Notes Start Date End Date Status Calcium + D Active Allopurinol 100 MG TAKE 1 TABLET BY MOUTH DAILY Oral Active amLODIPine Besylate 5 MG 1 1/2 tablet Or ally Once a day 08/04/2023 Active Atorvastatin Calcium 10 MG 1 tablet Orally Once a day 08/04/2023 Active Triamcinolone Acetonide 0.1 % External Active Pulmicort Flexhaler 180 MCG/ACT 2 puffs Inhalation Twice a day October-March Active ProAir HFA 108 (90 Base) MCG/ACT 2 puffs as needed Inhalation every 4 hrs PRN Active Vitamin E Active Social History Tobacco Use: Social History Observation Description Date Details (start date - stop date) Never Smoker NA - NA Sex Assigned At : Social History Observation Description Sex Assigned At Female Tobacco Use/Smoking Question Answer Notes Patient is a nonsmoker Additional Findings: Tobacco Non-User Aggressive non-smoker Vital Signs Height 65 in 02/10/2024 Weight 104 lbs 02/10/2024 BMI 17.3 kg/m2 02/10/2024 Encounters Encounter Location Date Provider Diagnosis Meño Edwards III, MD [address] [place] [address] [place] [address] 02/10/2024 Meño Ernstrne Hyperlipidemia, unspecified E78.5 ; Pedal edema R60.0 ; Mild intermittent asthma without complication J45.20 ; Underweight R63.6 ; Acute idiopathic gout involving toe of left foot M10.072 ; Osteoporosis M81.0 and Chronic kidney disease, stage 3a N18.31 Assessments Encounter Date Diagnosis (ICD Code) Assessment Notes Treat ment Notes Treatment Clinical Notes 02/10/2024 Hyperlipidemia, unspecified (ICD-10 - E78.5) her lipids have been stable. No blood work is available today. A fasting lipid profile has been ordered. No change was made in her regimen. 02/10/2024 Pedal edema (ICD-10 - R60.0) She will finish and then stop the diuretic. She will continue to use compression hose. Follow-up visit was arranged. 02/10/2024 Mild intermittent asthma without complication (ICD-10 - J45.20) She has had no difficulty with asthma lately. She has an inhaler which she has not been using. 02/10/2024 Underweight (ICD-10 - R63.6) Her weight has been stable lately with a body mass index of 17. 02/10/2024 Acute idiopathic gout involving toe of left foot (ICD-10 - M10.072) The gout has now resolved and she is on allopurinol. 02/10/2024 Osteoporosis (ICD-10 - M81.0) She has been compliant with his therapy. It was reviewed with her today. 02/10/2024 Chronic kidney disease, stage 3a (ICD-10 - N18.31) Her BUN is 70.The creatinine is 2.96. She is up-to-date with nephrology and continues on therapy without fail. Plan Of Treatment Medication Medication Name Sig Start Date Stop Date Notes Calcium + D Allopurinol 100 MG TAKE 1 TABLET BY AYESHA TH DAILY Oral amLODIPine Besylate 5 MG 1 1/2 tablet Or ally Once a day 08/04/2023 Atorvastatin Calcium 10 MG 1 tablet Oral ly Once a day 08/04/2023 Triamcinolone Acetonide 0.1 % External Pulmicort Flexhaler 180 MCG/ACT 2 puffs Inhalation Twice a day October-March ProAir HFA 108 (90 Base) MCG/ACT 2 puffs as needed Inhalation every 4 hrs PRN Vitamin E Next Appt Details Follow Up: SCHEDULED, Danielle son: OV Provider Name:Meño Ernstrne , 07/10/2025 09:30:00 AM, [address] [place] [address] [address], [place], [address], Provider Name:Meño Reilly Edwards , 04/23/2026 09:30:00 AM, [address] [place] [address] [address], [place], [address], Progress Notes * Jacy DOMINIQUE SDOB: [birth year] (69 yo F)Acc No.[id number]:02/10/2024 Patient: Jacy Lombardi Provider: Wan Edwards MD :1955 A ge:69 Y S ex:Female Date:02/10/2024 Address:[address] [place] [id number] Subjective: * Chief Complaints: * P edal edemaChronic renal failureUnderweightOsteoporosis * HPI: * : This telehealth visit took place over 15 minutes with the patient at home and me in my office. She gave consent for billing. This is a follow-up to the bilateral pedal edema. She has completed a course of diuretic. The edema in the feet has almost completely resolved. The erythema is gone and there is no pain. She is using compression hose but is able to ambulate without difficulty. Telehealth L ocation of provider rendering services: { ...} [address] [facility] [address] L ocation of patient: a ddress listed in demographics for today's visit P atient identification confirmed using: N susanaVILMA reilly T elehealth method: T elephone only. Patient [...] been noted. G enitourinary: Frequent urination a t night. M usculoskeletal: Muscle aches d enies. P ainful joints d enies. S ciatica d enies. W eakness d enies. S kin: Itching d enies. R janine d enies. S kin lesion(s)?Pedal edema is significantly diminished. N eurologic: Difficulty speaking d enies. D izziness d enies.?Headache d enies. L ow back pain d enies. P sychiatric: Depressed mood d enies. * Medical History: * Surgical History: w isdom teeth extraction tonsillectomy septum repair [id number] right cataract surgery 2012colonoscopy, adenomatous polyp 2004colonoscopy, [...] S he is single and comes fom [facility]. She has no children. * Medications: [...] Ht-cm: 165.1, Wt-k.17. Assessment: * Assessment: 1. P edal edema - R60.0, She will finish and then stop the diuretic. She will continue to use compression hose. Follow-up visit was arranged. 2 . H yperlipidemia, unspecified - E78.5, her lipids have been stable. No blood work is available today. A fasting lipid profile has been ordered. No change was made in her regimen. 3 . M ild intermittent asthma without complication - J45.20, She has had no difficulty with asthma lately. She has an inhaler which she has not been using.?4. U nderweight - R63.6, Her weight has been stable lately with a body mass index of 17. 5. A cute idiopathic gout involving toe of left foot - M10.072, The gout has now resolved and she is on allopurinol. 6 . O steoporosis - M81.0, She has been compliant with his therapy. It was reviewed with her today. 7 . C hronic kidney disease, stage 3a - N18.31, Her BUN is 70.The creatinine is 2.96. She is up-to-date with nephrology and continues on therapy without fail.? Plan: * Treatment: 2. O thers Continue [...] BMI Follow-up D ietary education for weight gain * Follow Up: A S SCHEDULED (Reason: OV) * Images: * Sign off status: Completed true * Provider: Wan Edwarsd MD Date: 0 02/10/2024 Generated for Timothy kennedy/Ngoc/Angelaitting on: 1 08/08/2024 07:59 PM EST History and Physical Notes * HPI (History of Present Illness) Category Sub-Category Detail Notes Telehealth Location of [facility] rendering services:: {...} [address] [place] [address] Location of patient:: address listed in demographics [...]
--- OUTSIDE RECORDS SUMMARY | 2024-04-19 04:00 | XMS_ITS ---
Author Organization Meño Edwards III, MD Address [address] [facility] [address] [place] [address] Care Team Providers Care Manager Science Name Role Phone Dr. Meño Edwards III [...] Problem Status W/U Status Risk Notes Problem [id number] Macular degeneration of both eyes, unspecified type [...] Date Provider Diagnosis Meño Edwards III, MD [address] [place] [address] [place] [address] 04/19/2024 Meño Edwards Hyperlipidemia, unsp ecified E78.5 [...] She is under the care of an public policy associate. 04/19/2024 Hypercholesterolemia (ICD-10 - E78.00) Comprehensive blood [...] Migdalia Grace , 07/10/2025 09:30:00 AM, [address] [facility] [address], [place], [address], Provider Name:Meño Edwards , 04/23/2026 09:30:00 AM, [address] [place] [address] [address], [place], [address], Progress Notes * Pillo DOMINIQUEe SDOB: [birth year] (69 yo F)Acc No.[id number]:04/19/2024 Progress Notes Patient: Jacy GARCIA Provider: Wan Edwards MD :1955 A ge:69 Y S ex:Female Date:04/19/2024 Address:[address] [place] [address] [place], [id number] Subjective: * Chief Complaints: * A nnual [...] up-to-date with nephrology. She is otherwise asymptomatic.Her pediatric anesthesiologist saw her recently and told her she [...] w isdom teeth extraction tonsillectomy septum repair [id number] right cataract surgery 2012colonoscopy, adenomatous polyp 2004colonoscopy, [...] S he is single and comes fom [facility]. She has no children. * [...] 08:00 AM)?ValueReference Range?Creatinine (CrCl) 3.04H0.5-1.4 - mg/dL?Creatinine Pvgsobnvr67.5O39-698 - mL/min ?Creatinine, 24Hr Urine0.8L1.0-2.0 - G/Day?Total Volume 24 Hour Qmgwh5933- mL?Creatinine, mg/dL40.82- * Lab:Creatinine * Collection Date [...] She is under the care of an public policy associate. 5 . H ypercholesterolemia - E78.00 N [...] MD Date: Generated for Timothy kennedy/Ngoc/eTransmitting on: 08/08/2024 07:58 PM EST History and Physical Notes * [...]
--- OUTSIDE RECORDS SUMMARY | 2024-06-14 09:47 | XMS_ITS ---
Author Organization Meño Edwards III, MD Address [address] [place] [address] Care Team Providers Care Integrated Logistics Support Manager Name Role Phone Dr. Meño Edwards III Primary Care Provider [phone] REASON FOR VISIT Message Social History Sex Assigned At : Social History Observation Description Sex Assigned At Female Encounters Encounter Location Date Provider Diagnosis Meño Edwards III, MD [address] [place] [address] [place] [address] 06/14/2024 Meño Edwards Plan Of Treatment Next Appt Details Provider Name:Meño Edwards , 07/10/2025 09:30:00 AM, [address] [place] [address] [place], [address], Provider Name:Meño Edwards , 04/23/2026 09:30:00 AM, [address] [place] [address] [place], [address], Progress Notes * Jacy DOMINIQUE SDOB: [birth year] (69 yo F)Acc No.[id number]:06/14/2024 Patient: Aidee ADAMJung COTTRELLanne Alexandro :1955 A ge:69 Y S ex:Female Address:[place] [address] * true * Date: Generated for Printi ng/Faxing/eTransmitting on: 08/08/2024 07:57 PM EST
--- OUTSIDE RECORDS SUMMARY | 2024-08-23 04:30 | XMS_ITS ---
Author Organization Meño Edwards III, MD Address [address] [place] [address] Care Team Providers Care Heel Cutter Name Role Phone Dr. Meño Edwards III Primary Care Provider [phone] Allergies Allergen (clinical drug ingredient) Drug/Non Drug Allergy documented on EMR Reaction Allergy Type Onset Date Status Seasonale Unknown Drug Allergy Active REASON FOR VISIT underweight, pancytopenia, asthma, CKD, gout, macular degeneration, on kidney transplant list Medications Medication SIG (Take, Route, Frequency, Duration) Notes Start Date End Date Status Triamcinolone Acetonide 0.1 % External Active Sodium Polystyrene Sulfonate - as directed Orally 30 grams per week 03/08/2024 Active Allopurinol 100 MG TAKE 1 TABLET BY MOUTH DAILY Oral Active amLODIPine Besylate 5 MG 1 1/2 tablet Or ally Once a day 08/04/2023 Active Calcium + D Active Atorvastatin Calcium 10 MG TAKE 1 TABLET BY MOUTH EVERY DAY Active Pulmicort Flexhaler 180 MCG/ACT 2 puffs [...] Findings: Tobacco Non-User Aggressive non-smoker Vital Signs Temperature 98.0 degrees Fahrenheit 08/23/19 25 Blood pressure systolic 140 mm Hg 02/27/20 25 Blood pressure diastolic 56 mm Hg 025 Heart Rate 62 /min 08/23/2024 Height 65 in 08/23/2024 Weight 113 lbs 08/23/2024 BMI 18.8 kg/m2 08/23/2024 Encounters Encounter Location Date Provider Diagnosis Meño Edwards III, MD [address] [place] [address] [address], [place] [address] 08/23/2024 Meño Edwards Underweight R63.6 ; CKD (chronic kidney disease) stage 3, GFR 30-59 ml/min N18.3 ; Mild intermittent asthma without complication J45.20 ; Thrombocytopenia D69.6 ; Thyroiditis E06.9 and Osteoporosis M81.0 Assessments Encounter Date Diagnosis (ICD Code) Assessment Notes Treat ment Notes Treatment Clinical Notes 08/23/2024 Underweight (ICD-10 - R63.6) Her weight has been stable lately with a body mass index of 18. 08/23/2024 CKD (chronic kidney disease) stage 3, GFR 30-59 ml/min (ICD-10 - N18.3) Her renal function continues to decline. She is followed closely by nephrology. Her recent BUN is 107, Creatinine 3.94, GFR 11.. She has been placed on a list for a kidney transplant by her glass block bender. 08/23/2024 Mild intermittent asthma without complication (ICD-10 - J45.20) She has had no difficulty with asthma lately. She has an inhaler which she has not been using. 08/23/2024 Thrombocytopenia (ICD-10 - D69.6) She has had no bleeding and is avoiding aspirin. 08/23/2024 Thyroiditis (ICD-10 - E06.9) This is not an active problem. She remains under the care of her high voltage electrician. She is asymptomatic at this time. 08/23/2024 Osteoporosis (ICD-10 - M81.0) She has been compliant with his therapy. It was reviewed with her today. Plan Of Treatment Medication Medication Name Sig Start Date Stop Date Notes Triamcinolone Acetonide 0.1 % External Sodium Polystyrene Sulfonate - as directed Orally 30 grams per week 03/08/2024 Allopurinol 100 MG TAKE 1 TABLET BY AYESHA TH DAILY Oral amLODIPine Besylate 5 MG 1 1/2 tablet Or ally Once a day 08/04/2023 Calcium + D Atorvastatin Calcium 10 MG TAKE 1 TABLET BY MOUTH EVERY DAY Pulmicort Flexhaler 180 MCG/ACT 2 puffs Inhalation Twice a day October-March ProAir HFA 108 (90 Base) MCG/ACT 2 puffs as needed Inhalation every 4 hrs PRN Vitamin E Pending Test Test Name Order Date PROFILE, FASTING (COMPREHENSIVE METABOLI C) 08/23/2024 CBC WITH AUTO DIFF 08/23/2024 Lipid Panel 08/23/2024 Next Appt Details Follow Up: 3 Months, In thre e months, Reason: OV, Routine follow-up Provider Name:Meño Edwards , 07/10/2025 09:30:00 AM, [address] [place] [address] [address], [place], [address], Provider Name:Meño Edwards , 04/23/2026 09:30:00 AM, [address] [place] [address] [address], [place], [address], Progress Notes * Jacy DOMINIQUE SDOB: [birth year] (69 yo F)Acc No.[id number]:08/23/2024 Progress Notes Patient: Jacy GARCIA Provider: Wan Edwards MD :1955 A ge:69 Y S ex:Female Date:08/23/2024 Address:[address] [place] [address] [place], [id number] Subjective: * Chief Complaints: * U nderweightPancytopeniaAsthmaCKDGoutMacular degenerationOn kidney transplant list * HPI: C OVID-19 Screening: moving to [place] dont know when. Questions H ave you had any new onset fever, chills, cough, congestion, sore throat, shortness of breath, muscle aches? N o * : The patient, a 69-year-old female, presented with a history of pain in the middle of her chest that radiated to her back. She reported that the pain was not typical of heartburn and did not have a burning sensation. Instead, she experienced an unusual taste in her mouth. The pain lasted for a couple of days before subsiding. She has been taking omeprazole once a day for this condition. Recently, she has been experiencing small burps and occasional recurrence of the unusual taste in her mouth. She also reported experiencing shortness of breath during exercise and at other times, but this symptom seems to have subsided. The patient also reported issues with her eyesight and has been having trouble reading with her new glasses. She has seen an food management aide twice this year for this issue. The patient also has a history of kidney issues and has been referred for a transplant. She is currently on a waiting list for the transplant. She also reported occasional swelling in her legs. * ROS: G eneral/Constitutional: Admits p ain, o nly normal aches and pains. C hills?denies. F atigue a dmits. F ever d enies. E NT: Decreased hearing d enies. R espiratory: Cough d enies. C ardiovascular: Chest pain with exertion d enies. D yspnea on exertion?denies. A dmits S hortness of breath, d enies. G astrointestinal: Constipation d enies. D ecreased appetite d enies.?Diarrhea d enies. H eartburn 1 recent episode. N ausea d enies. R ectal bleeding [...] w isdom teeth extraction tonsillectomy septum repair [id number] right cataract surgery 2012colonoscopy, adenomatous polyp 2004colonoscopy, wnl 2009biopsy on left index finger 09/2018Basal Cell removed, Left arm 01/10/2023No history * Hospitalization/Major Diagno stic Procedure: N o history * Family History: F ather: 95 yrs, hyperlipidemia, hypertension, diagnosed with Hyperlipidemia, Cancer, HTN. M other: 75 yrs, liver cancer, adult onset diabetes mellitus, diagnosed with DM, Cancer. S pouse: alive. 1 brother(s) . . [...] every 4 hrs , Notes to Pharmacist: PRNVitamin E Calcium + D Allopurinol 100 MG Tablet TAKE 1 TABLET BY MOUTH DAILY Oral amLODIPine Besylate 5 MG Tablet 1 1/2 tablet Orally Once a day Triamcinolone Acetonide 0.1 % Cream External Sodium Polystyrene Sulfonate - Powder as directed Orally 30 grams per week Atorvastatin Calcium 10 MG Tablet TAKE 1 TABLET BY MOUTH EVERY DAY Medication List reviewed and reconciled with the patientTaking Pulmicort Flexhaler 180 MCG/ACT Aerosol Powder Breath Activated 2 puffs Inhalation Twice a day , Notes to Pharmacist: ProAir HFA 108 (90 Base) MCG/ACT Aerosol Solution 2 puffs as needed Inhalation every 4 hrs , Notes to Pharmacist: PRNTaking Vitamin E Taking Calcium + D Taking Allopurinol 100 MG Tablet TAKE 1 TABLET BY MOUTH DAILY Oral Taking amLODIPine Besylate 5 MG Tablet 1 1/2 tablet Orally Once a day Taking Triamcinolone Acetonide 0.1 % Cream External Taking Sodium Polystyrene Sulfonate - Powder as directed Orally 30 grams per week Taking Atorvastatin Calcium 10 MG Tablet TAKE 1 TABLET BY MOUTH EVERY DAY Medication List reviewed and reconciled with the patient * Allergies: S divya[Allergies Verified] Objective: * Vitals: H t: 65, Wt:113, BMI:18.8, BP:140/56, HR:62, Temp:98.0, Ht-cm: 165.1, Wt-k.26. * P ast Orders: Lab:Electrolytes * Collection Date 05/28/2024 03/02/2024 09/09/2023 Collection Time 08:53 AM 12:58 PM 12:19 PM Order Date 05/28/2024 03/02/2024 09/09/2023 Sodium 142 (Ref Range: 135-145 mmol/L) 140 (Ref Range: 135-145 mmol/L) 145 (Ref Range: 135-145 mmol/L) Potassium 5.1 (Ref Range: 3.3-5.1 mmol/L) 5.5 H (Ref Range: 3.3-5.1 mmol/L) 4.8 (Ref Range: 3.3-5.1 mmol/L) Chloride 107 (Ref Range: 96-108 mmol/L) 110 H (Ref Range: 96-108 mmol/L) 111 H (Ref Range: 96-108 mmol/L) Carbon Dioxide 29 (Ref Range: 22-29 mmol/L) 21 L (Ref Range: 22-29 mmol/L) 24 (Ref Range: 22-29 mmol/L) Anion Gap 11 L (Ref Range: 12-20) 15 (Ref Range: 12-20) 15 (Ref Range: 12-20) * Lab:Blood Urea Nitrogen * Collection Date 05/28/2024 03/02/2024 09/09/2023 Collection Time 08:53 AM 12:58 PM 12:19 PM Order Date 05/28/2024 03/02/2024 09/09/2023 Blood Urea Nitrogen 80 H (Ref Range: 9-16 mg/dL) 63 H (Ref Range: 9-16 mg/dL) 76 H (Ref Range: 9-16 mg/dL) * Lab:Creatinine * Collection Date 05/28/2024 03/02/2024 09/09/2023 Collection Time 08:53 AM 12:58 PM 12:19 PM Order Date 05/28/2024 03/02/2024 09/09/2023 Creatinine 3.57 H (Ref Range: 0.5-1.4 mg/dL) 3.04 H (Ref Range: 0.5-1.4 mg/dL) 3.26 H (Ref Range: 0.5-1.4 mg/dL) Estimated Glomerular Filt Rate 13 15 14 * Lab:R[facility] Tez l Fast * Collection Date 08/21/2024 04/13/2024 07/26/2023 Collection Time 09:02 AM 07:26 AM 09:30 AM Order Date 08/21/2024 04/13/2024 07/26/2023 Sodium 143 (Ref Range: 135-145 mmol/L) 143 (Ref Range: 135-145 mmol/L) 143 (Ref Range: 135-145 mmol/L) Bilirubin Total 0.2 (Ref Range: 0.0-1.0 mg/dL) 0.3 (Ref Range: 0.0-1.0 mg/dL) 0.3 (Ref Range: 0.0-1.0 mg/dL) Aspartate Amino Transferase 51 H (Ref Range: 5-31 U/L) 44 H (Ref Range: 5-31 U/L) 57 H (Ref Range: 5-31 U/L) Alanine Aminotransferase 49 H (Ref Range: 0-31 U/L) 37 H (Ref Range: 0-31 U/L) 55 H (Ref Range: 0-31 U/L) Total Protein 6.9 (Ref Range: 6.5-8.0 g/dL) 6.9 (Ref Range: 6.5-8.0 g/dL) 7.0 (Ref Range: 6.5-8.0 g/dL) Albumin Level 4.1 (Ref Range: 3.5-5.0 g/dL) 4.3 (Ref Range: 3.5-5.0 g/dL) 4.3 (Ref Range: 3.5-5.0 g/dL) Alkaline Phosphatase 127 H (Ref Range: 39-117 U/L) 111 (Ref Range: 39-117 U/L) 82 (Ref Range: 39-117 U/L) Potassium 5.4 H (Ref Range: 3.3-5.1 mmol/L) 4.8 (Ref Range: 3.3-5.1 mmol/L) 5.3 H (Ref Range: 3.3-5.1 mmol/L) Chloride 114 H (Ref Range: 96-108 mmol/L) 109 H (Ref Range: 96-108 mmol/L) 107 (Ref Range: 96-108 mmol/L) Carbon Dioxide 22 (Ref Range: 22-29 mmol/L) 26 (Ref Range: 22-29 mmol/L) 26 (Ref Range: 22-29 mmol/L) Anion Gap 12 (Ref Range: 12-20) 13 (Ref Range: 12-20) 15 (Ref Range: 12-20) Blood Urea Nitrogen 107 H (Ref Range: 9-16 mg/dL) 84 H (Ref Range: 9-16 mg/dL) 70 H (Ref Range: 9-16 mg/dL) Creatinine 3.94 H (Ref Range: 0.5-1.4 mg/dL) 3.13 H (Ref Range: 0.5-1.4 mg/dL) 2.96 H (Ref Range: 0.5-1.4 mg/dL) Estimated Glomerular Filt Rate 11 15 16 Glucose Fasting 93 (Ref Range: 60-99 mg/dL) 98 (Ref Range: 60-99 mg/dL) 91 (Ref Range: 60-99 mg/dL) Calcium 9.3 (Ref Range: 8.4-10.2 mg/dL) 9.8 (Ref Range: 8.4-10.2 mg/dL) 9.3 (Ref Range: 8.4-10.2 mg/dL) * Lab:Lipid Panel * Collection Date 08/21/2024 04/13/2024 07/26/2023 Collection Time 09:02 AM 07:26 AM 09:30 AM Order Date 08/21/2024 04/13/2024 07/26/2023 Triglycerides 125 (Ref Range: <150 mg/dL) 95 (Ref Range: <150 mg/dL) 84 (Ref Range: <150 mg/dL) Cholesterol 218 H (Ref Range: <200 mg/dL) 212 H (Ref Range: <200 mg/dL) 231 H (Ref Range: <200 mg/dL) LDL Cholesterol Calculated 117 H (Ref Range: <100 mg/dL) 98 (Ref Range: <100 mg/dL) 122 H (Ref Range: <100 mg/dL) HDL Cholesterol 76 (Ref Range: >40 mg/dL) 95 (Ref Range: >40 mg/dL) 93 (Ref Range: >40 mg/dL) * Lab:Free T4 (Free Thyroxine) * Collection Date 08/21/2024 07/08/2020 Collection Time 09:02 AM 11:40 AM Order Date 08/21/2024 07/08/2020 Free T4 (Free Thyroxine) 0.93 (Ref Range: 0.71-1.85 ng/dL) 0.91 (Ref Range: 0.71-1.85 ng/dL) * Lab:Complete Blood Count Aut o Diff * Collection Date 08/21/2024 04/13/2024 01/31/2024 Collection Time 09:02 AM 07:26 AM 10:50 AM Order Date 08/21/2024 04/13/2024 01/31/2024 White Blood Count 4.5 L (Ref Range: 4.8-10.8 X10*3/uL) 4.2 L (Ref Range: 4.8-10.8 X10*3/uL) 4.7 L (Ref Range: 4.8-10.8 X10*3/uL) Red Blood Count 2.79 L (Ref Range: 4.20-5.50 X10*6/uL) 2.99 L (Ref Range: 4.20-5.50 X10*6/uL) 3.02 L (Ref Range: 4.20-5.50 X10*6/uL) Hemoglobin 8.6 L (Ref Range: 12.0-16.0 g/dl) 9.6 L (Ref Range: 12.0-16.0 g/dl) 9.6 L (Ref Range: 12.0-16.0 g/dl) Hematocrit 28.0 L (Ref Range: 37.0-47.0 %) 30.0 L (Ref Range: 37.0-47.0 %) 30.6 L (Ref Range: 37.0-47.0 %) Mean Corpuscular Volume 100.4 H (Ref Range: 80.0-98.0 fL) 100.3 H (Ref Range: 80.0-98.0 fL) 101.3 H (Ref Range: 80.0-98.0 fL) Mean Corpuscular Hemoglobin 30.8 (Ref Range: 27.0-33.0 pg) 32.1 (Ref Range: 27.0-33.0 pg) 31.8 (Ref Range: 27.0-33.0 pg) Mean Corpuscular HGB Conc 30.7 L (Ref Range: 31.0-35.0 g/dl) 32.0 (Ref Range: 31.0-35.0 g/dl) 31.4 (Ref Range: 31.0-35.0 g/dl) Red Cell Distribution Width 13.9 (Ref Range: 11.0-16.0 %) 13.6 (Ref Range: 11.0-16.0 %) 13.2 (Ref Range: 11.0-16.0 %) Platelet Count 112 L (Ref Range: 160-400 X10*3/uL) 139 L (Ref Range: 160-400 X10*3/uL) 114 L (Ref Range: 160-400 X10*3/uL) Mean Platelet Volume 11.0 (Ref Range: 9.4-12.3 fL) 11.1 (Ref Range: 9.4-12.3 fL) 11.0 (Ref Range: 9.4-12.3 fL) Neutrophils Percent Auto 69.6 (Ref Range: 45-73 %) 62.3 (Ref Range: 45-73 %) 69.4 (Ref Range: 45-73 %) Imm Gran Pct Auto 0.4 (Ref Range: 0.0-0.4 %) 0.2 (Ref Range: 0.0-0.4 %) 0.4 (Ref Range: 0.0-0.4 %) Lymphocytes Percent Auto 17.7 L (Ref Range: 20-40 %) 24.5 (Ref Range: 20-40 %) 20.1 (Ref Range: 20-40 %) Monocytes Percent Auto 9.0 (Ref Range: 2-11 %) 9.0 (Ref Range: 2-11 %) 8.6 (Ref Range: 2-11 %) Eosinophils Percent Auto 2.9 (Ref Range: 0-4 %) 3.5 (Ref Range: 0-4 %) 1.1 (Ref Range: 0-4 %) Basophils Percent Auto 0.4 (Ref Range: 0-2 %) 0.5 (Ref Range: 0-2 %) 0.4 (Ref Range: 0-2 %) NRBC Pct Auto 0.0 (Ref Range: 0.0-0.2 /100WBC) 0.0 (Ref Range: 0.0-0.2 /100WBC) 0.0 (Ref Range: 0.0-0.2 /100WBC) Neutrophils Absolute Auto 3.1 (Ref Range: 2.0-8.3 x10*3/uL) 2.6 (Ref Range: 2.0-8.3 x10*3/uL) 3.2 (Ref Range: 2.0-8.3 x10*3/uL) Imm Gran Abs Auto 0.02 (Ref Range: 0.00-0.03 X10*3/uL) 0.01 (Ref Range: 0.00-0.03 X10*3/uL) 0.02 (Ref Range: 0.00-0.03 X10*3/uL) Lymphocytes Absolute Auto 0.8 L (Ref Range: 1.2-4.9 X10*3/uL) 1.0 L (Ref Range: 1.2-4.9 X10*3/uL) 0.9 L (Ref Range: 1.2-4.9 X10*3/uL) Monocytes Absolute Auto 0.4 (Ref Range: 0.1-1.2 X10*3/uL) 0.4 (Ref Range: 0.1-1.2 X10*3/uL) 0.4 (Ref Range: 0.1-1.2 X10*3/uL) Eosinophils Absolute Auto 0.1 (Ref Range: 0.0-0.4 X10*3/uL) 0.2 (Ref Range: 0.0-0.4 X10*3/uL) 0.1 (Ref Range: 0.0-0.4 X10*3/uL) Basophils Absolute Auto 0.0 (Ref Range: 0.0-0.2 X10*3/uL) 0.0 (Ref Range: 0.0-0.2 X10*3/uL) 0.0 (Ref Range: 0.0-0.2 X10*3/uL) NRBC Abs Auto 0.000 (Ref Range: 0.0-0.012 X10*3/uL) 0.000 (Ref Range: 0.0-0.012 X10*3/uL) 0.000 (Ref Range: 0.0-0.012 X10*3/uL) * Lab:Thyroid Stimulating Horm one * Collection Date 08/21/2024 07/08/2020 Collection Time 09:02 AM 11:40 AM Order Date 08/21/2024 07/08/2020 Thyroid Stimulating Hormone 4.83 H (Ref Range: 0.32-4.0 uIU/mL) 2.02 (Ref Range: 0.32-4.0 uIU/mL) * Examination: G eneral Examination: GENERAL APPEARANCE: [...] ml/min - N18.3 (Primary) N otes :Her renal function continues to decline. She is followed closely by nephrology. Her recent BUN is 107, Creatinine 3.94, GFR 11.. She has been placed on a list for a kidney transplant by her glass block bender. 2 . U nderweight - R63.6 N otes :Her weight has been stable lately with a body mass index of 18. 3 . M ild intermittent asthma without complication - J45.20 N otes :She has had no difficulty with asthma lately. She has an inhaler which she has not been using. 4 . T hrombocytopenia - D69.6 N otes :She has had no bleeding and is avoiding aspirin. 5 . T hyroiditis - E06.9 N otes :This is not an active problem. She remains under the care of her high voltage electrician. She is asymptomatic at this time. 6 . O steoporosis - M81.0 N otes :She has been compliant with his therapy. It was reviewed with her today. Plan: * Treatment: * Labs: * L ab: PROFILE, FASTING (COMPREHENSIVE METABOLIC) L ab: CBC WITH AUTO DIFF L ab: Lipid Panel * Procedure Codes: * Preventive Medicine: Counseling: C are goal follow-up plan: Counseling for abnormal BMI given Y es Below Normal BMI Follow-up D ietary education for weight gain, Dietary management education, guidance, and counseling * Follow Up: 3 Months, In three months (Reason: OV, Routine follow-up) * Images: * Sign off status: Completed true * Provider: Wan Edwards MD Date: 0 08/23/2024 Generated for Deepikai brent/Ngoc/eTransmitting on: 1 08/08/2024 07:58 PM EST History and Physical Notes * HPI (History of Present Illness) Category Sub-Category Detail Notes COVID-19 Screening Questions Have you had any new onset fever, chills, cough, congestion, sore throat, shortness of breath, muscle aches?: No Examination Category Sub-Category Detail Notes General Examination [...]
--- OUTSIDE RECORDS SUMMARY | 2024-08-31 07:11 | XMS_ITS ---
Author Organization Meño Edwards III, MD Address [address] [place] [address] Care Team Providers Care Polymerization Oven Operator Name Role Phone Dr. Meño Edwards III [...] Date Provider Diagnosis Meño Edwards III, MD [address] [place] [address] [place] [address] 08/31/2024 Meño Edwards Plan Of Treatment Medication Medication Name Sig Start Date Stop Date Notes amLODIPine Besylate 5 MG 1 tablet Orally Once a day for 30 days Next Appt Details Provider Name:Meño Edwards , 07/10/2025 09:30:00 AM, [address] [place] [address] [place], [address], Provider Name:Meño Edwards , 04/23/2026 09:30:00 AM, [address] [place] [address] [place], [address], Progress Notes * Jacy DOMINIQUE SDOB: [birth year] (69 yo F)Acc No.[id number]:08/31/2024 Patient: Jacy GARCIA :1955 A ge:69 Y S ex:Female [facility] [place] [address] * Refills Refill amLODIPine Besylate Tablet, 5 MG, Orally, 30 Tablet, 1 tablet, Once a day, 30 days, Refills=11 * true * Date: Generated for Timothy kennedy/Ngoc/Yogesh on: 1 08/08/2024 07:57 PM EST
--- OUTSIDE RECORDS SUMMARY | 2024-11-21 04:30 | XMS_ITS ---
Author Organization Meño Edwards III, MD Address [address] [place] [address] Care Team Providers Care Aerosol Line Operator Name Role Phone Dr. Meño Edwards [...] Date Provider Diagnosis Meño Edwards III, MD [address] [place] [address] [address], [place] [address] 11/21/2024 Meño Edwards Underweight R63.6 ; Pancytopenia [...] She remains under the care of her senior finance manager. She is asymptomatic at this time. 11/21/2024 [...] under the care of Dr. Ashford, her professor of criminal justice. She is now on a kidney transplant [...] Provider Name:Meño Edwards , 07/10/2025 09:30:00 AM, [address] [place] [address] [address] [place], [address], Provider Name:Meño Edwards , 04/23/2026 09:30:00 AM, [address] [place] [address] [place], [address], Progress Notes * Jacy DOMINIQUE SDOB: [birth year] (69 yo F)Acc No.[id number]:11/21/2024 Progress Notes Patient: Jacy GARCIA Provider: Wan Edwards MD :1955 A ge:69 Y S ex:Female Date:11/21/2024 Address: [address] [id number] Subjective: * Chief Complaints: * C hronic [...] today. She is going to see her professor of criminal justice next week and will have blood work [...] w isdom teeth extraction tonsillectomy septum repair [id number] right cataract surgery 2012colonoscopy, adenomatous polyp 2004colonoscopy, [...] he is single and comes fom [facility]. She has no children. * [...] She remains under the care of her senior finance manager. She is asymptomatic at this time. 7 [...] under the care of Dr. Ashford, her professor of criminal justice. She is now on a kidney transplant [...] 0 11/21/2024 Generated for Deepikai brent/Ngoc/Angelaitting on: 08/08/2024 07:57 PM EST History and [...]
--- OUTSIDE RECORDS SUMMARY | 2025-01-11 04:59 | XMS_ITS ---
Author Organization Meño Edwards III, MD Address [address] [facility] [address] [place] [address] Care Team Providers Care Top Closer Name Role Phone Dr. Meño Edwards III Primary Care Provider REASON FOR VISIT Rx Request Social History Sex Assigned At : Social History Observation Description Sex Assigned At Female Encounters Encounter Location Date Provider Diagnosis Meño Edwards III, MD [address] [place] [address] [place] [address] 01/11/2025 Meño Edwards Plan Of Treatment Next Appt Details Provider Name:Meño Edwards , 07/10/2025 09:30:00 AM, [address] [place] [address] [place], [address], Provider Name:Meño Edwards , 04/23/2026 09:30:00 AM, [address] [place] [address] [place], [address], Progress Notes * Jacy DOMINIQUE SDOB: [birth year] (69 yo F)Acc No.[id number]:01/11/2025 Patient: Aidee ADAMJung COTTRELLanne Alexandro :1955 A ge:69 Y S ex:Female Address:[place] [address] * true * Date: Generated for Printi ng/Faxing/eTransmitting on: 08/08/2024 07:58 PM EST
--- OUTSIDE RECORDS SUMMARY | 2025-01-11 06:51 | XMS_ITS ---
Author Organization Meño Edwards III, MD Address [address] [facility] [address] Care Team Providers Care Retirement Village Manager Name Role Phone Dr. Meño Edwards III Primary Care Provider [phone] Medications Medication SIG (Take, Route, Frequency, Duration) Notes Start Date End Date Status Amoxicillin-Pot Clavulanate 875-125 MG 1 tablet Orally every 12 hrs for 7 days 01/11/2025 01/18/2025 Active Social History Sex Assigned At : Social History Observation Description Sex Assigned At Female Encounters Encounter Location Date Provider Diagnosis Meño Edwards III, MD [address] [place] [address] [place] [address] 01/11/2025 Meño Edwards Plan Of Treatment Medication Medication Name Sig Start Date Stop Date Notes Amoxicillin-Pot Clavulanate 875-125 MG 1 tablet Orally every 12 hrs for 7 days 01/11/2025 01/18/2025 Next Appt Details Provider Name:Meño Edwards , 07/10/2025 09:30:00 AM, [address] [place] [address] [place], [address], Provider Name:Meño Edwards , 04/23/2026 09:30:00 AM, [address] [place] [address] [place], [address], Progress Notes * Jacy DOMINIQUE SDOB: [birth year] (69 yo F)Acc No.[id number]:01/11/2025 Patient: Jacy GARCIA :1955 A ge:69 Y S ex:Female [facility] [place] [address] * Refills Start Amoxicillin-Pot Clavulanate Tablet, 875-125 MG, Orally, 14 Tablet, 1 tablet, every 12 hrs, 7 days, Refills=0 * true * Date: Generated for Timothy kennedy/Ngoc/Angelaitting on: 08/08/2024 07:57 PM EST
--- OUTSIDE RECORDS SUMMARY | 2025-04-22 04:30 | XMS_ITS ---
Author Organization Meño Edwards III, MD Address [address] [place] [address] Care Team Providers Care Golf Course Superintendent Name Role Phone Dr. Meño Edwards III Primary Care Provider [phone] Allergies Allergen (clinical drug ingredient) Drug/Non Drug [...] Date Provider Diagnosis Meño Edwards III, MD [address] [place] [address] [address], [place] [id number] 04/22/2025 Meño Edwards Underweight R63.6 ; Pancytopenia [...] Provider Name:Meño Edwards , 07/10/2025 09:30:00 AM, [address] [place] [address] [address], [place], [address], Provider Name:Meño Edwards , 04/23/2026 09:30:00 AM, [address] [place] [address] [address], [place], [address], Progress Notes * Jacy DOMINIQUE SDOB: [birth year] (70 yo F)Acc No.[id number]:04/22/2025 Progress Notes Patient: Jacy GARCIA Provider: Wan Edwards MD :1955 A ge:70 Y S ex:Female Date:04/22/2025 Address:[address] [place], [place] [id number] Subjective: * Chief Complaints: * A nnual [...] w isdom teeth extraction tonsillectomy septum repair [id number] right cataract surgery 2012colonoscopy, adenomatous polyp 2004colonoscopy, [...] S he is single and comes fom [facility]. She has no children. * Medications: [...] 95 (Ref Range: >40 mg/dL) * Lab:Comprehensive [place]. Pane l Fast * Collection Date 04/17/2025 [...] auscultation . BREASTS: N ot examined, Prefers RN CARDIOLOGY. ABDOMEN: b owel sounds normal, no ascites, no organomegaly, no mass, underweight. RECTAL EXAM: n ot examined, Prefers RN CARDIOLOGY. MUSCULOSKELETAL: e xtremities unremarkable, no clubbing, cyanosis [...] Date: 1 Generated for Timothy kennedy/Ngoc/eTransmitting on: 08/08/2024 07:58 [...] PULSES: normal BREASTS: Not examined, Prefer s RN CARDIOLOGY MUSCULOSKELETAL: extremities unremark able, no clubbing, cyanosis or edema LYMPH NODES: no enlarged lymph no ivett,spleen normal RECTAL EXAM: not examined, Prefer s RN CARDIOLOGY PSYCH: alert, oriented: goo d eye contact: cooperative with exam: cognitive function intact: thought process logical, goal directed: speech clear ORAL CAVITY: normal, unremarkable
--- NOTE | 2025-06-07 14:58 | HO.NEPHOV ---
Vital Signs 06/07/25 14:59 Height 5 ft 4 in Weight 111 lb 2 oz BMI 19.1 BP 184/50 H Blood Pressure Location Rt brachial Position Sitting Pulse 62 Pulse Source Pulse Oximeter Pulse Oximetry (%) 99 Oxygen Delivery Method Room Air Intake Visit Reasons: 4 wks f/u w/ labs-LVM Servicer Travel Trailers Required: No Accompanied by: Self / Same As Patient Allergies No Known Allergies Allergy (Verified 06/07/25 14:59) HPI Comments Details: Jacy was seen in follow-up of her hypertension and advanced chronic kidney disease. She has not had any flare up of gout on her left foot. She is tolerating Allopurinol . She denies any uremic symptoms. She has not taken any nonsteroidal anti-inflammatories. Her blood pressure control is optimal. Her Amlodipine has been cut back due to edema. She maintains good hydration. She denies chest pain, shortness of breath, paroxysmal nocturnal dyspnea, orthopnea or urinary symptoms. Her last 24 hour urine collection showed a GFR close to 18 mls/minute but clearly it has gone down now. Her serum creatinine marginally worse. She is listed for renal transplant in [facility] Medical History Degenerative arthritis of cervical spine Osteoarthritis Hypothyroidism Anemia Thrombocytopenia Chronic kidney disease DDD (degenerative disc disease) Rotator cuff arthropathy of right shoulder Neck pain Low back pain Single kidney Environmental allergies Asthma Surgical History Hx of nasal septoplasty History of tonsillectomy and adenoidectomy Hx of colonoscopy Hx of bilateral cataract extraction Social History Alcohol intake: current Alcohol intake frequency: holidays/special occasions only Review of Systems Const All systems reviewed & are unremarkable except as noted in HPI and below Physical Exam Vital Signs: Last Vital Signs Pulse 62 06/07/25 14:59 BP 184/50 H 06/07/25 14:59 Pulse Ox 99 06/07/25 14:59 Oxygen Delivery Method Room Air 06/07/25 14:59 BMI result Body Mass Index 19.1 Const General: comfortable and no acute distress Orientation/consciousness: patient oriented x3 HEENT Head: Yes normocephalic Mouth: Normal oral and palatal mucosa present Eyes EOM: EOMs intact bilaterally Neck Neck: Yes supple Resp Auscultation: clear to auscultation bilaterally Cardio Jugular venous distension: no JVD Rate: regular rate GI Palpation (GI): Soft to palpation Auscultation: normal bowel sounds General: Yes no CVA tenderness Back/Spine/Pelvis Back: no CVA tenderness Skin General skin exam: no rashes or lesions noted Neuro General: patient oriented x3 and moves all extremities Extrem General: Yes no pedal edema Office Meds epoetin darryl-epbx 10,000 unit/mL injection solution Performing Provider: Marquise Ashford MD Performing Location[facility] Administered by: Marquise Ashford MD on 06/07/25 15:20 Dose Route Admin Location Dispensed Lot Number Expiration Date [facility] [employer] 40,000 unit subcut RUE 4 mL [id number] 07/28/26 9518-5059-14 [employer] Total Dispensed Waste 4 mL 0 % Results Reviewed Nephrology Results: Hgb, (12.0-16.0) 8.0 g/dl L 06/04/25 WBC, (4.8-10.8) 4.0 X10*3/uL L 06/04/25 Plt Count, (160-400) 115 X10*3/uL L 06/04/25 Sodium, (135-145) 143 mmol/L 06/04/25 Potassium, (3.3-5.1) 4.5 mmol/L 06/04/25 Chloride, (96-108) 107 mmol/L 06/04/25 Carbon Dioxide, (22-29) 27 mmol/L 06/04/25 BUN, (9-16) 98 mg/dL H 06/04/25 Creatinine, (0.5-1.4) 3.91 mg/dL H 06/04/25 Calcium, (8.4-10.2) 9.1 mg/dL 06/04/25 Phosphorus, (2.7-4.5) 4.7 mg/dL H 01/21/25 PTH Intact, (8.7-77.1) 188.2 pg/mL H 01/21/25 Assessment & Plan Assessment & Plan (1) Hypertension: Code(s): I10 - Essential (primary) hypertension Category: Medical Qualifiers: Hypertension type: secondary to other renal disorders Qualified Code(s): I15.1 - Hypertension secondary to other renal disorders (2) Secondary hyperparathyroidism (of renal origin): Code(s): N25.81 - Secondary hyperparathyroidism of renal origin Category: Medical (3) CKD (chronic kidney disease) stage 4, GFR 15-29 ml/min: Code(s): N18.4 - Chronic kidney disease, stage 4 (severe) Category: Medical (4) Anemia in chronic kidney disease: Code(s): N18.9 - Chronic kidney disease, unspecified; D63.1 - Anemia in chronic kidney disease Category: Medical Qualifiers: Chronic kidney disease stage: stage 4 (GFR 15-29) Qualified Code(s): N18.4 - Chronic kidney disease, stage 4 (severe); D63.1 - Anemia in chronic kidney disease Tiffany Louie has left atrophic kidney. She has progressive renal dysfunction or many years. Her serum creatinine is marginally worse. Her last cr cl was close to 18 mls/mt but worse now. She does not have any uremic symptoms. She can continue current dose of amlodipine & allopurinol daily. She maintains good hydration. She avoids nonsteroidal anti-inflammatories. I discussed with her regarding options of renal replacement therapy. She is listed for transplantation in [facility] . I have given her [address] U of Procrit in the office today. All her questions during this visit were answered. Follow-up appointment given Orders: Orders Complete Blood Count Auto Diff 3 Weeks D63.1 - Anemia in chronic kidney disease, I15.1 - Hypertension secondary to other renal disorders, N18.4 - Chronic kidney disease, stage 4 (severe), N25.81 - Secondary hyperparathyroidism of renal origin Blood Urea Nitrogen 3 Weeks D63.1 - Anemia in chronic kidney disease, I15.1 - Hypertension secondary to other renal disorders, N18.4 - Chronic kidney disease, stage 4 (severe), N25.81 - Secondary hyperparathyroidism of renal origin Creatinine 3 Weeks D63.1 - Anemia in chronic kidney disease, I15.1 - Hypertension secondary to other renal disorders, N18.4 - Chronic kidney disease, stage 4 (severe), N25.81 - Secondary hyperparathyroidism of renal origin AMB Epoetin Injection Practice Supplied Today D63.1 - Anemia in chronic kidney disease, I15.1 - Hypertension secondary to other renal disorders, N18.4 - Chronic kidney disease, stage 4 (severe), N25.81 - Secondary hyperparathyroidism of renal origin Electrolytes 3 Weeks D63.1 - Anemia in chronic kidney disease, I15.1 - Hypertension secondary to other renal disorders, N18.4 - Chronic kidney disease, stage 4 (severe), N25.81 - Secondary hyperparathyroidism of renal origin Calcium 3 Weeks D63.1 - Anemia in chronic kidney disease, I15.1 - Hypertension secondary to other renal disorders, N18.4 - Chronic kidney disease, stage 4 (severe), N25.81 - Secondary hyperparathyroidism of renal origin Coding Level of Care Code Est Pt Level 4 (57356) Diagnoses Hypertension secondary to other renal disorders I15.1 Hypertension type: secondary to other renal disorders Secondary hyperparathyroidism (of renal origin) N25.81 CKD (chronic kidney disease) stage 4, GFR 15-29 ml/min N18.4 Anemia in stage 4 chronic kidney disease N18.4; D63.1 Chronic kidney disease stage: stage 4 (GFR 15-29)
[2025-06-07 14:59] VITALS: BP 184/50; PULSE 62; O2SAT 99; BMI 19.1
--- OUTSIDE RECORDS SUMMARY | 2025-06-07 19:57 | XMS_ITS | Continuity of Care Document ---
Author Organization [facility] Address [address] [place] [address] Phone [phone] Social History Type Date Description Comments Sex Female Sex Unknown Medical Devices Description No Information Available Encounters Description No Information Available Assessments Description No Information Available Plan of Treatment No Information Available Functional Status Description No Information Available Mental Status Description No Information Available Referrals Description No Information Available
--- OUTSIDE RECORDS SUMMARY | 2025-06-07 19:57 | XMS_ITS | Data Portability ---
Author Organization [facility] Esthela ROYAL_Sarah_ Address [address] [address] Care Team Providers Care Nanoscience Technician Name Role Phone KAR COVARRUBIAS Primary Care Provider Assessment No assessment recorded. Plan of Treatment Reminders Order Date Submit Date Provider Last Modified By Organization Details Last Modified Time Details Appointments None recorded. Lab rapid SARS CoV 2 Ag, QL IA, respiratory specimen 2023 024 In-Office Order, Internal Use Only DO Not Attach Compendium DO Not Attach Compendium, Do Not Delete/merge, [id number] 08:11:31 rapid flu (A+B) 2023 024 In-Office Order, Internal Use Only DO Not Attach Compendium DO Not Attach Compendium, Do Not Delete/merge, [id number] 08:11:32 SARS coronavirus RNA, qual, PCR, unspecified specimen 2020 021 [email or web address] In-Office Order, Internal Use Only DO Not Attach Compendium DO Not Attach Compendium, Do Not Delete/merge, [id number] 08:40:48 rapid SARS CoV 2 Ag, QL IA, respiratory specimen 2019 020 [email or web address] 5 In-Office Order, Internal Use Only DO Not Attach Compendium DO Not Attach Compendium, Do Not Delete/merge, [id number] 0 11:45:25 rapid SARS CoV 2 Ag, QL IA, respiratory specimen 2019 020 In-Office Order, Internal Use Only DO Not Attach Compendium DO Not Attach Compendium, Do Not Delete/merge, [id number] 0 15:44:46 Referral None recorded. Procedures cerumen removal (PROC) 2023 024 BISMARK In-Office Order, Internal Use Only DO Not Attach Compendium DO Not Attach Compendium, Do Not Delete/merge, [id number] 07:23:24 pulse oximetry (PROC) 2020 021 [email or web address] 5 In-Office Order, Internal Use Only DO Not Attach Compendium DO Not Attach Compendium, Do Not Delete/merge, [id number] 1 08:40:48 pulse oximetry (PROC) 2019 020 [email or web address] 5 In-Office Order, Internal Use Only DO Not Attach Compendium DO Not Attach Compendium, Do Not Delete/merge, [id number] 0 11:45:25 pulse oximetry (PROC) 2019 020 In-Office Order, Internal Use Only DO Not Attach Compendium DO Not Attach Compendium, Do Not Delete/merge, [id number] 0 16:31:34 Surgeries None recorded. Imaging None [...] By Organization Details Last Modified Time 09/22/2020 [id number] learning about healthy weight [email or web address] Not available 09/22/2020 08:40:48 body mass index: care instructions [email or web address] Not available 09/22/2020 08:40:48 eating healthy foods: care instructions Not available 09/22/2020 08:40:48 9 things to do i f you've been exposed to covid-19 [email or web address] Not available 09/22/2020 08:40:48 12/23/2023 [id number] Acute Sinusitis: Care Instructions Not available 12/23/2023 [...] ABSCESS), MENINGITIS, INTRACRANIAL HEMORRHAGE, AIRWAY COMPROMISE, MASTO I DITIS, or ISCHEMIC STROKE thus I consider the discharge disposition reasonable. The patient and I have discussed the diagnosis and risks, and we agree with discharging home with close follow-up with the understanding that symptoms and presentations can change. We also discussed returning to the Office immediately or going directly to the ED if new or acutely w orsening symptoms occur. We have discussed [...] DO Not Attach Compendium, Do Not Delete/merge, [id number] 09/22/2020 08:20:07 05/27/20 20 05/27/2020 pulse oxime try (PROC ) pulse oximetry 99% room air Not Available In-Office Order Internal Use Only DO Not Attach Compendium DO Not Attach Compendium, Do Not Delete/merge, [id number] 05/27/2020 15:12:33 05/27/20 20 05/27/2020 rapid SARS CoV 2 Ag, QL IA, respi rator y speci men RAPID Nasal Covid negati ve Not Available In-Office Order Internal Use Only DO Not Attach Compendium DO Not Attach Compendium, Do Not Delete/merge, [id number] 05/27/2020 15:12:31 06/13/20 20 06/13/2020 rapid SARS CoV 2 Ag, QL IA, respi rator y speci men RAPID Nasal Covid negati ve Not Available In-Office Order Internal Use Only DO Not Attach Compendium DO Not Attach Compendium, Do Not Delete/merge, [id number] 06/13/2020 10:52:21 06/13/20 20 06/13/2020 pulse oxime try (PROC ) pulse oximetry 98% room air Not Available In-Office Order Internal Use Only DO Not Attach Compendium DO Not Attach Compendium, Do Not Delete/merge, [id number] 06/13/2020 10:52:23 09/23/19 21 09/22/2020 SARS coron aviru s RNA, qual, PCR, unspe cifie d speci men RAPID Bowles PCR COVID/Nasal negati ve Not Available In-Office Order Internal Use Only DO Not Attach Compendium DO Not Attach Compendium, Do Not Delete/merge, [id number] 09/22/2020 08:20:30 12/23/19 24 12/23/2023 rapid flu (A+B) Flu A negati ve Not Available In-Office Order Internal Use Only DO Not Attach Compendium DO Not Attach Compendium, Do Not Delete/merge, [id number] 12/23/2023 07:26:42 12/23/19 24 12/23/2023 rapid flu (A+B) Flu B negati ve Not Available In-Office Order Internal Use Only DO Not Attach Compendium DO Not Attach Compendium, Do Not Delete/merge, [id number] 12/23/2023 07:26:42 12/23/19 24 12/23/2023 rapid SARS CoV 2 Ag, QL IA, respi rator y speci men RAPID Nasal Covid negati ve Not Available In-Office Order Internal Use Only DO Not Attach Compendium DO Not Attach Compendium, Do Not Delete/merge, [id number] 12/23/2023 07:26:23 Result Notes None recorded. Problems No Known Problems Procedures Surgical History Date Name Laterality Status Provider Name and Address Organization Details Recorded Time 02/28/20 19 [facility] [place] [facility] 12/23/2023 07:23:34 03/09/20 18 Date of Last [facility] [place] [facility] 12/23/2023 07:23:34 Cataract [facility] [place] [facility] 12/23/2023 07:23:[address] [facility] [place] [facility] 12/23/2023 07:23:46 LEEP completed Gregorio Wood[facility] [place] - [facility] 12/23/2023 07:23:46 [facility] [place] [facility] 12/23/2023 07:23:[address] [facility] [facility] [place] [facility] 12/23/2023 07:23:46 Adenoid Surgery completed [facility] 12/23/2023 07:23:46 [...] (BMI) Body weight Heart rate Oxygen saturation Body temperature Provider Name and Address Organization Details Last Updated DateTime 1 162.56 cm 17.2 kg/m2 40883.2 4 g 71 /min 99 % 97.9 [degF] Nani LopezYunior [facility] 1 08:18:56 Date Recorded Body height Body mass index (BMI) Body weight Heart rate Body temperature Oxygen saturation Systolic And Diastolic Provider Name and Address Organization Details Last Updated DateTime 4 162.56 cm 17.7 kg/m2 25032.7 3 g 85 /min 97.5 [degF] 99 % 117/76 mm[Hg] Gregorio Stuart [place] - [facility] 4 07:23:08 Date Recorded Body height Body mass index (BMI) Body weight Heart rate Body temperature Oxygen saturation Systolic And Diastolic Provider Name and Address Organization Details Last Updated DateTime 0 162.56 cm 15.8 kg/m2 46881.5 g 62 /min 97.2 [degF] 99 % 152/49 mm[Hg] Lorrie Lara [place] [facility] 0 16:30:34 Date Recorded Body height Body mass index (BMI) Body weight Heart rate Body temperature Oxygen saturation Provider Name and Address Organization Details Last Updated DateTime 0 162.56 cm 16 kg/m2 03219.0 9 g 64 /min 97.9 [degF] 98 % Nani baum [place] - [facility] 0 10:51:05 Social History Question Answer Notes LastModified by Organizat ion Details LastModified Time Tobacco Smoking Status Never Smoker Gregorio Stuart [place], [place] - [facility] 12/23/2023 07:23:42 Do You Have [...] available 05/27/2020 If Patient Spent Time In [facility] - Does The Patient Live In [facility]? No Information not available 05/27/2020 In The 14 Days Before Symptom Onset, Have You Had Close Contact With A Person Who Is Under Investigation For COVID-19 While That Person Was Ill? No Information not available 05/27/2020 In The 14 Days Before Symptom Onset, Did The Patient Spend Time In [facility]? No Information not available 05/27/2020 Have [...] influenza, unspecified formulation 03/26/2020 completed KEN Garcia 12/23/2023 07:23:50 Past Encounters Encounter ID Performer Location Encounter Start Date Encounter Closed Date Diagnosis/Indication Diagnosis SNOMED-CT Code Diagnosis ICD10 Code Diagnosis IMO Codes Diagnosis Note [id number] Omaira Valenzuela PA-C [facility] [address] 05/27/2020 13:31:56 06/06/2020 14:49:42 Exposure to SARS-CoV-2 714635843 Z20.828 NEG RAPID [id number] Omaira Valenzuela PA-C [address] [address] 06/13/2020 10:15:38 06/13/2020 18:06:15 Suspected COVID-19 071630434 Z03.818 neg rapid covid [id number] Omaira Valenzuela PA-C [facility] [address] 09/22/2020 08:09:28 09/22/2020 10:47:30 Exposure to SARS-CoV-2 682269435 Z20.828 You were swabbed for Covid-19 today [...] the facility can prepare for your arrival [id number] Apryl Rea PA-C [facility] [place] [address] [place] [address] 12/23/2023 06:58:27 12/23/2023 13:22:50 Acute bacterial sinusitis 11311109 J01.90 - Rapid flu and COVIDWill initiate empiric antibiotic therapy as detailed below as this has been ongoing over a week now. Supportive and symptomati c management discussed. Impacted c erumen of bilateral ears 2315861619 838796 H61.23 She did undergo successful bilateral lavage, TMs were cleared of infection status post lavage Health Concerns Section Related Observation LastModified by Organization Detai ls LastModified Time None Recorded Concern Status LastModified by Organization Details LastModified Time None Recorded Advance Directives Directive N: Payers Insurance Date Sequence Insurance Name Policy Number Policy Almanza Covered Member ID Almanza Member ID Guarantor Name 05/08/2025 1 [place] Jacy Goldberg [id number] Jacy Goldberg 05/27/2020 1 *SELF PAY* Jung Goldberg 12/27/2023 2 [facility] [id number] Jacy Goldberg [id number] Jacy Goldberg Notes Date Note Type Note Provider Name and Address Organization Details Recorded Time 05/27/2020 text/html Needs covid test to move father into group home Omaira Valenzuela PA-C [address] [place], [address], [facility] 05/28/2020 08:19:04 06/13/2020 text/html COVID19 SymptomsReported by PatientUpper Respiratory SymptomsFor covid-19 signs and symptoms, patient reportscough resolved,fever resolved,shortness of breath resolved,chills resolved,repeated shaking with chills resolved,muscle pain resolved,headache resolved,sore throat resolved,loss of taste or smell resolved,vomiting or diarrhea resolved,fatigue resolved, andanorexia resolved. For associated symptoms, patient reportsno sputum production,no wheezing,no runny nose,no vomiting,no diarrhea,no body aches,no nausea,no change in mental status,no hypotension, andno tachycardia. Patient presents today for COVID testing. Patient is asymptomatic. Omaira Valenzuela PA-C [address] [place], [address], [facility] 06/13/2020 11:45:32 09/22/2020 text/html COVID19 SymptomsReported by Patient Patient presents today for COVID testing. Patient is asymptomatic. Omaira Valenzuela PA-C [address] [facility] [place], [place], [address], [facility] 09/22/2020 08:40:54 12/23/2023 text/html 68yo female presents with headache, sinus pressure/congestion, dizziness, and fatigue x1 week. Apryl Rea PA-C [address] [place], [address], [facility] 12/23/2023 08:21:05 OBGyn Episode No OBEpisode recorded.
--- OUTSIDE RECORDS SUMMARY | 2025-06-07 19:57 | XMS_ITS | Patient Health Record ---
Author Organization [facility] Address [address] [place] [address] Care Team Providers Care Cotton Stripper Name Role Phone Meño Edwards MD Primary Care Provider London Méndez Unavailable [phone] Allergies Allergen (clinical drug ingredient) Drug/Non Drug [...] Date Coverage End Date Medicare National Govt [employer] [address] [place] [address] [id number] Jacy Goldberg Self - patient is the insured [employer] [address] [place] [address] [id number] Jacy Goldberg Self - patient is the insured Medical (General) History Medical History History ICD Code asthma Back pain CAD (Cholesterol) Cataracts Measles Mumps Kidney disease chronic sinusitis Warts Surgical History Surgery Date(Month/Year) tonsillectomy and adenoidectomy wisdom teeth extraction 1971 cataract surgery 10/28/2015 deviated septum repair 1976
--- OUTSIDE RECORDS SUMMARY | 2025-06-07 19:58 | XMS_ITS | Clinical Summary ---
Author Organization [facility] [place] Address [address] [place] [address] Care Team Providers Care Special Services Supervisor Name Role Phone Unavailable Primary Care [...]
--- OUTSIDE RECORDS SUMMARY | 2025-06-07 19:58 | XMS_ITS | Patient Health Record ---
Author Organization [facility] Address [address] [place] [address] Care Team Providers Care Blood Bank Credit Clerk Name Role Phone Meño Edwards MD Primary [...] nts Influenza Unknown 02/13/2020 Administered Social History Social History Drugs/Alcohol: Social Info Question Answer Notes Alcohol Screen Did you have a drink containing alcohol in the past year? Yes How often did you have a drink containing alcohol in the past year? Monthly or less (1 point) How often did you have 6 or more drinks on one occasion in the past year? 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 Problems Problem Type SNOMED Code ICD Code Onset Dates Problem Status W/U Status Risk Notes Problem Colon cancer screening (468608992) Colon cancer screening (V76.51) Active confirmed Problem Colon cancer screening (459537777) Colon cancer screening (Z12.11) Active confirmed Problem History of polyp of colon (situation) (893408881) Personal history of colonic polyps (Z86.010) Active confirmed Problem Long-term current use of drug therapy (714128912) Long-term current use of high risk medication other than anticoagulant (Z79.899) Active confirmed Plan Of Treatment Future Test Test Name Order Date COLONOSCOPY 04/01/2014 COLONOSCOPY 07/28/2020 Insurance Providers Payer Name Payer Address Payer Phone Subscriber Number Group Number Insured Name Patient Relationship to Insured Coverage Start Date Coverage End Date MEDICARE OF [place] [address] [place] [address] [phone] [id number] MENA DOMINIQUE Self - patient is the insured [employer] CLAIMS [address] [place] [address] [id number] MENA DOMINIQUE Self - patient is the [...]
--- OUTSIDE RECORDS SUMMARY | 2025-06-07 19:59 | XMS_ITS | Patient Health Record ---
Author Organization Meño Edwards III, MD Address [address] [place] [address] Care Team Providers Care Crater And Packer Name Role Phone Dr. Meño Edwards III Primary Care Provider Allergies Allergen (clinical drug ingredient) Drug/Non Drug Allergy documented on EMR Reaction Allergy Type Onset Date Status No Known Drug Allergy Unknown Drug Allergy Active No Known Food Allergy Unknown Drug Allergy Active Seasonale Unknown Drug Allergy Active Results Component Value Reference Range Notes Complete Blood Count Auto Di ff Reviewed date:08/25/2024 06:24:46 PM Interpretation: Performing Lab:[facility] [place], [address] [place] [phone] Notes/Report: White Blood Count 4.5 4.8-10.8 X10*3/uL [...] NRBC Abs Auto 0.000 0.0-0.012 X10*3/uL Comprehensive Sula. Panel Fa st Reviewed date:08/25/2024 06:24:46 PM Interpretation: Performing Lab:[facility] [place], [address] [place] [phone] Notes/Report: Sodium 143 135-145 mmol/L Potassium 5.4 [...] Panel Reviewed date:08/25/2024 06:24:46 PM Interpretation: Performing Lab:[facility] [place], [address] [place] [phone] Notes/Report: Triglycerides 125 <150 mg/dL Desirable Triglyceride: [...] Thyroxine) Reviewed date:08/25/2024 06:24:46 PM Interpretation: Performing Lab:[address] [phone] Notes/Report: Free T4 (Free Thyroxine) 0.93 0.71-1.85 ng/dL Thyroid Stimulating Hormone Reviewed date:08/25/2024 06:24:47 PM Interpretation: Performing Lab:[facility] [place], [address] [place] [id number] Notes/Report: Thyroid Stimulating Hormone 4.83 0.32-4.0 uIU/mL Note: A sustained TSH level above 2.5 uIU/mL may warrant further investigation. TSH 3rd Generation ([facility]) Complete Blood Count Auto Di ff Reviewed date:09/09/2024 10:16:33 AM Interpretation: Performing Lab:[facility] [place], [address] [place] [phone] Notes/Report: White Blood Count 4.3 4.8-10.8 X10*3/uL [...] Electrolytes Reviewed date:09/09/2024 10:16:33 AM Interpretation: Performing Lab:[address] [address] Notes/Report: Sodium 141 135-145 mmol/L Potassium 5.4 3.3-5.1 mmol/L Chloride 112 96-108 mmol/L Carbon Dioxide 20 22-29 mmol/L Anion Gap 14 12-20 Blood Urea Nitrogen Reviewed date:09/09/2024 10:16:33 AM Interpretation: Performing Lab:[facility] [place], [address] [place] [phone] Notes/Report: Blood Urea Nitrogen 99 9-16 mg/dL Creatinine Reviewed date:09/09/2024 10:16:33 AM Interpretation: Performing Lab:[facility] [place], [address] [place] [phone] Notes/Report: Creatinine 3.45 0.5-1.4 mg/dL Estimated Glomerular Filt Rate 13 Chronic Kidney Disease: Estimated GFR < 60 mL/min/1.73m2 Severe Kidney Disease: Estimated GFR < 15 mL/min/1.73m2 Calcium Reviewed date:09/09/2024 10:16:33 AM Interpretation: Performing Lab:[facility] [place], [address] [place] [phone] Notes/Report: Calcium 9.0 8.4-10.2 mg/dL IRON PROFILE Reviewed date:09/09/2024 10:16:33 AM Interpretation: Performing Lab:[facility] [place], [address] [place] [phone] Notes/Report: Iron 85 30-160 mcg/dL Total Iron Binding Capacity 344 228-428 mcg/dL Percent Iron Saturation 25 15-50 % Unsaturated Iron Binding 259 Ferritin Reviewed date:09/09/2024 10:16:33 AM Interpretation: Performing Lab:[facility] [place], [address] [place] [phone] Notes/Report: Ferritin 50 10-250 ng/mL Vitamin D 25-OH Total Reviewed date:09/09/2024 10:16:33 AM Interpretation: Performing Lab:[facility] [place], [address] [place] [phone] Notes/Report: Vitamin D 25-OH Total 37.3 >30 [...] Intact Reviewed date:09/09/2024 10:16:33 AM Interpretation: Performing Lab:[facility] [place], [address] [place] [phone] Notes/Report: Parathyroid Hormone Intact 289.2 8.7-77.1 pg/mL MAMMOGRAM DIGITAL BILATERAL SCREEN Reviewed date:04/22/2025 09:38:00 AM Interpretation:undefined Performing Lab: Notes/Report: undefined MM tomosynthesis screening B I Reviewed date:10/05/2024 08:33:40 PM Interpretation: Performing Lab: Notes/Report: [facility] [place] [address] Mammography Report Signed Patient: Jacy Goldberg MR#: [id number] : 1955 Acct:[id number] Age/Sex: 69 / F ADM Date: 09/24/24 Loc: HO.MAMMO Attending Dr: Meño Edwards MD Ordering Physician: Meño Edwards MD Results: 2Benign Findings Date of Service: 09/24/24 Follow Up: 1 Year From Orig inal Mammogram Procedure(s): MM tomosynthesis screening BI Accession Number(s): [id number] cc: Meño Edwards MD EXAMINATION: MM SCREENING [...] 09/29/24 1733 DD/ 0830 TD/TT: 09/24/24 0852 Bark Skinner: [facility] [place] [address] Mammography Report Signed Patient: Shubham Goldberg MR#: [id number] : 1955 Acct:[id number] Age/Sex: 69 / F ADM Date: 09/24/24 Loc: HO.MAMMO Attending Dr: Meño Edwards MD Ordering Physician: Meño Edwards MD Results: 2Benign Findings Date of Service: 09/24/24 Follow Up: 1 Year From Orig ina Mammogram Procedure(s): MM tomosynthesis screening BI Accession Number(s): [id number] cc: Meño Edwards MD EXAMINATION: MM SCREENING [...] 09/29/24 1733 DD/ 0830 TD/TT: 09/24/24 0852 Bark Skinner: Complete Blood Count Auto Di ff Reviewed date:02/27/2025 04:48:33 AM Interpretation: Performing Lab:[facility] [place], [address] [place] [phone] Notes/Report: White Blood Count 5.4 4.8-10.8 X10*3/uL [...] Electrolytes Reviewed date:02/27/2025 04:48:33 AM Interpretation: Performing Lab:[facility] [place], [address] [place] [phone] Notes/Report: Sodium 138 135-145 mmol/L Potassium 5.4 3.3-5.1 mmol/L Chloride 103 96-108 mmol/L Carbon Dioxide 26 22-29 mmol/L Anion Gap 14 12-20 Blood Urea Nitrogen Reviewed date:02/27/2025 04:48:33 AM Interpretation: Performing Lab:[address] [phone] Notes/Report: Blood Urea Nitrogen 70 9-16 mg/dL Creatinine Reviewed date:02/27/2025 04:48:33 AM Interpretation: Performing Lab:[facility] [place], [address] [place] [phone] Notes/Report: Creatinine 3.67 0.5-1.4 mg/dL Estimated Glomerular Filt Rate 12 Chronic Kidney Disease: Estimated GFR < 60 mL/min/1.73m2 Severe Kidney Disease: Estimated GFR < 15 mL/min/1.73m2 Calcium Reviewed date:02/27/2025 04:48:33 AM Interpretation: Performing Lab:[facility] [place], [address] [place] [phone] Notes/Report: Calcium 9.1 8.4-10.2 mg/dL Complete Blood Count Auto Di ff Reviewed date:03/31/2025 07:57:19 AM Interpretation: Performing Lab:[facility] [place], [address] [place] [id number] Notes/Report: White Blood Count 3.2 4.8-10.8 X10*3/uL [...] Electrolytes Reviewed date:03/31/2025 07:57:19 AM Interpretation: Performing Lab:[facility] [place], [address] [place] [phone] Notes/Report: Sodium 145 135-145 mmol/L Potassium 4.8 3.3-5.1 mmol/L Chloride 112 96-108 mmol/L Carbon Dioxide 24 22-29 mmol/L Anion Gap 14 12-20 Blood Urea Nitrogen Reviewed date:03/31/2025 07:57:19 AM Interpretation: Performing Lab:[facility] [place], [address] [place] [id number] Notes/Report: Blood Urea Nitrogen 75 9-16 mg/dL Creatinine Reviewed date:03/31/2025 07:57:19 AM Interpretation: Performing Lab:[address] [phone] Notes/Report: Creatinine 4.52 0.5-1.4 mg/dL Critical value for test(s): CREA Results called to and read back by: DR. ZURITA Person calling: NGUYENQ Date: 03-26-25 Time: 1834 Estimated Glomerular Filt Rate 10 Chronic Kidney Disease: Estimated GFR < 60 mL/min/1.73m2 Severe Kidney Disease: Estimated GFR < 15 mL/min/1.73m2 Calcium Reviewed date:03/31/2025 07:57:19 AM Interpretation: Performing Lab:[address] [address] Notes/Report: Calcium 8.6 8.4-10.2 mg/dL Complete Blood Count Auto Di ff Reviewed date:04/21/2025 07:29:42 AM Interpretation: Performing Lab:[address] [address] Notes/Report: White Blood Count 4.2 4.8-10.8 X10*3/uL [...] NRBC Abs Auto 0.000 0.0-0.012 X10*3/uL Comprehensive Sula. Panel Fa st Reviewed date:04/21/2025 07:29:42 AM Interpretation: Performing Lab:[facility] [place], [address] [place] [phone] Notes/Report: Sodium 146 135-145 mmol/L Potassium 4.4 [...] Panel Reviewed date:04/21/2025 07:29:42 AM Interpretation: Performing Lab:[facility] [place], [address] [place] [phone] Notes/Report: Triglycerides 106 <150 mg/dL Desirable Triglyceride: [...] Problem Status W/U Status Risk Notes Problem 246779903 Underweight (R63.6) Active confirmed Her weight has been stable lately with a body mass index of 18. Problem 161590083 Pancytopenia (D61.818) Active confirmed All 3 cell line s have been diminished. This is likely due to her chronic renal failure. The mean cell volume remains slightly elevated. It is being observed carefully. Problem 415566833 Skin cancer (C44.90) Active confirmed he recently had a basal cell carcinoma removed from the right side of her face and her left arm. There was no sign of residual disease today. Problem Hyperlipidemia (09935714) Hyperlipidemia, unspecified (E78.5) Active confirmed her lipids have been stable. No blood work is available today. A fasting lipid profile has been ordered. No change was made in her regimen. Problem Uncomplicated asthma (disorder) (100748338) Unspecified asthma, uncomplicated (J45.909) Active confirmed She has had no episodes of asthma recently. Problem 040348987 Mild intermittent asthma without complication (J45.20) Active confirmed She has had no difficulty with asthma lately. She has an inhaler which she has not been using. Problem 94413963 Cataracts, bilateral (H26.9) Active confirmed She will continue to see the survey research teacher to resolved these problems. Problem Osteoporosis (51156615) Osteoporosis (M81.0) Active confirmed She has been compliant with his therapy. It was reviewed with her today. Problem 077004601 Osteoarthritis (M19.90) Active confirmed She will continue on current therapy at this time. She will avoid NSAIDs. Problem 69090236 Thyroiditis (E06.9) Active confirmed This is not an active problem. She remains under the care of her rivet tosser. She is asymptomatic at this time. Problem Hypercholesterole brian (71244556) Hypercholestero lemia (E78.00) Active confirmed Comprehensive blood work with a fasting lipid profile is being done periodically. No change in her medication was made today. Her lipids have been controlled. Problem 954860649 Macular degeneration of both eyes, unspecified type (H35.30) Active confirmed Her vision has not changed since her last visit. She really remains under the care of the ophthalmologists . Problem Chronic kidney disease stage 3A (disorder) (397139843) Chronic kidney disease, stage 3a (N18.31) Active confirmed Her GFR is 10. She is on a list to receive a kidney transplant. She may need to begin dialysis if her renal function deteriorates further. She is up-to-date with nephrology. Problem 65952307 Acute idiopathic gout involving toe of left [...] Date Provider Diagnosis Meño Edwards III, MD [address] [place] [address] [place] [address] 08/23/2024 Meño Edwards Underweight R63.6 ; CKD (chronic kidney disease) stage 3, GFR 30-59 ml/min N18.3 ; Mild intermittent asthma without complication J45.20 ; Thrombocytopenia D69.6 ; Thyroiditis E06.9 and Osteoporosis M81.0 Meño Edwards III, MD [address] [place] [address] [place] [address] 11/21/2024 Meño Edwards Underweight R63.6 ; Pancytopenia D61.818 ; Mild intermittent asthma without complication J45.20 ; Osteoarthritis M19.90 ; Osteoporosis M81.0 ; Thyroiditis E06.9 ; Hyperlipidemia, unspecified E78.5 ; Unspecified asthma, uncomplicated J45.909 ; Macular degeneration of both eyes, unspecified type H35.30 ; Skin cancer C44.90 and CKD (chronic kidney disease) stage 3, GFR 30-59 ml/min N18.3 Meño Edwards III, MD [address] [place] [address] [place] [address] 04/22/2025 Meño Edwards Underweight R63.6 ; Pancytopenia D61.818 ; Mild intermittent asthma without complication J45.20 ; Acute idiopathic gout involving toe of left foot M10.072 ; Hyperlipidemia, unspecified E78.5 ; Chronic kidney disease, stage 3a N18.31 ; Osteoporosis M81.0 and Hypercholesterolemia E78.00 Meño Edwards III, MD [address] [place] [address] [place] [address] 06/14/2024 Meño Edwards III, MD [address] [place] [address] [place], [place] [address] 08/31/2024 Meño Edwards III, MD [address] [place] [address] [place], [place] [address] 01/11/2025 Meño Edwards III, MD [address] [place] [address] [place] [address] 01/11/2025 Meoñ Edwards Assessments Encounter Date Diagnosis (ICD Code) [...] list for a kidney transplant by her plant ecologist. 11/21/2024 Underweight (ICD-10 - R63.6) Her weight [...] She remains under the care of her rivet tosser. She is asymptomatic at this time. 11/21/2024 [...] She remains under the care of her rivet tosser. She is asymptomatic at this time. 04/22/2025 [...] under the care of Dr. Ashford, her plant ecologist. She is now on a kidney transplant [...] Provider Name:Meño Edwards , 07/10/2025 09:30:00 AM, [address] [facility] [place], [place], [address], Provider Name:Meño Edwards , 04/23/2026 09:30:00 AM, [address] [facility] [place] [place], [place], [address], Insurance Providers Payer Name Payer Address Payer Phone Subscriber Number Group Number Insured Name Patient Relationship to Insured Coverage Start Date Coverage End Date MEDICARE NGS [address] [place] [address] [phone] [id number] Jacy Goldberg Self - patient is the insured [facility] [address] [place], [place] [id number] Jacy Goldberg Self - patient is the insured Medical (General) History Medical History History ICD Code degenerative arthritis of the cervical s pine spine asthma osteoarthritis hemorhoids thrombocytopenia cataracts last bilateral mammogram 12/18/2012 @ [facility] R&I anemia hyperthyroid abnormal renal function Surgical History Surgery Date(Month/Year) Basal Cell right cheek 2023 Basal Cell removed, Left arm 01/10/2023 biopsy on left index finger 09/2018 colonoscopy, wnl 2008 colonoscopy, adenomatous polyp 2003 right cataract surgery 2011 [id number] septum repair tonsillectomy wisdom teeth extraction Hospitalization History Reason Date(Month/Year) No history
== END 2025-06-07 15:28 | disposition home or self-care (01) ==
LOC: HO.HKA 14:55
PROVIDERS: PCP Internal Medicine Medical Oncology; Visit Provider Internal Medicine Nephrology
DX: N18.4 Chronic kidney disease, stage 4 (severe) (principal); N25.81 Secondary hyperparathyroidism of renal origin; I15.1 Hypertension secondary to other renal disorders; D63.1 Anemia in chronic kidney disease
CPT/HCPCS: 99214

== ENCOUNTER → 2025-06-07 14:54 | Outpatient (BNVA) | payer MEDICARE, SELFPAY | PROVIDERS: PCP Internal Medicine Medical Oncology; Visit Provider Internal Medicine Nephrology | DX: I15.1 Hypertension secondary to other renal disorders (principal); N25.81 Secondary hyperparathyroidism of renal origin; N18.4 Chronic kidney disease, stage 4 (severe); D63.1 Anemia in chronic kidney disease | CPT/HCPCS: 96372; 99212; Q5106 ==

== ENCOUNTER 2025-06-25 08:17 | Outpatient (REF) | payer MEDICARE, SELFPAY ==
--- OUTSIDE RECORDS SUMMARY | 2024-02-03 04:45 | XMS_ITS ---
Author Organization Meño Edwards III, MD Address [address] [place], [place] [address] Care Team Providers Care Director Of Enterprise Architecture Name Role Phone Dr. Meño Edwards III [...] Date Provider Diagnosis Meño Edwards III, MD [address] [place] [address] [place] [address] 02/03/2024 Meño Edwards Hyperlipidemia, unspecified E78.5 ; [...] Provider Name:Meño Edwards , 07/10/2025 09:30:00 AM, [address] [place] [address] [address], [place], [address], Provider Name:Meño Edwards , 04/23/2026 09:30:00 AM, [address] [place] [address] DR, [address], [facility] [place], [address], Progress Notes * Jacy DOMINIQUE SDOB: [birth year] (69 yo F)Acc No.[id number]:02/03/2024 Patient: Jacy Lombardi Provider: Wan Edwards MD [...] of provider rendering services: { ...} [address] [facility] [address] L ocation of patient: sintia scott listed [...] w isdom teeth extraction tonsillectomy septum repair [id number] right cataract surgery 2012colonoscopy, adenomatous polyp 2004colonoscopy, [...] S he is single and comes fom [facility]. She has no children. * Medications: [...] 0 02/03/2024 Generated for Timothy kennedy/Ngoc/Yogesh on: 09:51 AM EST History and Physical Notes * HPI (History of Present Illness) Category Sub-Category Detail Notes Telehealth Location of [facility] rendering services:: {...} [address] [place] [address] [place] [address] Location of patient:: address listed in demographics [...]
--- OUTSIDE RECORDS SUMMARY | 2024-02-10 05:45 | XMS_ITS ---
Author Organization Meño Edwards III, MD Address [address] [place] [address] Care Team Providers Care Audio Recording Engineer Name Role Phone Dr. Meño Edwards III [...] Date Provider Diagnosis Meño Edwards III, MD [address] [place] [address] [place] [address] 02/10/2024 Meño Ernstrne Hyperlipidemia, unspecified E78.5 ; [...] Provider Name:Meño Ernstrne , 07/10/2025 09:30:00 AM, [address] [place] [address] [address], [place], [address], Provider Name:Meño Reilly Edwards , 04/23/2026 09:30:00 AM, [address] [place] [address] [address], [place], [address], Progress Notes * Jacy DOMINIQUE SDOB: [birth year] (69 yo F)Acc No.[id number]:02/10/2024 Patient: Jacy Lombardi Provider: Wan Edwards MD :1955 A ge:69 Y S ex:Female Date:02/10/2024 Address:[address] [place] [phone] Subjective: * Chief Complaints: * P edal [...] of provider rendering services: { ...} [address] [facility] [address] L ocation of patient: a ddress listed [...] w isdom teeth extraction tonsillectomy septum repair [id number] right cataract surgery 2012colonoscopy, adenomatous polyp 2004colonoscopy, [...] S he is single and comes fom [facility]. She has no children. * Medications: [...] 02/10/2024 Generated for Timothy kennedy/Ngoc/Angelaitting on: 1 09:53 AM EST History and Physical Notes * HPI (History of Present Illness) Category Sub-Category Detail Notes Telehealth Location of [facility] rendering services:: {...} [address] [place] [address] Location of patient:: address listed in demographics [...]
--- OUTSIDE RECORDS SUMMARY | 2024-04-19 04:00 | XMS_ITS ---
Author Organization Meño Edwards III, MD Address [address] [place] [address] Care Team Providers Care Camp Nurse Name Role Phone Dr. Meño Edwards III Primary Care Provider [phone] Allergies Allergen (clinical drug ingredient) Drug/Non Drug Allergy documented on EMR Reaction Allergy Type Onset Date Status Seasonale Unknown Drug Allergy Active Results Component Value Reference Range Notes URINE DIP STICK Reviewed date:04/22/2024 06:31:04 AM Interpretation:Normal Performing Lab: Notes/Report: Normal SG 1.000 1.005 - 1.025 pH 5.0 5.0 - 9.0 DIMITRIS neg Negative - NIT neg Negative - PRO 300 Negative - Trace GLU neg Negative - KET neg Negative - UBG 0.2 0.1 - 1.8 SKYLA neg 0.2 - 1.3 BLD trace Negative - Menstrating no REASON FOR VISIT Annual Exam, review labs at Medications Medication SIG (Take, Route, Frequency, Duration) Notes Start Date End Date Status Triamcinolone Acetonide 0.1 % External Active Pulmicort Flexhaler 180 MCG/ACT 2 puffs Inhalation Twice a day October-March Active Sodium Polystyrene Sulfonate - as directed Orally 30 grams per week 03/08/2024 Active Vitamin E Active Calcium + D Active Allopurinol 100 MG TAKE 1 TABLET BY MOUTH DAILY Oral Active amLODIPine Besylate 5 MG 1 1/2 tablet Or ally Once a day 08/04/2023 Active Atorvastatin Calcium 10 MG 1 tablet Orally Once a day 08/04/2023 Active ProAir HFA 108 (90 Base) MCG/ACT [...] nonsmoker Additional Findings: Tobacco Non-User Aggressive non-smoker Problems Problem Type SNOMED Code ICD Code Onset Dates Problem Status W/U Status Risk Notes Problem [id number] Macular degeneration of both eyes, unspecified type (H35.30) Active confirmed Her vision has not changed since her last visit. She really remains under the care of the ophthalmol ogists. Vital Signs Temperature 97.0 degrees Fahrenheit 04/19/20 Blood pressure systolic 138 mm Hg 04/19/20 Blood pressure diastolic 40 mm Hg 024 Heart Rate 65 /min 04/19/2024 Height 65 in 04/19/2024 Weight 109 lbs 04/19/2024 BMI 18.14 kg/m2 04/19/2024 Encounters Encounter Location Date Provider Diagnosis Meño Edwards III, MD [address] [place] [address] [place] [address] 04/19/2024 Meño Edwards Hyperlipidemia, unsp ecified E78.5 ; CKD (chronic kidney disease) stage 3, GFR 30-59 ml/min N18.3 ; Pancytopenia D61.818 ; H/O hyperthyroidism Z86.39 ; Hypercholesterolemia E78.00 ; Neutropenia D70.9 ; Underweight R63.6 ; Mild intermittent asthma without complication J45.20 and Acute idiopathic gout involving toe of left foot M10.072 Assessments Encounter Date Diagnosis (ICD Code) Assessment Notes T reatment Notes Treatment Clinical Notes 04/19/2024 Hyperlipidemia, unspecified (ICD-10 - E78.5) her lipids have been stable. No blood work is available today. A fasting lipid profile has been ordered. No change was made in her regimen. 04/19/2024 CKD (chronic kidney disease) stage 3, GFR 30-59 ml/min (ICD-10 - N18.3) Her GFR is 24 and her creatinine is 3.22. She has an appointment upcoming with nephrology. She was encouraged to stay hydrated and to be compliant with her medications. 04/19/2024 Pancytopenia (ICD-10 - D61.818) All 3 cell lines have been diminished. This is likely due to her chronic renal failure. The mean cell volume remains slightly elevated. It is being observed carefully. 04/19/2024 H/O hyperthyroidism (ICD-10 - Z86.39) She reports a good appetite. She is consuming adequate calories. She remains underweight. Her thyroid function tests will be checked once again. She has a history of thyroiditis. 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 04/19/2024 Hypercholesterolemia (ICD-10 - E78.00) Comprehensive blood work with a fasting lipid profile is being done periodically. No change in her medication was made today. Her lipids have been controlled. 04/19/2024 Neutropenia (ICD-10 - D70.9) Her white blood cell count is 4000. The neutrophil population is normal and the lymphocyte count is 1000 which is slightly low. 04/19/2024 Underweight (ICD-10 - R63.6) Her weight has been stable lately with a body mass index of 17. 04/19/2024 Mild intermittent as thma without complication (ICD-10 - J45.20) She has had no difficulty with asthma lately. She has an inhaler which she has not been using. 04/19/2024 Acute idiopathic gou t involving toe of left foot (ICD-10 - M10.072) The gout has now resolved and she is on allopurinol. Plan Of Treatment Medication Medication Name Sig Start Date Stop Date Notes Triamcinolone Acetonide 0.1 % External Pulmicort Flexhaler 180 MCG/ACT 2 puffs Inhalation Twice a day October-March Sodium Polystyrene Sulfonate - as directed Orally 30 grams per week 03/08/2024 Vitamin E Calcium + D Allopurinol 100 MG TAKE 1 TABLET BY AYESHA TH DAILY Oral amLODIPine Besylate 5 MG 1 1/2 tablet Or ally Once a day 08/04/2023 Atorvastatin Calcium 10 MG 1 tablet Oral ly Once a day 08/04/2023 ProAir HFA 108 (90 Base) MCG/ACT 2 puffs as needed Inhalation every 4 hrs PRN Pending Test Test Name Order Date PROFILE, FASTING (COMPREHENSIVE METABOLI C) 04/19/2024 TSH (THYROID STIMULATING HORMONE) 2023 CBC w DIFF 04/19/2024 Lipid Panel 04/19/2024 Free T4 (Free Thyroxine) 04/19/2024 Next Appt Details Follow Up: In about four mon ths, Reason: To monitor the patient's number of problems Provider Name:Meño Migdalia Grace , 07/10/2025 09:30:00 AM, [address], [place], [address], Provider Name:Meño Edwards , 04/23/2026 09:30:00 AM, [address] [place] [address] [address], [place], [id number], Progress Notes * Pillo DOMINIQUEe SDOB: [birth year] (69 yo F)Acc No.[id number]:04/19/2024 Progress Notes Patient: Jacy GARCIA Provider: Wan Edwards MD :1955 A ge:69 Y S ex:Female Date:04/19/2024 Address:[address] [place] [address] [place], [id number] Subjective: * Chief Complaints: * A nnual Examreview labs at * HPI: D epression Screening: PHQ-9 L ittle interest or pleasure in doing things?Not at all F eeling down, depressed, or hopeless N ot at all T rouble falling or staying asleep, or sleeping too much N early every day F eeling tired or having little energy N early every day P oor appetite or overeating N early every day F eeling bad about yourself or that you are a failure, or have let yourself or your family down N ot at all T rouble concentrating on things, such as reading the newspaper or watching television N ot at all M oving or speaking so slowly that other people could have noticed; or the opposite, being so fidgety or restless that you have been moving around a lot more than usual N ot at all T houghts that you would be better off or of hurting yourself in some way N ot at all T otal Score 9 I nterpretation M ild Depression C OVID-19 Screening: Questions H ave you experienced fever, chills, cough, sore throat, shortness of breath, difficulty breathing, muscle aches, loss of taste or smell? N o H ave you been exposed to the virus within the last 10 days? N o H ave you travelled internationally in the last 10 days? N o H ave you been exposed to COVID-19 in the past? N o S SRIDHAR Questions: SDOH Questions I n the past year have you been worried about losing your housing? N o I n the past year have you or any family members you live with been unable to get any of the following when it was really needed? Check all that apply: N one F all Risk Screening: Fall History H ave you had any falls with injury in the past year? N o H ave you had two or more falls in the past year? N o F all Risk Assessment: N o falls in the past year * : The patient, a 69-year-old female, reported a persistent issue that began in November. She initially experienced symptoms of a sinus infection, including congestion and an upset stomach, which she attributed to mucus drainage. Despite treatment, the symptoms persisted and evolved to include discomfort in the upper abdomen and a constant sour taste in her mouth. The patient also reported an increased appetite, particularly at night. The discomfort was initially located lower but has since moved up. The patient denied experiencing a sore throat but did mention frequently clearing her throat. The symptoms are constant and have not been alleviated by any medication. Recommended a course of omeprazole 20 mg daily for 21 days with a follow-up visit as this sounds mostly I nocturnal esophageal reflux. Her renal functions were discussed. She is up-to-date with nephrology. She is otherwise asymptomatic.Her trauma manager saw her recently and told her she has early macular degeneration. Vitamins were recommended. Follow-up was arranged. * ROS: G eneral/Constitutional: pain o nly normal aches and pains. C hills d enies.?Fatigue a dmits. F ever d enies. A llergy/Immunology: Admits C ongestion. E NT: Decreased hearing d enies. D enies S ore throat.? R espiratory: Cough d enies. C ardiovascular: Chest pain with exertion d enies. D yspnea on exertion?denies. S hortness of breath d enies. G astrointestinal: Constipation o ccasional. D ecreased appetite d enies. D iarrhea d enies. H eartburn o ccasional. N ausea d enies. R ectal bleeding [...] w isdom teeth extraction tonsillectomy septum repair [id number] right cataract surgery 2012colonoscopy, adenomatous polyp 2004colonoscopy, wnl 2009biopsy on left index finger 09/2018Basal Cell removed, Left arm 01/10/2023No history * Hospitalization/Major Diagno stic Procedure: N o history * Family History: F ather: 95 yrs, hyperlipidemia, hypertension, diagnosed with HTN, Hyperlipidemia, Cancer. M other: 75 yrs, liver cancer, [...] She has no children. * Medications: T akingSodium Polystyrene Sulfonate - Powder as directed Orally 30 grams per week Pulmicort Flexhaler 180 MCG/ACT Aerosol Powder Breath Activated 2 puffs Inhalation Twice a day , Notes to Pharmacist: October-MarchProAir HFA 108 (90 Base) MCG/ACT Aerosol Solution 2 puffs as needed Inhalation every 4 hrs , Notes to Pharmacist: PRNCalcium + D Allopurinol 100 MG Tablet two daily Oral amLODIPine Besylate 5 MG Tablet 1 tablet Orally Once a day Atorvastatin Calcium 10 MG Tablet 1 tablet Orally Once a day Taking Sodium Polystyrene Sulfonate - Powder as directed Orally 30 grams per week Taking Pulmicort Flexhaler 180 MCG/ACT Aerosol Powder Breath Activated 2 puffs Inhalation Twice a day , Notes to Pharmacist: ProAir HFA 108 (90 Base) MCG/ACT Aerosol Solution 2 puffs as needed Inhalation every 4 hrs , Notes to Pharmacist: PRNTaking Calcium + D Taking Allopurinol 100 MG Tablet two daily Oral Taking amLODIPine Besylate 5 MG Tablet 1 tablet Orally Once a day Taking Atorvastatin Calcium 10 MG Tablet 1 tablet Orally Once a day DiscontinuedVitamin E Triamcinolone Acetonide 0.1 % Cream External Medication List reviewed and reconciled with the patientDiscontinued Vitamin E Discontinued Triamcinolone Acetonide 0.1 % Cream External Medication List reviewed and reconciled with the patient * Allergies: S divya[Allergies Verified] Objective: * Vitals: H t: 65, Wt:109, BMI:18.14, BP:138/40, HR:65, Temp:97.0, Ht-cm: 165.1, Wt-k.44. * P ast Orders: Lab:Comprehensive Met. Panel * Collection Date 01/31/2024 01/10/2023 10/04/2022 Collection Time 10:50 AM 08:32 AM 10:14 AM Order Date 01/31/2024 01/10/2023 10/04/2022 Sodium 142 (Ref Range: 135-145 mmol/L) 145 (Ref Range: 135-145 mmol/L) 143 (Ref Range: 135-145 mmol/L) Bilirubin Total 0.2 (Ref Range: 0.0-1.0 mg/dL) 0.3 (Ref Range: 0.0-1.0 mg/dL) 0.4 (Ref Range: 0.0-1.0 mg/dL) Aspartate Amino Transferase 33 H (Ref Range: 5-31 U/L) 35 H (Ref Range: 5-31 U/L) 42 H (Ref Range: 5-31 U/L) Alanine Aminotransferase 28 (Ref Range: 0-31 U/L) 35 H (Ref Range: 0-31 U/L) 41 H (Ref Range: 0-31 U/L) Total Protein 6.9 (Ref Range: 6.5-8.0 g/dL) 6.3 L (Ref Range: 6.5-8.0 g/dL) 5.9 L (Ref Range: 6.5-8.0 g/dL) Albumin Level 4.4 (Ref Range: 3.5-5.0 g/dL) 4.1 (Ref Range: 3.5-5.0 g/dL) 4.0 (Ref Range: 3.5-5.0 g/dL) Alkaline Phosphatase 85 (Ref Range: 39-117 U/L) 76 (Ref Range: 39-117 U/L) 93 (Ref Range: 39-117 U/L) Potassium 4.8 (Ref Range: 3.3-5.1 mmol/L) 4.7 (Ref Range: 3.3-5.1 mmol/L) 4.7 (Ref Range: 3.3-5.1 mmol/L) Chloride 108 (Ref Range: 96-108 mmol/L) 114 H (Ref Range: 96-108 mmol/L) 110 H (Ref Range: 96-108 mmol/L) Carbon Dioxide 23 (Ref Range: 22-29 mmol/L) 23 (Ref Range: 22-29 mmol/L) 23 (Ref Range: 22-29 mmol/L) Anion Gap 16 (Ref Range: 12-20) 13 (Ref Range: 12-20) 15 (Ref Range: 12-20) Blood Urea Nitrogen 66 H (Ref Range: 9-16 mg/dL) 53 H (Ref Range: 9-16 mg/dL) 56 H (Ref Range: 9-16 mg/dL) Creatinine 3.22 H (Ref Range: 0.5-1.4 mg/dL) 2.59 H (Ref Range: 0.5-1.4 mg/dL) 2.71 H (Ref Range: 0.5-1.4 mg/dL) Estimated Glomerular Filt Rate 14 18 17 Glucose Random 88 (Ref Range: 60-115 mg/dL) 98 (Ref Range: 60-115 mg/dL) 87 (Ref Range: 60-115 mg/dL) Calcium 9.3 (Ref Range: 8.4-10.2 mg/dL) 9.7 (Ref Range: 8.4-10.2 mg/dL) 9.1 (Ref Range: 8.4-10.2 mg/dL) * Lab:Complete Blood Count Aut o Diff * Collection Date 04/13/2024 01/31/2024 09/09/2023 Collection Time 07:26 AM 10:50 AM 12:19 PM Order Date 04/13/2024 01/31/2024 09/09/2023 White Blood Count 4.2 L (Ref Range: 4.8-10.8 X10*3/uL) 4.7 L (Ref Range: 4.8-10.8 X10*3/uL) 7.3 (Ref Range: 4.8-10.8 X10*3/uL) Red Blood Count 2.99 L (Ref Range: 4.20-5.50 X10*6/uL) 3.02 L (Ref Range: 4.20-5.50 X10*6/uL) 3.59 L (Ref Range: 4.20-5.50 X10*6/uL) Hemoglobin 9.6 L (Ref Range: 12.0-16.0 g/dl) 9.6 L (Ref Range: 12.0-16.0 g/dl) 11.3 L (Ref Range: 12.0-16.0 g/dl) Hematocrit 30.0 L (Ref Range: 37.0-47.0 %) 30.6 L (Ref Range: 37.0-47.0 %) 35.5 L (Ref Range: 37.0-47.0 %) Mean Corpuscular Volume 100.3 H (Ref Range: 80.0-98.0 fL) 101.3 H (Ref Range: 80.0-98.0 fL) 98.9 H (Ref Range: 80.0-98.0 fL) Mean Corpuscular Hemoglobin 32.1 (Ref Range: 27.0-33.0 pg) 31.8 (Ref Range: 27.0-33.0 pg) 31.5 (Ref Range: 27.0-33.0 pg) Mean Corpuscular HGB Conc 32.0 (Ref Range: 31.0-35.0 g/dl) 31.4 (Ref Range: 31.0-35.0 g/dl) 31.8 (Ref Range: 31.0-35.0 g/dl) Red Cell Distribution Width 13.6 (Ref Range: 11.0-16.0 %) 13.2 (Ref Range: 11.0-16.0 %) 12.2 (Ref Range: 11.0-16.0 %) Platelet Count 139 L (Ref Range: 160-400 X10*3/uL) 114 L (Ref Range: 160-400 X10*3/uL) 161 (Ref Range: 160-400 X10*3/uL) Mean Platelet Volume 11.1 (Ref Range: 9.4-12.3 fL) 11.0 (Ref Range: 9.4-12.3 fL) 11.3 (Ref Range: 9.4-12.3 fL) Neutrophils Percent Auto 62.3 (Ref Range: 45-73 %) 69.4 (Ref Range: 45-73 %) 78.8 H (Ref Range: 45-73 %) Imm Gran Pct Auto 0.2 (Ref Range: 0.0-0.4 %) 0.4 (Ref Range: 0.0-0.4 %) 0.4 (Ref Range: 0.0-0.4 %) Lymphocytes Percent Auto 24.5 (Ref Range: 20-40 %) 20.1 (Ref Range: 20-40 %) 13.7 L (Ref Range: 20-40 %) Monocytes Percent Auto 9.0 (Ref Range: 2-11 %) 8.6 (Ref Range: 2-11 %) 5.8 (Ref Range: 2-11 %) Eosinophils Percent Auto 3.5 (Ref Range: 0-4 %) 1.1 (Ref Range: 0-4 %) 1.2 (Ref Range: 0-4 %) Basophils Percent Auto 0.5 (Ref Range: 0-2 %) 0.4 (Ref Range: 0-2 %) 0.1 (Ref Range: 0-2 %) NRBC Pct Auto 0.0 (Ref Range: 0.0-0.2 /100WBC) 0.0 (Ref Range: 0.0-0.2 /100WBC) 0.0 (Ref Range: 0.0-0.2 /100WBC) Neutrophils Absolute Auto 2.6 (Ref Range: 2.0-8.3 x10*3/uL) 3.2 (Ref Range: 2.0-8.3 x10*3/uL) 5.7 (Ref Range: 2.0-8.3 x10*3/uL) Imm Gran Abs Auto 0.01 (Ref Range: 0.00-0.03 X10*3/uL) 0.02 (Ref Range: 0.00-0.03 X10*3/uL) 0.03 (Ref Range: 0.00-0.03 X10*3/uL) Lymphocytes Absolute Auto 1.0 L (Ref Range: 1.2-4.9 X10*3/uL) 0.9 L (Ref Range: 1.2-4.9 X10*3/uL) 1.0 L (Ref Range: 1.2-4.9 X10*3/uL) Monocytes Absolute Auto 0.4 (Ref Range: 0.1-1.2 X10*3/uL) 0.4 (Ref Range: 0.1-1.2 X10*3/uL) 0.4 (Ref Range: 0.1-1.2 X10*3/uL) Eosinophils Absolute Auto 0.2 (Ref Range: 0.0-0.4 X10*3/uL) 0.1 (Ref Range: 0.0-0.4 X10*3/uL) 0.1 (Ref Range: 0.0-0.4 X10*3/uL) Basophils Absolute Auto 0.0 (Ref Range: 0.0-0.2 X10*3/uL) 0.0 (Ref Range: 0.0-0.2 X10*3/uL) 0.0 (Ref Range: 0.0-0.2 X10*3/uL) NRBC Abs Auto 0.000 (Ref Range: 0.0-0.012 X10*3/uL) 0.000 (Ref Range: 0.0-0.012 X10*3/uL) 0.000 (Ref Range: 0.0-0.012 X10*3/uL) * Lab:Blood Urea Nitrogen * Collection Date 03/02/2024 09/09/2023 09/08/2021 Collection Time 12:58 PM 12:19 PM 11:19 AM Order Date 03/02/2024 09/09/2023 09/08/2021 Blood Urea Nitrogen 63 H (Ref Range: 9-16 mg/dL) 76 H (Ref Range: 9-16 mg/dL) 62 H (Ref Range: 9-16 mg/dL) * Lab:Electrolytes * Collection Date 03/02/2024 09/09/2023 07/22/2022 Collection Time 12:58 PM 12:19 PM 11:05 AM Order Date 03/02/2024 09/09/2023 07/22/2022 Sodium 140 (Ref Range: 135-145 mmol/L) 145 (Ref Range: 135-145 mmol/L) 143 (Ref Range: 135-145 mmol/L) Potassium 5.5 H (Ref Range: 3.3-5.1 mmol/L) 4.8 (Ref Range: 3.3-5.1 mmol/L) 4.9 (Ref Range: 3.3-5.1 mmol/L) Chloride 110 H (Ref Range: 96-108 mmol/L) 111 H (Ref Range: 96-108 mmol/L) 112 H (Ref Range: 96-108 mmol/L) Carbon Dioxide 21 L (Ref Range: 22-29 mmol/L) 24 (Ref Range: 22-29 mmol/L) 21 L (Ref Range: 22-29 mmol/L) Anion Gap 15 (Ref Range: 12-20) 15 (Ref Range: 12-20) 15 (Ref Range: 12-20) ???Lab:Creatinine Clearance Urine (Order Date - 03/02/2024) (Collection Date & Time - 03/02/2024 08:00 AM)?ValueReference Range?Creatinine (CrCl) 3.04H0.5-1.4 - mg/dL?Creatinine Fcbtrczio24.4O80-042 - mL/min ?Creatinine, 24Hr Urine0.8L1.0-2.0 - G/Day?Total Volume 24 Hour Dpetv4858- mL?Creatinine, mg/dL40.82- * Lab:Creatinine * Collection Date 03/02/2024 09/09/2023 09/08/2021 Collection Time 12:58 PM 12:19 PM 11:19 AM Order Date 03/02/2024 09/09/2023 09/08/2021 Creatinine 3.04 H (Ref Range: 0.5-1.4 mg/dL) 3.26 H (Ref Range: 0.5-1.4 mg/dL) 2.29 H (Ref Range: 0.5-1.4 mg/dL) Estimated Glomerular Filt Rate 15 14 21 * Examination: G eneral Examination: GENERAL APPEARANCE: p leasant, well nourished, well developed, in no acute distress, calm and relaxed, underweight, woman. HEAD: a traumatic, normocephalic. EYES: e [place], perrla, anicteric, conjugate. EARS: n ormal. NOSE: s eptum intact. ORAL CAVITY: n ormal, unremarkable. NECK/THYROID: n o jugular venous distention, no carotid bruit, thyroid normal. LYMPH NODES: n o enlarged lymph nodes,spleen normal. SKIN: n o suspicious lesions, anicteric. HEART: n o clicks, gallops, murmurs, or rubs, regular rhythm, S1, S2 normal, no s3, or vascular bruits. LUNGS: c lear to auscultation . BREASTS: N ot examined. ABDOMEN: b owel sounds normal, no ascites, no organomegaly, no mass. RECTAL EXAM: n ot examined. MUSCULOSKELETAL: e xtremities unremarkable, no clubbing, cyanosis or edema. PERIPHERAL PULSES: n ormal. NEUROLOGIC: a lert and oriented, cranial nerves 2-12 grossly intact, deep tendon reflexes 2+ symmetrical, motor strength normal upper and lower extremities, sensory exam intact. PSYCH: a lert, oriented. Assessment: * Assessment: 1. C KD (chronic kidney disease) stage 3, GFR 30-59 ml/min - N18.3 (Primary) N otes :Her GFR is 24 and her creatinine is 3.22. She has an appointment upcoming with nephrology. She was encouraged to stay hydrated and to be compliant with her medications. 2 . H yperlipidemia, unspecified - E78.5 N otes :her lipids have been stable. No blood work is available today. A fasting lipid profile has been ordered. No change was made in her regimen. 3 . P ancytopenia - D61.818 N otes :All 3 cell lines have been diminished. This is likely due to her chronic renal failure. The mean cell volume remains slightly elevated. It is being observed carefully. 4 . H /O hyperthyroidism - Z86.39 N otes :She reports a good appetite. She is consuming adequate calories. She remains underweight. Her thyroid function tests will be checked once again. She has a history of thyroiditis. 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 5 . H ypercholesterolemia - E78.00 N otes :Comprehensive blood work with a fasting lipid profile is being done periodically. No change in her medication was made today. Her lipids have been controlled. 6 . N eutropenia - D70.9 N otes :Her white blood cell count is 4000. The neutrophil population is normal and the lymphocyte count is 1000 which is slightly low. 7 . U nderweight - R63.6 N otes :Her weight has been stable lately with a body mass index of 17. 8 . M ild intermittent asthma without complication - J45.20 N otes :She has had no difficulty with asthma lately. She has an inhaler which she has not been using. 9 . A cute idiopathic gout involving toe of left foot - M10.072 ?Notes :The gout has now resolved and she is on allopurinol. Plan: * Treatment: 2. P ancytopenia L AB: PROFILE, FASTING (COMPREHENSIVE METABOLIC) L AB: TSH (THYROID STIMULATING HORMONE) L AB: CBC w DIFF L AB: Lipid Panel L AB: Free T4 (Free Thyroxine) 3. H /O hyperthyroidism L AB: PROFILE, FASTING (COMPREHENSIVE METABOLIC) L AB: TSH (THYROID STIMULATING HORMONE) L AB: CBC w DIFF L AB: Lipid Panel L AB: Free T4 (Free Thyroxine) 4. H ypercholesterolemia L AB: PROFILE, FASTING (COMPREHENSIVE METABOLIC) L AB: TSH (THYROID STIMULATING HORMONE) L AB: CBC w DIFF L AB: Lipid Panel L AB: Free T4 (Free Thyroxine) 5. N eutropenia L AB: PROFILE, FASTING (COMPREHENSIVE METABOLIC) L AB: TSH (THYROID STIMULATING HORMONE) L AB: CBC w DIFF L AB: Lipid Panel L AB: Free T4 (Free Thyroxine) 6. O thers Continue Pulmicort Flexhaler Aerosol Powder Breath Activated, 180 MCG/ACT, 2 puffs, Inhalation, Twice a day, Notes to Pharmacist: October-March; C ontinue ProAir HFA Aerosol Solution, 108 (90 Base) MCG/ACT, 2 puffs as needed, Inhalation, every 4 hrs, Notes to Pharmacist: PRN; C ontinue Vitamin E; C ontinue Calcium + D; C ontinue Allopurinol Tablet, 100 MG, TAKE 1 TABLET BY MOUTH DAILY, Oral; C ontinue amLODIPine Besylate Tablet, 5 MG, 1 1/2 tablet, Orally, Once a day. ? * Labs: * L ab: URINE DIP STICK (Collection Date & Time - 04/19/2024 09:15 AM) N ormal Value Reference Range S G 1.000 1.005 - 1.025 * p H 5.0 5.0 - 9.0 * L EU neg Negative - * N IT neg Negative - * P RO 300 Negative - Trace * G YUNIER neg Negative - * K ET neg Negative - * U BG 0.2 0.1 - 1.8 * B IL neg 0.2 - 1.3 * B LD trace Negative - * M enstrating no * Procedure Codes: 8 1002 URINE-NO MICRO * Preventive Medicine: Counseling: C are goal follow-up plan: Counseling for abnormal BMI given Y es Below Normal BMI Follow-up D ietary education for weight gain * Follow Up: I n about four months (Reason: To monitor the patient's number of problems) * Images: * Sign off status: Completed true * Provider: Wan Edwards MD Date: Generated for Timothy kennedy/Ngoc/eTransmitting on: 09:53 AM EST History and Physical Notes * HPI (History of Present Illness) Category Sub-Category Detail Notes Depression Screening PHQ-9 Little inte rest or pleasure in doing things: Not at all Feeling down, depressed, or hopeless: No t at all Trouble falling or staying asleep, or sl eeping too much: Nearly every day Feeling tired or having little energy: N early every day Poor appetite or overeating: Nearly ever y day Feeling bad about yourself o r that you are a failure, or have let yourself or your family down: Not at all Trouble concentrating on thi ngs, such as reading the newspaper or watching television: Not at all Moving or speaking so slowly that other people could have noticed; or the opposite, being so fidgety or restless that you have been moving around a lot more than usual: Not at all Thoughts that you would be b sue off or of hurting yourself in some way: Not at all Total Score: 9 Interpretation: Mild Depression Fall Risk Screening Fall History Have you had any falls with injury in the past year?: No Have you had two or more falls in the ?: No Fall Risk Assessment:: No falls in the COVID-19 Screening Questions Have you had any new onset fever, chills, cough, congestion, sore throat, shortness of breath, muscle aches?: No Have you been exposed to the virus with n the last 10 days?: No Have you travelled internationally in last 10 days?: No Have you been exposed to COVID-19 in the past?: No SDOH Questions SDOH Questions In the past year have you been worried about losing your housing?: No In the past year have you or any family members you live with been unable to get any of the following when it was really needed? Check all that apply:: None Examination Category Sub-Category Detail Notes General Examination GENERAL APPEARANCE: pleasant , well nourished, well developed, in no acute distress, calm and relaxed, underweight, woman HEAD: atraumatic, normocep halic EYES: eomi, perrla, anicte mart, conjugate EARS: normal NOSE: septum intact NECK/THYROID: no jugular venous di stention, no carotid bruit, thyroid normal HEART: no clicks, gallops, murmurs, or rubs, regular rhythm, S1, S2 normal, no s3, or vascular bruits LUNGS: clear to auscultatio n ABDOMEN: bowel sounds normal, no ascites, no organomegaly, no mass NEUROLOGIC: alert and oriented, cranial nerves 2-12 grossly intact, deep tendon reflexes 2+ symmetrical, motor strength normal upper and lower extremities, sensory exam intact SKIN: no suspicious lesion s, anicteric PERIPHERAL PULSES: normal BREASTS: Not examined MUSCULOSKELETAL: extremities unremark able, no clubbing, cyanosis or edema LYMPH NODES: no enlarged lymph no ivett,spleen normal RECTAL EXAM: not examined PSYCH: alert, oriented ORAL CAVITY: normal, unremarkable
--- OUTSIDE RECORDS SUMMARY | 2024-06-14 09:47 | XMS_ITS ---
Author Organization Meño Edwards III, MD Address [address] [place] [address] Care Team Providers Care Environmental Field Services Technician Name Role Phone Dr. Meño Edwards III Primary Care Provider REASON FOR VISIT Message Social History Sex Assigned At : Social History Observation Description Sex Assigned At Female Encounters Encounter Location Date Provider Diagnosis Meño Edwards III, MD [address] [place] [address] [place] [address] 06/14/2024 Meño Edwards Plan Of Treatment Next Appt Details Provider Name:Meño Edwards , 07/10/2025 09:30:00 AM, [address] [place] [address] [place], [address], Provider Name:Meño Edwards , 04/23/2026 09:30:00 AM, [address] [place] [address] [place], [address], Progress Notes * Jacy DOMINIQUE SDOB: [birth year] (69 yo F)Acc No.[id number]:06/14/2024 Patient: Aidee ADAMSIMBA Jacy Alexandro :1955 A ge:69 Y S ex:Female Address:[place] [address] * true * Date: Generated for Printi ng/Faxing/eTransmitting on: 09:52 AM EST
--- OUTSIDE RECORDS SUMMARY | 2024-08-23 04:30 | XMS_ITS ---
Author Organization Meño Edwards III, MD Address [address] [place] [place] [address] Care Team Providers Care Certified Novell Administrator Name Role Phone Dr. Meño Edwards III [...] Date Provider Diagnosis Meño Edwards III, MD [address] [place] [address] [address], [place] [address] 08/23/2024 Meño Edwards Underweight R63.6 ; CKD [...] list for a kidney transplant by her plate former. 08/23/2024 Mild intermittent asthma without complication (ICD-10 - J45.20) She has had no difficulty with asthma lately. She has an inhaler which she has not been using. 08/23/2024 Thrombocytopenia (ICD-10 - D69.6) She has had no bleeding and is avoiding aspirin. 08/23/2024 Thyroiditis (ICD-10 - E06.9) This is not an active problem. She remains under the care of her ship engineer. She is asymptomatic at this time. 08/23/2024 [...] Provider Name:Meño Edwards , 07/10/2025 09:30:00 AM, [address] [place] [address] [address], [place], [address], Provider Name:Meño Edwards , 04/23/2026 09:30:00 AM, [address] [place] [address] [address], [place], [address], Progress Notes * Jacy DOMINIQUE SDOB: [birth year] (69 yo F)Acc No.[id number]:08/23/2024 Progress Notes Patient: Jacy GARCIA Provider: Wan Edwards MD :1955 A ge:69 Y S ex:Female Date:08/23/2024 Address:[address] [place] [address] [place], [id number] Subjective: * Chief Complaints: * U nderweightPancytopeniaAsthmaCKDGoutMacular degenerationOn kidney transplant list * HPI: C OVID-19 Screening: moving to [place] dont know when. Questions H ave you [...] her new glasses. She has seen an senior court office assistant twice this year for this issue. The [...] w isdom teeth extraction tonsillectomy septum repair [id number] right cataract surgery 2012colonoscopy, adenomatous polyp 2004colonoscopy, [...] S he is single and comes fom [facility]. She has no children. * Medications: T [...] list for a kidney transplant by her plate former. 2 . U nderweight - R63.6 N [...] She remains under the care of her ship engineer. She is asymptomatic at this time. 6 [...] 0 08/23/2024 Generated for Deepikai brent/Ngoc/eTransmitting on: 09:53 AM EST History and Physical [...]
--- OUTSIDE RECORDS SUMMARY | 2024-08-31 07:11 | XMS_ITS ---
Author Organization Meño Edwards III, MD Address [address] [place] [address] Care Team Providers Care Nurse First Assist Name Role Phone Dr. Meño Edwards III Primary Care Provider REASON FOR VISIT Rx Refill Medications Medication SIG (Take, Route, Frequency, Duration) Notes Start Date End Date Status amLODIPine Besylate 5 MG 1 tablet Orally Once a day for 30 days Active Social History Sex Assigned At : Social History Observation Description Sex Assigned At Female Encounters Encounter Location Date Provider Diagnosis Meño Edwards III, MD [address] [place] [address] [place] [address] 08/31/2024 Meño Edwards Plan Of Treatment Medication Medication Name Sig Start Date Stop Date Notes amLODIPine Besylate 5 MG 1 tablet Orally Once a day for 30 days Next Appt Details Provider Name:Meño Edwards , 07/10/2025 09:30:00 AM, [address] [place] [address] [place], [address], Provider Name:Meño Edwadrs , 04/23/2026 09:30:00 AM, [address] [place] [address] [place], [address], Progress Notes * Jacy DOMINIQUE SDOB: [birth year] (69 yo F)Acc No.[id number]:08/31/2024 Patient: Jacy GARCIA :1955 A ge:69 Y S ex:Female [address] [place] [address] * Refills Refill amLODIPine Besylate Tablet, 5 MG, Orally, 30 Tablet, 1 tablet, Once a day, 30 days, Refills=11 * true * Date: Generated for Timothy kennedy/Ngoc/Yogesh on: 09:51 AM EST
--- OUTSIDE RECORDS SUMMARY | 2024-11-21 04:30 | XMS_ITS ---
Author Organization Meño Edwards III, MD Address [address] [place] [address] Care Team Providers Care Senior Quantity Surveyor Name Role Phone Dr. Meño Edwards III Primary Care Provider [phone] Allergies Allergen (clinical drug ingredient) Drug/Non Drug Allergy documented on EMR Reaction Allergy Type Onset Date Status Seasonale Unknown Drug Allergy Active REASON FOR VISIT Chronic renal failure, Under weight, Pancytopenia, asthma, History of thyroiditis, Osteoporosis, Gout Medications Medication SIG (Take, Route, Frequency, Duration) Notes Start Date End Date Status Calcium + D Active Vitamin E Active Triamcinolone Acetonide 0.1 % External Active Allopurinol 100 MG TAKE 1 TABLET BY MOUTH DAILY Oral Active Sodium Polystyrene Sulfonate - as directed Orally 30 grams per week 03/08/2024 Active Atorvastatin Calcium 10 MG TAKE 1 TABLET BY MOUTH EVERY DAY Active amLODIPine Besylate 5 MG TAKE 1 TABLET B Y MOUTH EVERY DAY Active ProAir HFA 108 (90 Base) MCG/ACT 2 puffs as needed Inhalation every 4 hrs PRN Active Pulmicort Flexhaler 180 MCG/ACT 2 puffs Inhalation Twice a day October-March Active Social History Tobacco Use: Social History Observation Description Date Details (start date - stop date) Never Smoker NA - NA Sex Assigned At : Social History Observation Description Sex Assigned At Female Tobacco Use/Smoking Question Answer Notes Patient is a nonsmoker Additional Findings: Tobacco Non-User Aggressive non-smoker Vital Signs Temperature 97.7 degrees Fahrenheit 11/22/19 25 Blood pressure systolic 125 mm Hg 11/22/19 25 Blood pressure diastolic 60 mm Hg 025 Heart Rate 59 /min 11/21/2024 Height 65 in 11/21/2024 Weight 114 lbs 11/21/2024 BMI 18.97 kg/m2 11/21/2024 Encounters Encounter Location Date Provider Diagnosis Meño Edwards III, MD [address] [place] [address] [address], [place] [address] 11/21/2024 Meño Edwards Underweight R63.6 ; Pancytopenia D61.818 ; Mild intermittent asthma without complication J45.20 ; Osteoarthritis M19.90 ; Osteoporosis M81.0 ; Thyroiditis E06.9 ; Hyperlipidemia, unspecified E78.5 ; Unspecified asthma, uncomplicated J45.909 ; Macular degeneration of both eyes, unspecified type H35.30 ; Skin cancer C44.90 and CKD (chronic kidney disease) stage 3, GFR 30-59 ml/min N18.3 Assessments Encounter Date Diagnosis (ICD Code) Assessment Notes Treat ment Notes Treatment Clinical Notes 11/21/2024 Underweight (ICD-10 - R63.6) Her weight has been stable lately with a body mass index of 18. 11/21/2024 Pancytopenia (ICD-10 - D61.818) All 3 cell lines have been diminished. This is likely due to her chronic renal failure. The mean cell volume remains slightly elevated. It is being observed carefully. 11/21/2024 Mild intermittent asthma without complication (ICD-10 - J45.20) She has had no difficulty with asthma lately. She has an inhaler which she has not been using. 11/21/2024 Osteoarthritis (ICD-10 - M19.90) She will continue on current therapy at this time. She will avoid NSAIDs. 11/21/2024 Osteoporosis (ICD-10 - M81.0) She has been compliant with his therapy. It was reviewed with her today. 11/21/2024 Thyroiditis (ICD-10 - E06.9) This is not an active problem. She remains under the care of her mortician helper. She is asymptomatic at this time. 11/21/2024 Hyperlipidemia, unspecified (ICD-10 - E78.5) her lipids have been stable. No blood work is available today. A fasting lipid profile has been ordered. No change was made in her regimen. 11/21/2024 Unspecified asthma, uncomplicated (ICD-10 - J45.909) She has had no episodes of asthma recently. 11/21/2024 Macular degeneration of both eyes, unspecified type (ICD-10 - H35.30) Her vision has not changed since her last visit. She really remains under the care of the ophthalmologists. 11/21/2024 Skin cancer (ICD-10 - C44.90) he recently had a basal cell carcinoma removed from the right side of her face and her left arm. There was no sign of residual disease today. 11/21/2024 CKD (chronic kidney disease) stage 3, GFR 30-59 ml/min (ICD-10 - N18.3) She remains under the care of Dr. Ashford, her senior account executive. She is now on a kidney transplant list and is being prepared for transplantation. Plan Of Treatment Medication Medication Name Sig Start Date Stop Date Notes Calcium + D Vitamin E Triamcinolone Acetonide 0.1 % External Allopurinol 100 MG TAKE 1 TABLET BY AYESHA TH DAILY Oral Sodium Polystyrene Sulfonate - as directed Orally 30 grams per week 03/08/2024 Atorvastatin Calcium 10 MG TAKE 1 TABLET BY MOUTH EVERY DAY amLODIPine Besylate 5 MG TAKE 1 TABLET B Y MOUTH EVERY DAY ProAir HFA 108 (90 Base) MCG/ACT 2 puffs as needed Inhalation every 4 hrs PRN Pulmicort Flexhaler 180 MCG/ACT 2 puffs Inhalation Twice a day October-March Pending Test Test Name Order Date PROFILE, FASTING (COMPREHENSIVE METABOLI C) 11/21/2024 CBC w DIFF 11/21/2024 Uric Acid 11/21/2024 Lipid Panel 11/21/2024 Vitamin D 25-OH Total 11/21/2024 Next Appt Details Follow Up: As Scheduled, Danielle son: Annual Exam Provider Name:Meño Edwards , 07/10/2025 09:30:00 AM, [address] [place] [address] [address] [place], [address], Provider Name:Meño Edwards , 04/23/2026 09:30:00 AM, [address] [place] [address] [place], [address], Progress Notes * Jacy DOMINIQUE SDOB: [birth year] (69 yo F)Acc No.[id number]:11/21/2024 Progress Notes Patient: Jacy GARCIA Provider: Wan Edwards MD :1955 A ge:69 Y S ex:Female Date:11/21/2024 Address: [address] [id number] Subjective: * Chief Complaints: * C hronic renal failureUnder weightPancytopeniaAsthmaHistory of thyroiditisOsteoporosisGout * HPI: C OVID-19 Screening: Christa reilly returns for management of medical issues. She remains under weight, despite a good appetite. She has had no recent infections or episodes of bleeding. He has been treated for her lipids and osteoporosis. She has had no gout since her last visit. She has had no wheezing despite it being pollen season. No new skin cancers have appeared. No comprehensive blood work is available today. She is going to see her senior account executive next week and will have blood work done.. Then. She is being prepared for renal transplantation. She recently had a nuclear medicine cardiac stress test. She is about to begin vaccines prior to transplantation. He has been placed on the transplant list. Questions H ave you had any new onset fever, chills, cough, congestion, sore throat, shortness of breath, muscle aches? N o * ROS: G eneral/Constitutional: pain o nly [...] w isdom teeth extraction tonsillectomy septum repair [id number] right cataract surgery 2012colonoscopy, adenomatous polyp 2004colonoscopy, [...] S he is single and comes fom [facility]. She has no children. * Medications: T akingAtorvastatin Calcium 10 MG Tablet TAKE 1 TABLET BY MOUTH EVERY DAY Pulmicort Flexhaler 180 MCG/ACT Aerosol Powder Breath Activated 2 puffs Inhalation Twice a day , Notes to Pharmacist: October-MarchProAir HFA 108 (90 Base) MCG/ACT Aerosol Solution 2 puffs as needed Inhalation every 4 hrs , Notes to Pharmacist: PRNVitamin E Calcium + D Allopurinol 100 MG Tablet TAKE 1 TABLET BY MOUTH DAILY Oral Triamcinolone Acetonide 0.1 % Cream External Sodium Polystyrene Sulfonate - Powder as directed Orally 30 grams per week amLODIPine Besylate 5 MG Tablet TAKE 1 TABLET BY MOUTH EVERY DAY Medication List reviewed and reconciled with the patientTaking Atorvastatin Calcium 10 MG Tablet TAKE 1 TABLET BY MOUTH EVERY DAY Taking Pulmicort Flexhaler 180 MCG/ACT Aerosol Powder Breath Activated 2 puffs Inhalation Twice a day , Notes to Pharmacist: October- ProAir HFA 108 (90 Base) MCG/ACT Aerosol Solution 2 puffs as needed Inhalation every 4 hrs , Notes to Pharmacist: PRNTaking Vitamin E Taking Calcium + D Taking Allopurinol 100 MG Tablet TAKE 1 TABLET BY MOUTH DAILY Oral Taking Triamcinolone Acetonide 0.1 % Cream External Taking Sodium Polystyrene Sulfonate - Powder as directed Orally 30 grams per week Taking amLODIPine Besylate 5 MG Tablet TAKE 1 TABLET BY MOUTH EVERY DAY Medication List reviewed and reconciled with the patient * Allergies: S divya[Allergies Verified] Objective: * Vitals: H t: 65, Wt:114, BMI:18.97, BP:125/60, HR:59, Temp:97.7, Ht-cm: 165.1, Wt-k.71. * Examination: G eneral Examination: GENERAL APPEARANCE: [...] extremities, sensory exam intact. PSYCH: a lert, oriented, thought process logical, goal directed, speech clear, cognitive function intact. Assessment: * Assessment: 1. U nderweight - R63.6 (Primary) N otes :Her weight has been stable lately with a body mass index of 18. 2 . P ancytopenia - D61.818 N otes :All 3 cell lines have been diminished. This is likely due to her chronic renal failure. The mean cell volume remains slightly elevated. It is being observed carefully. 3 . M ild intermittent asthma without complication - J45.20 N otes :She has had no difficulty with asthma lately. She has an inhaler which she has not been using. 4 . O steoarthritis - M19.90 N otes :She will continue on current therapy at this time. She will avoid NSAIDs. 5 . O steoporosis - M81.0 N otes :She has been compliant with his therapy. It was reviewed with her today. 6 . T hyroiditis - E06.9 N otes :This is not an active problem. She remains under the care of her mortician helper. She is asymptomatic at this time. 7 . H yperlipidemia, unspecified - E78.5 N otes :her lipids have been stable. No blood work is available today. A fasting lipid profile has been ordered. No change was made in her regimen. 8 . U nspecified asthma, uncomplicated - J45.909 N otes :She has had no episodes of asthma recently. 9 . M acular degeneration of both eyes, unspecified type - H35.30 ?Notes :Her vision has not changed since her last visit. She really remains under the care of the ophthalmologists. 1 0. S kin cancer - C44.90 N otes :he recently had a basal cell carcinoma removed from the right side of her face and her left arm. There was no sign of residual disease today. 1 1. C KD (chronic kidney disease) stage 3, GFR 30-59 ml/min - N18.3 ? N otes :She remains under the care of Dr. Ashford, her senior account executive. She is now on a kidney transplant list and is being prepared for transplantation. Plan: * Treatment: 2. O thers Continue amLODIPine Besylate Tablet, 5 MG, TAKE 1 TABLET BY MOUTH EVERY DAY; C ontinue Atorvastatin Calcium Tablet, 10 MG, TAKE 1 TABLET BY MOUTH EVERY DAY; C ontinue Pulmicort Flexhaler Aerosol Powder Breath Activated, 180 MCG/ACT, 2 puffs, Inhalation, Twice a day, Notes to Pharmacist: October-March; C ontinue ProAir HFA Aerosol Solution, 108 (90 Base) MCG/ACT, 2 puffs as needed, Inhalation, every 4 hrs, Notes to Pharmacist: PRN; C ontinue Vitamin E; C ontinue Calcium + D;?Continue Allopurinol Tablet, 100 MG, TAKE 1 TABLET BY MOUTH DAILY, Oral; C ontinue Triamcinolone Acetonide Cream, 0.1 %, External; C ontinue Sodium Polystyrene Sulfonate Powder, -, as directed, Orally, 30 grams per week. * Procedure Codes: * Preventive Medicine: Counseling: C are goal follow-up plan: Counseling for abnormal BMI given Y es Below Normal BMI Follow-up D ietary education for weight gain, Dietary management education, guidance, and counseling, Feeding regime, Lifestyle education regarding diet, Nutrition / feeding management, Prescribed diet education, Special diet education, Intervention, Order not done: Medical or Other reason not done * Follow Up: A s Scheduled (Reason: Annual Exam) * Images: * Sign off status: Completed true * Provider: Wan Edwards MD Date: 0 11/21/2024 Generated for Deepikai brent/Ngoc/Angelaitting on: 09:52 AM EST History and Physical Notes * [...] normal RECTAL EXAM: not examined PSYCH: alert, oriented, tho ught process logical, goal directed, speech clear, cognitive function intact ORAL CAVITY: normal, unremarkable
--- OUTSIDE RECORDS SUMMARY | 2025-01-11 04:59 | XMS_ITS ---
Author Organization Meño Edwards III, MD Address [address] [place] [address] Care Team Providers Care Tip Stretcher Name Role Phone Dr. Meño Edwards III Primary Care Provider [phone] REASON FOR VISIT Rx Request Social History Sex Assigned At : Social History Observation Description Sex Assigned At Female Encounters Encounter Location Date Provider Diagnosis Meño Edwards III, MD [address] [place] [address] [place] [address] 01/11/2025 Meño Edwards Plan Of Treatment Next Appt Details Provider Name:Meño Edwards , 07/10/2025 09:30:00 AM, [address] [place] [address] [place], [address], Provider Name:Meño Edwards , 04/23/2026 09:30:00 AM, [address] [place] [address] [place], [address], Progress Notes * Jacy DOMINIQUE SDOB: [birth year] (69 yo F)Acc No.[id number]:01/11/2025 Patient: Aidee ADAMSIMBA Jacy Alexandro :1955 A ge:69 Y S ex:Female Address:[place] [address] * true * Date: Generated for Printi ng/Faxing/eTransmitting on: 09:52 AM EST
--- OUTSIDE RECORDS SUMMARY | 2025-01-11 06:51 | XMS_ITS ---
Author Organization Meño Edwards III, MD Address [address] [place] [address] Care Team Providers Care Tag Stringer Name Role Phone Dr. Meño Edwards III Primary Care Provider Medications Medication SIG (Take, Route, Frequency, Duration) Notes Start Date End Date Status Amoxicillin-Pot Clavulanate 875-125 MG 1 tablet Orally every 12 hrs for 7 days 01/11/2025 01/18/2025 Active Social History Sex Assigned At : Social History Observation Description Sex Assigned At Female Encounters Encounter Location Date Provider Diagnosis Meño Edwards III, MD [address] [place] [address] [place] [address] 01/11/2025 Meño Edwards Plan Of Treatment Medication Medication Name Sig Start Date Stop Date Notes Amoxicillin-Pot Clavulanate 875-125 MG 1 tablet Orally every 12 hrs for 7 days 01/11/2025 01/18/2025 Next Appt Details Provider Name:Meño Edwards , 07/10/2025 09:30:00 AM, [address] [place] [address] [place], [address], Provider Name:Meño Edwards , 04/23/2026 09:30:00 AM, [address] [place] [address] [place], [address], Progress Notes * Jacy DOMINIQUE SDOB: [birth year] (69 yo F)Acc No.[id number]:01/11/2025 Patient: Jacy GARCIA :1955 A ge:69 Y S ex:Female [facility] [place] [address] * Refills Start Amoxicillin-Pot Clavulanate Tablet, 875-125 MG, Orally, 14 Tablet, 1 tablet, every 12 hrs, 7 days, Refills=0 * true * Date: Generated for Timothy kennedy/Ngoc/Angelaitting on: 09:52 AM EST
--- OUTSIDE RECORDS SUMMARY | 2025-04-22 04:30 | XMS_ITS ---
Author Organization Meño Edwards III, MD Address [address] [place] [address] Care Team Providers Care Accident Investigator Name Role Phone Dr. Meño Edwards III Primary Care Provider [phone] Allergies Allergen (clinical drug ingredient) Drug/Non Drug Allergy documented on EMR Reaction Allergy Type Onset Date Status No Known Drug Allergy Unknown Drug Allergy Active No Known Food Allergy Unknown Drug Allergy Active Seasonale Unknown Drug Allergy Active REASON FOR VISIT Annual Exam Medications Medication SIG (Take, Route, Frequency, Duration) Notes Start Date End Date Status Symbicort 160-4.5 MCG/ACT INHALE 2 PUFFS BY MOUTH TWICE DAILY Inhalation Active Allopurinol 100 MG TAKE 1 TABLET BY AYESHA TH DAILY Oral Active Atorvastatin Calcium 10 MG TAKE 1 TABLET BY MOUTH EVERY DAY Active ProAir HFA 108 (90 Base) MCG/ACT 2 puffs as needed Inhalation every 4 hrs PRN Active Carvedilol 6.25 MG 1 tablet with food O ral Twice a day Active amLODIPine Besylate 5 MG TAKE 1 TABLET B Y MOUTH EVERY DAY Active Vitamin D3-Vitamin C Active Social History Tobacco Use: Social History Observation Description Date Details (start date - stop date) Never Smoker NA - NA Sex Assigned At : Social History Observation Description Sex Assigned At Female Tobacco Control (Standard) Question Answer Notes Tobacco use: Nonsmoker Additional Findings: Tobacco non-user Aggressive nonsmoker AUDIT-C (Standard) Question Answer Notes Did you have a drink containing alcohol in the p ast year? No Points 0 Interpretation Negative Vital Signs Temperature 98.4 degrees Fahrenheit 04/22/20 25 Blood pressure systolic 130 mm Hg 04/22/20 25 Blood pressure diastolic 49 mm Hg 025 Heart Rate 57 /min 04/22/2025 Height 65 in 04/22/2025 Weight 113 lbs 04/22/2025 BMI 18.8 kg/m2 04/22/2025 Encounters Encounter Location Date Provider Diagnosis Meño Edwards III, MD [address] [place] [address] [address] [place], [place] [id number] 04/22/2025 Meño Edwards Underweight R63.6 ; Pancytopenia D61.818 ; Mild intermittent asthma without complication J45.20 ; Acute idiopathic gout involving toe of left foot M10.072 ; Hyperlipidemia, unspecified E78.5 ; Chronic kidney disease, stage 3a N18.31 ; Osteoporosis M81.0 and Hypercholesterolemia E78.00 Assessments Encounter Date Diagnosis (ICD Code) Assessment Notes T reatment Notes Treatment Clinical Notes 04/22/2025 Underweight (ICD-10 - R63.6) Her weight has been stable lately with a body mass index of 18. 04/22/2025 Pancytopenia (ICD-10 - D61.818) All 3 cell lines have been diminished. This is likely due to her chronic renal failure. The mean cell volume remains slightly elevated. It is being observed carefully. 04/22/2025 Mild intermittent as thma without complication (ICD-10 - J45.20) She has had no difficulty with asthma lately. She has an inhaler which she has not been using. 04/22/2025 Acute idiopathic gou t involving toe of left foot (ICD-10 - M10.072) The gout has now resolved and she is on allopurinol. 04/22/2025 Hyperlipidemia, unspecified (ICD-10 - E78.5) her lipids have been stable. No blood work is available today. A fasting lipid profile has been ordered. No change was made in her regimen. 04/22/2025 Chronic kidney disea se, stage 3a (ICD-10 - N18.31) Her GFR is 10. She is on a list to receive a kidney transplant. She may need to begin dialysis if her renal function deteriorates further. She is up-to-date with nephrology. 04/22/2025 Osteoporosis (ICD-10 - M81.0) She has been compliant with his therapy. It was reviewed with her today. 04/22/2025 Hypercholesterolemia (ICD-10 - E78.00) Comprehensive blood work with a fasting lipid profile is being done periodically. No change in her medication was made today. Her lipids have been controlled. Plan Of Treatment Medication Medication Name Sig Start Date Stop Date Notes Symbicort 160-4.5 MCG/ACT INHALE 2 PUFFS BY MOUTH TWICE DAILY Inhalation Allopurinol 100 MG TAKE 1 TABLET BY AYESHA TH DAILY Oral Atorvastatin Calcium 10 MG TAKE 1 TABLET BY MOUTH EVERY DAY ProAir HFA 108 (90 Base) MCG/ACT 2 puffs as needed Inhalation every 4 hrs PRN Carvedilol 6.25 MG 1 tablet with food O ral Twice a day amLODIPine Besylate 5 MG TAKE 1 TABLET B Y MOUTH EVERY DAY Vitamin D3-Vitamin C Next Appt Details Follow Up: 3 Months, Reason: OV Provider Name:Meño Edwards , 07/10/2025 09:30:00 AM, [address] [place] [address] [address], [place], [address], Provider Name:Meño Edwards , 04/23/2026 09:30:00 AM, [address] [place] [address] [address], [place], [address], Progress Notes * Jacy DOMINIQUE SDOB: [birth year] (70 yo F)Acc No.[id number]:04/22/2025 Progress Notes Patient: Jacy GARCIA Provider: Wan Edwards MD :1955 A ge:70 Y S ex:Female Date:04/22/2025 Address:[address] [place], [place] [address] [id number] Subjective: * Chief Complaints: * A nnual Exam * HPI: D epression Screening: She returns to the office at the age of 70 for her annual examination for she has lost 1 pound in remains underweight but is stable. Her appetite iss good. She has noted an upper respiratory infection a couple of weeks ago and now has mild benign positional vertigo. She is breathing comfortably and has a mild cough but no chest pain. She finds it difficult to fall asleep but once she does sleep through the night. She has had no asthma. Her vision is unchanged. She is uup-to-date with her visits to nephrology and is on a kidney transplant list at this time. Her BUN and creatinine are stable but elevated.She is following a low potassium diet. PHQ-9 L ittle interest or pleasure in doing things?Not at all F eeling down, depressed, or hopeless N ot at all T rouble falling or staying asleep, or sleeping too much N ot at all F eeling tired or having little energy N ot at all P oor appetite or overeating N ot at all F eeling bad about yourself or that [...] N ot at all T otal Score 0 Interpretation and Intervention D epression Screening Findings N egative C OVID-19 Screening: Questions H ave you had any new onset fever, chills, cough, congestion, sore throat, shortness of breath, muscle aches? N o S SRIDHAR Questions: SDOH Questions [...] o falls in the past year * ROS: G eneral/Constitutional: pain o nly [...] w isdom teeth extraction tonsillectomy septum repair [id number] right cataract surgery 2012colonoscopy, adenomatous polyp 2004colonoscopy, wnl 2009biopsy on left index finger 09/2018Basal Cell removed, Left arm 3Basal Cell right cheek 2023 * Hospitalization/Major Diagno stic Procedure: N o history * Family History: F ather: 95 yrs, hyperlipidemia, hypertension, diagnosed with Cancer, HTN, Hyperlipidemia. M other: 75 yrs, liver cancer, adult onset diabetes mellitus, diagnosed with DM, Cancer. S pouse: alive. 1 brother(s) . . She has no children. A brother at one year old. She is not aware of any family history of mental illness or addiction or substance use disorder. * Social History: T obacco Use: T obacco Control (Standard) T obacco use: N onsmoker A dditional Findings: Tobacco non-user A ggressive nonsmoker D rugs/Alcohol: D rugs H ave you used drugs other than those for medical reasons in the past 12 months? N o D rug/Alcohol: A REMY-C (Standard) D id you have a drink containing alcohol in the past year? N o P oints 0 I nterpretation N egative S he is single and comes fom [facility]. She has no children. * Medications: T akingVitamin D3-Vitamin C amLODIPine Besylate 5 MG Tablet TAKE 1 TABLET BY MOUTH EVERY DAY Atorvastatin Calcium 10 MG Tablet TAKE 1 TABLET BY MOUTH EVERY DAY Allopurinol 100 MG Tablet TAKE 1 TABLET BY MOUTH DAILY Oral Carvedilol 6.25 MG Tablet 1 tablet with food Oral Twice a day ProAir HFA 108 (90 Base) MCG/ACT Aerosol Solution 2 puffs as needed Inhalation every 4 hrs , Notes to Pharmacist: PRNSymbicort 160-4.5 MCG/ACT Aerosol INHALE 2 PUFFS BY MOUTH TWICE DAILY Inhalation Taking Vitamin D3-Vitamin C Taking amLODIPine Besylate 5 MG Tablet TAKE 1 TABLET BY MOUTH EVERY DAY Taking Atorvastatin Calcium 10 MG Tablet TAKE 1 TABLET BY MOUTH EVERY DAY Taking Allopurinol 100 MG Tablet TAKE 1 TABLET BY MOUTH DAILY Oral Taking Carvedilol 6.25 MG Tablet 1 tablet with food Oral Twice a day Taking ProAir HFA 108 (90 Base) MCG/ACT Aerosol Solution 2 puffs as needed Inhalation every 4 hrs , Notes to Pharmacist: PRNTaking Symbicort 160-4.5 MCG/ACT Aerosol INHALE 2 PUFFS BY MOUTH TWICE DAILY Inhalation DiscontinuedPulmicort Flexhaler 180 MCG/ACT Aerosol Powder Breath Activated 2 puffs Inhalation Twice a day , Notes to Pharmacist: October- MarchVitamin E Calcium + D Triamcinolone Acetonide 0.1 % Cream External Sodium Polystyrene Sulfonate - Powder as directed Orally 30 grams per week Medication List reviewed and reconciled with the patientDiscontinued Pulmicort Flexhaler 180 MCG/ACT Aerosol Powder Breath Activated 2 puffs Inhalation Twice a day , Notes to Pharmacist: October-MarchDiscontinued Vitamin E Discontinued Calcium + D Discontinued Triamcinolone Acetonide 0.1 % Cream External Discontinued Sodium Polystyrene Sulfonate - Powder as directed Orally 30 grams per week Medication List reviewed and reconciled with the patient * Allergies: S easonaleNo Known Food AllergyNo Known Drug Allergyno[Allergies Verified] Objective: * Vitals: H t: 65, Wt:113, BMI:18.8, BP:130/49, HR:57, Temp:98.4, Ht-cm: 165.1, Wt-k.26. * P ast Orders: Lab:Complete Blood Count Aut o Diff * Collection Date 04/17/2025 03/26/2025 02/26/2025 Collection Time 11:50 AM 04:13 PM 01:14 PM Order Date 04/17/2025 03/26/2025 02/26/2025 White Blood Count 4.2 L (Ref Range: 4.8-10.8 X10*3/uL) 3.2 L (Ref Range: 4.8-10.8 X10*3/uL) 5.4 (Ref Range: 4.8-10.8 X10*3/uL) Red Blood Count 3.13 L (Ref Range: 4.20-5.50 X10*6/uL) 2.80 L (Ref Range: 4.20-5.50 X10*6/uL) 3.05 L (Ref Range: 4.20-5.50 X10*6/uL) Hemoglobin 9.5 L (Ref Range: 12.0-16.0 g/dl) 8.5 L (Ref Range: 12.0-16.0 g/dl) 9.4 L (Ref Range: 12.0-16.0 g/dl) Hematocrit 31.1 L (Ref Range: 37.0-47.0 %) 27.6 L (Ref Range: 37.0-47.0 %) 29.4 L (Ref Range: 37.0-47.0 %) Mean Corpuscular Volume 99.4 H (Ref Range: 80.0-98.0 fL) 98.6 H (Ref Range: 80.0-98.0 fL) 96.4 (Ref Range: 80.0-98.0 fL) Mean Corpuscular Hemoglobin 30.4 (Ref Range: 27.0-33.0 pg) 30.4 (Ref Range: 27.0-33.0 pg) 30.8 (Ref Range: 27.0-33.0 pg) Mean Corpuscular HGB Conc 30.5 L (Ref Range: 31.0-35.0 g/dl) 30.8 L (Ref Range: 31.0-35.0 g/dl) 32.0 (Ref Range: 31.0-35.0 g/dl) Red Cell Distribution Width 13.8 (Ref Range: 11.0-16.0 %) 13.6 (Ref Range: 11.0-16.0 %) 13.7 (Ref Range: 11.0-16.0 %) Platelet Count 136 L (Ref Range: 160-400 X10*3/uL) 137 L (Ref Range: 160-400 X10*3/uL) 132 L (Ref Range: 160-400 X10*3/uL) Mean Platelet Volume 11.6 (Ref Range: 9.4-12.3 fL) 11.8 (Ref Range: 9.4-12.3 fL) 11.5 (Ref Range: 9.4-12.3 fL) Neutrophils Percent Auto 66.3 (Ref Range: 45-73 %) 53.0 (Ref Range: 45-73 %) 73.6 H (Ref Range: 45-73 %) Imm Gran Pct Auto 0.2 (Ref Range: 0.0-0.4 %) 0.3 (Ref Range: 0.0-0.4 %) 0.6 H (Ref Range: 0.0-0.4 %) Lymphocytes Percent Auto 21.2 (Ref Range: 20-40 %) 30.5 (Ref Range: 20-40 %) 16.4 L (Ref Range: 20-40 %) Monocytes Percent Auto 7.5 (Ref Range: 2-11 %) 11.5 H (Ref Range: 2-11 %) 6.8 (Ref Range: 2-11 %) Eosinophils Percent Auto 4.3 H (Ref Range: 0-4 %) 4.4 H (Ref Range: 0-4 %) 2.2 (Ref Range: 0-4 %) Basophils Percent Auto 0.5 (Ref Range: 0-2 %) 0.3 (Ref Range: 0-2 %) 0.4 (Ref Range: 0-2 %) NRBC Pct Auto 0.0 (Ref Range: 0.0-0.2 /100WBC) 0.0 (Ref Range: 0.0-0.2 /100WBC) 0.0 (Ref Range: 0.0-0.2 /100WBC) Neutrophils Absolute Auto 2.8 (Ref Range: 2.0-8.3 x10*3/uL) 1.7 L (Ref Range: 2.0-8.3 x10*3/uL) 4.0 (Ref Range: 2.0-8.3 x10*3/uL) Imm Gran Abs Auto 0.01 (Ref Range: 0.00-0.03 X10*3/uL) 0.01 (Ref Range: 0.00-0.03 X10*3/uL) 0.03 (Ref Range: 0.00-0.03 X10*3/uL) Lymphocytes Absolute Auto 0.9 L (Ref Range: 1.2-4.9 X10*3/uL) 1.0 L (Ref Range: 1.2-4.9 X10*3/uL) 0.9 L (Ref Range: 1.2-4.9 X10*3/uL) Monocytes Absolute Auto 0.3 (Ref Range: 0.1-1.2 X10*3/uL) 0.4 (Ref Range: [...] X10*3/uL) 0.000 (Ref Range: 0.0-0.012 X10*3/uL) * Lab:Electrolytes * Collection Date 03/26/2025 02/26/2025 08/28/2024 Collection Time 04:13 PM 01:14 PM 07:34 AM Order Date 03/26/2025 02/26/2025 08/28/2024 Sodium 145 (Ref Range: 135-145 mmol/L) 138 (Ref Range: 135-145 mmol/L) 141 (Ref Range: 135-145 mmol/L) Potassium 4.8 (Ref Range: 3.3-5.1 mmol/L) 5.4 H (Ref Range: 3.3-5.1 mmol/L) 5.4 H (Ref Range: 3.3-5.1 mmol/L) Chloride 112 H (Ref Range: 96-108 mmol/L) 103 (Ref Range: 96-108 mmol/L) 112 H (Ref Range: 96-108 mmol/L) Carbon Dioxide 24 (Ref Range: 22-29 mmol/L) 26 (Ref Range: 22-29 mmol/L) 20 L (Ref Range: 22-29 mmol/L) Anion Gap 14 (Ref Range: 12-20) 14 (Ref Range: 12-20) 14 (Ref Range: 12-20) * Lab:Blood Urea Nitrogen * Collection Date 03/26/2025 02/26/2025 08/28/2024 Collection Time 04:13 PM 01:14 PM 07:34 AM Order Date 03/26/2025 02/26/2025 08/28/2024 Blood Urea Nitrogen 75 H (Ref Range: 9-16 mg/dL) 70 H (Ref Range: 9-16 mg/dL) 99 H (Ref Range: 9-16 mg/dL) * Lab:Calcium * Collection Date 03/26/2025 02/26/2025 08/28/2024 Collection Time 04:13 PM 01:14 PM 07:34 AM Order Date 03/26/2025 02/26/2025 08/28/2024 Calcium 8.6 (Ref Range: 8.4-10.2 mg/dL) 9.1 (Ref Range: 8.4-10.2 mg/dL) 9.0 (Ref Range: 8.4-10.2 mg/dL) * Lab:Creatinine * Collection Date 03/26/2025 02/26/2025 08/28/2024 Collection Time 04:13 PM 01:14 PM 07:34 AM Order Date 03/26/2025 02/26/2025 08/28/2024 Creatinine 4.52 HH (Ref Range: 0.5-1.4 mg/dL) 3.67 H (Ref Range: 0.5-1.4 mg/dL) 3.45 H (Ref Range: 0.5-1.4 mg/dL) Estimated Glomerular Filt Rate 10 12 13 * Lab:Lipid Panel * Collection Date 04/17/2025 08/21/2024 04/13/2024 Collection Time 11:50 AM 09:02 AM 07:26 AM Order Date 04/17/2025 08/21/2024 04/13/2024 Triglycerides 106 (Ref Range: <150 mg/dL) 125 (Ref Range: <150 mg/dL) 95 (Ref Range: <150 mg/dL) Cholesterol 197 (Ref Range: <200 mg/dL) 218 H (Ref Range: <200 mg/dL) 212 H (Ref Range: <200 mg/dL) LDL Cholesterol Calculated 103 H (Ref Range: <100 mg/dL) 117 H (Ref Range: <100 mg/dL) 98 (Ref Range: <100 mg/dL) HDL Cholesterol 73 (Ref Range: >40 mg/dL) 76 (Ref Range: >40 mg/dL) 95 (Ref Range: >40 mg/dL) * Lab:Comprehensive [place]. Pane l Fast * Collection Date 04/17/2025 08/21/2024 04/13/2024 Collection Time 11:50 AM 09:02 AM 07:26 AM Order Date 04/17/2025 08/21/2024 04/13/2024 Sodium 146 H (Ref Range: 135-145 mmol/L) 143 (Ref Range: 135-145 mmol/L) 143 (Ref Range: 135-145 mmol/L) Bilirubin Total 0.3 (Ref Range: 0.0-1.0 mg/dL) 0.2 (Ref Range: 0.0-1.0 mg/dL) 0.3 (Ref Range: 0.0-1.0 mg/dL) Aspartate Amino Transferase 43 H (Ref Range: 5-31 U/L) 51 H (Ref Range: 5-31 U/L) 44 H (Ref Range: 5-31 U/L) Alanine Aminotransferase 38 H (Ref Range: 0-31 U/L) 49 H (Ref Range: 0-31 U/L) 37 H (Ref Range: 0-31 U/L) Total Protein 6.5 (Ref Range: 6.5-8.0 g/dL) 6.9 (Ref Range: 6.5-8.0 g/dL) 6.9 (Ref Range: 6.5-8.0 g/dL) Albumin Level 4.3 (Ref Range: 3.5-5.0 g/dL) 4.1 (Ref Range: 3.5-5.0 g/dL) 4.3 (Ref Range: 3.5-5.0 g/dL) Alkaline Phosphatase 144 H (Ref Range: 39-117 U/L) 127 H (Ref Range: 39-117 U/L) 111 (Ref Range: 39-117 U/L) Potassium 4.4 (Ref Range: 3.3-5.1 mmol/L) 5.4 H (Ref Range: 3.3-5.1 mmol/L) 4.8 (Ref Range: 3.3-5.1 mmol/L) Chloride 109 H (Ref Range: 96-108 mmol/L) 114 H (Ref Range: 96-108 mmol/L) 109 H (Ref Range: 96-108 mmol/L) Carbon Dioxide 30 H (Ref Range: 22-29 mmol/L) 22 (Ref Range: 22-29 mmol/L) 26 (Ref Range: 22-29 mmol/L) Anion Gap 11 L (Ref Range: 12-20) 12 (Ref Range: 12-20) 13 (Ref Range: 12-20) Blood Urea Nitrogen 67 H (Ref Range: 9-16 mg/dL) 107 H (Ref Range: 9-16 mg/dL) 84 H (Ref Range: 9-16 mg/dL) Creatinine 3.67 H (Ref Range: 0.5-1.4 mg/dL) 3.94 H (Ref Range: 0.5-1.4 mg/dL) 3.13 H (Ref Range: 0.5-1.4 mg/dL) Estimated Glomerular Filt Rate 12 11 15 Glucose Fasting 91 (Ref Range: 60-99 mg/dL) 93 (Ref Range: 60-99 mg/dL) 98 (Ref Range: 60-99 mg/dL) Calcium 9.4 (Ref Range: 8.4-10.2 mg/dL) 9.3 (Ref Range: 8.4-10.2 mg/dL) 9.8 (Ref Range: 8.4-10.2 mg/dL) * Examination: G eneral Examination: GENERAL APPEARANCE: p leasant, well nourished, well developed, in no acute distress, calm and relaxed: underweight: woman: underweight: woman. HEAD: a traumatic, normocephalic. EYES: e [...] lear to auscultation . BREASTS: N ot examined, Prefers AUTO CLAIM REPRESENTATIVE. ABDOMEN: b owel sounds normal, no ascites, no organomegaly, no mass, underweight. RECTAL EXAM: n ot examined, Prefers AUTO CLAIM REPRESENTATIVE. MUSCULOSKELETAL: e xtremities unremarkable, no clubbing, cyanosis or edema. PERIPHERAL PULSES: n ormal. NEUROLOGIC: a lert and oriented, cranial nerves 2-12 grossly intact, deep tendon reflexes 2+ symmetrical, motor strength normal upper and lower extremities, sensory exam intact. PSYCH: a lert, oriented: good eye contact: cooperative with exam: cognitive function intact: thought process logical, goal directed: speech clear. ? Assessment: * Assessment: 1. U nderweight - [...] she has not been using. 4 . A cute idiopathic gout involving toe of left foot - M10.072 ?Notes :The gout has now resolved and she is on allopurinol. 5 . H yperlipidemia, unspecified - E78.5 N otes :her lipids have been stable. No blood work is available today. A fasting lipid profile has been ordered. No change was made in her regimen. 6 . C hronic kidney disease, stage 3a - N18.31 N otes :Her GFR is 10. She is on a list to receive a kidney transplant. She may need to begin dialysis if her renal function deteriorates further. She is up-to-date with nephrology. 7 . O steoporosis - M81.0 N otes :She has been compliant with his therapy. It was reviewed with her today. 8 . H ypercholesterolemia - E78.00 N otes :Comprehensive blood work with a fasting lipid profile is being done periodically. No change in her medication was made today. Her lipids have been controlled. Plan: * Treatment: * Procedure Codes: * Preventive Medicine: Counseling: [...] Other reason not done * Follow Up: 3 Months (Reason: OV) * Images: * Sign off status: Completed true * Provider: Wan Edwards MD Date: 1 Generated for Timothy kennedy/Ngoc/eTransmitting on: 09:53 AM EST History and Physical Notes * HPI (History of Present Illness) Category Sub-Category Detail Notes Depression Screening PHQ-9 Little inte rest or pleasure in doing things: Not at all Feeling down, depressed, or hopeless: No t at all Trouble falling or staying asleep, or sl eeping too much: Not at all Feeling tired or having little energy: N ot at all Poor appetite or overeating: Not at all Feeling bad about yourself o r that [...] some way: Not at all Total Score: 0 Interpretation and Intervention Depression Kian rush Findings: Negative Fall Risk Screening Fall History Have you had any falls with injury in the past year?: No Have you had two or more falls in the year?: No Fall Risk Assessment:: No falls in the year COVID-19 Screening Questions Have you had any new onset fever, chills, cough, congestion, sore throat, shortness of breath, muscle aches?: No SDOH Questions SDOH Questions In the [...] developed, in no acute distress, calm and relaxed: underweight: woman: underweight: woman HEAD: atraumatic, normocep halic EYES: eomi, perrla, anicte mart, conjugate EARS: normal NOSE: septum intact NECK/THYROID: no jugular venous di stention, no carotid bruit, thyroid normal HEART: no clicks, gallops, murmurs, or rubs, regular rhythm, S1, S2 normal, no s3, or vascular bruits LUNGS: clear to auscultatio n ABDOMEN: bowel sounds normal, no ascites, no organomegaly, no mass, underweight NEUROLOGIC: alert and oriented, cranial nerves 2-12 grossly intact, deep tendon reflexes 2+ symmetrical, motor strength normal upper and lower extremities, sensory exam intact SKIN: no suspicious lesion s, anicteric PERIPHERAL PULSES: normal BREASTS: Not examined, Prefer s AUTO CLAIM REPRESENTATIVE MUSCULOSKELETAL: extremities unremark able, no clubbing, cyanosis or edema LYMPH NODES: no enlarged lymph no ivett,spleen normal RECTAL EXAM: not examined, Prefer s AUTO CLAIM REPRESENTATIVE PSYCH: alert, oriented: goo d eye contact: cooperative with exam: cognitive function intact: thought process logical, goal directed: speech clear ORAL CAVITY: normal, unremarkable
--- NOTE | ~2025-06-25 | US_ITS ---
CLINICAL HISTORY: R32 - Unspecified urinary incontinence US Renal Comparison: None provided Findings: Right kidney normal size and echotexture, 8.7 cm length. Left kidney normal size and echotexture, 7.9 cm length. There is a right renal cortical 1.7 x 1.4 x 1.2 cm Bosniak 1 cyst. No hydronephrosis of either kidney. Normal color Doppler. Urinary bladder is unremarkable. Prevoid volume 163.0 mL. Postvoid volume 7.0mL. Bilateral ureteral jets are visualized. IMPRESSION: 1. No acute findings. This document has been electronically signed by: Shyam Rodríguez MD on 06/26/2025 10:10:37
[2025-06-25 09:25] LABS: MANUAL DIFF FLAG NO
[2025-06-25 09:43] LABS: Hematocrit 31.4 % (37.0-47.0); Hemoglobin 9.6 g/dl (12.0-16.0); Imm Gran Abs Auto 0.01 X10*3/uL (0.00-0.03); Imm Gran Pct Auto 0.2 % (0.0-0.4); Lymphocytes Absolute Auto 0.7 X10*3/uL (1.2-4.9); Mean Corpuscular HGB Conc 30.6 g/dl (31.0-35.0); Mean Corpuscular Hemoglobin 30.4 pg (27.0-33.0); Mean Corpuscular Volume 99.4 fL (80.0-98.0); NRBC Abs Auto 0.000 X10*3/uL (0.0-0.012); NRBC Pct Auto 0.0 /100WBC (0.0-0.2); Platelet Count 131 X10*3/uL (160-400); Red Blood Count 3.16 X10*6/uL (4.20-5.50); White Blood Count 5.0 X10*3/uL (4.8-10.8)
--- OUTSIDE RECORDS SUMMARY | 2025-06-25 09:52 | XMS_ITS | Patient Health Record ---
Author Organization [facility] Address [address] [place] [address] Care Team Providers Care Consumer Sales Representative Name Role Phone Meño Edwards MD Primary Care Provider London Méndez Unavailable [phone] Allergies Allergen (clinical drug ingredient) Drug/Non Drug [...] Date Coverage End Date Medicare National Govt [employer] [address] [place] [address] [id number] Jacy Goldberg Self - patient is the insured [employer] [address] [place] [address] [phone] [id number] Jacy Goldberg Self - patient is the insured Medical (General) History Medical History History ICD Code asthma Back pain CAD (Cholesterol) Cataracts Measles Mumps Kidney disease chronic sinusitis Warts Surgical History Surgery Date(Month/Year) tonsillectomy and adenoidectomy wisdom teeth extraction 1971 cataract surgery 10/28/2015 deviated septum repair 1976
--- OUTSIDE RECORDS SUMMARY | 2025-06-25 09:52 | XMS_ITS | Continuity of Care Document ---
Author Organization [facility] Address [address] [place] [address] Phone [phone] Social History Type Date Description Comments Sex Female Sex Unknown Medical Devices Description No Information Available Encounters Description No Information Available Assessments Description No Information Available Plan of Treatment No Information Available Functional Status Description No Information Available Mental Status Description No Information Available Referrals Description No Information Available
--- OUTSIDE RECORDS SUMMARY | 2025-06-25 09:52 | XMS_ITS | Clinical Summary ---
Author Organization [facility] Address [address] [place] [address] Care Team Providers Care Analytical Data Miner Name Role Phone Unavailable Primary Care Provider [...]
--- OUTSIDE RECORDS SUMMARY | 2025-06-25 09:53 | XMS_ITS | Clinical Summary ---
Author Organization [facility] Address [address] [place] [address] Phone Care Team Providers Care Shipper Name Role Phone Meño Edwards MD Primary Care Provider [phone] Allergies Active Allergy Reactions Criticality Noted Date [...] patient's age to complete this topic Insurance [facility] Medicare [facility] Medicare Care Teams Shipper Relationship Specialty Start Date End Date Meño Edwards MD [address] [place] [address] [address] [place], [place] PCP - General 07/07/20
--- OUTSIDE RECORDS SUMMARY | 2025-06-25 09:53 | XMS_ITS | Patient Health Record ---
Author Organization [facility] Address [address] [place] [address] Care Team Providers Care Supervisory Forester Name Role Phone Meño Edwards MD Primary [...] Status Risk Notes Problem Colon cancer screening (303856954) Colon cancer screening (V76.51) Active confirmed Problem Colon cancer screening (287070039) Colon cancer screening (Z12.11) Active confirmed Problem History of polyp of colon (situation) (656615565) Personal history of colonic polyps (Z86.010) Active confirmed Problem Long-term current use of drug therapy (713963270) Long-term current use of high risk medication other than anticoagulant (Z79.899) Active confirmed Plan Of Treatment Future Test Test Name Order Date COLONOSCOPY 04/01/2014 COLONOSCOPY 07/28/2020 Insurance Providers Payer Name Payer Address Payer Phone Subscriber Number Group Number Insured Name Patient Relationship to Insured Coverage Start Date Coverage End Date MEDICARE OF [place] [address] [place] [address] [id number] MENA DOMINIQUE Self - patient is the insured [employer] CLAIM[employer] [address] [place] [address] [id number] MENA DOMINIQUE Self - patient is the [...]
--- OUTSIDE RECORDS SUMMARY | 2025-06-25 09:53 | XMS_ITS | Patient Health Record ---
Author Organization Meño Edwards III, MD Address [address] [address] Care Team Providers Care Blue Crabber Name Role Phone Dr. Meño Edwards III [...] ff Reviewed date:08/25/2024 06:24:46 PM Interpretation: Performing Lab:[facility], [address] [place] [phone] Notes/Report: White Blood Count 4.5 4.8-10.8 X10*3/uL [...] NRBC Abs Auto 0.000 0.0-0.012 X10*3/uL Comprehensive Rosalia. Panel Fa st Reviewed date:08/25/2024 06:24:46 PM Interpretation: Performing Lab:[facility], [address] [place] [phone] Notes/Report: Sodium 143 135-145 mmol/L Potassium 5.4 [...] Panel Reviewed date:08/25/2024 06:24:46 PM Interpretation: Performing Lab:[facility], [address] [place] [phone] Notes/Report: Triglycerides 125 <150 mg/dL Desirable Triglyceride: [...] Thyroxine) Reviewed date:08/25/2024 06:24:46 PM Interpretation: Performing Lab:[address] [phone] Notes/Report: Free T4 (Free Thyroxine) 0.93 0.71-1.85 ng/dL Thyroid Stimulating Hormone Reviewed date:08/25/2024 06:24:47 PM Interpretation: Performing Lab:[facility], [address] [place] [phone] Notes/Report: Thyroid Stimulating Hormone 4.83 0.32-4.0 uIU/mL Note: A sustained TSH level above 2.5 uIU/mL may warrant further investigation. TSH 3rd Generation ([facility]) Complete Blood Count Auto Di ff Reviewed date:09/09/2024 10:16:33 AM Interpretation: Performing Lab:[facility], [address] [place] [phone] Notes/Report: White Blood Count 4.3 4.8-10.8 X10*3/uL [...] Electrolytes Reviewed date:09/09/2024 10:16:33 AM Interpretation: Performing Lab:[address] [phone] Notes/Report: Sodium 141 135-145 mmol/L Potassium 5.4 3.3-5.1 mmol/L Chloride 112 96-108 mmol/L Carbon Dioxide 20 22-29 mmol/L Anion Gap 14 12-20 Blood Urea Nitrogen Reviewed date:09/09/2024 10:16:33 AM Interpretation: Performing Lab:[facility], [address] [place] [phone] Notes/Report: Blood Urea Nitrogen 99 9-16 mg/dL Creatinine Reviewed date:09/09/2024 10:16:33 AM Interpretation: Performing Lab:[facility], [address] [place] [phone] Notes/Report: Creatinine 3.45 0.5-1.4 mg/dL Estimated Glomerular Filt Rate 13 Chronic Kidney Disease: Estimated GFR < 60 mL/min/1.73m2 Severe Kidney Disease: Estimated GFR < 15 mL/min/1.73m2 Calcium Reviewed date:09/09/2024 10:16:33 AM Interpretation: Performing Lab:[facility], [address] [place] [phone] Notes/Report: Calcium 9.0 8.4-10.2 mg/dL IRON PROFILE Reviewed date:09/09/2024 10:16:33 AM Interpretation: Performing Lab:[facility], [address] [place] [phone] Notes/Report: Iron 85 30-160 mcg/dL Total Iron Binding Capacity 344 228-428 mcg/dL Percent Iron Saturation 25 15-50 % Unsaturated Iron Binding 259 Ferritin Reviewed date:09/09/2024 10:16:33 AM Interpretation: Performing Lab:[facility], [address] [place] [phone] Notes/Report: Ferritin 50 10-250 ng/mL Vitamin D 25-OH Total Reviewed date:09/09/2024 10:16:33 AM Interpretation: Performing Lab:[facility], [address] [place] [phone] Notes/Report: Vitamin D 25-OH Total 37.3 >30 [...] Intact Reviewed date:09/09/2024 10:16:33 AM Interpretation: Performing Lab:[facility], [address] [place] [phone] Notes/Report: Parathyroid Hormone Intact 289.2 8.7-77.1 pg/mL MAMMOGRAM DIGITAL BILATERAL SCREEN Reviewed date:04/22/2025 09:38:00 AM Interpretation:undefined Performing Lab: Notes/Report: undefined MM tomosynthesis screening B I Reviewed date:10/05/2024 08:33:40 PM Interpretation: Performing Lab: Notes/Report: [address] [place] [address] Mammography Report Signed Patient: Jacy Goldberg MR#: [id number] : 1955 Acct:[id number] Age/Sex: 69 / F ADM Date: 09/24/24 Loc: HO.MAMMO Attending Dr: Meño Edwards MD Ordering Physician: Meño Edwards MD Results: 2Benign Findings Date of Service: 09/24/24 Follow Up: 1 Year From Orig inal Mammogram Procedure(s): MM tomosynthesis screening BI Accession Number(s): [id number] cc: Meño Edwards MD EXAMINATION: MM SCREENING [...] 09/29/24 1733 DD/ 0830 TD/TT: 09/24/24 0852 Client Sales And Service Officer: [address] [place] [address] Mammography Report Signed Patient: Shubham Goldberg MR#: [id number] : 1955 Acct:[id number] Age/Sex: 69 / F ADM Date: 09/24/24 Loc: HO.MAMMO Attending Dr: Meño Edwards MD Ordering Physician: Meño Edwards MD Results: 2Benign Findings Date of Service: 09/24/24 Follow Up: 1 Year From Orig ina Mammogram Procedure(s): MM tomosynthesis screening BI Accession Number(s): [id number] cc: Meño Edwards MD EXAMINATION: MM SCREENING [...] 09/29/24 1733 DD/ 0830 TD/TT: 09/24/24 0852 Client Sales And Service Officer: Complete Blood Count Auto Di ff Reviewed date:02/27/2025 04:48:33 AM Interpretation: Performing Lab:[facility], [address] [place] [phone] Notes/Report: White Blood Count 5.4 4.8-10.8 X10*3/uL [...] Electrolytes Reviewed date:02/27/2025 04:48:33 AM Interpretation: Performing Lab:[facility], [address] [place] [phone] Notes/Report: Sodium 138 135-145 mmol/L Potassium 5.4 3.3-5.1 mmol/L Chloride 103 96-108 mmol/L Carbon Dioxide 26 22-29 mmol/L Anion Gap 14 12-20 Blood Urea Nitrogen Reviewed date:02/27/2025 04:48:33 AM Interpretation: Performing Lab:[address] [phone] Notes/Report: Blood Urea Nitrogen 70 9-16 mg/dL Creatinine Reviewed date:02/27/2025 04:48:33 AM Interpretation: Performing Lab:[facility], [address] [place] [phone] Notes/Report: Creatinine 3.67 0.5-1.4 mg/dL Estimated Glomerular Filt Rate 12 Chronic Kidney Disease: Estimated GFR < 60 mL/min/1.73m2 Severe Kidney Disease: Estimated GFR < 15 mL/min/1.73m2 Calcium Reviewed date:02/27/2025 04:48:33 AM Interpretation: Performing Lab:[facility], [address] [place] [phone] Notes/Report: Calcium 9.1 8.4-10.2 mg/dL Complete Blood Count Auto Di ff Reviewed date:03/31/2025 07:57:19 AM Interpretation: Performing Lab:[facility], [address] [place] [phone] Notes/Report: White Blood Count 3.2 4.8-10.8 X10*3/uL [...] Electrolytes Reviewed date:03/31/2025 07:57:19 AM Interpretation: Performing Lab:[facility], [address] [place] [phone] Notes/Report: Sodium 145 135-145 mmol/L Potassium 4.8 3.3-5.1 mmol/L Chloride 112 96-108 mmol/L Carbon Dioxide 24 22-29 mmol/L Anion Gap 14 12-20 Blood Urea Nitrogen Reviewed date:03/31/2025 07:57:19 AM Interpretation: Performing Lab:[facility], [address] [place] [phone] Notes/Report: Blood Urea Nitrogen 75 9-16 mg/dL Creatinine Reviewed date:03/31/2025 07:57:19 AM Interpretation: Performing Lab:[address] [address] Notes/Report: Creatinine 4.52 0.5-1.4 mg/dL Critical value for test(s): CREA Results called to and read back by: DR. ZURITA Person calling: [email or web address] Date: 03-26-25 Time: 1834 Estimated Glomerular Filt Rate 10 Chronic Kidney Disease: Estimated GFR < 60 mL/min/1.73m2 Severe Kidney Disease: Estimated GFR < 15 mL/min/1.73m2 Calcium Reviewed date:03/31/2025 07:57:19 AM Interpretation: Performing Lab:[address] [phone] Notes/Report: Calcium 8.6 8.4-10.2 mg/dL Complete Blood Count Auto Di ff Reviewed date:04/21/2025 07:29:42 AM Interpretation: Performing Lab:[address] [phone] Notes/Report: White Blood Count 4.2 4.8-10.8 X10*3/uL [...] NRBC Abs Auto 0.000 0.0-0.012 X10*3/uL Comprehensive Rosalia. Panel Fa st Reviewed date:04/21/2025 07:29:42 AM Interpretation: Performing Lab:[facility], [address] [place] [phone] Notes/Report: Sodium 146 135-145 mmol/L Potassium 4.4 [...] Panel Reviewed date:04/21/2025 07:29:42 AM Interpretation: Performing Lab:[address] [address] Notes/Report: Triglycerides 106 <150 mg/dL Desirable Triglyceride: [...] low results in patients with liver disease. Complete Blood Count Auto Di ff (Not yet reviewed by provider) Interpretation: Performing Lab:[facility], [address] [place] [phone] Notes/Report: White Blood Count 5.0 4.8-10.8 X10*3/uL Red Blood Count 3.16 4.20-5.50 X10*6/uL Hemoglobin 9.6 12.0-16.0 g/dl Hematocrit 31.4 37.0-47.0 % Mean Corpuscular Volume 99.4 80.0-98.0 fL Mean Corpuscular Hemoglobin 30.4 27.0-33.0 pg Mean Corpuscular HGB Conc 30.6 31.0-35.0 g/dl Red Cell Distribution Width 14.2 11.0-16.0 % Platelet Count 131 160-400 X10*3/uL Mean Platelet Volume 11.4 9.4-12.3 fL Neutrophils Percent Auto 75.2 45-73 % Imm Gran Pct Auto 0.2 0.0-0.4 % Lymphocytes Percent Auto 14.4 20-40 % Monocytes Percent Auto 6.2 2-11 % Eosinophils Percent Auto 3.4 0-4 % Basophils Percent Auto 0.6 0-2 % NRBC Pct Auto 0.0 0.0-0.2 /100WBC Neutrophils Absolute Auto 3.8 2.0-8.3 x10*3/uL Imm Gran Abs Auto 0.01 0.00-0.03 X10*3/uL Lymphocytes Absolute Auto 0.7 1.2-4.9 X10*3/uL Monocytes Absolute Auto 0.3 0.1-1.2 X10*3/uL Eosinophils Absolute Auto 0.2 0.0-0.4 X10*3/uL Basophils Absolute Auto 0.0 0.0-0.2 X10*3/uL NRBC Abs Auto 0.000 0.0-0.012 X10*3/uL Reason For Referral No Information Medications Medication [...] Problem Status W/U Status Risk Notes Problem 601851067 Underweight (R63.6) Active confirmed Her weight has been stable lately with a body mass index of 18. Problem 927955096 Pancytopenia (D61.818) Active confirmed All 3 cell line s have been diminished. This is likely due to her chronic renal failure. The mean cell volume remains slightly elevated. It is being observed carefully. Problem 625355389 Skin cancer (C44.90) Active confirmed he recently had a basal cell carcinoma removed from the right side of her face and her left arm. There was no sign of residual disease today. Problem Hyperlipidemia (88425213) Hyperlipidemia, unspecified (E78.5) Active confirmed her lipids have been stable. No blood work is available today. A fasting lipid profile has been ordered. No change was made in her regimen. Problem Uncomplicated asthma (disorder) (807817947) Unspecified asthma, uncomplicated (J45.909) Active confirmed She has had no episodes of asthma recently. Problem 805007359 Mild intermittent asthma without complication (J45.20) Active confirmed She has had no difficulty with asthma lately. She has an inhaler which she has not been using. Problem 66668932 Cataracts, bilateral (H26.9) Active confirmed She will continue to see the cardiology tech to resolved these problems. Problem Osteoporosis (37020761) Osteoporosis (M81.0) Active confirmed She has been compliant with his therapy. It was reviewed with her today. Problem 529865177 Osteoarthritis (M19.90) Active confirmed She will continue on current therapy at this time. She will avoid NSAIDs. Problem 84555588 Thyroiditis (E06.9) Active confirmed This is not an active problem. She remains under the care of her packaging line attendant. She is asymptomatic at this time. Problem Hypercholesterole brian (42141459) Hypercholestero lemia (E78.00) Active confirmed Comprehensive blood work with a fasting lipid profile is being done periodically. No change in her medication was made today. Her lipids have been controlled. Problem 330620130 Macular degeneration of both eyes, unspecified type (H35.30) Active confirmed Her vision has not changed since her last visit. She really remains under the care of the ophthalmologists . Problem Chronic kidney disease stage 3A (disorder) (846639460) Chronic kidney disease, stage 3a (N18.31) Active confirmed Her GFR is 10. She is on a list to receive a kidney transplant. She may need to begin dialysis if her renal function deteriorates further. She is up-to-date with nephrology. Problem 48883723 Acute idiopathic gout involving toe of left [...] Date Provider Diagnosis Meño Edwards III, MD [address] [place] [address] [place] [address] 08/23/2024 Meño Edwards Underweight R63.6 ; CKD (chronic kidney disease) stage 3, GFR 30-59 ml/min N18.3 ; Mild intermittent asthma without complication J45.20 ; Thrombocytopenia D69.6 ; Thyroiditis E06.9 and Osteoporosis M81.0 Meño Edwards III, MD [address] [place] [address] [place] [address] 11/21/2024 Meño Edwards Underweight R63.6 ; Pancytopenia D61.818 ; Mild intermittent asthma without complication J45.20 ; Osteoarthritis M19.90 ; Osteoporosis M81.0 ; Thyroiditis E06.9 ; Hyperlipidemia, unspecified E78.5 ; Unspecified asthma, uncomplicated J45.909 ; Macular degeneration of both eyes, unspecified type H35.30 ; Skin cancer C44.90 and CKD (chronic kidney disease) stage 3, GFR 30-59 ml/min N18.3 Meño Edwards III, MD [address] [place] [address] [place] [address] 04/22/2025 Meño Edwards Underweight R63.6 ; Pancytopenia D61.818 ; Mild intermittent asthma without complication J45.20 ; Acute idiopathic gout involving toe of left foot M10.072 ; Hyperlipidemia, unspecified E78.5 ; Chronic kidney disease, stage 3a N18.31 ; Osteoporosis M81.0 and Hypercholesterolemia E78.00 Meño Edwards III, MD [address] [place] [address] [place] [address] 08/31/2024 Meño Edwards III, MD [address] [place] [address] [place] [address] 01/11/2025 Meño Edwards III, MD [address] [place] [address] [place] [address] 01/11/2025 Meño Edwards Assessments Encounter Date Diagnosis [...] list for a kidney transplant by her human resources manager manufacturing. 11/21/2024 Underweight (ICD-10 - R63.6) Her weight [...] She remains under the care of her packaging line attendant. She is asymptomatic at this time. 11/21/2024 [...] She remains under the care of her packaging line attendant. She is asymptomatic at this time. 04/22/2025 [...] under the care of Dr. Ashford, her human resources manager manufacturing. She is now on a kidney transplant [...] DIFF 01/31/2024 Complete Blood Count Auto Diff Uric Acid 11/21/2024 Lipid Panel 08/23/2024 Lipid Panel 10/20/2023 Lipid Panel 08/14/2021 Lipid Panel 04/19/2024 Lipid Panel 04/07/2023 Lipid Panel 04/13/2021 Lipid Panel 11/21/2024 Vitamin D 25-OH Total 11/21/2024 Vitamin D 25-OH Total 04/07/2023 Free T4 (Free Thyroxine) 04/19/2024 Next Appt Details Provider Name:Meño Negron Grace , 07/10/2025 09:30:00 AM, [address] [place] [address] [place] [place], [place], [address], Provider Name:Meño Migdalia Grace , 04/23/2026 09:30:00 AM, [address] [place] [address] [place], [place], [address], Insurance Providers Payer Name Payer Address Payer Phone Subscriber Number Group Number Insured Name Patient Relationship to Insured Coverage Start Date Coverage End Date MEDICARE N[place] [address] [place] [phone] [id number] Jacy Goldberg Self - patient is the insured [employer] [facility] [address] [place], [place] [id number] [phone] [id number] Jacy Goldberg Self - patient is the insured Medical (General) History Medical History History ICD Code degenerative arthritis of the cervical s pine spine asthma osteoarthritis hemorhoids thrombocytopenia cataracts last bilateral mammogram 12/18/2012 @ [facility] R&I anemia hyperthyroid abnormal renal function Surgical History Surgery Date(Month/Year) Basal Cell right cheek 2023 Basal Cell removed, Left arm 01/10/2023 biopsy on left index finger 09/2018 colonoscopy, wnl 2008 colonoscopy, adenomatous polyp 2003 right cataract surgery 2011 [id number] septum repair tonsillectomy wisdom teeth extraction Hospitalization History Reason Date(Month/Year) No history
[2025-06-25 12:11] LABS: Anion Gap 11 (12-20); Blood Urea Nitrogen 100 mg/dL (9-16); Calcium 9.2 mg/dL (8.4-10.2); Carbon Dioxide 24 mmol/L (22-29); Chloride 109 mmol/L (96-108); Estimated Glomerular Filt Rate 12; Potassium 5.2 mmol/L (3.3-5.1); Sodium 139 mmol/L (135-145)
== END 2025-06-25 08:18 | disposition home or self-care (01) ==
LOC: HO.US 08:17
PROVIDERS: Absent Provider Internal Medicine Nephrology; PCP Internal Medicine Medical Oncology; Visit Provider Urology
DX: N39.498 Other specified urinary incontinence (principal); I15.1 Hypertension secondary to other renal disorders; N25.81 Secondary hyperparathyroidism of renal origin; N18.4 Chronic kidney disease, stage 4 (severe); D63.1 Anemia in chronic kidney disease
CPT/HCPCS: 36415; 76770; 80051; 82310; 82565; 84520; 85025

== ENCOUNTER → 2025-06-25 08:22 | Outpatient (BNV) | payer MEDICARE, SELFPAY | PROVIDERS: Absent Provider Internal Medicine Nephrology; PCP Internal Medicine Medical Oncology; Visit Provider Specialist | DX: N28.1 Cyst of kidney, acquired (principal); R32 Unspecified urinary incontinence | CPT/HCPCS: 76770 ==